=== PATIENT | male | born 1945 | race Caucasian/White ===

== ENCOUNTER 2019-08-26 11:26 | Observation (INO) | payer MEDICARE, SELFPAY ==
[2019-08-25 13:25] VITALS: BMI 28.7
[2019-08-26] VITALS (20 sets, daily range): BP systolic 102–148; BP diastolic 44–83; PULSE 43–67; RESP 14–24; TEMP 36.6–36.8; O2SAT 94–953
--- NOTE | 2019-08-26 06:00 | XACV_ITS ---
Ht: 183 cm Wt: 96 kg BSA: 2.23 m2 Gender: Male : 1945 Any Known Allergies: No known allergies Exam Priority: Routine Procedure(s): Procedure Description: Diagnostic procedure Procedure Description: PCI procedure Procedure Description: Left Heart Catheterization Procedure Description: Left ventriculography Procedure Description: Drug Eluting Coronary Stent Procedure Description: Coronary Angiography Diagnostic Cath Status: Elective Diagnostic Findings Patient with known coronary artery disease and remote occlusion of the LAD many years ago. Last angiogram in July 2017 revealing a significant lesion in the second obtuse marginal branch which was stented. Minor disease in the first obtuse marginal branch and mid right coronary artery. The LAD was occluded. 3 months ago came back to the office with what was atypical discomfort at first. Visited the emergency room several times. Initially declined stress testing and then the insurance company declined to allow angiography. Stress testing accomplished recently which revealed fixed defect in the distribution of the anterior wall and right coronary arteries. Estimated nuclear ejection fraction 25%. Estimated ejection fraction by echo 35%. Angiography performed via the right radial artery. The left main coronary artery is normal. The LAD is occluded at its origin. This is a chronic occlusion. The first obtuse marginal branch contains a 60% stenosis in the proximal portion. The second obtuse marginal branch is normal. The stented area is normal. The right coronary artery is a large dominant vessel and contains an ulcerated, eccentric 90% stenosis in the midportion. PCI Status: Elective PCI LVEF Assessed: Yes PCI Indication: New Onset Angina <= 2 months Interventional Findings The mid right coronary artery was stented primarily without event with a good angiographic result. Decision for PCI with Surgical Consult: No PCI for Multi-vessel Disease: No Conclusions Chronic occlusion of the LAD. Previously placed second obtuse marginal branch stent patent. New lesion mid right coronary artery primarily stented. Ejection fraction 35%. Wall motion disturbance in the distribution of the LAD as previously noted. Recommendations Medical therapy. Interventional RX Recommendation: PCI w/o planned CABG Diagnostic RX Recommendation: PCI w/o planned CABG Anticoagulation: Heparin Ventriculography Ejection Fraction: 35.0 % Left Ventriculography Findings: Mild hypokinesis of the inferior base and mid inferior wall. Mild hypokinesis of the anterior base. Akinesis of mid anterior wall and apex. Pressures Phase:Rest AO : 137 mmHg / 55 mmHg ( 85 mmHg ) @ 1:26:00 AM 113 mmHg / 43 mmHg ( 70 mmHg ) @ 1:36:00 AM 116 mmHg / 42 mmHg ( 70 mmHg ) @ 1:36:00 AM 95 mmHg / 41 mmHg ( 63 mmHg ) @ 1:44:00 AM 98 mmHg / 37 mmHg ( 56 mmHg ) @ 1:47:00 AM LV : 131 mmHg / 2 mmHg / @ 1:33:00 AM 128 mmHg / 0 mmHg / @ 1:36:00 AM 128 mmHg / 0 mmHg / @ 1:36:00 AM Valves Phase:DefaultPhase AV : 14.0 mmHg @ 7:57:07 AM 14.0 mmHg @ 7:57:07 AM AV Mean Gradient: 15.0 mmHg @ 7:57:07 AM 15.0 mmHg @ 7:57:07 AM Clinical Evaluation EBL: 5mL-10mL Procedural Details Procedure Consent Obtained. Pre-Procedure Time Out. Identified patient by full name and date of as verbalized by the patient/guarantor. Does the consent match the physician's order: Yes. Accurate & Complete Informed Consent: Yes. Inpatient/Outpatient History & Physical on Chart: Yes. If H&P is completed, is and addenduem needed: No; If yes, is the addendum complete: N/A. Visualize and Verify Site with Patient/Guarantor: N/A. Relevant Radiology Images available: N/A. Pre-op teaching completed and patient verbalized understanding. The risks, benefits, and alternatives of sedation and/or procedure were discussed by physician. The patient agrees to continue. Procedure started. Correct patient, site and procedure confirmed by cath team. PERRLA. Strong, equal hand deputy sheriff k9 handler bilaterally. Lungs clear x 5 lobes. IV Site on Arrival: 20 gauge in the left anticubital. IV Fluids: 0.9% NaCl at KVO. 0 mL infused prior to finishing lab technician. Pre Procedural Pulses: bilateral dorsalis pedis was Doppled. Pre Procedural Pulses: bilateral posterior tibial was Doppled. Pre Procedural Pulses: bilateral radial was 2+. Oxygen started at 2liters/min via nasal canula. bilateral groins was prepped with chloroprep then draped in the usual sterile fashion. Physician arrived. Equipment: 6F - Femoral. Cardiac Cath Pack. ACIST Manifold Kit Model BT 2000. Heparinized Saline (2 units/mL), 1000 mL bag. [facility] Clinical Fraility Score: 4: Vulnerable. 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 Chest Pain Symptom Assessment: Atypical Angina. Cardiovascular Instability: No. Baseline sample Acquired. HR: 59 BPM. Physician scrubbed in. Immediate Pre-Procedure Time Out. Correct Patient: Yes; Correct Procedure: Yes; Correct Site: Yes; Correct Patient Position: Yes; Correct Supplies: Yes; Dried Flammable Prep: Yes; Blood Products Available: N/A;. right radial was prepped with chloroprep then draped in the usual sterile fashion. Lidocaine 1% infiltrated to the right radial. Arterial access obtained. A 6 aust[place]ian TIG catheter in over wire. Multiple views taken of left coronary artery. Catheter redirected to the RCA. Multiple views taken of right coronary artery. Catheter removed over the exchange wire. A CRD 6F 145 degree Pigtail 110cm Diagnostic Catheter was advanced over the wire and used for Ventriculography. EDP Sample taken: LV 131/2,25; HR: 58 BPM; SpO2: 93%. LV gram performed in [place] @ 10 mL/second for a total of 30 mL. EDP Sample taken: LV 128/0,23; HR: 65 BPM; SpO2: 92%. Pullback taken: LV 128/0,23; AO 113/43(70); Mean: 15mmHg, Peak to Peak: 14mmHg, SEP: 21sec/min; HR: 61 BPM; SpO2: 93%. Catheter removed over the exchange wire. Inventory is [employer]onic [place] XT .014 190cm Str. Guidewire. Inventory is CRD 6FR JR 4 GUIDE 100cm. 6 aust[place]ian JR 4 guide catheter was inserted over the wire. [place] guidewire was advanced through the guide catheter to lesion in the prox RCA. Patient's family updated. Inflation Number : 1 Priya Londono ANJALI 3.5X15 LIZBETH -Lot Number# [id number] (exp date 06/01/2021) was prepped and advanced across the Mid RCA. The stent was deployed at 12 VANIA for 0:48 seconds. Results checked. Stent balloon and wire out. Guide catheter out. Physician scrubbed out. A TR Band was successful obtaining hemostatsis at the Right Radial artery insertion site. TR band placed. Hemostasis obtained. Post Procedure: Pulses reassessed and unchanged. PERRLA. Strong, equal hand deputy sheriff k9 handler bilaterally. No VTE prophylaxis required. Medication's Wasted: Lidocaine 1% = 18 mL. Medication's Wasted: Heparin = 1000 units. Total IV fluids: 50 mL. Complications: none. PCI Indication: unstable Angina. Estimated blood loss: 5mL-10mL. Procedure completed. Patient transferred by wheelchair to CPRU. Vital chart was stopped. Site: Right Radial artery Sheath Size: 6 Fr Hemostasis Method: TR Band Hemostasis Success: Successful Procedure Medications Start: 7:21 AM Stop: 7:21 AM Medication: Versed Amount: 1 mg Route: I.V. Start: 7:21 AM Stop: 7:21 AM Medication: Fentanyl Amount: 50 mcg Route: I.V. Start: 7:23 AM Stop: 7:23 AM Medication: Verapamil Amount: 5 mg Route: I.A. Start: 7:29 AM Stop: 7:29 AM Medication: Heparin Amount: 5000 units Route: I.V. Start: 7:37 AM Stop: 7:37 AM Medication: Versed Amount: 1 mg Route: I.V. Start: 7:37 AM Stop: 7:37 AM Medication: Fentanyl Amount: 50 mcg Route: I.V. I, the attending physician, have reviewed and verified all procedure medications. Yes, all medications given per verbal order History/Risk Factors Hypertension: Yes Dyslipidemia: Yes Peripheral Arterial Disease (PAD): No Myocardial Infarction (AR): Yes Obesity: No Renal Disease: No Tobacco Use: Former Prior Interventions PCI: Yes CABG: No Valve Surgery: No Date of PCI: 07/23/2017 Report Signatures Finalized by:Dr. Marcos Manley MD on 08/26/2019 8:08:55 AM
[2019-08-26] MEDS: diphenhydrAMINE 50 mg Capsule PO (06:24)
[2019-08-26 06:35] LABS: Basophils # 0.1 10^3/uL (0.0-0.1); Basophils % 0.9 %; Eosinophils # 0.8 10^3/uL (0.0-0.8); Eosinophils % 11.9 %; Hematocrit 40.5 % (42.0-52.0); Hemoglobin 13.6 g/dL (11.7-16.6); Lymphocytes # 1.3 10^3/uL (0.8-4.8); Lymphocytes % 20.8 %; Mean Corpuscular HGB Conc 33.6 g/dL (30.0-36.0); Mean Corpuscular Hemoglobin 30.8 pg (28.0-34.0); Mean Corpuscular Volume 91.8 fL (80-94); Mean Platelet Volume 11.1 fL (7.4-10.4); Monocytes # 0.6 10^3/uL (0.2-0.9); Monocytes % 8.6 %; Neutrophils # 3.7 10^3/uL (1.8-7.7); Neutrophils % 57.5 %; Nucleated Red Blood Cells % 0 %; Platelet Count 178 10^3/cmm (130-400); Red Blood Count 4.41 10^6/uL (4.1-5.3); Red Cell Distribution Width 12.6 % (12.1-15.1); White Blood Count 6.4 10^3/uL (4.0-10.0)
[2019-08-26 06:48] LABS: Anion Gap 14.2 (5-19); Blood Urea Nitrogen 21 mg/dL (8-23); Calcium 9.5 mg/dL (8.5-10.5); Carbon Dioxide 24 mmol/L (22-29); Chloride 106 mmol/L (98-107); Glucose 98 mg/dL (65-115); Osmolality Calculated 287 mOsm/kg (285-295); Potassium 4.2 mmol/L (3.5-5.1); Sodium 140 mmol/L (136-145)
--- NOTE | 2019-08-26 07:01 | PM.HP ---
Providers/Chief Complaint Admitting Physician: Vineet Primary Care Provider: Gregorio Cunningham DO Chief Complaint: left heart cath History of Present Illness Juarez Delgado is a 73 year old male who is being brought in electively for cardiac catheterization. He has an old anterior wall ME in July 2017 underwent coronary angiography. This revealed an LAD occlusion proximally with an ejection fraction of 35% and wall motion disturbance in this area. The circumflex was stented at that time. His pulmonary artery pressure was 35 mmHg. He has done relatively well since that time. I last saw him in May when he was complaining of chest pain off and on. He had been to the emergency room twice for chest pain. He also has a history of hypertension, dyslipidemia, chronic tobacco abuse, COPD and mild aortic stenosis. At the time I saw him in May he wanted something else done. Initially the insurance company declined the angiogram. They wanted a stress test first. He refused this. He is still having symptoms and so he has now been scheduled for angiography. Review of Systems General: Reports: 10 or more systems reviewed and unremarkable except in HPI and below Medications/Allergies Home Medications Medication Instructions Recorded Confirmed Last Taken Type aspirin 81 mg PO DAILY 08/25/19 08/25/19 08/26/19 04:30 History atorvastatin 40 mg PO DAILY 08/25/19 08/25/19 08/26/19 04:30 History carvedilol 3.125 mg PO BID 08/25/19 08/25/19 08/26/19 04:30 History levothyroxine [Synthroid] 75 mcg PO DAILY 08/25/19 08/25/19 08/26/19 04:30 History losartan 50 mg PO DAILY 08/25/19 08/25/19 08/26/19 04:30 History spironolactone 25 mg PO DAILY 08/25/19 08/25/19 08/26/19 04:30 History Allergies Allergy/AdvReac Type Severity Reaction Status Date / Time No Known Allergies Allergy Verified 08/26/19 06:50 PFSH Acute PFSH: Medical History (Updated 08/26/19 @ 07:08 by Marcos Manley MD) AMI (acute myocardial infarction) Previous anterior wall ME with occluded LAD Aortic stenosis CAD (coronary artery disease) Chronic kidney disease (CKD) stage G1/A1, glomerular filtration rate (GFR) equal to or greater than 90 mL/min/1.73 square meter and albuminuria creatinine ratio less than 30 mg/g COPD (chronic obstructive pulmonary disease) Dyspnea Erectile dysfunction HLD (hyperlipidemia) HTN (hypertension) Hypothyroidism Ischemic cardiomyopathy Squamous cell carcinoma skin of arm Tobacco abuse Social History Smoking and tobacco status: former smoker Quit status (tobacco): has quit using tobacco Alcohol intake: current Alcohol intake frequency: few times a month Vitals/I&O/Wt Last Vital Signs Temp 98.3 F 08/26/19 06:40 Pulse 58 L 08/26/19 06:40 Resp 16 08/26/19 06:40 BP 148/59 08/26/19 06:40 Pulse Ox 98 08/26/19 06:40 Weight last 48 hrs Weight 212 lb Physical Exam Narrative: EXAM NARRATIVE: GENERAL: In general he looks and feels well HEENT: Exam within normal limits. NECK: Supple without jugular vein distention. The carotid upstroke is normal without bruits. BACK: Exam normal. LUNGS: Clear. HEART: Regular rate and rhythm. ABDOMEN: Benign without organomegaly or tenderness. EXTREMITIES: No edema. NEUROLOGIC: Exam normal. SKIN: Unremarkable. Data : 08/26/19 06:25 08/26/19 06:25 A&P Assessment and plan (1) Chronic kidney disease (CKD) stage G1/A1, glomerular filtration rate (GFR) equal to or greater than 90 mL/min/1.73 square meter and albuminuria creatinine ratio less than 30 mg/g: Status: Acute Code(s): N18.1 - Chronic kidney disease, stage 1 (2) AMI (acute myocardial infarction): Status: Acute Code(s): I21.9 - Acute myocardial infarction, unspecified (3) Aortic stenosis: Status: Acute Code(s): I35.0 - Nonrheumatic aortic (valve) stenosis (4) CAD (coronary artery disease): Status: Acute Code(s): I25.10 - Atherosclerotic heart disease of [place] coronary artery without angina pectoris (5) COPD (chronic obstructive pulmonary disease): Status: Acute Code(s): J44.9 - Chronic obstructive pulmonary disease, unspecified (6) HLD (hyperlipidemia): Status: Acute Code(s): E78.5 - Hyperlipidemia, unspecified (7) HTN (hypertension): Status: Acute Code(s): I10 - Essential (primary) hypertension (8) Ischemic cardiomyopathy: Status: Acute Code(s): I25.5 - Ischemic cardiomyopathy (9) Tobacco abuse: Status: Acute Code(s): Z72.0 - Tobacco use (10) Chest pain: Status: Acute Code(s): R07.9 - Chest pain, unspecified Additional A&P Information Patient will undergo coronary angiography today because of chest discomfort. Further recommendations dependent upon the results of the test. Attestations Medical Necessity Statement*: Patient will be an outpatient in a bed. Will not need 2 midnight stay. Time Spent in Patient Care: Greater than 35 minutes Coding Level of Care Code Acute Electronic Security Technician for Chg Fwd History Detailed Exam Detailed Medical Decision Making Moderate Complexity Diagnoses Chronic kidney disease (CKD) stage G1/A1, glomerular filtration rate (GFR) equal to or greater than 90 mL/min/1.73 square meter and albuminuria creatinine ratio less than 30 mg/g N18.1 AMI (acute myocardial infarction) I21.9 Aortic stenosis I35.0 CAD (coronary artery disease) I25.10 COPD (chronic obstructive pulmonary disease) J44.9 HLD (hyperlipidemia) E78.5 HTN (hypertension) I10 Ischemic cardiomyopathy I25.5 Tobacco abuse Z72.0 Chest pain R07.9 Time Spent (min) 35
--- NOTE | 2019-08-26 08:00 | PC.NURSE ---
BACK FROM [facility] RECEIVED PATIENT BACK FROM THE [facility] VIA WHEELCHAIR WITH JOSE ANGEL CHIANG RN, TICKET AGENT, S/P PCI OF THE RCA. PATIENT AMBULATED EASILY TO THE BED. A & O X 3. KNIFE MACHINE OPERATOR PLACED AND VITAL SIGNS OBTAINED. TR BAND INTACT TO THE RIGHT WRIST. NO BLEEDING OR HEMATOMA NOTED. PALPABLE RADIAL PULSE. POST PROCEDURE RIGHT ARM ACTIVITY INSTRUCTIONS GIVEN VERBALLY TO THE PATIENT AND HIS SPOUSE. THEY BOTH VERBALIZED THEIR UNDERSTANDING. WILL CONTINUE TO MONITOR CLOSELY. AWAITING TRANSFER TO ICU ROOM 4 ON OVER FLOW ONCE THE ROOM IS AVAILABLE. NO OTHER ASSESSMENT CHANGES NOTED FROM PRE CATH ASSESSMENT. SPOUSE TO GO HOME SHORTLY TO TAKE CARE OF THE ANIMALS.
[2019-08-26] MEDS: sodium chloride 0.9% 1,000 ML 100 ML IV (08:27)
--- NOTE | 2019-08-26 09:00 | SUR.HOLD ---
BREAKFAST TO THE PATIENT.
--- NOTE | 2019-08-26 09:05 | PC.NURSE ---
TR BAND LETTING THE AIR OUT OF THE TR BAND PER PROTOCOL. PATIENT SITTING UP ON THE SIDE OF THE BED.
--- NOTE | 2019-08-26 09:40 | PC.NURSE ---
OOB NOTE PATIENT OOB AND AMBULATED TO THE RESTROOM. BACK TO THE RECLINER WITH NO PROBLEMS. VITAL SIGNS REMAIN STABLE. CONTINUE TO LET THE AIR OUT OF THE TR BAND. NO OTHER ASSESSMENT CHANGES NOTED.
--- NOTE | 2019-08-26 10:02 | PC.NURSE ---
TR BAND OFF TR BAND REMOVED. NO BLEEDING OR HEMATOMA NOTED. SITE CLEANSED WITH WARM WATER AND DRIED WITH A WASHCLOTH. A LARGE BAND AID WAS APPLIED AND SECURED WITH COBAN. PATIENT REMAINS UP IN CHAIR. NOW AT BEDSIDE. NO OTHER ASSESSMENT CHANGES NOTED.
--- NOTE | 2019-08-26 14:53 | PC.NURSE ---
Cath insertion assessed. Pulses present. Site assessed-no swelling, or bleeding noted. IV removed, catheter intact, and pressure dressing applied. Patient instructions given, patient verbalized understanding. Patient ambulated out of ICU with steady gait noted.
== END 2019-08-26 14:48 | disposition home or self-care (01) ==
LOC: ICU 11:27
PROVIDERS: Admitting Provider Internal Medicine Cardiovascular Disease; Family Provider Electrodiagnostic Medicine; PCP Electrodiagnostic Medicine; Visit Provider Internal Medicine Cardiovascular Disease
DX: I25.82 Chronic total occlusion of coronary artery (principal); I12.9 Hypertensive chronic kidney disease with stage 1 through stage 4 chronic kidney disease, or unspecified chronic kidney disease; N18.1 Chronic kidney disease, stage 1; I35.0 Nonrheumatic aortic (valve) stenosis; I25.10 Atherosclerotic heart disease of native coronary artery without angina pectoris; J44.9 Chronic obstructive pulmonary disease, unspecified; E78.5 Hyperlipidemia, unspecified; R07.9 Chest pain, unspecified; Z79.82 Long term (current) use of aspirin; E03.9 Hypothyroidism, unspecified; Z85.828 Personal history of other malignant neoplasm of skin; Z87.891 Personal history of nicotine dependence; I25.2 Old myocardial infarction
CPT/HCPCS: 12345; 80048; 85025; 93452; C1769; C1874; C1887; C1894; C9600; G0378; J1644; J2001; J2250; J3010; J7030; Q0163; Q9967

== ENCOUNTER → 2019-09-06 10:30 | Outpatient (BNVA) | payer MEDICARE, SELFPAY | PROVIDERS: Family Provider Electrodiagnostic Medicine; PCP Electrodiagnostic Medicine; Visit Provider Nurse Practitioner Family | DX: I25.10 Atherosclerotic heart disease of native coronary artery without angina pectoris (principal) | CPT/HCPCS: 80048 ==

== ENCOUNTER 2020-01-14 19:22 | Inpatient (IN) | payer MEDICARE, SELFPAY ==
[2020-01-14] VITALS (45 sets, daily range): BP systolic 69–111; BP diastolic 47–68; PULSE 63–120; RESP 14–48; TEMP 37.4–38.6; O2SAT 56–100; BMI 23.7
--- NOTE | 2020-01-14 19:30 | XRR_ITS ---
PROCEDURE INFORMATION: Exam: XR Chest, 1 View Exam date and time: 01/14/2020 7:42 PM Age: 74 years old Clinical indication: Dyspnea; Patient HX: Extreme SOB TECHNIQUE: Imaging protocol: XR of the chest Views: 1 view. COMPARISON: CR Chest 1 [place] [id number] 05/08/2019 12:21 AM FINDINGS: Lungs: [id number] bilateral perihilar and lower lobe opacities consistent with pneumonia versus atypical pulmonary edema. Pleural space: Unremarkable. No pleural effusion. No pneumothorax. Heart/Mediastinum: Unremarkable. No cardiomegaly. Bones/joints: Unremarkable. XR/XR chest 1V portable [id number] IMPRESSION: [id number] bilateral perihilar and lower lobe opacities consistent with pneumonia versus atypical pulmonary edema.
--- NOTE | 2020-01-14 19:31 | ECG_ITS ---
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 Measurements Intervals [place] Rate: 122 P: 61 WA: 175 QRS: -75 QRSD: 145 T: 91 QT: 312 QTc: 445 Interpretive Statements SINUS TACHYCARDIA RIGHT BUNDLE BRANCH BLOCK [120+ ms QRS DURATION, UPRIGHT V1, 40+ ms S IN I/aVL/V4/V5/V6] POSSIBLE ANTERIOR MYOCARDIAL INFARCTION , OF INDETERMINATE AGE [30 ms Q WAVE IN V3/V4, OR R < 0.2 mV IN V4] INFERIOR MYOCARDIAL INFARCTION , POSSIBLY ACUTE [40+ ms Q WAVE AND/OR ST/T Compared to ECG 05/08/2019 03:04:45 Myocardial infarct finding now present Sinus bradycardia no longer present Sinus arrhythmia no longer present Left-axis deviation no longer present Electronically Signed On 01-15-2020 13:49:57 CDT by Laura Collado M.D. [email or web address]
[2020-01-14] MEDS: LORazepam 2 mg/mL INJ 1 mL (19:48)
[2020-01-14] MEDS: succinylcholine 20 mg/mL SDV 10mL 160 MG IVP (20:01)
--- NOTE | 2020-01-14 20:02 | P.HP_ITS ---
Providers/Chief Complaint Primary Care Provider: Gregorio Cunningham DO Chief Complaint: SOB History of Present Illness Juarez Delgado is a 74 year old male who carries history of established coronary disease, status post coronary angiogram 08/26/2019 cardiac right radial catheterization revealed normal left main, occlusion of left anterior descending at the origin which is chronic proximal systolic stenosis at first obtuse marginal, second obtuse marginal normal, patent stent, RCA dominant with 90% midportion stenosis status post new stent, EF 45 to 50%, grade 1 diastolic dysfunction,. He also carries history of hypothyroidism, hypertension, dyslipidemia. Patient was seen at the urgent care yesterday for COPD exacerbation for which he was prescribed prednisone and antibiotics. Today he came back for worsening shortness of breath. Family stating that he is considerably active for his age, he works at the [employer]. For last couple of days he has been working outside. Today around noon when he was in his recliner he certainly got short of breath, he asked his to take him to the hospital right away. On arrival to the ER he was taking shallow breaths, extremely tachypneic, hypoxic 50% on room air, he was intubated by Dr. Brown. Kindly see his procedure note. Chest x-ray revealed pulmonary edema. At the time of my evaluation blood gas was taken which showed respiratory acidosis, we will repeat another blood gas in 30 minutes transferring to ICU, requested COVID, procalcitonin d-dimer TSH and BNP. EKG revealed sinus tachycardia heart rate 120, QTc normal, right bundle branch block with wide QRS. I have started him on heparin drip because of recent stent placement. Review of Systems General: Reports: ROS unobtainable due to endotracheal tube Medications/Allergies Home Medications Medication Instructions Recorded Confirmed Last Taken Type aspirin 81 mg PO DAILY 08/25/19 11/15/19 08/26/19 04:30 History atorvastatin 40 mg PO DAILY 08/25/19 11/15/19 08/26/19 04:30 History carvedilol 3.125 mg PO BID 08/25/19 11/15/19 08/26/19 04:30 History levothyroxine [Synthroid] 75 mcg PO DAILY 08/25/19 11/15/19 08/26/19 04:30 History losartan 50 mg tablet 50 mg PO DAILY #90 tab 10/06/19 11/15/19 Unknown Rx spironolactone 25 mg tablet 25 mg PO DAILY #90 tab 11/05/19 11/15/19 Unknown Rx clopidogrel 75 mg tablet 75 mg PO DAILY 90 Days #90 tab 11/15/19 11/15/19 Unknown Rx Allergies Allergy/AdvReac Type Severity Reaction Status Date / Time No Known Allergies Allergy Verified 11/15/19 13:15 PFSH Acute PFSH: Medical History (Updated 01/14/20 @ 23:00 by Francisco Oropeza MD) AMI (acute myocardial infarction) Aortic stenosis CAD (coronary artery disease) Chronic kidney disease (CKD) stage G1/A1, glomerular filtration rate (GFR) equal to or greater than 90 mL/min/1.73 square meter and albuminuria creatinine ratio less than 30 mg/g COPD (chronic obstructive pulmonary disease) Dyspnea Erectile dysfunction HLD (hyperlipidemia) HTN (hypertension) Hypothyroidism Ischemic cardiomyopathy Squamous cell carcinoma skin of arm Tobacco abuse Surgical History (Updated 01/14/20 @ 22:02 by Francisco Oropeza MD) S/P PTCA (percutaneous transluminal coronary angioplasty) August 2019 Family History Brother CAD (coronary artery disease) Social History Smoking and tobacco status: current every day smoker cigarettes Quit status (tobacco): has quit using tobacco Alcohol intake: current Alcohol intake frequency: few times a month Physical Exam Narrative: EXAM NARRATIVE: Head to toe examination Patient is intubated and sedated with propofol, systolic blood pressure 104, Heart rate ranging between 70 to 80s Telemetry showing wide QRS because of right bundle branch block, Bright red blood being suctioned from endotracheal tube CMV 550 tidal volume PEEP of 10, resp rate 14, Sunburned skin S1, S2 sinus tachycardia clinically does not look fluid overloaded Abdomen does not look distended Patient is intubated cannot do neuro assessment however he is waking up on propofol, propofol infusion rate increased Lower extremity no signs of edema gangrene ulcer He has right-sided femoral line which was placed by Dr. Brown Ryan catheter is draining concentrated yellow urine Data : 01/14/20 20:04 01/14/20 20:04 A&P Assessment and plan (1) Respiratory failure: Status: Acute (2) CHF exacerbation: Status: Acute (3) Endotracheally intubated: Status: Acute (4) Community acquired pneumonia: Status: Acute (5) Bilateral pleural effusion: Status: Acute (6) Ischemic cardiomyopathy: Status: Acute (7) COPD (chronic obstructive pulmonary disease): Status: Acute (8) CAD (coronary artery disease): Status: Acute Qualifiers: Associated angina: angina presence unspecified Coronary Disease- Associated Artery/Lesion type: [place] artery [place] vs. transplanted heart: sob[place] heart Qualified Code(s): I25.10 - Atherosclerotic heart disease of [place] coronary artery without angina pectoris (9) Sepsis: Status: Acute (10) Acute respiratory failure with hypoxia and hypercapnia: Status: Acute Additional A&P Information Respiratory failure requiring intubation for acute hypoxic hypercarbic respiratory failure Hypoxic respiratory failure due to CHF exacerbation Bilateral pleural effusion with concerning changes for community-acquired pneumonia I would diurese him with 40 IV Lasix every 12 hours Echo 01/28 showed grade 1 diastolic dysfunction EF 45 to 50% with mild aortic valve regurgitation We will repeat echo in the am, elevated BNP, clinically does not look extremely fluid overloaded Check urine antigens, COVID to be ruled out CMV vent settings tidal volume 550, PEEP 10, pressure rate 14-minute ventilation 9-10, repeat blood gas in 30mins Sepsis Criteria met with fever rectal temperature 101, tachycardia, tachypnea, leukocytosis, high lactic acid Source is most likely community-acquired pneumonia Considering his comorbid condition and COPD I would cover him for MRSA and Pseudomonas with vancomycin and Zosyn to be renally dosed Acute kidney injury secondary to prerenal etiology versus nephrotoxic agent Concentrated urine drained after getting Lasix in the ER Hold losartan for along spironolactone Established multivessel coronary disease with stent placement in RCA in August 2019 I would start him on heparin drip, as a portion of aspirin and Plavix is questionable via NG tube Will check troponin, EKG is revealing right bundle branch block wide QRS sinus tachycardia no signs of ischemia or infarction I am still waiting on troponin series Hypothyroidism: Continue levothyroxine via NG tube We will check TSH Full code Currently on heparin drip because of PCI in August, N.p.o. Family updated Attestations Medical Necessity Statement*: Anticipating stay in the hospital cross more than 2 midnights currently is intubated for CHF exacerbation Time Spent in Patient Care: (>than 50% of time spent in counselling and/or dir ect pt care on unit) . 45mins Coding Level of Care Code Acute Building Superintendent for Chg Fwd Diagnoses Respiratory failure J96.90 CHF exacerbation I50.9 Endotracheally intubated Z97.8 Community acquired pneumonia J18.9 Bilateral pleural effusion J90 Ischemic cardiomyopathy I25.5 COPD (chronic obstructive pulmonary disease) J44.9 CAD (coronary artery disease) I25.10 Associated angina: angina presence unspecified Coronary Disease-Associated Artery/Lesion type: [place] artery [place] vs. transplanted heart: [place] heart Sepsis A41.9 Acute respiratory failure with hypoxia and hypercapnia J96.01; J96.02
[2020-01-14] MEDS: propofol 1,000 MG/100 ML INJ 15.7 MG (20:03)
[2020-01-14] MEDS: fentaNYL 50 mcg/mL INJ 2mL 100 MCG IVP (20:04)
[2020-01-14] MEDS: FUROsemide 10 mg/mL SDV 10mL 80 MG IVP (20:06)
[2020-01-14] MEDS: ipratropium-albuterol 3 mL Neb INHALATION (20:10)
[2020-01-14 20:16] LABS: Basophils % 0.1 %; Eosinophils % 0.1 %; Hematocrit 41.8 % (42.0-52.0); Hemoglobin 13.5 g/dL (11.7-16.6); Lymphocytes # 1.8 10^3/uL (0.8-4.8); Lymphocytes % 12.4 %; Mean Corpuscular HGB Conc 32.3 g/dL (30.0-36.0); Mean Corpuscular Hemoglobin 31.3 pg (28.0-34.0); Mean Corpuscular Volume 96.8 fL (80-94); Mean Platelet Volume 12.3 fL (7.4-10.4); Monocytes # 0.6 10^3/uL (0.2-0.9); Monocytes % 4.2 %; Neutrophils # 11.7 10^3/uL (1.8-7.7); Neutrophils % 82.7 %; Nucleated Red Blood Cells % 0 %; Platelet Count 204 10^3/cmm (130-400); Red Blood Count 4.32 10^6/uL (4.1-5.3); Red Cell Distribution Width 13.1 % (12.1-15.1); White Blood Count 14.2 10^3/uL (4.0-10.0)
[2020-01-14 20:19] LABS: ABG PCO2 55.1 mmHg (35-45); Arterial Blood Gas Hematocrit 41.2 % (42-52); Base Excess ABG -10.8 mmol/L (-2.0-2.0); Blood Gas Sample Site Brachial, right; Blood Gas Sample Type Arterial; Blood Gas Tidal Volume 0.55; Carboxyhemoglobin 1.2 %THgb (0.4-20.1); Fractionated Inspired Oxygen 0.1 %; HCO3 ABG 18.6 mmol/L (22-26); HGB O2 Sat 98.7 % (95-100); Oxygen Device VENT; Total Hemoglobin 13.5 g/dL (14-18)
[2020-01-14 20:20] LABS: ABG PH Result 7.14 (7.35-7.45)
--- NOTE | 2020-01-14 20:21 | XRR_ITS ---
PROCEDURE INFORMATION: Exam: XR Chest, 1 View Exam date and time: 01/14/2020 8:22 PM Age: 74 years old Clinical indication: Dyspnea; Additional info: Post intubation TECHNIQUE: Imaging protocol: XR of the chest Views: 1 view. COMPARISON: CR XR chest 1V portable [id number] 01/14/2020 7:28 PM FINDINGS: Tubes, catheters and devices: ET tube tip over the mid trachea, 4.5 cm proximal to the marie. Enteric tube tip is over the fundus of the stomach (proximal stomach). Lungs: Continued [id number] bilateral lower lobe pneumonia, left greater than right. Pleural space: Unremarkable. No pleural effusion. No pneumothorax. Heart/Mediastinum: Unremarkable. No cardiomegaly. Bones/joints: Unremarkable. XR/XR chest 1V portable [id number] IMPRESSION: 1. ET tube tip over the mid trachea, 4.5 cm proximal to the marie. 2. Enteric tube tip is over the fundus of the stomach (proximal stomach). 3. Continued [id number] bilateral lower lobe pneumonia, left greater than right.
--- NOTE | 2020-01-14 20:23 | W.ED.GENADLT ---
HPI - General Adult General: Chief complaint: Shortness of Breath/Dyspnea Stated complaint: SOB Time Seen by Provider: 01/14/20 19:31 Source: family Mode of arrival: wheelchair Limitations: other (Respiratory distress) History of Present Illness: HPI narrative: History is very limited secondary to patient's respiratory distress. History is taken from the patient's family. Apparently the patient's been having difficulty breathing and coughing for the past 2 days. He was seen at Dr. Cunningham's office yesterday and diagnosed with a COPD exacerbation. He was placed on steroids and antibiotic. Family states that he had heat exhaustion as well as he is been working outside in the heat. Today his respiratory distress became severe necessitating bringing him here to the hospital. Review of Systems General: Reports: ROS unobtainable due to medical condition (Respiratory distress) [facility] ED PFSH: Medical History (Updated 01/15/20 @ 12:55 by Sharmin Mireles) AMI (acute myocardial infarction) Aortic stenosis CAD (coronary artery disease) Chronic kidney disease (CKD) stage G1/A1, glomerular filtration rate (GFR) equal to or greater than 90 mL/min/1.73 square meter and albuminuria creatinine ratio less than 30 mg/g COPD (chronic obstructive pulmonary disease) Dyspnea Erectile dysfunction HLD (hyperlipidemia) HTN (hypertension) Hypothyroidism Ischemic cardiomyopathy Squamous cell carcinoma skin of arm Tobacco abuse Surgical History (Updated 01/15/20 @ 11:24 by Remi Huffman MD) S/P PTCA (percutaneous transluminal coronary angioplasty) August 2019 Family History Brother CAD (coronary artery disease) Social History Smoking and tobacco status: current every day smoker cigarettes Quit status (tobacco): has quit using tobacco Alcohol intake: current Alcohol intake frequency: few times a month Procedures Central Line Placement Right Femoral: Time Out Performed: Yes Patient Placed on Monitor/Pulse Ox: Yes Prep: mask and gloves Ultrasound Used for Placement: Yes Central Line Lumen Inserted: triple Post Procedure: sutured in place, good blood return, all ports aspirated, flushed, capped and sterile dressing applied Post Procedure X-Ray: tip of catheter in good position Patient Tolerated Procedure: well Complications: none Intubation sedative: Etomidate Mg Given: 30 paralytic: Succinylcholine Mg Given: 150 Laryngoscope: fiber optic video scope ET Tube Size: 8 ET Tube Uncuffed: Yes Tube Secured Location: teeth Tube Placement Confirmation: visualized tube passing through cords, equal breath sounds bilaterally and no breath sounds over epigastrium Patient Tolerated Procedure: well and no complications Intubation Complications: none Course Vital Signs: Vital signs: Vital Signs Temperature 95.5 F L 01/15/20 07:00 Pulse Rate 40 L 01/15/20 07:00 Respiratory Rate 19 H 01/15/20 11:29 Blood Pressure 112/54 01/15/20 07:00 Pulse Oximetry 97 01/15/20 07:00 MDM - General Adult MDM Narrative: Medical decision making narrative: Once patient was intubated and central line was placed and radiologic studies were reviewed and the patient was stabilized care was turned over to Dr. Oropeza. He agreed to follow-up on laboratory findings and EKGs and admit to the ICU. Lab Data: Attestation: I reviewed the patient's lab results. Labs: Lab Results 01/14/20 01/14/20 01/14/20 Range/Units 20:04 20:04 20:04 WBC 14.2 H (4.0-10.0) 10^3/ uL RBC 4.32 (4.1-5.3) 10^6/u L Hgb 13.5 (11.7-16.6) g/dL Hct 41.8 L (42.0-52.0) % MCV 96.8 H (80-94) fL MCH 31.3 (28.0-34.0) pg MCHC 32.3 (30.0-36.0) g/dL RDW 13.1 (12.1-15.1) % Plt Count 204 (130-400) 10^3/c mm MPV 12.3 H (7.4-10.4) fL Neut % (Auto) 82.7 % Lymph % (Auto) 12.4 % Pacific % (Auto) 4.2 % Eos % (Auto) 0.1 % Baso % (Auto) 0.1 % Neut # (Auto) 11.7 H (1.8-7.7) 10^3/u L Lymph # (Auto) 1.8 (0.8-4.8) 10^3/u L Pacific # (Auto) 0.6 (0.2-0.9) 10^3/u L Eos # (Auto) 0.0 (0.0-0.8) 10^3/u L Baso # (Auto) 0.0 (0.0-0.1) 10^3/u L Nucleated RBC % (a uto) 0 % Nucleated RBCs # 0.0 /100WBC PT 13.70 H (10.5-13.3) SECO NDS INR 1.02 (0.8-1.2) Specimen Type Sample Site ABG pH (7.35-7.45) ABG pCO2 (35-45) mmHg ABG pO2 (80.0-100.0) mmH g ABG HCO3 (22-26) mmol/L ABG Base Excess (-2.0-2.0) mmol/ L Jae Test Hematocrit (42-52) % Hgb O2 Saturation (95-100) % Carboxyhemoglobin (0.4-20.1) %THgb Total Hemoglobin (14-18) g/dL Respiration Rate % O2 Delivery Device Mechanical Rate FiO2 % Tidal Volume PEEP cmH20 Bag Shop Worker ID Sodium 131 L (136-145) mmol/L Potassium 5.0 (3.5-5.1) mmol/L Chloride 99 (98-107) mmol/L Carbon Dioxide 18 L (22-29) mmol/L Anion Gap 19.0 (5-19) BUN 26 H (8-23) mg/dL Creatinine 1.7 H (0.7-1.2) mg/dL Glucose 220 H (65-115) mg/dL Calculated Osmolal ity 276 L (285-295) mOsm/k g Lactic Acid (0.5-2.2) mmol/L Calcium 8.2 L (8.5-10.5) mg/dL Phosphorus (2.5-4.5) mg/dL Total Bilirubin 0.6 (0.15-1.2) mg/dL AST 306 H (0-40) U/L ALT 189 H (0-41) U/L Alkaline Phosphata se 99 (40-130) IU/L Lactate Dehydrogen ase (135-225) U/L Troponin T Baselin e (0-15) ng/L C-Reactive Protein (0.0-4.9) mg/L NT-Pro-B Natriuret Pep 4726 H (0-125) pg/mL Total Protein 6.8 (6.6-8.7) g/dL Albumin 3.4 L (3.5-5.2) g/dL Globulin 3.4 (1.3-4.6) g/dL Procalcitonin (0-0.5) ng/mL TSH (0.27-4.20) uIU/ mL 01/14/20 01/14/20 01/14/20 Range/Units 20:04 20:04 20:04 WBC (4.0-10.0) 10^3/ uL RBC (4.1-5.3) 10^6/u L Hgb (11.7-16.6) g/dL Hct (42.0-52.0) % MCV (80-94) fL MCH (28.0-34.0) pg MCHC (30.0-36.0) g/dL RDW (12.1-15.1) % Plt Count (130-400) 10^3/c mm MPV (7.4-10.4) fL Neut % (Auto) % Lymph % (Auto) % Pacific % (Auto) % Eos % (Auto) % Baso % (Auto) % Neut # (Auto) (1.8-7.7) 10^3/u L Lymph # (Auto) (0.8-4.8) 10^3/u L [place] # (Auto) (0.2-0.9) 10^3/u L Eos # (Auto) (0.0-0.8) 10^3/u L Baso # (Auto) (0.0-0.1) 10^3/u L Nucleated RBC % (a uto) % Nucleated RBCs # /100WBC PT (10.5-13.3) SECO NDS INR (0.8-1.2) Specimen Type Sample Site ABG pH (7.35-7.45) ABG pCO2 (35-45) mmHg ABG pO2 (80.0-100.0) mmH g ABG HCO3 (22-26) mmol/L ABG Base Excess (-2.0-2.0) mmol/ L Jae Test Hematocrit (42-52) % Hgb O2 Saturation (95-100) % Carboxyhemoglobin (0.4-20.1) %THgb Total Hemoglobin (14-18) g/dL Respiration Rate % O2 Delivery Device Mechanical Rate FiO2 % Tidal Volume PEEP cmH20 Bag Shop Worker ID Sodium (136-145) mmol/L Potassium (3.5-5.1) mmol/L Chloride (98-107) mmol/L Carbon Dioxide (22-29) mmol/L Anion Gap (5-19) BUN (8-23) mg/dL Creatinine (0.7-1.2) mg/dL Glucose (65-115) mg/dL Calculated Osmolal ity (285-295) mOsm/k g Lactic Acid 2.3 H (0.5-2.2) mmol/L Calcium (8.5-10.5) mg/dL Phosphorus (2.5-4.5) mg/dL Total Bilirubin (0.15-1.2) mg/dL AST (0-40) U/L ALT (0-41) U/L Alkaline Phosphata se (40-130) IU/L Lactate Dehydrogen ase 514 H (135-225) U/L Troponin T Baselin e 112 H* (0-15) ng/L C-Reactive Protein 165.8 H (0.0-4.9) mg/L NT-Pro-B Natriuret Pep (0-125) pg/mL Total Protein (6.6-8.7) g/dL Albumin (3.5-5.2) g/dL Globulin (1.3-4.6) g/dL Procalcitonin 0.39 (0-0.5) ng/mL TSH (0.27-4.20) uIU/ mL 01/14/20 01/14/20 Range/Units 20:04 20:08 WBC (4.0-10.0) 10^3/ uL RBC (4.1-5.3) 10^6/u L Hgb (11.7-16.6) g/dL Hct (42.0-52.0) % MCV (80-94) fL MCH (28.0-34.0) pg MCHC (30.0-36.0) g/dL RDW (12.1-15.1) % Plt Count (130-400) 10^3/c mm MPV (7.4-10.4) fL Neut % (Auto) % Lymph % (Auto) % Pacific % (Auto) % Eos % (Auto) % Baso % (Auto) % Neut # (Auto) (1.8-7.7) 10^3/u L Lymph # (Auto) (0.8-4.8) 10^3/u L [place] # (Auto) (0.2-0.9) 10^3/u L Eos # (Auto) (0.0-0.8) 10^3/u L Baso # (Auto) (0.0-0.1) 10^3/u L Nucleated RBC % (a uto) % Nucleated RBCs # /100WBC PT (10.5-13.3) SECO NDS INR (0.8-1.2) Specimen Type Arterial Sample Site Brachial, right ABG pH 7.14 L* (7.35-7.45) ABG pCO2 55.1 H (35-45) mmHg ABG pO2 148.0 H (80.0-100.0) mmH g ABG HCO3 18.6 L (22-26) mmol/L ABG Base Excess -10.8 L (-2.0-2.0) mmol/ L Jae Test N/a Hematocrit 41.2 L (42-52) % Hgb O2 Saturation 98.7 (95-100) % Carboxyhemoglobin 1.2 (0.4-20.1) %THgb Total Hemoglobin 13.5 L (14-18) g/dL Respiration Rate 14.0 % O2 Delivery Device Vent Mechanical Rate 14.0 FiO2 0.1 % Tidal Volume 0.55 PEEP 10.0 cmH20 Bag Shop Worker ID [email or web address] Sodium (136-145) mmol/L Potassium (3.5-5.1) mmol/L Chloride (98-107) mmol/L Carbon Dioxide (22-29) mmol/L Anion Gap (5-19) BUN (8-23) mg/dL Creatinine (0.7-1.2) mg/dL Glucose (65-115) mg/dL Calculated Osmolal ity (285-295) mOsm/k g Lactic Acid (0.5-2.2) mmol/L Calcium (8.5-10.5) mg/dL Phosphorus 4.6 H (2.5-4.5) mg/dL Total Bilirubin (0.15-1.2) mg/dL AST (0-40) U/L ALT (0-41) U/L Alkaline Phosphata se (40-130) IU/L Lactate Dehydrogen ase (135-225) U/L Troponin T Baselin e (0-15) ng/L C-Reactive Protein (0.0-4.9) mg/L NT-Pro-B Natriuret Pep (0-125) pg/mL Total Protein (6.6-8.7) g/dL Albumin (3.5-5.2) g/dL Globulin (1.3-4.6) g/dL Procalcitonin (0-0.5) ng/mL TSH 1.55 (0.27-4.20) uIU/ mL EKG Data^: EKG 1: Attestation: I personally reviewed and interpreted this EKG as follows: EKG interpretation date: 01/14/20 EKG interpretation time: 19:41 Interpretation: Sinus rhythm at 122 with right bundle branch block, findings consistent with previous EKGs. Computer generated interpretation: Chest X-Ray 01/15/20 05:57 IMPRESSION: 1. Endotracheal tube 6.1 cm above the marie. 2. Mild central bronchial inflammation/edema. 3. Nonspecific left basilar airspace disease. Critical Care Time Critical Care Time: Critical Care Time: Yes Total Critical Care Time: 30 Attestation: Critical care time is exclusive of billable procedures. Clinical care time consisted of talking to family, prepping the patient for intubation. Critical care time consisted of review of radiologic procedures, laboratory potation and consultation with specialist physicians for admission. Discharge Plan Discharge Patient Disposition: Admitted As Inpatient Admit Provider: Francisco Oropeza Clinical Impression: Respiratory failure Qualifiers: Chronicity: acute Respiratory failure complication: hypoxia and hypercapnia Qualified Code(s): J96.01 - Acute respiratory failure with hypoxia Condition: Stable Discharge Orders: Transfer Out of Facility (Order); Ordered 01/15/20 Ordered By: Remi Huffman Interventions: ED Discharge Assessment Last Done: 01/14/20 23:21 ED Charges Last Done: 01/14/20 23:21 Discharge Date/Time: 01/14/20 23:26 Coding Level of Care Code ED Knife Setter Assembler for Kuldeep Wright
[2020-01-14 20:25] LABS: INR 1.02 (0.8-1.2)
[2020-01-14 20:30] LABS: Lactic Sepsis W/Reflex 2.3 mmol/L (0.5-2.2)
[2020-01-14 20:39] LABS: Alanine Aminotransferase 189 U/L (0-41); Albumin Level 3.4 g/dL (3.5-5.2); Alkaline Phosphatase 99 IU/L (40-130); Blood Urea Nitrogen 26 mg/dL (8-23); Calcium 8.2 mg/dL (8.5-10.5); Carbon Dioxide 18 mmol/L (22-29); Chloride 99 mmol/L (98-107); Globulin 3.4 g/dL (1.3-4.6); Glucose 220 mg/dL (65-115); NT Pro B Type Natriuretic Pept 4726 pg/mL (0-125); Osmolality Calculated 276 mOsm/kg (285-295); Sodium 131 mmol/L (136-145); Total Bilirubin 0.6 mg/dL (0.15-1.2); Total Protein 6.8 g/dL (6.6-8.7)
--- NOTE | 2020-01-14 21:31 | ECG_ITS ---
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 Measurements Intervals [place] Rate: 90 P: 60 NV: 161 QRS: -79 QRSD: 149 T: 80 QT: 368 QTc: 452 Interpretive Statements SINUS RHYTHM POSSIBLE RIGHT ATRIAL ENLARGEMENT [0.25mV P WAVE] POSSIBLE LEFT ATRIAL ENLARGEMENT [-0.1mV P WAVE IN V1/V2] LEFT AXIS DEVIATION [QRS AXIS < -30] INTRAVENTRICULAR CONDUCTION DELAY [130+ ms QRS DURATION] PROBABLE ANTEROSEPTAL MYOCARDIAL INFARCTION , OF INDETERMINATE AGE [35 ms Q WAVE IN V1-V4] Compared to ECG 01/14/2020 19:41:20 Left-axis deviation now present Intraventricular conduction delay now present Sinus tachycardia no longer present Right bundle-branch block no longer present Myocardial infarct finding still present Electronically Signed On 01-15-2020 14:01:09 CDT by Laura Collado M.D. [email or web address]
[2020-01-14 21:54] LABS: Reflex Lactate Order REFLEX LACTIC ORDERD
[2020-01-14 22:12] LABS: Troponin(5th) Baseline 112 ng/L (0-15)
[2020-01-14 22:13] LABS: Troponin 5 2HR 149.5 ng/L (0-15); Troponin 5 2HR Delta 37.5 ABS# (0-10)
--- NOTE | 2020-01-14 22:13 | PC.NURSE ---
Room in icu clean and ready. Call to ED with no answer for report.
[2020-01-14 22:15] LABS: Aspartate Amino Transferase 306 U/L (0-40)
[2020-01-14 22:27] LABS: ABG PCO2 47.5 mmHg (35-45); ABG PH Result 7.23 (7.35-7.45); Arterial Blood Gas Hematocrit 44.8 % (42-52); Base Excess ABG -7.9 mmol/L (-2.0-2.0); Blood Gas Allen Test Pos; Blood Gas Sample Site Radial, right; Blood Gas Sample Type Arterial; Blood Gas Tidal Volume 0.55; HCO3 ABG 19.8 mmol/L (22-26); Oxygen Device VENT; PO2 ABG 84.7 mmHg (80.0-100.0)
[2020-01-14] MEDS: fentaNYL 50 mcg/mL INJ 2mL IVP (22:50)
[2020-01-14 23:06] LABS: Lactic Acid level (Lactate) 0.2 mmol/L (0.5-2.2)
--- NOTE | 2020-01-14 23:21 | PC.PHAR ---
Pharmacokinetic dosing service Date: 01/14/20 Time: 2321 Objective: Patient: Juarez Delgado Floor: ICU-9 Age: 74 yo Serum creatinine: 1.7 mg/dL Height: 72.0 Inches Weight (kg): 79.379 Diagnosis: Relevant medical/social history: Cultures and sensitivities: Other labs: Assessment: IBW (kg): 77.60 Dosing wt(kg): 79.379 Estimated Creatinine clearance (ml/min): 42.5 CRCL method: Cockcroft and Gault using ibw(default). Drug selected: Vancomycin Loading dose (mg): 0 Vd (liters): 71.4 (factor used: 0.9 L/kg) Kyrie (hr-1): 0.040 Half life (hrs): 17.33 Recommended dose: 1500 mg Interval: 24 hrs Infusion time (hrs): 1.5 Predicted peak (mcg/mL): 33.0 Predicted trough (mcg/mL): 13.42 Total body weight is being used for vancomycin dosing. Renal function is stable [ ] /unstable [ ] Recommendations: Give Vancomycin 1500 mg q 24 hrs with an expected Cpeak of 33.0 mcg/ml and an expected Ctrough of 13.42 mcg/ml Renal dosing of other antibiotics (review renal dosing of other medications and list guidelines here): Thank you for the consult, will continue to follow. Signature: Quyen Lepe [facility]
[2020-01-15] VITALS (90 sets, daily range): BP systolic 68–166; BP diastolic 33–118; PULSE 40–151; RESP 15–27; TEMP 35.3–37.2; O2SAT 93–100
[2020-01-15 00:06] LABS: Phosphorus 4.6 mg/dL (2.5-4.5); Thyroid Stimulating Hormone 1.55 uIU/mL (0.27-4.20)
[2020-01-15] MEDS: heparin 5,000 unit/mL INJ 1 mL IV (00:24)
[2020-01-15] MEDS: sodium chloride 0.9% 500 ML 999 ML IV ×2 (00:24→06:31)
[2020-01-15] MEDS: FUROsemide 10 mg/mL SDV 10mL 40 MG IVP (00:25)
[2020-01-15] MEDS: heparin drip 25,000 UNIT/500 ML PREMIX 26 UNIT IV (00:30)
[2020-01-15] MEDS: sodium chloride 0.9% (100 ml) 100 ML 10 ML (00:35)
[2020-01-15] MEDS: piperacillin-tazobactam 3.375 GM in sodium chloride 0.9% (plus) 50 ML IV ×2 (00:51→07:32)
[2020-01-15] MEDS: propofol 1,000 MG/100 ML INJ 11.9 MG IV ×2 (01:27→08:50)
[2020-01-15 02:01] LABS: Procalcitonin 0.39 ng/mL (0-0.5)
[2020-01-15 02:18] LABS: C Reactive Protein 165.8 mg/L (0.0-4.9)
[2020-01-15 02:45] LABS: Lactate Dehydrogenase 514 U/L (135-225)
[2020-01-15 03:10] LABS: Basophils % 0.1 %; Hematocrit 37.5 % (42.0-52.0); Hemoglobin 12.2 g/dL (11.7-16.6); Lymphocytes # 0.6 10^3/uL (0.8-4.8); Lymphocytes % 3.8 %; Mean Corpuscular HGB Conc 32.5 g/dL (30.0-36.0); Mean Corpuscular Hemoglobin 31.2 pg (28.0-34.0); Mean Corpuscular Volume 95.9 fL (80-94); Mean Platelet Volume 12.7 fL (7.4-10.4); Monocytes # 0.3 10^3/uL (0.2-0.9); Monocytes % 2.2 %; Neutrophils # 14.2 10^3/uL (1.8-7.7); Neutrophils % 93.3 %; Nucleated Red Blood Cells % 0 %; Platelet Count 208 10^3/cmm (130-400); Red Blood Count 3.91 10^6/uL (4.1-5.3); Red Cell Distribution Width 13.2 % (12.1-15.1); White Blood Count 15.2 10^3/uL (4.0-10.0)
[2020-01-15 04:07] LABS: Anion Gap 17.7 (5-19); Blood Urea Nitrogen 27 mg/dL (8-23); Calcium 7.5 mg/dL (8.5-10.5); Carbon Dioxide 18 mmol/L (22-29); Chloride 103 mmol/L (98-107); Glucose 201 mg/dL (65-115); Osmolality Calculated 281 mOsm/kg (285-295); Potassium 4.7 mmol/L (3.5-5.1); Sodium 134 mmol/L (136-145)
[2020-01-15 05:16] LABS: Troponin 5 6HR 261.7 ng/L (0-15); Troponin 5 6HR Delta 149.7 ng/L (0-12)
[2020-01-15 05:25] LABS: ABG PCO2 34.9 mmHg (35-45); Arterial Blood Gas Hematocrit 37.4 % (42-52); Base Excess ABG -8.2 mmol/L (-2.0-2.0); Blood Gas Allen Test Pos; Blood Gas Sample Site Radial, right; Blood Gas Sample Type Arterial; Blood Gas Tidal Volume 0.55; Carboxyhemoglobin 0.3 %THgb (0.4-20.1); HCO3 ABG 17.3 mmol/L (22-26); HGB O2 Sat 97.8 % (95-100); Oxygen Device VENT; Total Hemoglobin 12.2 g/dL (14-18)
--- NOTE | 2020-01-15 05:57 | XRR_ITS ---
PROCEDURE INFORMATION: Exam: XR Chest, 1 View Exam date and time: 01/15/2020 6:26 AM Age: 74 years old Clinical indication: Shortness of breath; CHF? TECHNIQUE: Imaging protocol: XR of the chest Views: 1 view. COMPARISON: CR XR chest 1V portable [id number] 01/14/2020 8:12 PM FINDINGS: Tubes, catheters and devices: There is an endotracheal tube present with the tip 6.1 cm above the marie. An enteric tube extends down into the stomach. Lungs: No central pulmonary vascular congestion. Mild bilateral central bronchial wall thickening. No septal line formation or fissural thickening. There is left basilar airspace disease, not significantly changed. Improved aeration of the right lung base. Prior pulmonary granulomatous disease. Pleural space: No pleural effusion or pneumothorax. Heart/Mediastinum: The cardiac silhouette is not enlarged. The mediastinal contours are normal. Bones/joints: Slight curvature of the upper thoracic spine convex to the left. There are multilevel bridging osteophytes in the spine. XR/XR chest 1V portable [id number] IMPRESSION: 1. Endotracheal tube 6.1 cm above the marie. 2. Mild central bronchial inflammation/edema. 3. Nonspecific left basilar airspace disease.
[2020-01-15 07:32] LABS: Partial Thromboplastin Time 87.3 SECONDS (23.9-36.7)
[2020-01-15 07:33] LABS: D Dimer 4.46 ug/mIFEU (0-0.59)
[2020-01-15] MEDS: pantoprazole 40 mg SDV IVP (08:49)
[2020-01-15] MEDS: aspirin 81 mg EC Tablet PO (08:49)
[2020-01-15] MEDS: atorvastatin 40 mg Tablet NG-TUBE (08:49)
[2020-01-15] MEDS: clopidogrel 75 mg Tablet NG-TUBE (08:49)
[2020-01-15] MEDS: levothyroxine 150 mcg Tablet 75 MCG OG-TUBE (08:49)
[2020-01-15 09:12] LABS: Glucose Point of Care 194 mg/dL (70-110)
[2020-01-15 09:12] LABS: Glucose Point of Care 154 mg/dL (70-110)
--- NOTE | 2020-01-15 10:22 | ECG_ITS ---
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 Measurements Intervals [place] Rate: 52 P: 8 HI: 144 QRS: -76 QRSD: 158 T: -40 QT: 544 QTc: 510 Interpretive Statements SINUS BRADYCARDIA MARKED LEFT AXIS DEVIATION [QRS AXIS < -30] INTRAVENTRICULAR CONDUCTION DELAY [130+ ms QRS DURATION] PROBABLE SEPTAL MYOCARDIAL INFARCTION [35 ms Q WAVE IN V1/V2], OF INDETERMINATE AGE Compared to ECG 01/14/2020 22:27:29 Sinus rhythm no longer present Myocardial infarct finding still present Electronically Signed On 01-15-2020 14:09:37 CDT by Laura Collado M.D. [email or web address]
[2020-01-15] MEDS: DOPamine drip 400 MG/250 ML PREMIX 14.9 MG IV (11:21)
--- NOTE | 2020-01-15 11:22 | P.PN_ITS ---
Subjective Subjective: Interval history: Admitted overnight. H&P and labs noted. Examination patient is sedated with propofol and fentanyl. Patient is on ventilator settings of PEEP of 10, FiO2 of 65%, tidal volume of 550, rate of 14, saturating 96%, blood pressure 126/80 mmHg on Levophed of 10, heart rate of 47 to 55 bpm, regular with patient being hypothermic with body temperature of 96 Fahrenheit. Vitals/I&O/Wt Last Vital Signs Temp 98.9 F 01/15/20 04:00 Pulse 127 H 01/15/20 06:25 Resp 19 H 01/15/20 08:20 BP 146/97 01/15/20 06:20 Pulse Ox 94 01/15/20 06:20 01/14/20 01/15/20 01/15/20 22:59 06:59 14:59 Intake Total 37.878 / 37.878 309.417 / 347.295 147.862 / 147.862 Output Total 550 / 550 Balance 37.878 / 37.878 -240.583 / -202.705 147.862 / 147.862 Weight last 48 hrs Weight 79.379 kg Physical Exam Narrative: EXAM NARRATIVE: General: Sedated, not arousable HEENT: PERRLA, pupils bilaterally equal and reactive Chest: Vesicular breath sounds, bilateral coarse Crepitations present all over the lung nino, equal air entry all over the lung nino CVS: S1-S2 regular, early diastolic murmur in aortic area, no tachycardia, no gallops, no rubs Abdomen: Soft, nontender, no organomegaly, bowel sounds present Neuro: Sedated, not arousable, pupils bilaterally equal and reactive Urinary Catheter Management^: Ryan: Cath Placed During This Visit: yes Reason for Continuing Indwelling Catheter: Accurate Measurement of Urinary Output in Critically Ill Patients Urinary Catheter Date of Insertion: 01/14/20 Urinary Catheter Time of Insertion: 20:41 Data : 01/15/20 02:30 01/15/20 02:30 Micro: Microbiology 01/14/20 23:20 Legionella Urinary Antigen - Final Urine Catheterized 01/14/20 23:20 Bacterial Antigens - Final Urine,Clean Catch 01/14/20 20:15 Gram Stain - Final Sputum - Endotracheal Tube Aspirate 01/14/20 21:01 Blood Culture - Preliminary Blood SPECIMEN COLLECTED 01/14/20 20:04 Blood Culture - Preliminary Blood SPECIMEN COLLECTED A&P Assessment and plan (1) Shock: Status: Acute (2) Sepsis: Status: Acute (3) Hypothermia: Status: Acute (4) Bradycardia: Status: Acute (5) NSTEMI (non-ST elevated myocardial infarction): Status: Acute (6) Acute respiratory failure with hypoxia and hypercapnia: Status: Acute (7) CHF exacerbation: Status: Acute (8) Endotracheally intubated: Status: Acute (9) Community acquired pneumonia: Status: Acute (10) Acute kidney injury superimposed on CKD: Status: Acute (11) S/P PTCA (percutaneous transluminal coronary angioplasty): Status: Acute (12) COPD (chronic obstructive pulmonary disease): Status: Acute (13) CAD (coronary artery disease): Status: Acute Qualifiers: Coronary Disease-Associated Artery/Lesion type: [place] artery [place] vs. transplanted heart: [place] heart Associated angina: angina presence unspecified Qualified Code(s): I25.10 - Atherosclerotic heart disease of [place] coronary artery without angina pectoris (14) Ischemic cardiomyopathy: Status: Acute (15) Bilateral pleural effusion: Status: Acute Additional A&P Information 71-year-old gentleman past medical history of CAD, EF 40 to 50%, hypothyroidism, CKD came in last night with acute shortness of breath and was intubated in the ER. He is neurologically for possible septic shock, COVID-19 rule out. 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 For now continue with propofol and fentanyl. Cardiovascular: Keep mean arterial pressure over 65 mmHg. Continue with aspirin, Plavix, statin. EKG, troponin trends with delta of more than 180 in 6 hours consistent with NSTEMI. Cardiology consulted. Continue with heparin drip. Unfortunately given the fact that patient is hemodynamically unstable with possible COVID-19 patient is unstable for cardiac catheterization at present. Continue with Levophed. Will titrate accordingly. Hold off on Lasix for now given borderline blood pressures, septic shock. Bradycardia: Most likely because of hypothermia: We will start patient on dopamine. Cheetah assessment to figure out the fluid balance. For now we will bolus patient with 2 L IV fluids. After that most likely will start on normal saline 200 cc/h. Respiratory: ABG today morning shows a pH of 7.3 with a PCO2 of 34.9, with a PO2 of 133 with a vent setting of rate of 14, FiO2 of 65%, tidal volume of 550, PEEP of 10. We will try to come down on the PEEP keeping saturation over 92% because of borderline blood pressures. No signs of ARDS at present. Tahir Ayala for now as patient is COVID-19 rule out. Infectious: COVID-19 has been sent. Patient is on vancomycin and Zosyn. Will continue at renal dose. We will follow blood cultures, sputum cultures. Stat urinalysis and urine culture. Repeat lactate, LDH, CRP, ferritin, ESR as follow-up for possible COVID-19. Patient is hypothermic. Bear hugger. Renal: Baseline creatinine 1.3-1.5. 1.9 today. Most likely because of shock. IV fluids as above. Patient is in metabolic acidosis at present. Without anion gap. Most likely because of shock and elevated creatinine. We will continue to monitor. GI: Keep n.p.o. AST/ALT on admission elevated. Most likely because of shock liver. We will repeat liver panel in morning's lab. Protonix IV. Endocrine: Continue levothyroxine at home dose through NG tube. Social: Tried calling but not able to get in touch. Will try again later in the day. Patient is full code. Patient is severely ill with guarded prognosis. N.p.o. Heparin drip. Full code. Attestations Medical Necessity Statement*: Shock, acute hypoxic respiratory failure Critical Care Time: Heparin drip, Levophed, dopamine drip, ventilator settings, sedation Critical Care Time (min): 80 Coding Level of Care Code Acute Chief Recordist for [facility] Diagnoses Shock R57.9 Sepsis A41.9 Hypothermia T68.XXXA Bradycardia R00.1 NSTEMI (non-ST elevated myocardial infarction) I21.4 Acute respiratory failure with hypoxia and hypercapnia J96.01; J96.02 CHF exacerbation I50.9 Endotracheally intubated Z97.8 Community acquired pneumonia J18.9 Acute kidney injury superimposed on CKD N17.9; N18.9 S/P PTCA (percutaneous transluminal coronary angioplasty) Z98.61 COPD (chronic obstructive pulmonary disease) J44.9 CAD (coronary artery disease) I25.10 Coronary Disease-Associated Artery/Lesion type: [place] artery [place] vs. transplanted heart: [place] heart Associated angina: angina presence unspecified Ischemic cardiomyopathy I25.5 Bilateral pleural effusion J90
[2020-01-15] MEDS: sodium chloride 0.9% 1,000 ML 999 ML IV ×2 (11:23→12:30)
[2020-01-15 11:28] LABS: Absolute Segmented Neutrophil 13.7 10/cmm (1.6-7.1); Band Neutrophils Absolute 1.1 10^3/cmm (0.0-1.2); Lymphocytes 3 %; Segmented Neutrophils 90 %; Total Cells Counted 100 (0-100)
[2020-01-15 11:34] LABS: Absolute Neutrophil 14.7 10^3/cmm (1.4-6.5); Burr Cells 1+; Platelet Estimate Normal (Normal)
[2020-01-15 11:56] LABS: Erythrocyte Sedimentation Rate 53 mm/hr (0-10)
[2020-01-15 12:00] LABS: C Reactive Protein 131.4 mg/L (0.0-4.9); Iron 30 ug/dL (59-158); Lactate Dehydrogenase 397 U/L (135-225); Percent Saturation 22.5 % (20-50); Total Iron Binding Capacity 133 mcg/dl; Unsaturated Iron Binding 103 ug/dL (112-347)
[2020-01-15 12:04] LABS: Urine Appearance SL Hazy (CLEAR); Urine Color Yellow (Yellow); pH Urine 5 (5-7)
[2020-01-15 12:08] LABS: Bacteria Urine 2+; Bilirubin Urine Neg (NEGATIVE); Blood Urine 2+ (Negative); Glucose Urine UA Norm (Normal); Ketones Urine Negative (Negative); Leukocyte Esterase Urine 1+ (Negative); Nitrate Urine Negative (Negative); Protein Urine Trace (Negative); Urobilinogen Urine Norm (Negative); WBC Urine 25-40 /hpf (0-5)
[2020-01-15 12:09] LABS: Add Urine Culture? Yes
[2020-01-15 12:12] LABS: Partial Thromboplastin Time 99.3 SECONDS (23.9-36.7)
[2020-01-15 12:22] LABS: Alanine Aminotransferase 173 U/L (0-41); Albumin Level 3.2 g/dL (3.5-5.2); Alkaline Phosphatase 92 IU/L (40-130); Aspartate Amino Transferase 270 U/L (0-40); Globulin 2.3 g/dL (1.3-4.6); Total Bilirubin 0.9 mg/dL (0.15-1.2); Total Protein 5.5 g/dL (6.6-8.7)
[2020-01-15 12:35] LABS: Ferritin 1325 ng/mL (30-400)
--- NOTE | 2020-01-15 15:03 | PC.NURSE ---
PT TRANSFERRED TO [facility] VIA [facility]; REPORT GIVEN TO VEL AT [facility] AT [phone]; FACE TO FACE REPORT GIVEN TO COM WRITER WITH [facility]; PT DEPARTED FROM ICU AT 1350; FIVE IV PUMPS SENT WITH [facility] FOR DRIP TITRATION;
--- NOTE | 2020-01-15 15:21 | PM.TDS ---
Transfer Summary Providers Date of Admission: 01/14/20 20:31 Date of Discharge: 01/15/20 Attending Provider at Admission: Francisco Oropeza MD Attending Provider at Transfer: Remi Huffman MD Primary Care Provider: Gregorio Cunningham DO Anticipated Date of Transfer: Anticipated date of transfer: 01/15/20 Receiving Facility & Provider: Receiving Provider: [] Receiving facility: [] Diagnoses at Discharge Discharge Diagnosis (1) Shock: Status: Acute (2) Sepsis: Status: Acute (3) Hypothermia: Status: Acute (4) Bradycardia: Status: Acute (5) NSTEMI (non-ST elevated myocardial infarction): Status: Acute (6) Acute respiratory failure with hypoxia and hypercapnia: Status: Acute (7) CHF exacerbation: Status: Acute (8) Endotracheally intubated: Status: Acute (9) Community acquired pneumonia: Status: Acute (10) Acute kidney injury superimposed on CKD: Status: Acute (11) S/P PTCA (percutaneous transluminal coronary angioplasty): Status: Acute Problem details: August 2019 (12) COPD (chronic obstructive pulmonary disease): Status: Acute (13) CAD (coronary artery disease): Status: Acute Qualifiers: Coronary Disease-Associated Artery/Lesion type: [place] artery [place] vs. transplanted heart: [place] heart Associated angina: angina presence unspecified Qualified Code(s): I25.10 - Atherosclerotic heart disease of [place] coronary artery without angina pectoris (14) Ischemic cardiomyopathy: Status: Acute (15) Bilateral pleural effusion: Status: Acute Reason for Visit Reason for Visit: SOB Hospital Course Discharge Summary: Juarez Delgado is a 74 year old male who carries history of established coronary disease, status post coronary angiogram 08/26/2019 cardiac right radial catheterization revealed normal left main, occlusion of left anterior descending at the origin which is chronic proximal systolic stenosis at first obtuse marginal, second obtuse marginal normal, patent stent, RCA dominant with 90% midportion stenosis status post new stent, EF 45 to 50%, grade 1 diastolic dysfunction,. He also carries history of hypothyroidism, hypertension, dyslipidemia. Patient was seen at the urgent care yesterday for COPD exacerbation for which he was prescribed prednisone and antibiotics. Today he came back for worsening shortness of breath. Family stating that he is considerably active for his age, he works at the [employer]. For last couple of days he has been working outside. Today around noon when he was in his recliner he certainly got short of breath, he asked his to take him to the hospital right away. On arrival to the ER he was taking shallow breaths, extremely tachypneic, hypoxic 50% on room air, he was intubated by Dr. Brown. Chest x-ray revealed pulmonary edema. At the time of my evaluation blood gas was taken which showed respiratory acidosis. Blood work revealed a hemoglobin of 12 with a white count of 15.2 with a d-dimer of 4.46, ABG showing postintubation a pH of 7.3, PO2 of 133, PCO2 of 34 on vent setting of mechanical rate of 14, FiO2 of 65%, tidal volume 11/15/1948, PEEP of 8, CMP showing a sodium of 134, CO2 of 18, anion gap of 18, creatinine of 1.9 with baseline of 1.4, lactate of 2.3, ferritin of 1325, deranged LFT, troponin rising to 261 and 6 hours with a delta of 150, CRP of 131, proBNP of 4726, procal- 3.9, LDH-514, ESR-53. Patient was requiring Levophed to maintain his blood pressures. He was hypothermic with temperature and 95 Fahrenheit which was treated with bear hugger. Patient was bradycardic which was treated with a dopamine infusion as well. As patient extensive history of CAD along with recent stenting with elevated d-dimer and extensive delta he was started on heparin drip. It is thought patient is in shock because of a combination of sepsis and cardiogenic. Patient's blood culture, sputum culture have been sent out and pending. COVID-19 was sent and is pending as well. Chest x-ray was done which showed bilateral bronchial inflammation/edema. Critically ill and possibly COVID-19 positive in view of time it was thought to be patient to be transferred to [facility] ICU for further care. Patient was discussed with Dr. Elliot becker at [facility] ICU who he graciously accepted. Because of him being critically ill patient is been Air-Evac. All the above has been discussed with patient's Ms. Haile. For further details please look at my progress note from today. Physical Exam Narrative: EXAM NARRATIVE: General: Sedated, not arousable HEENT: PERRLA, pupils bilaterally equal and reactive Chest: Vesicular breath sounds, bilateral coarse Crepitations present all over the lung nnio, equal air entry all over the lung nino CVS: S1-S2 regular, early diastolic murmur in aortic area, no tachycardia, no gallops, no rubs Abdomen: Soft, nontender, no organomegaly, bowel sounds present Neuro: Sedated, not arousable, pupils bilaterally equal and reactive Urinary Catheter Management^: Ryan: Cath Placed During This Visit: yes Reason for Continuing Indwelling Catheter: Accurate Measurement of Urinary Output in Critically Ill Patients Urinary Catheter Date of Insertion: 01/14/20 Urinary Catheter Time of Insertion: 20:41 TS Data Data Completed and Pending: Completed Studies During Hospitalization Category Date Time Status XR chest 1V tobias ble [id number] Stat Exams 01/14/20 20:21 Completed XR chest 1V tobias ble [id number] Stat Exams 01/15/20 05:57 Completed XR chest 1V tobias ble [id number] Urgent Exams 01/14/20 19:30 Completed Pending at discharge Category Date Time Status CT chest wo con 7 1250 Urgent Cat Scan 01/15/20 10:38 Ordered Arterial Blood Ga s W/Coox Stat Lab 01/14/20 20:08 Results Arterial Blood Ga s W/O Coox Routine Lab 01/14/20 22:58 Ordered Blood Culture Sta t Lab 01/14/20 21:01 Results Coronavirus Lab T est PTC Stat Lab 01/14/20 23:28 Received Liver Panel Routi ne Lab 01/15/20 02:30 Results Sputum Culture an d Gram Stain Stat Lab 01/14/20 20:15 Results Sputum Culture an d Gram Stain Stat Lab 01/14/20 23:26 Ordered Urine Culture Sta t Lab 01/15/20 11:16 Received Labs from last 24 hours 01/15/20 01/15/20 01/15/20 11:16 11:16 06:00 WBC RBC Hgb Hct MCV MCH MCHC RDW Plt Count MPV Neut % (Auto) Lymph % (Auto) [place] % (Auto) Eos % (Auto) Baso % (Auto) Neut # (Auto) Lymph # (Auto) [place] # (Auto) Eos # (Auto) Baso # (Auto) Nucleated RBC % (a uto) Total Counted Absolute Neutrophi ls Segmented Neutroph ils Abs Segm Neuts (Ma n) Band Neutrophils Abs Band Neuts (Ma n) Lymphocytes (Man[place] l) Nucleated RBCs # Platelet Estimate Keli Cells ESR PT INR APTT 99.3 H 87.3 H D-Dimer 4.46 H Specimen Type Sample Site ABG pH ABG pCO2 ABG pO2 ABG HCO3 ABG Base Excess Jae Test Hematocrit Hgb O2 Saturation Carboxyhemoglobin Methemoglobin Total Hemoglobin Respiration Rate O2 Delivery Device Mechanical Rate FiO2 Tidal Volume PEEP Panel Machine Setter ID Sodium Potassium Chloride Carbon Dioxide Anion Gap BUN Creatinine Glucose POC Glucose Calculated Osmolal ity Lactic Acid Lactic Acid (Sepsi s) Calcium Phosphorus Iron TIBC % Saturation Unsat Iron Binding Ferritin Total Bilirubin Direct Bilirubin AST ALT Alkaline Phosphata se Lactate Dehydrogen ase Troponin I 6 Hour Troponin I Hi Sens Del Troponin T Baselin e Troponin T 120 Min [place] Troponin T C-Reactive Protein NT-Pro-B Natriuret Pep Total Protein Albumin Globulin Procalcitonin TSH Urine Color Yellow Urine Appearance Sl hazy Urine pH 5 Ur Specific Gravit y 1.020 Urine Protein Trace Urine Glucose (UA) Norm Urine Ketones Negative Urine Blood 2+ H Urine Nitrate Negative Urine Bilirubin Neg Urine Urobilinogen Norm Ur Leukocyte María ase 1+ H Urine RBC 5-10 H Urine WBC 25-40 H Ur Squamous Epith Cells None Urine Bacteria 2+ H Fine Granular Cast s 5-10 H 01/15/20 01/15/20 01/15/20 05:48 05:24 02:30 WBC RBC Hgb Hct MCV MCH MCHC RDW Plt Count MPV Neut % (Auto) Lymph % (Auto) [place] % (Auto) Eos % (Auto) Baso % (Auto) Neut # (Auto) Lymph # (Auto) [place] # (Auto) Eos # (Auto) Baso # (Auto) Nucleated RBC % (a uto) Total Counted Absolute Neutrophi ls Segmented Neutroph ils Abs Segm Neuts (Ma n) Band Neutrophils Abs Band Neuts (Ma n) Lymphocytes (Man[place] l) Nucleated RBCs # Platelet Estimate Keli Cells ESR PT INR APTT D-Dimer Specimen Type Arterial Sample Site Radial, right ABG pH 7.30 L ABG pCO2 34.9 L ABG pO2 133.0 H ABG HCO3 17.3 L ABG Base Excess -8.2 L Jae Test Pos Hematocrit 37.4 L Hgb O2 Saturation 97.8 Carboxyhemoglobin 0.3 L Methemoglobin 1.0 Total Hemoglobin 12.2 L Respiration Rate 14.0 O2 Delivery Device Vent Mechanical Rate 14.0 FiO2 65.0 Tidal Volume 0.55 PEEP 8.0 Panel Machine Setter ID hinja Sodium Potassium Chloride Carbon Dioxide Anion Gap BUN Creatinine Glucose POC Glucose 194 Calculated Osmolal ity Lactic Acid Lactic Acid (Sepsi s) Calcium Phosphorus Iron TIBC % Saturation Unsat Iron Binding Ferritin Total Bilirubin 0.9 Direct Bilirubin Pending AST 270 H ALT 173 H Alkaline Phosphata se 92 Lactate Dehydrogen ase Troponin I 6 Hour Troponin I Hi Sens Del Troponin T Baselin e Troponin T 120 Min [place] Troponin T C-Reactive Protein NT-Pro-B Natriuret Pep Total Protein 5.5 L Albumin 3.2 L Globulin 2.3 Procalcitonin TSH Urine Color Urine Appearance Urine pH Ur Specific Gravit y Urine Protein Urine Glucose (UA) Urine Ketones Urine Blood Urine Nitrate Urine Bilirubin Urine Urobilinogen Ur Leukocyte María ase Urine RBC Urine WBC Ur Squamous Epith Cells Urine Bacteria Fine Granular Cast s 01/15/20 01/15/20 01/15/20 02:30 02:30 02:30 WBC RBC Hgb Hct MCV MCH MCHC RDW Plt Count MPV Neut % (Auto) Lymph % (Auto) [place] % (Auto) Eos % (Auto) Baso % (Auto) Neut # (Auto) Lymph # (Auto) [place] # (Auto) Eos # (Auto) Baso # (Auto) Nucleated RBC % (a uto) Total Counted Absolute Neutrophi ls Segmented Neutroph ils Abs Segm Neuts (Ma n) Band Neutrophils Abs Band Neuts (Ma n) Lymphocytes (Man[place] l) Nucleated RBCs # Platelet Estimate Keli Cells ESR 53 H PT INR APTT D-Dimer Specimen Type Sample Site ABG pH ABG pCO2 ABG pO2 ABG HCO3 ABG Base Excess Jae Test Hematocrit Hgb O2 Saturation Carboxyhemoglobin Methemoglobin Total Hemoglobin Respiration Rate O2 Delivery Device Mechanical Rate FiO2 Tidal Volume PEEP Panel Machine Setter ID Sodium 134 L Potassium 4.7 Chloride 103 Carbon Dioxide 18 L Anion Gap 17.7 BUN 27 H Creatinine 1.9 H Glucose 201 H POC Glucose Calculated Osmolal ity 281 L Lactic Acid Lactic Acid (Sepsi s) Calcium 7.5 L Phosphorus Iron 30 L TIBC 133 % Saturation 22.5 Unsat Iron Binding 103 L Ferritin 1325 H Total Bilirubin Direct Bilirubin AST ALT Alkaline Phosphata se Lactate Dehydrogen ase 397 H Troponin I 6 Hour Troponin I Hi Sens Del Troponin T Baselin e Troponin T 120 Min [place] Troponin T C-Reactive Protein 131.4 H NT-Pro-B Natriuret Pep Total Protein Albumin Globulin Procalcitonin 3.90 H TSH Urine Color Urine Appearance Urine pH Ur Specific Gravit y Urine Protein Urine Glucose (UA) Urine Ketones Urine Blood Urine Nitrate Urine Bilirubin Urine Urobilinogen Ur Leukocyte María ase Urine RBC Urine WBC Ur Squamous Epith Cells Urine Bacteria Fine Granular Cast s 01/15/20 01/15/20 01/14/20 02:30 02:30 23:27 WBC 15.2 H RBC 3.91 L Hgb 12.2 Hct 37.5 L MCV 95.9 H MCH 31.2 MCHC 32.5 RDW 13.2 Plt Count 208 MPV 12.7 H Neut % (Auto) 93.3 Lymph % (Auto) 3.8 [place] % (Auto) 2.2 Eos % (Auto) 0.0 Baso % (Auto) 0.1 Neut # (Auto) 14.2 H Lymph # (Auto) 0.6 L [place] # (Auto) 0.3 Eos # (Auto) 0.0 Baso # (Auto) 0.0 Nucleated RBC % (a uto) 0 Total Counted 100 Absolute Neutrophi ls 14.7 H Segmented Neutroph ils 90 Abs Segm Neuts (Ma n) 13.7 H Band Neutrophils 7.0 Abs Band Neuts (Ma n) 1.1 Lymphocytes (Man[place] l) 3 Nucleated RBCs # 0.0 Platelet Estimate Normal [place] Cells 1+ H ESR PT INR APTT D-Dimer Specimen Type Sample Site ABG pH ABG pCO2 ABG pO2 ABG HCO3 ABG Base Excess Jae Test Hematocrit Hgb O2 Saturation Carboxyhemoglobin Methemoglobin Total Hemoglobin Respiration Rate O2 Delivery Device Mechanical Rate FiO2 Tidal Volume PEEP Panel Machine Setter ID Sodium Potassium Chloride Carbon Dioxide Anion Gap BUN Creatinine Glucose POC Glucose 154 Calculated Osmolal ity Lactic Acid Lactic Acid (Sepsi s) Calcium Phosphorus Iron TIBC % Saturation Unsat Iron Binding Ferritin Total Bilirubin Direct Bilirubin AST ALT Alkaline Phosphata se Lactate Dehydrogen ase Troponin I 6 Hour 261.7 H Troponin I Hi Sens Del 149.7 H* Troponin T Baselin e Troponin T 120 Min [place] Troponin T C-Reactive Protein NT-Pro-B Natriuret Pep Total Protein Albumin Globulin Procalcitonin TSH Urine Color Urine Appearance Urine pH Ur Specific Gravit y Urine Protein Urine Glucose (UA) Urine Ketones Urine Blood Urine Nitrate Urine Bilirubin Urine Urobilinogen Ur Leukocyte María ase Urine RBC Urine WBC Ur Squamous Epith Cells Urine Bacteria Fine Granular Cast s 01/14/20 01/14/20 01/14/20 22:24 21:01 21:01 WBC RBC Hgb Hct MCV MCH MCHC RDW Plt Count MPV Neut % (Auto) Lymph % (Auto) [place] % (Auto) Eos % (Auto) Baso % (Auto) Neut # (Auto) Lymph # (Auto) [place] # (Auto) Eos # (Auto) Baso # (Auto) Nucleated RBC % (a uto) Total Counted Absolute Neutrophi ls Segmented Neutroph ils Abs Segm Neuts (Ma n) Band Neutrophils Abs Band Neuts (Ma n) Lymphocytes (Man[place] l) Nucleated RBCs # Platelet Estimate Keli Cells ESR PT INR APTT D-Dimer Specimen Type Arterial Sample Site Radial, right ABG pH 7.23 L ABG pCO2 47.5 H ABG pO2 84.7 ABG HCO3 19.8 L ABG Base Excess -7.9 L Jae Test Pos Hematocrit 44.8 Hgb O2 Saturation Carboxyhemoglobin Methemoglobin Total Hemoglobin Respiration Rate 28.0 O2 Delivery Device Vent Mechanical Rate 14.0 FiO2 80.0 Tidal Volume 0.55 PEEP 10.0 Panel Machine Setter ID hinja Sodium Potassium Chloride Carbon Dioxide Anion Gap BUN Creatinine Glucose POC Glucose Calculated Osmolal ity Lactic Acid Lactic Acid (Sepsi s) 0.2 L Calcium Phosphorus Iron TIBC % Saturation Unsat Iron Binding Ferritin Total Bilirubin Direct Bilirubin AST ALT Alkaline Phosphata se Lactate Dehydrogen ase Troponin I 6 Hour Troponin I Hi Sens Del Troponin T Baselin e Troponin T 120 Min [place] 149.5 H Delta Troponin T 37.5 H* C-Reactive Protein NT-Pro-B Natriuret Pep Total Protein Albumin Globulin Procalcitonin TSH Urine Color Urine Appearance Urine pH Ur Specific Gravit y Urine Protein Urine Glucose (UA) Urine Ketones Urine Blood Urine Nitrate Urine Bilirubin Urine Urobilinogen Ur Leukocyte María ase Urine RBC Urine WBC Ur Squamous Epith Cells Urine Bacteria Fine Granular Cast s 01/14/20 01/14/20 01/14/20 20:08 20:04 20:04 WBC RBC Hgb Hct MCV MCH MCHC RDW Plt Count MPV Neut % (Auto) Lymph % (Auto) [place] % (Auto) Eos % (Auto) Baso % (Auto) Neut # (Auto) Lymph # (Auto) [place] # (Auto) Eos # (Auto) Baso # (Auto) Nucleated RBC % (a uto) Total Counted Absolute Neutrophi ls Segmented Neutroph ils Abs Segm Neuts (Ma n) Band Neutrophils Abs Band Neuts (Ma n) Lymphocytes (Man[place] l) Nucleated RBCs # Platelet Estimate [place] Cells ESR PT INR APTT D-Dimer Specimen Type Arterial Sample Site Brachial, right ABG pH 7.14 L* ABG pCO2 55.1 H ABG pO2 148.0 H ABG HCO3 18.6 L ABG Base Excess -10.8 L Jae Test N/a Hematocrit 41.2 L Hgb O2 Saturation 98.7 Carboxyhemoglobin 1.2 Methemoglobin Pending Total Hemoglobin 13.5 L Respiration Rate 14.0 O2 Delivery Device Vent Mechanical Rate 14.0 FiO2 0.1 Tidal Volume 0.55 PEEP 10.0 Panel Machine Setter ID [email or web address] Sodium Potassium Chloride Carbon Dioxide Anion Gap BUN Creatinine Glucose POC Glucose Calculated Osmolal ity Lactic Acid Lactic Acid (Sepsi s) Calcium Phosphorus 4.6 H Iron TIBC % Saturation Unsat Iron Binding Ferritin Total Bilirubin Direct Bilirubin AST ALT Alkaline Phosphata se Lactate Dehydrogen ase 514 H Troponin I 6 Hour Troponin I Hi Sens Del Troponin T Baselin e Troponin T 120 Min [place] Troponin T C-Reactive Protein 165.8 H NT-Pro-B Natriuret Pep Total Protein Albumin Globulin Procalcitonin 0.39 TSH 1.55 Urine Color Urine Appearance Urine pH Ur Specific Gravit y Urine Protein Urine Glucose (UA) Urine Ketones Urine Blood Urine Nitrate Urine Bilirubin Urine Urobilinogen Ur Leukocyte María ase Urine RBC Urine WBC Ur Squamous Epith Cells Urine Bacteria Fine Granular Cast s 01/14/20 01/14/20 01/14/20 20:04 20:04 20:04 WBC RBC Hgb Hct MCV MCH MCHC RDW Plt Count MPV Neut % (Auto) Lymph % (Auto) [place] % (Auto) Eos % (Auto) Baso % (Auto) Neut # (Auto) Lymph # (Auto) [place] # (Auto) Eos # (Auto) Baso # (Auto) Nucleated RBC % (a uto) Total Counted Absolute Neutrophi ls Segmented Neutroph ils Abs Segm Neuts (Ma n) Band Neutrophils Abs Band Neuts (Ma n) Lymphocytes (Man[place] l) Nucleated RBCs # Platelet Estimate Keli Cells ESR PT INR APTT D-Dimer Specimen Type Sample Site ABG pH ABG pCO2 ABG pO2 ABG HCO3 ABG Base Excess Jae Test Hematocrit Hgb O2 Saturation Carboxyhemoglobin Methemoglobin Total Hemoglobin Respiration Rate O2 Delivery Device Mechanical Rate FiO2 Tidal Volume PEEP Panel Machine Setter ID Sodium 131 L Potassium 5.0 Chloride 99 Carbon Dioxide 18 L Anion Gap 19.0 BUN 26 H Creatinine 1.7 H Glucose 220 H POC Glucose Calculated Osmolal ity 276 L Lactic Acid 2.3 H Lactic Acid (Sepsi s) Calcium 8.2 L Phosphorus Iron TIBC % Saturation Unsat Iron Binding Ferritin Total Bilirubin 0.6 Direct Bilirubin AST 306 H ALT 189 H Alkaline Phosphata se 99 Lactate Dehydrogen ase Troponin I 6 Hour Troponin I Hi Sens Del Troponin T Baselin e 112 H* Troponin T 120 Min [place] Troponin T C-Reactive Protein NT-Pro-B Natriuret Pep 4726 H Total Protein 6.8 Albumin 3.4 L Globulin 3.4 Procalcitonin TSH Urine Color Urine Appearance Urine pH Ur Specific Gravit y Urine Protein Urine Glucose (UA) Urine Ketones Urine Blood Urine Nitrate Urine Bilirubin Urine Urobilinogen Ur Leukocyte María ase Urine RBC Urine WBC Ur Squamous Epith Cells Urine Bacteria Fine Granular Cast s 01/14/20 01/14/20 20:04 20:04 WBC 14.2 H RBC 4.32 Hgb 13.5 Hct 41.8 L MCV 96.8 H MCH 31.3 MCHC 32.3 RDW 13.1 Plt Count 204 MPV 12.3 H Neut % (Auto) 82.7 Lymph % (Auto) 12.4 [place] % (Auto) 4.2 Eos % (Auto) 0.1 Baso % (Auto) 0.1 Neut # (Auto) 11.7 H Lymph # (Auto) 1.8 [place] # (Auto) 0.6 Eos # (Auto) 0.0 Baso # (Auto) 0.0 Nucleated RBC % (a uto) 0 Total Counted Absolute Neutrophi ls Segmented Neutroph ils Abs Segm Neuts (Ma n) Band Neutrophils Abs Band Neuts (Ma n) Lymphocytes (Man[place] l) Nucleated RBCs # 0.0 Platelet Estimate [place] Cells ESR PT 13.70 H INR 1.02 APTT D-Dimer Specimen Type Sample Site ABG pH ABG pCO2 ABG pO2 ABG HCO3 ABG Base Excess Jae Test Hematocrit Hgb O2 Saturation Carboxyhemoglobin Methemoglobin Total Hemoglobin Respiration Rate O2 Delivery Device Mechanical Rate FiO2 Tidal Volume PEEP Panel Machine Setter ID Sodium Potassium Chloride Carbon Dioxide Anion Gap BUN Creatinine Glucose POC Glucose Calculated Osmolal ity Lactic Acid Lactic Acid (Sepsi s) Calcium Phosphorus Iron TIBC % Saturation Unsat Iron Binding Ferritin Total Bilirubin Direct Bilirubin AST ALT Alkaline Phosphata se Lactate Dehydrogen ase Troponin I 6 Hour Troponin I Hi Sens Del Troponin T Baselin e Troponin T 120 Min [place] Troponin T C-Reactive Protein NT-Pro-B Natriuret Pep Total Protein Albumin Globulin Procalcitonin TSH Urine Color Urine Appearance Urine pH Ur Specific Gravit y Urine Protein Urine Glucose (UA) Urine Ketones Urine Blood Urine Nitrate Urine Bilirubin Urine Urobilinogen Ur Leukocyte María ase Urine RBC Urine WBC Ur Squamous Epith Cells Urine Bacteria Fine Granular Cast s Vitals: Last Vital Signs Temp 96.8 F L 01/15/20 13:30 Pulse 46 L 01/15/20 13:30 Resp 18 01/15/20 13:30 BP 98/51 01/15/20 13:30 Pulse Ox 94 01/15/20 13:30 TS Medications Medications Home Medications aspirin 81 mg PO DAILY 08/25/19 [History Confirmed 11/15/19] atorvastatin 40 mg PO DAILY 08/25/19 [History Confirmed 11/15/19] carvedilol 3.125 mg PO BID 08/25/19 [History Confirmed 11/15/19] levothyroxine [Synthroid] 75 mcg PO DAILY 08/25/19 [History Confirmed 11/15/19] losartan 50 mg tablet 50 mg PO DAILY #90 tab 10/06/19 [Rx Confirmed 11/15/19] spironolactone 25 mg tablet 25 mg PO DAILY #90 tab 11/05/19 [Rx Confirmed 11/15/19] clopidogrel 75 mg tablet 75 mg PO DAILY 90 Days #90 tab 11/15/19 [Rx Confirmed 11/15/19] Discharge Plan Discharge Patient Disposition: Xfer Critical Access Hosp Condition: Stable Prescriptions: No Action clopidogrel 75 mg tablet 75 mg PO DAILY 90 Days Qty: 90 RF: 3 losartan 50 mg tablet 50 mg PO DAILY Qty: 90 RF: 3 spironolactone 25 mg tablet 25 mg PO DAILY Qty: 90 RF: 3 atorvastatin 40 mg Tablet 40 mg PO DAILY RF: 0 aspirin 81 mg Tablet,Delayed Release (Dr/Ec) 81 mg PO DAILY RF: 0 carvedilol 3.125 mg Tablet 3.125 mg PO BID RF: 0 levothyroxine [Synthroid] 75 mcg Tablet 75 mcg PO DAILY RF: 0 Discharge Orders: Transfer Out of Facility (Order); Ordered 01/15/20 Ordered By: Remi Huffman Discharge Date/Time: 01/15/20 14:00 Transfer Attestations Time Spent in Transfer Care*: critical care time (Managing vent settings, Levophed, dopamine, heparin, sedation) Critical Care Time (min): 80 Specific Discharge Activities: Specific discharge activities: educating and/or supporting family/caregiver, discussing with human services case manager/social workers/dc planners, documenting/other paperwork and evaluating patient/reviewing data Status at Transfer: Overall status at transfer: patient is not back to baseline Quality Metrics Clinical Quality Measures: During this hospital stay, did patient experience: None Coding Level of Care Code Acute Junk Removal Specialist for Chg Fwd Diagnoses Shock R57.9 Sepsis A41.9 Hypothermia T68.XXXA Bradycardia R00.1 NSTEMI (non-ST elevated myocardial infarction) I21.4 Acute respiratory failure with hypoxia and hypercapnia J96.01; J96.02 CHF exacerbation I50.9 Endotracheally intubated Z97.8 Community acquired pneumonia J18.9 Acute kidney injury superimposed on CKD N17.9; N18.9 S/P PTCA (percutaneous transluminal coronary angioplasty) Z98.61 COPD (chronic obstructive pulmonary disease) J44.9 CAD (coronary artery disease) I25.10 Coronary Disease-Associated Artery/Lesion type: [place] artery [place] vs. transplanted heart: [place] heart Associated angina: angina presence unspecified Ischemic cardiomyopathy I25.5 Bilateral pleural effusion J90
[2020-01-15] MEDS: propofol 1,000 MG/100 ML INJ 9.5 MG IV (15:22)
[2020-01-15 17:33] LABS: Coronavirus Lab Test PTC SEE REPORT
--- NOTE | 2020-01-15 19:19 | PC.NURSE ---
1914 - [facility] RETURNED PROPOFOL BOTTLE UNUSED...GAVE BOTTLE TO KELVIN MOSLEY RN TO RETURN TO PHARMACY FOR CREDIT ON PATIENT
--- NOTE | 2020-01-17 15:33 | PC.RESP ---
Smoking Cessation and Pulmonary Rehab information sent to patient.
== END 2020-01-15 14:00 | disposition short-term general hospital (02) | DRG 871 ==
LOC: ER 19:44 → ICU 20:56
PROVIDERS: Emergency Medicine; Admitting Provider Internal Medicine; Emergency Provider Emergency Medicine; PCP Electrodiagnostic Medicine; Visit Provider Student in an Organized Health Care Education/Training Program
DX: A41.9 Sepsis, unspecified organism (principal); J96.02 Acute respiratory failure with hypercapnia; J96.01 Acute respiratory failure with hypoxia; I21.4 Non-ST elevation (NSTEMI) myocardial infarction; J18.9 Pneumonia, unspecified organism; R57.9 Shock, unspecified; N17.9 Acute kidney failure, unspecified; I13.0 Hypertensive heart and chronic kidney disease with heart failure and stage 1 through stage 4 chronic kidney disease, or unspecified chronic kidney disease; J44.1 Chronic obstructive pulmonary disease with (acute) exacerbation; J44.9 Chronic obstructive pulmonary disease, unspecified; I25.10 Atherosclerotic heart disease of native coronary artery without angina pectoris; I25.5 Ischemic cardiomyopathy; E78.5 Hyperlipidemia, unspecified; E03.9 Hypothyroidism, unspecified; Z79.82 Long term (current) use of aspirin; Z79.02 Long term (current) use of antithrombotics/antiplatelets; T68.XXXA Hypothermia, initial encounter; R00.1 Bradycardia, unspecified; N18.9 Chronic kidney disease, unspecified; Z85.828 Personal history of other malignant neoplasm of skin; I35.0 Nonrheumatic aortic (valve) stenosis; Z95.5 Presence of coronary angioplasty implant and graft; F17.210 Nicotine dependence, cigarettes, uncomplicated; X31.XXXA Exposure to excessive natural cold, initial encounter
CPT/HCPCS: 12345; 31500; 36415; 36416; 36556; 36592; 36600; 51702; 71045; 80048; 80053; 80076; 81001; 82728; 82803; 82805; 82962; 83540; 83550; 83605; 83615; 83880; 84100; 84145; 84443; 84484; 85007; 85025; 85378; 85610; 85651; 85730; 86140; 86403; 87040; 87070; 87077; 87086; 87186; 87205; 87449; 87635; 87641; 93005; 94002; 94003; 94640; 94660; 94799; 96375; 99284; C9113; J0330; J0610; J1265; J1644; J1940; J2060; J2543; J2704; J2930; J3010; J3370; J3490; J7030; J7040; J7050

== ENCOUNTER 2020-01-28 09:32 | Outpatient (CLI) | payer MEDICARE, SELFPAY ==
--- NOTE | 2020-01-28 | XR_ITS ---
WS: [id number] Chest 2 views, 01/28/2020 Clinical Data: PULMONARY EDEMA Comparison: Portable chest, 01/15/2020. Findings: No nodules, masses or effusions are seen. The heart is normal. The pulmonary vascularity is not increased. No pneumonia or pneumothorax is seen. The aortic arch and descending aorta are minima lly tortuous. There is a slight levoscoliosis of the thoracic spine. There is minimal left basilar at electasis. XR/XR chest 2V* [id number] Impression: Negative chest.
== END 2020-01-28 09:33 | disposition home or self-care (01) ==
LOC: RADWPI 09:38
PROVIDERS: PCP Electrodiagnostic Medicine; Visit Provider Electrodiagnostic Medicine
DX: J81.0 Acute pulmonary edema (principal)
CPT/HCPCS: 71046

== ENCOUNTER 2020-10-11 07:38 | Inpatient (IN) | payer MEDICARE, OTHER, SELFPAY ==
[2020-10-11] VITALS (8 sets, daily range): BP systolic 105–134; BP diastolic 44–53; PULSE 47–64; RESP 17–19; TEMP 36.6–36.7; O2SAT 91–99; BMI 24.9
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
--- NOTE | 2020-10-11 07:50 | XR_ITS ---
WS: [id number] PORTABLE CHEST HISTORY: dyspnea/cough COMPARISON: 01/28/2020 Lungs are hyperinflated. There are a few scattered granulomata. No mass or nodule or pneumonia. No pl eural effusion or pneumothorax. Cardiac size: Normal. Mediastinum/Aorta: Mild atherosclerosis aorta. No osseous abnormality seen. XR/XR chest 1V portable [id number] IMPRESSION: Emphysema. No pneumonia.
[2020-10-11 07:55] LABS: Basophils # 0.1 10^3/uL (0.0-0.1); Basophils % 0.7 %; Eosinophils # 1.1 10^3/uL (0.0-0.8); Hematocrit 35.7 % (42.0-52.0); Hemoglobin 12.2 g/dL (11.7-16.6); Lymphocytes # 1.9 10^3/uL (0.8-4.8); Mean Corpuscular HGB Conc 34.2 g/dL (30.0-36.0); Mean Corpuscular Hemoglobin 31.4 pg (28.0-34.0); Mean Corpuscular Volume 91.8 fL (80-94); Mean Platelet Volume 10.9 fL (7.4-10.4); Monocytes # 0.7 10^3/uL (0.2-0.9); Monocytes % 8.6 %; Neutrophils % 53.3 %; Nucleated Red Blood Cells % 0 %; Platelet Count 260 10^3/cmm (130-400); Red Blood Count 3.89 10^6/uL (4.1-5.3); Red Cell Distribution Width 12.9 % (12.1-15.1); White Blood Count 8.1 10^3/uL (4.0-10.0)
--- NOTE | 2020-10-11 08:12 | ECG_ITS ---
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 Measurements Intervals [place] Rate: 51 P: 38 AR: 217 QRS: -78 QRSD: 173 T: 88 QT: 492 QTc: 453 Interpretive Statements SINUS BRADYCARDIA WITH FIRST DEGREE AV BLOCK WITH OCCASIONAL SUPRAVENTRICULAR PREMATURE COMPLEXES LEFT AXIS DEVIATION [QRS AXIS < -30] RIGHT BUNDLE BRANCH BLOCK [120+ ms QRS DURATION, UPRIGHT V1, 40+ ms S IN I/aVL/V4/V5/V6] POSSIBLE SEPTAL MYOCARDIAL INFARCTION , PROBABLY OLD [30 ms Q WAVE IN V1/V2] Compared to ECG 10/11/2020 07:50:50 Left-axis deviation now present Myocardial infarct finding still present Electronically Signed On 10-11-2020 19:49:17 CDT by Laura Collado M.D. [id number]
[2020-10-11 08:25] LABS: Alanine Aminotransferase 12 U/L (0-41); Albumin Level 4.3 g/dL (3.5-5.2); Alkaline Phosphatase 70 IU/L (40-130); Blood Urea Nitrogen 23 mg/dL (8-23); Calcium 9.1 mg/dL (8.5-10.5); Carbon Dioxide 22 mmol/L (22-29); Chloride 98 mmol/L (98-107); Creatine Phosphokinase 139 U/L (39-308); Globulin 2.9 g/dL (1.3-4.6); Glucose 152 mg/dL (65-115); Osmolality Calculated 281 mOsm/kg (285-295); Sodium 132 mmol/L (136-145); Total Bilirubin 0.6 mg/dL (0.15-1.2); Total Protein 7.2 g/dL (6.6-8.7)
[2020-10-11 08:34] LABS: Anion Gap 16.5 (5-19); Aspartate Amino Transferase 18 U/L (0-40); Potassium 4.5 mmol/L (3.5-5.1)
[2020-10-11 09:06] LABS: Troponin(5th) Baseline 25 ng/L (0-15)
--- NOTE | 2020-10-11 10:12 | ECG_ITS ---
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 Measurements Intervals [place] Rate: 55 P: 57 GA: 218 QRS: -76 QRSD: 172 T: 91 QT: 468 QTc: 451 Interpretive Statements SINUS BRADYCARDIA WITH FIRST DEGREE AV BLOCK RIGHT BUNDLE BRANCH BLOCK [120+ ms QRS DURATION, UPRIGHT V1, 40+ ms S IN I/aVL/V4/V5/V6] POSSIBLE SEPTAL MYOCARDIAL INFARCTION , OF INDETERMINATE AGE [30 ms Q WAVE IN V1/V2] INFERIOR MYOCARDIAL INFARCTION , PROBABLY OLD [40+ ms Q WAVE AND/OR ST/T ABNORMALITY IN II/aVF] Compared to ECG 01/15/2020 10:29:30 First degree AV block now present Right bundle-branch block now present Left-axis deviation no longer present Intraventricular conduction delay no longer present Myocardial infarct finding still present Electronically Signed On 10-11-2020 19:54:53 CDT by Laura Collado M.D. [id number]
[2020-10-11 10:26] LABS: Troponin 5 2HR 30.06 ng/L (0-15); Troponin 5 2HR Delta 5.06 ABS# (0-10)
--- NOTE | 2020-10-11 10:43 | PC.PHAR ---
PT STATES HE TAKES CARE OF HIS OWN MEDICATIONS-PT STATES HE ONLY TAKES THE LASIX PRN
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
--- NOTE | 2020-10-11 12:19 | USCV_ITS ---
Juarez Delgado Age: 74 Gender: M : 1945 Exam Date: 10/11/2020 15:44 Ordering Phys: Perfecto Garcia MD Technologist: Lashell Plascencia [place] [facility] [place]: [place] BP: 115 / 54 HR: 119 Rhythm: Sinus Technical Quality: Adequate MEASUREMENTS (Male / Female) Normal Values 2D ECHO LV Diastolic Diameter PLAX 5.2 cm 4.2 - 5.9 / 3.9 - 5.3 cm LV Systolic Diameter PLAX 4.1 cm IVS Diastolic Thickness 1.6 cm 0.6 - 1.0 / 0.6 - 0.9 cm IVS Systolic Thickness 1.9 cm LVPW Diastolic Thickness 1.5 cm 0.6 - 1.0 / 0.6 - 0.9 cm LVPW Systolic Thickness 2.1 cm RV Chamber Size 4.3 cm LVOT Diameter 2.0 cm LV Ejection Fraction 2D Teich 54.6 % LV Ejection Fraction MOD 2C 32.1 % LV Ejection Fraction 2C AL 35.6 % LA Diameter 3.1 cm LA Width 4.4 cm LA Height 5.5 cm RA Width 4.7 cm RA Height 4.5 cm Aorta at Sinotubular Diameter 2.9 cm M-MODE LV Diastolic Diameter MM 6.3 cm 4.2 - 5.9 / 3.9 - 5.3 cm LV Systolic Diameter MM 4.2 cm LV Ejection Fraction MM Teich 62.7 % IVS Diastolic Thickness MM 1.8 cm 0.6 - 1.0 / 0.6 - 0.9 cm IVS Systolic Thickness MM 2.0 cm LVPW Diastolic Thickness MM 1.7 cm 0.6 - 1.0 / 0.6 - 0.9 cm LVPW Systolic Thickness MM 1.7 cm Aortic Annulus Diameter 2.6 cm LA Ao Ratio MM 1.3 MV E Point Septal Separation 2.1 cm DOPPLER AV Peak Velocity 241.0 cm/s LVOT Peak Velocity 128.0 cm/s AV Area Cont Eq vti 1.6 cm squared AV Area Cont Eq pk 1.7 cm squared MV Area PHT 4.4 cm squared Mitral E to A Ratio 0.7 MV E' Velocity 36.5 cm/s Mitral E to MV E' Ratio 8.0 Mitral E to LV E' Lateral Ratio 6.8 Mitral E to LV E' Septal Ratio 9.8 TR Peak Velocity 485.0 cm/s TR Peak Gradient 94.1 mmHg Right Atrial Pressure 3.0 mmHg Pulmonary Artery Systolic Pressu 97.1 mmHg PV Peak Velocity 90.0 cm/s RV Acceleration Time 0.2 s RV Ejection Time 0.4 s RV AcT/ET 0.4 FINDINGS Left Ventricle Mildly increased left ventricular cavity size. Mildly decreased left ventricular systolic function. Left ventricular ejection fraction is estimated at 45 %. Moderate global hypokinesis somewhat more pronounced in apical dover. Abnormal septal motion consistent with conduction abnormality. Right Ventricle Normal right ventricular size and systolic function. Right Atrium Normal right atrial size. Left Atrium Mildly increased left atrial size. Mitral Valve Mildly thickened mitral valve. No mitral valve stenosis. Trace mitral valve regurgitation. Aortic Valve Aortic valve not well visualized. Mildly thickened and calcified probably trileaflet aortic valve. Mild aortic valve stenosis, peak velocity 2.4 m/sec, mean gradient 11.6 mmHg, [place] 1.6 cm squared. Mild to moderate aortic valve regurgitation. Tricuspid Valve Structurally normal tricuspid valve. Trace tricuspid valve regurgitation. Pulmonic Valve Pulmonic valve not well visualized. No pulmonary valve stenosis. No pulmonary valve regurgitation. Pericardium No pericardial effusion. Aorta Normal size aortic root and proximal ascending aorta. CONCLUSIONS 1. This is a technically difficult study. Ultrasound enhancing agent (Optison) was used. 2. Mildly increased left ventricular cavity size. Mildly decreased left ventricular systolic function. Left ventricular ejection fraction is estimated at 45 %. Mild global hypokinesis somewhat more pronounced in apical dover. 3. Mild aortic valve stenosis, peak velocity 2.4 m/sec, mean gradient 11.6 mmHg, MEGHANA 1.6 cm squared. 4. Mild to moderate aortic valve regurgitation. Windy Larson MD (Electronically Signed) Final Date: 11 October 2020 20:47 S
[2020-10-11 12:42] LABS: Magnesium 2.3 mg/dL (1.7-2.3)
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
[2020-10-11 13:32] LABS: Add Urine Microscopic? NO
[2020-10-11 13:34] LABS: Bilirubin Urine Neg (Negative); Blood Urine Neg (Negative); Glucose Urine UA Norm (Normal); Ketones Urine Negative (Negative); Leukocyte Esterase Urine Negative (Negative); Nitrate Urine Negative (Negative); Protein Urine Neg (Negative); Urine Appearance Clear (CLEAR); Urine Color Yellow (Yellow); Urobilinogen Urine Norm (Negative); pH Urine 6.5 (5-7)
--- NOTE | 2020-10-11 14:12 | ECG_ITS ---
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 Measurements Intervals [place] Rate: 54 P: -7 IN: 196 QRS: -78 QRSD: 157 T: 68 QT: 470 QTc: 447 Interpretive Statements SINUS BRADYCARDIA LEFT AXIS DEVIATION [QRS AXIS < -30] RIGHT BUNDLE BRANCH BLOCK [120+ ms QRS DURATION, UPRIGHT V1, 40+ ms S IN I/aVL/V4/V5/V6] POSSIBLE SEPTAL MYOCARDIAL INFARCTION , OF INDETERMINATE AGE [30 ms Q WAVE IN V1/V2] Compared to ECG 10/11/2020 10:30:45 First degree AV block no longer present Myocardial infarct finding still present Electronically Signed On 10-11-2020 19:55:50 CDT by Laura Collado M.D. [id number]
[2020-10-11 14:39] LABS: Troponin 5 6HR 35.83 ng/L (0-15); Troponin 5 6HR Delta 10.83 ng/L (0-12)
[2020-10-11] MEDS: perflutren protein-a microsphr 0.22 mg/mL SDV 3 mL IV (16:13)
--- NOTE | 2020-10-11 17:53 | PC.RESP ---
Smoking Cessation and Pulmonary Rehab information sent to patient.
[2020-10-11] MEDS: enoxaparin 40 mg/0.4 mL Syringe SUBCUT (21:27)
[2020-10-12] VITALS (85 sets, daily range): BP systolic 79–149; BP diastolic 33–73; PULSE 28–77; RESP 7–27; TEMP 36.6–37.6; O2SAT 76–99
--- NOTE | 2020-10-12 | USCV_ITS ---
NOTE: Report was unsigned for reason: Order was edited. Original Signature date and time was: 10/12/20 @ 1537 Juarez Delgado Age: 74 Gender: M : 1945 Exam Date: 10/12/2020 14:09 Ordering Phys: Perfecto Garcia MD Technologist: Angela Saez [place] [facility] [place]: [place]DEMA HISTORY: Lower extremity edema. PROCEDURES: Venous duplex imaging was performed in bilateral lower extremities. The following venous structures were evaluated: common femoral vein, profunda vein, proximal portion of the greater saphenous vein, superficial femoral vein, and the popliteal vein. In addition, the posterior tibial and peroneal trunk were evaluated. Serial compression, augmentation maneuvers, and spectral Doppler flow evaluation were performed. FINDINGS: Patient has bandage from groin to mid thigh on right extremity from cath procedure today. Normal 2-D Doppler and augmentation and compressibility throughout the lower extremity venous structures. Additional imaging through the proximal calf veins also reveals no thrombus. Limited evaluation of the greater saphenous vein is patent with no thrombus. CONCLUSIONS No DVT bilateral lower extremities. Dr. Jimena Syed DO Edited by: CV Instrumentation Technician (Electronically Signed) Final Date: 12 October 2020 15:37 Amended: 13 October 2020 13:16 C EMMIED
[2020-10-12 04:59] LABS: Basophils # 0.1 10^3/uL (0.0-0.1); Basophils % 0.7 %; Eosinophils # 0.7 10^3/uL (0.0-0.8); Eosinophils % 8.6 %; Hematocrit 33.5 % (42.0-52.0); Hemoglobin 11.3 g/dL (11.7-16.6); Lymphocytes # 1.7 10^3/uL (0.8-4.8); Lymphocytes % 20.1 %; Mean Corpuscular HGB Conc 33.7 g/dL (30.0-36.0); Mean Corpuscular Hemoglobin 31.1 pg (28.0-34.0); Mean Corpuscular Volume 92.3 fL (80-94); Monocytes # 0.6 10^3/uL (0.2-0.9); Monocytes % 7.4 %; Nucleated Red Blood Cells % 0 %; Platelet Count 232 10^3/cmm (130-400); Red Blood Count 3.63 10^6/uL (4.1-5.3); Red Cell Distribution Width 12.9 % (12.1-15.1); White Blood Count 8.3 10^3/uL (4.0-10.0)
[2020-10-12 05:16] LABS: Blood Urea Nitrogen 20 mg/dL (8-23); Carbon Dioxide 22 mmol/L (22-29); Chloride 99 mmol/L (98-107); Glucose 95 mg/dL (65-115); Osmolality Calculated 274 mOsm/kg (285-295); Sodium 131 mmol/L (136-145)
[2020-10-12 05:39] LABS: Anion Gap 14.4 (5-19); Potassium 4.4 mmol/L (3.5-5.1)
--- NOTE | 2020-10-12 06:00 | PC.ADMIT ---
[address] Admission Note: The patient,Juarez Delgado,74 y/o, was given written information regarding hospital policies, unit procedures and contact persons. Patient's smoking status: current every day smoker. Vital Signs - 8 hr 10/12/20 00:00 10/12/20 04:00 10/12/20 05:27 Temperature 98 F 98 F Pulse Rate 59 L 62 57 L Respiratory Rate 22 H 23 H Blood Pressure 112/41 117/49 Pulse Oximetry 94 95
[2020-10-12] MEDS: aspirin 81 mg EC Tablet PO (06:01)
[2020-10-12] MEDS: spironolactone 25 mg Tablet PO (06:01)
[2020-10-12] MEDS: levothyroxine 75 mcg Tablet PO (06:01)
[2020-10-12] MEDS: losartan 50 mg Tablet PO (06:01)
[2020-10-12] MEDS: atorvastatin 40 mg Tablet PO (06:01)
[2020-10-12] MEDS: clopidogrel 75 mg Tablet PO (06:01)
[2020-10-12] MEDS: FUROsemide 40 mg Tablet PO (08:25)
[2020-10-12] MEDS: atropine 0.1 mg/mL Syr 10 mL 0.5 MG IVP ×2 (10:13→10:18)
--- NOTE | 2020-10-12 10:25 | PC.NURSE ---
I came out of room 5 and noticed patient left side lying on the floor outside of room 112. The patient was awake and talking when I reached his side. He was alert and oriented. Two other nurses came to assist. We were able to assist patient into a wheelchair and then back onto his bed. Patient was placed on the monitor to reveal a 3rd degree heart block. Dr. Garcia was telephoned and came immediately to the bedside. Patient states he had been up walking in the hallway. As he was returning to his room he reports feeling dizzy and like he was going to black out . He stated he placed his hand oon the wall and slid to the floor. A new abrasion was noted on the left elbow.
[2020-10-12] MEDS: DOPamine drip 400 MG/250 ML PREMIX 15.6 MG IV (10:30)
--- NOTE | 2020-10-12 10:33 | ECG_ITS ---
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 Measurements Intervals [place] Rate: 27 P: [place]: QRS: -7 QRSD: 189 T: -61 QT: 495 QTc: 336 Interpretive Statements SINUS TACHYCARDIA COMPLETE HEART BLOCK POSSIBLY VENTRICULAR ESCAPE RHYTHM LEFT BUNDLE BRANCH BLOCK Compared to ECG 10/11/2020 14:33:08 Left bundle-branch block now present Sinus bradycardia no longer present Left-axis deviation no longer present Right bundle-branch block no longer present Myocardial infarct finding no longer present Electronically Signed On 10-12-2020 22:29:27 CDT by Windy Larson M.D. [email or web address] county hospitalTeachableashtabula county medical center.[employer]/store/[id number]
[2020-10-12] MEDS: ondansetron 2 mg/ML SDV 2 mL 4 MG IVP (10:44)
--- NOTE | 2020-10-12 10:51 | PM.PN ---
Subjective Subjective: Interval history: Juarez was doing well earlier this morning. Heart rate had come up some and he was able to ambulate. However later on while ambulating he had a syncopal episode. He scraped his left elbow but denied any other injuries. Telemetry revealed new onset of complete heart block. Patient currently with some nausea but no chest discomfort. He has been moved to the ICU and placed on dopamine drip as atropine failed after 2 doses to increase his heart rate substantially from 25. Medications: Reviewed: Yes Vitals/I&O/Wt Last Vital Signs Temp 98.2 F 10/12/20 07:27 Pulse 68 10/12/20 07:27 Resp 23 H 10/12/20 07:27 BP 104/59 10/12/20 07:27 Pulse Ox 94 10/12/20 07:27 10/11/20 10/12/20 10/12/20 22:59 06:59 14:59 Intake Total 120 / 120 240 / 360 360 / 360 Output Total 400 / 400 350 / 750 Balance -280 / -280 -110 / -390 360 / 360 Weight last 48 hrs Weight 83.461 kg Physical Exam Narrative: EXAM NARRATIVE: General exam is a white male, no apparent distress Neck is supple no lymphadenopathy or thyromegaly Cardiovascular bradycardic systolic murmur, regular Lungs few expiratory wheezes. No crackles Abdomen is soft with positive bowel sounds. No obvious organomegaly Extremities no cyanosis clubbing or edema, cap refill brisk Data : 10/12/20 04:28 10/12/20 04:28 A&P Assessment and plan (1) Syncope: Concern cardiac arrhythmia may have generated syncope. This morning he developed third-degree heart block His carvedilol was held since admission Echocardiogram has been performed which demonstrated EF of 45%, global hypokinesis more pronounced apical dover mild aortic stenosis and mild to moderate aortic regurgitation TSH and magnesium level normal Status: Acute Qualifiers: Syncope type: unspecified Qualified Code(s): R55 - Syncope and collapse (2) Bradycardia: Carvedilol held Secondary to third-degree heart block symptomatic dopamine was initiated. Cardiology has been called and a temporary pacemaker is being planned Status: Acute (3) CAD (coronary artery disease): Troponin with slight elevation. Cardiology on board Status: Acute Qualifiers: Coronary Disease-Associated Artery/Lesion type: [place] artery [place] vs. transplanted heart: [place] heart Associated angina: angina presence unspecified Qualified Code(s): I25.10 - Atherosclerotic heart disease of [place] coronary artery without angina pectoris (4) COPD (chronic obstructive pulmonary disease): No evidence of exacerbation Status: Acute Additional A&P Information Hypertension. Hold carvedilol Hyperlipidemia. Continue statin Tobacco dependency. Counseled 3 to 5 minutes full code Lovenox for DVT prophylaxis Transferred to ICU secondary to complete heart block Attestations Medical Necessity Statement*: Needs continued hospital stay secondary to complete heart block with need for definitive procedure to prevent recurrence of syncope. Critical Care Time: The high probability of a clinically significant, sudden or life threatening deterioration of the patient's [cardiac] system(s) required my full and direct attention, intervention and personal management. The critical care time is as shown. This time is in addition to time spent performing any reported procedures but includes the following: [x] Data and vital sign review and interpretation [x] Patient assessment, examination and intervention [x] Documentation [x] Medication orders and management Critical Care Time (min): 47 Coding Level of Care Code Acute Service Writer Advisor for [facility] F[facility] Diagnoses Syncope R55 Syncope type: unspecified Bradycardia R00.1 CAD (coronary artery disease) I25.10 Coronary Disease-Associated Artery/Lesion type: [place] artery [place] vs. transplanted heart: [place] heart Associated angina: angina presence unspecified COPD (chronic obstructive pulmonary disease) J44.9
--- NOTE | 2020-10-12 10:59 | ECG_ITS ---
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 Measurements Intervals [place] Rate: 90 P: -15 NE: 187 QRS: -75 QRSD: 177 T: 87 QT: 404 QTc: 495 Interpretive Statements SINUS RHYTHM RIGHT BUNDLE BRANCH BLOCK [120+ ms QRS DURATION, UPRIGHT V1, 40+ ms S IN I/aVL/V4/V5/V6] LEFT ANTERIOR FASCICULAR BLOCK [QRS AXIS <= -45, QR IN I, RS IN II] POSSIBLE SEPTAL MYOCARDIAL INFARCTION [30 ms Q WAVE IN V1/V2], OF INDETERMINATE AGE Compared to ECG 10/12/2020 10:38:33 Right bundle-branch block now present Left anterior fascicular block now present Myocardial infarct finding now present Left bundle-branch block no longer present Electronically Signed On 10-12-2020 17:19:27 CDT by Windy Larson M.D. [id number]
--- NOTE | 2020-10-12 11:45 | XACV_ITS ---
Exam Room: [facility] Ht: 183 cm Wt: 83 kg BSA: 2.07 m2 Gender: Male : 1945 Any Known Allergies: No known allergies Exam Priority: Routine Procedure(s): Procedure Description: Diagnostic procedure Procedure Description: PCI procedure Procedure Description: Left Heart Catheterization Procedure Description: Drug Eluting Coronary Stent Procedure Description: PTCA Procedure Description: Miscellaneous Procedure Description: Temporary Pacemaker Insertion Diagnostic Cath Status: Emergency Diagnostic Findings * LM has 0% stenosis. * CX has 0% stenosis. * RCA has 0% stenosis. * pLAD to mLAD: Severe 100% stenosis, CHANEL: 0 flow. * mLAD: Severe 100% stenosis, CHANEL: 0 flow. * First Obtuse Marginal Branch Segment: Severe 80% stenosis, CHANEL: 3 flow. * Coronary angiography shows right dominance. PCI Status: Emergency PCI Indication: Other Interventional Findings * First Obtuse Marginal Branch Segment: 80% stenosis treated with MDT R ANJALI 3.0X12 LIZBETH and MDT NEVILLE EUPHORA RX [id number] BALLOON. 0% residual stenosis, CHANEL: 3 flow. * Reason for intervention: * Post code, complete heart block with chest pain off and on basis. Conclusions 1. There is severe coronary artery disease with one vessel disease. 2. First Obtuse Marginal Branch Segment was treated with Drug Eluting Stent and Balloon. 3. 73-year-old male was admitted with recurrent syncopes found to have intermittent complete heart block with severe sinus bradycardia and sinus pauses requiring CPR and external pacing. He was taken to the Fabric Normalizer. Temporary pacemaker was placed. He was also noted to have chronically occluded known LAD but new 80% eccentric obtuse marginal 1 lesion treated with drug-eluting stent.#1 Left main does not have any significant disease with luminal irregularity#2 LAD is known to be chronically occluded in the proximal segment#3 LCx has luminal irregularities, obtuse marginal 1 has proximal eccentric 80% stenosis#4 RCA is a dominant vessel without significant stenosis, still was not well engaged though but subselective injection was performed which did not show significant stenosis.Temporary pacemaker placement: Under emergent condition post code patient was immediately taken to the Fabric Normalizer, patient was consented for all risk benefit and already for the procedure. Under sterilized condition quick access was obtained using the right common femoral vein. Temporary pacemaker was placed in the right ventricle. Asynchronous mode was established while rate was set at 80 bpm. Pacing remained successful patient was stabilized first before proceeding with coronary angiogram.. 4. Reason for intervention: 5. Post code, complete heart block with chest pain off and on basis. Recommendations * 1-Return to inpatient for close monitoring and routine cath care 2-Risk factor modification for secondary prevention 3-Statin and aspirin 81 mg life--long, if tolerated 4-Continue Plavix 75mg p.o. daily for at least one year. We will assess at the end of one year again to continue if further or not 5-Continue optimal medical management, consider permanent pacemaker placement once ruled out reversible causes for complete heart block 6-Follow up with cardiology n in four weeks and your primary care in 10 days. Diagnostic RX Recommendation: PCI w/o planned CABG Pressures Phase:Rest AO : 141 / 46 ( 74 ) @ 7:27:00 AM / ( 0 ) @ 7:37:00 AM 108 / 36 ( 60 ) @ 7:48:00 AM Clinical Evaluation EBL: 5mL-10mL Procedural Details Procedure Consent Obtained. Admit Source: In Patient. Pre-Procedure Time Out. Identified patient by full name and date of as verbalized by the patient/guarantor. Accurate & Complete Informed Consent: N/A Emergent. Does the consent match the physician's order: N/A Emergent. Inpatient/Outpatient History & Physical on Chart: N/A Emergent. If H&P is completed, is and addenduem needed: N/A Emergent; If yes, is the addendum complete: N/A Emergent. Visualize and Verify Site with Patient/Guarantor: N/A. Relevant Radiology Images available: N/A Emergent. Pre-op teaching completed and patient verbalized understanding. The risks, benefits, and alternatives of sedation and/or procedure were discussed by physician. The patient agrees to continue. Procedure started. Correct patient, site and procedure confirmed by cath team. PERRLA. Strong, equal hand nurse unit manager bilaterally. Lungs clear x 5 lobes. IV Site on Arrival: 20 gauge in the right anticubital. IV Fluids: Dopamine drip at KVO. 10 mcg/hr started before laborer orchard. Dopamine running at 10mcg/kg/min. started in ICU. Oxygen started at 2liters/min via nasal canula. bilateral groins was prepped with chloroprep then draped in the usual sterile fashion. Physician notified. internal pacing on. Baseline sample Acquired. HR: 86 BPM. Physician arrived. Physician scrubbed in. Immediate Pre-Procedure Time Out. Correct Patient: Yes; Correct Procedure: Yes; Correct Site: Yes; Correct Patient Position: Yes; Correct Supplies: Yes; Dried Flammable Prep: Yes; Blood Products Available: N/A;. Lidocaine 1% infiltrated to the right groin. Venous access obtained with a micropuncture set. temporary pace maker inserted. rate 80 output 5 sensitivity is asynch. Arterial access obtained with micropuncture set. dopamine shut off at this time. A 6 niuean JL4 catheter in over wire. Multiple views taken of left coronary artery. Catheter out. A 5 niuean JR4 catheter in over wire. Multiple views taken of right coronary artery. temp pacer rate down turned down to 60. Catheter out. A 5 niuean 3DRC catheter in over wire. handinjection performed through catheter. Catheter out. A 5 niuean AL1 catheter in over wire. Catheter out. groin shot. A 5 niuean Kalpesh catheter in over wire. Catheter out. 6 niuean XB 3.5 guide catheter was inserted over the wire. [place] guidewire was advanced through the guide catheter to lesion in the OM1. Wire out. [place] guidewire was advanced through the guide catheter to lesion in the OM1. Inflation Number : 1 A MDT R ANJALI 3.0X12 LIZBETH -Lot Number# [id number] exp date: 07-03-2022 was prepped and advanced across the 1st Ob Marg1. The stent was deployed at 14 VANIA for 0:22 seconds. Stent balloon out over wire. Inflation number : 2 A MDT NC EUPHORA RX [id number] BALLOON was prepped and advanced across the 1st Ob Marg1 , then inflated to 12 VANIA for 0:14 seconds. Inflation number: 3 The MDT NC EUPHORA RX [id number] BALLOON was reinflated across the 1st Ob Marg1, to 12 VANIA for 0:12 seconds. Dopamine off at this time. Balloon out. checking results. Catheter out. wire out. Sheath(s) sutured into position with 2-0 silk and sterile 4x4's and Op-site applied over the site. No oozing or signs and symptoms of hematoma noted. Post Procedure: Pulses reassessed and unchanged. PERRLA. Strong, equal hand nurse unit manager bilaterally. No VTE prophylaxis required. ACT drawn. Results 282 seconds. Therapeutic limits - pre-heparin administration 90-150 seconds and monitoring heparin during a vascular procedure >250 seconds. A Suture was successful obtaining hemostatsis at the Right Femoral artery insertion site. A Manual Compression was successful obtaining hemostatsis at the Right Femoral vein insertion site. Medication's Wasted: Lidocaine 1% = 10 mL. Medication's Wasted: Heparin = 1000 units. Medication's Wasted: Other = fentanyl 50 mg. Total IV fluids: 100 mL. Contrast type used: Omnipaque 300 mgI/mL, 500 mL bottle. Omnipaque 445mL. Complications: none. Estimated blood loss: 5mL-10mL. Post-op diagnosis: complete heart block, temporary pace maker, and significant OM desease/ stent. Procedure completed. Patient transferred by bed to ICU. Vital chart was stopped. Access Site Site: Right Femoral vein Sheath Size: 6 Fr Hemostasis Method: Manual Compression Hemostasis Success: Successful Site: Right Femoral artery Sheath Size: 6 Fr Hemostasis Method: Suture Hemostasis Success: Successful Procedure Medications Start: 12:08 PM Stop: 12:08 PM Medication: Atropine Amount: 1 mg Route: I.V. Start: 12:10 PM Stop: 12:10 PM Medication: Versed Amount: 1 mg Route: I.V. Start: 12:10 PM Stop: 12:10 PM Medication: Fentanyl Amount: 25 mcg Route: I.V. Start: 12:29 PM Stop: 12:29 PM Medication: Versed Amount: 0.5 mg Route: I.V. Start: 12:40 PM Stop: 12:40 PM Medication: Dopamine 400mg/250 mL Amount: 10 mcg/kg/min Route: I.V. drip Start: 12:50 PM Stop: 12:50 PM Medication: Heparin Amount: 8000 units Route: I.V. Start: 12:56 PM Stop: 12:56 PM Medication: Versed Amount: 0.5 mg Route: I.V. Start: 1:08 PM Stop: 1:08 PM Medication: Fentanyl Amount: 25 mcg Route: I.V. I, the attending physician, have reviewed and verified all procedure medications. Yes, all medications given per verbal order Report Signatures Finalized by Francisco Griffin MD on 10/21/2020 04:24 PM
--- NOTE | 2020-10-12 11:57 | P.PN_ITS ---
Subjective Subjective: Interval history: I been asked to see the patient at the request of patient and family. Dr. Larson was consulted on the patient who apparently suggested temporary/permanent pacemaker due to recurrent syncope and intermittent complete heart block with heart rate drops down to 20s. Patient has prior history of ischemic cardiomyopathy with severe LV dysfunction left ventricle ejection fraction 35%. Patient was started on dopamine. He converted back to sinus rhythm with heart rate in the 60s when dopamine was stopped he had another episodes of symptomatic bradycardia with complete heart block requiring brief CPR and external pacing. Patient converted back to sinus rhythm again. At this point we will take him to the Electronic Warfare Operator for left heart cath in order to rule out ischemia and for temporary pacemaker. Patient has been consented by myself for all risk benefit and alternative for the procedure. He understand the risk of major minor bleed, urgent emergent surgery, tamponade, stroke, complete heart block requiring CPR external pacing and in worse case scenario . He would like to proceed with it. Vitals/I&O/Wt Last Vital Signs Temp 98.2 F 10/12/20 07:27 Pulse 68 10/12/20 07:27 Resp 23 H 10/12/20 07:27 BP 104/59 10/12/20 07:27 Pulse Ox 94 10/12/20 07:27 10/11/20 10/12/20 10/12/20 22:59 06:59 14:59 Intake Total 120 / 120 240 / 360 376.682 / 376.682 Output Total 400 / 400 350 / 750 Balance -280 / -280 -110 / -390 376.682 / 376.682 Weight last 48 hrs Weight 184 lb Physical Exam Narrative: EXAM NARRATIVE: GENERAL: Patient is alert, awake and oriented x3. NECK: No jugular vein distension. HEENT: No cyanosis. No icterus. No pallor. HEART: Regular S1 and S2. No murmur, rub or gallop. LUNGS: Clear to auscultate bilaterally. ABDOMEN: Soft, nontender and nondistended. Positive bowel sounds. No guarding, rebound or tenderness. CENTRAL NERVOUS SYSTEM: Grossly nonfocal. EXTREMITIES: Lower extremities without edema bilaterally. Data : 10/12/20 04:28 10/12/20 04:28 A&P Assessment and plan (1) Complete heart block: Patient goes in and out of complete heart block which is symptomatic leading to syncope. We will proceed with urgent temporary pacemaker Status: Acute (2) Aortic stenosis: Stable. Continue to monitor Status: Acute Qualifiers: Cardiac valve disease etiology: nonrheumatic Qualified Code(s): I35.0 - Nonrheumatic aortic (valve) stenosis (3) CAD (coronary artery disease): Will take patient to the Electronic Warfare Operator in order to rule out ischemia as patient was not of complete heart block. Status: Acute Qualifiers: Associated angina: angina presence unspecified Coronary Disease- Associated Artery/Lesion type: ely [place] artery [place] vs. transplanted heart: ely sh[place] heart Qualified Code(s): I25.10 - Atherosclerotic heart disease of ely [place] coronary artery without angina pectoris (4) HTN (hypertension): Status: Acute Qualifiers: Hypertension type: essential hypertension Qualified Code(s): I10 - Essential (primary) hypertension Attestations Medical Necessity Statement*: Patient require continuation hospitalization for above defined care. Coding Level of Care Code Established Pt Acute City Alderman for Kuldeep Wright Patient Type Established History Detailed Exam Detailed Medical Decision Making Moderate Complexity Diagnoses Complete heart block I44.2 Aortic stenosis I35.0 Cardiac valve disease etiology: nonrheumatic CAD (coronary artery disease) I25.10 Associated angina: angina presence unspecified Coronary Disease-Associated Artery/Lesion type: ely [place] artery [place] vs. transplanted heart: ely shoshone heart HTN (hypertension) I10 Hypertension type: essential hypertension
[2020-10-12] MEDS: sodium chloride 0.9% 1,000 ML 50 ML IV (14:00)
[2020-10-12] MEDS: mupirocin oint 22 gm 1 APPLIC NOSTRIL-B (14:41)
[2020-10-12 16:28] LABS: Partial Thromboplastin Time 208.5 SECONDS (23.9-36.7)
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
[2020-10-12] MEDS: sodium chloride 0.9% 250 ML IV (17:27)
[2020-10-12] MEDS: chlorhexidine gluconate 4% Btl 118 mL 1 APPLIC TOPICAL (17:28)
--- NOTE | 2020-10-12 19:14 | PC.NURSE ---
Patient arrived from CSU at 1030, patient heart rate very slow, Dr Garcia at bedside asking him questions, placed him on a Dopamine drip for his heart rate, titrated it up and back down to off. AT 1115 patient became bradycardic again and maria m down to 0 for a few seconds, had to externally pace him and called a code over head, physicians all at bedside discussed goals of care and decided to take patient to cath lab technologist for a temporary Pacemaker. Patient left for cath lab technologist at noon, but I placed a Ryan right before patient left for cath lab technologist, patient bradyed down again in laborer heading, they placed a stent in his OM and placed a temp pacer that is paced at 60 with a sense of 5. Patient returned from systems testing laboratory technician at 1400 and is in room resting, vitals stable, art line pressure on average around 60 map, Dr Garcia is okay with average map being 60 and above. Gave a 250ns bolus ordered from Dr Griffin when I informed him off patients critical Ptt and I told him about patients low Dystolic blood pressure. Patient is getting a permanent pacemaker tomorrow. NPO at midnight tonight, family updated.
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
[2020-10-12 22:32] LABS: Partial Thromboplastin Time 29.4 SECONDS (23.9-36.7)
[2020-10-13] VITALS (63 sets, daily range): BP systolic 65–127; BP diastolic 36–67; PULSE 58–67; RESP 12–23; TEMP 36.6–37.3; O2SAT 84–97
--- NOTE | 2020-10-13 | PC.NURSE ---
Made NPO at this time for placement of cardiac pacemaker 10/13. Pt educated and verbalized understanding.
--- NOTE | 2020-10-13 | SCC_ITS ---
Procedure Done: Dual-chamber pacemaker implantation 315.5 seconds of fluoroscopic guidance, for a cumulative dose of 63.36 mGy, was provided to Dr. Payne by the radiology department. C-arm images of the chest were saved for the patient's permanent record. [facility]
[2020-10-13] MEDS: sodium chloride 0.9% 1,000 ML 50 ML IV (00:15)
[2020-10-13] MEDS: fentaNYL 50 mcg/mL INJ 2mL IVP (00:50)
--- NOTE | 2020-10-13 01:26 | PC.NURSE ---
Sheath Removal Pt premedicated with 50mg fentanyl IVP. Right femoral arterial sheath pulled at 0045. Pressure held for 20 minutes until hemostasis acheived. Patient tolerated well. Educated on laying flat and leg straight, education on reportable signs and symptoms. Pt verbalized understanding. Site asymptomatic, no hematoma present. Placed dry sterile guaze dressing and tegaderm covering. Right venous sheath and temporary pacemaker still remain to right groin.
--- NOTE | 2020-10-13 03:07 | PC.NURSE ---
Back Pain Pt reports chronic lower back pain at an intensity of 3. Pt states usually lays on side to relieve discomfort, but sidelying contraindicated due to femoral arterial line removal and current use of femoral venous pacemaker.
[2020-10-13 04:06] LABS: Basophils # 0.1 10^3/uL (0.0-0.1); Basophils % 0.6 %; Eosinophils # 0.4 10^3/uL (0.0-0.8); Eosinophils % 3.4 %; Hematocrit 31.7 % (42.0-52.0); Hemoglobin 10.6 g/dL (11.7-16.6); Lymphocytes # 1.3 10^3/uL (0.8-4.8); Lymphocytes % 12.8 %; Mean Corpuscular HGB Conc 33.4 g/dL (30.0-36.0); Mean Corpuscular Hemoglobin 30.8 pg (28.0-34.0); Mean Corpuscular Volume 92.2 fL (80-94); Mean Platelet Volume 10.9 fL (7.4-10.4); Monocytes # 0.9 10^3/uL (0.2-0.9); Monocytes % 8.3 %; Neutrophils # 7.74 10^3/uL (1.8-7.7); Neutrophils % 74.6 %; Nucleated Red Blood Cells % 0 %; Platelet Count 211 10^3/cmm (130-400); Red Blood Count 3.44 10^6/uL (4.1-5.3); Red Cell Distribution Width 13.2 % (12.1-15.1); White Blood Count 10.4 10^3/uL (4.0-10.0)
[2020-10-13 04:22] LABS: Alanine Aminotransferase 8 U/L (0-41); Albumin Level 3.5 g/dL (3.5-5.2); Alkaline Phosphatase 66 IU/L (40-130); Anion Gap 14.5 (5-19); Aspartate Amino Transferase 12 U/L (0-40); Blood Urea Nitrogen 21 mg/dL (8-23); Calcium 8.2 mg/dL (8.5-10.5); Carbon Dioxide 21 mmol/L (22-29); Chloride 100 mmol/L (98-107); Globulin 2.5 g/dL (1.3-4.6); Glucose 96 mg/dL (65-115); Osmolality Calculated 275 mOsm/kg (285-295); Potassium 4.5 mmol/L (3.5-5.1); Sodium 131 mmol/L (136-145); Total Bilirubin 0.4 mg/dL (0.15-1.2)
--- NOTE | 2020-10-13 06:45 | PM.PN ---
Subjective Subjective: Interval history: Nurses report uneventful night. Patient is currently resting this morning with a heart rate of 60 and paced. He has been n.p.o. since midnight. Vitals/I&O/Wt Last Vital Signs Temp 99.1 F 10/13/20 05:20 Pulse 59 L 10/13/20 05:19 Resp 18 10/13/20 04:15 BP 112/41 10/13/20 04:15 Pulse Ox 92 10/13/20 04:15 10/12/20 10/12/20 10/13/20 14:59 22:59 06:59 Intake Total 376.682 / 376.682 250 / 626.682 512.5 / 1139.182 Output Total 1165 / 1165 500 / 1665 Balance 376.682 / 376.682 -915 / -538.318 12.5 / -525.818 Weight last 48 hrs Weight 184 lb Physical Exam Resp: COMMON NORMALS: normal respiratory effort, No use of accessory muscles, clear to auscultation bilaterally and percussion normal AUSCULTATION: clear to auscultation bilaterally PERCUSSION: percussion normal Cardio: COMMON NORMALS: regular rate, regular rhythm and No rub (Cardio) RATE: regular rate RHYTHM: regular rhythm Extremity: COMMON NORMALS: no clubbing, cyanosis or edema OTHER: August pacer in right femoral sheath in position. Urinary Catheter Management^: Ryan: Cath Placed During This Visit: yes Reason for Continuing Indwelling Catheter: Accurate Measurement of Urinary Output in Critically Ill Patients Urinary Catheter Date of Insertion: 10/12/20 Urinary Catheter Time of Insertion: 10:45 Data : 10/13/20 03:44 10/13/20 03:44 A&P Assessment and plan (1) Complete heart block: Will plan for dual-chamber permanent pacemaker implantation in late morning. Status: Acute Attestations Medical Necessity Statement*: Heart block requiring temporary pacing Time Spent in Patient Care: less than 15 minutes Coding Level of Care Code Acute Electromechanical Technologist for Kuldeep Wright Diagnoses Complete heart block I44.2
--- NOTE | 2020-10-13 07:25 | P.ANESASSM_ITS ---
Pre-Anesthetic Assessment Pre-Anesthetic Assessment: Height/Weight: Height 1.83 m Weight 83.461 kg Temp Pulse Resp BP Pulse Ox 99.1 F 59 L 18 112/41 92 10/13/20 05:20 10/13/20 05:19 10/13/20 04:15 10/13/20 04:15 10/13/20 04:15 Preop Diagnosis: bradycardia Proposed Procedure: Operation Date: 10/13/20 09:00 Proposed Procedures p Pacemaker Insertion/AICD(Left) - Peter Payne MD Familial anesthetic complications: none Was Beta Melodie taken within 24 hours: Yes Was Clonidine taken within 24 hours: N/A Last intake: > 8 hrs Social: Social History: Tobacco and No alcohol Exam: Pre-Anes Outpt Exam: alert, oriented x 3, clear to auscultation bilaterally and regular rate & rhythm Airway: Cervical ROM: WNL MP: 3 Dentition: False Pulmonary: Comments: hx pneomonia CV/HEM: CV/HEM: CAD, CHF, HTN and TN Comments: hear paxton : Comments: LICO Metabolic: Metabolic: Thyroid Anesthetic Plan: ASA status: 4 Anesthesia: MAC Risk of > 500 ml blood loss (7ml/kg in children): No Meds/Allergies Current Medications: Current Medications Generic Name Dose Route Start Last Admin Trade Name Freq PRN Reason Stop Dose Admin Aspirin 81 mg 10/12/20 06:00 10/12/20 06:01 Aspirin 81 Mg Ec Tablet PO 81 mg QAM DAVID Administration Atorvastatin Calci um 40 mg 10/12/20 06:00 10/12/20 06:01 Atorvastatin 40 Mg Tablet PO 40 mg QAM DAVID Administration Chlorhexidine Gluc david 1 applic 10/12/20 18:00 10/12/20 17:28 Chlorhexidine Gl uconate 4% Btl 118 Ml TOPICAL 1 applic BID DAVID Administration Clopidogrel Bisulf ate 75 mg 10/12/20 06:00 10/12/20 06:01 Clopidogrel 75 M g Tablet PO 75 mg QAM DAVID Administration Fentanyl 50 mcg 10/12/20 13:31 10/13/20 00:50 Fentanyl 50 Mcg/ Ml Inj 2ml IVP 50 mcg PRN PRN Administration PAIN Sodium Chloride 1,000 mls @ 50 ml s/hr 10/12/20 13:45 10/13/20 00:15 Sodium Chloride 0.9% IV 50 mls/hr .Q20H DAVID Administration Levothyroxine Sodi um 75 mcg 10/12/20 06:00 10/12/20 06:01 Levothyroxine 75 Mcg Tablet PO 75 mcg QAM DAVID Administration Ondansetron HCl 4 mg 10/11/20 14:52 10/12/20 10:44 Ondansetron 2 Mg /Ml Sdv 2 Ml IVP 4 mg Q6H PRN Administration NAUSEA AND VOMITI NG PFSH Anesthesia PFSH: Medical History AMI (acute myocardial infarction) Aortic stenosis Echo January 2018 demonstrated mild aortic regurgitation. Aortic valve sclerosis was seen. I do not see notations in report regarding aortic valve stenosis. CAD (coronary artery disease) Angiogram August 2019 demonstrated EF around 35%, LAD chronic occlusion, first obtuse marginal 60% stenosis, RCA ulcerated 90% stenosis which was stented Chronic kidney disease (CKD) stage G1/A1, glomerular filtration rate (GFR) equal to or greater than 90 mL/min/1.73 square meter and albuminuria creatinine ratio less than 30 mg/g COPD (chronic obstructive pulmonary disease) Dyspnea Erectile dysfunction HLD (hyperlipidemia) HTN (hypertension) Hypothyroidism Ischemic cardiomyopathy Squamous cell carcinoma skin of arm Tobacco abuse Surgical History S/P PTCA (percutaneous transluminal coronary angioplasty) August 2019 Family History Brother CAD (coronary artery disease) Social History Smoking and tobacco status: current every day smoker cigarettes Quit status (tobacco): has quit using tobacco Alcohol intake: current Alcohol intake frequency: few times a month Data Anesthesia CBC & Chem 7: 10/14/20 05:06 10/14/20 05:06 Other Labs: Laboratory Results - last 48 hr 10/11/20 10/11/20 10/11/20 07:45 07:45 07:45 WBC 8.1 RBC 3.89 L Hgb 12.2 Hct 35.7 L MCV 91.8 MCH 31.4 MCHC 34.2 RDW 12.9 Plt Count 260 MPV 10.9 H Neut % (Auto) 53.3 Lymph % (Auto) 24.0 [place] % (Auto) 8.6 Eos % (Auto) 13.0 Baso % (Auto) 0.7 Neut # (Auto) 4.30 Lymph # (Auto) 1.9 [place] # (Auto) 0.7 Eos # (Auto) 1.1 H Baso # (Auto) 0.1 Nucleated RBC % (auto) 0 Nucleated RBCs # 0.0 APTT Sodium 132 L Potassium 4.5 Chloride 98 Carbon Dioxide 22 Anion Gap 16.5 BUN 23 Creatinine 1.4 H GFR Calculation Not Reportable Glucose 152 H Calculated Osmolality 281 L Calcium 9.1 Magnesium Total Bilirubin 0.6 AST 18 ALT 12 Alkaline Phosphatase 70 Creatine Kinase 139 Troponin T Baseline 25 H Troponin T 120 Minute Delta Troponin T Troponin T Hi Sens 6Hr Troponin T Hi Sens 6Hr Delta Total Protein 7.2 Albumin 4.3 Globulin 2.9 TSH Urine Color Urine Appearance Urine pH Ur Specific [place] Urine Protein Urine Glucose (UA) Urine Ketones Urine Blood Urine Nitrate Urine Bilirubin Urine Urobilinogen Ur Leukocyte Esterase 10/11/20 10/11/20 10/11/20 07:45 09:50 13:23 WBC RBC Hgb Hct MCV MCH MCHC RDW Plt Count MPV Neut % (Auto) Lymph % (Auto) [place] % (Auto) Eos % (Auto) Baso % (Auto) Neut # (Auto) Lymph # (Auto) [place] # (Auto) Eos # (Auto) Baso # (Auto) Nucleated RBC % (auto) Nucleated RBCs # APTT Sodium Potassium Chloride Carbon Dioxide Anion Gap BUN Creatinine GFR Calculation Glucose Calculated Osmolality Calcium Magnesium 2.3 Total Bilirubin AST ALT Alkaline Phosphatase Creatine Kinase Troponin T Baseline Troponin T 120 Minute 30.06 H Delta Troponin T 5.06 Troponin T Hi Sens 6Hr Troponin T Hi Sens 6Hr Delta Total Protein Albumin Globulin TSH 4.20 Urine Color Yellow Urine Appearance Clear Urine pH 6.5 Ur Specific [place] 1.010 Urine Protein Neg Urine Glucose (UA) Norm Urine Ketones Negative Urine Blood Neg Urine Nitrate Negative Urine Bilirubin Neg Urine Urobilinogen Norm Ur Leukocyte Esterase Negative 10/11/20 10/12/20 10/12/20 14:15 04:28 04:28 WBC 8.3 RBC 3.63 L Hgb 11.3 L Hct 33.5 L MCV 92.3 MCH 31.1 MCHC 33.7 RDW 12.9 Plt Count 232 MPV 11.0 H Neut % (Auto) 63.0 Lymph % (Auto) 20.1 [place] % (Auto) 7.4 Eos % (Auto) 8.6 Baso % (Auto) 0.7 Neut # (Auto) 5.20 Lymph # (Auto) 1.7 [place] # (Auto) 0.6 Eos # (Auto) 0.7 Baso # (Auto) 0.1 Nucleated RBC % (auto) 0 Nucleated RBCs # 0.0 APTT Sodium 131 L Potassium 4.4 Chloride 99 Carbon Dioxide 22 Anion Gap 14.4 BUN 20 Creatinine 1.3 H GFR Calculation Not Reportable Glucose 95 Calculated Osmolality 274 L Calcium 9.0 Magnesium Total Bilirubin AST ALT Alkaline Phosphatase Creatine Kinase Troponin T Baseline Troponin T 120 Minute Delta Troponin T Troponin T Hi Sens 6Hr 35.83 H Troponin T Hi Sens 6Hr Delta 10.83 Total Protein Albumin Globulin TSH Urine Color Urine Appearance Urine pH Ur Specific [place] Urine Protein Urine Glucose (UA) Urine Ketones Urine Blood Urine Nitrate Urine Bilirubin Urine Urobilinogen Ur Leukocyte Esterase 10/12/20 10/12/20 10/13/20 15:40 22:15 03:44 WBC 10.4 H RBC 3.44 L Hgb 10.6 L Hct 31.7 L MCV 92.2 MCH 30.8 MCHC 33.4 RDW 13.2 Plt Count 211 MPV 10.9 H Neut % (Auto) 74.6 Lymph % (Auto) 12.8 [place] % (Auto) 8.3 Eos % (Auto) 3.4 Baso % (Auto) 0.6 Neut # (Auto) 7.74 H Lymph # (Auto) 1.3 [place] # (Auto) 0.9 Eos # (Auto) 0.4 Baso # (Auto) 0.1 Nucleated RBC % (auto) 0 Nucleated RBCs # 0.0 APTT 208.5 H* 29.4 D Sodium Potassium Chloride Carbon Dioxide Anion Gap BUN Creatinine GFR Calculation Glucose Calculated Osmolality Calcium Magnesium Total Bilirubin AST ALT Alkaline Phosphatase Creatine Kinase Troponin T Baseline Troponin T 120 Minute Delta Troponin T Troponin T Hi Sens 6Hr Troponin T Hi Sens 6Hr Delta Total Protein Albumin Globulin TSH Urine Color Urine Appearance Urine pH Ur Specific [place] Urine Protein Urine Glucose (UA) Urine Ketones Urine Blood Urine Nitrate Urine Bilirubin Urine Urobilinogen Ur Leukocyte Esterase 10/13/20 03:44 WBC RBC Hgb Hct MCV MCH MCHC RDW Plt Count MPV Neut % (Auto) Lymph % (Auto) [place] % (Auto) Eos % (Auto) Baso % (Auto) Neut # (Auto) Lymph # (Auto) [place] # (Auto) Eos # (Auto) Baso # (Auto) Nucleated RBC % (auto) Nucleated RBCs # APTT Sodium 131 L Potassium 4.5 Chloride 100 Carbon Dioxide 21 L Anion Gap 14.5 BUN 21 Creatinine 1.3 H GFR Calculation Not Reportable Glucose 96 Calculated Osmolality 275 L Calcium 8.2 L Magnesium Total Bilirubin 0.4 AST 12 ALT 8 Alkaline Phosphatase 66 Creatine Kinase Troponin T Baseline Troponin T 120 Minute Delta Troponin T Troponin T Hi Sens 6Hr Troponin T Hi Sens 6Hr Delta Total Protein 6.0 L Albumin 3.5 Globulin 2.5 TSH Urine Color Urine Appearance Urine pH Ur Specific [place] Urine Protein Urine Glucose (UA) Urine Ketones Urine Blood Urine Nitrate Urine Bilirubin Urine Urobilinogen Ur Leukocyte Esterase Cardiac Studies: Echocardiogram 10/11/20
[2020-10-13] MEDS: chlorhexidine gluconate 4% Btl 118 mL 1 APPLIC TOPICAL (08:30)
--- NOTE | 2020-10-13 08:30 | PC.NURSE ---
Patient care assumed by RN at 0822. Patient currently resting in bed in no distress. Assessment performed. Please see physical assessment et vital sign flowsheets for details.
--- NOTE | 2020-10-13 10:49 | SC_ITS ---
WS: [id number] C-arm fluoroscopy of the chest for pacemaker placement, 10/13/2020 Clinical Data: pacemaker Comparison: Portable chest, 10/11/2020. Findings: Permanent pacemaker wires were placed within the heart. SC/C-arm FL for Pacemaker Impression: Placement of permanent pacemaker wires.
--- NOTE | 2020-10-13 11:11 | PM.PN ---
Subjective Subjective: Interval history: Patient reports no particular concerns other than irritated at laying flat. No cardiac concerns following placement of temporary pacemaker. Denies chest discomfort. Medications: Reviewed: Yes Vitals/I&O/Wt Last Vital Signs Temp 98.4 F 10/13/20 08:00 Pulse 60 10/13/20 11:00 Resp 18 10/13/20 11:00 BP 102/46 10/13/20 11:00 Pulse Ox 93 10/13/20 11:00 10/12/20 10/13/20 10/13/20 22:59 06:59 14:59 Intake Total 250 / 626.682 512.5 / 1139.182 Output Total 1165 / 1165 500 / 1665 Balance -915 / -538.318 12.5 / -525.818 Physical Exam Narrative: EXAM NARRATIVE: General exam is a white male, no apparent distress Neck is supple no lymphadenopathy or thyromegaly Cardiovascular bradycardic systolic murmur, regular Lungs few expiratory wheezes. No crackles Abdomen is soft with positive bowel sounds. No obvious organomegaly Right groin without significant hematoma. Temporary pacer in place Extremities no cyanosis clubbing or edema, cap refill brisk Urinary Catheter Management^: Ryan: Cath Placed During This Visit: yes Reason for Continuing Indwelling Catheter: Accurate Measurement of Urinary Output in Critically Ill Patients Urinary Catheter Date of Insertion: 10/12/20 Urinary Catheter Time of Insertion: 10:45 Data : 10/13/20 03:44 10/13/20 03:44 A&P Assessment and plan (1) Syncope: Third-degree heart block diagnosed Required temporary pacer yesterday, after failing atropine and dopamine Permanent pacemaker today His carvedilol was held since admission Echocardiogram has been performed which demonstrated EF of 45%, global hypokinesis more pronounced apical dover mild aortic stenosis and mild to moderate aortic regurgitation TSH and magnesium level normal Status: Acute Qualifiers: Syncope type: unspecified Qualified Code(s): R55 - Syncope and collapse (2) Bradycardia: See above Status: Acute (3) CAD (coronary artery disease): Troponin with slight elevation. Cardiology on board During time of insertion of temporary pacemaker angiogram was also performed to check for ischemia. Stenting of obtuse marginal, circumflex artery was also performed. Continue Plavix, aspirin, statin Likely restart carvedilol as well after permanent pacemaker has been placed. Status: Acute Qualifiers: Coronary Disease-Associated Artery/Lesion type: [place] artery [place] vs. transplanted heart: [place] heart Associated angina: angina presence unspecified Qualified Code(s): I25.10 - Atherosclerotic heart disease of [place] coronary artery without angina pectoris (4) COPD (chronic obstructive pulmonary disease): No evidence of exacerbation Status: Acute Additional A&P Information Hypertension. Hold carvedilol currently Hyperlipidemia. Continue statin Tobacco dependency. Counseled 3 to 5 minutes full code Lovenox for DVT prophylaxis Possible transfer out of the ICU today if he does well after pacemaker. Attestations Medical Necessity Statement*: Needs continued hospitalization for definitive care of complete heart block. Coding Level of Care Code Acute Senior Environmental Technician for Sherig Fwd Diagnoses Syncope R55 Syncope type: unspecified Bradycardia R00.1 CAD (coronary artery disease) I25.10 Coronary Disease-Associated Artery/Lesion type: [place] artery [place] vs. transplanted heart: [place] heart Associated angina: angina presence unspecified COPD (chronic obstructive pulmonary disease) J44.9
--- NOTE | 2020-10-13 13:26 | PC.CHAP ---
Pastoral Care Encounter/Spiritual Assessment Type of Contact [] Declined air hole driller visit [] Patient/Family/Request visit [] Outpatient visit [] Follow-up visit [] Physician referral [] Code/Alert [] Routine visit [] Staff referral [] Actively dying [] Patient sleeping [] Family support [] [xx Out of room [] Palliative care [] [] Receiving care in room [] Pre-surgical visit [] Trauma [] Long length of stay [xx] ICU visit [] Other: Relational/Emotional Strength [] Patient feels connected with others/family/visitors/staff [] Distress [] Loneliness/isolation [] Abandonment Spirituality of Patient [] Person of Cecy [] Attends Taoism of their Cecy [] Believes in Prayer [] Reads Bible or Restorationist materials [] There are Spiritual issues to be addressed Map Editor Interventions [] Prayer [] Active listening [] Non-anxious presence [] Spiritual/emotional support [] Crisis/trauma care [] Spiritual counseling [] Bereavement support [] Provided bereavement packet [] Provided Bible/devotional materials [] Provided toy/stuffed animal, coloring book to patient or family member [] Provided Communion [] Anointing/[place] [] Salvation [] Completed spiritual assessment [] Other: Impact on Illness or Injury [] Angry [] Fearful [] Anxious [] Often cries [] Exhaustion [] Unable to work [] Unable to attend amish [] Unable to walk/stand [] Unable to read [] Unable to drive [] Unable to eat/drink [] Unable to sleep [] Unable to be with family [] Patient intubated [] Other: Summary Patient out for surgery. Follow up needed. Time spent with patient 1 minute
[2020-10-13] MEDS: ceFAZolin 1,000 mg SDV 1000 MG IRRIGATION (13:50)
[2020-10-13] MEDS: lidocaine 1% INJ 20 mL INJECTION (13:51)
--- NOTE | 2020-10-13 15:10 | PM.OP ---
Operative Report Date of procedure: October 13, 2020 Pre-op Diagnosis: Third-degree block requiring temporary pacing Post-op diagnosis: same Procedure Done: Dual-chamber pacemaker implantation Implants: Atrial and ventricular pacing leads; pacing generator Pathology: none sent Surgeon: Peter Payne Anesthesia: MAC and Local Estimated blood loss (mL): 20 Complications: None Condition: stable Disposition: ICU Brief History: 74-year-old gentleman presented with chest discomfort and subsequent left heart catheterization revealed a proximal OMB lesion which underwent coronary stenting. He developed heart block later requiring placement of a temporary pacer. I was consulted for pacemaker implantation given his recent administration of antiplatelets for his stent. Details the risk of the procedure were Discussed including increased bleeding complication risk related to his anticoagulation. Proper consents have been reviewed and signed. Procedure: Procedure: Mr. Delgado was taken to the OR suite and placed in the supine position over a shoulder roll. He received conscious sedation with continuous anesthesia monitoring by. He is entire chest was sterilely prepped and draped. 1% lidocaine was infiltrated in the left subclavicular region. While in Trendelenburg position, utilizing modified seldinger technique, 2 guidewires were placed in the left subclavian vein. This was confirmed in position by fluoroscopy. Next, after infiltration with lidocaine, a subcutaneous pocket was created beginning from the exit point of the guidewire and extending laterally and inferiorly. Cautery was utilized to create the pocket just above the pectoralis musculature. Hemostasis was confirmed. An antibiotic-soaked sponge was placed in the wound. A dilator and tear-away sheath was placed over the first guidewire and advanced under fluoroscopy. Guidewire and dilator were removed. Next using a combination of curved and straight stylettes, the right ventricular lead was placed in position by fluoroscopy. The distal screw was extended. Interrogation was then performed confirming appropriate parameters. The tear-away sheath was then removed and the ventricular lead was sewn to the floor of the subcutaneous pocket. In a similar fashion dilator and tear-away sheath was placed over the 2nd guide wire and advanced under fluoroscopy. Guidewire and dilator were removed. Straight and curved stylettes were used to position the right atrial lead with fluoroscopy. Distal screw was extended. Interrogation was then performed. Tear-away sheath was then removed. Atrial lead was secured to the floor of the subcutaneous pocket. Pocket was irrigated with antibiotic solution and hemostasis again confirmed. Pacing generator was brought into the field, and after confirmation of hemostasis in the subcutaneous pocket, the leads were connected to the generator with appropriate capture. The entire system was interrogated by fluoroscopy. Leads and generator were secured in the pocket. Sponge and needle count was correct. The wound was then closed in 2 layers of 3-0 Vicryl suture. Skin was reapproximated in a subcuticular manner with 4-0 Monocryl suture. A pressure dressing was applied. The left arm was placed in a sling. The patient had equal breath sounds bilaterally. He was then transferred back to the ICU, where chest x-ray is currently pending. Family was kept abreast of progress of the procedure throughout. Following are the specifics of this system: Right ventricular lead is 58 cm and model 5076. Serial number [id number] Right atrial lead is 52 cm and is model 5076. Serial number [id number]. Ventricular lead had sensing be determined due to need for temporary pacing throughout the procedure with an impedance of 665 ohms. Threshold was 0.8 V Atrial lead had sensing of 2.1 mV with an impedance of 418 ohms. Threshold was 0.75 V. Peg Bandwidth generator: Model # [id number] Serial #[id number]
[2020-10-13] MEDS: clopidogrel 75 mg Tablet PO (16:25)
--- NOTE | 2020-10-13 17:14 | PC.NURSE ---
This nurse took over care for Mr. Delgado at 1700. Pt assessment completed at bedside. Pt denies generalized pain, chest pain, shortness of breath, N&V. Pt lungs noted to be clear on inspiration and wheezes on expiration, RA at this time O2-96%. Pt reports nonproductive cough and states due to smoking. Surgical incision on left upper chest, dry and intact. Pt currently has a urinary catheter- bright yellow colored urine and last BM was 10/12 per patient. No swelling of bilateral lower extremities noted and dorsalis pedis pulse 2+ bilaterally. Right femoral venous sheath in dressing in place, dry and intact. Skin noted to be warm and dry. Vital signs listed below: Vital Signs HR:60 BP:127/61 O2:96%-RA RR:17 TEMP:97.9-ORAL
--- NOTE | 2020-10-13 18:00 | ANE.PACU2 ---
Inpatient post-anesthesia follow up: Airway intact: Yes Vital signs: Temperature 98.9 F Pulse Rate [Apical ] 60 Pulse Rate [Orthos tatic 53 Sitting Right] Pulse Rate [Orthos tatic Lying 52 Right] Pulse Rate 63 Respiratory Rate 20 Blood Pressure [Or thostatic 108/49 Sitting Right Arm] Blood Pressure [Or thostatic 107/52 Lying Right Arm] Blood Pressure [Le ft Arm] 124/53 Blood Pressure 123/56 Pulse Oximetry 92 Oxygen Delivery Me thod [ Room Air Current Rate & Del laverne] Oxygen Delivery Me thod Room Air Oxygen Flow Rate [ Current Rate 2 & Delivery] Oxygen Flow Rate 1 Fraction of Inspir ed Oxygen Hydration adequate: Yes Nausea and vomiting: No Pain level: 2 Mental status: Baseline
[2020-10-13] MEDS: ceFAZolin 1,000 MG in sodium chloride 0.9% (plus) 50 ML 100 MG IV (18:11)
[2020-10-14] VITALS (16 sets, daily range): BP systolic 99–140; BP diastolic 49–64; PULSE 60–76; RESP 16–25; TEMP 36.7–37.2; O2SAT 91–95
--- NOTE | 2020-10-14 00:14 | PC.NURSE ---
Sheath Removal Right femoral venous sheath removed at this time. Pressure held for until hemostasis achieved. Site cleans with chlorhexidine applied dry sterile dressing. Pt tolerated well.
[2020-10-14] MEDS: ceFAZolin 1,000 MG in sodium chloride 0.9% (plus) 50 ML 100 MG IV ×2 (03:43→11:28)
[2020-10-14 05:21] LABS: Basophils # 0.1 10^3/uL (0.0-0.1); Basophils % 0.5 %; Eosinophils # 0.9 10^3/uL (0.0-0.8); Eosinophils % 9.1 %; Hematocrit 31.6 % (42.0-52.0); Hemoglobin 10.5 g/dL (11.7-16.6); Lymphocytes # 1.1 10^3/uL (0.8-4.8); Lymphocytes % 10.3 %; Mean Corpuscular HGB Conc 33.2 g/dL (30.0-36.0); Mean Corpuscular Volume 93.2 fL (80-94); Mean Platelet Volume 10.7 fL (7.4-10.4); Monocytes # 0.7 10^3/uL (0.2-0.9); Monocytes % 6.3 %; Neutrophils # 7.55 10^3/uL (1.8-7.7); Neutrophils % 73.5 %; Nucleated Red Blood Cells % 0 %; Platelet Count 193 10^3/cmm (130-400); Red Blood Count 3.39 10^6/uL (4.1-5.3); Red Cell Distribution Width 13.1 % (12.1-15.1); White Blood Count 10.3 10^3/uL (4.0-10.0)
[2020-10-14 05:49] LABS: Anion Gap 13.1 (5-19); Blood Urea Nitrogen 17 mg/dL (8-23); Calcium 8.5 mg/dL (8.5-10.5); Carbon Dioxide 19 mmol/L (22-29); Chloride 105 mmol/L (98-107); Glucose 90 mg/dL (65-115); Osmolality Calculated 277 mOsm/kg (285-295); Potassium 4.1 mmol/L (3.5-5.1); Sodium 133 mmol/L (136-145)
--- NOTE | 2020-10-14 06:00 | XRR_ITS ---
PROCEDURE INFORMATION: Exam: XR Chest Exam date and time: 10/13/2020 11:59 PM Age: 74 years old Clinical indication: Device placement; Cardiac pacemaker placement or adjustment; Prior surgery; Surgery date: Post-operative (0-2 days); Additional info: S/P pacemaker TECHNIQUE: Imaging protocol: XR of the chest Views: 1 view. COMPARISON: CR XR chest 1V portable [id number] 10/11/2020 8:15 AM FINDINGS: Lungs: No consolidation. Pleural spaces: Unremarkable. No pleural effusion. No pneumothorax. Heart/Mediastinum: There is a pacemaker present over the left chest with leads in the right atrium and right ventricle. Bones/joints: No acute fracture. XR/XR chest 1V portable [id number] IMPRESSION: No acute findings.
[2020-10-14] MEDS: atorvastatin 40 mg Tablet PO (06:07)
[2020-10-14] MEDS: clopidogrel 75 mg Tablet PO (06:08)
[2020-10-14] MEDS: levothyroxine 75 mcg Tablet PO (06:09)
[2020-10-14] MEDS: aspirin 81 mg EC Tablet PO (06:09)
[2020-10-14] MEDS: FUROsemide 40 mg Tablet PO (07:40)
[2020-10-14] MEDS: losartan 50 mg Tablet PO (08:13)
[2020-10-14] MEDS: pantoprazole DR 40 mg Tablet PO (08:14)
[2020-10-14] MEDS: spironolactone 25 mg Tablet PO (08:14)
--- NOTE | 2020-10-14 12:19 | P.PN_ITS ---
Subjective Subjective: Interval history: Status post permanent pacemaker placement yesterday and post PCI day before yesterday. Wound looks good. Blood pressure on the little lower side we will adjust the medicine. Overall patient is feeling fine. Medications: Reviewed: Yes Vitals/I&O/Wt Last Vital Signs Temp 98.1 F 10/14/20 12:00 Pulse 70 10/14/20 12:00 Resp 19 H 10/14/20 12:00 BP 99/64 10/14/20 12:00 Pulse Ox 93 10/14/20 12:00 10/13/20 10/14/20 10/14/20 22:59 06:59 14:59 Intake Total 50 / 100 410 / 510 120 / 120 Output Total 995 / 1495 115 / 1610 1450 / 1450 Balance -945 / -1395 295 / -1100 -1330 / -1330 Physical Exam Narrative: EXAM NARRATIVE: GENERAL: Patient is alert, awake and oriented x3. NECK: No jugular vein distension. HEENT: No cyanosis. No icterus. No pallor. HEART: Regular S1 and S2. No murmur, rub or gallop. LUNGS: Clear to auscultate bilaterally. ABDOMEN: Soft, nontender and nondistended. Positive bowel sounds. No guarding, rebound or tenderness. CENTRAL NERVOUS SYSTEM: Grossly nonfocal. EXTREMITIES: Lower extremities without edema bilaterally. Urinary Catheter Management^: Ryan: Cath Placed During This Visit: yes, but has since been removed by the nurse Reason for Continuing Indwelling Catheter: Decision to DC Catheter Urinary Catheter Date of Insertion: 10/12/20 Urinary Catheter Time of Insertion: 10:45 Date Urinary Catheter Removed: 10/14/20 Time Urinary Catheter Discontinued: 02:23 Data : 10/14/20 05:06 10/14/20 05:06 A&P Assessment and plan (1) Complete heart block: Status post permanent pacemaker placement. Doing fine from a cardiovascu lar perspective. Patient will be discharged today. Follow-up with pacemaker clinic with Dr. Payne. Follow-up with Dr. Griffin in 6 weeks Status: Acute (2) Syncope: Resolved status post permanent pacemaker placement. Most likely syncope was due to complete heart block. Status: Acute Qualifiers: Syncope type: unspecified Qualified Code(s): R55 - Syncope and collapse (3) CAD (coronary artery disease): Patient underwent proximal obtuse marginal stent placement for significant stenosis. Overall doing fine from cardiovascular perspective. Left ejection fraction has increased from 35 to 40% as per recent echo. Will adjust the medicine.. Status: Acute Qualifiers: Coronary Disease-Associated Artery/Lesion type: [place] artery [place] vs. transplanted heart: [place] heart Associated angina: angina presence unspecified Qualified Code(s): I25.10 - Atherosclerotic heart disease of [place] coronary artery without angina pectoris (4) HTN (hypertension): Blood pressure is on the lower side. We will reduce losartan Status: Acute Qualifiers: Hypertension type: essential hypertension Qualified Code(s): I10 - Essential (primary) hypertension (5) Ischemic cardiomyopathy: Currently stable post PCI to obtuse marginal. Status: Acute Additional A&P Information Right bundle branch block First-degree AV block Hyponatremia Elevated troponin Chronic kidney disease baseline creatinine ~1.4 Thank you for allowing me to participate in patient's care. Please feel free to call with questions or concerns. Attestations Medical Necessity Statement*: From a cardiovascular perspective. 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 transplanted heart: [place] heart Associated angina: angina presence unspecified HTN (hypertension) I10 Hypertension type: essential hypertension Ischemic cardiomyopathy I25.5
--- NOTE | 2020-10-14 12:24 | P.PN_ITS ---
Subjective Subjective: Interval history: Please note that this is a progress note I missed to document dated 10/13/2020. Patient post PCI did fine overnight. No hematoma in the right groin. Temporary pacemaker is working fine without any problem. Patient will be going for permanent pacemaker placement with Dr. Payne. Medications: Reviewed: Yes Vitals/I&O/Wt Last Vital Signs Temp 98.1 F 10/14/20 12:00 Pulse 70 10/14/20 12:00 Resp 19 H 10/14/20 12:00 BP 99/64 10/14/20 12:00 Pulse Ox 93 10/14/20 12:00 10/13/20 10/14/20 10/14/20 22:59 06:59 14:59 Intake Total 50 / 100 410 / 510 120 / 120 Output Total 995 / 1495 115 / 1610 1450 / 1450 Balance -945 / -1395 295 / -1100 -1330 / -1330 Physical Exam Narrative: EXAM NARRATIVE: GENERAL: Patient is alert, awake and oriented x3. NECK: No jugular vein distension. HEENT: No cyanosis. No icterus. No pallor. HEART: Regular S1 and S2. No murmur, rub or gallop. LUNGS: Clear to auscultate bilaterally. ABDOMEN: Soft, nontender and nondistended. Positive bowel sounds. No guarding, rebound or tenderness. CENTRAL NERVOUS SYSTEM: Grossly nonfocal. EXTREMITIES: Lower extremities without edema bilaterally. Urinary Catheter Management^: Ryan: Cath Placed During This Visit: yes, but has since been removed by the nurse Reason for Continuing Indwelling Catheter: Decision to DC Catheter Urinary Catheter Date of Insertion: 10/12/20 Urinary Catheter Time of Insertion: 10:45 Date Urinary Catheter Removed: 10/14/20 Time Urinary Catheter Discontinued: 02:23 Data : 10/14/20 05:06 10/14/20 05:06 A&P Assessment and plan (1) Complete heart block: Status post temporary pacemaker. Patient will going for permanent pacemaker placement today. Status: Acute (2) Syncope: No more syncope after temporary pacemaker placement Status: Acute Qualifiers: Syncope type: unspecified Qualified Code(s): R55 - Syncope and collapse (3) CAD (coronary artery disease): Stable. Resume Plavix post PCI. Stent was placed in proximal obtuse marginal 1 Status: Acute Qualifiers: Coronary Disease-Associated Artery/Lesion type: [place] artery [place] vs. transplanted heart: [place] heart Associated angina: angina presence unspecified Qualified Code(s): I25.10 - Atherosclerotic heart disease of [place] coronary artery without angina pectoris (4) HTN (hypertension): Stable. Continue current regimen. Status: Acute Qualifiers: Hypertension type: essential hypertension Qualified Code(s): I10 - Essential (primary) hypertension (5) Ischemic cardiomyopathy: Post PCI appeared to be stable. Ejection fraction 40%. Resume Plavix. Will resume carvedilol after permanent pacemaker placement. Status: Acute Additional A&P Information Right bundle branch block First-degree AV block Hyponatremia Elevated troponin Chronic kidney disease baseline creatinine ~1.4 Thank you for allowing me to participate in patient's care. Please feel free to call with questions or concerns. 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 transplanted heart: [place] heart Associated angina: angina presence unspecified HTN (hypertension) I10 Hypertension type: essential hypertension Ischemic cardiomyopathy I25.5
--- NOTE | 2020-10-14 12:47 | P.DS_ITS ---
Discharge Providers Date of Admission: 10/12/20 10:59 Date of Discharge: October 14, 2020 Attending Provider at Admission: Perfecto Garcia MD Attending Provider at Discharge: Adrián Mistry Primary Care Provider: Gregorio Cunningham DO Diagnoses at Discharge Discharge Diagnosis (1) Complete heart block: Status: Acute (2) Syncope: Status: Acute Qualifiers: Syncope type: unspecified Qualified Code(s): R55 - Syncope and collapse (3) CAD (coronary artery disease): Status: Acute Permanent problem details: Angiogram August 2019 demonstrated EF around 35%, LAD chronic occlusion, first obtuse marginal 60% stenosis, RCA ulcerated 90% stenosis which was stented Qualifiers: Coronary Disease-Associated Artery/Lesion type: [place] artery [place] vs. transplanted heart: [place] heart Associated angina: angina presence unspecified Qualified Code(s): I25.10 - Atherosclerotic heart disease of [place] coronary artery without angina pectoris (4) HTN (hypertension): Status: Acute Qualifiers: Hypertension type: essential hypertension Qualified Code(s): I10 - Essential (primary) hypertension (5) Ischemic cardiomyopathy: Status: Acute Reason for Visit Reason for Visit: SYNCOPE WHILE DRIVING Hospital Course Hospital Course Discharge diagnosis and problem list Syncope secondary to complete heart block. Status post permanent pacemaker placement. Medications are adjusted and the patient is cleared by the cardiology team. Coronary artery disease. Status post cardiac catheterization and OM stent placement. The patient is cleared by Dr. Griffin for discharge. The medications are adjusted. Counseling is provided regarding discharge medications and outpatient follow-ups. We discussed how important it is that he remains on all his medications including antiplatelet medications. He verbalized understanding and agreement. He was asked to come back to emergency room if he develops any new or similar symptoms. I also discussed with Dr. Griffin prior to discharge. Cardiomyopathy probably secondary to above. EF is 40%. Currently stable. No evidence of acute exacerbation. Mild aortic stenosis. Continue outpatient management with Dr. Griffin. Anemia. Stable. Outpatient monitoring. Hyponatremia. Stable. Outpatient monitoring. History of hypertension. Currently well controlled. Continue current meds as per Dr. Griffin. Dyslipidemia. Continue statin. COPD. No evidence of acute exacerbation. Physical Exam Narrative: EXAM NARRATIVE: The patient is awake alert oriented. No acute distress. Mood and affect are appropriate. Responses are adequate. Denies any active complaints. Denies any chest pain, shortness of breath, palpitations, dizziness or lightheadedness, weakness. No chills. No nausea or vomiting. Eager to be discharged home. Skin is warm and dry. Moist mucous membranes Neck supple. No JVD Lungs clear to auscultation bilaterally Heart S1, S2, regular Abdomen soft, nontender, bowel sounds are present Extremities no cyanosis or calf tenderness bilaterally Urinary Catheter Management^: Ryan: Cath Placed During This Visit: yes, but has since been removed by the nurse Reason for Continuing Indwelling Catheter: Decision to DC Catheter Urinary Catheter Date of Insertion: 10/12/20 Urinary Catheter Time of Insertion: 10:45 Date Urinary Catheter Removed: 10/14/20 Time Urinary Catheter Discontinued: 02:23 Discharge Data Data Completed and Pending: Completed Studies During Hospitalization Category Date Time Status CT head wo con* 7 0450 Stat Cat Scan 10/11/20 07:49 Completed XR cervical spine 3V* 77606 Stat Exams 10/11/20 07:48 Completed XR chest 1V [place]bias ble [id number] Routine Exams 10/14/20 06:00 Completed XR chest 1V [place] ble [id number] Stat Exams 10/11/20 07:50 Completed CV echo wo/w cont rast [id number] Routine Ultrasound 10/11/20 12:19 [place] [id number] Routin e Ultrasound 10/12/20 Completed US/CV paperwork R outine Ultrasound 10/11/20 Completed Pending at discharge Category Date Time Status PARKING TECHNICIAN request for service Routin e Exams 10/12/20 11:45 Taken Complete Blood Co unt w/Auto AM LABS Lab 10/15/20 04:00 Ordered Lipid Panel AM LA BS Lab 10/15/20 04:00 Ordered Magnesium AM LABS Lab 10/15/20 04:00 Ordered Renal Function Pa piyush AM LABS Lab 10/15/20 04:00 Ordered Labs from last 24 hours 10/14/20 10/14/20 05:06 05:06 WBC 10.3 H RBC 3.39 L Hgb 10.5 L Hct 31.6 L MCV 93.2 MCH 31.0 MCHC 33.2 RDW 13.1 Plt Count 193 MPV 10.7 H Neut % (Auto) 73.5 Lymph % (Auto) 10.3 [place] % (Auto) 6.3 Eos % (Auto) 9.1 Baso % (Auto) 0.5 Neut # (Auto) 7.55 Lymph # (Auto) 1.1 [place] # (Auto) 0.7 Eos # (Auto) 0.9 H Baso # (Auto) 0.1 Nucleated RBC % (a uto) 0 Nucleated RBCs # 0.0 Sodium 133 L Potassium 4.1 Chloride 105 Carbon Dioxide 19 L Anion Gap 13.1 BUN 17 Creatinine 1.2 GFR Calculation Not Reportable Glucose 90 Calculated Osmolal ity 277 L Calcium 8.5 Vitals: Last Vital Signs Temp 98.1 F 10/14/20 12:00 Pulse 70 10/14/20 12:00 Resp 19 H 10/14/20 12:00 BP 99/64 10/14/20 12:00 Pulse Ox 93 10/14/20 12:00 Discharge Plan Discharge Patient Disposition: Home Condition: Stable Prescriptions: Continued furosemide 40 mg tablet 40 mg PO DAILY Qty: 90 RF: 3 aspirin 81 mg Tablet,Delayed Release (Dr/Ec) 81 mg PO QAM RF: 0 levothyroxine [Synthroid] 75 mcg Tablet 75 mcg PO QAM RF: 0 spironolactone 25 mg tablet 25 mg PO QAM RF: 0 carvedilol 3.125 mg tablet 3.125 mg PO BID RF: 0 atorvastatin 40 mg Tablet 40 mg PO QAM Qty: 0 RF: 4 Changed losartan 50 mg tablet 25 mg PO QAM Qty: 30 RF: 4 clopidogrel 75 mg tablet 75 mg PO QAM Qty: 90 RF: 0 Discharge Orders: Discharge Order (Routine); Ordered 10/14/20 Ordered By: Francisco Griffin Referrals: Francisco Griffin MD [Physician] - Gregorio Cunningham DO [Primary Care Provider] - Discharge Diet: Cardiac and Low Salt Discharge Activity: Increase activity as tolerated and Limit activity as instructed Patient Instructions: Post Pacemaker - Kerry Activity Restrictions/Additional Instructions: Follow-up with pacemaker clinic and wound check in [address] Payne's office. Follow-up with Dr. Griffin in 4 to 6 weeks. Discharge Attestations Time Spent in Discharge Care*: less than 30 min Quality Metrics Clinical Quality Measures During this hospital stay, did patient experience: None Coding Level of Care Code Acute Chg FW DC note Diagnoses Complete heart block I44.2 Syncope R55 Syncope type: unspecified CAD (coronary artery disease) I25.10 Coronary Disease-Associated Artery/Lesion type: [place] artery [place] vs. transplanted heart: [place] heart Associated angina: angina presence unspecified HTN (hypertension) I10 Hypertension type: essential hypertension Ischemic cardiomyopathy I25.5
== END 2020-10-14 13:30 | disposition home or self-care (01) | DRG 243 ==
LOC: ER 13:20 → CSU 14:51 → ICU 10-12 10:27
PROVIDERS: Internal Medicine Cardiovascular Disease; Thoracic Surgery (Cardiothoracic Vascular Surgery); Admitting Provider Internal Medicine; Emergency Provider Family Medicine; PCP Electrodiagnostic Medicine; Visit Provider Internal Medicine
PROC: 0JH606Z Insertion of Pacemaker, Dual Chamber into Chest Subcutaneous Tissue and Fascia, Open Approach (ICD-10-PCS; principal; 2020-10-13 08:50)
DX: I44.2 Atrioventricular block, complete (principal); E87.1 Hypo-osmolality and hyponatremia; R55 Syncope and collapse; R00.1 Bradycardia, unspecified; I25.5 Ischemic cardiomyopathy; I25.10 Atherosclerotic heart disease of native coronary artery without angina pectoris; I35.0 Nonrheumatic aortic (valve) stenosis; J43.9 Emphysema, unspecified; I12.9 Hypertensive chronic kidney disease with stage 1 through stage 4 chronic kidney disease, or unspecified chronic kidney disease; N18.1 Chronic kidney disease, stage 1; E78.5 Hyperlipidemia, unspecified; E03.9 Hypothyroidism, unspecified; F17.210 Nicotine dependence, cigarettes, uncomplicated; Z95.5 Presence of coronary angioplasty implant and graft; Z79.82 Long term (current) use of aspirin; Z79.02 Long term (current) use of antithrombotics/antiplatelets; Z85.828 Personal history of other malignant neoplasm of skin; I25.2 Old myocardial infarction
CPT/HCPCS: 33210; 36415; 51702; 70450; 71045; 72040; 76000; 80048; 80053; 81003; 82550; 83735; 84443; 84484; 85025; 85347; 85730; 93005; 93454; 93970; 93971; 96365; 96367; 96372; 96375; 99285; C1725; C1769; C1779; C1786; C1874; C1887; C1894; C1898; C8929; C9600; G0378; J0461; J0690; J1265; J1644; J1650; J2250; J2370; J2405; J2704; J3010; J7030; J7050; Q9956; Q9967

== ENCOUNTER → 2020-10-19 12:52 | Outpatient (BNVA) | payer MEDICARE, SELFPAY | PROVIDERS: PCP Electrodiagnostic Medicine; Visit Provider Nurse Practitioner Family | DX: I25.10 Atherosclerotic heart disease of native coronary artery without angina pectoris (principal); Z95.0 Presence of cardiac pacemaker | CPT/HCPCS: 36415; 80048 ==

== ENCOUNTER → 2020-10-30 10:41 | Outpatient (BNVA) | payer MEDICARE, SELFPAY | PROVIDERS: PCP Electrodiagnostic Medicine; Visit Provider Internal Medicine Cardiovascular Disease | DX: I25.10 Atherosclerotic heart disease of native coronary artery without angina pectoris (principal); I25.5 Ischemic cardiomyopathy; N18.1 Chronic kidney disease, stage 1 | CPT/HCPCS: 80048 ==

== ENCOUNTER 2021-04-09 21:27 | Inpatient (IN) | payer MEDICARE, SELFPAY ==
[2021-04-09 21:30] VITALS: PULSE 89; RESP 20; O2SAT 97; O2SAT 98
--- NOTE | 2021-04-09 21:32 | XRR_ITS ---
PROCEDURE INFORMATION: Exam: XR Chest Exam date and time: 04/09/2021 9:32 PM Age: 75 years old Clinical indication: Device placement; Ett placement (vent status); Patient HX: Et/og placement; Additional info: Confirm tube placement TECHNIQUE: Imaging protocol: XR of the chest. Views: 1 view. COMPARISON: CR XR chest 1V portable [id number] 10/14/2020 5:03 AM FINDINGS: Tubes, catheters and devices: There is a dual-lead cardiac pacer via left subclavian approach. Findings are stable. Interval placement of an enteric tube with the tip the GE junction and the proximal port in the lower esophagus. Recommend advancing the tube 8-9 cm. Interval placement of an endotracheal tube with the tip 5.7 cm above the marie. Lungs: Ill-defined interstitial and alveolar opacities in the right and left lower lobe suspicious for pneumonia, including atypical organisms. Pleural spaces: No pleural effusion. No pneumothorax. Heart/Mediastinum: Stable mild enlargement of the cardiac silhouette. Mediastinal contours are unremarkable. Vasculature: Stable vascular calcifications in the aorta. Bones/joints: Unremarkable for age. XR/XR chest 1V portable [id number] IMPRESSION: 1. Ill-defined interstitial and alveolar opacities in the right and left lower lobe suspicious for pneumonia, including atypical organisms. Recommend clinical correlation. Recommend followup chest x-ray to ensure resolution. 2. Interval placement of an enteric tube with the tip the GE junction and the proximal port in the lower esophagus. Recommend advancing the tube 8-9 cm. 3. Interval placement of an endotracheal tube with the tip 5.7 cm above the marie. 4. Incidental/nonacute findings are listed in the report.
--- NOTE | 2021-04-09 21:33 | ECG_ITS ---
[facility] Test Date: 2021-04-09 Pat Name: Juarez Dlegado Department: Room: EDIP Gender: Male Supervisor Color Making: : 1945 Requested By: Archie Perry Order Number: [id number] Reading MD: SIMA GUZMÁN Measurements Intervals [place] Rate: 92 P: 12 AK: 128 QRS: -70 QRSD: 151 T: 97 QT: 282 QTc: 349 Interpretive Statements SINUS RHYTHM INTRAVENTRICULAR CONDUCTION DELAY [130+ ms QRS DURATION] LATERAL MYOCARDIAL INFARCTION , PROBABLY RECENT [40+ ms Q WAVE AND/OR ST/T ABNORMALITY IN I/aVL/V5/V6] INFERIOR MYOCARDIAL INFARCTION , POSSIBLY ACUTE [40+ ms Q WAVE AND/OR ST/T ABNORMALITY IN II/aVF] ACUTE [place] Compared to ECG 10/12/2020 11:06:51 Intraventricular conduction delay now present Right bundle-branch block no longer present Left anterior fascicular block no longer present Myocardial infarct finding still present Electronically Signed On 04-10-2021 20:03:11 CDT by SIMA GUZMÁN [email or web address]/NU/[id number] f
[2021-04-09 21:36] VITALS: BP 131/78; PULSE 98; RESP 20; TEMP 36.4; O2SAT 97; BMI 26.4
[2021-04-09 21:47] LABS: Basophils # 0.1 10^3/uL (0.0-0.1); Basophils % 0.8 %; Eosinophils # 1.6 10^3/uL (0.0-0.8); Eosinophils % 14.2 %; Hematocrit 33.7 % (42.0-52.0); Hemoglobin 10.8 g/dL (11.7-16.6); Lymphocytes # 3.5 10^3/uL (0.8-4.8); Lymphocytes % 31.6 %; Mean Corpuscular Hemoglobin 30.3 pg (28.0-34.0); Mean Corpuscular Volume 94.7 fl (80-94); Monocytes # 0.8 10^3/uL (0.2-0.9); Monocytes % 7.1 %; Neutrophils % 45.6 %; Nucleated Red Blood Cells % 0 %; Platelet Count 260 10^3/cmm (130-400); Red Blood Count 3.56 10^6/uL (4.1-5.3); Red Cell Distribution Width 13.4 % (12.1-15.1); White Blood Count 11.2 10^3/uL (4.0-10.0)
[2021-04-09 21:54] LABS: Troponin(5th) Baseline 36 ng/L (0-15)
[2021-04-09 21:55] LABS: Lactate (Lactic Acid level) 1.2 mmol/L (0.5-2.2)
[2021-04-09] MEDS: FUROsemide 10 mg/mL SDV 10mL 80 MG IVP (22:05)
[2021-04-09] MEDS: nitroglycerin drip 50 MG/250 ML PREMIX IV (22:06)
[2021-04-09] MEDS: propofol 1,000 MG/100 ML INJ 10.32 MG IV (22:07)
[2021-04-09 22:15] LABS: Alanine Aminotransferase 9 U/L (0-41); Albumin Level 3.9 g/dL (3.5-5.2); Alkaline Phosphatase 83 IU/L (40-130); Aspartate Amino Transferase 14 U/L (0-40); Blood Urea Nitrogen 27 mg/dL (8-23); Calcium 8.3 mg/dL (8.5-10.5); Carbon Dioxide 19 mmol/L (22-29); Chloride 98 mmol/L (98-107); Globulin 2.4 g/dL (1.3-4.6); Glucose 208 mg/dL (65-115); Lipase 69 U/L (13-60); Osmolality Calculated 281 mOsm/kg (285-295); Sodium 130 mmol/L (136-145); Total Bilirubin 0.2 mg/dL (0.15-1.2); Total Protein 6.3 g/dL (6.6-8.7)
[2021-04-09 22:18] LABS: ABG PCO2 49.5 mmHg (35-45); ABG PH Result 7.23 (7.35-7.45); Arterial Blood Gas Hematocrit 35.9 % (42-52); Blood Gas Allen Test Pos; Blood Gas Sample Type Arterial; HCO3 ABG 20.6 mmol/L (22-26); PO2 ABG 99.3 mmHg (80.0-100.0)
[2021-04-09 22:19] VITALS: BP 123/65; PULSE 79; O2SAT 94
[2021-04-09 22:20] LABS: Blood Gas Sample Site Radial, right; Oxygen Device VENT
[2021-04-09 22:24] LABS: SARS Covid-2 Antigen Negative (Negative)
--- NOTE | 2021-04-09 22:26 | W.ED.GENADLT ---
HPI - General Adult General: Chief complaint: ER Hold Stated complaint: RESP. DITRESS Time Seen by Provider: 04/09/21 21:32 History of Present Illness: HPI narrative: CC: Dyspnea HPI: This is a [75] yo full-code patient w/ hx of CHF, AICD dependence presenting BIBA for acute onset of respiratory distress and increased work of breathing. En route patient had signifciant increased work of breathing, satting at 87%, could not tolerate bipap and was intubated en route. Patient was placed on 15L of NRB with persistent increased of breathing. Rest of hx of limited given clinical status. Onset: unknown Duration: ongoing Location: home Severity: severe Review of Systems Narrative: Constitutional: No fever, no chills. HEENT: No vision changes CV: No chest pain, no palpitations PULM: No productive cough, +dyspnea GI: No abdominal pain, no N/V/D. : No dysuria MSKEL: No muscle pain, +leg swelling SKIN: No new rashes, no lesions. NEURO: No headache, no focal weakness. HEME: No visible bruises PSYCH: Normal mood PFSH ED PFSH: Medical History Aortic stenosis Echo 10/01 with mild aortic stenosis, MEGHANA 1.6 cm2, mean gradient 11.6 mmHg, peak velocity 2.4 m/sec CAD (coronary artery disease) Angiogram August 2019 demonstrated EF around 35%, LAD chronic occlusion, first obtuse marginal 60% stenosis, RCA ulcerated 90% stenosis which was stented Chronic kidney disease COPD (chronic obstructive pulmonary disease) Erectile dysfunction HLD (hyperlipidemia) HTN (hypertension) Hypothyroidism Ischemic cardiomyopathy Squamous cell carcinoma skin of arm Tobacco abuse Surgical History Pacemaker Medtronic S/P PTCA (percutaneous transluminal coronary angioplasty) August 2019 Family History Brother CAD (coronary artery disease) Social History Smoking and tobacco status: current every day smoker Alcohol intake: current Alcohol intake frequency: few times a month Physical Exam Narrative: EXAM NARRATIVE: Constitutional: In moderate distress Head: Atraumatic Eyes: PERRL, conjunctiva without injection ENT: dry membrane moist NECK: Supple without lymphadenopathy, moderate JVD LUNGS: Crackles diffusely CV: Sinus tachycardia ABDOMEN: Soft, occasional abdominal breathing EXTREMITY: Normal ROM, no pitting edema, no camille sign SKIN: No rash or erythema NEURO: Intbuated and sedated PSYCH: unable to assess Course Vital Signs: Vital signs: Vital Signs Temperature 97.2 F L 04/10/21 22:00 Pulse Rate 60 04/11/21 04:00 Respiratory Rate 16 04/11/21 04:00 Blood Pressure 96/49 04/11/21 04:00 Pulse Oximetry 94 04/11/21 04:00 MDM - General Adult MDM Narrative: Medical decision making narrative: [75]yo pt w/ hx of CHF on AICD and uncontrolled HTN presenting to the ED with dyspnea and increased work of breathing in the setting of hypertensive emergency concerning acute flash pulmonary edema. Patient was intubated prior to arrival. Workup: ECG, CBC, BMP, Troponin, BNP, CXR, and VBG Based on history, exam and findings, presentation most consistent with acute on chronic heart failure. Low suspicion for PNA, ACS, tamponade, aortic dissection. EKG: No signs of STEMI and no evidence of Brugada?s sign, delta wave, epsilon wave, significantly prolonged QTc, or malignant arrhythmia as source of exacerbation. Probnp mildly elevated at 1709 and Troponin at 36. CXR: Possible PNA. Intervention: Lasix 80mg, nitroglycerin gtt, and sedation medicine, ceftriaxone and azithromycin. [11:30pm] Case discussed with Dr. Kuo who agrees with plan for ICU admission for acute decompensated heart failure and possible PNA in the setting of hypertensive emergency. OG tube advanced 8cm. BP soft but will defer pressor support to the next team. The source of soft BP likely sedation and vent setting, which were adjusted. Disposition: ICU Lab Data: Labs: Lab Results 04/09/21 04/09/21 04/09/21 21:31 21:31 21:31 WBC 11.2 10^3/uL H 10 ^3/uL (4.0-10.0) RBC 3.56 10^6/uL L 10 ^6/uL (4.1-5.3) Hgb 10.8 g/dL L g/dL (11.7-16.6) Hct 33.7 % L % (42.0-52.0) MCV 94.7 fl H fl (80-94) MCH 30.3 pg pg (28.0-34.0) MCHC 32.0 g/dL g/dL (30.0-36.0) RDW 13.4 % % (12.1-15.1) Plt Count 260 10^3/cmm 10^3 /cmm (130-400) MPV 11.0 fL H fL (7.4-10.4) Neut % (Auto) 45.6 % % Lymph % (Auto) 31.6 % % [place] % (Auto) 7.1 % % Eos % (Auto) 14.2 % % Baso % (Auto) 0.8 % % Neut # (Auto) 5.10 10^3/uL 10^3 /uL (1.8-7.7) Lymph # (Auto) 3.5 10^3/uL 10^3/ uL (0.8-4.8) [place] # (Auto) 0.8 10^3/uL 10^3/ uL (0.2-0.9) Eos # (Auto) 1.6 10^3/uL H 10^ 3/uL (0.0-0.8) Baso # (Auto) 0.1 10^3/uL 10^3/ uL (0.0-0.1) Nucleated RBC % (a uto) 0 % % Nucleated RBCs # 0.0 /100WBC /100W BC Specimen Type Sample Site ABG pH ABG pCO2 ABG pO2 ABG HCO3 ABG Base Excess Jae Test Hematocrit O2 Delivery Device Mechanical Rate FiO2 PEEP Group Social Worker ID Sodium 130 mmol/L L mmol /L (136-145) Potassium 4.0 mmol/L mmol/L (3.5-5.1) Chloride 98 mmol/L mmol/L (98-107) Carbon Dioxide 19 mmol/L L mmol/ L (22-29) Anion Gap 17.0 (5-19) BUN 27 mg/dL H mg/dL (8-23) Creatinine 1.6 mg/dL H mg/dL (0.7-1.2) GFR Calculation Not Reportable Glucose 208 mg/dL H mg/dL (65-115) Calculated Osmolal ity 281 mOsm/kg L mOs m/kg (285-295) Lactate 1.2 mmol/L mmol/L (0.5-2.2) Calcium 8.3 mg/dL L mg/dL (8.5-10.5) Total Bilirubin 0.2 mg/dL mg/dL (0.15-1.2) AST 14 U/L U/L (0-40) ALT 9 U/L U/L (0-41) Alkaline Phosphata se 83 IU/L IU/L (40-130) Troponin T Baselin e Troponin T 120 Min [place] Delta Troponin T NT-Pro-B Natriuret Pep 1709 pg/mL H pg/m L (0-125) Total Protein 6.3 g/dL L g/dL (6.6-8.7) Albumin 3.9 g/dL g/dL (3.5-5.2) Globulin 2.4 g/dL g/dL (1.3-4.6) Lipase 69 U/L H U/L (13-60) SARS-CoV-2 Ag (Rap id) 04/09/21 04/09/21 04/09/21 21:31 21:36 22:07 WBC RBC Hgb Hct MCV MCH MCHC RDW Plt Count MPV Neut % (Auto) Lymph % (Auto) [place] % (Auto) Eos % (Auto) Baso % (Auto) Neut # (Auto) Lymph # (Auto) [place] # (Auto) Eos # (Auto) Baso # (Auto) Nucleated RBC % (a uto) Nucleated RBCs # Specimen Type Arterial Sample Site Radial, right ABG pH 7.23 L (7.35-7.45) ABG pCO2 49.5 mmHg H mmHg (35-45) ABG pO2 99.3 mmHg mmHg (80.0-100.0) ABG HCO3 20.6 mmol/L L mmo l/L (22-26) ABG Base Excess -7.0 mmol/L L mmo l/L (-2.0-2.0) Jae Test Pos Hematocrit 35.9 % L % (42-52) O2 Delivery Device Vent Mechanical Rate 20.0 FiO2 60.0 % % PEEP 5.0 cmH20 cmH20 Group Social Worker ID Rieri Sodium Potassium Chloride Carbon Dioxide Anion Gap BUN Creatinine GFR Calculation Glucose Calculated Osmolal ity Lactate Calcium Total Bilirubin AST ALT Alkaline Phosphata se Troponin T Baselin e 36 ng/L H ng/L (0-15) Troponin T 120 Min [place] Delta Troponin T NT-Pro-B Natriuret Pep Total Protein Albumin Globulin Lipase SARS-CoV-2 Ag (Rap id) Negative (Negative) 04/09/21 23:21 WBC RBC Hgb Hct MCV MCH MCHC RDW Plt Count MPV Neut % (Auto) Lymph % (Auto) [place] % (Auto) Eos % (Auto) Baso % (Auto) Neut # (Auto) Lymph # (Auto) [place] # (Auto) Eos # (Auto) Baso # (Auto) Nucleated RBC % (a uto) Nucleated RBCs # Specimen Type Sample Site ABG pH ABG pCO2 ABG pO2 ABG HCO3 ABG Base Excess Jae Test Hematocrit O2 Delivery Device Mechanical Rate FiO2 PEEP Group Social Worker ID Sodium Potassium Chloride Carbon Dioxide Anion Gap BUN Creatinine GFR Calculation Glucose Calculated Osmolal ity Lactate Calcium Total Bilirubin AST ALT Alkaline Phosphata se Troponin T Baselin e Troponin T 120 Min [place] 47.37 ng/L H ng/L (0-15) Delta Troponin T 11.37 ABS# H* ABS # (0-10) NT-Pro-B Natriuret Pep Total Protein Albumin Globulin Lipase SARS-CoV-2 Ag (Rap id) Imaging Data^: Other Imaging: Radiologist's impression: [address] [id number] ReportSigned with Addenda Patient: Juarez Delgado #: [id number]: 7Acct#:[id number]/Sex: 75 / MADM Date: 04/09/21Loc: ERRoom/Bed:Attending Dr: Ordering Provider/Ordering MD: Archie Perry MD Date of Service: 04/09/21 Procedure(s): XR chest 1V portable [id number] Accession Number(s): [id number] Report Number: [id number] ADDENDUM XR/XR chest 1V portable [id number] Urgent results were discussed with ARCHIE Lira on 04/09/2021 at 10:42 PM CDT. Addendum Dictated By: Courtney Woods MDAddendum Signed By: Courtney Woods MDSigned Date/Time:04/09/21 2244Addendum Cosigned By: PROCEDURE INFORMATION: Exam: XR Chest Exam date and time: 04/09/2021 9:32 PM Age: 75 years old Clinical indication: Device placement; Ett placement (vent status); Patient HX: Et/og placement; Additional info: Confirm tube placement TECHNIQUE: Imaging protocol: XR of the chest. Views: 1 view. COMPARISON: CR XR chest 1V portable [id number] 10/14/2020 5:03 AM FINDINGS: Tubes, catheters and devices: There is a dual-lead cardiac pacer via left subclavian approach. Findings are stable. Interval placement of an enteric tube with the tip the GE junction and the proximal port in the lower esophagus. Recommend advancing the tube 8-9 cm. Interval placement of an endotracheal tube with the tip 5.7 cm above the marie. Lungs: Ill-defined interstitial and alveolar opacities in the right and left lower lobe suspicious for pneumonia, including atypical organisms. Pleural spaces: No pleural effusion. No pneumothorax. Heart/Mediastinum: Stable mild enlargement of the cardiac silhouette. Mediastinal contours are unremarkable. Vasculature: Stable vascular calcifications in the aorta. Bones/joints: Unremarkable for age. XR/XR chest 1V portable [id number] IMPRESSION: 1. Ill-defined interstitial and alveolar opacities in the right and left lower lobe suspicious for pneumonia, including atypical organisms. Recommend clinical correlation. Recommend followup chest x-ray to ensure resolution. 2. Interval placement of an enteric tube with the tip the GE junction and the proximal port in the lower esophagus. Recommend advancing the tube 8-9 cm. 3. Interval placement of an endotracheal tube with the tip 5.7 cm above the marie. 4. Incidental/nonacute findings are listed in the report. Dictated By:Courtney Woods MDSigned By:Courtney Woods MDSigned Date/Time:04/09/21 2232DD/ Critical Care Time Critical Care Time: Critical Care Time: Yes Total Critical Care Time: 39 Attestation: Given the high probability of imminent or life threatening deterioration of the patient?s condition without intervention, the patient was immediately assessed by myself and the nurse, and cardiac monitoring initiated. The patient was also placed on oxygen and continuous pulse oximetry initiated. During the course of the patient?s stay, I spent a considerable amount of time at the bedside performing serial re-evaluations of the patient?s hemodynamic and clinical status because of the recognized potential threat to life or limb in this condition. Clinical management of this patient involved high complexity decision making to assess, manipulate, and support vital organ system failure. I then had a chance to review all of the available laboratory and radiographic studies obtained today, and I also reviewed old records available to me at the time. Sequential vital signs were obtained. Critical care time noted below was time spent engaged in work directly related to the individual patient?s care, not including time performing procedures; however it does include time spent at the immediate bedside or elsewhere on the floor or unit. TOTAL CRITICAL CARE TIME ELAPSED: 39 minutes. BODY SYSTEM AT HIGHEST RISK: Pulmonary Discharge Plan Discharge Patient Disposition: Admitted As Inpatient Admit Provider: Dina Kuo Clinical Impression: Hypertensive emergency, CHF exacerbation Pneumonia Qualifiers: Pneumonia type: due to unspecified organism Laterality: bilateral Lung location: lower lobe of lung Qualified Code(s): J18.9 - Pneumonia, unspecified organism Condition: Stable Coding Level of Care Code ED Astronomy Instructor for Kuldeep Wright
--- NOTE | 2021-04-09 22:32 | PC.NURSE ---
pt states she would like to be notified of transfer. states one of the last times he was here pt was transferred without an update to her.
[2021-04-09 22:33] VITALS: BP 113/60; PULSE 70; O2SAT 92
[2021-04-09 22:43] LABS: NT Pro B Type Natriuretic Pept 1709 pg/mL (0-125)
[2021-04-09 23:35] VITALS: BP 125/62; PULSE 71; RESP 21; O2SAT 96
[2021-04-09] MEDS: cefTRIAXone 1,000 MG in sodium chloride 0.9% (plus) 50 ML 100 MG IV (23:38)
[2021-04-09 23:48] LABS: Troponin 5 2HR 47.37 ng/L (0-15)
[2021-04-09 23:49] LABS: Troponin 5 2HR Delta 11.37 ABS# (0-10)
[2021-04-10] VITALS (221 sets, daily range): BP systolic 76–138; BP diastolic 44–103; PULSE 59–76; RESP 12–35; TEMP 36.1–36.5; O2SAT 89–100; BMI 26.4
[2021-04-10] MEDS: azithromycin 500 MG in sodium chloride 0.9% 250 ML 250 MG IV ×2 (00:10→22:34)
--- NOTE | 2021-04-10 00:33 | PC.NURSE ---
MU alerted to latest set of vitals. orders given to lower propfol again and leave nitro as is. current BP 77/46
--- NOTE | 2021-04-10 03:18 | PC.NURSE ---
Verbal order from Dr. Perry to stop Levophed.
[2021-04-10 03:22] LABS: Basophils % 0.2 %; Eosinophils # 0.1 10^3/uL (0.0-0.8); Eosinophils % 0.5 %; Hematocrit 29.3 % (42.0-52.0); Hemoglobin 9.8 g/dL (11.7-16.6); Lymphocytes # 0.7 10^3/uL (0.8-4.8); Lymphocytes % 7.2 %; Mean Corpuscular HGB Conc 33.4 g/dL (30.0-36.0); Mean Corpuscular Hemoglobin 30.5 pg (28.0-34.0); Mean Corpuscular Volume 91.3 fl (80-94); Mean Platelet Volume 10.1 fL (7.4-10.4); Monocytes # 0.5 10^3/uL (0.2-0.9); Neutrophils # 8.46 10^3/uL (1.8-7.7); Neutrophils % 86.4 %; Nucleated Red Blood Cells % 0 %; Platelet Count 218 10^3/cmm (130-400); Red Blood Count 3.21 10^6/uL (4.1-5.3); Red Cell Distribution Width 13.6 % (12.1-15.1); White Blood Count 9.8 10^3/uL (4.0-10.0)
--- NOTE | 2021-04-10 03:33 | ECG_ITS ---
[facility] Test Date: 2021-04-10 Pat Name: Juarez Delgado Department: Room: EDIP Gender: Male Fitness/Wellness Director: : [id number] Requested By: Archie Perry Order Number: [id number] Reading MD: SIMA GUZMÁN Measurements Intervals [place] Rate: 59 P: 158 MT: 182 QRS: -87 QRSD: 152 T: 0 QT: 304 QTc: 303 Interpretive Statements ELECTRONIC ATRIAL PACEMAKER ELECTRONIC VENTRICULAR PACEMAKER Compared to ECG 04/09/2021 21:31:26 ST (T wave) deviation now present Sinus rhythm no longer present Intraventricular conduction delay no longer present Myocardial infarct finding no longer present Electronically Signed On 04-10-2021 20:03:55 CDT by SIMA GUZMÁN [email or web address]
[2021-04-10 03:48] LABS: Troponin 5 6HR 79.76 ng/L (0-15)
[2021-04-10 03:55] LABS: Alanine Aminotransferase 8 U/L (0-41); Albumin Level 3.6 g/dL (3.5-5.2); Alkaline Phosphatase 75 IU/L (40-130); Anion Gap 15.1 (5-19); Aspartate Amino Transferase 12 U/L (0-40); Blood Urea Nitrogen 28 mg/dL (8-23); Calcium 8.2 mg/dL (8.5-10.5); Carbon Dioxide 19 mmol/L (22-29); Chloride 99 mmol/L (98-107); Globulin 2.3 g/dL (1.3-4.6); Glucose 149 mg/dL (65-115); Osmolality Calculated 276 mOsm/kg (285-295); Potassium 4.1 mmol/L (3.5-5.1); Sodium 129 mmol/L (136-145); Total Bilirubin 0.2 mg/dL (0.15-1.2); Total Protein 5.9 g/dL (6.6-8.7); Troponin 5 6HR Delta 43.76 ng/L (0-12)
--- NOTE | 2021-04-10 05:07 | PM.HP ---
Providers/Chief Complaint Admitting Physician: Dina Kuo MD Primary Care Provider: Gregorio Cunningham DO Chief Complaint: RESP. DISTRESS History of Present Illness Juarez Delgado is a 75 year old male who presented to the emergency room with respiratory distress. He was brought in by ambulance intubated so history is limited. According to the emergency room physician, EMS reported that patient was in significant respiratory distress in the field. He was also hypertensive with systolic pressure greater than 200 initially. He was tried on BiPAP but ultimately intubated in route due to persistent hypoxemia and degree of distress. On arrival here systolic pressures were in the 120s. He received a dose of Lasix and has had more than a liter out since then. He has a known history of coronary artery disease with prior intervention, ischemic cardiomyopathy with an ejection fraction around 35% on a chronic ARB Per available records, mild aortic stenosis with valve area of 1.6 cm and mean gradient of 11.6 mmHg as well as COPD. He had a pacemaker placed earlier this year. He does have known hypertension and hyperlipidemia as well. In review of records does not generally show hypertensive emergency as described by EMS at this time. While in the emergency room he is actually had low normal blood pressures and occasionally hypotension. He was initially put on nitroglycerin drip that later had to be stopped. He was transiently on some Levophed. Blood pressures improved with adjustments in his sedation. Review of old records indicates he has had prior intubations for what was described as acute pulmonary edema. No further information is currently available regarding recent history. No reports of chest pain described. 2-hour troponin with a delta of 11. Twelve-lead EKG with paced rhythm and some ST depression in leads I and aVL. Rapid Covid antigen was negative. Review of Systems General: Reports: ROS unobtainable due to endotracheal tube and ROS unobtainable due to medical condition Medications/Allergies Home Medications Medication Instructions Recorded Confirmed Last Taken Type aspirin 81 mg PO QAM 08/25/19 11/27/20 10/11/20 History levothyroxine [Synthroid] 75 mcg PO QAM 08/25/19 11/27/20 10/11/20 History carvedilol 3.125 mg PO BID 10/11/20 11/27/20 10/11/20 History spironolactone 25 mg PO QAM 10/11/20 11/27/20 10/11/20 History atorvastatin 40 mg PO QAM #0 tab 10/14/20 11/27/20 10/11/20 Rx furosemide 40 mg tablet 40 mg PO DAILY PRN tab 11/27/20 Unknown History nitroglycerin 0.4 mg sublingual 0.4 mg SUBLINGUAL Q5M PRN #25 tab 11/27/20 11/27/20 Unknown Rx tablet clopidogrel 75 mg tablet 75 mg PO QAM #90 tab 02/19/21 Unknown Rx cetirizine [Zyrtec] 10 mg PO DAILY 04/10/21 04/10/21 Unknown History losartan 25 mg PO QAM 04/10/21 04/10/21 Unknown History Allergies Allergy/AdvReac Type Severity Reaction Status Date / Time No Known Allergies Allergy Verified 04/10/21 08:00 Additional Medication Information Unable to confirm current medications. Review of external records shows that most medications have been filled within the past two months with the exception of Lasix that was last filled January 06. Prescriptions for everything except for losartan and nitroglycerin were for 90 days. PFSH Acute PFSH: Medical History (Updated 04/10/21 @ 08:11 by Dina Kuo MD) Aortic stenosis Echo 10/01 with mild aortic stenosis, [place] 1.6 cm2, mean gradient 11.6 mmHg, peak velocity 2.4 m/sec CAD (coronary artery disease) Angiogram August 2019 demonstrated EF around 35%, LAD chronic occlusion, first obtuse marginal 60% stenosis, RCA ulcerated 90% stenosis which was stented Chronic kidney disease COPD (chronic obstructive pulmonary disease) Erectile dysfunction HLD (hyperlipidemia) HTN (hypertension) Hypothyroidism Ischemic cardiomyopathy Squamous cell carcinoma skin of arm Tobacco abuse Surgical History (Updated 04/10/21 @ 05:25 by Dina Kuo MD) Pacemaker Medtronic S/P PTCA (percutaneous transluminal coronary angioplasty) August 2019 Family History Brother CAD (coronary artery disease) Social History (Updated 04/10/21 @ 05:16 by Dina Kuo MD) Smoking and tobacco status: current every day smoker Alcohol intake: current Alcohol intake frequency: few times a month Substance/Drug Use: unknown Supplemental PFSH Information: Unable to review past medical social and family history with patient due to current medical condition Vitals/I&O/Wt Last Vital Signs Temp 97.6 F 04/09/21 21:36 Pulse 60 04/10/21 05:01 Resp 13 04/10/21 05:00 BP 89/52 04/10/21 05:01 Pulse Ox 100 04/10/21 05:01 04/09/21 04/09/21 04/10/21 14:59 22:59 06:59 Intake Total 368.675 / 368.675 Balance 368.675 / 368.675 Weight last 48 hrs Weight 88.451 kg Physical Exam Narrative: EXAM NARRATIVE: Constitutional: Intubated, sedated, will move around with stimulus but not opening eyes or following commands HEENT: Normocephalic, pupils are equal bilaterally, conjunctive are not injected, nasopharynx is clear, oropharynx with moist mucous membranes Neck: Supple without lymphadenopathy Respiratory: Clear to auscultation bilaterally time of my evaluation without any rales wheezes or rhonchi noted Cardiovascular: Regular rhythm, no murmurs noted, no jugular venous distention at the time of my evaluation, 1+ pulses x4 Abdomen: Soft, nondistended, positive bowel sounds, no apparent tenderness : Normal external genitalia, Ryan noted Extremities: Trace pitting edema bilaterally, feet are cool to touch but with brisk capillary refill, no mottling Skin: Some scattered bruises to upper extremities at sites of blood draws, some abrasions to the lower extremities, minor, no large bruises Neuro: Moves all 4 extremities to stimuli, toes downgoing Psych: Sedated Urinary Catheter Management^: Ryan: Cath Placed During This Visit: yes Urinary Catheter Date of Insertion: 04/09/21 Urinary Catheter Time of Insertion: 21:45 Data : 04/10/21 03:17 04/10/21 03:17 Micro: Microbiology 04/09/21 23:21 Blood Culture - Preliminary Blood SPECIMEN COLLECTED 04/09/21 22:15 Blood Culture - Preliminary Blood SPECIMEN COLLECTED Other data: Laboratory Results WBC 9.8 10^3/uL (4.0-10.0) 04/10/21 03:17 RBC 3.21 10^6/uL (4.1-5.3) L 04/10/21 03:17 Hgb 9.8 g/dL (11.7-16.6) L 04/10/21 03:17 Hct 29.3 % (42.0-52.0) L 04/10/21 03:17 MCV 91.3 fl (80-94) 04/10/21 03:17 MCH 30.5 pg (28.0-34.0) 04/10/21 03:17 MCHC 33.4 g/dL (30.0-36.0) 04/10/21 03:17 RDW 13.6 % (12.1-15.1) 04/10/21 03:17 Plt Count 218 10^3/cmm (130-400) 04/10/21 03:17 MPV 10.1 fL (7.4-10.4) 04/10/21 03:17 Neut % (Auto) 86.4 % 04/10/21 03:17 Lymph % (Auto) 7.2 % 04/10/21 03:17 [place] % (Auto) 5.0 % 04/10/21 03:17 Eos % (Auto) 0.5 % 04/10/21 03:17 Baso % (Auto) 0.2 % 04/10/21 03:17 Neut # (Auto) 8.46 10^3/uL (1.8-7.7) H 04/10/21 03:17 Lymph # (Auto) 0.7 10^3/uL (0.8-4.8) L 04/10/21 03:17 [place] # (Auto) 0.5 10^3/uL (0.2-0.9) 04/10/21 03:17 Eos # (Auto) 0.1 10^3/uL (0.0-0.8) 04/10/21 03:17 Baso # (Auto) 0.0 10^3/uL (0.0-0.1) 04/10/21 03:17 Nucleated RBC % (auto) 0 % 04/10/21 03:17 Nucleated RBCs # 0.0 /100WBC 04/10/21 03:17 Specimen Type Arterial 04/10/21 05:25 Sample Site Radial, right 04/10/21 05:25 ABG pH 7.34 (7.35-7.45) L 04/10/21 05:25 ABG pCO2 39.0 mmHg (35-45) 04/10/21 05:25 ABG pO2 82.6 mmHg (80.0-100.0) 04/10/21 05:25 ABG HCO3 20.8 mmol/L (22-26) L 04/10/21 05:25 ABG Base Excess -4.7 mmol/L (-2.0-2.0) L 04/10/21 05:25 Jae Test Pos 04/10/21 05:25 Hematocrit 30.5 % (42-52) L 04/10/21 05:25 Hgb O2 Saturation 96.2 % (95-100) 04/10/21 05:25 Carboxyhemoglobin 1.3 %THgb (0.4-20.1) 04/10/21 05:25 Methemoglobin < 0.0 % (0.4-1.5) L 04/10/21 05:25 Total Hemoglobin 10.0 g/dL (14-18) L 04/10/21 05:25 O2 Delivery Device Vent 04/10/21 05:25 Mechanical Rate 15.0 04/10/21 05:25 FiO2 40.0 % 04/10/21 05:25 PEEP 10.0 cmH20 04/10/21 05:25 Internet Security Specialist ID Rieri 04/10/21 05:25 Sodium 129 mmol/L (136-145) L 04/10/21 03:17 Potassium 4.1 mmol/L (3.5-5.1) 04/10/21 03:17 Chloride 99 mmol/L (98-107) 04/10/21 03:17 Carbon Dioxide 19 mmol/L (22-29) L 04/10/21 03:17 Anion Gap 15.1 (5-19) 04/10/21 03:17 BUN 28 mg/dL (8-23) H 04/10/21 03:17 Creatinine 1.4 mg/dL (0.7-1.2) H 04/10/21 03:17 GFR Calculation Not Reportable 04/10/21 03:17 Glucose 149 mg/dL (65-115) H 04/10/21 03:17 Calculated Osmolality 276 mOsm/kg (285-295) L 04/10/21 03:17 Lactate 1.2 mmol/L (0.5-2.2) 04/09/21 21:31 Calcium 8.2 mg/dL (8.5-10.5) L 04/10/21 03:17 Total Bilirubin 0.2 mg/dL (0.15-1.2) 04/10/21 03:17 AST 12 U/L (0-40) 04/10/21 03:17 ALT 8 U/L (0-41) 04/10/21 03:17 Alkaline Phosphatase 75 IU/L (40-130) 04/10/21 03:17 Troponin T Baseline 36 ng/L (0-15) H 04/09/21 21:31 Troponin T 120 Minute 47.37 ng/L (0-15) H 04/09/21 23:21 Delta Troponin T 11.37 ABS# (0-10) H* 04/09/21 23:21 Troponin T Hi Sens 6Hr 79.76 ng/L (0-15) H 04/10/21 03:17 Troponin T Hi Sens 6Hr Delta 43.76 ng/L (0-12) H* 04/10/21 03:17 NT-Pro-B Natriuret Pep 1709 pg/mL (0-125) H 04/09/21 21:31 Total Protein 5.9 g/dL (6.6-8.7) L 04/10/21 03:17 Albumin 3.6 g/dL (3.5-5.2) 04/10/21 03:17 Globulin 2.3 g/dL (1.3-4.6) 04/10/21 03:17 Lipase 69 U/L (13-60) H 04/09/21 21:31 SARS-CoV-2 Ag (Rapid) Negative (Negative) 04/09/21 21:36 Impressions Chest X-Ray 04/09/21 21:32 IMPRESSION: 1. Ill-defined interstitial and alveolar opacities in the right and left lower lobe suspicious for pneumonia, including atypical organisms. Recommend clinical correlation. Recommend followup chest x-ray to ensure resolution. 2. Interval placement of an enteric tube with the tip the GE junction and the proximal port in the lower esophagus. Recommend advancing the tube 8-9 cm. 3. Interval placement of an endotracheal tube with the tip 5.7 cm above the marie. 4. Incidental/nonacute findings are listed in the report. ADDENDUM: 04/09/21 [id number] Urgent results were discussed with KAILEE Lira on 04/09/2021 at 10:42 PM CDT. A&P Assessment and plan (1) Acute respiratory failure with hypoxia and hypercapnia: Requiring intubation in the field due to the degree of distress Differential includes acute on chronic CHF, acute on chronic COPD, pneumonia either bacterial or viral, acute cardiac ischemia, pulmonary emboli, among others Status: Acute (2) Ischemic cardiomyopathy: Ejection fraction around 35% on last echocardiogram, clinically sounds like acute on chronic systolic CHF at presentation, has responded to Lasix in the emergency room His Lasix prescription may have recently run out looking at external pharmacy records, is on a chronic ARB Status: Chronic (3) Non-ST elevation MA (NSTEMI): In a patient with a known history of coronary artery disease. Angiogram August 2019 LAD chronic occlusion, first obtuse marginal 60% stenosis, RCA ulcerated 90% stenosis which was stented Chronically on aspirin and Plavix as well as statin therapy and beta-blockade all of which have been continued May be secondary to degree of respiratory distress and associated demand ischemia versus primary ischemic event leading to symptoms Status: Acute (4) Aortic stenosis: Aortic valve area 1.6 cm? on last echocardiogram with a gradient of 11.6 mmHg and peak velocity 2.4 m/s Status: Chronic Qualifiers: Cardiac valve disease etiology: nonrheumatic Qualified Code(s): I35.0 - Nonrheumatic aortic (valve) stenosis (5) Pneumonia: Presumptive diagnosis at the time of admission, started on empiric treatment for community-acquired pneumonia in the emergency room, rapid Covid was negative, Covid PCR pending Status: Acute Qualifiers: Pneumonia type: due to unspecified organism Laterality: bilateral Lung location: lower lobe of lung Qualified Code(s): J18.9 - Pneumonia, unspecified organism (6) Normocytic anemia: With drop in hemoglobin compared to prior values, no known report of any bleeding though history is limited Status: Acute (7) HLD (hyperlipidemia): On chronic statin Status: Chronic Qualifiers: Hyperlipidemia type: unspecified Qualified Code(s): E78.5 - Hyperlipidemia, unspecified (8) HTN (hypertension): Chronically on Lasix, spironolactone, carvedilol and losartan Reported to have systolic blood pressures greater than 200 in the field, which had normalized upon arrival to the emergency room. After initiation of treatment including medications for sedation while intubated, has had low normal blood pressures along with episodes of hypotension that appear to be in relation to medications Status: Chronic Qualifiers: Hypertension type: essential hypertension Qualified Code(s): I10 - Essential (primary) hypertension (9) COPD (chronic obstructive pulmonary disease): Unclear if acute, known to be chronic Status: Chronic Qualifiers: COPD type: unspecified COPD Qualified Code(s): J44.9 - Chronic obstructive pulmonary disease, unspecified (10) Chronic kidney disease: Status: Chronic Qualifiers: Chronic kidney disease stage: stage 2 (mild) Qualified Code(s): N18.2 - Chronic kidney disease, stage 2 (mild) (11) Pacemaker: Status: Chronic (12) Hypothyroidism: On chronic levothyroxine therapy Status: Chronic Qualifiers: Hypothyroidism type: unspecified Qualified Code(s): E03.9 - Hypothyroidism, unspecified Additional A&P Information Inpatient admission ICU care Continue ventilatory support, weaning as able Echocardiogram Continue serial cardiac enzymes Continue IV diuresis for now Monitor urine output and renal response to therapy I am currently holding Aldactone Continue low-dose ARB as blood pressure tolerates Continue carvedilol as blood pressure tolerates Continue aspirin and Plavix Continue statin therapy Lovenox at treatment dose Cardiology consultation, have discussed with Dr. Collado Continue Rocephin and azithromycin started in the emergency room Send Covid PCR Blood cultures were collected in the emergency room Sputum culture collected in the emergency room Gastric tube management Ryan catheter for monitoring of urine output Continue home levothyroxine Check Hemoccult of stool and iron studies Check lipid panel Check urinalysis Protonix for GI prophylaxis Treatment dose Lovenox provides VTE prophylaxis We will need to get more history after patient is weaned from ventilator Supportive care otherwise Anticipated disposition Home currently though will ultimately depend on clinical course Full code entered based on available information in the record Attestations Medical Necessity Statement*: Anticipated stay greater than two midnights inpatient requiring intubation and mechanical ventilation for acute respiratory distress. Plans are as indicated. Coding Level of Care Code Acute Hot Saw Operator for Kuldeep Wright Diagnoses Acute respiratory failure with hypoxia and hypercapnia J96.01; J96.02 Ischemic cardiomyopathy I25.5 Non-ST elevation MA (NSTEMI) I21.4 Aortic stenosis I35.0 Cardiac valve disease etiology: nonrheumatic Pneumonia J18.9 Pneumonia type: due to unspecified organism Laterality: bilateral Lung location: lower lobe of lung Normocytic anemia D64.9 HLD (hyperlipidemia) E78.5 Hyperlipidemia type: unspecified HTN (hypertension) I10 Hypertension type: essential hypertension COPD (chronic obstructive pulmonary disease) J44.9 COPD type: unspecified COPD Chronic kidney disease N18.2 Chronic kidney disease stage: stage 2 (mild) Pacemaker Z95.0 Hypothyroidism E03.9 Hypothyroidism type: unspecified
[2021-04-10 05:33] LABS: ABG PH Result 7.34 (7.35-7.45); Arterial Blood Gas Hematocrit 30.5 % (42-52); Base Excess ABG -4.7 mmol/L (-2.0-2.0); Blood Gas Allen Test Pos; Blood Gas Sample Site Radial, right; Blood Gas Sample Type Arterial; Carboxyhemoglobin 1.3 %THgb (0.4-20.1); HCO3 ABG 20.8 mmol/L (22-26); HGB O2 Sat 96.2 % (95-100); Methemoglobin < 0.0 % (0.4-1.5); Oxygen Device VENT; PO2 ABG 82.6 mmHg (80.0-100.0)
[2021-04-10] MEDS: propofol 1,000 MG/100 ML INJ 12.9 MG IV ×2 (05:33→11:02)
[2021-04-10] MEDS: enoxaparin 40 mg/0.4 mL Syringe SUBCUT ×2 (06:43→10:19)
--- NOTE | 2021-04-10 07:35 | USCV_ITS ---
Juarez Delgado Age: 75 Gender: M : 1945 Exam Date: 04/10/2021 12:45 Ordering Phys: Dina Kuo MD Technologist: Lashell Plascencia [place]am Location: [facility] [place]ication: NSTEMI BP: 100 / 54 HR: 79 Rhythm: Sinus Technical Quality: Technically difficult study MEASUREMENTS (Male / Female) Normal Values 2D ECHO LV Diastolic Diameter PLAX 5.4 cm 4.2 - 5.9 / 3.9 - 5.3 cm LV Systolic Diameter PLAX 4.7 cm IVS Diastolic Thickness 1.2 cm 0.6 - 1.0 / 0.6 - 0.9 cm IVS Systolic Thickness 2.3 cm LVPW Diastolic Thickness 1.6 cm 0.6 - 1.0 / 0.6 - 0.9 cm LVPW Systolic Thickness 1.4 cm LVOT Diameter 1.9 cm LV Ejection Fraction 2D Teich 26.2 % LV Ejection Fraction MOD 2C 23.9 % LV Ejection Fraction 2C AL 23.2 % LA Diameter 3.1 cm LA Width 3.6 cm LA Height 4.4 cm RA Width 3.6 cm RA Height 4.4 cm Aorta at Sinotubular Diameter 2.3 cm DOPPLER AV Peak Velocity 180.0 cm/s LVOT Peak Velocity 75.0 cm/s AV Area Cont Eq vti 1.4 cm squared AV Area Cont Eq pk 1.2 cm squared MV Area PHT 5.0 cm squared Mitral E to A Ratio 2.0 MV E' Velocity 84.0 cm/s TR Peak Velocity 222.0 cm/s TR Peak Gradient 19.7 mmHg Right Atrial Pressure 8.0 mmHg Pulmonary Artery Systolic Pressu 27.7 mmHg FINDINGS Left Ventricle Severe diffuse hypokinesia of the septum and anteroseptal segments. Somewhat dyskinetic LV apex. Moderate hypokinesia of the inferior and inferolateral wall segments LV ejection fraction around 26% Right Ventricle Normal right ventricular size and systolic function. Right Atrium Normal right atrial size. Left Atrium Mildly increased left atrial size. Mitral Valve Thickened mitral valve. Mild mitral valve regurgitation. Aortic Valve Thickened aortic valve. Mild aortic valve regurgitation. Tricuspid Valve No gross abnormalities noted Pulmonic Valve Pulmonic valve not well visualized. Pericardium Normal pericardium without effusion. Aorta Normal ascending aorta dimension. CONCLUSIONS Multiple wall motion normalities with a diminished ejection fraction of 26%. Mildly dilated LV cavity. Mildly increased left atrial size. Thickened aortic and mitral valves. Mild mitral valve regurgitation. Mild aortic valve regurgitation. There is no pericardial effusion. There are no intracardiac masses. Compared to the study from 10/11/2020, there is a significant drop in the LV ejection fraction Dr Laura Collado MD [facility] (Electronically Signed) Final Date: 10 April 2021 13:47 S
--- NOTE | 2021-04-10 08:03 | PC.PHAR ---
pt unable to verify medications pt is intubated-pts verified medications entered-pts states the pt was on losartan 50mg daily pts states it was changed rx filled on 04/09/21 for 25mg daily
[2021-04-10 09:08] LABS: Creatine Phosphokinase 108 U/L (39-308); Ferritin 141 ng/mL (30-400)
--- NOTE | 2021-04-10 09:12 | PM.CONSULT ---
Providers/Reason For Consult Consulting Physician/Specialty*: ROSA Collado MD/cardiology Reason for Consult*: Patient with respiratory failure/congestive heart failure. History of ASHD, PCI and permanent pacemaker implantation Attending Physician: Dina Kuo MD Primary Care Provider: Gregorio Cunningham DO History of Present Illness History of Present Illness Juarez Delgado is a 75 year old male, is admitted to hospital through the emergency room where he presented with rather acute onset shortness of breath/respiratory distress. He was tried on BiPAP in the field but apparently the patient could not tolerate. On the way to the hospital, in the ambulance, patient got intubated endotracheally. He is currently on a vent. Information is mostly from the medical records. This patient is known to have atherosclerotic heart disease and previous PCI. He was found to have a chronically occluded left artery descending artery. He has a most recent cardiac catheterization on 12 October 2020. He presented to the hospital with recurrent episodes of syncope at that time. Cardiac catheterization revealed a high-grade lesion in the obtuse marginal artery for which he underwent PCI. 3 days later, he had a permanent pacer implantation for the complete heart block. He also had a PCI of the RCA in the past. His LV ejection fraction was found to be 43% by echocardiogram done in September of this year. He is known to have aortic valve disease. He has a history of hypertension, dyslipidemia, chronic kidney disease, COPD, hypothyroidism. I could get in touch with his at this time. According to the , the patient has been in his baseline state of health up until he went to bed last night when he started getting short of breath. He was found to be very diaphoretic and short of breath by his . So she called the ambulance. As the ambulance crew arrived, he was found to be in respiratory distress. He was placed on a BiPAP. Since he was not able to tolerate this, he had to be intubated in the ambulance. He returned to have any chest pain, fever or chills prior to this event. 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 He has been compliant with the medications.. Having nausea vomiting. No abdominal pain. No other specific complaints. Review of Systems Narrative: CONSTITUTIONAL: No fever or chills. EYES: No blurring of vision or other visual disturbances lately. ENT: No hoarseness of voice, auditory disturbances or sore throat. CARDIOVASCULAR: As mentioned above. RESPIRATORY: No significant cough. Has a baseline shortness of breath with activities. GASTROINTESTINAL: No hematemesis or melena. GENITOURINARY: No dysuria or hematuria. INTEGUMENTARY: No skin rashes or history of skin cancer. NEURO: No transient ischemic attacks or amaurosis. PSYCHIATRIC: No history of psychosis or major depression. HEMATOLOGIC: No bleeding disorders or significant anemia. ENDOCRINE: No history of polyuria or polydipsia. MUSCULOSKELETAL: No recent joint pain or swelling. ALLERGY/IMMUNOLOGY: As mentioned above. Meds/Allergies Home Medications and Allergies Home Medications Medication Instructions Recorded Confirmed Last Taken Type aspirin 81 mg PO QAM 08/25/19 04/10/21 10/11/20 History levothyroxine [Synthroid] 75 mcg PO QAM 08/25/19 04/10/21 10/11/20 History carvedilol 3.125 mg PO BID 10/11/20 04/10/21 10/11/20 History spironolactone 25 mg PO QAM 10/11/20 04/10/21 10/11/20 History atorvastatin 40 mg PO QAM #0 tab 10/14/20 04/10/21 10/11/20 Rx nitroglycerin 0.4 mg sublingual 0.4 mg SUBLINGUAL Q5M PRN #25 tab 11/27/20 04/10/21 Unknown Rx tablet clopidogrel 75 mg tablet 75 mg PO QAM #90 tab 02/19/21 04/10/21 Unknown Rx Zyrtec 10 mg PO DAILY 04/10/21 04/10/21 Unknown History losartan 25 mg PO QAM 04/10/21 04/10/21 Unknown History furosemide 40 mg PO QAM 30 Days #30 tab 04/13/21 04/10/21 Unknown Rx furosemide [Lasix] 20 mg PO DAILY 30 Days #30 tab 04/13/21 Unknown Rx potassium chloride 10 meq PO DAILY 30 Days #30 tab 04/13/21 Unknown Rx Allergies Allergy/AdvReac Type Severity Reaction Status Date / Time No Known Allergies Allergy Verified 04/10/21 08:00 Current Medications Current Medications Generic Name Dose Route Start Last Admin Trade Name Freq PRN Reason Stop Dose Admin Propofol 1,000 mg in 100 mls @ 0 mls/hr 04/09/21 21:45 04/10/21 05:33 Diprivan IV 25 mcg/kg/min .Q0M DAVID 12.9 mls/hr Administration Protocol Per Protocol Fentanyl 1,000 mcg/ Sodium 100 mls @ 0 mls/hr 04/09/21 21:45 04/10/21 07:03 Chloride IV 50 mcg/hr .Q0M DAVID 5 mls/hr Titration Protocol Per Protocol Azithromycin 500 mg/ Sodium 250 mls @ 250 mls/hr 04/09/21 22:45 04/10/21 01:22 Chloride IV Infused Q24H DAVID Infusion Protocol Norepinephrine Bitartrate 4 mg 254 mls @ 0 mls/hr 04/10/21 00:45 04/10/21 03:18 / Dextrose IV 0 mcg/min .Q0M DAVID 0 mls/hr Titration Protocol Per Protocol Levothyroxine Sodium 75 mcg 04/10/21 06:00 04/10/21 07:19 Levothyroxine 75 Mcg Tablet PO Not Given QAM DAVID PFSH Acute PFSH: Medical History Aortic stenosis Echo 10/01 with mild aortic stenosis, [place] 1.6 cm2, mean gradient 11.6 mmHg, peak velocity 2.4 m/sec CAD (coronary artery disease) Angiogram August 2019 demonstrated EF around 35%, LAD chronic occlusion, first obtuse marginal 60% stenosis, RCA ulcerated 90% stenosis which was stented Chronic kidney disease COPD (chronic obstructive pulmonary disease) Erectile dysfunction HLD (hyperlipidemia) HTN (hypertension) Hypothyroidism Ischemic cardiomyopathy Squamous cell carcinoma skin of arm Tobacco abuse Surgical History Pacemaker Medtronic S/P PTCA (percutaneous transluminal coronary angioplasty) August 2019 Family History Brother CAD (coronary artery disease) Social History Smoking and tobacco status: current every day smoker Alcohol intake: current Alcohol intake frequency: few times a month Vitals/I&O/Wt Last Vital Signs Temp 97.6 F 04/09/21 21:36 Pulse 60 04/10/21 08:10 Resp 17 04/10/21 08:10 BP 99/54 04/10/21 08:10 Pulse Ox 99 04/10/21 08:10 04/09/21 04/10/21 04/10/21 22:59 06:59 14:59 Intake Total 527.767 / 527.767 11.125 / 11.125 Output Total 1750 / 1750 Balance -1222.233 / -1222.233 11.125 / 11.125 Weight last 48 hrs Weight 195 lb Physical Exam Narrative: EXAM NARRATIVE: GENERAL: The is intubated and sedated. HEENT: Minimal pallor with no icterus or lymphadenopathy. Oral cavity: There are no mucous membrane lesions. Funduscopic examination: The fundus is not visualized NECK: Trachea appears to be central. No masses noted. No JVD or thyromegaly appreciated. No carotid bruit. RESPIRATORY: Chest is symmetrical. No intercostals muscle retraction or any accessory muscle activation. There is no chest wall tenderness. Breath sounds are heard bilaterally. No rales or rhonchi heard. No evidence of any consolidation. BREASTS: Deferred. HEART: The heart sounds are normal. No S3 or S4. Short systolic murmur in the left sternal border. No diastolic murmurs. No pericardial rub. ABDOMEN: No vessel pulsations or distention. No tenderness. No organomegaly appreciated. No abdominal bruit. Bowel sounds are normally heard. : Deferred. RECTAL: Deferred. LYMPHATIC: No lymphadenopathy noted in the neck or groin. EXTREMITIES: No edema or cyanosis peripheral pulses are extremely weak bilaterally. Extremities are relatively cold. MUSCULOSKELETAL: No acute joint deformities or swelling. SKIN: There are no significant scars or skin rash noted. NEUROPSYCHIATRIC: Patient is intubated and sedated. Urinary Catheter Management^: Ryan: Cath Placed During This Visit: yes Reason for Continuing Indwelling Catheter: Accurate Measurement of Urinary Output in Critically Ill Patients Urinary Catheter Date of Insertion: 04/09/21 Urinary Catheter Time of Insertion: 21:45 Data Labs: Other Labs: Echocardiogram from 10/11/2020 revealed 1. This is a technically difficult study. Ultrasound enhancing agent (Optison) was used. 2. Mildly increased left ventricular cavity size. Mildly decreased left ventricular systolic function. Left ventricular ejection fraction is estimated at 45 %. Mild global hypokinesis somewhat more pronounced in apical dover. 3. Mild aortic valve stenosis, peak velocity 2.4 m/sec, mean gradient 11.6 mmHg, [place] 1.6 cm squared. 4. Mild to moderate aortic valve regurgitation. Laboratory Last Values WBC 9.8 10^3/uL (4.0- 10.0) 04/10/21 03:17 RBC 3.21 10^6/uL (4.1 -5.3) L 04/10/21 03:17 Hgb 9.8 g/dL (11.7-16 .6) L 04/10/21 03:17 Hct 29.3 % (42.0-52.0 ) L 04/10/21 03:17 MCV 91.3 fl (80-94) 04/10/21 03:17 MCH 30.5 pg (28.0-34. 0) 04/10/21 03:17 MCHC 33.4 g/dL (30.0-3 6.0) 04/10/21 03:17 RDW 13.6 % (12.1-15.1 ) 04/10/21 03:17 Plt Count 218 10^3/cmm (130 -400) 04/10/21 03:17 MPV 10.1 fL (7.4-10.4 ) 04/10/21 03:17 Neut % (Auto) 86.4 % 04/10/21 03:17 Lymph % (Auto) 7.2 % 04/10/21 03:17 [place] % (Auto) 5.0 % 04/10/21 03:17 Eos % (Auto) 0.5 % 04/10/21 03:17 Baso % (Auto) 0.2 % 04/10/21 03:17 Neut # (Auto) 8.46 10^3/uL (1.8 -7.7) H 04/10/21 03:17 Lymph # (Auto) 0.7 10^3/uL (0.8- 4.8) L 04/10/21 03:17 [place] # (Auto) 0.5 10^3/uL (0.2- 0.9) 04/10/21 03:17 Eos # (Auto) 0.1 10^3/uL (0.0- 0.8) 04/10/21 03:17 Baso # (Auto) 0.0 10^3/uL (0.0- 0.1) 04/10/21 03:17 Nucleated RBC % (a uto) 0 % 04/10/21 03:17 Nucleated RBCs # 0.0 /100WBC 04/10/21 03:17 Specimen Type Arterial 04/10/21 05:25 Sample Site Radial, right 04/10/21 05:25 ABG pH 7.34 (7.35-7.45) L 04/10/21 05:25 ABG pCO2 39.0 mmHg (35-45) 04/10/21 05:25 ABG pO2 82.6 mmHg (80.0-1 00.0) 04/10/21 05:25 ABG HCO3 20.8 mmol/L (22-2 6) L 04/10/21 05:25 ABG Base Excess -4.7 mmol/L (-2.0 -2.0) L 04/10/21 05:25 Jae Test Pos 04/10/21 05:25 Hematocrit 30.5 % (42-52) L 04/10/21 05:25 Hgb O2 Saturation 96.2 % (95-100) 04/10/21 05:25 Carboxyhemoglobin 1.3 %THgb (0.4-20 .1) 04/10/21 05:25 Methemoglobin < 0.0 % (0.4-1.5) L 04/10/21 05:25 Total Hemoglobin 10.0 g/dL (14-18) L 04/10/21 05:25 O2 Delivery Device Vent 04/10/21 05:25 Mechanical Rate 15.0 04/10/21 05:25 FiO2 40.0 % 04/10/21 05:25 PEEP 10.0 cmH20 04/10/21 05:25 Lead Manufacturing Engineer ID Rieri 04/10/21 05:25 Sodium 129 mmol/L (136-1 45) L 04/10/21 03:17 Potassium 4.1 mmol/L (3.5-5 .1) 04/10/21 03:17 Chloride 99 mmol/L (98-107 ) 04/10/21 03:17 Carbon Dioxide 19 mmol/L (22-29) L 04/10/21 03:17 Anion Gap 15.1 (5-19) 04/10/21 03:17 BUN 28 mg/dL (8-23) H 04/10/21 03:17 Creatinine 1.4 mg/dL (0.7-1. 2) H 04/10/21 03:17 GFR Calculation Not Reportable 04/10/21 03:17 Glucose 149 mg/dL (65-115 ) H 04/10/21 03:17 Calculated Osmolal ity 276 mOsm/kg (285- 295) L 04/10/21 03:17 Lactate 1.2 mmol/L (0.5-2 .2) 04/09/21 21:31 Calcium 8.2 mg/dL (8.5-10 .5) L 04/10/21 03:17 Ferritin 141 ng/mL (30-400 ) 04/10/21 03:17 Total Bilirubin 0.2 mg/dL (0.15-1 .2) 04/10/21 03:17 AST 12 U/L (0-40) 04/10/21 03:17 ALT 8 U/L (0-41) 04/10/21 03:17 Alkaline Phosphata se 75 IU/L (40-130) 04/10/21 03:17 Creatine Kinase 108 U/L (39-308) 04/10/21 03:17 Troponin T Baselin e 36 ng/L (0-15) H 04/09/21 21:31 Troponin T 120 Min karli 47.37 ng/L (0-15) H 04/09/21 23:21 Delta Troponin T 11.37 ABS# (0-10) H* 04/09/21 23:21 Troponin T Hi Sens 6Hr 79.76 ng/L (0-15) H 04/10/21 03:17 Troponin T Hi Sens 6Hr Delta 43.76 ng/L (0-12) H* 04/10/21 03:17 NT-Pro-B Natriuret Pep 1709 pg/mL (0-125 ) H 04/09/21 21:31 Total Protein 5.9 g/dL (6.6-8.7 ) L 04/10/21 03:17 Albumin 3.6 g/dL (3.5-5.2 ) 04/10/21 03:17 Globulin 2.3 g/dL (1.3-4.6 ) 04/10/21 03:17 Lipase 69 U/L (13-60) H 04/09/21 21:31 SARS-CoV-2 Ag (Rap id) Negative (Negati ve) 04/09/21 21:36 Micro: Micro: Microbiology 04/09/21 23:21 Blood Culture - Pr eliminary Blood SPECIMEN [facility] RAJ 04/09/21 22:15 Blood Culture - Pr eliminary Blood SPECIMEN [facility] A&P Assessment and plan (1) Elevated troponin: Most likely the patient had a non-ST relation myocardial infarction. The EKG is uninterpretable due to the pacing artifacts-almost 100% paced rhythm. Status: Acute (2) Acute respiratory failure with hypoxia and hypercapnia: Most likely the patient had an acute pulmonary edema causing the respiratory distress. Currently his oxygenation is good. He is on 32% of oxygen and an oxygen saturation of 98%. Patient will be carefully treated with IV diuretics. Status: Acute (3) Aortic stenosis: Mild aortic valve stenosis. Status: Chronic Qualifiers: Cardiac valve disease etiology: nonrheumatic Qualified Code(s): I35.0 - Nonrheumatic aortic (valve) stenosis (4) Pacemaker: The pacemaker function appears to be appropriate. We will continue on the current pacemaker settings. Status: Chronic (5) Hypotension: This could be multifactorial. The sudden drop in the LV systolic function/non-ST relation myocardial infarction/congestive heart failure, etc. are contributing factors. Status: Acute Qualifiers: Hypotension type: unspecified hypotension type Qualified Code(s): I95.9 - Hypotension, unspecified Additional A&P Information Other problems are #1. Anemia #2. Chronic renal insufficiency #3. Status post permanent pacer implantation #4. Dyslipidemia Patient will be treated with the subcu Lovenox, p.o. aspirin, Plavix and statin. In view of the significant drop in the LV systolic function, we may consider doing a cardiac colorization, to further evaluate the coronary status and decide on further management. Is currently on Levophed 5 mics per KG per minute. The goal is to gradually taper him off the Levophed. Based on the clinical progress, further recommendations will be made. Thank for the opportunity to evaluate this patient make these recommendations. Consult Attestations Medical Necessity Statement: Patient requires continued hospital stay for close monitoring and further management Coding Level of Care Code Acute Business Development Director for Chg Fwd History Detailed Exam Detailed Medical Decision Making High Complexity Diagnoses Elevated troponin R77.8 Acute respiratory failure with hypoxia and hypercapnia J96.01; J96.02 Aortic stenosis I35.0 Cardiac valve disease etiology: nonrheumatic Pacemaker Z95.0 Hypotension I95.9 Hypotension type: unspecified hypotension type Time Spent (min) 65
[2021-04-10] MEDS: aspirin 81 mg EC Tablet PO (10:20)
[2021-04-10] MEDS: atorvastatin 40 mg Tablet PO (10:20)
[2021-04-10] MEDS: clopidogrel 75 mg Tablet PO (10:21)
[2021-04-10] MEDS: docusate sodium 10 mg/mL (5ml) Liq 100 MG PO (10:21)
[2021-04-10] MEDS: cetirizine 10 mg Tablet PO (10:21)
[2021-04-10] MEDS: pantoprazole 40 mg SDV IVP (10:26)
[2021-04-10] MEDS: lactobacillus 1 Tablet 1 TAB PO (10:26)
[2021-04-10] MEDS: cefTRIAXone 1,000 MG in sodium chloride 0.9% (plus) 50 ML 100 MG IV (11:09)
[2021-04-10 11:10] LABS: INR 1.01 (0.8-1.2)
[2021-04-10 11:12] LABS: Partial Thromboplastin Time 31.1 SECONDS (23.9-36.7)
[2021-04-10 11:15] LABS: D Dimer 1.95 ug/mIFEU (0-0.59)
--- NOTE | 2021-04-10 14:52 | PM.PN ---
Vitals/I&O/Wt Last Vital Signs Temp 97.7 F 04/10/21 13:45 Pulse 60 04/10/21 14:15 Resp 17 04/10/21 14:05 BP 88/47 04/10/21 14:15 Pulse Ox 90 04/10/21 14:15 04/09/21 04/10/21 04/10/21 22:59 06:59 14:59 Intake Total 527.767 / 527.767 81.860 / 81.860 Output Total 1750 / 1750 Balance -1222.233 / -1222.233 81.860 / 81.860 Weight last 48 hrs Weight 88.451 kg Weight 88.451 kg Physical Exam Urinary Catheter Management^: Ryan: Cath Placed During This Visit: yes Reason for Continuing Indwelling Catheter: Accurate Measurement of Urinary Output in Critically Ill Patients Urinary Catheter Date of Insertion: 04/09/21 Urinary Catheter Time of Insertion: 21:45 Data : 04/10/21 03:17 04/10/21 03:17 Micro: Microbiology 04/09/21 23:21 Blood Culture - Preliminary Blood SPECIMEN COLLECTED 04/09/21 22:15 Blood Culture - Preliminary Blood SPECIMEN COLLECTED Coding Level of Care Code Acute Film Composer for Kuldeep Wright
[2021-04-10 16:01] LABS: Coronavirus Test Green County Not Detected
[2021-04-10] MEDS: propofol 1,000 MG/100 ML INJ 15.92 MG IV (16:11)
[2021-04-10 17:03] LABS: Add Urine Microscopic? YES; Bilirubin Urine Neg (Negative); Blood Urine 3+ (Negative); Glucose Urine UA Norm (Normal); Ketones Urine Negative (Negative); Leukocyte Esterase Urine 2+ (Negative); Nitrate Urine Negative (Negative); Protein Urine Neg (Negative); Specific Gravity, Urine 1.015 (1.005-1.030); Urine Appearance Hazy (CLEAR); Urine Color Yellow (Yellow); Urobilinogen Urine Norm (Negative); pH Urine 5 (5-7)
[2021-04-10 17:06] LABS: Squamous Epithelial Cell Urine 0-4 /hpf (0-5); WBC Urine 55-80 /hpf (0-5)
[2021-04-10 17:07] LABS: Add Urine Culture? Yes; Bacteria Urine TRACE /hpf; Mucus Urine TRACE /hpf; Other Casts Urine WBC CAST /lpf
--- NOTE | 2021-04-10 18:26 | XRR_ITS ---
PROCEDURE INFORMATION: Exam: XR Chest Exam date and time: 04/10/2021 6:09 PM Age: 66 years old Clinical indication: Device placement; Additional info: After ogt TECHNIQUE: Imaging protocol: XR of the chest. Views: 1 view. COMPARISON: CR XR chest 1V portable [id number] 04/10/2021 12:06 PM FINDINGS: Tubes, catheters and devices: Endotracheal tube is approximately 6 cm above the marie. There is orogastric tube in place with its tip in the stomach. Lungs: The visualized portions of the lungs are clear. Pleural spaces: Unremarkable. No pleural effusion. No pneumothorax. Heart/Mediastinum: Unremarkable. No cardiomegaly. Bones/joints: Unremarkable. XR/XR chest 1V portable [id number] IMPRESSION: Satisfactory position of endotracheal tube and NG tube.
[2021-04-10] MEDS: enoxaparin 80 mg/0.8 mL Syringe SUBCUT (20:16)
[2021-04-10] MEDS: carvedilol 3.125 mg Tablet PO (20:17)
[2021-04-10] MEDS: propofol 1,000 MG/100 ML INJ 10.32 MG IV (22:41)
[2021-04-11] VITALS (97 sets, daily range): BP systolic 92–125; BP diastolic 36–69; PULSE 60–103; RESP 10–27; TEMP 36.2–36.7; O2SAT 86–98
[2021-04-11 04:47] LABS: Basophils # 0.1 10^3/uL (0.0-0.1); Basophils % 0.9 %; Eosinophils # 0.9 10^3/uL (0.0-0.8); Eosinophils % 9.2 %; Hematocrit 31.5 % (42.0-52.0); Hemoglobin 10.4 g/dL (11.7-16.6); Lymphocytes # 1.5 10^3/uL (0.8-4.8); Mean Corpuscular Hemoglobin 30.6 pg (28.0-34.0); Mean Corpuscular Volume 92.6 fl (80-94); Mean Platelet Volume 11.1 fL (7.4-10.4); Monocytes # 0.8 10^3/uL (0.2-0.9); Monocytes % 8.4 %; Neutrophils # 6.13 10^3/uL (1.8-7.7); Neutrophils % 65.2 %; Nucleated Red Blood Cells % 0 %; Platelet Count 247 10^3/cmm (130-400); Red Cell Distribution Width 13.9 % (12.1-15.1); White Blood Count 9.4 10^3/uL (4.0-10.0)
--- NOTE | 2021-04-11 04:59 | PC.NURSE ---
Shift Note Frequent safety and comfort rounds continue. Pt repositioned every two hours. Orders and nursing care completed as indicated. Patient monitored for response to intervention and treatment. Education provided includes pain management, reinforcement needed.
[2021-04-11] MEDS: levothyroxine 75 mcg Tablet PO (05:03)
[2021-04-11 05:06] LABS: Lactate (Lactic Acid level) 0.8 mmol/L (0.5-2.2)
[2021-04-11 05:07] LABS: Anion Gap 14.8 (5-19); Blood Urea Nitrogen 25 mg/dL (8-23); Calcium 8.4 mg/dL (8.5-10.5); Carbon Dioxide 20 mmol/L (22-29); Chloride 102 mmol/L (98-107); Glucose 104 mg/dL (65-115); Magnesium 2.3 mg/dL (1.7-2.3); Osmolality Calculated 281 mOsm/kg (285-295); Potassium 3.8 mmol/L (3.5-5.1); Sodium 133 mmol/L (136-145)
[2021-04-11 05:14] LABS: Chol HDL Ratio 3.92 mg/dL (1.0-5.00); Cholesterol 141 mg/dL (0-200); HDL Cholesterol 36 mg/dL (60-100); Iron 18 ug/dL (59-158); LDL Cholesterol Calculated 78 mg/dL (50-129); LDL HDL Ratio 2.17 RATIO (0.00-3.22); Percent Saturation 7.2 % (20-50); Total Iron Binding Capacity 249 mcg/dl; Triglycerides 134 mg/dL (0-150); Unsaturated Iron Binding 231 ug/dL (112-347)
[2021-04-11 05:21] LABS: ABG PCO2 35.7 mmHg (35-45); ABG PH Result 7.36 (7.35-7.45); Alveolar-Arterial Oxygen Gradi 10.2 mmHg (5-10); Arterial Blood Gas Hematocrit 34.4 % (42-52); Base Excess ABG -4.7 mmol/L (-2.0-2.0); Blood Gas Sample Site Brachial, left; Blood Gas Sample Type Arterial; HCO3 ABG 20.1 mmol/L (22-26); HGB O2 Sat 94.6 % (95-100); Ionized Calcium Level - ABG 1.2 mmol/L (1.1-1.4); Methemoglobin 0.3 % (0.4-1.5); Oxygen Device VENT; Oxygen Saturation ABG 95.8; PO2 ABG 75.6 mmHg (80.0-100.0); Potassium Level - ABG 3.8 mmol/L (3.5-5.0); Total Hemoglobin 11.2 g/dL (14-18)
[2021-04-11 05:34] LABS: Creatine Phosphokinase 2680 U/L (39-308)
--- NOTE | 2021-04-11 06:00 | XR_ITS ---
WS: [id number] Exam: XR chest 1V portable [id number] Date/Time of Exam: 04/11/2021 4:19 AM Reason For Exam: Follow up Comparison 04/10/2021. The lungs are fully expanded and clear. An ET tube is in place ending about 6 cm above the marie in satisfactory position. An enteric tube barely enters the stomach and extends just below the GE juncti on. A permanent cardiac pacer is noted over the left chest. Cardiomediastinal silhouette is normal fo r technique. Regional bony structures are intact. XR/XR chest 1V portable [id number] IMPRESSION: 1. No acute cardiopulmonary process noted. 2. ET tube in satisfactory position. 3. NG tube barely entering the stomach. The tube should be advanced an addition al 10 to 12 cm for optimal position. The side-port of the tube is in the lower esophagus.
--- NOTE | 2021-04-11 08:01 | PM.PN ---
Subjective Subjective: Interval history: Patient seen and examined this morning. He was intubated in ICU bed 10. Patient opening his eyes following commands. He did state that he was comfortable. When he went seen he was on 4 mics of Levophed, propofol and fentanyl. Minimal vent settings. Unable to obtain any other information as patient is intubated. Vitals/I&O/Wt Last Vital Signs Temp 97.2 F L 04/11/21 07:33 Pulse 62 04/11/21 07:33 Resp 18 04/11/21 07:33 BP 104/53 04/11/21 07:33 Pulse Ox 93 04/11/21 07:33 04/10/21 04/11/21 04/11/21 22:59 06:59 14:59 Intake Total 431.102 / 545.670 462.743 / 1008.413 Output Total 700 / 700 1200 / 1900 Balance -268.898 / -154.330 -737.257 / -891.587 Weight last 48 hrs Weight 90.718 kg Weight 88.451 kg Weight 88.451 kg Physical Exam Narrative: EXAM NARRATIVE: General: Alert , intubated, awake, following commands HEENT: Normocephalic, atraumatic, EOMI, on vent Cardio: Regular rate rhythm, normal S1-S2, no murmurs, unable to assess JVD Respiratory: Good bilateral air entry, mild rhonchi appreciated which are most likely ventilator breath sounds GI: Abdomen soft, nontender, nondistended, bowel sounds + Behavior: Appropriate and cooperative Extremities: no edema, no cyanosis Neuro: Unable to assess patient is on the vent. He is moving his extremities however able to blink his eyes and following commands. Urinary Catheter Management^: Ryan: Cath Placed During This Visit: yes Reason for Continuing Indwelling Catheter: Accurate Measurement of Urinary Output in Critically Ill Patients Urinary Catheter Date of Insertion: 04/09/21 Urinary Catheter Time of Insertion: 21:45 Data : 04/11/21 04:26 04/11/21 04:26 Micro: Microbiology 04/09/21 23:21 Blood Culture - Preliminary Blood NEGATIVE TO DATE 04/09/21 22:15 Blood Culture - Preliminary Blood NEGATIVE TO DATE 04/09/21 23:20 Gram Stain - Final Sputum - Endotracheal Tube Aspirate A&P Assessment and plan (1) Non-ST elevation VA (NSTEMI): Patient presented to emergency room with respiratory distress. He was intubated in the field prior to arrival to the hospital. He had acute flash pulmonary edema. He was given Lasix and responded well to that. He has been intubated sedated in the ICU since yesterday. Patient has diuresed well. There is evidence that his Lasix prescription might have run out from external pharmacy records. Unsure if patient was compliant to Lasix before this hospitalization. Once is extubated and wakes up we will obtain more information for him. Patient still intubated. Plan for weaning trial today and extubation. Echocardiogram obtained yesterday revealed a EF of 26%. Previously EF was 35%. Patient has a dual-chamber pacemaker in place. His roll contour grinder is Dr. Griffin. Continue aspirin, Plavix, statin, Coreg. Continue full dose Lovenox for now. Strict I's and O's, continue to monitor urine output Patient does not appear overtly fluid overloaded today. Will use Lasix as needed. Patient requiring vasopressor Levophed. Blood pressure 80/60. MAP greater than 65. We will try to wean off and if needed may add dobutamine. Discussed case with cardiology over the phone. Plan is to take patient for cath most likely this Friday. Aldactone is on hold for now. Lipid panel normal Unlikely the patient has pneumonia. I have him empirically treated for community-acquired pneumonia with ceftriaxone and azithromycin now. Bacterial antigens pending, blood cultures negative to date. Continue levothyroxine for hypothyroidism. Fluids: Cautious use due to low EF, he was vasopressor support Electrolytes: Replete as needed Nutrition: N.p.o. for now once extubated will initiate feeding Activity: Intubated. GI prophylaxis: Protonix DVT prophylaxis: Patient is on full dose Lovenox for now. Status: Acute (2) Acute respiratory failure with hypoxia and hypercapnia: Status: Acute (3) Chronic kidney disease: Status: Chronic Qualifiers: Chronic kidney disease stage: stage 2 (mild) Qualified Code(s): N18.2 - Chronic kidney disease, stage 2 (mild) (4) Pacemaker: Status: Chronic (5) Aortic stenosis: Status: Chronic Qualifiers: Cardiac valve disease etiology: nonrheumatic Qualified Code(s): I35.0 - Nonrheumatic aortic (valve) stenosis (6) CAD (coronary artery disease): Status: Chronic Qualifiers: Coronary Disease-Associated Artery/Lesion type: [place] artery [place] vs. transplanted heart: [place] heart Associated angina: angina presence unspecified Qualified Code(s): I25.10 - Atherosclerotic heart disease of [place] coronary artery without angina pectoris (7) HTN (hypertension): Status: Chronic Qualifiers: Hypertension type: essential hypertension Qualified Code(s): I10 - Essential (primary) hypertension (8) Pulmonary edema: Status: Acute (9) HLD (hyperlipidemia): Status: Chronic Qualifiers: Hyperlipidemia type: unspecified Qualified Code(s): E78.5 - Hyperlipidemia, unspecified (10) COPD (chronic obstructive pulmonary disease): Status: Chronic Qualifiers: COPD type: unspecified COPD Qualified Code(s): J44.9 - Chronic obstructive pulmonary disease, unspecified (11) Hypothyroidism: Status: Chronic Qualifiers: Hypothyroidism type: unspecified Qualified Code(s): E03.9 - Hypothyroidism, unspecified (12) Shock: Status: Acute Attestations Medical Necessity Statement*: On vent in ICU. Will be going for cath on Friday patient will most likely stay at the hospital for the next 3 to 4 days. Time Spent in Patient Care: 16 - 35 minutes Coding Level of Care Code Acute Teacher Resource for Chg Fwd Diagnoses Non-ST elevation VA (NSTEMI) I21.4 Acute respiratory failure with hypoxia and hypercapnia J96.01; J96.02 Chronic kidney disease N18.2 Chronic kidney disease stage: stage 2 (mild) Pacemaker Z95.0 Aortic stenosis I35.0 Cardiac valve disease etiology: nonrheumatic CAD (coronary artery disease) I25.10 Coronary Disease-Associated Artery/Lesion type: [place] artery [place] vs. transplanted heart: [place] heart Associated angina: angina presence unspecified HTN (hypertension) I10 Hypertension type: essential hypertension Pulmonary edema J81.1 HLD (hyperlipidemia) E78.5 Hyperlipidemia type: unspecified COPD (chronic obstructive pulmonary disease) J44.9 COPD type: unspecified COPD Hypothyroidism E03.9 Hypothyroidism type: unspecified Shock R57.9
[2021-04-11] MEDS: enoxaparin 80 mg/0.8 mL Syringe SUBCUT ×2 (08:06→20:03)
[2021-04-11] MEDS: clopidogrel 75 mg Tablet PO (08:06)
[2021-04-11] MEDS: lactobacillus 1 Tablet 1 TAB PO ×2 (08:06→17:25)
[2021-04-11] MEDS: atorvastatin 40 mg Tablet PO (08:07)
[2021-04-11] MEDS: cetirizine 10 mg Tablet PO (08:07)
[2021-04-11] MEDS: aspirin 81 mg EC Tablet PO (08:07)
[2021-04-11] MEDS: pantoprazole 40 mg SDV IVP (08:07)
[2021-04-11] MEDS: FUROsemide 10 mg/mL SDV 4mL 40 MG IVP (08:07)
[2021-04-11] MEDS: losartan 50 mg Tablet 25 MG PO (08:10)
[2021-04-11] MEDS: docusate sodium 10 mg/mL (5ml) Liq 100 MG PO (08:26)
[2021-04-11] MEDS: carvedilol 3.125 mg Tablet PO ×2 (08:26→20:03)
[2021-04-11] MEDS: cefTRIAXone 1,000 MG in sodium chloride 0.9% (plus) 50 ML 100 MG IV (10:22)
--- NOTE | 2021-04-11 10:22 | PC.CHAP ---
Pastoral Care Encounter/Spiritual Assessment Type of Contact [] Declined rn transition visit [] Patient/Family/Request visit [] Outpatient visit [] Follow-up visit [] Physician referral [] Code/Alert [x] Routine visit [] Staff referral [] Actively dying [x] Patient sleeping [] Family support [] [] Out of room [] Palliative care [] [x] Receiving care in room [] Pre-surgical visit [] Trauma [] Long length of stay [x] ICU visit [] Other: Relational/Emotional Strength [] Patient feels connected with others/family/visitors/staff [] Distress [] Loneliness/isolation [] Abandonment Spirituality of Patient [] Person of Cecy [] Attends Yazidism of their Cecy [] Believes in Prayer [] Reads Bible or Congregational materials [] There are Spiritual issues to be addressed Cna Caregiver Interventions [x] Prayer [] Active listening [] Non-anxious presence [] Spiritual/emotional support [] Crisis/trauma care [] Spiritual counseling [] Bereavement support [] Provided bereavement packet [] Provided Bible/devotional materials [] Provided toy/stuffed animal, coloring book to patient or family member [] Provided Communion [] Anointing/[place] [] Salvation [x] Completed spiritual assessment [] Other: Impact on Illness or Injury [] Angry [] Fearful [] Anxious [] Often cries [] Exhaustion [] Unable to work [] Unable to attend yazidi [] Unable to walk/stand [] Unable to read [] Unable to drive [] Unable to eat/drink [] Unable to sleep [] Unable to be with family [] Patient intubated [] Other: Summary Time spent with patient
--- NOTE | 2021-04-11 14:09 | PC.NURSE ---
Extubation 1325: Pt did well with sedation vacation. With the help of RT pt was successfully extubated. He is alert and oriented. is now at bedside. Pt tolerated well.
--- NOTE | 2021-04-11 15:54 | PC.RESP ---
sent smoking cessation and pulmonary rehab information
[2021-04-11] MEDS: docusate sodium 100 mg Capsule PO (17:25)
--- NOTE | 2021-04-11 18:00 | PC.NURSE ---
Shift Note Frequent safety and comfort rounds continue. Orders and/or nursing care completed as indicated. Patient monitored for response to intervention and treatment(s). Education provided includes low sodium diet. Patient and/or risk control field representative verbalize understanding. Will continue to monitor.
--- NOTE | 2021-04-11 18:15 | P.PN_ITS ---
Subjective Subjective: Interval history: I been asked by Dr. Collado to see Mr. Pizarro who is my patient he was admitted with acute respiratory failure pulmonary edema and worsening of LV function. Vitals/I&O/Wt Last Vital Signs Temp 98.1 F 04/11/21 15:15 Pulse 64 04/11/21 16:55 Resp 14 04/11/21 16:55 BP 93/36 04/11/21 16:55 Pulse Ox 94 04/11/21 16:35 04/11/21 04/11/21 04/11/21 06:59 14:59 22:59 Intake Total 462.743 / 1008.413 50 / 50 350 / 400 Output Total 1200 / 1900 2200 / 2200 Balance -737.257 / -891.587 50 / 50 -1850 / -1800 Weight last 48 hrs Weight 200 lb Weight 195 lb Weight 195 lb Physical Exam Narrative: EXAM NARRATIVE: GENERAL: Patient is awake and oriented he is intubated would like to be taken out NECK: No jugular vein distension. HEENT: No cyanosis. No icterus. No pallor. HEART: Regular S1 and S2. No murmur, rub or gallop. LUNGS: Scattered rattling bilaterally. ABDOMEN: Soft, nontender and nondistended. Positive bowel sounds. No guarding, rebound or tenderness. CENTRAL NERVOUS SYSTEM: Grossly nonfocal. EXTREMITIES: Lower extremities without edema bilaterally. Urinary Catheter Management^: Ryan: Cath Placed During This Visit: yes Reason for Continuing Indwelling Catheter: Accurate Measurement of Urinary Output in Critically Ill Patients Urinary Catheter Date of Insertion: 04/09/21 Urinary Catheter Time of Insertion: 21:45 Data : 04/11/21 04:26 04/11/21 04:26 Micro: Microbiology 04/10/21 23:18 MRSA Culture - Final Nose 04/09/21 23:20 Gram Stain - Final Sputum - Endotracheal Tube Aspirate Sputum Culture - Preliminary 04/10/21 16:10 Bacterial Antigens - Final Urine,Clean Catch 04/09/21 23:21 Blood Culture - Preliminary Blood NEGATIVE TO DATE 04/09/21 22:15 Blood Culture - Preliminary Blood NEGATIVE TO DATE A&P Assessment and plan (1) Elevated troponin: Elevated cardiac markers could be type II demand ischemia as a result of pulmonary edema respiratory failure. Continue current regimen and management Status: Acute (2) Acute respiratory failure with hypoxia and hypercapnia: Pulmonary edema has resolved continue IV diuresis weaning off trial today and may will try to extubate. I will continue IV 40 mg of Lasix Status: Acute (3) Aortic stenosis: Mild aortic valve stenosis. Status: Chronic Qualifiers: Cardiac valve disease etiology: nonrheumatic Qualified Code(s): I35.0 - Nonrheumatic aortic (valve) stenosis (4) Pacemaker: The pacemaker function appears to be appropriate. Continue at current setting Status: Chronic (5) Hypotension: Due to LV dysfunction, IV propofol and low cardiac output heart failure may be the reason. Hopefully when he will wake up and extubated blood pressure will improve since he has been diuresed well. Status: Acute Qualifiers: Hypotension type: unspecified hypotension type Qualified Code(s): I95.9 - Hypotension, unspecified (6) LV dysfunction: Due to worsening of LV dysfunction pulmonary edema despite of compliance with the medicine it may further warrant exploration with left heart cath once recovered and creatinine is normal. Status: Acute Additional A&P Information Other problems are #1. Anemia #2. Chronic renal insufficiency #3. Status post permanent pacer implantation #4. Dyslipidemia Patient will be treated with the subcu Lovenox, p.o. aspirin, Plavix and statin. In view of the significant drop in the LV systolic function, we may consider doing a cardiac colorization, to further evaluate the coronary status and decide on further management. Is currently on Levophed 5 mics per KG per minute. The goal is to gradually taper him off the Levophed. Based on the clinical progress, further recommendations will be made. Thank for the opportunity to eval this patient make these recommendations. Attestations Medical Necessity Statement*: Patient require continuation hospitalization for above defined care Coding Level of Care Code Established Pt Acute Cigar Head Stringer for g Fwd Patient Type Established History Detailed Exam Detailed Medical Decision Making Moderate Complexity Diagnoses Elevated troponin R77.8 Acute respiratory failure with hypoxia and hypercapnia J96.01; J96.02 Aortic stenosis I35.0 Cardiac valve disease etiology: nonrheumatic Pacemaker Z95.0 Hypotension I95.9 Hypotension type: unspecified hypotension type LV dysfunction I51.9
[2021-04-11] MEDS: azithromycin 500 MG in sodium chloride 0.9% 250 ML 250 MG IV (22:11)
--- NOTE | 2021-04-11 22:35 | PC.NURSE ---
C/O SOB, indicatory wheezing noted to BLL, patient requested breathing treatment, RT notified
[2021-04-11] MEDS: ipratropium-albuterol 3 mL Neb INHALATION (22:44)
--- NOTE | 2021-04-11 23:39 | PC.NURSE ---
patient reported feeling better after Neb tx
[2021-04-12] VITALS (51 sets, daily range): BP systolic 94–124; BP diastolic 44–63; PULSE 60–91; RESP 12–27; TEMP 37–37.4; O2SAT 76–99
[2021-04-12] MEDS: levothyroxine 75 mcg Tablet PO (05:13)
[2021-04-12 05:14] LABS: Basophils # 0.1 10^3/uL (0.0-0.1); Basophils % 0.6 %; Eosinophils # 1.1 10^3/uL (0.0-0.8); Eosinophils % 11.2 %; Hematocrit 31.6 % (42.0-52.0); Hemoglobin 10.4 g/dL (11.7-16.6); Lymphocytes # 1.8 10^3/uL (0.8-4.8); Lymphocytes % 18.7 %; Mean Corpuscular HGB Conc 32.9 g/dL (30.0-36.0); Mean Corpuscular Hemoglobin 31.1 pg (28.0-34.0); Mean Corpuscular Volume 94.6 fl (80-94); Mean Platelet Volume 11.1 fL (7.4-10.4); Monocytes # 0.8 10^3/uL (0.2-0.9); Monocytes % 8.5 %; Neutrophils # 5.96 10^3/uL (1.8-7.7); Neutrophils % 60.5 %; Nucleated Red Blood Cells % 0 %; Platelet Count 216 10^3/cmm (130-400); Red Blood Count 3.34 10^6/uL (4.1-5.3); Red Cell Distribution Width 13.7 % (12.1-15.1); White Blood Count 9.9 10^3/uL (4.0-10.0)
--- NOTE | 2021-04-12 05:22 | PC.NURSE ---
Addendum entered by Sharon Del Rosario RN 04/12/21 19:43: Witnessed 45 mls Fentanyl waste at 0522 04/12/21 with ALYSSA Reyes Original Note: This nurse noted Fentanyl still running on SEP, Pump turned off and not running since approximately 1400 according to previous shift, wasted 45 ml Fentanyl
[2021-04-12 05:34] LABS: Alanine Aminotransferase 11 U/L (0-41); Albumin Level 3.3 g/dL (3.5-5.2); Alkaline Phosphatase 76 IU/L (40-130); Anion Gap 13.6 (5-19); Aspartate Amino Transferase 23 U/L (0-40); Blood Urea Nitrogen 25 mg/dL (8-23); Calcium 8.4 mg/dL (8.5-10.5); Carbon Dioxide 21 mmol/L (22-29); Chloride 101 mmol/L (98-107); Globulin 2.9 g/dL (1.3-4.6); Glucose 97 mg/dL (65-115); Magnesium 2.2 mg/dL (1.7-2.3); Osmolality Calculated 278 mOsm/kg (285-295); Potassium 3.6 mmol/L (3.5-5.1); Sodium 132 mmol/L (136-145); Total Bilirubin 0.4 mg/dL (0.15-1.2); Total Protein 6.2 g/dL (6.6-8.7)
--- NOTE | 2021-04-12 06:43 | XR_ITS ---
WS: [id number] PORTABLE CHEST HISTORY: Respiratory failure. COMPARISON: 04/11/2021 Dual lead LEFT subclavian pacer. Increasing opacification at the RIGHT lung base. This opacification is new since the prior study. Oth erwise mild hyperinflation. No pleural effusion or pneumothorax. Cardiac size: Normal. Mediastinum/Aorta: Mild atherosclerosis aorta. No osseous abnormality seen. XR/XR chest 1V portable 80009 IMPRESSION: 1. New RIGHT basilar pneumonia. 2. Otherwise no change.
--- NOTE | 2021-04-12 07:40 | PM.PN ---
Subjective Subjective: Interval history: Seen and examined this morning in ICU bed 10. Dr. Wooten was also present. Due to creatinine elevation patient might get angiogram as an outpatient. He states he feels well a lot better compared to yesterday. He did state that he felt slightly short of breath but after breathing treatment he felt better. He did tell me yesterday after extubation the 2 days prior to hospital admission he had [employer]. Vitals/I&O/Wt Last Vital Signs Temp 98.9 F 04/12/21 02:00 Pulse 60 04/12/21 06:00 Resp 16 04/12/21 06:00 BP 110/55 04/12/21 06:00 Pulse Ox 94 04/12/21 06:00 04/11/21 04/12/21 04/12/21 22:59 06:59 14:59 Intake Total 484.279 / 609.590 142.030 / 751.620 Output Total 2200 / 2200 1000 / 3200 Balance -1715.721 / -1590.410 -857.970 / -2448.380 Weight last 48 hrs Weight 91.626 kg Weight 90.718 kg Weight 88.451 kg Physical Exam Narrative: EXAM NARRATIVE: General: Alert oriented x3 HEENT: Normocephalic, atraumatic, EOMI, on vent Cardio: Regular rate rhythm, normal S1-S2, no murmurs, Respiratory: Good bilateral air entry, very very mild crackles at the bases right greater than left.. GI: Abdomen soft, nontender, nondistended, bowel sounds + Behavior: Appropriate and cooperative Extremities: no edema, no cyanosis Neuro: Alert oriented talking following commands moving all 4 extremities. Urinary Catheter Management^: Ryan: Cath Placed During This Visit: yes Reason for Continuing Indwelling Catheter: Accurate Measurement of Urinary Output in Critically Ill Patients Urinary Catheter Date of Insertion: 04/09/21 Urinary Catheter Time of Insertion: 21:45 Data : 04/12/21 04:56 04/12/21 04:56 Micro: Microbiology 04/10/21 23:18 MRSA Culture - Final Nose 04/09/21 23:20 Gram Stain - Final Sputum - Endotracheal Tube Aspirate Sputum Culture - Preliminary 04/10/21 16:10 Bacterial Antigens - Final Urine,Clean Catch A&P Assessment and plan (1) Non-ST elevation CO (NSTEMI): Patient presented to emergency room with respiratory distress. He was intubated in the field prior to arrival to the hospital. He had acute flash pulmonary edema. He was given Lasix and responded well to that. He has been intubated sedated in the ICU since yesterday. Patient has diuresed well. There is evidence that his Lasix prescription might have run out from external pharmacy records. Unsure if patient was compliant to Lasix before this hospitalization. Patient was able to be extubated 04/11/2021. After extubation he told me that he had [employer] in the last 2 days. He noticed some weight gain shortness of breath and ended up in the hospital. was present bedside. Echocardiogram revealed a EF of 26%. Previously EF was 35%. Patient has a dual-chamber pacemaker in place. His lab tech is Dr. Griffin. He will probably need evaluation for AICD at this point. Dr. Wooten plans to take patient for angiogram possibly as an outpatient due to elevated creatinine. Continue aspirin, Plavix, statin, Coreg. Continue full dose Lovenox for now. Strict I's and O's, continue to monitor urine output Patient is off vasopressors. Chest x-ray from this morning did show right basilar pneumonia. I will continue him on ceftriaxone azithromycin for now. Bacterial antigens pending, blood cultures negative to date. I will check procalcitonin as well. Continue levothyroxine for hypothyroidism. Fluids: None indicated. Electrolytes: Replete as needed Nutrition: Low-sodium cardiac diet. Activity: Out of bed to chair Disposition: Transferred to cardiac stepdown unit and out of the ICU. Possibly plan for discharge tomorrow GI prophylaxis: Protonix DVT prophylaxis: Patient is on full dose Lovenox for now. Status: Acute (2) Acute respiratory failure with hypoxia and hypercapnia: Status: Acute (3) Chronic kidney disease: Status: Chronic Qualifiers: Chronic kidney disease stage: stage 2 (mild) Qualified Code(s): N18.2 - Chronic kidney disease, stage 2 (mild) (4) Pacemaker: Status: Chronic (5) Aortic stenosis: Status: Chronic Qualifiers: Cardiac valve disease etiology: nonrheumatic Qualified Code(s): I35.0 - Nonrheumatic aortic (valve) stenosis (6) CAD (coronary artery disease): Status: Chronic Qualifiers: Coronary Disease-Associated Artery/Lesion type: [place] artery [place] vs. transplanted heart: [place] heart Associated angina: angina presence unspecified Qualified Code(s): I25.10 - Atherosclerotic heart disease of [place] coronary artery without angina pectoris (7) HTN (hypertension): Status: Chronic Qualifiers: Hypertension type: essential hypertension Qualified Code(s): I10 - Essential (primary) hypertension (8) Pulmonary edema: Status: Acute (9) HLD (hyperlipidemia): Status: Chronic Qualifiers: Hyperlipidemia type: unspecified Qualified Code(s): E78.5 - Hyperlipidemia, unspecified (10) COPD (chronic obstructive pulmonary disease): Status: Chronic Qualifiers: COPD type: unspecified COPD Qualified Code(s): J44.9 - Chronic obstructive pulmonary disease, unspecified (11) Hypothyroidism: Status: Chronic Qualifiers: Hypothyroidism type: unspecified Qualified Code(s): E03.9 - Hypothyroidism, unspecified (12) Shock: Status: Acute Attestations Medical Necessity Statement*: Will be transferred to cardiac stepdown unit today and out of the ICU. Possible discharge tomorrow. Time Spent in Patient Care: 16 - 35 minutes Coding Level of Care Code Acute Hose Inspector And Patcher for Chg Fwd Diagnoses Non-ST elevation CO (NSTEMI) I21.4 Acute respiratory failure with hypoxia and hypercapnia J96.01; J96.02 Chronic kidney disease N18.2 Chronic kidney disease stage: stage 2 (mild) Pacemaker Z95.0 Aortic stenosis I35.0 Cardiac valve disease etiology: nonrheumatic CAD (coronary artery disease) I25.10 Coronary Disease-Associated Artery/Lesion type: [place] artery [place] vs. transplanted heart: [place] heart Associated angina: angina presence unspecified HTN (hypertension) I10 Hypertension type: essential hypertension Pulmonary edema J81.1 HLD (hyperlipidemia) E78.5 Hyperlipidemia type: unspecified COPD (chronic obstructive pulmonary disease) J44.9 COPD type: unspecified COPD Hypothyroidism E03.9 Hypothyroidism type: unspecified Shock R57.9
[2021-04-12] MEDS: docusate sodium 100 mg Capsule PO (09:27)
[2021-04-12] MEDS: cetirizine 10 mg Tablet PO (09:27)
[2021-04-12] MEDS: aspirin 81 mg EC Tablet PO (09:27)
[2021-04-12] MEDS: lactobacillus 1 Tablet 1 TAB PO ×2 (09:27→18:26)
[2021-04-12] MEDS: clopidogrel 75 mg Tablet PO (09:28)
[2021-04-12] MEDS: atorvastatin 40 mg Tablet PO (09:28)
[2021-04-12] MEDS: enoxaparin 80 mg/0.8 mL Syringe SUBCUT ×2 (09:28→20:08)
[2021-04-12] MEDS: FUROsemide 10 mg/mL SDV 4mL 40 MG IVP (09:29)
[2021-04-12] MEDS: pantoprazole 40 mg SDV IVP (09:29)
[2021-04-12] MEDS: cefTRIAXone 1,000 MG in sodium chloride 0.9% (plus) 50 ML 100 MG IV (11:24)
--- NOTE | 2021-04-12 11:27 | PC.NURSE ---
[address] Griffin. Reviewed labs, medications, I&O, and plan of care. Orders to give IV Lasix today, will plan to change to PO tomorrow. Trend creat, plan for angiogram when kidney function stabilizes.
[2021-04-12 11:35] LABS: Procalcitonin 0.14 ng/mL (0-0.5)
--- NOTE | 2021-04-12 11:41 | PC.NURSE ---
Patient's notified of order to move patient to the Cardiac Stepdown Unit. Patient was also updated on patient's status and procedures. Will continue to monitor.
--- NOTE | 2021-04-12 18:08 | P.PN_ITS ---
Subjective Subjective: Interval history: Patient was extubated doing fine from cardiovascular perspective blood pressure is also improved Vitals/I&O/Wt Last Vital Signs Temp 98.6 F 04/12/21 16:30 Pulse 60 04/12/21 16:30 Resp 18 04/12/21 16:30 BP 101/47 04/12/21 16:30 Pulse Ox 95 04/12/21 16:30 04/12/21 04/12/21 04/12/21 06:59 14:59 22:59 Intake Total 142.030 / 751.620 480 / 480 Output Total 1000 / 3200 1700 / 1700 Balance -857.970 / -2448.380 -1700 / -1700 480 / -1220 Weight last 48 hrs Weight 202 lb Weight 200 lb Physical Exam Narrative: EXAM NARRATIVE: GENERAL: Patient is awake and oriented he is sitting and eating in the bed NECK: No jugular vein distension. HEENT: No cyanosis. No icterus. No pallor. HEART: Regular S1 and S2. No murmur, rub or gallop. LUNGS: Clear bilaterally. ABDOMEN: Soft, nontender and nondistended. Positive bowel sounds. No guarding, rebound or tenderness. CENTRAL NERVOUS SYSTEM: Grossly nonfocal. EXTREMITIES: Lower extremities without edema bilaterally. Urinary Catheter Management^: Ryan: Cath Placed During This Visit: yes Reason for Continuing Indwelling Catheter: Accurate Measurement of Urinary Output in Critically Ill Patients Urinary Catheter Date of Insertion: 04/09/21 Urinary Catheter Time of Insertion: 21:45 Data : 04/12/21 04:56 04/12/21 04:56 Micro: Microbiology 04/09/21 23:20 Gram Stain - Final Sputum - Endotracheal Tube Aspirate Sputum Culture - Final 04/10/21 16:21 Urine Culture - Preliminary Urine,Clean Catch 04/10/21 23:18 MRSA Culture - Final Nose A&P Assessment and plan (1) Elevated troponin: Status: Acute (2) Acute respiratory failure with hypoxia and hypercapnia: Resolved. Continue current regimen we will switch patient to p.o. Lasix 40 mg once a day from tomorrow. Status: Acute (3) Aortic stenosis: Mild aortic valve stenosis. Continue to monitor. Status: Chronic Qualifiers: Cardiac valve disease etiology: nonrheumatic Qualified Code(s): I35.0 - Nonrheumatic aortic (valve) stenosis (4) Pacemaker: The pacemaker function appears to be appropriate. Continue at current setting Status: Chronic (5) Hypotension: Improved. Status: Acute Qualifiers: Hypotension type: unspecified hypotension type Qualified Code(s): I95.9 - Hypotension, unspecified (6) LV dysfunction: Due to worsening of LV dysfunction pulmonary edema despite of compliance with the medicine it may further warrant exploration with left heart cath once recovered and creatinine is normal. At this point we will opt and as an outpatient we can proceed with left heart cath. Status: Acute Additional A&P Information Other problems are #1. Anemia #2. Chronic renal insufficiency #3. Status post permanent pacer implantation #4. Dyslipidemia Patient will be treated with the subcu Lovenox, p.o. aspirin, Plavix and statin. In view of the significant drop in the LV systolic function, we may consider doing a cardiac colorization, to further evaluate the coronary status and decide on further management. Is currently on Levophed 5 mics per KG per minute. The goal is to gradually taper him off the Levophed. Based on the clinical progress, further recommendations will be made. Thank for the opportunity to eval this patient make these recommendations. Attestations Medical Necessity Statement*: Patient require continuation hospitalization for above defined care. Coding Level of Care Code Established Pt Acute Boat Crew Deck Hand for Kuldeep Wright Patient Type Established History Detailed Exam Detailed Medical Decision Making Moderate Complexity Diagnoses Elevated troponin R77.8 Acute respiratory failure with hypoxia and hypercapnia J96.01; J96.02 Aortic stenosis I35.0 Cardiac valve disease etiology: nonrheumatic Pacemaker Z95.0 Hypotension I95.9 Hypotension type: unspecified hypotension type LV dysfunction I51.9
[2021-04-12] MEDS: azithromycin 500 MG in sodium chloride 0.9% 250 ML 250 MG IV (21:57)
[2021-04-12] MEDS: carvedilol 3.125 mg Tablet PO (21:57)
[2021-04-13] VITALS (19 sets, daily range): BP systolic 95–116; BP diastolic 44–57; PULSE 60–75; RESP 16–20; TEMP 36.6–37.1; O2SAT 89–99
[2021-04-13 03:33] LABS: Basophils # 0.1 10^3/uL (0.0-0.1); Basophils % 0.7 %; Eosinophils # 1.5 10^3/uL (0.0-0.8); Hematocrit 28.9 % (42.0-52.0); Hemoglobin 9.5 g/dL (11.7-16.6); Lymphocytes # 1.6 10^3/uL (0.8-4.8); Lymphocytes % 18.7 %; Mean Corpuscular HGB Conc 32.9 g/dL (30.0-36.0); Mean Corpuscular Hemoglobin 29.9 pg (28.0-34.0); Mean Corpuscular Volume 90.9 fl (80-94); Mean Platelet Volume 11.4 fL (7.4-10.4); Monocytes # 0.6 10^3/uL (0.2-0.9); Monocytes % 6.8 %; Neutrophils # 4.92 10^3/uL (1.8-7.7); Neutrophils % 56.5 %; Nucleated Red Blood Cells % 0 %; Platelet Count 212 10^3/cmm (130-400); Red Blood Count 3.18 10^6/uL (4.1-5.3); Red Cell Distribution Width 13.4 % (12.1-15.1); White Blood Count 8.7 10^3/uL (4.0-10.0)
[2021-04-13 03:57] LABS: Anion Gap 14.3 (5-19); Blood Urea Nitrogen 24 mg/dL (8-23); Calcium 8.5 mg/dL (8.5-10.5); Carbon Dioxide 23 mmol/L (22-29); Chloride 101 mmol/L (98-107); Glucose 89 mg/dL (65-115); Osmolality Calculated 284 mOsm/kg (285-295); Phosphorus 3.3 mg/dL (2.5-4.5); Potassium 3.3 mmol/L (3.5-5.1); Sodium 135 mmol/L (136-145)
[2021-04-13] MEDS: levothyroxine 75 mcg Tablet PO (05:38)
[2021-04-13] MEDS: potassium chloride oral liq 20 mEq/15 mL UDC 40 MEQ PO (08:06)
[2021-04-13] MEDS: enoxaparin 80 mg/0.8 mL Syringe SUBCUT (08:07)
[2021-04-13] MEDS: losartan 50 mg Tablet 25 MG PO (08:08)
[2021-04-13] MEDS: pantoprazole 40 mg SDV IVP (08:08)
[2021-04-13] MEDS: docusate sodium 100 mg Capsule PO (08:08)
[2021-04-13] MEDS: cetirizine 10 mg Tablet PO (08:08)
[2021-04-13] MEDS: clopidogrel 75 mg Tablet PO (08:09)
[2021-04-13] MEDS: lactobacillus 1 Tablet 1 TAB PO (08:09)
[2021-04-13] MEDS: atorvastatin 40 mg Tablet PO (08:09)
[2021-04-13] MEDS: carvedilol 3.125 mg Tablet PO (08:09)
[2021-04-13] MEDS: aspirin 81 mg EC Tablet PO (08:10)
--- NOTE | 2021-04-13 08:45 | PC.SOCIAL ---
IMM Update pg 2 of IMM updated and reviewed w/ patient. Copy provided.
--- NOTE | 2021-04-13 10:37 | PC.OT ---
OT TREATMENT ATTEMPTED. PATIENT IS UPSET ABOUT NOT SEEING A DOCTOR TODAY. DECLINES ADL ACTIVITIES ; STATING THAT HE WILL JUST WAIT UNTIL HE GETS HOME; WHICH HE STATES WILL BE LATER TODAY.
[2021-04-13] MEDS: FUROsemide 40 mg Tablet PO (12:49)
--- NOTE | 2021-04-13 14:31 | PC.CHAP ---
Pastoral Care Encounter/Spiritual Assessment Type of Contact [xx] Declined lumber sales supervisor visit [] Patient/Family/Request visit [] Outpatient visit [xx] Follow-up visit [] Physician referral [] Code/Alert [xx] Routine visit [] Staff referral [] Actively dying [] Patient sleeping [] Family support [] [] Out of room [] Palliative care [] [] Receiving care in room [] Pre-surgical visit [] Trauma [] Long length of stay [] ICU visit [] Other: Relational/Emotional Strength [] Patient feels connected with others/family/visitors/staff [] Distress [] Loneliness/isolation [] Abandonment Spirituality of Patient [] Person of Cecy [] Attends Restoration of their Cecy [] Believes in Prayer [] Reads Bible or Mormon materials [] There are Spiritual issues to be addressed Photo Editor Interventions [] Prayer [xx] Active listening [] Non-anxious presence [] Spiritual/emotional support [] Crisis/trauma care [] Spiritual counseling [] Bereavement support [] Provided bereavement packet [] Provided Bible/devotional materials [] Provided toy/stuffed animal, coloring book to patient or family member [] Provided Communion [] Anointing/[place] [] Salvation [] Completed spiritual assessment [] Other: Impact on Illness or Injury [] Angry [] Fearful [] Anxious [] Often cries [] Exhaustion [] Unable to work [] Unable to attend buddhism [] Unable to walk/stand [] Unable to read [] Unable to drive [] Unable to eat/drink [] Unable to sleep [] Unable to be with family [] Patient intubated [] Other: Summary Patient declined lumber sales supervisor visit because he stated he can't hear. Time spent with patient 2 minutes
--- NOTE | 2021-04-13 15:36 | P.DS_ITS ---
Discharge Providers Date of Admission: 04/10/21 01:26 Date of Discharge: April 13, 2021 Attending Provider at Admission: Dina Kuo MD Attending Provider at Discharge: Teressa Glover MD Primary Care Provider: Gregorio Cunningham DO Diagnoses at Discharge Discharge Diagnosis (1) Elevated troponin: Status: Acute (2) Acute respiratory failure with hypoxia and hypercapnia: Status: Acute (3) Aortic stenosis: Status: Chronic Permanent problem details: Echo 10/01 with mild aortic stenosis, MEGHANA 1.6 cm2, mean gradient 11.6 mmHg, peak velocity 2.4 m/sec Qualifiers: Cardiac valve disease etiology: nonrheumatic Qualified Code(s): I35.0 - Nonrheumatic aortic (valve) stenosis (4) Pacemaker: Status: Chronic Permanent problem details: Medtronic (5) Hypotension: Status: Acute Qualifiers: Hypotension type: unspecified hypotension type Qualified Code(s): I95.9 - Hypotension, unspecified (6) LV dysfunction: Status: Acute Reason for Visit Reason for Visit: RESP. DISTRESS Hospital Course Hospital Course HPI as per Dr. Kuo Juarez Delgado is a 75 year old male who presented to the emergency room with respiratory distress. He was brought in by ambulance intubated so history is limited. According to the emergency room physician, EMS reported that patient was in significant respiratory distress in the field. He was also hypertensive with systolic pressure greater than 200 initially. He was tried on BiPAP but ultimately intubated in route due to persistent hypoxemia and degree of distress. On arrival here systolic pressures were in the 120s. He received a dose of Lasix and has had more than a liter out since then. 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 He had a pacemaker placed earlier this year. He does have known hypertension and hyperlipidemia as well. In review of records does not generally show hypertensive emergency as described by EMS at this time. While in the emergency room he is actually had low normal blood pressures and occasionally hypotension. He was initially put on nitroglycerin drip that later had to be stopped. He was transiently on some Levophed. Blood pressures improved with adjustments in his sedation. Review of old records indicates he has had prior intubations for what was described as acute pulmonary edema. No further information is currently available regarding recent history. No reports of chest pain described. 2-hour troponin with a delta of 11. Twelve-lead EKG with paced rhythm and some ST depression in leads I and aVL. Rapid Covid antigen was negative. Course: Course: Patient came into the hospital and was intubated in the field on April 10, 2021. He was able to be extubated by 04/11/2021. Patient also required vasopressors while in the ICU. Eventually they were weaned off. Once patient was extubated he stated that he had KFC 2 days prior to this hypoxic and pulmonary edema event. Patient was on minimal vent settings during ICU stays. He was diuresed aggressively with IV Lasix. Patient repeat echo showed EF of 26%. He will also need to be evaluated for an AICD as an outpatient. He is now back to baseline. Home O2 evaluation was also done which is negative. Cardiology saw the patient in consultation and plans to do an angiogram as an outpatient. Patient was discharged today on Lasix 60 daily. His prior dose at home was 40 daily. Potassium 10 mEq daily was also added. Patient to see Chayo Carlos in [address] Ramos in 4 weeks. Discharge plan was discussed with cardiology and they are in agreement. is present at bedside and discharge plan was discussed with her as well. Ryan was removed prior to discharge. Physical Exam Narrative: EXAM NARRATIVE: General: Alert oriented x3, present at bedside patient appearing very comfortable and cracking jokes HEENT: Normocephalic, atraumatic, EOMI, on vent Cardio: Regular rate rhythm, normal S1-S2, no murmurs, Respiratory: Good bilateral air entry, lungs clear to auscultation bilaterally. GI: Abdomen soft, nontender, nondistended, bowel sounds + Behavior: Appropriate and cooperative Extremities: no edema, no cyanosis Neuro: No focal neurologic deficits. Urinary Catheter Management^: Ryan: Cath Placed During This Visit: yes Reason for Continuing Indwelling Catheter: Accurate Measurement of Urinary Output in Critically Ill Patients Urinary Catheter Date of Insertion: 04/09/21 Urinary Catheter Time of Insertion: 21:45 Discharge Data Data Completed and Pending: Completed Studies During Hospitalization Category Date Time Status XR chest 1V tobias ble [id number] Routine Exams 04/10/21 18:26 Completed XR chest 1V tobias ble [id number] Routine Exams 04/11/21 06:00 Completed XR chest 1V tobias ble [id number] Routine Exams 04/12/21 06:43 Completed XR chest 1V tobias ble [id number] Stat Exams 04/09/21 21:32 Completed CV. echo complete * [id number] Routine Ultrasound 04/10/21 07:35 Completed Pending at discharge Category Date Time Status Blood Culture Sta t Lab 04/09/21 23:21 Results Immunochemical Fe carmen OCB Routine Lab 04/10/21 07:35 Uncollected Labs from last 24 hours 04/13/21 04/13/21 03:10 03:10 WBC 8.7 RBC 3.18 L Hgb 9.5 L Hct 28.9 L MCV 90.9 MCH 29.9 MCHC 32.9 RDW 13.4 Plt Count 212 MPV 11.4 H Neut % (Auto) 56.5 Lymph % (Auto) 18.7 [place] % (Auto) 6.8 Eos % (Auto) 17.0 Baso % (Auto) 0.7 Neut # (Auto) 4.92 Lymph # (Auto) 1.6 [place] # (Auto) 0.6 Eos # (Auto) 1.5 H Baso # (Auto) 0.1 Nucleated RBC % (a uto) 0 Nucleated RBCs # 0.0 Sodium 135 L Potassium 3.3 L Chloride 101 Carbon Dioxide 23 Anion Gap 14.3 BUN 24 H Creatinine 1.4 H GFR Calculation Not Reportable Glucose 89 Calculated Osmolal ity 284 L Calcium 8.5 Phosphorus 3.3 Magnesium 2.0 Vitals: Last Vital Signs Temp 97.9 F 04/13/21 11:55 Pulse 65 04/13/21 12:00 Resp 16 04/13/21 11:55 BP 98/44 04/13/21 11:55 Pulse Ox 96 04/13/21 11:55 Discharge Plan Discharge Patient Disposition: Home Condition: Stable Prescriptions: New Lasix 20 mg tablet 20 mg PO DAILY 30 Days Qty: 30 RF: 0 potassium chloride 10 mEq tablet extended release 10 meq PO DAILY 30 Days Qty: 30 RF: 0 Continued nitroglycerin [Nitrostat] 0.4 mg tablet, sublingual 0.4 mg sublingual Q5M PRN (Reason: chest pain) Qty: 25 RF: 3 clopidogrel 75 mg tablet 75 mg PO QAM Qty: 90 RF: 3 aspirin 81 mg Tablet,Delayed Release (Dr/Ec) 81 mg PO QAM RF: 0 levothyroxine [Synthroid] 75 mcg Tablet 75 mcg PO QAM RF: 0 spironolactone 25 mg tablet 25 mg PO QAM RF: 0 carvedilol 3.125 mg tablet 3.125 mg PO BID RF: 0 atorvastatin 40 mg Tablet 40 mg PO QAM Qty: 0 RF: 4 Zyrtec 10 mg Tablet 10 mg PO DAILY RF: 0 losartan 25 mg tablet 25 mg PO QAM RF: 0 Changed furosemide 40 mg tablet 40 mg PO QAM 30 Days Qty: 30 RF: 0 Discharge Orders: Discharge Order (Routine); Ordered 04/13/21 Ordered By: Teressa Glover Referrals: Francisco Griffin MD [Physician] - 1 month (You need to follow-up with Dr. Griffin on Friday, May 14 at 2:30 pm. If you need to re-schedule this, Please call them at [phone]. Thank You.) Chayo Carlos FNP [Nurse Practitioner] - 1 week (You need to see Chayo Carlos on April 20 at 11:30 am. If you need to re-schedule this, Please call them at [phone]. Thank You.) Gregorio Cunningham DO [Primary Care Provider] - 1 week (You need to follow-up with your PCP in 1 week. If you have not heard from them by friday afternoon. Please call them at [phone]. Thank You.) Discharge Diet: Cardiac, Low Salt and Low Cholesterol Discharge Activity: Increase activity as tolerated Patient Instructions: Pulmonary Edema (DC), Heart Healthy Diet (DC), Hypotension (DC), CHF Stoplight, Opioid Safety Activity Restrictions/Additional Instructions: Check your Blood pressure everyday. keep a record of it. Check for any increase swelling on your legs, weight gain. If any increasing chest pain or shortness of breath without relieve by meds call 911 and come to ER. Discharge Attestations Time Spent in Discharge Care*: greater than 30 min Status at Discharge: Cognitive status at discharge: cognitively intact , Behavioral status at discharge: cooperative , Functional status at discharge: independent ambulation Overall status at discharge: patient is back to baseline Quality Metrics Clinical Quality Measures During this hospital stay, did patient experience: None Coding Level of Care Code Acute Chg FW DC note Diagnoses Elevated troponin R77.8 Acute respiratory failure with hypoxia and hypercapnia J96.01; J96.02 Aortic stenosis I35.0 Cardiac valve disease etiology: nonrheumatic Pacemaker Z95.0 Hypotension I95.9 Hypotension type: unspecified hypotension type LV dysfunction I51.9
--- NOTE | 2021-04-16 08:58 | PC.SOCIAL ---
discharge follow up call made. unable to obtain information from patient. patient hung up the phone on automobile service writer twice. all patient states is im doing what the doctor says
== END 2021-04-13 17:21 | disposition home health service (06) | DRG 208 ==
LOC: ER 23:24 → ER IP 04-10 01:25 → ICU 04-10 11:20 → CSU 04-12 12:12
PROVIDERS: Admitting Provider Hospitalist; Emergency Provider Emergency Medicine; PCP Electrodiagnostic Medicine; Visit Provider Internal Medicine
DX: J96.01 Acute respiratory failure with hypoxia (principal); J18.9 Pneumonia, unspecified organism; I21.A1 Myocardial infarction type 2; J81.0 Acute pulmonary edema; I50.23 Acute on chronic systolic (congestive) heart failure; R57.9 Shock, unspecified; J96.02 Acute respiratory failure with hypercapnia; J44.9 Chronic obstructive pulmonary disease, unspecified; I25.10 Atherosclerotic heart disease of native coronary artery without angina pectoris; I51.9 Heart disease, unspecified; E78.5 Hyperlipidemia, unspecified; I25.5 Ischemic cardiomyopathy; I35.0 Nonrheumatic aortic (valve) stenosis; I12.9 Hypertensive chronic kidney disease with stage 1 through stage 4 chronic kidney disease, or unspecified chronic kidney disease; N18.2 Chronic kidney disease, stage 2 (mild); D63.1 Anemia in chronic kidney disease; E03.9 Hypothyroidism, unspecified; F17.210 Nicotine dependence, cigarettes, uncomplicated; E87.70 Fluid overload, unspecified; Z85.828 Personal history of other malignant neoplasm of skin; Z95.5 Presence of coronary angioplasty implant and graft; Z95.0 Presence of cardiac pacemaker; Z79.02 Long term (current) use of antithrombotics/antiplatelets
CPT/HCPCS: 36415; 36600; 51702; 71045; 80048; 80051; 80053; 80061; 81001; 82330; 82550; 82728; 82803; 82805; 83540; 83550; 83605; 83690; 83735; 83880; 84100; 84145; 84484; 85025; 85378; 85610; 85730; 86403; 87040; 87070; 87086; 87205; 87426; 87635; 87641; 93005; 93306; 94002; 94003; 94640; 94664; 94799; 96365; 96366; 96367; 96372; 96375; 96376; 97116; 97162; 97165; 99291; C9113; J0456; J0696; J1650; J1940; J2704; J3010; J3490; J7050

== ENCOUNTER → 2021-11-13 14:37 | Outpatient (BNVA) | payer MEDICARE, SELFPAY | PROVIDERS: PCP Electrodiagnostic Medicine; Visit Provider Internal Medicine | DX: I11.9 Hypertensive heart disease without heart failure (principal); I25.10 Atherosclerotic heart disease of native coronary artery without angina pectoris; I35.0 Nonrheumatic aortic (valve) stenosis; Z95.0 Presence of cardiac pacemaker; F17.210 Nicotine dependence, cigarettes, uncomplicated | CPT/HCPCS: 99214 ==

== ENCOUNTER 2021-12-19 06:13 | Outpatient (CLI) | payer MEDICARE, SELFPAY ==
--- NOTE | 2021-12-19 07:00 | USCV_ITS ---
Juarez Delgado Age: 76 Gender: M : 1945 Exam Date: 12/19/2021 06:32 Ordering Phys: Jhonathan Jara M.D ([email or web address]) Technologist: RONAN Exam Location: [facility] [place] Indication: EVALUATE FOR EF, LIMITED ONLY WITH CONTRAST BP: 106 / 57 HR: Rhythm: Sinus Technical Quality: Adequate MEASUREMENTS (Male / Female) Normal Values 2D ECHO LV Diastolic Diameter PLAX 6.8 cm 4.2 - 5.9 / 3.9 - 5.3 cm LV Systolic Diameter PLAX 5.7 cm IVS Diastolic Thickness 1.0 cm 0.6 - 1.0 / 0.6 - 0.9 cm IVS Systolic Thickness 1.2 cm LVPW Diastolic Thickness 1.0 cm 0.6 - 1.0 / 0.6 - 0.9 cm LVPW Systolic Thickness 1.5 cm LVOT Diameter 2.0 cm LV Ejection Fraction 2D Teich 34.1 % LV Ejection Fraction MOD 2C 14.3 % LV Ejection Fraction 2C AL 14.9 % LA Diameter 3.8 cm LA Width 3.2 cm LA Height 4.9 cm RA Width 4.2 cm RA Height 3.9 cm Aorta at Sinotubular Diameter 2.3 cm IVC Diameter 1.5 cm M-MODE Aortic Annulus Diameter 2.9 cm LA Ao Ratio MM 1.1 MV E Point Septal Separation 2.5 cm DOPPLER Right Atrial Pressure 3.0 mmHg FINDINGS Left Ventricle Right Ventricle Right Atrium Left Atrium Mitral Valve Aortic Valve Tricuspid Valve Pulmonic Valve Pericardium Aorta IVC CONCLUSIONS This is a limited echocardiogram performed to assess LV systolic function. LV is dilated LV systolic function is severely reduced with EF of 20 to 25%. Severe global hypokinesis is seen. Compared to prior echocardiogram from 04/10/2021, no significant change is seen in LV function. Jhonathan Jara MD (Electronically Signed) Final Date: 25 December 2021 16:11 S
[2021-12-19] MEDS: perflutren protein-a microsphr 0.22 mg/mL SDV 3 mL IV (07:10)
== END 2021-12-19 06:14 | disposition home or self-care (01) ==
LOC: RAD 06:16
PROVIDERS: PCP Electrodiagnostic Medicine; Visit Provider Internal Medicine
DX: I50.9 Heart failure, unspecified (principal)
CPT/HCPCS: C8924

== ENCOUNTER → 2022-01-08 12:56 | Outpatient (BNVA) | payer MEDICARE, SELFPAY | PROVIDERS: PCP Electrodiagnostic Medicine; Visit Provider Thoracic Surgery (Cardiothoracic Vascular Surgery) | DX: I51.9 Heart disease, unspecified (principal); F17.210 Nicotine dependence, cigarettes, uncomplicated | CPT/HCPCS: 99213 ==

== ENCOUNTER 2022-01-22 12:29 | Observation (INO) | payer MEDICARE, SELFPAY ==
[2022-01-21 09:50] VITALS: BMI 23.0
[2022-01-22] VITALS (13 sets, daily range): BP systolic 104–128; BP diastolic 51–63; PULSE 57–72; RESP 14–18; TEMP 36.1–36.8; O2SAT 10–99
--- NOTE | 2022-01-22 | SCC_ITS ---
Procedure done: AICD implantation 52.3 seconds of fluoroscopic guidance, for a cumulative dose of 11.96 mGy, was provided to Dr. Payne by the radiology department. C-arm images of the chest were saved for the patient's permanent record. MTDD
--- NOTE | 2022-01-22 07:56 | SC_ITS ---
WS: [id number] INTRAOPERATIVE TECHNIQUE: 2 Spot fluoroscopic images for intraoperative purposes. FLUOROSCOPY TIME: 52.3 seconds CLINICAL INFORMATION: AICD implantation COMPARISON: None. FINDINGS: Intraoperative fluoroscopy used for AICD placement. SC/C-arm FL for Pacemaker IMPRESSION: Images obtained for intraoperative purposes.
[2022-01-22 08:54] LABS: Basophils # 0.1 10^3/uL (0.0-0.1); Basophils % 0.9 %; Eosinophils # 1.1 10^3/uL (0.0-0.8); Eosinophils % 10.7 %; Hematocrit 40.3 % (42.0-52.0); Hemoglobin 13.6 g/dL (11.7-16.6); Lymphocytes # 1.6 10^3/uL (0.8-4.8); Lymphocytes % 15.3 %; Mean Corpuscular HGB Conc 33.7 g/dL (30.0-36.0); Mean Corpuscular Hemoglobin 31.4 pg (28.0-34.0); Mean Corpuscular Volume 93.1 fl (80-94); Mean Platelet Volume 11.3 fL (7.4-10.4); Monocytes # 0.9 10^3/uL (0.2-0.9); Monocytes % 8.2 %; Neutrophils # 6.85 10^3/uL (1.8-7.7); Neutrophils % 64.7 %; Nucleated Red Blood Cells % 0 %; Platelet Count 222 10^3/cmm (130-400); Red Blood Count 4.33 10^6/uL (4.1-5.3); Red Cell Distribution Width 12.9 % (12.1-15.1); White Blood Count 10.6 10^3/uL (4.0-10.0)
[2022-01-22] MEDS: sodium chloride 0.9% 1,000 ML 30 ML IV (09:03)
--- NOTE | 2022-01-22 09:07 | W.PM.OPSUD ---
Surgery/Procedure H&P Update DATE OF PROCEDURE: January 22, 2022 DATE H&P PERFORMED: 01/08/22 H&P UPDATE INFORMATION: I have reviewed H&P completed within last 30 days, I have examined patient prior to procedure and No changes to prior documentation PREOP DIAGNOSIS: Medically refractory cardiomyopathy PLANNED PROCEDURE: Operation Date: 01/22/22 09:30 Proposed Procedures p Defibrillator Placement/cardio myop(Not Applicable) - Peter Payne MD
--- NOTE | 2022-01-22 09:25 | ANES.PREANE2 ---
Pre-Anesthetic Assessment Height/Weight: Height 1.83 m Weight 77.111 kg Temp Pulse Resp BP Pulse Ox 97.6 F 62 14 104/53 10 L 01/22/22 08:14 01/22/22 08:14 01/22/22 08:14 01/22/22 08:14 01/22/22 08:14 Preop Diagnosis: Medically refractory cardiomyopathy Operation Date: 01/22/22 09:30 Proposed Procedures p Defibrillator Placement/cardio myop(Not Applicable) - Peter Payne MD Familial anesthetic complications: none Was Beta Melodie taken within 24 hours: Yes Was Clonidine taken within 24 hours: N/A Last intake: Intake Last Liquid Date 01/21/22 Last Liquid Time 18:00 Last Solid Date 01/21/22 Last Solid Time 18:00 Social Tobacco and No alcohol Exam alert, oriented x 3 and regular rate & rhythm Airway Submandibular: within normal limits Cervical ROM: within normal limits Mallampati: Class II Dentition: false Pulmonary Chronic Obstructive Pulmonary Disease CV/HEM Anemia, Coronary Artery Disease, Congestive Heart Failure, Hypertension, Myocardial Infarction and Murmur () This is a limited echocardiogram performed to assess LV systolic ?function. ?LV is dilated ?LV systolic function is severely reduced with EF of 20 to 25%.? ?Severe global hypokinesis is seen. ?Compared to prior echocardiogram from 04/10/2021, no significant ?change is seen in LV function. (From January 02) Metabolic Hyperlipidemia and Thyroid Disease Anesthetic Plan ASA status: 3 Anesthesia: Choice Medications/Allergies Home Medications Medication Instructions Recorded Confirmed Last Taken Type aspirin 81 mg tablet,delayed 81 mg PO QAM 08/25/19 01/22/22 01/21/22 History release levothyroxine 75 mcg tablet 75 mcg PO QAM 08/25/19 01/22/22 01/22/22 06:00 History (Synthroid) furosemide 40 mg tablet 60 mg PO DIRECTED #135 tab 05/14/21 01/22/22 01/21/22 Rx carvedilol 3.125 mg tablet 3.125 mg PO BID #60 tab 07/23/21 01/22/22 01/22/22 06:00 Rx atorvastatin 40 mg tablet 40 mg PO QAM #90 tab 11/01/21 01/22/22 01/21/22 Rx spironolactone 25 mg tablet 25 mg PO QAM #90 tab 12/03/21 01/22/22 01/21/22 Rx nitroglycerin 0.4 mg sublingual 0.4 mg SUBLINGUAL Q5M PRN #25 tab 12/12/21 01/22/22 01/11/22 Rx tablet (Nitrostat) clopidogrel 75 mg tablet (Plavix) 75 mg PO QAM 01/22/22 01/21/22 01/17/22 History Allergies Allergy/AdvReac Type Severity Reaction Status Date / Time No Known Allergies Allergy Verified 01/21/22 09:43 Current Medications Generic Name Dose Route Start Last Admin Trade Name Freq PRN Reason Stop Dose Admin Sodium Chloride 1,000 mls @ 30 mls/hr 01/22/22 08:00 01/22/22 09:03 Sodium Chloride 0.9% IV 01/23/22 07:59 30 mls/hr .Q24H DAVID Administration PFSH Anesthesia Medical History Aortic stenosis Echo 10/01 with mild aortic stenosis, MEGHANA 1.6 cm2, mean gradient 11.6 mmHg, peak velocity 2.4 m/sec CAD (coronary artery disease) Angiogram August 2019 demonstrated EF around 35%, LAD chronic occlusion, first obtuse marginal 60% stenosis, RCA ulcerated 90% stenosis which was stented Chronic kidney disease COPD (chronic obstructive pulmonary disease) Erectile dysfunction HLD (hyperlipidemia) HTN (hypertension) Hypothyroidism Ischemic cardiomyopathy Squamous cell carcinoma skin of arm Tobacco abuse Surgical History Pacemaker Medtronic S/P PTCA (percutaneous transluminal coronary angioplasty) August 2019 Family History Brother CAD (coronary artery disease) Social History Smoking and tobacco status: current every day smoker cigarettes Packs smoked per day: 1 Years cigarettes smoked: 50 Alcohol intake: current Alcohol intake frequency: few times a month Data Anesthesia : 01/22/22 08:40 01/22/22 09:10 Short CBC 01/22/22 Range/Units 08:40 WBC 10.6 H (4.0-10.0) 10^3/uL Hgb 13.6 (11.7-16.6) g/dL Hct 40.3 L (42.0-52.0) % MCV 93.1 (80-94) fl Plt Count 222 (130-400) 10^3/cmm Neut % (Auto) 64.7 % Neut # (Auto) 6.85 (1.8-7.7) 10^3/uL BMP 01/22/22 08:40 Sodium Cancelled Potassium Cancelled Chloride Cancelled Carbon Dioxide Cancelled BUN Cancelled Creatinine Cancelled Glucose Cancelled Calcium Cancelled Cardiac Enzymes 01/22/22 Range/Units 08:40 NT-Pro-B Natriuret Pep Cancelled Cardiac Studies: Echocardiogram 12/19/21
[2022-01-22 09:48] LABS: Add Urine Microscopic? NO; Charge for UA Resulting for Rev
[2022-01-22 10:03] LABS: Bilirubin Urine Neg (Negative); Blood Urine Neg (Negative); Glucose Urine UA Norm (Normal); Ketones Urine Negative (Negative); Leukocyte Esterase Urine Negative (Negative); Nitrate Urine Negative (Negative); Protein Urine Neg (Negative); Urine Appearance Clear (CLEAR); Urine Color Yellow (Yellow); Urobilinogen Urine Norm (Negative); pH Urine 5 (5-7)
[2022-01-22 10:44] LABS: Anion Gap 16.9 (5-19); Blood Urea Nitrogen 30 mg/dL (8-23); Carbon Dioxide 23 mmol/L (22-29); Chloride 104 mmol/L (98-107); Glucose 106 mg/dL (65-115); NT Pro B Type Natriuretic Pept 1466 pg/mL (0-450); Osmolality Calculated 295 mOsm/kg (285-295); Potassium 4.9 mmol/L (3.5-5.1); Sodium 139 mmol/L (136-145)
[2022-01-22] MEDS: ceFAZolin 2,000 MG in sodium chloride 0.9% (plus) 50 ML 100 MG IV (10:54)
[2022-01-22] MEDS: ceFAZolin 1,000 mg SDV 1000 MG IRRIGATION (11:22)
[2022-01-22] MEDS: lidocaine 2% INJ 20 mL INJECTION (11:23)
--- NOTE | 2022-01-22 12:40 | PM.OP ---
Operative Report Date of procedure: January 22, 2022 Pre-op diagnosis: Preop Diagnosis Medically refractory cardiomyopathy Post-op diagnosis: same Procedure done: AICD implantation Implants: AICD generator and RV lead Pathology: none sent Surgeon: Peter Payne Anesthesia: MAC and Local Complications: none Condition: stable Disposition: PACU Brief History: Mr. Delgado is a 76-year-old gentleman with medically refractory cardiomyopathy. He is status post dual-chamber pacemaker implantation back in October 2020 following percutaneous intervention to the obtuse marginal branch of the circumflex artery with postprocedural heart block requiring temporary pacemaker. He currently remains pacer dependent. During continued cardiology follow-up, his ejection fraction has decreased from 40% down to approximately 20/25%. Therefore, upgrade to AICD implantation was recommended by our cardiology service. Rationale for this was carefully discussed, appropriate consents have been reviewed and signed. Procedure: Mr. Delgado was taken to the operating room theater and carefully positioned on the OR table. He underwent IV conscious sedation anesthesia monitoring. His entire left chest was sterilely prepped and draped. 1% lidocaine was infiltrated over the prior incision site at which time #15 scalpel blade was utilized to incise through the skin down to the level of the pseudocapsule which was opened with a #15 scalpel blade thereby exposing the pacing generator and wires. These were dissected free from the pseudocapsule. Next, while the patient was in deep Trendelenburg position, utilizing modified Seldinger technique, the left subclavian vein was engaged with a introducer needle and a guidewire was placed under fluoroscopic guidance. The patient was returned to the supine position. Next a dilator and sheath were placed over the guidewire which time the dilator and guidewire were removed. Following this, utilizing a combination of curved and straight stylets, the defibrillating RV lead was placed into position under fluoroscopic guidance with the distal fixation screw advanced. On table interrogation was performed and revealed appropriate parameters. Next, the pacemaker subcutaneous pocket was enlarged to accommodate the new AICD. Hemostasis was confirmed. Wound was irrigated with antibiotic solution. Next, the defibrillator was brought into the field. Initially the new defibrillating RV lead was connected to defibrillator to provide capture this was confirmed. Next, the atrial lead was removed from the pacemaker and placed into the AICD generator and secured. The remaining RV lead and the pacemaker was removed from the pacemaker and a securing silicone Was placed and secured. On table parameters were confirmed to be adequate. Next, the leads and generator were placed into the subcutaneous pocket. Hemostasis was confirmed. The wound was then closed in multiple layers of 3-0 Vicryl sutures. Skin was reapproximated with 3-0 Monocryl suture followed by Dermabond. A 2 layer sterile/pressure dressing was then applied. Left arm was placed into a shoulder immobilizer. Mr. Delgado was awakened from IV conscious sedation and then transferred to the PACU. I did assessment counselor with family completion of the procedure. He will be admitted for observation overnight to continue antibiotic therapy and repeat interrogation in the morning. He tolerated the procedure well. [employer] generator model: [id number] serial # [id number] Right ventricular lead model: 6935M 62 cm Serial # [id number] RV lead had a sensing of 9.9 mV with an impedance of 619 ohms. Threshold was 0.8 V.
--- NOTE | 2022-01-22 12:54 | XRR_ITS ---
PROCEDURE INFORMATION: Exam: XR Chest Exam date and time: 01/22/2022 1:02 PM Age: 76 years old Clinical indication: Device placement; Cardiac defibrillator lead placement or adjustment; Additional info: Post defibrillator placement TECHNIQUE: Imaging protocol: Radiologic exam of the chest. Views: 1 view. COMPARISON: CR XR chest 1V portable [id number] 04/12/2021 5:30 AM FINDINGS: Tubes, catheters and devices: New pacemaker lead. Lungs: Unremarkable. No consolidation. Pleural spaces: Unremarkable. No pleural effusion. No pneumothorax. Heart/Mediastinum: Cardiomegaly. Bones/joints: Unremarkable. XR/XR chest 1V portable [id number] IMPRESSION: No acute findings. New pacemaker lead.
--- NOTE | 2022-01-22 13:00 | SUR.PHASEI ---
1240 PT TO PACU AWAKE ALERT PLAED ON 2LNC, PT TALKATIVE, DENIES PAIN AND NAUSEA, IV TO RT HAND #18 WITH NS 400ML UP AT KVO RATE PER GRAVITY. ID BRACELET TO LT WRIST , PT ID'D WITH 2 IDENTIFIERS, MONITOR PACED AT 60'S NO ECTOPY NOTED VSS. DRESSING TO CHEST PRESSURE DRESSING D/I ARM IMMOBILIZER IN PLACE. DISTAL HAND PINK WARM 1303 X RAY HERE PT TAKATIVE WANTS SOMETHING TO DRINK, DR STOVER AT BEDSIDE.
--- NOTE | 2022-01-22 13:09 | SUR.PHASEI ---
PT AWAKE ALERT DR STOVER TALKED WITH FAMILY, MONITOR 100% PACED , X RAY CHECKED BY DR STOVER PT OK TO GO TO FLOOR, PT TO FLOOR PER CART WITH RN.
[2022-01-22] MEDS: HYDROcodone-acetaminophen 5-325 mg Tablet 1 TAB PO (13:47)
--- NOTE | 2022-01-22 15:35 | ANE.PACU2 ---
Inpatient post-anesthesia follow up: Airway intact: Yes Vital signs: Temperature 98.1 F Pulse Rate 60 Respiratory Rate 17 Blood Pressure 108/51 Pulse Oximetry 99 Oxygen Delivery Me thod Nasal Cannula Oxygen Flow Rate 2 Fraction of Inspir ed Oxygen Hydration adequate: Yes Nausea and vomiting: No Pain level: 2 Mental status: Baseline
[2022-01-22] MEDS: carvedilol 3.125 mg Tablet PO (21:32)
[2022-01-22] MEDS: ceFAZolin 1,000 MG in sodium chloride 0.9% (plus) 50 ML 100 MG IV (21:37)
[2022-01-23] VITALS: BP 109/54; PULSE 61; RESP 16; TEMP 36.7; O2SAT 96
[2022-01-23] MEDS: ceFAZolin 1,000 MG in sodium chloride 0.9% (plus) 50 ML 100 MG IV (03:08)
[2022-01-23 04:00] VITALS: BP 105/64; PULSE 59; RESP 17; TEMP 36.8; O2SAT 94
[2022-01-23 05:52] VITALS: PULSE 66
--- NOTE | 2022-01-23 06:27 | PM.DCS ---
Discharge Providers Date of Admission: 01/22/22 12:29 Date of Discharge: January 23, 2022 Attending Provider at Admission: Peter Payne MD Attending Provider at Discharge: Peter Payne MD Primary Care Provider: Gregorio Cunningham DO Reason for Visit Reason for Visit: cardio myopathy Brief History: Mr. Delgado is a 76-year-old gentleman with medically refractory cardiomyopathy with most recent echocardiogram revealing ejection fraction of 20 to 25% despite maximal medical management. He is status post dual-chamber pacemaker implantation October 2020 following interventions for coronary artery disease with subsequent heart block. His ejection fraction has decreased from that period of time from 40%, now to 20%. AICD implantation has been recommended by our cardiology colleagues as prophylaxis due to his depressed ejection fraction. Rationale was carefully discussed with Mr. Delgado and he is in agreement. Hospital Course Hospital Course Mr. Delgado was electively admitted on January 22 and underwent upgrading of his dual chamber pacemaker with addition of a coiled lead, enlargement of his pacemaker pocket, and implantation of an AICD. Postop day, he has done well and is resting comfortably on the [place] receiving routine postoperative prophylactic antibiotics. He has had minimal postoperative discomfort. His dressings are clean and dry this morning there is no evidence for substantial swelling or evidence for infection. He is eager for discharge home. He will be discharged today in stable condition. He will continue outpatient prophylactic antibiotics and be scheduled to follow-up in [facility] pacemaker clinic in 1 week. Discharge instructions have been reviewed with him as well as incision care instructions. Physical Exam Chest: OTHER: Surgical site is clean and dry. There is no evidence for substantial swelling or fluid collection. Only modest local tenderness. Resp: COMMON NORMALS: normal respiratory effort and clear to auscultation bilaterally AUSCULTATION: clear to auscultation bilaterally Cardio: COMMON NORMALS: regular rate, regular rhythm and No murmurs present (Cardio) RATE: regular rate RHYTHM: regular rhythm GI: COMMON NORMALS: Normal to inspection, nondistended, normoactive bowel sounds present Extremity: COMMON NORMALS: no clubbing, cyanosis or edema Discharge Data Studies Completed and Pending Completed Studies During Hospitalization Category Date Time Status CXRP [XR chest 1V portable [id number]] Routine Exams 01/22/22 12:54 Completed Radiology Impressions C-Arm Fluoroscopy 01/22/22 07:56 IMPRESSION: Images obtained for intraoperative purposes. Chest X-Ray 01/22/22 12:54 IMPRESSION: No acute findings. New pacemaker lead. Laboratory Results WBC 10.6 10^3/uL (4.0-10.0) H 01/22/22 08:40 RBC 4.33 10^6/uL (4.1-5.3) 01/22/22 08:40 Hgb 13.6 g/dL (11.7-16.6) 01/22/22 08:40 Hct 40.3 % (42.0-52.0) L 01/22/22 08:40 MCV 93.1 fl (80-94) 01/22/22 08:40 MCH 31.4 pg (28.0-34.0) 01/22/22 08:40 MCHC 33.7 g/dL (30.0-36.0) 01/22/22 08:40 RDW 12.9 % (12.1-15.1) 01/22/22 08:40 Plt Count 222 10^3/cmm (130-400) 01/22/22 08:40 MPV 11.3 fL (7.4-10.4) H 01/22/22 08:40 Neut % (Auto) 64.7 % 01/22/22 08:40 Lymph % (Auto) 15.3 % 01/22/22 08:40 [place] % (Auto) 8.2 % 01/22/22 08:40 Eos % (Auto) 10.7 % 01/22/22 08:40 Baso % (Auto) 0.9 % 01/22/22 08:40 Neut # (Auto) 6.85 10^3/uL (1.8-7.7) 01/22/22 08:40 Lymph # (Auto) 1.6 10^3/uL (0.8-4.8) 01/22/22 08:40 [place] # (Auto) 0.9 10^3/uL (0.2-0.9) 01/22/22 08:40 Eos # (Auto) 1.1 10^3/uL (0.0-0.8) H 01/22/22 08:40 Baso # (Auto) 0.1 10^3/uL (0.0-0.1) 01/22/22 08:40 Nucleated RBC % (auto) 0 % 07/12/22 08:40 Nucleated RBCs # 0.0 /100WBC 01/22/22 08:40 Sodium 139 mmol/L (136-145) 01/22/22 10:10 Potassium 4.9 mmol/L (3.5-5.1) 01/22/22 10:10 Chloride 104 mmol/L (98-107) 01/22/22 10:10 Carbon Dioxide 23 mmol/L (22-29) 01/22/22 10:10 Anion Gap 16.9 (5-19) 01/22/22 10:10 BUN 30 mg/dL (8-23) H 01/22/22 10:10 Creatinine 1.5 mg/dL (0.7-1.2) H 01/22/22 10:10 GFR Calculation Not Reportable 01/22/22 10:10 Glucose 106 mg/dL (65-115) 01/22/22 10:10 Calculated Osmolality 295 mOsm/kg (285-295) 01/22/22 10:10 Calcium 9.0 mg/dL (8.5-10.5) 01/22/22 10:10 NT-Pro-B Natriuret Pep 1466 pg/mL (0-450) H 01/22/22 10:10 Urine Color Yellow (Yellow) 01/22/22 09:40 Urine Appearance Clear (CLEAR) 01/22/22 09:40 Urine pH 5 (5-7) 01/22/22 09:40 Ur Specific [place] 1.010 (1.005-1.030) 01/22/22 09:40 Urine Protein Neg (Negative) 01/22/22 09:40 Urine Glucose (UA) Norm (Normal) 01/22/22 09:40 Urine Ketones Negative (Negative) 01/22/22 09:40 Urine Blood Neg (Negative) 01/22/22 09:40 Urine Nitrate Negative (Negative) 01/22/22 09:40 Urine Bilirubin Neg (Negative) 01/22/22 09:40 Urine Urobilinogen Norm mg/dL (Negative) 01/22/22 09:40 Ur Leukocyte Esterase Negative (Negative) 01/22/22 09:40 Procedures Performed AICD placement on Saturday, January 22, 2022 Vitals Last Vital Signs Temp 98.2 F 01/23/22 04:00 Pulse 66 01/23/22 05:52 Resp 17 01/23/22 04:00 BP 105/64 01/23/22 04:00 Pulse Ox 94 01/23/22 04:00 Discharge Plan Discharge Patient Disposition: Home Condition: Stable Prescriptions: New hydrocodone-acetaminophen 5-325 mg Tablet 1 tab PO Q6H PRN (Reason: Moderate Pain) Qty: 10 0RF sulfamethoxazole-trimethoprim [Bactrim DS] 800-160 mg tablet 1 tab PO BID Qty: 6 0RF Continued furosemide 40 mg tablet 60 mg PO DIRECTED Qty: 135 3RF Rx Instructions: 40mg in AM and 20mg In afternoon carvedilol 3.125 mg tablet 3.125 mg PO BID Qty: 60 6RF atorvastatin 40 mg tablet 40 mg PO QAM Qty: 90 1RF spironolactone 25 mg tablet 25 mg PO QAM Qty: 90 3RF nitroglycerin [Nitrostat] 0.4 mg tablet, sublingual 0.4 mg sublingual Q5M PRN (Reason: chest pain) Qty: 25 3RF Rx Instructions: do not exceed 3 doses per episode aspirin 81 mg Tablet,Delayed Release (Dr/Ec) 81 mg PO QAM 0RF levothyroxine [Synthroid] 75 mcg Tablet 75 mcg PO QAM 0RF Plavix 75 mg tablet 75 mg PO QAM 0RF Discharge Orders: Discharge Order (Routine); Ordered 01/23/22 Ordered By: Peter Payne Referrals: [facility] [Provider Group] - 1 week (Pacemaker clinic) Discharge Diet: Usual diet Discharge Activity: Limit activity as instructed Patient Instructions: Opioid Safety Activity Restrictions/Additional Instructions: Do not raise left hand above eye level for 1 week May remove surgical bandage in 2 days May begin showers in 2 days with dressing off. Dry incision completely afterwards. [place] incision with Betadine and recover No swimming or tub baths x2 weeks Take antibiotics twice daily for the next 3 days until completed Notify office of any increasing pain, swelling, redness, fever, or drainage from incision. Discharge Attestations Time Spent in Discharge Care*: less than 30 min Specific Discharge Activities: educating patient, discussing with protective services case worker/social workers/dc planners, documenting/other paperwork and evaluating patient/reviewing data Status at Discharge: Functional status at discharge: independent ambulation, Overall status at discharge: patient is back to baseline Quality Metrics Clinical Quality Measures [ No reported AMI, CVA or VTE this stay] Coding Level of Care Code Acute Chg FW DC note
[2022-01-23] MEDS: levothyroxine 75 mcg Tablet PO (06:46)
[2022-01-23] MEDS: atorvastatin 40 mg Tablet PO (06:46)
[2022-01-23] MEDS: spironolactone 25 mg Tablet PO (06:46)
[2022-01-23 07:50] VITALS: PULSE 66
[2022-01-23] MEDS: carvedilol 3.125 mg Tablet PO (08:28)
== END 2022-01-23 09:35 | disposition home or self-care (01) ==
LOC: MEDSURG 12:30
PROVIDERS: Admitting Provider Thoracic Surgery (Cardiothoracic Vascular Surgery); PCP Electrodiagnostic Medicine; Visit Provider Thoracic Surgery (Cardiothoracic Vascular Surgery)
PROC: 0JH608Z Insertion of Defibrillator Generator into Chest Subcutaneous Tissue and Fascia, Open Approach (ICD-10-PCS; CPT 33249; principal; 2022-01-22 09:30)
DX: I25.5 Ischemic cardiomyopathy (principal); I25.2 Old myocardial infarction; I25.10 Atherosclerotic heart disease of native coronary artery without angina pectoris; J44.9 Chronic obstructive pulmonary disease, unspecified; E78.5 Hyperlipidemia, unspecified; E03.9 Hypothyroidism, unspecified; I13.0 Hypertensive heart and chronic kidney disease with heart failure and stage 1 through stage 4 chronic kidney disease, or unspecified chronic kidney disease; N18.9 Chronic kidney disease, unspecified; F17.210 Nicotine dependence, cigarettes, uncomplicated; Z79.82 Long term (current) use of aspirin; I11.0 Hypertensive heart disease with heart failure; I50.22 Chronic systolic (congestive) heart failure
CPT/HCPCS: 33249; 36415; 71045; 76000; 80048; 81003; 83880; 85025; C1721; C1777; G0378; J0690; J2370; J2704; J3010; J7030

== ENCOUNTER → 2022-01-30 10:44 | Outpatient (BNVA) | payer MEDICARE, SELFPAY | PROVIDERS: PCP Electrodiagnostic Medicine; Visit Provider Nurse Practitioner Family | DX: Z95.810 Presence of automatic (implantable) cardiac defibrillator (principal); I49.5 Sick sinus syndrome | CPT/HCPCS: 93005; 93283; 99214 ==

== ENCOUNTER → 2022-02-15 08:24 | Outpatient (BNVA) | payer MEDICARE, SELFPAY | PROVIDERS: PCP Electrodiagnostic Medicine | DX: Z45.02 Encounter for adjustment and management of automatic implantable cardiac defibrillator (principal) | CPT/HCPCS: 93283 ==

== ENCOUNTER → 2022-03-13 12:56 | Outpatient (BNVA) | payer MEDICARE, SELFPAY | PROVIDERS: PCP Electrodiagnostic Medicine; Visit Provider Internal Medicine | DX: I11.9 Hypertensive heart disease without heart failure (principal); I25.10 Atherosclerotic heart disease of native coronary artery without angina pectoris; I35.0 Nonrheumatic aortic (valve) stenosis; Z95.810 Presence of automatic (implantable) cardiac defibrillator; F17.210 Nicotine dependence, cigarettes, uncomplicated | CPT/HCPCS: 99214 ==

== ENCOUNTER 2022-04-08 03:28 | Inpatient (IN) | payer MEDICARE, SELFPAY ==
[2022-04-08] VITALS (70 sets, daily range): BP systolic 87–159; BP diastolic 39–87; PULSE 38–108; RESP 7–38; TEMP 36.3–36.9; O2SAT 92–100; BMI 23.0; BMI 23.9
--- NOTE | 2022-04-08 03:37 | XRR_ITS ---
PROCEDURE INFORMATION: Exam: XR Chest Exam date and time: 04/08/2022 3:41 AM Age: 76 years old Clinical indication: Shortness of breath; Prior surgery; Surgery type: Pacemaker; Additional info: SOB TECHNIQUE: Imaging protocol: Radiologic exam of the chest. Views: 1 view. COMPARISON: CR XR chest 1V portable [id number] 01/22/2022 1:02 PM FINDINGS: Tubes, catheters and devices: Cardiac device noted overlying the left chest. Lungs: The lung parenchyma is clear. Pleural spaces: No pneumothorax. No pleural effusion. Heart/Mediastinum: The cardiomediastinal silhouette is within normal limits. Bones/joints: Unremarkable. XR/XR chest 1V portable [id number] IMPRESSION: No acute cardiopulmonary abnormality identified.
--- NOTE | 2022-04-08 03:38 | ED_ITS ---
HPI - SOB/Dyspnea General: Chief Complaint: Shortness of Breath/Dyspnea Stated Complaint: sob Time Seen by Provider: 04/08/22 03:29 Source: patient Mode of arrival: ambulatory Limitations: no limitations History of Present Illness: HPI Narrative: 76-year-old male has a history of COPD along with congestive heart failure states over the last 2 days he has had a cough with increasing shortness of breath he states he feels like he is going in the flash pulmonary edema his blood pressure here is normal he does have wheezing denies any fever states is worse with exertion denies any pain Associated symptoms: Deny abdominal pain, chest pain, fever(s), nausea or vomiting Review of Systems Const: Denies: fever(s), chills, body aches or change in appetite Eyes: Denies: blurry vision or eye discomfort ENMT: Denies: throat pain or dental pain Card: Denies: chest pain Resp: Reports: dyspnea, non-productive cough and wheezing GI: Denies: abdominal pain, nausea, vomiting or diarrhea : Denies: dysuria Musc: Denies: neck pain or back pain Skin/Breast: Denies: rash Neuro: Denies: headache(s) Psych: Denies: depression Tip/Lymph: Denies: easy bruising All/Imm: Denies: urticaria PFSH ED PFSH: Medical History Aortic stenosis Echo 10/01 with mild aortic stenosis, [place] 1.6 cm2, mean gradient 11.6 mmHg, peak velocity 2.4 m/sec CAD (coronary artery disease) Angiogram August 2019 demonstrated EF around 35%, LAD chronic occlusion, first obtuse marginal 60% stenosis, RCA ulcerated 90% stenosis which was stented Chronic kidney disease COPD (chronic obstructive pulmonary disease) Erectile dysfunction HLD (hyperlipidemia) HTN (hypertension) Hypothyroidism Ischemic cardiomyopathy Squamous cell carcinoma skin of arm Tobacco abuse Surgical History AICD (automatic cardioverter/defibrillator) present Pacemaker Medtronic S/P PTCA (percutaneous transluminal coronary angioplasty) August 2019 Family History Brother CAD (coronary artery disease) Social History Smoking and tobacco status: current every day smoker cigarettes Packs smoked per day: 1 Years cigarettes smoked: 50 Alcohol intake: current Alcohol intake frequency: few times a month Physical Exam Const: COMMON NORMALS: patient oriented x3 GENERAL APPEARANCE: in distress and ill appearing HENMT: COMMON NORMALS: normocephalic and atraumatic HEAD & SCALP: normocephalic and atraumatic Eye: COMMON NORMALS: Equal, round and reactive pupils present and EOMs intact bilaterally PUPIL: Yes Equal, round and reactive pupils present Neck/C-Spine: COMMON NORMALS: full ROM and supple Chest: COMMONS NORMALS: normal inspection of the chest and normal palpation of entire chest wall Resp: COMMON NORMALS: No retractions and No use of accessory muscles EFFORT & INSPECTION: Yes tachypneic and Yes respiratory distress AUSCULTATION: rales Cardio: COMMON NORMALS: regular rate, regular rhythm and No murmurs present (Cardio) RATE: regular rate RHYTHM: regular rhythm GI: COMMON NORMALS: Normal to inspection, nondistended, normoactive bowel sounds present, Soft to palpation, non-tender and no masses PALPATION: Yes Soft to palpation Extremity: COMMON NORMALS: normal to inspection and full ROM Neuro: COMMON NORMALS: patient oriented x3, moves all extremities and no focal motor deficits Psych: COMMON NORMALS: mental status grossly normal, Normal thought process present and cooperative THOUGHT PROCESS: Normal thought process present Skin: COMMON NORMALS: no rashes or lesions noted and no wounds GENERAL SKIN EXAM: no rashes or lesions noted Course Vital Signs: Vital signs: Vital Signs Temperature 98 F 04/08/22 17:30 Pulse Rate 81 04/08/22 17:30 Respiratory Rate 25 H 04/08/22 17:30 Blood Pressure 116/58 04/08/22 17:30 Pulse Oximetry 100 04/08/22 17:30 Oxygen Delivery Me thod 04/08/22 17:30 Oxygen Flow Rate 3 04/08/22 12:15 Fraction of Inspir ed Oxygen 35 04/08/22 07:51 MDM - SOB/Dyspnea Medical Decision Making Patient presents here with cough shortness of breath history of congestive heart failure appears to appointment to pulmonary edema here patient placed on BiPAP I spoke to the hospitalist will admit to the ICU at this time. Lab Data : 04/08/22 03:39 04/08/22 03:39 Labs/Radiology: Radiology Impressions Chest X-Ray 04/08/22 03:37 IMPRESSION: No acute cardiopulmonary abnormality identified. Laboratory Results WBC 9.7 10^3/uL (4.0-10.0) 04/08/22 03:39 RBC 3.60 10^6/uL (4.1-5.3) L 04/08/22 03:39 Hgb 11.2 g/dL (11.7-16.6) L 04/08/22 03:39 Hct 34.4 % (42.0-52.0) L 04/08/22 03:39 MCV 95.6 fl (80-94) H 04/08/22 03:39 MCH 31.1 pg (28.0-34.0) 04/08/22 03:39 MCHC 32.6 g/dL (30.0-36.0) 04/08/22 03:39 RDW 13.8 % (12.1-15.1) 04/08/22 03:39 Plt Count 215 10^3/cmm (130-400) 04/08/22 03:39 MPV 11.5 fL (7.4-10.4) H 04/08/22 03:39 Neut % (Auto) 58.3 % 04/08/22 03:39 Lymph % (Auto) 21.6 % 04/08/22 03:39 [place] % (Auto) 7.6 % 04/08/22 03:39 Eos % (Auto) 11.7 % 04/08/22 03:39 Baso % (Auto) 0.7 % 04/08/22 03:39 Neut # (Auto) 5.63 10^3/uL (1.8-7.7) 04/08/22 03:39 Lymph # (Auto) 2.1 10^3/uL (0.8-4.8) 04/08/22 03:39 [place] # (Auto) 0.7 10^3/uL (0.2-0.9) 04/08/22 03:39 Eos # (Auto) 1.1 10^3/uL (0.0-0.8) H 04/08/22 03:39 Baso # (Auto) 0.1 10^3/uL (0.0-0.1) 04/08/22 03:39 Nucleated RBC % (auto) 0 % 04/08/22 03:39 Nucleated RBCs # 0.0 /100WBC 04/08/22 03:39 PT 13.80 SECONDS (12.1-14.9) 04/08/22 03:39 INR 1.03 (0.8-1.2) 04/08/22 03:39 D-Dimer 1.61 ug/mIFEU (0-0.59) H 04/08/22 03:39 Specimen Type Arterial 04/08/22 03:42 Sample Site Radial, right 04/08/22 03:42 ABG pH 7.39 (7.35-7.45) 04/08/22 03:42 ABG pCO2 33.2 mmHg (35-45) L 04/08/22 03:42 ABG pO2 66.9 mmHg (80.0-100.0) L 04/08/22 03:42 ABG HCO3 20.3 mmol/L (22-26) L 04/08/22 03:42 ABG Base Excess -3.9 mmol/L (-2.0-2.0) L 04/08/22 03:42 Jae Test Pos 04/08/22 03:42 Hematocrit 34.9 % (42-52) L 04/08/22 03:42 O2 Delivery Device Room air 04/08/22 03:42 Ground Instructor Basic ID [email or web address] 04/08/22 03:42 Sodium 136 mmol/L (136-145) 04/08/22 03:39 Potassium 4.1 mmol/L (3.5-5.1) 04/08/22 03:39 Chloride 104 mmol/L (98-107) 04/08/22 03:39 Carbon Dioxide 19 mmol/L (22-29) L 04/08/22 03:39 Anion Gap 17.1 (5-19) 04/08/22 03:39 BUN 31 mg/dL (8-23) H 04/08/22 03:39 Creatinine 1.6 mg/dL (0.7-1.2) H 04/08/22 03:39 GFR Calculation Not Reportable 04/08/22 03:39 Glucose 125 mg/dL (65-115) H 04/08/22 03:39 Calculated Osmolality 290 mOsm/kg (285-295) 04/08/22 03:39 Calcium 9.2 mg/dL (8.5-10.5) 04/08/22 03:39 Total Bilirubin 0.3 mg/dL (0.15-1.2) 04/08/22 03:39 AST 15 U/L (0-40) 04/08/22 03:39 ALT 10 U/L (0-41) 04/08/22 03:39 Alkaline Phosphatase 85 U/L (40-130) 04/08/22 03:39 Troponin T Baseline 51 ng/L (0-15) H 04/08/22 03:39 C-Reactive Protein 3.0 mg/L (0.0-4.9) 04/08/22 03:39 NT-Pro-B Natriuret Pep 3694 pg/mL (0-450) H 04/08/22 03:39 Total Protein 7.2 g/dL (6.6-8.7) 04/08/22 03:39 Albumin 4.3 g/dL (3.5-5.2) 04/08/22 03:39 Globulin 2.9 g/dL (1.3-4.6) 04/08/22 03:39 Procalcitonin 0.05 ng/mL (0-0.5) 04/08/22 03:39 SARS-CoV-2 Ag (Rapid) Negative (Negative) 04/08/22 03:59 EKG Data EKG 1: I personally reviewed and interpreted this EKG as follows: EKG Interpretation Date: 04/08/22 EKG interpretation time: 03:40 Interpretation: paced hr [address] or t wave abnormalities qrs 170 qtc 445 Critical Care Time Critical Care Time: Critical Care Time: Yes Total Critical Care Time: 40 Attestation: The high probability of a clinically significant, sudden or life threatening deterioration of the patient's resp system(s) required my full and direct attention, intervention and personal management. The critical care time is as shown. This time is in addition to time spent performing any reported procedures but includes the following: [x] Data and vital sign review and interpretation [x] Patient assessment, examination and intervention [x] Documentation [x] Medication orders and management Discharge Plan Discharge Patient Disposition: Admitted As Inpatient Admit Provider: Jose Mack Clinical Impression: Congestive heart failure, Acute respiratory failure with hypoxia Condition: Stable Coding Level of Care Code ED E Commerce Merchant for Sherig Fwd Exam Comprehensive
--- NOTE | 2022-04-08 03:40 | ECG_ITS ---
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 Measurements Intervals [place] Rate: 95 P: 70 NM: 200 QRS: -82 QRSD: 170 T: 97 QT: 392 QTc: 494 Interpretive Statements ELECTRONIC VENTRICULAR PACEMAKER ABNORMAL RHYTHM ECG Compared to ECG 04/10/2021 05:11:55 Atrial-paced complex(es) or rhythm no longer present Electronically Signed On 04-09-2022 0:06:59 CDT by Laura Collado M.D. [id number] f
[2022-04-08 03:46] LABS: Basophils # 0.1 10^3/uL (0.0-0.1); Basophils % 0.7 %; Eosinophils # 1.1 10^3/uL (0.0-0.8); Eosinophils % 11.7 %; Hematocrit 34.4 % (42.0-52.0); Hemoglobin 11.2 g/dL (11.7-16.6); Lymphocytes # 2.1 10^3/uL (0.8-4.8); Lymphocytes % 21.6 %; Mean Corpuscular HGB Conc 32.6 g/dL (30.0-36.0); Mean Corpuscular Hemoglobin 31.1 pg (28.0-34.0); Mean Corpuscular Volume 95.6 fl (80-94); Mean Platelet Volume 11.5 fL (7.4-10.4); Monocytes # 0.7 10^3/uL (0.2-0.9); Monocytes % 7.6 %; Neutrophils # 5.63 10^3/uL (1.8-7.7); Neutrophils % 58.3 %; Nucleated Red Blood Cells % 0 %; Platelet Count 215 10^3/cmm (130-400); Red Cell Distribution Width 13.8 % (12.1-15.1); White Blood Count 9.7 10^3/uL (4.0-10.0)
[2022-04-08] MEDS: ipratropium 0.5 mg/2.5 mL Neb INHALATION (03:48)
[2022-04-08 03:54] LABS: ABG PCO2 33.2 mmHg (35-45); ABG PH Result 7.39 (7.35-7.45); Arterial Blood Gas Hematocrit 34.9 % (42-52); Base Excess ABG -3.9 mmol/L (-2.0-2.0); Blood Gas Allen Test Pos; Blood Gas Sample Site Radial, right; Blood Gas Sample Type Arterial; HCO3 ABG 20.3 mmol/L (22-26); Oxygen Device ROOM AIR; PO2 ABG 66.9 mmHg (80.0-100.0)
[2022-04-08 03:57] LABS: INR 1.03 (0.8-1.2)
--- NOTE | 2022-04-08 04:03 | PC.NURSE ---
attempted to admin PO ativan, patient unable to take due to severe sob and pain, dr spivey and primary nurse notified awaiting new orders.
[2022-04-08 04:12] LABS: Troponin(5th) Baseline 51 ng/L (0-15)
[2022-04-08] MEDS: midazolam 1 mg/mL INJ 2 mL 2 MG IVP (04:14)
[2022-04-08 04:17] LABS: Alanine Aminotransferase 10 U/L (0-41); Albumin Level 4.3 g/dL (3.5-5.2); Alkaline Phosphatase 85 U/L (40-130); Anion Gap 17.1 (5-19); Aspartate Amino Transferase 15 U/L (0-40); Blood Urea Nitrogen 31 mg/dL (8-23); Calcium 9.2 mg/dL (8.5-10.5); Carbon Dioxide 19 mmol/L (22-29); Chloride 104 mmol/L (98-107); Globulin 2.9 g/dL (1.3-4.6); Glucose 125 mg/dL (65-115); NT Pro B Type Natriuretic Pept 3694 pg/mL (0-450); Osmolality Calculated 290 mOsm/kg (285-295); Potassium 4.1 mmol/L (3.5-5.1); Sodium 136 mmol/L (136-145); Total Bilirubin 0.3 mg/dL (0.15-1.2); Total Protein 7.2 g/dL (6.6-8.7)
[2022-04-08 04:22] LABS: SARS Covid-2 Antigen Negative (Negative)
[2022-04-08] MEDS: FUROsemide 10 mg/mL SDV 4mL 40 MG IVP ×2 (04:28→07:52)
--- NOTE | 2022-04-08 05:11 | P.HP_ITS ---
Providers/Chief Complaint Admitting Physician: Jose Mack MD Primary Care Provider: Gregorio Cunningham DO Chief Complaint: sob History of Present Illness Juarez Delgado is a 76 year old male COPD, smoker, CAD, CHF, history of ICD placement, hyperlipidemia, hypothyroidism, last EF 20 to 25%, ischemic cardiomyopathy who presents [facility] for shortness of breath. Cu rrently patient is on BiPAP, 35%, alert oriented x3, following commands, no evidence of respiratory distress, sitting up, he is claustrophobic so is received Versed by the ER, he is currently tolerating BiPAP well. He tells me that his shortness of breath is improved, no chest pain, has cough, no fevers. His tells me for the last week he has had progressively worsening shortness of breath and nonproductive cough, no sick contacts, recent travel, no history of COVID-19. Review of Systems Card: Denies: chest pain Resp: Reports: dyspnea GI: Denies: abdominal pain Medications/Allergies Home Medications Medication Instructions Recorded Confirmed Last Taken Type aspirin 81 mg tablet,delayed 81 mg PO QAM 08/25/19 03/13/22 01/21/22 History release levothyroxine 75 mcg tablet 75 mcg PO QAM 08/25/19 03/13/22 01/22/22 06:00 History (Synthroid) furosemide 40 mg tablet 60 mg PO DIRECTED #135 tabs 05/14/21 03/13/22 01/21/22 Rx atorvastatin 40 mg tablet 40 mg PO QAM #90 tabs 11/01/21 03/13/22 01/21/22 Rx spironolactone 25 mg tablet 25 mg PO QAM #90 tabs 12/03/21 03/13/22 01/21/22 Rx nitroglycerin 0.4 mg sublingual 0.4 mg sublingual Q5M PRN chest 12/12/21 0 03/13/22 01/11/22 Rx tablet (Nitrostat) pain #25 tabs hydrocodone 5 mg-acetaminophen 325 1 tab PO Q6H PRN Moderate Pain #10 01/23/22 03/13/22 Unknown Rx mg tablet tabs carvedilol 3.125 mg tablet 3.125 mg PO BID #90 tabs 02/06/22 03/13/22 Unknown Rx clopidogrel 75 mg tablet (Plavix) 75 mg PO QAM #90 tabs 02/11/22 03/13/22 Unknown Rx Allergies Allergy/AdvReac Type Severity Reaction Status Date / Time No Known Allergies Allergy Verified 03/13/22 13:08 PFSH Acute PFSH: Medical History Aortic stenosis Echo 10/01 with mild aortic stenosis, [place] 1.6 cm2, mean gradient 11.6 mmHg, peak velocity 2.4 m/sec CAD (coronary artery disease) Angiogram August 2019 demonstrated EF around 35%, LAD chronic occlusion, first obtuse marginal 60% stenosis, RCA ulcerated 90% stenosis which was stented Chronic kidney disease COPD (chronic obstructive pulmonary disease) Erectile dysfunction HLD (hyperlipidemia) HTN (hypertension) Hypothyroidism Ischemic cardiomyopathy Squamous cell carcinoma skin of arm Tobacco abuse Surgical History AICD (automatic cardioverter/defibrillator) present Pacemaker Medtronic S/P PTCA (percutaneous transluminal coronary angioplasty) August 2019 Family History Brother CAD (coronary artery disease) Social History Smoking and tobacco status: current every day smoker cigarettes Packs smoked per day: 1 Years cigarettes smoked: 50 Alcohol intake: current Alcohol intake frequency: few times a month Vitals/I&O/Wt Last Vital Signs Temp 98.4 F 04/08/22 03:30 Pulse 73 04/08/22 04:51 Resp 24 H 04/08/22 04:51 BP 119/51 04/08/22 04:51 Pulse Ox 99 04/08/22 04:51 O2 Del Method 04/08/22 04:51 O2 Flow Rate 4 04/08/22 04:02 FiO2 35 04/08/22 04:51 Weight last 48 hrs Weight 77.111 kg Physical Exam Const: COMMON NORMALS: no acute distress and patient oriented x3 HENMT: COMMON NORMALS: normocephalic HEAD & SCALP: normocephalic Eye: COMMON NORMALS: Equal, round and reactive pupils present Neck/C-Spine: COMMON NORMALS: no JVD Resp: COMMON NORMALS: normal respiratory effort, No retractions and No use of accessory muscles AUSCULTATION: wheezes Cardio: COMMON NORMALS: no JVD, regular rate, regular rhythm, S1 normal heart sound present and S2 normal heart sound present RATE: regular rate RHYTHM: regular rhythm HEART SOUNDS: S1 normal heart sound present and S2 normal heart sound present GI: COMMON NORMALS: Normal to inspection, nondistended, normoactive bowel so unds present, Soft to palpation and non-tender PALPATION: Yes Soft to pal pation and Yes No hepatosplenomegaly present Extremity: NARRATIVE EXTREMITY EXAM: 1+ pitting edema bilateral extremity Neuro: COMMON NORMALS: patient oriented x3, CN's II-XII intact bilaterally and moves all extremities Psych: COMMON NORMALS: mental status grossly normal Data : 04/08/22 03:39 04/08/22 03:39 A&P Assessment and plan (1) Acute respiratory failure with hypoxia: (2) Congestive heart failure: (3) Hypothyroidism: Qualifiers: Hypothyroidism type: unspecified Qualified Code(s): E03.9 - Hypothyroidism, unspecified (4) Non-ST elevation MA (NSTEMI): (5) Chronic kidney disease: Qualifiers: Chronic kidney disease stage: stage 2 (mild) Qualified Code(s): N18.2 - Chronic kidney disease, stage 2 (mild) (6) Pacemaker: (7) Aortic stenosis: Qualifiers: Cardiac valve disease etiology: nonrheumatic Qualified Code(s): I35.0 - Nonrheumatic aortic (valve) stenosis (8) CAD (coronary artery disease): Qualifiers: Coronary Disease-Associated Artery/Lesion type: [place] artery [place] vs. transplanted heart: [place] heart Associated angina: angina presence unspecified Qualified Code(s): I25.10 - Atherosclerotic heart disease of [place] coronary artery without angina pectoris (9) HTN (hypertension): Qualifiers: Hypertension type: essential hypertension Qualified Code(s): I10 - Essential (primary) hypertension (10) HLD (hyperlipidemia): Qualifiers: Hyperlipidemia type: unspecified Qualified Code(s): E78.5 - Hyperli pidemia, unspecified (11) Ischemic cardiomyopathy: (12) COPD exacerbation: Plan Acute hypoxic respiratory failure -Secondary to COPD exacerbation -Secondary to fluid overload, ischemic cardiomyopathy Plan -Admit to ICU -Continue BiPAP therapy -Precedex drip for anxiety, claustrophobia -Continue Solu-Medrol -DuoNeb, budesonide -Chest x-ray no evidence of focal pneumonia, hold off on antibiotic therapy -Lasix 40 IV twice daily, creatinine 1.6, monitor urine output monitor potassium, monitor magnesium -Continue aspirin, Plavix, statin -Order D-dimer, venous ultrasound for DVT, cannot order CT angiogram given creatinine -Full code -Lovenox for DVT prophylaxis Attestations Medical Necessity Statement*: Patient requires hospitalization, inpatient, greater than 2 midnights for acute hypoxic respiratory failure Coding Level of Care Code Acute Gas Specialist for [facility] Fwd Diagnoses Acute respiratory failure with hypoxia J96.01 Congestive heart failure I50.9 Hypothyroidism E03.9 Hypothyroidism type: unspecified Non-ST elevation MA (NSTEMI) I21.4 Chronic kidney disease N18.2 Chronic kidney disease stage: stage 2 (mild) Pacemaker Z95.0 Aortic stenosis I35.0 Cardiac valve disease etiology: nonrheumatic CAD (coronary artery disease) I25.10 Coronary Disease-Associated Artery/Lesion type: [place] artery [place] vs. transplanted heart: [place] heart Associated angina: angina presence unspecified HTN (hypertension) I10 Hypertension type: essential hypertension HLD (hyperlipidemia) E78.5 Hyperlipidemia type: unspecified Ischemic cardiomyopathy I25.5 COPD exacerbation J44.1
--- NOTE | 2022-04-08 05:21 | USCV_ITS ---
DannyJuarez Age: 76 Gender: M : 1945 Exam Date: 04/08/2022 08:50 Ordering Phys: Jose Mack MD Technologist: Jayme Werner Exam Location: [facility] [place]_ Indication: bed stasis PROCEDURES: The venous duplex Doppler examination of both lower extremities was performed in the standard fashion. The following venous structures were evaluated: common femoral vein, profunda vein, proximal portion of the greater saphenous vein, superficial femoral vein, and the popliteal vein. FINDINGS: Normal 2-D Doppler and augmentation and compressibility throughout the lower extremity venous structures. Additional imaging through the proximal calf veins also reveals no thrombus. Limited evaluation of the greater saphenous vein is patent with no thrombus.. CONCLUSIONS No DVT bilateral lower extremities. Dr. Jimena Syed DO (Electronically Signed) Final Date: 08 April 2022 09:24 S
--- NOTE | 2022-04-08 05:24 | ECG_ITS ---
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 Measurements Intervals [place] Rate: 73 P: 144 MT: 221 QRS: -70 QRSD: 190 T: 104 QT: 446 QTc: 492 Interpretive Statements ELECTRONIC ATRIAL PACEMAKER ELECTRONIC VENTRICULAR PACEMAKER ABNORMAL RHYTHM ECG Compared to ECG 04/10/2021 05:11:55 No significant changes Electronically Signed On 04-09-2022 0:20:44 CDT by Laura Colldao M.D. [id number]
[2022-04-08 05:35] LABS: D Dimer 1.61 ug/mIFEU (0-0.59)
[2022-04-08 05:47] LABS: Procalcitonin 0.05 ng/mL (0-0.5)
[2022-04-08] MEDS: pantoprazole 40 mg SDV IVP (06:21)
[2022-04-08] MEDS: enoxaparin 40 mg/0.4 mL Syringe SUBCUT (06:21)
[2022-04-08 06:28] LABS: Troponin 5 2HR 51.13 ng/L (0-15)
--- NOTE | 2022-04-08 06:29 | PC.NURSE ---
Pt refused 0600 meds. Pt stated that they took their home meds early this morning before driving to the ER.
[2022-04-08 06:30] LABS: Troponin 5 2HR Delta 0.13 ABS# (0-10)
[2022-04-08] MEDS: ipratropium-albuterol 3 mL Neb INHALATION ×5 (07:47→23:44)
[2022-04-08] MEDS: budesonide 0.5 mg/2 mL Neb INHALATION ×2 (07:47→19:58)
--- NOTE | 2022-04-08 09:43 | ECG_ITS ---
[facility] Test Date: 2022-04-08 Pat Name: Juarez Delgado Department: Room: 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 Measurements Intervals [place] Rate: 68 P: 136 [place]: 214 QRS: -63 QRSD: 190 T: 110 QT: 466 QTc: 497 Interpretive Statements ELECTRONIC ATRIAL PACEMAKER ELECTRONIC VENTRICULAR PACEMAKER ABNORMAL RHYTHM ECG Compared to ECG 04/08/2022 05:24:00 No significant changes Electronically Signed On 04-09-2022 0:23:12 CDT by Laura Collado M.D. [id number]
[2022-04-08 10:14] LABS: Troponin 5 6HR 66.77 ng/L (0-15)
[2022-04-08 10:40] LABS: Troponin 5 6HR Delta 15.77 ng/L (0-12)
[2022-04-08] MEDS: guaiFENesin 600 mg Tablet 1200 MG PO (17:08)
[2022-04-08] MEDS: carvedilol 3.125 mg Tablet PO (17:08)
--- NOTE | 2022-04-08 18:15 | PC.NURSE ---
TRansferred patient to [facility] surge room 259 bed 1. report given to nurse Hurtado.
--- NOTE | 2022-04-08 20:34 | PM.PN ---
Subjective Subjective: Reports he feels better, breathing better. Not normally on oxygen. Denies chest pain or pressure. Coughing. Having hard time bringing up phlegm. Vitals/I&O/Wt Last Vital Signs Temp 97.7 F 04/08/22 20:00 Pulse 62 04/08/22 20:05 Resp 16 04/08/22 20:01 BP 113/51 04/08/22 20:00 Pulse Ox 95 04/08/22 20:01 O2 Del Method 04/08/22 20:01 O2 Flow Rate 3 04/08/22 12:15 FiO2 35 04/08/22 07:51 04/08/22 04/08/22 04/08/22 06:59 14:59 22:59 Intake Total 640 / 640 1040 / 1680 Output Total 825 / 825 Balance -185 / -185 1040 / 855 Weight last 48 hrs Weight 79.968 kg Weight 77.111 kg Physical Exam Const: COMMON NORMALS: patient oriented x3 and alert GENERAL APPEARANCE: cooperative ORIENTATION/CONSCIOUSNESS: Yes awake HENMT: COMMON NORMALS: oropharynx normal Neck/C-Spine: COMMON NORMALS: no JVD Resp: COMMON NORMALS: normal respiratory effort AUSCULTATION: rhonchi, wheezes and diminished lung sounds Cardio: COMMON NORMALS: no JVD, regular rhythm, S1 normal heart sound present, S2 normal heart sound present and No murmurs present (Cardio) RHYTHM: regular rhythm HEART SOUNDS: S1 normal heart sound present and S2 normal heart sound present GI: COMMON NORMALS: Normal to inspection, nondistended, normoactive bowel sounds present, Soft to palpation and non-tender PALPATION: Yes Soft to palpation Extremity: COMMON NORMALS: no joint enlargement and no pedal edema Neuro: COMMON NORMALS: patient oriented x3 and moves all extremities SENSORIUM/ORIENTATION: Yes alert Skin: COMMON NORMALS: no rashes or lesions noted GENERAL SKIN EXAM: no rashes or lesions noted Data : 04/08/22 03:39 04/08/22 03:39 A&P Assessment and plan (1) Acute respiratory failure with hypoxia: With wheezing, rhonchi, diminished air entry. Cough. COPD exacerbation. Continue to wean off oxygen support as tolerating. Continue IV steroid, add empiric antibiotic. He is gradually improving. Additionally acute congestive heart failure, he received Lasix IV. Currently appears to have compensated. We will transition back to home dose Lasix. (2) Congestive heart failure: (3) Hypothyroidism: Qualifiers: Hypothyroidism type: unspecified Qualified Code(s): E03.9 - Hypothyroidism, unspecified (4) Non-ST elevation [place] (NSTEMI): Noted troponin abnormality, up to 66.77. Chest pain-free. Repeat troponin in the morning. Recent echocardiogram with EF 20-25%. Severe global hypokinesis. Noted chronic troponin elevation. Also in the setting of CKD. (5) Chronic kidney disease: Currently appears at baseline Qualifiers: Chronic kidney disease stage: stage 2 (mild) Qualified Code(s): N18.2 - Chronic kidney disease, stage 2 (mild) (6) Pacemaker: (7) Aortic stenosis: Qualifiers: Cardiac valve disease etiology: nonrheumatic Qualified Code(s): I35.0 - Nonrheumatic aortic (valve) stenosis (8) CAD (coronary artery disease): Qualifiers: Coronary Disease-Associated Artery/Lesion type: [place] artery [place] vs. transplanted heart: [place] heart Associated angina: angina presence unspecified Qualified Code(s): I25.10 - Atherosclerotic heart disease of [place] coronary artery without angina pectoris (9) HTN (hypertension): Qualifiers: Hypertension type: essential hypertension Qualified Code(s): I10 - Essential (primary) hypertension (10) HLD (hyperlipidemia): Qualifiers: Hyperlipidemia type: unspecified Qualified Code(s): E78.5 - Hyperlipidemia, unspecified (11) Ischemic cardiomyopathy: (12) COPD exacerbation: Attestations Medical Necessity Statement*: Continue admission for assessment of COPD exacerbation, CHF exacerbation, improving hypoxic respiratory failure in a gentleman with underlying cardiomyopathy with EF 20-25%. Coding Level of Care Code Acute Manager Food for [facility] Fwd Diagnoses Acute respiratory failure with hypoxia J96.01 Congestive heart failure I50.9 Hypothyroidism E03.9 Hypothyroidism type: unspecified Non-ST elevation [place] (NSTEMI) I21.4 Chronic kidney disease N18.2 Chronic kidney disease stage: stage 2 (mild) Pacemaker Z95.0 Aortic stenosis I35.0 Cardiac valve disease etiology: nonrheumatic CAD (coronary artery disease) I25.10 Coronary Disease-Associated Artery/Lesion type: [place] artery [place] vs. transplanted heart: [place] heart Associated angina: angina presence unspecified HTN (hypertension) I10 Hypertension type: essential hypertension HLD (hyperlipidemia) E78.5 Hyperlipidemia type: unspecified Ischemic cardiomyopathy I25.5 COPD exacerbation J44.1
[2022-04-08] MEDS: cefTRIAXone 1,000 MG in sodium chloride 0.9% (plus) 50 ML 100 MG IV (21:44)
[2022-04-09] VITALS (73 sets, daily range): BP systolic 76–157; BP diastolic 31–98; PULSE 59–130; RESP 16–38; TEMP 36.7–36.9; O2SAT 94–100
[2022-04-09] MEDS: ipratropium-albuterol 3 mL Neb INHALATION ×5 (04:22→19:58)
[2022-04-09] MEDS: enoxaparin 40 mg/0.4 mL Syringe SUBCUT (05:05)
[2022-04-09] MEDS: spironolactone 25 mg Tablet PO (05:05)
[2022-04-09] MEDS: levothyroxine 75 mcg Tablet PO (05:05)
[2022-04-09] MEDS: pantoprazole 40 mg SDV IVP (05:05)
[2022-04-09] MEDS: aspirin 81 mg EC Tablet PO (05:05)
[2022-04-09] MEDS: clopidogrel 75 mg Tablet PO (05:05)
[2022-04-09] MEDS: atorvastatin 40 mg Tablet PO (05:05)
[2022-04-09 05:17] LABS: Basophils % 0.1 %; Hemoglobin 9.7 g/dL (11.7-16.6); Lymphocytes # 0.9 10^3/uL (0.8-4.8); Lymphocytes % 6.7 %; Mean Corpuscular HGB Conc 33.4 g/dL (30.0-36.0); Mean Corpuscular Volume 92.7 fl (80-94); Monocytes # 0.4 10^3/uL (0.2-0.9); Monocytes % 2.9 %; Neutrophils # 11.58 10^3/uL (1.8-7.7); Neutrophils % 89.8 %; Nucleated Red Blood Cells % 0 %; Platelet Count 184 10^3/cmm (130-400); Red Blood Count 3.13 10^6/uL (4.1-5.3); Red Cell Distribution Width 13.7 % (12.1-15.1); White Blood Count 12.9 10^3/uL (4.0-10.0)
[2022-04-09 05:40] LABS: Troponin T (5th) Once 53 ng/L (0-15)
[2022-04-09 05:52] LABS: Anion Gap 19.8 (5-19); Blood Urea Nitrogen 40 mg/dL (8-23); Calcium 8.7 mg/dL (8.5-10.5); Carbon Dioxide 19 mmol/L (22-29); Chloride 97 mmol/L (98-107); Glucose 138 mg/dL (65-115); Magnesium 2.1 mg/dL (1.7-2.3); NT Pro B Type Natriuretic Pept 6128 pg/mL (0-450); Osmolality Calculated 286 mOsm/kg (285-295); Potassium 3.8 mmol/L (3.5-5.1); Sodium 132 mmol/L (136-145)
[2022-04-09] MEDS: budesonide 0.5 mg/2 mL Neb INHALATION ×2 (07:42→19:58)
--- NOTE | 2022-04-09 08:24 | USCV_ITS ---
DannyJuarez Age: 76 Gender: M : 1945 Exam Date: 04/09/2022 09:10 Ordering Phys: Fareed Garcia MD Technologist: MÓNICA Exam Location: [facility] [place] Indication: EF RWMA BP: 120 / 72 HR: 90 Rhythm: Sinus Technical Quality: Suboptimal MEASUREMENTS (Male / Female) Normal Values 2D ECHO LV Diastolic Diameter PLAX 4.8 cm 4.2 - 5.9 / 3.9 - 5.3 cm LV Systolic Diameter PLAX 4.4 cm IVS Diastolic Thickness 0.8 cm 0.6 - 1.0 / 0.6 - 0.9 cm IVS Systolic Thickness 1.3 cm LVPW Diastolic Thickness 1.1 cm 0.6 - 1.0 / 0.6 - 0.9 cm LVPW Systolic Thickness 1.3 cm LVOT Diameter 2.0 cm LV Ejection Fraction 2D Teich 21.2 % LA Diameter 3.4 cm Aorta at Sinotubular Diameter 2.1 cm FINDINGS Left Ventricle Right Ventricle Right Atrium Left Atrium Mitral Valve Aortic Valve Tricuspid Valve Pulmonic Valve Pericardium Aorta IVC CONCLUSIONS Elevated echocardiogram performed to assess LV systolic function. LV systolic function is severely reduced with EF of 20 to 25%. Regional wall motion abnormalities cannot be accurately assessed because of poor ultrasonic windows. Compared to prior echocardiogram from 12/31/2021, no significant changes seen. Jhonathan Jara MD (Electronically Signed) Final Date: 09 April 2022 18:06 S
[2022-04-09] MEDS: carvedilol 3.125 mg Tablet PO ×2 (08:48→16:53)
[2022-04-09] MEDS: guaiFENesin 600 mg Tablet 1200 MG PO ×2 (08:48→16:53)
[2022-04-09] MEDS: FUROsemide 40 mg Tablet PO (08:48)
--- NOTE | 2022-04-09 09:17 | XR_ITS ---
WS: [id number] Exam: XR chest 1V portable [id number] Date/Time of Exam: 04/09/2022 9:17 AM Reason For Exam: chest pain Comparison 04/08/2022. There is diffuse groundglass infiltrate in the mid left lung zone suggesting active pneumonia. Pulmon omer vascularity is increased. Heart size is within normal limits for technique. The lungs are hyperin flated. A permanent cardiac pacer superimposes the left chest. Trace right basal pleural effusion. No pneumothorax. The mediastinum is normal in contour. Monitoring leads superimpose the chest. XR/XR chest 1V portable [id number] IMPRESSION: 1. New diffuse groundglass infiltrate in the mid left lung zone suggesting pneu monia. This could be Covid pneumonia. 2. Pulmonary hyperinflation suggesting COPD. 3. Trace right basal pleural effusion.
[2022-04-09] MEDS: ALPRAZolam 0.5 mg Tablet 0.25 MG PO (09:35)
[2022-04-09] MEDS: FUROsemide 10 mg/mL SDV 2mL 20 MG IVP (09:37)
--- NOTE | 2022-04-09 09:40 | ECG_ITS ---
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 Measurements Intervals [place] Rate: 126 P: 214 PA: 130 QRS: -63 QRSD: 167 T: 131 QT: 379 QTc: 550 Interpretive Statements ELECTRONIC VENTRICULAR PACEMAKER ABNORMAL RHYTHM ECG Compared to ECG 04/08/2022 09:43:42 Atrial-paced complex(es) or rhythm no longer present Electronically Signed On 04-09-2022 12:18:03 CDT by Windy Larson M.D. [id number]
[2022-04-09 10:07] LABS: Troponin(5th) Baseline 64 ng/L (0-15)
[2022-04-09] MEDS: levofloxacin-dextrose 5 % 750 MG/150 ML PREMIX 100 MG IV (10:19)
[2022-04-09] MEDS: midazolam 1 mg/mL INJ 2 mL IVP (10:19)
[2022-04-09 10:39] LABS: Glucose Point of Care 345 mg/dL (70-110)
[2022-04-09 11:16] LABS: ABG PCO2 46.2 mmHg (35-45); ABG PH Result 7.19 (7.35-7.45); Alveolar-Arterial Oxygen Gradi 46.8 mmHg (5-10); Arterial Blood Gas Hematocrit 36.2 % (42-52); Base Excess ABG -10.5 mmol/L (-2.0-2.0); Blood Gas Allen Test Pos; Blood Gas Operator Identificat CAK; Blood Gas Sample Site Radial, left; Blood Gas Sample Type Arterial; Carboxyhemoglobin 1.1 %THgb (0.4-20.1); HCO3 ABG 17.5 mmol/L (22-26); HGB O2 Sat 90.5 % (95-100); Ionized Calcium Level - ABG 1.2 mmol/L (1.1-1.4); Methemoglobin 0.7 % (0.4-1.5); Oxygen Device BIPAP; Oxygen Saturation ABG 92.1; PO2 ABG 85.1 mmHg (80.0-100.0); Potassium Level - ABG 4.4 mmol/L (3.5-5.0); Total Hemoglobin 11.8 g/dL (14-18)
--- NOTE | 2022-04-09 11:18 | ECG_ITS ---
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 Measurements Intervals [place] Rate: 62 P: 43 MI: 192 QRS: -65 QRSD: 179 T: 103 QT: 411 QTc: 419 Interpretive Statements A sense V paced rhythm Compared to ECG 04/09/2022 09:40:43 No significant changes Electronically Signed On 04-09-2022 12:20:35 CDT by Windy Larson M.D. [id number]
--- NOTE | 2022-04-09 11:29 | PC.NURSE ---
Patient reported chest pain. This nurse went to bedside and observed patient getting a limited echo. Patient took one nitro and then 5 minutes later reported shortness of breath. Oxygen sats were 97% at this point on room air and patient was breathing 40/minute. Patient started to have audible wheezes and sounded wet despite having 40mg po lasix this am. 40mg IV solumedrol was pushed as well as a RBVO of 0.25mg of xanax po. Patient still tachypenic at 45 breaths per minute. Patient diaphoretic. EKG, Troponins obtained. Blood pressure hypertensive and pulse at 125. Started Levoquin, and gave an additional 20mg IVP of lasix. Patient on bipap. ICU bed obtained. Report called to Sakshi SHAH. Patient transferred to ICU 5.
--- NOTE | 2022-04-09 11:44 | XR_ITS ---
WS: [id number] Exam: XR chest 1V portable [id number] Date/Time of Exam: 04/09/2022 11:51 AM Reason For Exam: intub Compared to the earlier study performed on the same day at 0936 hours. Increasing consolidating infiltrate in the mid left lung zone noted. There is also new extensive righ t perihilar infiltrate since the last exam. The lungs remain fully inflated. Normal cardiomediastinal silhouette. An endotracheal tube has been placed and ends about 7 cm above the marie in good positi on. The lungs are well aerated. An enteric tube has been placed and appears to extend below the level of the diaphragm but the side-port may be at the GE junction. Left-sided cardiac pacer in place. XR/XR chest 1V portable [id number] IMPRESSION: 1. ET tube in satisfactory position. 2. Increasing infiltrate in the mid left lung with new extensive right perihila r infiltrate since previous study. 3. An enteric tube has been placed and appears to extend below the level of the diaphragm but the side-port of the tube may be within the region of the GE norma ction. The tube could be advanced another 3 to 4 cm for optimal position.
--- NOTE | 2022-04-09 11:56 | PM.ACPR ---
Procedure/Consent Time out: Time Out Performed: Yes Consent: Consent for Procedure: Consent obtained from patient Additional Consent Information: Consent including risk versus benefits obtained on 2 separate occasions with patient, family present upstairs, and consent for procedure obtained and discussed again risks of procedure with patient before procedure. Acute Procedures Epistaxis Control: Time out performed: Yes Intubation: Time out performed: Yes Sedative: etomidate Mg given: 16 Paralytic: succinylcholine Mg given: 100 Laryngoscope: Anika ET tube size: 8 Tube secured depth (cm): 23 Tube secured location: lips Tube placement confirmation: visualized tube passing through cords, equal breath sounds bilaterally, confirmation by capnometry and color change noted Patient tolerated procedure: well Additional comments: Thin white frothy liquid spilling over larynx. XR ordered. Discussed w family.
[2022-04-09] MEDS: succinylcholine 20 mg/mL SDV 10mL IVP (12:18)
[2022-04-09] MEDS: propofol 1,000 MG/100 ML INJ 2.4 MG IV (12:18)
[2022-04-09 12:24] LABS: Troponin 5 2HR 89.22 ng/L (0-15)
[2022-04-09 12:28] LABS: Troponin 5 2HR Delta 25.22 ABS# (0-10)
--- NOTE | 2022-04-09 13:09 | PM.PN ---
Subjective Subjective: This morning his condition worsened, feeling more dyspneic, had some left-sided shoulder discomfort, but mostly felt he could not catch his breath with some wheezing, crackles. Received breathing treatment. Requested to be started on BiPAP, also reporting to be very anxious. Received anxiety medication. Received his morning dose of Lasix, subsequently additional Lasix given 20 mg IV. Chest x-ray with new diffuse groundglass infiltrate in mid left lung zone suggestive of pneumonia. COVID PCR requested. Antibiotic broadened to Levaquin. Xanax did not provide adequate anxiety relief, required Versed push. Despite BiPAP support, additional Lasix, still respiratory distress, with crackles, suspicion of acute pulmonary edema, ABG with hypercapnic respiratory failure, respiratory acidosis, due to tiring out as per discussion with him and family and his wishes proceeded with urgent intubation for mechanical ventilatory support. Vitals/I&O/Wt Last Vital Signs Temp 98.1 F 04/09/22 08:00 Pulse 69 04/09/22 12:00 Resp 25 H 04/09/22 12:04 BP 131/68 04/09/22 08:00 Pulse Ox 99 04/09/22 12:04 O2 Del Method 04/09/22 12:00 O2 Flow Rate 3 04/08/22 12:15 FiO2 100 04/09/22 12:04 04/08/22 04/09/22 04/09/22 22:59 06:59 14:59 Intake Total 1210 / 1850 390 / 390 Balance 1210 / 1025 390 / 390 Weight last 48 hrs Weight 79.968 kg Weight 77.111 kg Physical Exam Narrative: Family at bedside. Const: COMMON NORMALS: patient oriented x3 and alert GENERAL APPEARANCE: cooperative and anxious ORIENTATION/CONSCIOUSNESS: Yes awake HENMT: COMMON NORMALS: oropharynx normal Resp: EFFORT & INSPECTION: No able to speak in complete sentences and Yes tachypneic AUSCULTATION: crackles and diminished lung sounds Cardio: COMMON NORMALS: regular rhythm, S1 normal heart sound present, S2 normal heart sound present and No murmurs present (Cardio) RHYTHM: regular rhythm HEART SOUNDS: S1 normal heart sound present and S2 normal heart sound present GI: COMMON NORMALS: Normal to inspection, nondistended, normoactive bowel sounds present, Soft to palpation and non-tender PALPATION: Yes Soft to palpation Extremity: COMMON NORMALS: no joint enlargement and no pedal edema Neuro: COMMON NORMALS: patient oriented x3 and moves all extremities SENSORIUM/ORIENTATION: Yes alert Skin: COMMON NORMALS: no rashes or lesions noted GENERAL SKIN EXAM: no rashes or lesions noted Data : 04/09/22 05:07 04/09/22 05:07 A&P Assessment and plan (1) Acute respiratory failure with hypoxia: Worsening acute respiratory failure with hypoxia, acute hypercapnic respiratory failure with respiratory acidosis, with respiratory distress, acute pulmonary edema. Discussed with him and his family. Underlying CHF with cardiomyopathy, low EF, acute CHF had improved, but appears to have decompensated again, but appears to also have acute pulmonary edema possibly triggered with negative pressure, perhaps sleep apnea. does report he snores intermittently at home. Has not had a sleep study previously. During intubation noted somewhat small epiglottis, airway, noted thin white frothy liquid with pulmonary edema. Received extra Lasix. Currently continue mechanical ventilatory support. We will reassess chest x-ray in the morning again. Possible pneumonia, antibiotic broadened to Levaquin. Assessing COVID-19 PCR as well. Assessing troponin EKG series, limited echocardiogram as well. Sedation started with fentanyl, added propofol as well, he is somewhat restless reportedly currently however, blood pressure has also decreased, reported MAP 55. Requested uptitrate fentanyl, and Versed, stop propofol, adding for now Levophed as well to maintain MAP 60-65 mmHg. Has low EF, mild aortic stenosis. Ryan placed. Monitor KELLY. Discussed OG tube will be advanced 4-5 cm as well. May benefit from CPAP with sleep due to CHF, pulmonary edema. Recurrent intubation in the past secondary to CHF. Noted some LICO on CKD today, creatinine 1.9, depending on blood pressure, urine output, consider Lasix drip. PPI, VT prophylaxis. (2) Congestive heart failure: Acute decompensation of systolic congestive heart failure, as above. (3) Hypothyroidism: Qualifiers: Hypothyroidism type: unspecified Qualified Code(s): E03.9 - Hypothyroidism, unspecified (4) Non-ST elevation [place] (NSTEMI): Complete troponin, EKG series. Noted additionally increased, although again with respiratory failure. Requested limited TTE. Continue antiplatelet medications. (5) Chronic kidney disease: Qualifiers: Chronic kidney disease stage: stage 2 (mild) Qualified Code(s): N18.2 - Chronic kidney disease, stage 2 (mild) (6) Pacemaker: (7) Aortic stenosis: Qualifiers: Cardiac valve disease etiology: nonrheumatic Qualified Code(s): I35.0 - Nonrheumatic aortic (valve) stenosis (8) CAD (coronary artery disease): Qualifiers: Coronary Disease-Associated Artery/Lesion type: [place] artery [place] vs. transplanted heart: [place] heart Associated angina: angina presence unspecified Qualified Code(s): I25.10 - Atherosclerotic heart disease of [place] coronary artery without angina pectoris (9) HTN (hypertension): Qualifiers: Hypertension type: essential hypertension Qualified Code(s): I10 - Essential (primary) hypertension (10) HLD (hyperlipidemia): Qualifiers: Hyperlipidemia type: unspecified Qualified Code(s): E78.5 - Hyperlipidemia, unspecified (11) Ischemic cardiomyopathy: (12) COPD exacerbation: Plan Hyperglycemia: Add insulin sliding scale. Attestations Medical Necessity Statement*: Continue assessment of management of worsened respiratory failure, with acute pulmonary edema, decompensated CHF with underlying low EF. Critical Care Time: The high probability of a clinically significant, sudden or life threatening deterioration of the patient's hemodynamic, respiratory, cardiac system(s) required my full and direct attention, intervention and personal management. The critical care time is as shown. This time is in addition to time spent performing any reported procedures but includes the following: x Data and vital sign review and interpretation x Patient assessment, examination and intervention x Documentation x Medication orders and management Critical Care Time (min): 55 Coding Level of Care Code Acute Keeper Helper for [facility] Fwd Diagnoses Acute respiratory failure with hypoxia J96.01 Congestive heart failure I50.9 Hypothyroidism E03.9 Hypothyroidism type: unspecified Non-ST elevation [place] (NSTEMI) I21.4 Chronic kidney disease N18.2 Chronic kidney disease stage: stage 2 (mild) Pacemaker Z95.0 Aortic stenosis I35.0 Cardiac valve disease etiology: nonrheumatic CAD (coronary artery disease) I25.10 Coronary Disease-Associated Artery/Lesion type: [place] artery [place] vs. transplanted heart: [place] heart Associated angina: angina presence unspecified HTN (hypertension) I10 Hypertension type: essential hypertension HLD (hyperlipidemia) E78.5 Hyperlipidemia type: unspecified Ischemic cardiomyopathy I25.5 COPD exacerbation J44.1
[2022-04-09 14:06] LABS: ABG PCO2 33.8 mmHg (35-45); ABG PH Result 7.34 (7.35-7.45); Alveolar-Arterial Oxygen Gradi 25.9 mmHg (5-10); Arterial Blood Gas Hematocrit 32.9 % (42-52); Base Excess ABG -6.8 mmol/L (-2.0-2.0); Blood Gas Allen Test Pos; Blood Gas Operator Identificat CAK; Blood Gas Sample Site Radial, left; Blood Gas Sample Type Arterial; Carboxyhemoglobin 0.8 %THgb (0.4-20.1); HCO3 ABG 18.2 mmol/L (22-26); HGB O2 Sat > 100.0 % (95-100); Ionized Calcium Level - ABG 1.1 mmol/L (1.1-1.4); Methemoglobin < 0.0 % (0.4-1.5); Oxygen Device VENT; Oxygen Saturation ABG > 100.0; Potassium Level - ABG 4.1 mmol/L (3.5-5.0); Total Hemoglobin 10.7 g/dL (14-18)
[2022-04-09 15:33] LABS: Adenovirus Not Detected (NOT DETECT); Chlamydia Pneumoniae Not Detected (NOT DETECT); Coronavirus 229E,HKU1,NL63,OC4 Not Detected (NOT DETECT); Human Metapneumovirus Not Detected (NOT DETECT); Human Rhinovirus/Enterovirus Not Detected (NOT DETECT); Influenza A Not Detected (NOT DETECT); Influenza A H1 Not Detected (NOT DETECT); Influenza A H1-2009 Not Detected (NOT DETECT); Influenza A H3 Not Detected (NOT DETECT); Influenza B Not Detected (NOT DETECT); Mycoplasma Pneumoniae Not Detected (NOT DETECT); Parainfluenza Virus Type 1 Not Detected (NOT DETECT); Parainfluenza Virus Type 2 Not Detected (NOT DETECT); Parainfluenza Virus Type 3 Not Detected (NOT DETECT); Parainfluenza Virus Type 4 Not Detected (NOT DETECT); Respiratory Syncytial Virus A Not Detected (NOT DETECT); Respiratory Syncytial Virus B Not Detected (NOT DETECT); SARS-COV-2 Not Detected (NOT DETECT)
[2022-04-09 15:42] LABS: Glucose Point of Care 108 mg/dL (70-110)
--- NOTE | 2022-04-09 15:51 | ECG_ITS ---
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 Measurements Intervals [place] Rate: 80 P: 55 IA: 171 QRS: -69 QRSD: 174 T: 103 QT: 397 QTc: 458 Interpretive Statements ELECTRONIC VENTRICULAR PACEMAKER ABNORMAL RHYTHM ECG Compared to ECG 04/09/2022 11:04:08 No significant changes Electronically Signed On 04-10-2022 6:09:23 CDT by Windy Larson M.D. [id number]
--- NOTE | 2022-04-09 16:03 | PC.NURSE ---
PT ARRIVED TO THE FLOOR AT APPROXIMATELY 1100. PT WAS IN PRETTY SEVERE RESPIRATORY DISTRESS. DR PADGETT DOWN TO SEE PT. PLAN IS TO INTUBATE PT. PT AGREED TO THE INTUBATION. PT SUCCESSFULLY INTUBATED BY DR PADGETT AT 1135. PT IS CURRENTLY SEDATED. HE OPENS HIS EYES TO VERBAL COMMANDS AND ANSWERS YES/NO QUESTIONS. PT SAYS HE IS NOT IN ANY PAIN. PT DOES NOT APPEAR TO BE IN ANY DISTRESS. CONTINUING TO MONITOR PT.
[2022-04-09 16:41] LABS: Troponin 5 6HR 225.9 ng/L (0-15)
[2022-04-09 16:42] LABS: Troponin 5 6HR Delta 161.9 ng/L (0-12)
[2022-04-09] MEDS: FUROsemide 10 mg/mL SDV 4mL 40 MG IVP (16:52)
--- NOTE | 2022-04-09 18:27 | PM.CONSULT ---
Providers/Reason For Consult Consulting Physician/Specialty*: Jhonathan Jara MD/ Cardiology Reason for Consult*: Congestive heart failure Requesting Physician: Dr Garcia Attending Physician: Fareed Garcia Primary Care Provider: Gregorio Cunningham DO History of Present Illness History of Present Illness Juarez Delgado is a 76 year old male with past medical history of smoking, COPD, congestive heart failure with EF of 20 to 25% presented to the hospital with 2 to 3 days of worsening shortness of breath. Patient was initially put on BiPAP. However given his worsening shortness of breath, was intubated. He is awake at this time. Responding appropriately. Denies current chest pain. Cardiology was consulted as he had troponin elevation. His renal function is also worsening. Review of Systems Narrative: Unable to assess because of intubation Medications/Allergies Home Medications Medication Instructions Recorded Confirmed Last Taken Type aspirin 81 mg tablet,delayed 81 mg PO QAM 08/25/19 04/08/22 04/08/22 History release levothyroxine 75 mcg tablet 75 mcg PO QAM 08/25/19 04/08/22 04/08/22 History (Synthroid) furosemide 40 mg tablet 60 mg PO DIRECTED #135 tabs 05/14/21 04/08/22 04/08/22 Rx atorvastatin 40 mg tablet 40 mg PO QAM #90 tabs 11/01/21 04/08/22 04/08/22 Rx spironolactone 25 mg tablet 25 mg PO QAM #90 tabs 12/03/21 04/08/22 04/08/22 Rx nitroglycerin 0.4 mg sublingual 0.4 mg sublingual Q5M PRN chest 12/12/21 04/08/22 01/11/22 Rx tablet (Nitrostat) pain #25 tabs carvedilol 3.125 mg tablet 3.125 mg PO BID #90 tabs 02/06/22 04/08/22 04/08/22 Rx clopidogrel 75 mg tablet (Plavix) 75 mg PO QAM #90 tabs 02/11/22 04/08/22 04/08/22 Rx Allergies Allergy/AdvReac Type Severity Reaction Status Date / Time No Known Allergies Allergy Verified 04/08/22 05:58 Current Medications Generic Name Dose Route Start Last Admin Trade Name Freq PRN Reason Stop Dose Admin Albuterol/Ipratropium 3 ml 04/08/22 08:00 04/09/22 14:59 Ipratropium-Albuterol 3 Ml Neb INHALATION 3 ml Q4H.RESPIRATORY DAVID Administration Aspirin 81 mg 04/08/22 06:00 04/09/22 05:05 Aspirin 81 Mg Ec Tablet PO 81 mg QAM DAVID Administration Atorvastatin Calcium 40 mg 04/08/22 06:00 04/09/22 05:05 Atorvastatin 40 Mg Tablet PO 40 mg QAM DAVID Administration Budesonide 0.5 mg 04/08/22 08:00 04/09/22 07:42 Budesonide 0.5 Mg/2 Ml Neb INHALATION 0.5 mg BID.RESPIRATORY DAVID Administration Carvedilol 3.125 mg 04/08/22 09:00 04/09/22 16:53 Carvedilol 3.125 Mg Tablet PO 3.125 mg BID DAVID Administration Clopidogrel Bisulfate 75 mg 04/08/22 06:00 04/09/22 05:05 Clopidogrel 75 Mg Tablet PO 75 mg QAM DAVID Administration Enoxaparin Sodium 40 mg 04/08/22 05:45 04/09/22 05:05 Enoxaparin 40 Mg/0.4 Ml Syringe SUBCUT 40 mg Q24H DAVID Administration Furosemide 40 mg 04/09/22 16:00 04/09/22 16:52 Furosemide 10 Mg/Ml Sdv 4ml IVP 40 mg Q12H DAVID Administration Guaifenesin 1,200 mg 04/08/22 16:45 04/09/22 16:53 Guaifenesin 600 Mg Tablet PO 1,200 mg BID DAVID Administration Levofloxacin/Dextrose 750 mg in 150 mls @ 100 mls/hr 04/09/22 10:30 04/09/22 12:19 Levaquin-D5w IV Infused Q48H DAVID Infusion Protocol Fentanyl 1,000 mcg/ Sodium 100 mls @ 0 mls/hr 04/09/22 11:45 04/09/22 12:00 Chloride IV 50 mcg/hr .Q0M DAVID 5 mls/hr Titration Protocol Per Protocol Midazolam HCl 100 mg/ Sodium 100 mls @ 0 mls/hr 04/09/22 12:45 04/09/22 13:28 Chloride IV 1 mg/hr .Q0M DAVID 1 mls/hr Administration Protocol Per Protocol Norepinephrine Bitartrate 4 mg 254 mls @ 0 mls/hr 04/09/22 12:45 04/09/22 16:53 / Dextrose IV 2 mcg/min .Q0M DAVID 7.62 mls/hr Titration Protocol Per Protocol Insulin Human Lispro 0 unit 04/09/22 13:30 04/09/22 15:41 Insulin Lispro 100 Unit/1 Ml SUBCUT Not Given Q8H DAVID Protocol Levothyroxine Sodium 75 mcg 04/08/22 06:00 04/09/22 05:05 Levothyroxine 75 Mcg Tablet PO 75 mcg QAM DAVID Administration Methylprednisolone Sodium Succinate 40 mg 04/08/22 17:00 04/09/22 16:52 Methylprednisolone Sod Succ 40 Mg/Ml Inj IVP 40 mg Q6H DAVID Administration Pantoprazole Sodium 40 mg 04/08/22 05:21 04/09/22 05:05 Pantoprazole 40 Mg Sdv IVP 40 mg Q24H DAVID Administration Spironolactone 25 mg 04/08/22 06:00 04/09/22 05:05 Spironolactone 25 Mg Tablet PO 25 mg QAM DAVID Administration PFSH Acute PFSH: Medical History Aortic stenosis Echo 10/01 with mild aortic stenosis, [place] 1.6 cm2, mean gradient 11.6 mmHg, peak velocity 2.4 m/sec CAD (coronary artery disease) Angiogram August 2019 demonstrated EF around 35%, LAD chronic occlusion, first obtuse marginal 60% stenosis, RCA ulcerated 90% stenosis which was stented Chronic kidney disease COPD (chronic obstructive pulmonary disease) Erectile dysfunction HLD (hyperlipidemia) HTN (hypertension) Hypothyroidism Ischemic cardiomyopathy Squamous cell carcinoma skin of arm Tobacco abuse Surgical History AICD (automatic cardioverter/defibrillator) present Pacemaker Medtronic S/P PTCA (percutaneous transluminal coronary angioplasty) August 2019 Family History Brother CAD (coronary artery disease) Social History Smoking and tobacco status: current every day smoker cigarettes Packs smoked per day: 1 Years cigarettes smoked: 50 Alcohol intake: current Alcohol intake frequency: few times a month Vitals/I&O/Wt Last Vital Signs Temp 98.1 F 04/09/22 08:00 Pulse 66 04/09/22 18:00 Resp 27 H 04/09/22 18:20 BP 95/50 04/09/22 18:00 Pulse Ox 98 04/09/22 18:20 O2 Del Method 04/09/22 14:53 O2 Flow Rate 3 04/08/22 12:15 FiO2 35 04/09/22 18:20 04/09/22 04/09/22 04/09/22 06:59 14:59 22:59 Intake Total 460.046 / 460.046 50.165 / 510.211 Balance 460.046 / 460.046 50.165 / 510.211 Weight last 48 hrs Weight 176 lb 4.8 oz Weight 170 lb Physical Exam Narrative: GENERAL: Patient is intubated HEENT: No cyanosis. No icterus. No pallor. [] HEART: Regular S1 and S2. No murmur, rub or gallop. [] LUNGS: Diminished breathing sounds ABDOMEN: Soft CENTRAL NERVOUS SYSTEM: Grossly nonfocal. [] EXTREMITIES: Lower extremities with 1+ edema bilaterally. Pulses palpable in the lower extremities, both dorsalis pedis and posterior tibial. [] Urinary Catheter Management: Ryan: Cath Placed During This Visit: no Data : 04/10/22 03:37 04/10/22 03:37 A&P Assessment and plan (1) COPD exacerbation: (2) Congestive heart failure: (3) Acute respiratory failure with hypoxia: (4) LV dysfunction: (5) Non-ST elevation [place] (NSTEMI): (6) HTN (hypertension): Qualifiers: Hypertension type: essential hypertension Qualified Code(s): I10 - Essential (primary) hypertension (7) CAD (coronary artery disease): Qualifiers: Coronary Disease-Associated Artery/Lesion type: [place] artery [place] vs. transplanted heart: [place] heart Associated angina: angina presence unspecified Qualified Code(s): I25.10 - Atherosclerotic heart disease of [place] coronary artery without angina pectoris (8) Ischemic cardiomyopathy: Plan Patient has multifactorial respiratory failure. Also appears to be volume overloaded. Continue diuresis. Monitor renal function Continue aspirin and Plavix. Continue anticoagulation. His troponins have trended up. Repeat echocardiogram shows persistently low LV systolic function with EF of 20 to 25%. Patient will need ischemic work-up with a coronary angiogram once renal function is stable. Thank you for involving us with care of this patient. We will continue to follow. Please call with questions Consult Attestations Medical Necessity Statement: Care expected to cross 2 midnights Coding Level of Care Code Acute Utility Driver for [facility] Fwd Diagnoses COPD exacerbation J44.1 Congestive heart failure I50.9 Acute respiratory failure with hypoxia J96.01 LV dysfunction I51.9 Non-ST elevation [place] (NSTEMI) I21.4 HTN (hypertension) I10 Hypertension type: essential hypertension CAD (coronary artery disease) I25.10 Coronary Disease-Associated Artery/Lesion type: [place] artery [place] vs. transplanted heart: [place] heart Associated angina: angina presence unspecified Ischemic cardiomyopathy I25.5
--- NOTE | 2022-04-09 19:06 | PC.NURSE ---
PT HAS CONTINUED TO DO WELL THE REMAINDER OF THIS NURSE'S SHIFT. HE IS RESTING IN BED COMFORTABLY. DOES NOT COMPLAIN OF ANY PAIN. SHAKES HIS HEAD YES WHEN ASKED IF HE IS COMFORTABLE. SHAKES HIS HEAD NO WHEN ASKED IF HE IS IN PAIN. PT DOES APPEAR COMFORTABLE TO THIS NURSE. BEDSIDE REPORT WITH ALYSSA CHAN. ALL QUESTIONS ANSWERED.
[2022-04-09 22:05] LABS: Glucose Point of Care 125 mg/dL (70-110)
[2022-04-10] VITALS (75 sets, daily range): BP systolic 83–133; BP diastolic 34–86; PULSE 60–99; RESP 20–29; TEMP 36.6–36.8; O2SAT 93–100
[2022-04-10] MEDS: ipratropium-albuterol 3 mL Neb INHALATION ×7 (00:24→23:47)
[2022-04-10 04:12] LABS: Basophils % 0.1 %; Hemoglobin 9.5 g/dL (11.7-16.6); Lymphocytes # 0.6 10^3/uL (0.8-4.8); Lymphocytes % 4.1 %; Mean Corpuscular HGB Conc 32.8 g/dL (30.0-36.0); Mean Corpuscular Hemoglobin 30.5 pg (28.0-34.0); Mean Corpuscular Volume 93.2 fl (80-94); Mean Platelet Volume 12.4 fL (7.4-10.4); Monocytes # 0.4 10^3/uL (0.2-0.9); Monocytes % 2.8 %; Neutrophils # 12.74 10^3/uL (1.8-7.7); Neutrophils % 92.4 %; Nucleated Red Blood Cells % 0 %; Platelet Count 193 10^3/cmm (130-400); Red Blood Count 3.11 10^6/uL (4.1-5.3); Red Cell Distribution Width 13.8 % (12.1-15.1); White Blood Count 13.8 10^3/uL (4.0-10.0)
[2022-04-10] MEDS: FUROsemide 10 mg/mL SDV 4mL 40 MG IVP ×2 (04:37→16:30)
[2022-04-10] MEDS: pantoprazole 40 mg SDV IVP (04:38)
[2022-04-10 04:48] LABS: Anion Gap 19.7 (5-19); Blood Urea Nitrogen 53 mg/dL (8-23); Calcium 8.4 mg/dL (8.5-10.5); Carbon Dioxide 20 mmol/L (22-29); Chloride 96 mmol/L (98-107); Glucose 133 mg/dL (65-115); Osmolality Calculated 288 mOsm/kg (285-295); Potassium 4.7 mmol/L (3.5-5.1); Sodium 131 mmol/L (136-145)
[2022-04-10 04:52] LABS: Glucose Point of Care 133 mg/dL (70-110)
[2022-04-10] MEDS: enoxaparin 40 mg/0.4 mL Syringe SUBCUT (04:52)
[2022-04-10] MEDS: clopidogrel 75 mg Tablet PO (05:38)
[2022-04-10] MEDS: atorvastatin 40 mg Tablet PO (05:38)
[2022-04-10] MEDS: spironolactone 25 mg Tablet PO (05:38)
[2022-04-10] MEDS: levothyroxine 75 mcg Tablet PO (05:38)
--- NOTE | 2022-04-10 05:43 | PC.NURSE ---
Shift Note Frequent safety and comfort rounds continue. Orders and/or nursing care completed as indicated. Patient monitored for response to intervention and treatment(s). Education provided includes vent management and medications. Patient needs reinforcement teaching. Patient had an uneventful shift he remains on the ventilator, settings as follows; mode-VC-AC, FiO2-30%, VT-500, rate-20, PEEP-8. No wounds or skin issues noted at this time. Ryan catheter drained 500 mls of urine overnight. Versed, Fentanyl and Levophed infusing per protocol please see MAR for infusion rates. Patient follows all commands and shakes head yes and no when asked questions at this time. Will continue to monitor.
--- NOTE | 2022-04-10 06:00 | XR_ITS ---
WS: [id number] Exam: XR chest 1V portable [id number] Date/Time of Exam: 04/10/2022 4:11 AM Reason For Exam: Hypoxia Comparison 04/09/2022. Previously described bilateral pulmonary infiltrates show significant improvement since previous stud y. Cardiomediastinal silhouette is unremarkable. ET tube remains in satisfactory position ending abou t 8 cm above the marie. An enteric tube is noted in the stomach. Left-sided cardiac pacer in place. The lungs are fully inflated. No pleural effusions. XR/XR chest 1V portable [id number] IMPRESSION: 1. Previously noted bilateral pulmonary infiltrates almost completely resolved since prior study. 2. ET tube and enteric tube both in satisfactory position.
[2022-04-10 06:12] LABS: ABG PCO2 33.2 mmHg (35-45); ABG PH Result 7.38 (7.35-7.45); Alveolar-Arterial Oxygen Gradi 9.4 mmHg (5-10); Arterial Blood Gas Hematocrit 44.4 % (42-52); Base Excess ABG -4.8 mmol/L (-2.0-2.0); Blood Gas Allen Test Pos; Blood Gas Operator Identificat JB; Blood Gas Sample Site Radial, right; Blood Gas Sample Type Arterial; HCO3 ABG 19.5 mmol/L (22-26); HGB O2 Sat 97.4 % (95-100); Ionized Calcium Level - ABG 1.1 mmol/L (1.1-1.4); Methemoglobin 0.1 % (0.4-1.5); Oxygen Device VENT; Oxygen Saturation ABG 98.5; Potassium Level - ABG 4.1 mmol/L (3.5-5.0); Total Hemoglobin 14.5 g/dL (14-18)
[2022-04-10] MEDS: budesonide 0.5 mg/2 mL Neb INHALATION ×2 (07:45→20:37)
[2022-04-10] MEDS: carvedilol 3.125 mg Tablet PO ×2 (08:58→17:56)
--- NOTE | 2022-04-10 12:14 | P.PN_ITS ---
Subjective Subjective: Patient is still intubated.He is alert and answering appropriately. No chest pain. Vitals/I&O/Wt Last Vital Signs Temp 98.2 F 04/10/22 04:30 Pulse 75 04/10/22 11:20 Resp 20 H 04/10/22 11:15 BP 118/64 04/10/22 10:00 Pulse Ox 99 04/10/22 11:15 O2 Del Method 04/10/22 11:10 O2 Flow Rate 3 04/08/22 12:15 FiO2 30 04/10/22 11:15 04/09/22 04/10/22 04/10/22 22:59 06:59 14:59 Intake Total 95.165 / 555.211 48.625 / 603.836 122.555 / 122.555 Output Total 200 / 200 500 / 700 Balance -104.835 / 355.211 -451.375 / -96.164 122.555 / 122.555 Physical Exam Narrative: GENERAL: Patient is intubated HEENT: No cyanosis. No icterus. No pallor. [] HEART: Regular S1 and S2. No murmur, rub or gallop. [] LUNGS: Diminished breathing sounds ABDOMEN: Soft CENTRAL NERVOUS SYSTEM: Grossly nonfocal. [] EXTREMITIES: Lower extremities with 1+ edema bilaterally. Pulses palpable in the lower extremities, both dorsalis pedis and posterior tibial. [] Urinary Catheter Management: Ryan: Cath Placed During This Visit: yes Reason for Continuing Indwelling Catheter: Accurate Measurement of Urinary Output in Critically Ill Patients Urinary Catheter Date of Insertion: 04/09/22 Urinary Catheter Time of Insertion: 11:15 Data : 04/11/22 03:39 04/11/22 03:39 Micro: Microbiology 04/09/22 12:15 Gram Stain - Final Sputum - Endotracheal Tube Aspirate Sputum Culture - Preliminary A&P Assessment and plan (1) COPD exacerbation: (2) Congestive heart failure: (3) Acute respiratory failure with hypoxia: (4) LV dysfunction: (5) Non-ST elevation [place] (NSTEMI): (6) HTN (hypertension): Qualifiers: Hypertension type: essential hypertension Qualified Code(s): I10 - Essential (primary) hypertension (7) CAD (coronary artery disease): Qualifiers: Coronary Disease-Associated Artery/Lesion type: [place] artery [place] vs. transplanted heart: [place] heart Associated angina: angina presence unspecified Qualified Code(s): I25.10 - Atherosclerotic heart disease of [place] coronary artery without angina pectoris (8) Ischemic cardiomyopathy: Plan Diuresis to continue. Creatinine has worsened. Monitor closely Continue aspirin and Plavix. Continue anticoagulation. His troponins have trended up. Repeat echocardiogram shows persistently low LV systolic function with EF of 20 to 25%. Patient will need ischemic work-up with a coronary angiogram once renal function is stable. Thank you for involving us with care of this patient. We will continue to follow. Please call with questions Attestations Medical Necessity Statement*: Care expected to cross 2 midnights. Coding Level of Care Code Acute Underwear Welter for [facility] Fwd Diagnoses COPD exacerbation J44.1 Congestive heart failure I50.9 Acute respiratory failure with hypoxia J96.01 LV dysfunction I51.9 Non-ST elevation [place] (NSTEMI) I21.4 HTN (hypertension) I10 Hypertension type: essential hypertension CAD (coronary artery disease) I25.10 Coronary Disease-Associated Artery/Lesion type: [place] artery [place] vs. transplanted heart: [place] heart Associated angina: angina presence unspecified Ischemic cardiomyopathy I25.5
--- NOTE | 2022-04-10 13:07 | P.PN_ITS ---
Subjective Subjective: He is intubated, mechanically ventilated, is alert, nods answers to questions. Feels better. Breathing currently is comfortable. No chest pain. Discussed with him and his , currently is weaning down on pressor. Discussed findings suspicious for pneumonia on chest x-ray. Discussed additional concerns with recurrent CHF, cardiac evaluation. Vitals/I&O/Wt Last Vital Signs Temp 98.2 F 04/10/22 04:30 Pulse 86 04/10/22 13:00 Resp 20 H 04/10/22 11:15 BP 126/86 04/10/22 13:00 Pulse Ox 97 04/10/22 13:00 O2 Del Method 04/10/22 13:00 O2 Flow Rate 3 04/08/22 12:15 FiO2 30 04/10/22 13:00 04/09/22 04/10/22 04/10/22 22:59 06:59 14:59 Intake Total 95.165 / 555.211 48.625 / 603.836 122.555 / 122.555 Output Total 200 / 200 500 / 700 Balance -104.835 / 355.211 -451.375 / -96.164 122.555 / 122.555 Physical Exam Narrative: at bedside. Const: COMMON NORMALS: alert GENERAL APPEARANCE: cooperative, anxious and patient mechanically ventilated ORIENTATION/CONSCIOUSNESS: Yes awake HENMT: COMMON NORMALS: oropharynx normal Resp: COMMON NORMALS: clear to auscultation bilaterally AUSCULTATION: clear to auscultation bilaterally Cardio: COMMON NORMALS: regular rhythm, S1 normal heart sound present, S2 normal heart sound present and No murmurs present (Cardio) RHYTHM: regular rhythm HEART SOUNDS: S1 normal heart sound present and S2 normal heart sound present GI: COMMON NORMALS: Normal to inspection, nondistended, normoactive bowel sounds present, Soft to palpation and non-tender PALPATION: Yes Soft to palpation Extremity: COMMON NORMALS: no joint enlargement and no pedal edema Neuro: COMMON NORMALS: moves all extremities SENSORIUM/ORIENTATION: Yes alert Skin: COMMON NORMALS: no rashes or lesions noted GENERAL SKIN EXAM: no rashes or lesions noted Urinary Catheter Management: Ryan: Cath Placed During This Visit: yes Reason for Continuing Indwelling Catheter: Accurate Measurement of Urinary Output in Critically Ill Patients Urinary Catheter Date of Insertion: 04/09/22 Urinary Catheter Time of Insertion: 11:15 Data : 04/10/22 03:37 04/10/22 03:37 Micro: Microbiology 04/09/22 12:15 Gram Stain - Final Sputum - Endotracheal Tube Aspirate Sputum Culture - Preliminary A&P Assessment and plan (1) Acute respiratory failure with hypoxia: Oxygenation has been gradually improving. Doing very better this morning. Down to 30% FiO2. Sounds much clear. However, discussed with him and his regarding significant worsening in renal function, creatinine up to 2.8 with kidney injury. Does appear to be some urine, but unclear amount so far. In case of oliguria and inability to diuresis may again run into trouble with respiratory distress and pulmonary edema. For now continue mechanical ventilatory support, assess urine output. Reassess renal function. Discussed with cardiology, add also milrinone. If producing good urine, should be able to extubate. Discussed with him and his regarding possible pneumonia. Continue Levaquin. COVID-19 PCR negative. May benefit from CPAP with sleep due to CHF, recurrent pulmonary edema, possible sleep apnea. Recurrent intubation in the past secondary to CHF. PPI, VTE prophylaxis. (2) Congestive heart failure: Appreciate cardiology recommendations. Currently with acute kidney injury. Follow-up renal function. May benefit from additional assessment with angiography with improvement of renal function. Diuresis for acute decompensation of systolic congestive heart failure, as above. (3) Hypothyroidism: Qualifiers: Hypothyroidism type: unspecified Qualified Code(s): E03.9 - Hypothyroidism, unspecified (4) Non-ST elevation MS (NSTEMI): Complete troponin, EKG series. Noted additionally increased, although again with respiratory failure. Limited TTE without significant change, EF 20-25%. Cannot assess R WMA. Continue antiplatelet medications. Possible type II MS. Possible progression of CAD. With recurrent CHF. Would benefit from additional plan as above. (5) Chronic kidney disease: Qualifiers: Chronic kidney disease stage: stage 2 (mild) Qualified Code(s): N18.2 - Chronic kidney disease, stage 2 (mild) (6) Pacemaker: (7) Aortic stenosis: Mild aortic stenosis Qualifiers: Cardiac valve disease etiology: nonrheumatic Qualified Code(s): I35.0 - Nonrheumatic aortic (valve) stenosis (8) CAD (coronary artery disease): Qualifiers: Associated angina: angina presence unspecified Coronary Disease- Associated Artery/Lesion type: [place] artery [place] vs. transplanted heart: [place] heart Qualified Code(s): I25.10 - Atherosclerotic heart disease of [place] coronary artery without angina pectoris (9) HTN (hypertension): Qualifiers: Hypertension type: essential hypertension Qualified Code(s): I10 - Essential (primary) hypertension (10) HLD (hyperlipidemia): Qualifiers: Hyperlipidemia type: unspecified Qualified Code(s): E78.5 - Hyperlipidemia, unspecified (11) Ischemic cardiomyopathy: (12) COPD exacerbation: Plan Hyperglycemia: Add insulin sliding scale. Attestations Medical Necessity Statement*: Continue admission for assessment of management of CHF exacerbation with severe cardiomyopathy, EF 20-25%, recurrent pulmonary edema/CHF exacerbation, currently in setting of worsening renal function. Coding Level of Care Code Acute Senior Mechanical Development Engineer for Chg Fwd Exam Comprehensive Diagnoses Acute respiratory failure with hypoxia J96.01 Congestive heart failure I50.9 Hypothyroidism E03.9 Hypothyroidism type: unspecified Non-ST elevation MS (NSTEMI) I21.4 Chronic kidney disease N18.2 Chronic kidney disease stage: stage 2 (mild) Pacemaker Z95.0 Aortic stenosis I35.0 Cardiac valve disease etiology: nonrheumatic CAD (coronary artery disease) I25.10 Associated angina: angina presence unspecified Coronary Disease-Associated Artery/Lesion type: [place] artery [place] vs. transplanted heart: [place] heart HTN (hypertension) I10 Hypertension type: essential hypertension HLD (hyperlipidemia) E78.5 Hyperlipidemia type: unspecified Ischemic cardiomyopathy I25.5 COPD exacerbation J44.1
[2022-04-10 13:43] LABS: Glucose Point of Care 131 mg/dL (70-110)
--- NOTE | 2022-04-10 14:27 | PC.CHAP ---
Pastoral Care Encounter/Spiritual Assessment Type of Contact [] Declined loans officer visit [] Patient/Family/Request visit [] Outpatient visit [] Follow-up visit [] Physician referral [] Code/Alert [] Routine visit [] Staff referral [] Actively dying [] Patient sleeping [] Family support [] [] Out of room [] Palliative care [] [x] Receiving care in room [] Pre-surgical visit [] Trauma [] Long length of stay [x] ICU visit [] Other: Relational/Emotional Strength [] Patient feels connected with others/family/visitors/staff [] Distress [] Loneliness/isolation [] Abandonment Spirituality of Patient [] Person of Cecy [] Attends Tenriism of their Cecy [] Believes in Prayer [] Reads Bible or Restorationism materials [] There are Spiritual issues to be addressed Payroll Technician Interventions [x] Prayer [] Active listening [] Non-anxious presence [] Spiritual/emotional support [] Crisis/trauma care [] Spiritual counseling [] Bereavement support [] Provided bereavement packet [] Provided Bible/devotional materials [] Provided toy/stuffed animal, coloring book to patient or family member [] Provided Communion [] Anointing/[employer] [] Salvation [x Impact on Illness or Injury [] Angry [] Fearful [] Anxious [] Often cries [] Exhaustion [] Unable to work [] Unable to attend evangelical [] Unable to walk/stand [] Unable to read [] Unable to drive [] Unable to eat/drink [] Unable to sleep [] Unable to be with family [] Patient intubated [] Other: Summary Time spent with patient
[2022-04-10 15:27] LABS: Anion Gap 20.4 (5-19); Blood Urea Nitrogen 69 mg/dL (8-23); Calcium 8.5 mg/dL (8.5-10.5); Carbon Dioxide 21 mmol/L (22-29); Chloride 93 mmol/L (98-107); Glucose 125 mg/dL (65-115); Osmolality Calculated 292 mOsm/kg (285-295); Potassium 4.4 mmol/L (3.5-5.1); Sodium 130 mmol/L (136-145)
[2022-04-10 21:21] LABS: Glucose Point of Care 130 mg/dL (70-110)
[2022-04-11] VITALS (69 sets, daily range): BP systolic 90–131; BP diastolic 35–71; PULSE 66–104; RESP 20–25; TEMP 36.6–36.9; O2SAT 87–100
[2022-04-11] MEDS: ipratropium-albuterol 3 mL Neb INHALATION ×5 (03:08→20:13)
[2022-04-11 03:50] LABS: Basophils % 0.1 %; Hematocrit 28.9 % (42.0-52.0); Hemoglobin 9.7 g/dL (11.7-16.6); Lymphocytes # 0.5 10^3/uL (0.8-4.8); Lymphocytes % 3.9 %; Mean Corpuscular HGB Conc 33.6 g/dL (30.0-36.0); Mean Corpuscular Hemoglobin 31.2 pg (28.0-34.0); Mean Corpuscular Volume 92.9 fl (80-94); Mean Platelet Volume 11.9 fL (7.4-10.4); Monocytes # 0.5 10^3/uL (0.2-0.9); Monocytes % 4.3 %; Neutrophils # 11.56 10^3/uL (1.8-7.7); Neutrophils % 91.1 %; Nucleated Red Blood Cells % 0 %; Platelet Count 204 10^3/cmm (130-400); Red Blood Count 3.11 10^6/uL (4.1-5.3); Red Cell Distribution Width 13.8 % (12.1-15.1); White Blood Count 12.7 10^3/uL (4.0-10.0)
[2022-04-11 03:56] LABS: Glucose Point of Care 155 mg/dL (70-110)
[2022-04-11] MEDS: FUROsemide 10 mg/mL SDV 4mL 40 MG IVP (04:01)
[2022-04-11 04:10] LABS: Blood Urea Nitrogen 68 mg/dL (8-23); Calcium 8.6 mg/dL (8.5-10.5); Carbon Dioxide 21 mmol/L (22-29); Chloride 96 mmol/L (98-107); Glucose 158 mg/dL (65-115); Osmolality Calculated 299 mOsm/kg (285-295); Sodium 133 mmol/L (136-145)
[2022-04-11] MEDS: pantoprazole 40 mg SDV IVP (04:48)
[2022-04-11] MEDS: insulin lispro 100 unit/1 mL SUBCUT (04:48)
[2022-04-11] MEDS: spironolactone 25 mg Tablet PO (06:05)
[2022-04-11] MEDS: atorvastatin 40 mg Tablet PO (06:05)
[2022-04-11] MEDS: levothyroxine 75 mcg Tablet PO (06:05)
[2022-04-11] MEDS: aspirin 81 mg EC Tablet PO (06:05)
[2022-04-11] MEDS: budesonide 0.5 mg/2 mL Neb INHALATION ×2 (07:32→20:14)
[2022-04-11] MEDS: clopidogrel 75 mg Tablet PO (07:59)
[2022-04-11] MEDS: carvedilol 3.125 mg Tablet PO ×2 (07:59→18:30)
[2022-04-11] MEDS: enoxaparin 30 mg/0.3 mL Syringe SUBCUT (07:59)
[2022-04-11] MEDS: levofloxacin-dextrose 5 % 750 MG/150 ML PREMIX 100 MG IV (10:36)
--- NOTE | 2022-04-11 11:07 | P.CONIM_ITS ---
Providers/Reason For Consult Consulting Physician/Specialty*: boy christianson md / telenephrology Reason for Consult*: maru on ckd stage 3b Requesting Physician: DR Tinsley Attending Physician: Fareed Garcia Primary Care Provider: Gregorio Cunningham DO History of Present Illness History of Present Illness Juarez Delgado is a 76 year old male w/ CKD stage 3b- b/l cr 1.5 mgm/dl. H/o COPD, CAD, CHrEF-20-25%, , ICD, iscemic CM, hypothyroidism. Pt was admitted on 04/08/22 w/SOB. He was started on steroids, BiPAP, and lasix. That night steroids were added . On 04/09/22, pt was intubated for resp distress. Pt grew gram negative rods from sputum. pt was tried on milrinone w/ hypotension. pt is currently on levo. His cr vikki from 1.6 on 04/08 to 1.9 on 04/09, cr 2.8 on 04/10. today cr 3 and renal is called to consult. Review of Systems Narrative: intubated, pressors. states he feels better. dec edema and comfortable on vent. Medications/Allergies Home Medications Medication Instructions Recorded Confirmed Last Taken Type aspirin 81 mg tablet,delayed 81 mg PO QAM 08/25/19 04/08/22 04/08/22 History release levothyroxine 75 mcg tablet 75 mcg PO QAM 08/25/19 04/08/22 04/08/22 History (Synthroid) furosemide 40 mg tablet 60 mg PO DIRECTED #135 tabs 05/14/21 04/08/22 04/08/22 Rx atorvastatin 40 mg tablet 40 mg PO QAM #90 tabs 11/01/21 04/08/22 04/08/22 Rx spironolactone 25 mg tablet 25 mg PO QAM #90 tabs 12/03/21 04/08/22 04/08/22 Rx nitroglycerin 0.4 mg sublingual 0.4 mg sublingual Q5M PRN chest 12/12/2101/11/22 Rx tablet (Nitrostat) pain #25 tabs carvedilol 3.125 mg tablet 3.125 mg PO BID #90 tabs 02/06/22 04/08/22 04/08/22 Rx clopidogrel 75 mg tablet (Plavix) 75 mg PO QAM #90 tabs 02/11/22 04/08/22 04/08/22 Rx Allergies Allergy/AdvReac Type Severity Reaction Status Date / Time No Known Allergies Allergy Verified 04/08/22 05:58 Current Medications Generic Name Dose Route Start Last Admin Trade Name Wili PRN Reason Stop Dose Admin Albuterol/Ipratropium 3 ml 04/08/22 08:00 04/11/22 07:32 Ipratropium-Albuterol 3 Ml Neb INHALATION 3 ml Q4H.RESPIRATORY DAVID Administration Aspirin 81 mg 04/08/22 06:00 04/11/22 06:05 Aspirin 81 Mg Ec Tablet PO 81 mg QAM DAVID Administration Atorvastatin Calcium 40 mg 04/08/22 06:00 04/11/22 06:05 Atorvastatin 40 Mg Tablet PO 40 mg QAM DAVID Administration Budesonide 0.5 mg 04/08/22 08:00 04/11/22 07:32 Budesonide 0.5 Mg/2 Ml Neb INHALATION 0.5 mg BID.RESPIRATORY DAVID Administration Carvedilol 3.125 mg 04/08/22 09:00 04/11/22 07:59 Carvedilol 3.125 Mg Tablet PO 3.125 mg BID DAVID Administration Clopidogrel Bisulfate 75 mg 04/08/22 06:00 04/11/22 07:59 Clopidogrel 75 Mg Tablet PO 75 mg QAM DAVID Administration Enoxaparin Sodium 30 mg 04/11/22 08:00 04/11/22 07:59 Enoxaparin 30 Mg/0.3 Ml Syringe SUBCUT 30 mg Q24H DAVID Administration Furosemide 40 mg 04/09/22 16:00 04/11/22 04:01 Furosemide 10 Mg/Ml Sdv 4ml IVP 40 mg Q12H DAVID Administration Guaifenesin 1,200 mg 04/08/22 16:45 04/11/22 07:42 Guaifenesin 600 Mg Tablet PO Not Given BID DAVID Levofloxacin/Dextrose 750 mg in 150 mls @ 100 mls/hr 04/09/22 10:30 04/11/22 10:36 Levaquin-D5w IV 100 mls/hr Q48H DAVID Administration Protocol Fentanyl 1,000 mcg/ Sodium 100 mls @ 0 mls/hr 04/09/22 11:45 04/11/22 06:18 Chloride IV 75 mcg/hr .Q0M DAVID 7.5 mls/hr Titration Protocol Per Protocol Midazolam HCl 100 mg/ Sodium 100 mls @ 0 mls/hr 04/09/22 12:45 04/11/22 02:02 Chloride IV 1 mg/hr .Q0M DAVID 1 mls/hr Titration Protocol Per Protocol Norepinephrine Bitartrate 4 mg 254 mls @ 0 mls/hr 04/09/22 12:45 04/11/22 00:20 / Dextrose IV 4 mcg/min .Q0M DAVID 15.24 mls/hr Titration Protocol Per Protocol Milrinone Lactate/Dextrose 100 mls @ 0 mls/hr 04/10/22 13:15 04/11/22 08:01 Primacor IV 0 mcg/kg/min .Q0M DAVID 0 mls/hr Titration Protocol Per Protocol Insulin Human Lispro 0 unit 04/09/22 13:30 04/11/22 04:48 Insulin Lispro 100 Unit/1 Ml SUBCUT 4 unit Q8H DAVID Administration Protocol Levothyroxine Sodium 75 mcg 04/08/22 06:00 04/11/22 06:05 Levothyroxine 75 Mcg Tablet PO 75 mcg QAM DAVID Administration Methylprednisolone Sodium Succinate 40 mg 04/08/22 17:00 04/11/22 10:36 Methylprednisolone Sod Succ 40 Mg/Ml Inj IVP 40 mg Q6H DAVID Administration Pantoprazole Sodium 40 mg 04/08/22 05:21 04/11/22 04:48 Pantoprazole 40 Mg Sdv IVP 40 mg Q24H DAVID Administration Spironolactone 25 mg 04/08/22 06:00 04/11/22 06:05 Spironolactone 25 Mg Tablet PO 25 mg QAM DAVID Administration PFSH Acute PFSH: Medical History Aortic stenosis Echo 10/01 with mild aortic stenosis, [place] 1.6 cm2, mean gradient 11.6 mmHg, peak velocity 2.4 m/sec CAD (coronary artery disease) Angiogram August 2019 demonstrated EF around 35%, LAD chronic occlusion, first obtuse marginal 60% stenosis, RCA ulcerated 90% stenosis which was stented Chronic kidney disease COPD (chronic obstructive pulmonary disease) Erectile dysfunction HLD (hyperlipidemia) HTN (hypertension) Hypothyroidism Ischemic cardiomyopathy Squamous cell carcinoma skin of arm Tobacco abuse Surgical History AICD (automatic cardioverter/defibrillator) present Pacemaker Medtronic S/P PTCA (percutaneous transluminal coronary angioplasty) August 2019 Family History Brother CAD (coronary artery disease) Social History Smoking and tobacco status: current every day smoker cigarettes Packs smoked per day: 1 Years cigarettes smoked: 50 Alcohol intake: current Alcohol intake frequency: few times a month Vitals/I&O/Wt Last Vital Signs Temp 98.4 F 04/11/22 08:00 Pulse 86 04/11/22 10:00 Resp 24 H 04/11/22 10:14 BP 130/59 04/11/22 10:00 Pulse Ox 97 04/11/22 10:14 O2 Del Method 04/11/22 10:00 O2 Flow Rate 3 04/08/22 12:15 FiO2 30 04/11/22 10:14 04/10/22 04/11/22 04/11/22 22:59 06:59 14:59 Intake Total 235.924 / 358.479 216.578 / 575.057 36.455 / 36.455 Output Total 850 / 850 650 / 1500 Balance -614.076 / -491.521 -433.422 / -924.943 36.455 / 36.455 Physical Exam Narrative: comfortable, awake, alert.Levo @ 4 vent fio2 30%, TV 500, RR 20, PEEP 8 heent- nc/at, eomi, anicteric neck supple lung dull bases heart reg abd soft, nd, nt, + bs ext reace to 1+ edema b/l neuro- a,a, o x 3 Urinary Catheter Management: Ryan: Cath Placed During This Visit: yes Reason for Continuing Indwelling Catheter: Accurate Measurement of Urinary Outpu t in Critically Ill Patients Urinary Catheter Date of Insertion: 04/09/22 Urinary Catheter Time of Insertion: 11:15 Data : 04/11/22 03:39 04/11/22 03:39 Micro: Microbiology 04/09/22 12:15 Gram Stain - Final Sputum - Endotracheal Tube Aspirate Sputum Culture - Preliminary Gram Negative Rods A&P Assessment and plan (1) Acute kidney injury superimposed on CKD: 76 yr old man CHFrEF- 25% w/ ICD and mild , COPD, CKD stage 3 b 1. CKD stage 3b previous urine was normal -check renal us, u/a, u pr and cr -has had intermittent hematuria in the past 2. MARU -send serologies, ua, u pr, cr, renal us -check ck -likely CRS vs ATN 3. PNA - renal dose abx -major question is if septic shock mis contribuiting to hypotension or is all cardiogenic shock 4. Acute on chronic systolic CHF - diuretics per cardiology -if needs cardiac cath- he is at increased risk for CI- MARU -on lasix and aldactone and pressors. 5. anemia- check iron studies, check SPEP/ SIFE 6. hyponatremia from chf and diuretics -check ur na- but after lasix 7. inc AGMA from MARU 8. renal bone mineral metabolism- check vit d, pth, phos seen and examined w/ COOLER SERVICER- Telehealth visit time spent > 50 min Plan as above Consult Attestations Medical Necessity Statement: per medicine Time Spent in Patient Care: Greater than 35 minutes (>than 50% of time spent in counselling and/or direct pt care on unit) . Coding Level of Care Code Acute Search Engine Optimization Manager for Kuldeep Wright Diagnoses Acute kidney injury superimposed on CKD N17.9; N18.9
--- NOTE | 2022-04-11 11:27 | US_ITS ---
WS: [id number] RENAL ULTRASOUND HISTORY: maru COMPARISON: None available. TECHNIQUE: 2-D and color Doppler imaging of the kidney submitted. Right kidney: 9.0 cm x 4.2 cm x 4.3 cm. Low normal size kidney. Mild cortical thinning in the mid to lower kidney. No obstruction or solid ma ss. Left kidney: Not visualized. Large amount of bowel gas shadowing the LEFT renal fossa Aorta: Completely obscured by bowel gas. Urinary Bladder: Nondistended. Ryan catheter is present. US/US renal BI* [id number] IMPRESSION: 1. Low normal size RIGHT kidney with mild cortical thinning mid to lower kidne y. 2. No obstruction. 3. LEFT kidney and aorta are not visualized due to bowel gas.
--- NOTE | 2022-04-11 11:51 | PC.CHAP ---
Pastoral Care Encounter/Spiritual Assessment Type of Contact [] Declined neurodiagnostic technologist visit [] Patient/Family/Request visit [] Outpatient visit [] Follow-up visit [] Physician referral [] Code/Alert [x] Routine visit [] Staff referral [] Actively dying [] Patient sleeping [] Family support [] [] Out of room [] Palliative care [] [] Receiving care in room [] Pre-surgical visit [] Trauma [] Long length of stay [x] ICU visit [] Other: Relational/Emotional Strength [] Patient feels connected with others/family/visitors/staff [] Distress [] Loneliness/isolation [] Abandonment Spirituality of Patient [] Person of Cecy [] Attends Church of their Cecy [] Believes in Prayer [] Reads Bible or Sabianist materials [] There are Spiritual issues to be addressed Check Services Clerk Interventions [x] Prayer [] Active listening [] Non-anxious presence [] Spiritual/emotional support [] Crisis/trauma care [] Spiritual counseling [] Bereavement support [] Provided bereavement packet [] Provided Bible/devotional materials [] Provided toy/stuffed animal, coloring book to patient or family member [] Provided Communion [] Anointing/[place] [] Salvation [x] Completed spiritual assessment [] Other: Impact on Illness or Injury [] Angry [] Fearful [] Anxious [] Often cries [] Exhaustion [] Unable to work [] Unable to attend episcopalian [] Unable to walk/stand [] Unable to read [] Unable to drive [] Unable to eat/drink [] Unable to sleep [] Unable to be with family [] Patient intubated [] Other: Summary Time spent with patient
--- NOTE | 2022-04-11 12:03 | P.PN_ITS ---
Subjective Subjective: He is doing okay in terms of his breathing. Not in pain or discomfort. Discussed with him consideration given oxygenation has improved, continue on 30% FiO2, consideration of extubation, however, discussed also worsening renal function, although has been producing urine. He for now prefers during discussion with him and his at bedside to hold off again until tomorrow to get a better picture of what direction his renal function may take and whether or not he may end up requiring renal replacement therapy. He had transiently weaned off pressor, but again go back on low rate Levophed. Milrinone was discontinued last night due to drop in blood pressure. Vitals/I&O/Wt Last Vital Signs Temp 98.4 F 04/11/22 08:00 Pulse 82 04/11/22 11:52 Resp 20 H 04/11/22 11:54 BP 130/59 04/11/22 10:00 Pulse Ox 97 04/11/22 11:54 O2 Del Method 04/11/22 11:52 O2 Flow Rate 3 04/08/22 12:15 FiO2 30 04/11/22 11:54 04/10/22 04/11/22 04/11/22 22:59 06:59 14:59 Intake Total 235.924 / 358.479 216.578 / 575.057 36.455 / 36.455 Output Total 850 / 850 650 / 1500 Balance -614.076 / -491.521 -433.422 / -924.943 36.455 / 36.455 Physical Exam Narrative: at bedside. Const: COMMON NORMALS: alert GENERAL APPEARANCE: cooperative, comfortable and patient mechanically ventilated ORIENTATION/CONSCIOUSNESS: Yes awake HENMT: COMMON NORMALS: oropharynx normal Resp: COMMON NORMALS: clear to auscultation bilaterally AUSCULTATION: clear to auscultation bilaterally and diminished lung sounds Cardio: COMMON NORMALS: regular rhythm, S1 normal heart sound present, S2 normal heart sound present and No murmurs present (Cardio) RHYTHM: regular rhythm HEART SOUNDS: S1 normal heart sound present and S2 normal heart sound present GI: COMMON NORMALS: Normal to inspection, nondistended, normoactive bowel sounds present, Soft to palpation and non-tender PALPATION: Yes Soft to palpation Extremity: COMMON NORMALS: no joint enlargement and no pedal edema Neuro: COMMON NORMALS: moves all extremities SENSORIUM/ORIENTATION: Yes alert Skin: COMMON NORMALS: no rashes or lesions noted GENERAL SKIN EXAM: no rashes or lesions noted Urinary Catheter Management: Ryan: Cath Placed During This Visit: yes Reason for Continuing Indwelling Catheter: Accurate Measurement of Urinary Output in Critically Ill Patients Urinary Catheter Date of Insertion: 04/09/22 Urinary Catheter Time of Insertion: 11:15 Data : 04/11/22 03:39 04/11/22 03:39 Micro: Microbiology 04/09/22 12:15 Gram Stain - Final Sputum - Endotracheal Tube Aspirate Sputum Culture - Preliminary Gram Negative Rods A&P Assessment and plan (1) Acute respiratory failure with hypoxia: Oxygenation so far remained steady, 30% FiO2. Worsening renal function. Discussed with him consideration of extubation today. He prefers for now to give an additional day, reassess direction his renal function and urine output are heading. We will reassess again in the morning with consideration of extubation. Wean off pressor. Milrinone was stopped last night due to causing worsening hypotension. Sputum culture with gram-negative rods, likely superimposed pneumonia as well. Did not appear to have overt episode of aspiration. Continue Levaquin. Follow-up sputum culture. COVID-19 PCR negative. MRSA PCR negative. May benefit from CPAP with sleep due to CHF, recurrent pulmonary edema, possible sleep apnea. Recurrent intubation in the past secondary to CHF. PPI, VTE prophylaxis. (2) Acute kidney injury superimposed on CKD: Further worsening creatinine today 3, he is producing some urine. Appreciate nephrology consultation. Reassess renal function, potential monitor urine output, which will determine safety after extubation. (3) Congestive heart failure: Appreciate cardiology recommendations. Currently with acute kidney injury. Follow-up renal function. May benefit from additional assessment with a ngiography with improvement of renal function. Diuresis for acute decompensation of systolic congestive heart failure, as above. (4) Hypothyroidism: Qualifiers: Hypothyroidism type: unspecified Qualified Code(s): E03.9 - Hypothyroidism, unspecified (5) Non-ST elevation [place] (NSTEMI): Complete troponin, EKG series. Noted additionally increased, although again with respiratory failure. Limited TTE without significant change, EF 20-25%. Cannot assess R WMA. Continue antiplatelet medications. Possible type II NV. Possible progression of CAD. With recurrent CHF. Would benefit from additional plan as above. (6) Chronic kidney disease: Qualifiers: Chronic kidney disease stage: stage 2 (mild) Qualified Code(s): N18.2 - Chronic kidney disease, stage 2 (mild) (7) Pacemaker: (8) Aortic stenosis: Mild aortic stenosis Qualifiers: Cardiac valve disease etiology: nonrheumatic Qualified Code(s): I35.0 - Nonrheumatic aortic (valve) stenosis (9) CAD (coronary artery disease): Qualifiers: Associated angina: angina presence unspecified Coronary Disease- Associated Artery/Lesion type: [place] artery [place] vs. transplanted heart: [place] heart Qualified Code(s): I25.10 - Atherosclerotic heart disease of [place] coronary artery without angina pectoris (10) HTN (hypertension): Qualifiers: Hypertension type: essential hypertension Qualified Code(s): I10 - Essential (primary) hypertension (11) HLD (hyperlipidemia): Qualifiers: Hyperlipidemia type: unspecified Qualified Code(s): E78.5 - Hyperlipidemia, unspecified (12) Ischemic cardiomyopathy: (13) COPD exacerbation: Plan Hyperglycemia: Add insulin sliding scale. Attestations Medical Necessity Statement*: Continue admission for assessment management of respiratory failure, mechanical ventilatory support in setting of severe cardiomyopathy, recurrent pulmonary edema, currently acute on chronic renal failure. Critical Care Time: The high probability of a clinically significant, sudden or life threatening deterioration of the patient's respiratory, renal system(s) required my full and direct attention, intervention and personal management. The critical care time is as shown. This time is in addition to time spent performing any reported procedures but includes the following: x Data and vital sign review and interpretation x Patient assessment, examination and intervention x Documentation x Medication orders and management Critical Care Time (min): 40 Coding Level of Care Code Acute Utilization Review Specialist for [facility] Fwd Exam Comprehensive Diagnoses Acute respiratory failure with hypoxia J96.01 Acute kidney injury superimposed on CKD N17.9; N18.9 Congestive heart failure I50.9 Hypothyroidism E03.9 Hypothyroidism type: unspecified Non-ST elevation [place] (NSTEMI) I21.4 Chronic kidney disease N18.2 Chronic kidney disease stage: stage 2 (mild) Pacemaker Z95.0 Aortic stenosis I35.0 Cardiac valve disease etiology: nonrheumatic CAD (coronary artery disease) I25.10 Associated angina: angina presence unspecified Coronary Disease-Associated Artery/Lesion type: [place] artery [place] vs. transplanted heart: [place] heart HTN (hypertension) I10 Hypertension type: essential hypertension HLD (hyperlipidemia) E78.5 Hyperlipidemia type: unspecified Ischemic cardiomyopathy I25.5 COPD exacerbation J44.1
--- NOTE | 2022-04-11 12:34 | PM.PN ---
Subjective Subjective: Patient is overall stable. Still intubated. Renal function is worsening. Vitals/I&O/Wt Last Vital Signs Temp 98.4 F 04/11/22 08:00 Pulse 82 04/11/22 11:52 Resp 20 H 04/11/22 11:54 BP 130/59 04/11/22 10:00 Pulse Ox 97 04/11/22 11:54 O2 Del Method 04/11/22 11:52 O2 Flow Rate 3 04/08/22 12:15 FiO2 30 04/11/22 11:54 04/10/22 04/11/22 04/11/22 22:59 06:59 14:59 Intake Total 235.924 / 358.479 216.578 / 575.057 364.128 / 364.128 Output Total 850 / 850 650 / 1500 Balance -614.076 / -491.521 -433.422 / -924.943 364.128 / 364.128 Physical Exam Narrative: GENERAL: Patient is intubated HEENT: No cyanosis. No icterus. No pallor. [] HEART: Regular S1 and S2. No murmur, rub or gallop. [] LUNGS: Diminished breathing sounds ABDOMEN: Soft CENTRAL NERVOUS SYSTEM: Grossly nonfocal. [] EXTREMITIES: Lower extremities with 1+ edema bilaterally. Pulses palpable in the lower extremities, both dorsalis pedis and posterior tibial. [] Urinary Catheter Management: Ryan: Cath Placed During This Visit: yes Reason for Continuing Indwelling Catheter: Accurate Measurement of Urinary Output in Critically Ill Patients Urinary Catheter Date of Insertion: 04/09/22 Urinary Catheter Time of Insertion: 11:15 Data : 04/12/22 02:21 04/12/22 02:21 Micro: Microbiology 04/09/22 12:15 Gram Stain - Final Sputum - Endotracheal Tube Aspirate Sputum Culture - Preliminary Gram Negative Rods A&P Assessment and plan (1) COPD exacerbation: (2) Congestive heart failure: (3) Acute respiratory failure with hypoxia: (4) LV dysfunction: (5) Non-ST elevation [place] (NSTEMI): (6) HTN (hypertension): Qualifiers: Hypertension type: essential hypertension Qualified Code(s): I10 - Essential (primary) hypertension (7) CAD (coronary artery disease): Qualifiers: Coronary Disease-Associated Artery/Lesion type: [place] artery [place] vs. transplanted heart: [place] heart Associated angina: angina presence unspecified Qualified Code(s): I25.10 - Atherosclerotic heart disease of [place] coronary artery without angina pectoris (8) Ischemic cardiomyopathy: Plan Hold diuresis for now. Creatinine has been worsening. Plan for possible extubation tomorrow. Continue cardiac meds We will assess for ischemic work-up once patient is stable and renal function improves Thank you for involving us with care of this patient. We will continue to follow. Please call with questions Attestations Medical Necessity Statement*: Care expected to cross 2 midnights Coding Level of Care Code Acute Gear [employer]ber Set Up Operator for [facility] Fwd Diagnoses COPD exacerbation J44.1 Congestive heart failure I50.9 Acute respiratory failure with hypoxia J96.01 LV dysfunction I51.9 Non-ST elevation [place] (NSTEMI) I21.4 HTN (hypertension) I10 Hypertension type: essential hypertension CAD (coronary artery disease) I25.10 Coronary Disease-Associated Artery/Lesion type: [place] artery [place] vs. transplanted heart: [place] heart Associated angina: angina presence unspecified Ischemic cardiomyopathy I25.5
[2022-04-11 12:35] LABS: Thyroid Stimulating Hormone 0.76 uIU/mL (0.27-4.20)
[2022-04-11 12:44] LABS: Bilirubin Urine Negative (Negative); Blood Urine Large (Negative); Glucose Urine UA Negative (Normal); Ketones Urine Negative (Negative); Leukocyte Esterase Urine Trace (Negative); Nitrate Urine Negative; Protein Urine Negative; Specific Gravity, Urine 1.015 (1.005-1.030); Urine Appearance Cloudy (CLEAR); Urine Color Yellow (Yellow); Urobilinogen Urine 0.2 mg/dL (Negative); pH Urine 5.5 (5-7)
[2022-04-11 12:57] LABS: Amorphous Sediment Urine 2+ /hpf; Bacteria Urine 1+ /hpf; RBC Urine 40-50 /hpf (0-2); Squamous Epithelial Cell Urine 0-4 /hpf (0-5); WBC Urine 0-4 /hpf (0-5)
[2022-04-11 12:58] LABS: Add Urine Culture? Yes; Mucus Urine 1+ /hpf
[2022-04-11 13:01] LABS: Potassium, Radom Urine 31 mmol/L; Urine Protein Random 9 mg/dL
[2022-04-11 13:02] LABS: Urine Random Chloride 14 mmol/L; Urine Random Sodium 10 mmol/L
[2022-04-11 13:32] LABS: Glucose Point of Care 129 mg/dL (70-110)
[2022-04-11 15:19] LABS: Hepatitis C Virus Antibody Non-Reactive (Nonreactive)
[2022-04-11 19:26] LABS: Glucose Point of Care 119 mg/dL (70-110)
[2022-04-12] VITALS (105 sets, daily range): BP systolic 92–134; BP diastolic 43–83; PULSE 62–121; RESP 10–22; TEMP 36.1–36.9; O2SAT 91–99
[2022-04-12] MEDS: ipratropium-albuterol 3 mL Neb INHALATION ×7 (00:19→23:53)
[2022-04-12 02:55] LABS: Hemoglobin 9.2 g/dL (11.7-16.6); Lymphocytes # 0.5 10^3/uL (0.8-4.8); Lymphocytes % 4.7 %; Mean Corpuscular HGB Conc 32.9 g/dL (30.0-36.0); Mean Corpuscular Hemoglobin 30.8 pg (28.0-34.0); Mean Corpuscular Volume 93.6 fl (80-94); Mean Platelet Volume 12.3 fL (7.4-10.4); Monocytes # 0.3 10^3/uL (0.2-0.9); Neutrophils # 9.08 10^3/uL (1.8-7.7); Neutrophils % 91.4 %; Nucleated Red Blood Cells % 0 %; Platelet Count 187 10^3/cmm (130-400); Red Blood Count 2.99 10^6/uL (4.1-5.3); Red Cell Distribution Width 13.9 % (12.1-15.1); White Blood Count 9.9 10^3/uL (4.0-10.0)
[2022-04-12 03:17] LABS: Alanine Aminotransferase 10 U/L (0-41); Albumin Level 3.9 g/dL (3.5-5.2); Alkaline Phosphatase 61 U/L (40-130); Aspartate Amino Transferase 10 U/L (0-40); Blood Urea Nitrogen 79 mg/dL (8-23); Calcium 8.4 mg/dL (8.5-10.5); Carbon Dioxide 23 mmol/L (22-29); Chloride 94 mmol/L (98-107); Globulin 2.2 g/dL (1.3-4.6); Glucose 112 mg/dL (65-115); Magnesium 2.7 mg/dL (1.7-2.3); Osmolality Calculated 296 mOsm/kg (285-295); Phosphorus 6.3 mg/dL (2.5-4.5); Sodium 131 mmol/L (136-145); Total Bilirubin 0.5 mg/dL (0.15-1.2); Total Protein 6.1 g/dL (6.6-8.7)
[2022-04-12 03:21] LABS: Calcium 8.7 mg/dL (8.5-10.5)
[2022-04-12] MEDS: FUROsemide 10 mg/mL SDV 4mL 40 MG IVP (04:16)
[2022-04-12 04:33] LABS: Ferritin 66 ng/mL (30-400); Iron 25 ug/dL (59-158); Percent Saturation 8.4 % (20-50); Total Iron Binding Capacity 296 mcg/dl; Unsaturated Iron Binding 271 ug/dL (112-347)
[2022-04-12 04:39] LABS: Parathyroid Hormone 181.8 pg/mL (15-65)
[2022-04-12 04:49] LABS: 25 Hydroxy Vitamin D 37 ng/mL (30-100)
[2022-04-12] MEDS: atorvastatin 40 mg Tablet PO (05:10)
[2022-04-12] MEDS: pantoprazole 40 mg SDV IVP (05:10)
[2022-04-12] MEDS: spironolactone 25 mg Tablet PO (05:11)
[2022-04-12] MEDS: levothyroxine 75 mcg Tablet PO (05:11)
[2022-04-12] MEDS: clopidogrel 75 mg Tablet PO (05:11)
[2022-04-12] MEDS: aspirin 81 mg EC Tablet PO (05:12)
[2022-04-12] MEDS: guaiFENesin 600 mg Tablet 1200 MG PO ×2 (08:00→17:36)
[2022-04-12] MEDS: enoxaparin 30 mg/0.3 mL Syringe SUBCUT (08:00)
[2022-04-12] MEDS: carvedilol 3.125 mg Tablet PO ×2 (08:00→17:36)
[2022-04-12] MEDS: budesonide 0.5 mg/2 mL Neb INHALATION ×2 (08:09→19:45)
--- NOTE | 2022-04-12 09:16 | PM.PN ---
Subjective Subjective: awake, alert, intubated. interactive. follows commands. states he feels better. Medications: Reviewed: Yes Medication Review Details: Current Medications Acetaminophen (Acetaminophen 325 Mg Tablet) 650 mg PO Q6H PRN PRN Reason: Mild/Mod Pain Or Temp >/= 101 Hydrocodone Bitart/Acetaminophen (Hydrocodone-Acetaminophen 5-325 Mg Tablet) 1 tab PO Q6H PRN PRN Reason: Moderate Pain Albuterol Sulfate (Albuterol 2.5 Mg/0.5 Ml Neb) 2.5 mg INHALATION Q4H.RESPIRATORY PRN PRN Reason: SHORTNESS OF BREATH Albuterol/Ipratropium (Ipratropium-Albuterol 3 Ml Neb) 3 ml INHALATION Q4H.RESPIRATORY [facility] Last Admin: 04/12/22 08:09 Dose: 3 ml Aspirin (Aspirin 81 Mg Ec Tablet) 81 mg PO QAM [facility] Last Admin: 04/12/22 05:12 Dose: 81 mg Atorvastatin Calcium (Atorvastatin 40 Mg Tablet) 40 mg PO QAM [facility] Last Admin: 04/12/22 05:10 Dose: 40 mg Budesonide (Budesonide 0.5 Mg/2 Ml Neb) 0.5 mg INHALATION BID.RESPIRATORY [facility] Last Admin: 04/12/22 08:09 Dose: 0.5 mg Carvedilol (Carvedilol 3.125 Mg Tablet) 3.125 mg PO BID [facility] Last Admin: 04/12/22 08:00 Dose: 3.125 mg Clopidogrel Bisulfate (Clopidogrel 75 Mg Tablet) 75 mg PO QAM [facility] Last Admin: 04/12/22 05:11 Dose: 75 mg Dextrose (Dextrose 50% Syringe 50 Ml) 25 ml IVP ONCE PRN; Protocol PRN Reason: hypoglycemia protocol Dextrose (Dextrose 50% Syringe 50 Ml) 50 ml IVP PRN PRN; Protocol PRN Reason: hypoglycemia protocol Enoxaparin Sodium (Enoxaparin 30 Mg/0.3 Ml Syringe) 30 mg SUBCUT Q24H [facility] Last Admin: 04/12/22 08:00 Dose: 30 mg Furosemide (Furosemide 10 Mg/Ml Sdv 4ml) 40 mg IVP Q24H [facility] Last Admin: 04/12/22 04:16 Dose: 40 mg Glucagon (Glucagon 1 Mg/Ml Inj 1 Ml) 1 mg IM ONCE PRN; Protocol PRN Reason: Adult Acute Hypoglycemia Prot. Guaifenesin (Guaifenesin 600 Mg Tablet) 1,200 mg PO BID [facility] Last Admin: 04/12/22 08:00 Dose: 1,200 mg Levofloxacin/Dextrose (Levaquin-D5w) 750 mg in 150 mls @ 100 mls/hr IV Q48H [facility]; Protocol Last Infusion: 04/11/22 12:31 Dose: Infused Fentanyl 1,000 mcg/ Sodium (Chloride) 100 mls @ 0 mls/hr IV .Q0M [facility]; Protocol Last Titration: 04/12/22 06:24 Dose: 50 mcg/hr, 5 mls/hr Midazolam HCl 100 mg/ Sodium (Chloride) 100 mls @ 0 mls/hr IV .Q0M [facility]; Protocol Last Titration: 04/12/22 06:06 Dose: 1 mg/hr, 1 mls/hr Norepinephrine Bitartrate 4 mg (/ Dextrose) 254 mls @ 0 mls/hr IV .Q0M [facility]; Protocol Last Titration: 04/11/22 15:35 Dose: Infused Dextrose (D5w) 500 mls @ 100 mls/hr IV ONCE PRN; Protocol PRN Reason: Adult Acute Hypoglycemia Prot Milrinone Lactate/Dextrose (Primacor) 100 mls @ 0 mls/hr IV .Q0M [facility]; Protocol Last Titration: 04/11/22 08:01 Dose: 0 mcg/kg/min, 0 mls/hr Insulin Human Lispro (Insulin Lispro 100 Unit/1 Ml) 0 unit SUBCUT Q8H [facility]; Protocol Last Admin: 04/12/22 04:41 Dose: Not Given Levothyroxine Sodium (Levothyroxine 75 Mcg Tablet) 75 mcg PO QAM [facility] Last Admin: 04/12/22 05:11 Dose: 75 mcg Methylprednisolone Sodium Succinate (Methylprednisolone Sod Succ 40 Mg/Ml Inj) 40 mg IVP Q6H [facility] Last Admin: 04/12/22 04:16 Dose: 40 mg Ondansetron HCl (Ondansetron 2 Mg/Ml Sdv 2 Ml) 4 mg IVP Q8H PRN PRN Reason: vomiting, or N/V if npo Pantoprazole Sodium (Pantoprazole 40 Mg Sdv) 40 mg IVP Q24H [facility] Last Admin: 04/12/22 05:10 Dose: 40 mg Spironolactone (Spironolactone 25 Mg Tablet) [facility] [place] Last Admin: 04/12/22 05:11 Dose: 25 mg Vitals/I&O/Wt Last Vital Signs Temp 97.0 F L 04/12/22 08:00 Pulse 73 04/12/22 08:15 Resp 20 H 04/12/22 08:12 BP 120/64 04/12/22 08:15 Pulse Ox 95 04/12/22 08:15 O2 Del Method 04/12/22 08:00 O2 Flow Rate 3 04/08/22 12:15 FiO2 30 04/12/22 08:12 04/11/22 04/12/22 04/12/22 22:59 06:59 14:59 Intake Total 49.875 / 479.128 108.342 / 587.470 Output Total 495 / 695 325 / 1020 Balance -445.125 / -215.872 -216.658 / -432.530 Weight last 48 hrs Weight 68.719 kg Physical Exam Narrative: comfortable, awake, alert. vent fio2 30%, TV 500, PEEP 8 heent- nc/at, eomi, anicteric neck supple lungs improved. some basal crackles heart reg, paced rhythm abd soft, nd, nt, + bs ext minimal edema b/l neuro- a,a, interactive Urinary Catheter Management: Ryan: Cath Placed During This Visit: yes Reason for Continuing Indwelling Catheter: Acute Urinary Retention or Obstruction Urinary Catheter Date of Insertion: 04/09/22 Urinary Catheter Time of Insertion: 11:15 Data : 04/12/22 02:21 04/12/22 02:21 Micro: Microbiology 04/09/22 12:15 Gram Stain - Final Sputum - Endotracheal Tube Aspirate Sputum Culture - Preliminary Gram Negative Rods A&P Assessment and plan (1) Acute kidney injury superimposed on CKD: 76 yr old man CHFrEF- 25% w/ ICD and mild , COPD, CKD stage 3 b 1. CKD stage 3b previous urine was normal - renal us = rt 9 cm, left not visualized- due to gas pattern., u/a, u pr and cr -has had intermittent hematuria in the past 2. LICO - urinalysis large blood, 40-50 rbc -await serologies - u pr 9, -check ck -likely CRS vs overdiuresis -monitor uop and chemistries 3. PNA - renal dose abx -major question is if septic shock mis contribuiting to hypotension or is all cardiogenic shock 4. Acute on chronic systolic CHF - diuretics per cardiology -if needs cardiac cath- he is at increased risk for CI- LICO -on lasix and aldactone and pressors. -uric acid 10 from diuretics and lico- start allopurinol 100 mg d 5. anemia- iron sat = 8.4, ferritin 66- evaluate for BIB -start ferrlecit -hgb down to 9.2 check SPEP/ SIFE 6. hyponatremia -na stable at 131 -low ur na- even after lasix- Q if from CHF and low CO or from overdiuresis- hold lasix 7. inc AGMA from LICO 8. renal bone mineral metabolism- phos 6.3- monitor, may need a binder normal vit d, - pth 182- recheck in 4 weeks- may need a vit d analouge seen and examined w/ BIOMEDICAL ENGINEERING PROFESSOR- Telehealth visit time spent 30 min Plan as above Attestations Medical Necessity Statement*: lico, vdrf, chf Time Spent in Patient Care: 16 - 35 minutes (>than 50% of time spent in counselling and/or direct pt care on unit). Coding Level of Care Code Acute Director Of Solutions Architecture for [facility] Diagnoses Acute kidney injury superimposed on CKD N17.9; N18.9
[2022-04-12 09:59] LABS: Creatine Phosphokinase 63 U/L (39-308)
--- NOTE | 2022-04-12 10:07 | PC.CHAP ---
Pastoral Care Encounter/Spiritual Assessment Type of Contact [] Declined enterprise application administrator visit [] Patient/Family/Request visit [] Outpatient visit [] Follow-up visit [] Physician referral [] Code/Alert [x] Routine visit [] Staff referral [] Actively dying [x] Patient sleeping [] Family support [] [] Out of room [] Palliative care [] [] Receiving care in room [] Pre-surgical visit [] Trauma [] Long length of stay [x] ICU visit [] Other: Relational/Emotional Strength [] Patient feels connected with others/family/visitors/staff [] Distress [] Loneliness/isolation [] Abandonment Spirituality of Patient [] Person of Cecy [] Attends Quaker of their Cecy [] Believes in Prayer [] Reads Bible or Adventist materials [] There are Spiritual issues to be addressed Produce Specialist Interventions [x] Prayer [] Active listening [] Non-anxious presence [] Spiritual/emotional support [] Crisis/trauma care [] Spiritual counseling [] Bereavement support [] Provided bereavement packet [] Provided Bible/devotional materials [] Provided toy/stuffed animal, coloring book to patient or family member [] Provided Communion [] Anointing/[place] [] Salvation [x] Completed spiritual assessment [] Other: Impact on Illness or Injury [] Angry [] Fearful [] Anxious [] Often cries [] Exhaustion [] Unable to work [] Unable to attend cheondoism [] Unable to walk/stand [] Unable to read [] Unable to drive [] Unable to eat/drink [] Unable to sleep [] Unable to be with family [] Patient intubated [] Other: Summary Time spent with patient
[2022-04-12] MEDS: allopurinol 100 mg Tablet PO (10:10)
--- NOTE | 2022-04-12 12:41 | P.PN_ITS ---
Subjective Subjective: This morning he states he is doing okay. Breathing currently comfortable. Not in pain or discomfort. Discussed with him additionally some worsening of creatinine level, although has been decreasing urine. Discussed consideration of extubation, and he would like to proceed if possible. We will do weaning trial. Needs to wean down sedation further. Vitals/I&O/Wt Last Vital Signs Temp 97.0 F L 04/12/22 08:00 Pulse 68 04/12/22 11:01 Resp 10 L 04/12/22 11:02 BP 98/48 04/12/22 11:00 Pulse Ox 98 04/12/22 11:02 O2 Del Method 04/12/22 11:01 O2 Flow Rate 3 04/08/22 12:15 FiO2 30 04/12/22 11:02 04/11/22 04/12/22 04/12/22 22:59 06:59 14:59 Intake Total 49.875 / 479.128 108.342 / 587.470 5 / 5 Output Total 495 / 695 325 / 1020 Balance -445.125 / -215.872 -216.658 / -432.530 5 / 5 Weight last 48 hrs Weight 68.719 kg Physical Exam Const: GENERAL APPEARANCE: cooperative, comfortable, anxious and patient mechanically ventilated ORIENTATION/CONSCIOUSNESS: Yes awake HENMT: COMMON NORMALS: oropharynx normal Resp: COMMON NORMALS: clear to auscultation bilaterally EFFORT & INSPECTION: No able to speak in complete sentences and Yes tachypneic AUSCULTATION: clear to auscultation bilaterally, crackles and diminished lung sounds Cardio: COMMON NORMALS: regular rhythm, S1 normal heart sound present, S2 normal heart sound present and No murmurs present (Cardio) RHYTHM: regular rhythm HEART SOUNDS: S1 normal heart sound present and S2 normal heart sound present GI: COMMON NORMALS: Normal to inspection, nondistended, normoactive bowel sounds present, Soft to palpation and non-tender PALPATION: Yes Soft to palpation Extremity: COMMON NORMALS: no joint enlargement and no pedal edema Neuro: COMMON NORMALS: moves all extremities Skin: COMMON NORMALS: no rashes or lesions noted GENERAL SKIN EXAM: no rashes or lesions noted Urinary Catheter Management: Ryan: Cath Placed During This Visit: yes Reason for Continuing Indwelling Catheter: Acute Urinary Retention or Obstruction Urinary Catheter Date of Insertion: 04/09/22 Urinary Catheter Time of Insertion: 11:15 Data : 04/12/22 02:21 04/12/22 02:21 Micro: Microbiology 04/09/22 12:15 Gram Stain - Final Sputum - Endotracheal Tube Aspirate Sputum Culture - Preliminary Gram Negative Rods A&P Assessment and plan (1) Acute respiratory failure with hypoxia: Wean down sedation, breathing trial. Possible extubation to CPAP. Monitor renal function, urine output. Off pressor. Milrinone was stopped last night due to causing worsening hypotension. Sputum culture with gram-negative rods, likely superimposed pneumonia as well. Did not appear to have overt episode of aspiration. Continue Levaquin. Follow-up sputum culture. COVID-19 PCR negative. MRSA PCR negative. May benefit from CPAP with sleep due to CHF, recurrent pulmonary edema, possible sleep apnea. Recurrent intubation in the past secondary to CHF. PPI, VTE prophylaxis. (2) Acute kidney injury superimposed on CKD: Further worsening creatinine today 3.2, he is producing some urine. Appreciate nephrology consultation. Diuretics held for now. Reassess renal function, potential monitor urine output. (3) Congestive heart failure: Appreciate cardiology recommendations. Currently with acute kidney injury. Follow-up renal function. May benefit from additional assessment with angiography with improvement of renal function. Diuresis for acute decompensation of systolic congestive heart failure, as above. (4) Hypothyroidism: Qualifiers: Hypothyroidism type: unspecified Qualified Code(s): E03.9 - Hypothyroidism, unspecified (5) Non-ST elevation [place] (NSTEMI): Complete troponin, EKG series. Noted additionally increased, although again with respiratory failure. Limited TTE without significant change, EF 20-25%. Cannot assess R WMA. Continue antiplatelet medications. Possible type II MA. Possible progression of CAD. With recurrent CHF. Would benefit from additional plan as above. (6) Chronic kidney disease: Qualifiers: Chronic kidney disease stage: stage 2 (mild) Qualified Code(s): N18.2 - Chronic kidney disease, stage 2 (mild) (7) Pacemaker: (8) Aortic stenosis: Mild aortic stenosis Qualifiers: Cardiac valve disease etiology: nonrheumatic Qualified Code(s): I35.0 - Nonrheumatic aortic (valve) stenosis (9) CAD (coronary artery disease): Qualifiers: Coronary Disease-Associated Artery/Lesion type: [place] artery [place] vs. transplanted heart: [place] heart Associated angina: angina presence unspecified Qualified Code(s): I25.10 - Atherosclerotic heart disease of [place] coronary artery without angina pectoris (10) HTN (hypertension): Qualifiers: Hypertension type: essential hypertension Qualified Code(s): I10 - Ess ential (primary) hypertension (11) HLD (hyperlipidemia): Qualifiers: Hyperlipidemia type: unspecified Qualified Code(s): E78.5 - Hyperlipidemia, unspecified (12) Ischemic cardiomyopathy: (13) COPD exacerbation: Plan Hyperglycemia: insulin sliding scale. Attestations Medical Necessity Statement*: Continue admission for weaning of mechanical ventilatory support with recurrent respiratory failure with pulmonary edema, severe cardiomyopathy, low EF, acute on chronic renal failure. Critical Care Time: The high probability of a clinically significant, sudden or life threatening deterioration of the patient's respiratory, cardiac, renal system(s) required my full and direct attention, intervention and personal management. The critical care time is as shown. This time is in addition to time spent performing any reported procedures but includes the following: x Data and vital sign review and interpretation x Patient assessment, examination and intervention x Documentation x Medication orders and management Critical Care Time (min): 35 Coding Level of Care Code Acute General Repairer for [facility] Fwd Diagnoses Acute respiratory failure with hypoxia J96.01 Acute kidney injury superimposed on CKD N17.9; N18.9 Congestive heart failure I50.9 Hypothyroidism E03.9 Hypothyroidism type: unspecified Non-ST elevation [place] (NSTEMI) I21.4 Chronic kidney disease N18.2 Chronic kidney disease stage: stage 2 (mild) Pacemaker Z95.0 Aortic stenosis I35.0 Cardiac valve disease etiology: nonrheumatic CAD (coronary artery disease) I25.10 Coronary Disease-Associated Artery/Lesion type: [place] artery [place] vs. transplanted heart: [place] heart Associated angina: angina presence unspecified HTN (hypertension) I10 Hypertension type: essential hypertension HLD (hyperlipidemia) E78.5 Hyperlipidemia type: unspecified Ischemic cardiomyopathy I25.5 COPD exacerbation J44.1
[2022-04-12 14:01] LABS: Urine Creatinine 66 mg/dL (39-259)
[2022-04-12 14:15] LABS: Creatinine 24 Hour Urine 1072.5 mg/dL (955-2936); Total Volume Urine 1625 ml
[2022-04-12 14:19] LABS: Glucose Point of Care 115 mg/dL (70-110)
[2022-04-12 16:14] LABS: Anti-Nuclear Antibody Screen NEGATIVE (NEGATIVE)
[2022-04-12 16:43] LABS: Anti-Double Strand DNA AB <1 IU/mL
--- NOTE | 2022-04-12 17:03 | P.PN_ITS ---
Subjective Subjective: Patient is stable. Plan for extubation Vitals/I&O/Wt Last Vital Signs Temp 97.0 F L 04/12/22 08:00 Pulse 89 04/12/22 16:00 Resp 16 04/12/22 15:00 BP 118/60 04/12/22 16:00 Pulse Ox 95 04/12/22 15:45 O2 Del Method 04/12/22 15:00 O2 Flow Rate 3 04/08/22 12:15 FiO2 30 04/12/22 15:00 04/12/22 04/12/22 04/12/22 06:59 14:59 22:59 Intake Total 108.342 / 587.470 39.208 / 39.208 Output Total 325 / 1020 500 / 500 Balance -216.658 / -432.530 39.208 / 39.208 -500 / -460.792 Weight last 48 hrs Weight 151 lb 8 oz Physical Exam Narrative: GENERAL: Patient is intubated HEENT: No cyanosis. No icterus. No pallor. [] HEART: Regular S1 and S2. No murmur, rub or gallop. [] LUNGS: Diminished breathing sounds ABDOMEN: Soft CENTRAL NERVOUS SYSTEM: Grossly nonfocal. [] EXTREMITIES: Lower extremities with 1+ edema bilaterally. Pulses palpable in the lower extremities, both dorsalis pedis and posterior tibial. [] Urinary Catheter Management: Ryan: Cath Placed During This Visit: yes Reason for Continuing Indwelling Catheter: Acute Urinary Retention or Obstruction Urinary Catheter Date of Insertion: 04/09/22 Urinary Catheter Time of Insertion: 11:15 Data : 04/14/22 04:50 04/14/22 04:50 A&P Assessment and plan (1) COPD exacerbation: (2) Congestive heart failure: (3) Acute respiratory failure with hypoxia: (4) LV dysfunction: (5) Non-ST elevation [place] (NSTEMI): (6) HTN (hypertension): Qualifiers: Hypertension type: essential hypertension Qualified Code(s): I10 - Essential (primary) hypertension (7) CAD (coronary artery disease): Qualifiers: Coronary Disease-Associated Artery/Lesion type: [place] artery [place] vs. transplanted heart: [place] heart Associated angina: angina presence unspecified Qualified Code(s): I25.10 - Atherosclerotic heart disease of [place] coronary artery without angina pectoris (8) Ischemic cardiomyopathy: Plan Keep holding diuretics. Plan for extubation later. Milrinone was stopped because of hypotension. Continue cardiac meds We will assess for ischemic work-up once patient is stable and renal function improves Thank you for involving us with care of this patient. We will continue to follow. Please call with questions Attestations Medical Necessity Statement*: Care expected to cross 2 midnights. Coding Level of Care Code Acute Supervisor [employer]ing [employer] for [employer] Fwd Diagnoses COPD exacerbation J44.1 Congestive heart failure I50.9 Acute respiratory failure with hypoxia J96.01 LV dysfunction I51.9 Non-ST elevation [place] (NSTEMI) I21.4 HTN (hypertension) I10 Hypertension type: essential hypertension CAD (coronary artery disease) I25.10 Coronary Disease-Associated Artery/Lesion type: [place] artery [place] vs. transplanted heart: [place] heart Associated angina: angina presence unspecified Ischemic cardiomyopathy I25.5
[2022-04-12 18:40] LABS: Urine Total Protein 5.7 mg/dL (0-150)
[2022-04-12 18:41] LABS: Total Volume, Urine 1625 mL; Urine Total Protein 24 Hour 92.6 mg/24hr (0-150)
[2022-04-12] MEDS: ondansetron 2 mg/ML SDV 2 mL 4 MG IVP (19:48)
[2022-04-12 20:50] LABS: Glucose Point of Care 105 mg/dL (70-110)
[2022-04-12] MEDS: HYDROcodone-acetaminophen 5-325 mg Tablet 1 TAB PO (22:41)
--- NOTE | 2022-04-12 23:17 | PC.NURSE ---
Soft wrist restraints were not in place at the start of this shift, and have not been re-applied. Pt is off all sedation, alert and oriented, and acting appropriately.
[2022-04-13] VITALS (95 sets, daily range): BP systolic 81–138; BP diastolic 38–75; PULSE 60–118; RESP 11–28; TEMP 36.4–36.6; O2SAT 85–99; BMI 20.5
[2022-04-13] MEDS: famotidine 20 mg/2 mL INJ IVP (01:00)
[2022-04-13 02:23] LABS: PROTEIN, TOTAL 6.6 g/dL (6.1-8.1)
[2022-04-13] MEDS: ipratropium-albuterol 3 mL Neb INHALATION ×6 (03:32→23:51)
[2022-04-13 03:57] LABS: Hematocrit 29.3 % (42.0-52.0); Hemoglobin 9.4 g/dL (11.7-16.6); Lymphocytes # 0.5 10^3/uL (0.8-4.8); Lymphocytes % 4.2 %; Mean Corpuscular HGB Conc 32.1 g/dL (30.0-36.0); Mean Corpuscular Hemoglobin 29.9 pg (28.0-34.0); Mean Corpuscular Volume 93.3 fl (80-94); Mean Platelet Volume 12.5 fL (7.4-10.4); Monocytes # 0.4 10^3/uL (0.2-0.9); Monocytes % 3.8 %; Neutrophils # 10.47 10^3/uL (1.8-7.7); Neutrophils % 91.3 %; Nucleated Red Blood Cells % 0 %; Platelet Count 208 10^3/cmm (130-400); Red Blood Count 3.14 10^6/uL (4.1-5.3); White Blood Count 11.5 10^3/uL (4.0-10.0)
[2022-04-13 04:18] LABS: Alanine Aminotransferase 9 U/L (0-41); Albumin Level 3.7 g/dL (3.5-5.2); Alkaline Phosphatase 59 U/L (40-130); Aspartate Amino Transferase 14 U/L (0-40); Calcium 8.8 mg/dL (8.5-10.5); Carbon Dioxide 23 mmol/L (22-29); Chloride 98 mmol/L (98-107); Globulin 2.7 g/dL (1.3-4.6); Glucose 114 mg/dL (65-115); Magnesium 3.2 mg/dL (1.7-2.3); Osmolality Calculated 312 mOsm/kg (285-295); Phosphorus 6.6 mg/dL (2.5-4.5); Sodium 135 mmol/L (136-145); Total Bilirubin 0.4 mg/dL (0.15-1.2); Total Protein 6.4 g/dL (6.6-8.7)
[2022-04-13 04:26] LABS: Blood Urea Nitrogen 99 mg/dL (8-23)
[2022-04-13] MEDS: pantoprazole 40 mg SDV IVP (04:37)
[2022-04-13] MEDS: levothyroxine 75 mcg Tablet PO (05:36)
[2022-04-13] MEDS: aspirin 81 mg EC Tablet PO (05:36)
[2022-04-13] MEDS: clopidogrel 75 mg Tablet PO (05:36)
[2022-04-13] MEDS: atorvastatin 40 mg Tablet PO (05:36)
[2022-04-13] MEDS: budesonide 0.5 mg/2 mL Neb INHALATION ×2 (08:13→20:13)
[2022-04-13] MEDS: carvedilol 3.125 mg Tablet PO ×2 (08:20→17:49)
[2022-04-13] MEDS: guaiFENesin 600 mg Tablet 1200 MG PO ×2 (08:20→17:40)
[2022-04-13] MEDS: allopurinol 100 mg Tablet PO (08:20)
[2022-04-13] MEDS: enoxaparin 30 mg/0.3 mL Syringe SUBCUT (08:20)
--- NOTE | 2022-04-13 09:24 | PM.PN ---
Subjective Subjective: awake, undergoing a vent weaning trial. he states that he feels well. no n/v/f/filippo/d Medications: Reviewed: Yes Medication Review Details: Current Medications Acetaminophen (Acetaminophen 325 Mg Tablet) 650 mg PO Q6H PRN PRN Reason: Mild/Mod Pain Or Temp >/= 101 Hydrocodone Bitart/Acetaminophen (Hydrocodone-Acetaminophen 5-325 Mg Tablet) 1 tab PO Q6H PRN PRN Reason: Moderate Pain Last Admin: 04/12/22 22:41 Dose: 1 tab Albuterol Sulfate (Albuterol 2.5 Mg/0.5 Ml Neb) 2.5 mg INHALATION Q4H.RESPIRATORY PRN PRN Reason: SHORTNESS OF BREATH Albuterol/Ipratropium (Ipratropium-Albuterol 3 Ml Neb) 3 ml INHALATION Q4H.RESPIRATORY DAVID Last Admin: 04/13/22 08:13 Dose: 3 ml Allopurinol (Allopurinol 100 Mg Tablet) 100 mg PO DAILY [facility] Last Admin: 04/13/22 08:20 Dose: 100 mg Aspirin (Aspirin 81 Mg Ec Tablet) 81 mg PO QAM [facility] Last Admin: 04/13/22 05:36 Dose: 81 mg Atorvastatin Calcium (Atorvastatin 40 Mg Tablet) 40 mg PO QAM [facility] Last Admin: 04/13/22 05:36 Dose: 40 mg Budesonide (Budesonide 0.5 Mg/2 Ml Neb) 0.5 mg INHALATION BID.RESPIRATORY DAVID Last Admin: 04/13/22 08:13 Dose: 0.5 mg Carvedilol (Carvedilol 3.125 Mg Tablet) 3.125 mg PO BID [facility] Last Admin: 04/13/22 08:20 Dose: 3.125 mg Clopidogrel Bisulfate (Clopidogrel 75 Mg Tablet) 75 mg PO QAM [facility] Last Admin: 04/13/22 05:36 Dose: 75 mg Dextrose (Dextrose 50% Syringe 50 Ml) 25 ml IVP ONCE PRN; Protocol PRN Reason: hypoglycemia protocol Dextrose (Dextrose 50% Syringe 50 Ml) 50 ml IVP PRN PRN; Protocol PRN Reason: hypoglycemia protocol Enoxaparin Sodium (Enoxaparin 30 Mg/0.3 Ml Syringe) 30 mg SUBCUT Q24H [facility] Last Admin: 04/13/22 08:20 Dose: 30 mg Glucagon (Glucagon 1 Mg/Ml Inj 1 Ml) 1 mg IM ONCE PRN; Protocol PRN Reason: Adult Acute Hypoglycemia Prot. Guaifenesin (Guaifenesin 600 Mg Tablet) 1,200 mg PO BID [facility] Last Admin: 04/13/22 08:20 Dose: 1,200 mg Levofloxacin/Dextrose (Levaquin-D5w) 750 mg in 150 mls @ 100 mls/hr IV Q48H [facility]; Protocol Last Infusion: 04/11/22 12:31 Dose: Infused Norepinephrine Bitartrate 4 mg (/ Dextrose) 254 mls @ 0 mls/hr IV .Q0M DAVID; Protocol Last Titration: 04/11/22 15:35 Dose: Infused Dextrose (D5w) 500 mls @ 100 mls/hr IV ONCE PRN; Protocol PRN Reason: Adult Acute Hypoglycemia Prot Insulin Human Lispro (Insulin Lispro 100 Unit/1 Ml) 0 unit SUBCUT Q8H [facility]; Protocol Last Admin: 04/13/22 04:39 Dose: Not Given Levothyroxine Sodium (Levothyroxine 75 Mcg Tablet) 75 mcg PO QAM [facility] Last Admin: 04/13/22 05:36 Dose: 75 mcg Methylprednisolone Sodium Succinate (Methylprednisolone Sod Succ 40 Mg/Ml Inj) 40 mg IVP Q6H [facility] Last Admin: 04/13/22 04:37 Dose: 40 mg Midazolam HCl (Midazolam 1 Mg/Ml Inj 2 Ml) 0.5 mg IVP Q2H PRN PRN Reason: ANXIETY Ondansetron HCl (Ondansetron 2 Mg/Ml Sdv 2 Ml) 4 mg IVP Q8H PRN PRN Reason: vomiting, or N/V if npo Last Admin: 04/12/22 19:48 Dose: 4 mg Pantoprazole Sodium (Pantoprazole 40 Mg Sdv) 40 mg IVP Q24H [facility] Last Admin: 04/13/22 04:37 Dose: 40 mg Vitals/I&O/Wt Last Vital Signs Temp 97.7 F 04/13/22 04:00 Pulse 102 H 04/13/22 08:30 Resp 21 H 04/13/22 09:07 BP 126/69 04/13/22 08:30 Pulse Ox 98 04/13/22 09:07 O2 Del Method 04/13/22 08:15 O2 Flow Rate 3 04/08/22 12:15 FiO2 30 04/13/22 09:07 04/12/22 04/13/22 04/13/22 22:59 06:59 14:59 Output Total 500 / 500 1100 / 1600 Balance -500 / -460.792 -1100 / -1560.792 Weight last 48 hrs Weight 68.719 kg Weight 68.719 kg Physical Exam Narrative: comfortable, awake, alert. vent fio2 30%, PS heent- nc/at, eomi, anicteric neck supple lungs -good air moement b/l heart reg, paced rhythm abd soft, nd, nt, + bs ext minimal edema b/l neuro- a,a, interactive Urinary Catheter Management: Ryan: Cath Placed During This Visit: yes Reason for Continuing Indwelling Catheter: Accurate Measurement of Urinary Output in Critically Ill Patients Urinary Catheter Date of Insertion: 04/09/22 Urinary Catheter Time of Insertion: 11:15 Data : 04/13/22 02:20 04/13/22 02:20 Micro: Microbiology 04/11/22 12:25 Urine Culture - Final Urine,Clean Catch A&P Assessment and plan (1) Acute kidney injury superimposed on CKD: 76 yr old man CHFrEF- 25% w/ ICD and mild , COPD, CKD stage 3 b 1. CKD stage 3b previous urine was normal - renal us = rt 9 cm, left not visualized- due to gas pattern., u/a, u pr and cr -has had intermittent hematuria in the past 2. LICO - urinalysis large blood, 40-50 rbc -await serologies - u pr 9, -ck 63 -likely CRS vs overdiuresis -monitor uop and chemistries -high bun. cr improving. IF OKAY W/ PULMONARY GIVE FLUIDS -high bun can be from steroids -immunology tests are pending 3. PNA - renal dose abx 4. Acute on chronic systolic CHF - diuretics per cardiology -if needs cardiac cath- he is at increased risk for CI- LICO -improving -uric acid 10 from diuretics and lico- start allopurinol 100 mg d 5. anemia- iron sat = 8.4, ferritin 66- evaluate for BIB -start ferrlecit -hgb down to 9.2 check SPEP/ SIFE 6. hyponatremia -na improved to 135 -low ur na- even after lasix- Q if from CHF and low CO or from overdiuresis- hold lasix 7. inc AGMA from LICO-improved 8. renal bone mineral metabolism- phos 6.3- monitor, may need a binder normal vit d, - pth 182- recheck in 4 weeks- may need a vit d analouge seen and examined w/ PRIMARY CARE SALES REPRESENTATIVE- Telehealth visit time spent 30 min Plan as above Attestations Medical Necessity Statement*: on vent, lico, chf Time Spent in Patient Care: 16 - 35 minutes (>than 50% of time spent in counselling and/or direct pt care on unit). 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
[2022-04-13] MEDS: levofloxacin-dextrose 5 % 750 MG/150 ML PREMIX 100 MG IV (11:14)
--- NOTE | 2022-04-13 11:52 | PC.SOCIAL ---
IMM Updated Updated pt & on IMM. No questions voiced. Provided pt a copy. Initialed, dated, & timed copy in chart.
[2022-04-13 11:54] LABS: Anti-streptolysin O 54 IU/mL (<200)
[2022-04-13 14:23] LABS: Glucose Point of Care 115 mg/dL (70-110)
--- NOTE | 2022-04-13 16:51 | P.PN_ITS ---
Subjective Subjective: He is doing okay this morning. Denies chest pain or pressure. He has been having some episodes of apnea, some brief runs noted rarely even while he is awake. Discussed with him and family. Vitals/I&O/Wt Last Vital Signs Temp 97.7 F 04/13/22 04:00 Pulse 63 04/13/22 16:00 Resp 28 H 04/13/22 15:27 BP 102/53 04/13/22 16:00 Pulse Ox 99 04/13/22 16:00 O2 Del Method 04/13/22 15:27 O2 Flow Rate 3 04/13/22 11:22 FiO2 30 04/13/22 10:25 04/13/22 04/13/22 04/13/22 06:59 14:59 22:59 Intake Total 390 / 390 Output Total 1100 / 1600 Balance -1100 / -1560.792 390 / 390 Weight last 48 hrs Weight 68.719 kg Weight 68.719 kg Physical Exam Narrative: Family at bedside. Const: COMMON NORMALS: alert GENERAL APPEARANCE: cooperative, comfortable, anxious and patient mechanically ventilated ORIENTATION/CONSCIOUSNESS: Yes awake HENMT: COMMON NORMALS: oropharynx normal Resp: EFFORT & INSPECTION: No able to speak in complete sentences and Yes tachypneic AUSCULTATION: wheezes (Mild) Cardio: COMMON NORMALS: regular rhythm, S1 normal heart sound present, S2 normal heart sound present and No murmurs present (Cardio) RHYTHM: regular rhythm HEART SOUNDS: S1 normal heart sound present and S2 normal heart sound present GI: COMMON NORMALS: Normal to inspection, nondistended, normoactive bowel sounds present, Soft to palpation and non-tender PALPATION: Yes Soft to palpation Extremity: COMMON NORMALS: no joint enlargement and no pedal edema Neuro: COMMON NORMALS: moves all extremities SENSORIUM/ORIENTATION: Yes alert Skin: COMMON NORMALS: no rashes or lesions noted GENERAL SKIN EXAM: no rashes or lesions noted Urinary Catheter Management: Ryan: Cath Placed During This Visit: yes Reason for Continuing Indwelling Catheter: Accurate Measurement of Urinary Output in Critically Ill Patients Urinary Catheter Date of Insertion: 04/09/22 Urinary Catheter Time of Insertion: 11:15 Data : 04/13/22 02:20 04/13/22 02:20 Micro: Microbiology 04/11/22 12:25 Urine Culture - Final Urine,Clean Catch A&P Assessment and plan (1) Acute respiratory failure with hypoxia: Did well with weaning of sedation, breathing trial, extubated. Noted some episodes of apnea, some brief runs even while awake. Avoid hyperoxi a, target saturation 88-92%. Will benefit from sleep study. Continue Levaquin, continue IV steroids for now and change given still having mild wheezing. Monitor renal function, urine output. Off pressor. Milrinone was stopped last night due to causing worsening hypotension. Diuretics for now de-escalated to reassess renal function recovery. Sputum culture with gram-negative rods, likely superimposed pneumonia as well. Did not appear to have overt episode of aspiration. Also growing Bordetella bronchiseptica. I am not sure whether he has a pet. Continue Levaquin. Follow-up sputum culture. COVID-19 PCR negative. MRSA PCR negative. May benefit from CPAP with sleep due to CHF, recurrent pulmonary edema, possible sleep apnea. Recurrent intubation in the past secondary to CHF. PPI, VTE prophylaxis. (2) Acute kidney injury superimposed on CKD: Creatinine with mild improvement today, 2.6, but BUN further increased to 99. Diuretics on hold. Appreciate nephrology consultation. Reassess renal function, potential monitor urine output. (3) Congestive heart failure: Appreciate cardiology recommendations. Currently with acute kidney injury. Follow-up renal function. May benefit from additional assessment with angiography with improvement of renal function. Continue to reassess renal function. Diuresis for acute decompensation of systolic congestive heart failure, as above. (4) Hypothyroidism: Qualifiers: Hypothyroidism type: unspecified Qualified Code(s): E03.9 - Hypothyroidism, unspecified (5) Non-ST elevation [place] (NSTEMI): Complete troponin, EKG series. Noted additionally increased, although again with respiratory failure. Limited TTE without significant change, EF 20-25%. Cannot assess R WMA. Continue antiplatelet medications. Possible type II DC. Possible progression of CAD. With recurrent CHF. Would benefit from additional plan as above. (6) Chronic kidney disease: Qualifiers: Chronic kidney disease stage: stage 2 (mild) Qualified Code(s): N18.2 - Chronic kidney disease, stage 2 (mild) (7) Pacemaker: (8) Aortic stenosis: Mild aortic stenosis Qualifiers: Cardiac valve disease etiology: nonrheumatic Qualified Code(s): I35.0 - Nonrheumatic aortic (valve) stenosis (9) CAD (coronary artery disease): Qualifiers: Coronary Disease-Associated Artery/Lesion type: [place] artery [place] vs. transplanted heart: [place] heart Associated angina: angina presence unspecified Qualified Code(s): I25.10 - Atherosclerotic heart disease of [place] coronary artery without angina pectoris (10) HTN (hypertension): Qualifiers: Hypertension type: essential hypertension Qualified Code(s): I10 - Essential (primary) hypertension (11) HLD (hyperlipidemia): Qualifiers: Hyperlipidemia type: unspecified Qualified Code(s): E78.5 - Hyperlipidemia, unspecified (12) Ischemic cardiomyopathy: (13) COPD exacerbation: Plan Hyperglycemia: insulin sliding scale. Attestations Medical Necessity Statement*: Continue admission for assessment management of respiratory failure, pneumonia, underlying CHF with recurrent CHF exacerbation, pulmonary edema, pending additional cardiac assessment, currently also with LICO on CKD. Coding Level of Care Code Acute Benefits Specialist Recruiter for [facility] Fwd Diagnoses Acute respiratory failure with hypoxia J96.01 Acute kidney injury superimposed on CKD N17.9; N18.9 Congestive heart failure I50.9 Hypothyroidism E03.9 Hypothyroidism type: unspecified Non-ST elevation [place] (NSTEMI) I21.4 Chronic kidney disease N18.2 Chronic kidney disease stage: stage 2 (mild) Pacemaker Z95.0 Aortic stenosis I35.0 Cardiac valve disease etiology: nonrheumatic CAD (coronary artery disease) I25.10 Coronary Disease-Associated Artery/Lesion type: [place] artery [place] vs. transplanted heart: [place] heart Associated angina: angina presence unspecified HTN (hypertension) I10 Hypertension type: essential hypertension HLD (hyperlipidemia) E78.5 Hyperlipidemia type: unspecified Ischemic cardiomyopathy I25.5 COPD exacerbation J44.1
[2022-04-13 18:38] LABS: CREATININE, 24 HOUR URINE 1.01 g/24 h (0.50-2.15); PROTEIN, TOTAL, 24 HR UR 179 mg/24 h (<150); Protein/Creatinine Ratio 0.177 (<0.100); Protein/Creatinine Ratio 177 mg/g creat (<100)
[2022-04-13 20:27] LABS: Glucose Point of Care 127 mg/dL (70-110)
[2022-04-13] MEDS: famotidine 20 mg Tablet PO ×2 (20:31→23:06)
[2022-04-14] VITALS (103 sets, daily range): BP systolic 89–145; BP diastolic 34–87; PULSE 54–112; RESP 12–30; TEMP 36.3–36.7; O2SAT 84–100
[2022-04-14] MEDS: ipratropium-albuterol 3 mL Neb INHALATION ×6 (03:29→23:07)
[2022-04-14] MEDS: atorvastatin 40 mg Tablet PO (05:17)
[2022-04-14] MEDS: levothyroxine 75 mcg Tablet PO (05:17)
[2022-04-14] MEDS: pantoprazole 40 mg SDV IVP (05:17)
[2022-04-14] MEDS: aspirin 81 mg EC Tablet PO (05:17)
[2022-04-14] MEDS: clopidogrel 75 mg Tablet PO (05:17)
[2022-04-14 05:38] LABS: Basophils % 0.1 %; Hematocrit 30.3 % (42.0-52.0); Hemoglobin 9.8 g/dL (11.7-16.6); Lymphocytes # 0.5 10^3/uL (0.8-4.8); Lymphocytes % 4.2 %; Mean Corpuscular HGB Conc 32.3 g/dL (30.0-36.0); Mean Corpuscular Hemoglobin 30.8 pg (28.0-34.0); Mean Corpuscular Volume 95.3 fl (80-94); Mean Platelet Volume 12.3 fL (7.4-10.4); Monocytes # 0.4 10^3/uL (0.2-0.9); Monocytes % 3.7 %; Neutrophils # 10.06 10^3/uL (1.8-7.7); Neutrophils % 91.2 %; Nucleated Red Blood Cells % 0 %; Platelet Count 204 10^3/cmm (130-400); Red Blood Count 3.18 10^6/uL (4.1-5.3); Red Cell Distribution Width 13.9 % (12.1-15.1)
[2022-04-14 06:07] LABS: Alanine Aminotransferase 10 U/L (0-41); Albumin Level 3.7 g/dL (3.5-5.2); Alkaline Phosphatase 56 U/L (40-130); Anion Gap 14.7 (5-19); Aspartate Amino Transferase 16 U/L (0-40); Calcium 8.8 mg/dL (8.5-10.5); Carbon Dioxide 23 mmol/L (22-29); Chloride 102 mmol/L (98-107); Globulin 2.4 g/dL (1.3-4.6); Glucose 119 mg/dL (65-115); Magnesium 3.4 mg/dL (1.7-2.3); Osmolality Calculated 313 mOsm/kg (285-295); Phosphorus 5.8 mg/dL (2.5-4.5); Potassium 4.7 mmol/L (3.5-5.1); Sodium 135 mmol/L (136-145); Total Bilirubin 0.4 mg/dL (0.15-1.2); Total Protein 6.1 g/dL (6.6-8.7)
[2022-04-14 06:09] LABS: Blood Urea Nitrogen 103 mg/dL (8-23)
--- NOTE | 2022-04-14 06:39 | P.PN_ITS ---
Subjective Subjective: feels well. extubated. no n/v/f/c/hoffmann/d. still weak. Medications: Reviewed: Yes Medication Review Details: Current Medications Acetaminophen (Acetaminophen 325 Mg Tablet) 650 mg PO Q6H PRN PRN Reason: Mild/Mod Pain Or Temp >/= 101 Hydrocodone Bitart/Acetaminophen (Hydrocodone-Acetaminophen 5-325 Mg Tablet) 1 tab PO Q6H PRN PRN Reason: Moderate Pain Last Admin: 04/12/22 22:41 Dose: 1 tab Albuterol Sulfate (Albuterol 2.5 Mg/0.5 Ml Neb) 2.5 mg INHALATION Q4H.RESPIRATORY PRN PRN Reason: SHORTNESS OF BREATH Albuterol/Ipratropium (Ipratropium-Albuterol 3 Ml Neb) 3 ml INHALATION Q4H.RESPIRATORY [facility] Last Admin: 04/14/22 03:29 Dose: 3 ml Allopurinol (Allopurinol 100 Mg Tablet) 100 mg PO DAILY [facility] Last Admin: 04/13/22 08:20 Dose: 100 mg Aspirin (Aspirin 81 Mg Ec Tablet) 81 mg PO QAM [facility] Last Admin: 04/14/22 05:17 Dose: 81 mg Atorvastatin Calcium (Atorvastatin 40 Mg Tablet) 40 mg PO QAM [facility] Last Admin: 04/14/22 05:17 Dose: 40 mg Budesonide (Budesonide 0.5 Mg/2 Ml Neb) 0.5 mg INHALATION BID.RESPIRATORY [facility] Last Admin: 04/13/22 20:13 Dose: 0.5 mg Carvedilol (Carvedilol 3.125 Mg Tablet) 3.125 mg PO BID [facility] Last Admin: 04/13/22 17:49 Dose: 3.125 mg Clopidogrel Bisulfate (Clopidogrel 75 Mg Tablet) 75 mg PO QAM [facility] Last Admin: 04/14/22 05:17 Dose: 75 mg Dextrose (Dextrose 50% Syringe 50 Ml) 25 ml IVP ONCE PRN; Protocol PRN Reason: hypoglycemia protocol Dextrose (Dextrose 50% Syringe 50 Ml) 50 ml IVP PRN PRN; Protocol PRN Reason: hypoglycemia protocol Enoxaparin Sodium (Enoxaparin 30 Mg/0.3 Ml Syringe) 30 mg SUBCUT Q24H [facility] Last Admin: 04/13/22 08:20 Dose: 30 mg Famotidine (Famotidine 20 Mg Tablet) 20 mg PO BID [facility] Last Admin: 04/13/22 23:06 Dose: 20 mg Glucagon (Glucagon 1 Mg/Ml Inj 1 Ml) 1 mg IM ONCE PRN; Protocol PRN Reason: Adult Acute Hypoglycemia Prot. Guaifenesin (Guaifenesin 600 Mg Tablet) 1,200 mg PO BID [facility] Last Admin: 04/13/22 17:40 Dose: 1,200 mg Levofloxacin/Dextrose (Levaquin-D5w) 750 mg in 150 mls @ 100 mls/hr IV Q48H [facility]; Protocol Last Infusion: 04/13/22 12:44 Dose: Infused Norepinephrine Bitartrate 4 mg (/ Dextrose) 254 mls @ 0 mls/hr IV .Q0M [facility]; Protocol Last Titration: 04/11/22 15:35 Dose: Infused Dextrose (D5w) 500 mls @ 100 mls/hr IV ONCE PRN; Protocol PRN Reason: Adult Acute Hypoglycemia Prot Insulin Human Lispro (Insulin Lispro 100 Unit/1 Ml) 0 unit SUBCUT Q8H [facility]; Protocol Last Admin: 04/14/22 06:14 Dose: Not Given Levothyroxine Sodium (Levothyroxine 75 Mcg Tablet) 75 mcg PO QAM [facility] Last Admin: 04/14/22 05:17 Dose: 75 mcg Methylprednisolone Sodium Succinate (Methylprednisolone Sod Succ 40 Mg/Ml Inj) 40 mg IVP Q6H [facility] Last Admin: 04/14/22 05:17 Dose: 40 mg Midazolam HCl (Midazolam 1 Mg/Ml Inj 2 Ml) 0.5 mg IVP Q2H PRN PRN Reason: ANXIETY Ondansetron HCl (Ondansetron 2 Mg/Ml Sdv 2 Ml) 4 mg IVP Q8H PRN PRN Reason: vomiting, or N/V if npo Last Admin: 04/12/22 19:48 Dose: 4 mg Pantoprazole Sodium (Pantoprazole 40 Mg Sdv) 40 mg IVP Q24H [facility] Last Admin: 04/14/22 05:17 Dose: 40 mg Vitals/I&O/Wt Last Vital Signs Temp 97.5 F L 04/14/22 05:42 Pulse 65 04/14/22 05:39 Resp 18 04/14/22 03:30 BP 112/62 04/13/22 18:00 Pulse Ox 99 04/14/22 03:30 O2 Del Method 04/14/22 03:30 O2 Flow Rate 4 04/14/22 03:30 FiO2 30 04/13/22 10:25 04/13/22 04/13/22 04/14/22 14:59 22:59 06:59 Intake Total 390 / 390 100 / 490 200 / 690 Output Total 800 / 800 1470 / 2270 Balance 390 / 390 -700 / -310 -1270 / -1580 Weight last 48 hrs Weight 66.905 kg Weight 68.719 kg Physical Exam Narrative: comfortable,used bipap overnight now on heent- nc/at, eomi, anicteric neck supple lungs -good air moement b/l heart reg, paced rhythm abd soft, nd, nt, + bs ext no leg edema b/l neuro- a,a, o x 3, FROM x 4 Urinary Catheter Management: Ryan: Cath Placed During This Visit: yes Reason for Continuing Indwelling Catheter: Accurate Measurement of Urinary Output in Critically Ill Patients Urinary Catheter Date of Insertion: 04/09/22 Urinary Catheter Time of Insertion: 11:15 Data : 04/14/22 04:50 04/14/22 04:50 Micro: Microbiology 04/09/22 12:15 Gram Stain - Final Sputum - Endotracheal Tube Aspirate Sputum Culture - Preliminary Bordetella bronchiseptica Gram Negative Rods 04/11/22 12:25 Urine Culture - Final Urine,Clean Catch A&P Assessment and plan (1) Acute kidney injury superimposed on CKD: 76 yr old man CHFrEF- 25% w/ ICD and mild , COPD, CKD stage 3 b 1. CKD stage 3b previous urine was normal - renal us = rt 9 cm, left not visualized- due to gas pattern., u/a, u pr and cr -has had intermittent hematuria in the past 2. LICO - urinalysis large blood, 40-50 rbc -await serologies, jhoan negative - u pr 9, -ck 63 -likely CRS vs overdiuresis -monitor uop and chemistries -high bun. cr improving. recommend fluids by mouth. If BUN continues to rise then IF OKAY W/ PULMONARY GIVE FLUIDS -high bun can be from steroids -immunology tests are pending 3. PNA - renal dose abx 4. Acute on chronic systolic CHF - diuretics per cardiology -if needs cardiac cath- he is at increased risk for CI- LICO -improved clinically -uric acid 10 from diuretics and lico- start allopurinol 100 mg d 5. anemia- iron sat = 8.4, ferritin 66- evaluate for BIB -start ferrlecit -hgb down to 9.2 check SPEP/ SIFE 6. hyponatremia -na improved to 135 -low ur na- even after lasix- Q if from CHF and low CO or from overdiuresis- hold lasix 7. inc AGMA from LICO-improved 8. renal bone mineral metabolism- phos improved to 5.8 normal vit d, - pth 182- recheck in 4 weeks- may need a vit d analouge seen and examined w/ TUFTER [employer]- Telehealth visit time spent 30 min Plan as above Attestations Medical Necessity Statement*: lico, chf, weakness Time Spent in Patient Care: 16 - 35 minutes (>than 50% of time spent in counselling and/or direct pt care on unit) . Coding Level of Care Code Acute Electronic Commerce Specialist for Kuldeep Wright Diagnoses Acute kidney injury superimposed on CKD N17.9; N18.9
--- NOTE | 2022-04-14 07:18 | XRR_ITS ---
PROCEDURE INFORMATION: Exam: XR Chest Exam date and time: 04/14/2022 7:24 AM Age: 76 years old Clinical indication: Shortness of breath; Prior surgery; Additional info: SOB TECHNIQUE: Imaging protocol: Radiologic exam of the chest. Views: 1 view. COMPARISON: CR XR chest 1V portable [id number] 04/10/2022 4:31 AM FINDINGS: Tubes, catheters and devices: Cardiac device noted overlying the left chest. Interval removal of endotracheal and enteric tubes. Lungs: Minimal possible Marisel B lines noted. Mild central ground-glass density. No significant airspace consolidation concerning for pneumonia. Pleural spaces: No pneumothorax. No pleural effusion. Heart/Mediastinum: The cardiomediastinal silhouette is within normal limits. Bones/joints: Unremarkable. XR/XR chest 1V portable [id number] IMPRESSION: Trace pulmonary edema.
--- NOTE | 2022-04-14 07:41 | PC.NURSE ---
Patient noted to be SOB, and coughing frequently. Mr. Delgado told this nurse, I feel very congested in my chest. I keep coughing but can't get anything up. I need something to calm me down, I'm feeling very anxious. Patient O2 stating at 84% and lungs sound wheezy throughout, this nurse placed patient on cpap and called Dr. Garcia. Verbal orders given to give 1mg IVP of versed and to obtain a stat chest x-ray.
[2022-04-14] MEDS: midazolam 1 mg/mL INJ 2 mL IVP (07:48)
[2022-04-14] MEDS: budesonide 0.5 mg/2 mL Neb INHALATION ×2 (08:28→20:31)
[2022-04-14] MEDS: guaiFENesin 600 mg Tablet 1200 MG PO ×2 (08:30→17:42)
[2022-04-14] MEDS: carvedilol 3.125 mg Tablet PO ×2 (08:30→17:42)
[2022-04-14] MEDS: piperacillin-tazobactam 3.375 GM in sodium chloride 0.9% (plus) 50 ML IV ×2 (08:30→20:30)
[2022-04-14] MEDS: allopurinol 100 mg Tablet PO (08:30)
[2022-04-14] MEDS: famotidine 20 mg Tablet PO ×2 (08:30→17:42)
[2022-04-14] MEDS: enoxaparin 30 mg/0.3 mL Syringe SUBCUT (08:41)
[2022-04-14] MEDS: midazolam 1 mg/mL INJ 2 mL 0.5 MG IVP (10:02)
[2022-04-14] MEDS: FUROsemide 10 mg/mL SDV 4mL 40 MG IVP (10:17)
--- NOTE | 2022-04-14 10:27 | ECG_ITS ---
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 Measurements Intervals [place] Rate: 62 P: -64 NC: 196 QRS: -66 QRSD: 182 T: 109 QT: 440 QTc: 450 Interpretive Statements ELECTRONIC VENTRICULAR PACEMAKER Compared to ECG 04/09/2022 15:51:50 No significant changes Electronically Signed On 04-14-2022 22:00:46 CDT by Jhonathan Jara M.D. [email or web address]
--- NOTE | 2022-04-14 10:47 | PC.NURSE ---
Patient continues to be SOB on CPAP and coughing up thick rust colored sputum, pt states I need more pressure, I feel I can't breath. I need something. Respiratory notified. Patient placed on BiPAP, see settings and vitals as documented. This nurse called Dr. Garcia and updated on patient increase need of oxygen demand and increased anxiety. Orders placed for IVP Lasix, and a EKG for the short runs of bradycardia, see EKG as documented.
[2022-04-14 12:23] LABS: Glucose Point of Care 129 mg/dL (70-110)
--- NOTE | 2022-04-14 14:06 | PM.PN ---
Subjective Subjective: This morning again respiratory distress, hypoxia, saturation down to 84%, started initially CPAP, and transition to BiPAP due to lack of improvement. Chest x-ray obtained, some faint infiltrates, trace pulmonary edema. Due to respiratory stress and given a dose of 40 mg IV Lasix. With cultures growing Bordetella bronchus septic a, gram-negative rods, broadened coverage with Zosyn. Given a dose of Versed due to anxiety. On revisit during the subsequent he is feeling better, working well with BiPAP. Vitals/I&O/Wt Last Vital Signs Temp 97.3 F L 04/14/22 08:00 Pulse 67 04/14/22 14:00 Resp 17 04/14/22 14:00 BP 110/56 04/14/22 14:00 Pulse Ox 99 04/14/22 14:00 O2 Del Method 04/14/22 11:19 O2 Flow Rate 4 04/14/22 08:28 FiO2 36 04/14/22 11:19 04/13/22 04/14/22 04/14/22 22:59 06:59 14:59 Intake Total 100 / 490 200 / 690 50 / 50 Output Total 800 / 800 1470 / 2270 Balance -700 / -310 -1270 / -1580 50 / 50 Weight last 48 hrs Weight 66.905 kg Weight 68.719 kg Physical Exam Narrative: Family at bedside. Const: COMMON NORMALS: patient oriented x3 and alert GENERAL APPEARANCE: cooperative, comfortable, anxious and patient mechanically ventilated ORIENTATION/CONSCIOUSNESS: Yes awake HENMT: COMMON NORMALS: oropharynx normal Resp: COMMON NORMALS: clear to auscultation bilaterally EFFORT & INSPECTION: No able to speak in complete sentences and Yes tachypneic AUSCULTATION: clear to auscultation bilaterally, crackles, wheezes (Mild) and diminished lung sounds Cardio: COMMON NORMALS: regular rhythm, S1 normal heart sound present, S2 normal heart sound present and No murmurs present (Cardio) RHYTHM: regular rhythm HEART SOUNDS: S1 normal heart sound present and S2 normal heart sound present GI: COMMON NORMALS: Normal to inspection, nondistended, normoactive bowel sounds present, Soft to palpation and non-tender PALPATION: Yes Soft to palpation Extremity: COMMON NORMALS: no joint enlargement and no pedal edema Neuro: COMMON NORMALS: patient oriented x3 and moves all extremities SENSORIUM/ORIENTATION: Yes alert Skin: COMMON NORMALS: no rashes or lesions noted GENERAL SKIN EXAM: no rashes or lesions noted Urinary Catheter Management: Ryan: Cath Placed During This Visit: yes Reason for Continuing Indwelling Catheter: Accurate Measurement of Urinary Output in Critically Ill Patients Urinary Catheter Date of Insertion: 04/09/22 Urinary Catheter Time of Insertion: 11:15 Data : 04/14/22 04:50 04/14/22 04:50 Micro: Microbiology 04/09/22 12:15 Gram Stain - Final Sputum - Endotracheal Tube Aspirate Sputum Culture - Preliminary Bordetella bronchiseptica Gram Negative Rods A&P Assessment and plan (1) Acute respiratory failure with hypoxia: Additional episode of respiratory distress this morning. Hypoxia, down to 84%. Started on CPAP, then BiPAP. Chest x-ray with pulmonary edema, given dose of 40 mg IV Lasix. Received Versed for anxiety. Antibiotic broadened with addition of Zosyn. Discussed with him and his family additional concerns. Discussed infection with Bordetella bronchiseptica which is more commonly infectious in pets, dogs. He does have dogs at home. His states he is going to get him assessed at the vet. Discussed with him may be safer for him to avoid pets, it appears that he may be susceptible to infection given his chronic lung disease, CHF. Discussed additional concern for possible paradoxical vocal cord dysfunction given recurrent episodes of respiratory distress which are usually followed by worsening pulmonary edema. Certainly it may be secondary to CHF and his low EF, however, with increased work of breathing his family do feel that he is working against a smaller airway during those times, and will does get quite anxious as well. This certainly may contribute to propagation of pulm edema with increased intrathoracic negative pressure. ENT not available today, please request for consultation once available tomorrow or early next week. Speech therapy as well for after he is out of acute episode for laryngeal control for help with chronic management. Around extubation time noted some episodes of apnea, some brief runs even while awake. Avoid hyperoxia, target saturation 88-92%. Will benefit from sleep study. Continue Levaquin, continue IV steroids for now and change given still having mild wheezing. Monitor renal function, urine output. Off pressor. Milrinone was stopped last night due to causing worsening hypotension. Diuretics for now de-escalated to reassess renal function recovery. Follow-up sputum culture. COVID-19 PCR negative. MRSA PCR negative. May benefit from CPAP with sleep due to CHF, recurrent pulmonary edema, possible sleep apnea. Recurrent intubation in the past secondary to CHF. PPI, VTE prophylaxis. (2) Acute kidney injury superimposed on CKD: Creatinine with mild improvement today, 2.6, but BUN further increased to 103. Diuretics were on hold, but had to be given additional dose of Lasix 40 mg IV x1 today due to respiratory distress, pulmonary edema recurrence despite CPAP. Check Hemoccult. Appreciate nephrology consultation. Reassess renal function, potential monitor urine output. (3) Congestive heart failure: Appreciate cardiology recommendations. Currently with acute kidney injury. Follow-up renal function. May benefit from additional assessment with angiography with improvement of renal function. Continue to reassess renal function. Diuresis for acute decompensation of systolic congestive heart failure, as above. (4) Hypothyroidism: Qualifiers: Hypothyroidism type: unspecified Qualified Code(s): E03.9 - Hypothyroidism, unspecified (5) Non-ST elevation RI (NSTEMI): Complete troponin, EKG series. Noted additionally increased, although again with respiratory failure. Limited TTE without significant change, EF 20-25%. Cannot assess R WMA. Continue antiplatelet medications. Possible type II RI. Possible progression of CAD. With recurrent CHF. Would benefit from additional plan as above. (6) Chronic kidney disease: Qualifiers: Chronic kidney disease stage: stage 2 (mild) Qualified Code(s): N18.2 - Chronic kidney disease, stage 2 (mild) (7) Pacemaker: (8) Aortic stenosis: Mild aortic stenosis Qualifiers: Cardiac valve disease etiology: nonrheumatic Qualified Code(s): I35.0 - Nonrheumatic aortic (valve) stenosis (9) CAD (coronary artery disease): Qualifiers: Coronary Disease-Associated Artery/Lesion type: [place] artery [place] vs. transplanted heart: [place] heart Associated angina: angina presence unspecified Qualified Code(s): I25.10 - Atherosclerotic heart disease of [place] coronary artery without angina pectoris (10) HTN (hypertension): Qualifiers: Hypertension type: essential hypertension Qualified Code(s): I10 - Essential (primary) hypertension (11) HLD (hyperlipidemia): Qualifiers: Hyperlipidemia type: unspecified Qualified Code(s): E78.5 - Hyperlipidemia, unspecified (12) Ischemic cardiomyopathy: (13) COPD exacerbation: Antibiotics broadened as above. Continue IV steroid, breathing treatments. BiPAP support as needed. Follow-up sputum culture. Plan Hyperglycemia: insulin sliding scale. Attestations Medical Necessity Statement*: Continue admission for assessment of management of pneumonia, recurrent pulmonary edema, CHF decompensation, COPD exacerbation. LICO. Critical Care Time: The high probability of a clinically significant, sudden or life threatening deterioration of the patient's respiratory, cardiac system(s) required my full and direct attention, intervention and personal management. The critical care time is as shown. This time is in addition to time spent performing any reported procedures but includes the following: x Data and vital sign review and interpretation x Patient assessment, examination and intervention x Documentation x Medication orders and management Critical Care Time (min): 40 Coding Level of Care Code Acute Subsea Engineer for Kuldeep Fwd Diagnoses Acute respiratory failure with hypoxia J96.01 Acute kidney injury superimposed on CKD N17.9; N18.9 Congestive heart failure I50.9 Hypothyroidism E03.9 Hypothyroidism type: unspecified Non-ST elevation RI (NSTEMI) I21.4 Chronic kidney disease N18.2 Chronic kidney disease stage: stage 2 (mild) Pacemaker Z95.0 Aortic stenosis I35.0 Cardiac valve disease etiology: nonrheumatic CAD (coronary artery disease) I25.10 Coronary Disease-Associated Artery/Lesion type: [place] artery [place] vs. transplanted heart: [place] heart Associated angina: angina presence unspecified HTN (hypertension) I10 Hypertension type: essential hypertension HLD (hyperlipidemia) E78.5 Hyperlipidemia type: unspecified Ischemic cardiomyopathy I25.5 COPD exacerbation J44.1
--- NOTE | 2022-04-14 14:45 | PC.NURSE ---
Patient states he is feeling a lot better but was scared early in the morning when he was having trouble breathing. Patient currently laying in bed on 5L NC and eating some snacks- pudding, jello, applesauce while watching tv. Patient denies pain at this time.
[2022-04-14 17:03] LABS: Glucose Point of Care 247 mg/dL (70-110)
[2022-04-14] MEDS: benzonatate 100 mg Capsule 200 MG PO (17:43)
--- NOTE | 2022-04-14 20:39 | PM.PN ---
Subjective Subjective: Patient is feeling better. No chest pain Vitals/I&O/Wt Last Vital Signs Temp 98.1 F 04/14/22 19:00 Pulse 62 04/14/22 20:31 Resp 14 04/14/22 20:31 BP 114/49 04/14/22 20:30 Pulse Ox 99 04/14/22 20:31 O2 Del Method 04/14/22 20:31 O2 Flow Rate 4 04/14/22 08:28 FiO2 28 04/14/22 20:31 04/14/22 04/14/22 04/14/22 06:59 14:59 22:59 Intake Total 200 / 690 50 / 50 480 / 530 Output Total 1470 / 2270 1775 / 1775 Balance -1270 / -1580 50 / 50 -1295 / -1245 Weight last 48 hrs Weight 147 lb 8 oz Weight 151 lb 8 oz Physical Exam Narrative: GENERAL: Patient is alert and oriented HEENT: No cyanosis. No icterus. No pallor. [] HEART: Regular S1 and S2. No murmur, rub or gallop. [] LUNGS: Diminished breathing sounds ABDOMEN: Soft CENTRAL NERVOUS SYSTEM: Grossly nonfocal. [] EXTREMITIES: Lower extremities with 1+ edema bilaterally. Pulses palpable in the lower extremities, both dorsalis pedis and posterior tibial. [] Urinary Catheter Management: Ryan: Cath Placed During This Visit: yes Reason for Continuing Indwelling Catheter: Accurate Measurement of Urinary Output in Critically Ill Patients Urinary Catheter Date of Insertion: 04/09/22 Urinary Catheter Time of Insertion: 11:15 Data : 04/16/22 03:26 04/16/22 03:26 Micro: Microbiology 04/09/22 12:15 Gram Stain - Final Sputum - Endotracheal Tube Aspirate Sputum Culture - Preliminary Bordetella bronchiseptica Gram Negative Rods A&P Assessment and plan (1) COPD exacerbation: (2) Congestive heart failure: (3) Acute respiratory failure with hypoxia: (4) LV dysfunction: (5) Non-ST elevation MA (NSTEMI): (6) HTN (hypertension): Qualifiers: Hypertension type: essential hypertension Qualified Code(s): I10 - Essential (primary) hypertension (7) CAD (coronary artery disease): Qualifiers: Coronary Disease-Associated Artery/Lesion type: [place] artery [place] vs. transplanted heart: [place] heart Associated angina: angina presence unspecified Qualified Code(s): I25.10 - Atherosclerotic heart disease of [place] coronary artery without angina pectoris (8) Ischemic cardiomyopathy: Plan Patient is overall feeling better. Creatinine Is improving. BUN still elevated. Patient will need ischemic workup prior to discharge. Given renal dysfunction, can consider stress test. Thank you for involving us with care of this patient. We will continue to follow. Please call with questions Attestations Medical Necessity Statement*: Care expected to cross 2 midnights. 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 transplanted heart: [place] heart Associated angina: angina presence unspecified Ischemic cardiomyopathy I25.5
[2022-04-14 20:50] LABS: Glucose Point of Care 137 mg/dL (70-110)
[2022-04-15] VITALS (103 sets, daily range): BP systolic 90–128; BP diastolic 39–75; PULSE 60–82; RESP 11–32; TEMP 36.1–36.9; O2SAT 85–100
--- NOTE | 2022-04-15 00:15 | PC.NURSE ---
0000 Patient call light answered and requested to remove Bipap temporarily. Patient was placed on 5l Nasal cannula and given suction to help clear secretions. Patient states I feel loose stuff that I think I can cough up . Patient's Sp02 remains 98% on NC. Instructions were given to alert the nurse when patient is ready to return to Bipap.
[2022-04-15 03:14] LABS: Basophils % 0.1 %; Hematocrit 30.8 % (42.0-52.0); Hemoglobin 9.9 g/dL (11.7-16.6); Lymphocytes # 0.6 10^3/uL (0.8-4.8); Lymphocytes % 6.2 %; Mean Corpuscular HGB Conc 32.1 g/dL (30.0-36.0); Mean Corpuscular Hemoglobin 30.2 pg (28.0-34.0); Mean Corpuscular Volume 93.9 fl (80-94); Monocytes # 0.3 10^3/uL (0.2-0.9); Monocytes % 3.8 %; Neutrophils # 7.86 10^3/uL (1.8-7.7); Neutrophils % 88.9 %; Nucleated Red Blood Cells % 0 %; Platelet Count 209 10^3/cmm (130-400); Red Blood Count 3.28 10^6/uL (4.1-5.3); Red Cell Distribution Width 13.8 % (12.1-15.1); White Blood Count 8.9 10^3/uL (4.0-10.0)
[2022-04-15] MEDS: ipratropium-albuterol 3 mL Neb INHALATION ×5 (03:25→23:06)
[2022-04-15 03:33] LABS: Alanine Aminotransferase 9 U/L (0-41); Albumin Level 3.4 g/dL (3.5-5.2); Alkaline Phosphatase 53 U/L (40-130); Anion Gap 15.3 (5-19); Aspartate Amino Transferase 14 U/L (0-40); Calcium 8.5 mg/dL (8.5-10.5); Carbon Dioxide 23 mmol/L (22-29); Chloride 102 mmol/L (98-107); Globulin 2.4 g/dL (1.3-4.6); Glucose 119 mg/dL (65-115); Magnesium 3.3 mg/dL (1.7-2.3); Osmolality Calculated 314 mOsm/kg (285-295); Phosphorus 5.7 mg/dL (2.5-4.5); Potassium 4.3 mmol/L (3.5-5.1); Sodium 136 mmol/L (136-145); Total Bilirubin 0.5 mg/dL (0.15-1.2); Total Protein 5.8 g/dL (6.6-8.7)
[2022-04-15 03:49] LABS: Blood Urea Nitrogen 100 mg/dL (8-23)
[2022-04-15 04:50] LABS: Glucose Point of Care 121 mg/dL (70-110)
[2022-04-15] MEDS: pantoprazole 40 mg SDV IVP (04:53)
[2022-04-15] MEDS: clopidogrel 75 mg Tablet PO (05:06)
[2022-04-15] MEDS: atorvastatin 40 mg Tablet PO (05:06)
[2022-04-15] MEDS: aspirin 81 mg EC Tablet PO (05:06)
[2022-04-15] MEDS: levothyroxine 75 mcg Tablet PO (05:06)
--- NOTE | 2022-04-15 07:49 | P.PN_ITS ---
Subjective Subjective: pt feels better. no n/v/f/c/hoffmann/d. is breathing comfortable. eating well. no n/v/f/c/hoffmann/d Medications: Reviewed: Yes Medication Review Details: Current Medications Acetaminophen (Acetaminophen 325 Mg Tablet) 650 mg PO Q6H PRN PRN Reason: Mild/Mod Pain Or Temp >/= 101 Hydrocodone Bitart/Acetaminophen (Hydrocodone-Acetaminophen 5-325 Mg Tablet) 1 tab PO Q6H PRN PRN Reason: Moderate Pain Last Admin: 04/12/22 22:41 Dose: 1 tab Albuterol Sulfate (Albuterol 2.5 Mg/0.5 Ml Neb) 2.5 mg INHALATION Q4H.RESPIRATORY PRN PRN Reason: SHORTNESS OF BREATH Albuterol/Ipratropium (Ipratropium-Albuterol 3 Ml Neb) 3 ml INHALATION Q4H.RESPIRATORY DAVID Last Admin: 04/15/22 03:25 Dose: 3 ml Allopurinol (Allopurinol 100 Mg Tablet) 100 mg PO DAILY [facility] Last Admin: 04/14/22 08:30 Dose: 100 mg Aspirin (Aspirin 81 Mg Ec Tablet) 81 mg PO QAM [facility] Last Admin: 04/15/22 05:06 Dose: 81 mg Atorvastatin Calcium (Atorvastatin 40 Mg Tablet) 40 mg PO QAM [facility] Last Admin: 04/15/22 05:06 Dose: 40 mg Benzonatate (Benzonatate 100 Mg Capsule) 200 mg PO TID PRN PRN Reason: COUGH Last Admin: 04/14/22 17:43 Dose: 200 mg Budesonide (Budesonide 0.5 Mg/2 Ml Neb) 0.5 mg INHALATION BID.RESPIRATORY DAVID Last Admin: 04/14/22 20:31 Dose: 0.5 mg Carvedilol (Carvedilol 3.125 Mg Tablet) 3.125 mg PO BID [facility] Last Admin: 04/14/22 17:42 Dose: 3.125 mg Clopidogrel Bisulfate (Clopidogrel 75 Mg Tablet) 75 mg PO QAM [facility] Last Admin: 04/15/22 05:06 Dose: 75 mg Dextrose (Dextrose 50% Syringe 50 Ml) 25 ml IVP ONCE PRN; Protocol PRN Reason: hypoglycemia protocol Dextrose (Dextrose 50% Syringe 50 Ml) 50 ml IVP PRN PRN; Protocol PRN Reason: hypoglycemia protocol Enoxaparin Sodium (Enoxaparin 30 Mg/0.3 Ml Syringe) 30 mg SUBCUT Q24H DAVID Last Admin: 04/14/22 08:41 Dose: 30 mg Famotidine (Famotidine 20 Mg Tablet) 20 mg PO BID [facility] Last Admin: 04/14/22 17:42 Dose: 20 mg Glucagon (Glucagon 1 Mg/Ml Inj 1 Ml) 1 mg IM ONCE PRN; Protocol PRN Reason: Adult Acute Hypoglycemia Prot. Guaifenesin (Guaifenesin 600 Mg Tablet) 1,200 mg PO BID [facility] Last Admin: 04/14/22 17:42 Dose: 1,200 mg Levofloxacin/Dextrose (Levaquin-D5w) 750 mg in 150 mls @ 100 mls/hr IV Q48H DAVID; Protocol Last Infusion: 04/13/22 12:44 Dose: Infused Norepinephrine Bitartrate 4 mg (/ Dextrose) 254 mls @ 0 mls/hr IV .Q0M DAVID; Protocol Last Titration: 04/11/22 15:35 Dose: Infused Dextrose (D5w) 500 mls @ 100 mls/hr IV ONCE PRN; Protocol PRN Reason: Adult Acute Hypoglycemia Prot Piperacillin Sod/Tazobactam (Sod 3.375 gm/ Sodium Chloride) 50 mls @ 12.5 mls/hr IV Q12H [facility]; Protocol Last Infusion: 04/15/22 00:30 Dose: Infused Insulin Human Lispro (Insulin Lispro 100 Unit/1 Ml) 0 unit SUBCUT Q8H DAVID; Protocol Last Admin: 04/15/22 06:30 Dose: Not Given Levothyroxine Sodium (Levothyroxine 75 Mcg Tablet) 75 mcg PO QAM DAVID Last Admin: 04/15/22 05:06 Dose: 75 mcg Methylprednisolone Sodium Succinate (Methylprednisolone Sod Succ 40 Mg/Ml Inj) 40 mg IVP Q6H DAVID Last Admin: 04/15/22 04:53 Dose: 40 mg Midazolam HCl (Midazolam 1 Mg/Ml Inj 2 Ml) 0.5 mg IVP Q2H PRN PRN Reason: ANXIETY Last Admin: 04/14/22 10:02 Dose: 0.5 mg Ondansetron HCl (Ondansetron 2 Mg/Ml Sdv 2 Ml) 4 mg IVP Q8H PRN PRN Reason: vomiting, or N/V if npo Last Admin: 04/12/22 19:48 Dose: 4 mg Pantoprazole Sodium (Pantoprazole 40 Mg Sdv) 40 mg IVP Q24H DAVID Last Admin: 04/15/22 04:53 Dose: 40 mg Vitals/I&O/Wt Last Vital Signs Temp 98.4 F 04/15/22 00:00 Pulse 63 04/15/22 07:00 Resp 22 H 04/15/22 07:00 BP 118/57 04/15/22 07:00 Pulse Ox 97 04/15/22 07:00 O2 Del Method 04/15/22 03:26 O2 Flow Rate 2 04/15/22 03:26 FiO2 28 04/15/22 00:15 04/14/22 04/15/22 04/15/22 22:59 06:59 14:59 Intake Total 480 / 530 350 / 880 Output Total 1775 / 1775 950 / 2725 Balance -1295 / -1245 -600 / -1845 Weight last 48 hrs Weight 64.864 kg Weight 66.905 kg Physical Exam Narrative: comfortable,NARD, sitting up on nc 02 heent- nc/at, eomi, anicteric neck supple lungs -scattered exp wheezes b/l heart reg, paced rhythm abd soft, nd, nt, + bs ext no leg edema b/l neuro- a,a, o x 3, FROM x 4 Urinary Catheter Management: Ryan: Cath Placed During This Visit: yes Reason for Continuing Indwelling Catheter: Accurate Measurement of Urinary Output in Critically Ill Patients Urinary Catheter Date of Insertion: 04/09/22 Urinary Catheter Time of Insertion: 11:15 Data : 04/15/22 02:36 04/15/22 02:36 A&P Assessment and plan (1) Acute kidney injury superimposed on CKD: 76 yr old man CHFrEF- 25% w/ ICD and mild , COPD, CKD stage 3 b 1. CKD stage 3b previous urine was normal - renal us = rt 9 cm, left not visualized- due to gas pattern., u/a, u pr and cr -has had intermittent hematuria in the past 2. LICO - urinalysis large blood, 40-50 rbc -await serologies, jhoan negative - u pr 9, -ck 63 -likely CRS vs overdiuresis -monitor uop and chemistries -BUN remains 100, stable, cr stable- would hold diuretics. encourage fluids ad protein by mouth -monitoruop and chemistries -high bun can be from steroids -immunology tests are pending 3. PNA - renal dose abx 4. Acute on chronic systolic CHF - diuretics per cardiology -if needs cardiac cath- he is at increased risk for CI- LICO -improved clinically -uric acid 10 from diuretics and lico- start allopurinol 100 mg d 5. anemia- iron sat = 8.4, ferritin 66- evaluate for BIB -start ferrlecit -hgb stable check SPEP/ SIFE 6. hyponatremia -na improved off of lasix and as LICO improves 7. inc AGMA from LICO-improved 8. renal bone mineral metabolism- phos improved to 5.7- may need a binder normal vit d, - pth 182- recheck in 4 weeks- may need a vit d analouge seen and examined w/ [facility]AGE HAND- Telehealth visit time spent 30 min Plan as above Attestations Medical Necessity Statement*: per medicine- lico and chf Time Spent in Patient Care: 16 - 35 minutes (>than 50% of time spent in counselling and/or direct pt care on unit) . 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
--- NOTE | 2022-04-15 08:29 | CT_ITS ---
WS: [id number] CT CHEST TECHNIQUE: Noncontrast CT of the chest with coronal and sagittal reformatted images. CLINICAL INFORMATION: sob COMPARISON: None. DLP: 654.[address] scans at [facility] use at least one of these dose optimization techniques: automated e xposure control; mA and/or kV adjustment per patient size (includes targeted exams where dose is matc hed to clinical indication); or iterative reconstruction. FINDINGS: Mild chronic emphysematous changes. AICD. Cardiomegaly. Dense coronary calcification. No mediastinal or hilar lymphadenopathy. Compressive atelectasis in the lung bases with trace pleural fluid. Interstitial thickening in the RI GHT upper lobe and RIGHT middle lobe nonspecific but likely pulmonary edema. No adenopathy at the tho racic inlet. Lung apices are well aerated. No axillary lymphadenopathy. Partially evaluated small hepatic cysts. Normal GE junction. Fluid distended stomach with air-fluid l evel. CT/CT chest wo con [id number] IMPRESSION: 1. No evidence of mediastinal or AP window mass. 2. Cardiomegaly with dense coronary calcification. 3. Tiny bilateral pleural effusions compressive atelectasis and interstitial t hickening in the lung bases likely due to edema. 4. Faint interstitial thickening in the RIGHT upper lobe and RIGHT middle lob e also likely due to edema. 5. A few partially visualized RIGHT hepatic cysts. 6. No other acute findings.
--- NOTE | 2022-04-15 08:40 | CT_ITS ---
WS: [id number] CT NECK TECHNIQUE: Noncontrast CT of the neck with coronal and sagittal reformatted images. CLINICAL INFORMATION: vocal cord dysfuncrtion COMPARISON: None. DLP: 654.[address] scans at [facility] use at least one of these dose optimization techniques: automated e xposure control; mA and/or kV adjustment per patient size (includes targeted exams where dose is matc hed to clinical indication); or iterative reconstruction. FINDINGS: Motion/swallowing artifact degrades some images at the glottis. Ballooning of the LEFT lara ngeal ventricle with medial rotation of the LEFT arytenoid suspicious for LEFT vocal cord paralysis. This can be further evaluated with endoscopy. Normal posterior nasopharynx. Normal parapharyngeal fat. No evidence of supraglottic or glottic mass. Normal piriform sinuses. Subglottic airway is patent. Lung apices are well aerated. Partially visual ized intracranial contents are normal. Small amount of fluid in the RIGHT maxillary sinus compatible with sinusitis. Mastoid air cells are well aerated. Parotid glands are normal. Normal submandibular glands. Carotid bulb calcification. No cervical lymph adenopathy. Mild spondylitic changes cervical spine. CT/CT neck wo con [id number] IMPRESSION: 1. Findings suspicious for LEFT vocal cord paralysis. This can be further eval uated with endoscopy. 2. No evidence of supraglottic or glottic mass. 3. No cervical lymphadenopathy. 4. Normal salivary glands. 5. Lung apices are well aerated. 6. RIGHT maxillary sinusitis with air-fluid level.
[2022-04-15] MEDS: budesonide 0.5 mg/2 mL Neb INHALATION ×2 (08:56→20:11)
[2022-04-15] MEDS: guaiFENesin 600 mg Tablet 1200 MG PO ×2 (09:02→17:56)
[2022-04-15] MEDS: allopurinol 100 mg Tablet PO (09:03)
[2022-04-15] MEDS: famotidine 20 mg Tablet PO ×2 (09:03→17:57)
[2022-04-15] MEDS: carvedilol 3.125 mg Tablet PO ×2 (09:03→17:57)
[2022-04-15] MEDS: piperacillin-tazobactam 3.375 GM in sodium chloride 0.9% (plus) 50 ML IV ×2 (09:03→17:57)
[2022-04-15] MEDS: enoxaparin 30 mg/0.3 mL Syringe SUBCUT (09:03)
--- NOTE | 2022-04-15 10:39 | PC.CHAP ---
Pastoral Care Encounter/Spiritual Assessment Type of Contact [] Declined practice representative visit [] Patient/Family/Request visit [] Outpatient visit [] Follow-up visit [] Physician referral [] Code/Alert [X] Routine visit [] Staff referral [] Actively dying [] Patient sleeping [X] Family support [] [] Out of room [] Palliative care [] [X] Receiving care in room [] Pre-surgical visit [] Trauma [] Long length of stay [X] ICU visit [X] Other: pt setting on side of bed.. feeling stronger.. Relational/Emotional Strength [] Patient feels connected with others/family/visitors/staff [] Distress [] Loneliness/isolation [] Abandonment Spirituality of Patient [] Person of Cecy [] Attends Oriental Orthodox of their Cecy [] Believes in Prayer [] Reads Bible or Worship materials [] There are Spiritual issues to be addressed Bank Representative Interventions [X] Prayer [] Active listening [] Non-anxious presence [] Spiritual/emotional support [] Crisis/trauma care [] Spiritual counseling [] Bereavement support [] Provided bereavement packet [] Provided Bible/devotional materials [] Provided toy/stuffed animal, coloring book to patient or family member [] Provided Communion [] Anointing/[place] [] Salvation [X] Completed spiritual assessment [] Other: Impact on Illness or Injury [] Angry [] Fearful [] Anxious [] Often cries [] Exhaustion [] Unable to work [] Unable to attend advent [] Unable to walk/stand [] Unable to read [] Unable to drive [] Unable to eat/drink [] Unable to sleep [] Unable to be with family [] Patient intubated [] Other: Summary Time spent with patient
[2022-04-15 13:06] LABS: Glucose Point of Care 105 mg/dL (70-110)
[2022-04-15] MEDS: levofloxacin-dextrose 5 % 750 MG/150 ML PREMIX 100 MG IV (13:47)
--- NOTE | 2022-04-15 14:08 | P.PN_ITS ---
Subjective Subjective: Patient was seen this morning he sitting up to the side of the bed, he tells me that he is feeling well, no chest pain, no shortness of breath, no lightheadedness, dizziness, he does not know what happened yesterday, but he tells me that he suddenly gets short of breath without any apparent reason, potentially could be anxiety related, Vitals/I&O/Wt Last Vital Signs Temp 98.4 F 04/15/22 00:00 Pulse 79 04/15/22 10:00 Resp 24 H 04/15/22 10:00 BP 119/49 04/15/22 10:00 Pulse Ox 99 04/15/22 10:00 O2 Del Method 04/15/22 08:56 O2 Flow Rate 2 04/15/22 03:26 FiO2 28 04/15/22 00:15 04/14/22 04/15/22 04/15/22 22:59 06:59 14:59 Intake Total 480 / 530 350 / 880 610 / 610 Output Total 1775 / 1775 950 / 2725 Balance -1295 / -1245 -600 / -1845 610 / 610 Weight last 48 hrs Weight 64.864 kg Weight 66.905 kg Physical Exam Const: COMMON NORMALS: no acute distress and patient oriented x3 Resp: COMMON NORMALS: normal respiratory effort, No retractions, No use of accessory muscles and clear to auscultation bilaterally AUSCULTATION: clear to auscultation bilaterally Cardio: COMMON NORMALS: regular rate, regular rhythm, S1 normal heart sound present and S2 normal heart sound present RATE: regular rate RHYTHM: regular rhythm HEART SOUNDS: S1 normal heart sound present and S2 normal heart sound present GI: COMMON NORMALS: Normal to inspection, nondistended, normoactive bowel sounds present, non-tender and no bruits Extremity: COMMON NORMALS: no pedal edema Neuro: COMMON NORMALS: patient oriented x3 Psych: COMMON NORMALS: mental status grossly normal Urinary Catheter Management: Ryan: Cath Placed During This Visit: yes Reason for Continuing Indwelling Catheter: Accurate Measurement of Urinary Output in Critically Ill Patients Urinary Catheter Date of Insertion: 04/09/22 Urinary Catheter Time of Insertion: 11:15 Data : 04/15/22 02:36 04/15/22 02:36 A&P Assessment and plan (1) Acute kidney injury superimposed on CKD: 1. CT of the neck shows left vocal cord dysfunction versus paralysis -ENT consulted, consideration of laryngoscopy, monitor respiratory status closely, monitor in ICU -Patient has already had an episode of respiratory distress yesterday morning, required BiPAP, improved thereafter 2. acute respiratory failure with hypoxia -Status postextubation -Secondary to fluid overload, pulm edema and pneumonia -Respiratory culture showing Bordetella bronchiseptica? -CT of the chest?continues to show evidence of pulmonary edema, bilateral pleural effusions, will continue to keep fluid restrictions, and diurese -Continue antibiotic therapy #3 LICO on CKD, nephrology consult Dr. 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
[2022-04-15] MEDS: ferric gluconate 125 MG in sodium chloride 0.9% (100 ml) 100 ML 110 MG IV (16:45)
--- NOTE | 2022-04-15 17:56 | PM.CONSULT ---
Providers/Reason For Consult Consulting Physician/Specialty*: Dr. Jose Rodriguez MD Otolaryngology, Head & Neck Surgery Reason for Consult*: Intermittent SOB Possible vocal cord paralysis Requesting Physician: Dr. Jose Mack MD Attending Physician: Jose Mack MD Primary Care Provider: Gregorio Cunningham DO History of Present Illness History of Present Illness Juarez Delgado is a 76 year old male with a h/o recurrent episodes of shortness of breath and findings on neck CT suggesting vocal cord paralysis. The patient is currently without c/o, is able to eat well, and is currently breathing well without c/o SOB. Review of Systems General: Reports: 10 or more systems reviewed and unremarkable except in HPI and below Medications/Allergies Home Medications Medication Instructions Recorded Confirmed Last Taken Type aspirin 81 mg tablet,delayed 81 mg PO QAM 08/25/19 04/08/22 04/08/22 History release levothyroxine 75 mcg tablet 75 mcg PO QAM 08/25/19 04/08/22 04/08/22 History (Synthroid) furosemide 40 mg tablet 60 mg PO DIRECTED #135 tabs 05/14/21 04/08/22 04/08/22 Rx atorvastatin 40 mg tablet 40 mg PO QAM #90 tabs 11/01/21 04/08/22 04/08/22 Rx spironolactone 25 mg tablet 25 mg PO QAM #90 tabs 12/03/21 04/08/22 04/08/22 Rx nitroglycerin 0.4 mg sublingual 0.4 mg sublingual Q5M PRN chest 12/12/21 04/08/22 01/11/22 Rx tablet (Nitrostat) pain #25 tabs carvedilol 3.125 mg tablet 3.125 mg PO BID #90 tabs 02/06/22 04/08/22 04/08/22 Rx clopidogrel 75 mg tablet (Plavix) 75 mg PO QAM #90 tabs 02/11/22 04/08/22 04/08/22 Rx Allergies Allergy/AdvReac Type Severity Reaction Status Date / Time No Known Allergies Allergy Verified 04/08/22 05:58 Current Medications Generic Name Dose Route Start Last Admin Trade Name Freq PRN Reason Stop Dose Admin Hydrocodone Bitart/Acetaminophen 1 tab 04/08/22 05:21 04/12/22 22:41 Hydrocodone-Acetaminophen 5-325 Mg Tablet PO 1 tab Q6H PRN Administration Moderate Pain Albuterol/Ipratropium 3 ml 04/08/22 08:00 04/15/22 15:45 Ipratropium-Albuterol 3 Ml Neb INHALATION 3 ml Q4H.RESPIRATORY DAVID Administration Allopurinol 100 mg 04/12/22 09:30 04/15/22 09:03 Allopurinol 100 Mg Tablet PO 100 mg DAILY DAVID Administration Aspirin 81 mg 04/08/22 06:00 04/15/22 05:06 Aspirin 81 Mg Ec Tablet PO 81 mg QAM DAVID Administration Atorvastatin Calcium 40 mg 04/08/22 06:00 04/15/22 05:06 Atorvastatin 40 Mg Tablet PO 40 mg QAM DAVID Administration Benzonatate 200 mg 04/14/22 10:11 04/14/22 17:43 Benzonatate 100 Mg Capsule PO 200 mg TID PRN Administration COUGH Budesonide 0.5 mg 04/08/22 08:00 04/15/22 08:56 Budesonide 0.5 Mg/2 Ml Neb INHALATION 0.5 mg BID.RESPIRATORY DAVID Administration Carvedilol 3.125 mg 04/08/22 09:00 04/15/22 09:03 Carvedilol 3.125 Mg Tablet PO 3.125 mg BID DAVID Administration Clopidogrel Bisulfate 75 mg 04/08/22 06:00 04/15/22 05:06 Clopidogrel 75 Mg Tablet PO 75 mg QAM DAVID Administration Enoxaparin Sodium 30 mg 04/11/22 08:00 04/15/22 09:03 Enoxaparin 30 Mg/0.3 Ml Syringe SUBCUT 30 mg Q24H DAVID Administration Famotidine 20 mg 04/13/22 20:30 04/15/22 09:03 Famotidine 20 Mg Tablet PO 20 mg BID DAVID Administration Guaifenesin 1,200 mg 04/08/22 16:45 04/15/22 09:02 Guaifenesin 600 Mg Tablet PO 1,200 mg BID DAVID Administration Levofloxacin/Dextrose 750 mg in 150 mls @ 100 mls/hr 04/09/22 10:30 04/15/22 15:17 Levaquin-D5w IV Infused Q48H DAVID Infusion Protocol Norepinephrine Bitartrate 4 mg 254 mls @ 0 mls/hr 04/09/22 12:45 04/11/22 15:35 / Dextrose IV Infused .Q0M DAVID Titration Protocol Per Protocol Ferric Sodium Gluconate 125 mg 110 mls @ 110 mls/hr 04/15/22 08:00 04/15/22 17:45 / Sodium Chloride IV 04/22/22 08:59 Infused Q24H DAVID Infusion Insulin Human Lispro 0 unit 04/09/22 13:30 04/15/22 13:05 Insulin Lispro 100 Unit/1 Ml SUBCUT Not Given Q8H DAVID Protocol Levothyroxine Sodium 75 mcg 04/08/22 06:00 04/15/22 05:06 Levothyroxine 75 Mcg Tablet PO 75 mcg QAM DAVID Administration Methylprednisolone Sodium Succinate 40 mg 04/08/22 17:00 04/15/22 13:47 Methylprednisolone Sod Succ 40 Mg/Ml Inj IVP 40 mg Q6H DAVID Administration Midazolam HCl 0.5 mg 04/12/22 17:24 04/14/22 10:02 Midazolam 1 Mg/Ml Inj 2 Ml IVP 0.5 mg Q2H PRN Administration ANXIETY Ondansetron HCl 4 mg 04/08/22 05:21 04/12/22 19:48 Ondansetron 2 Mg/Ml Sdv 2 Ml IVP 4 mg Q8H PRN Administration vomiting, or N/V if npo Pantoprazole Sodium 40 mg 04/08/22 05:21 04/15/22 04:53 Pantoprazole 40 Mg Sdv IVP 40 mg Q24H DAVID Administration PFSH Acute PFSH: Medical History Aortic stenosis Echo 10/01 with mild aortic stenosis, [place] 1.6 cm2, mean gradient 11.6 mmHg, peak velocity 2.4 m/sec CAD (coronary artery disease) Chronic kidney disease COPD (chronic obstructive pulmonary disease) Erectile dysfunction HLD (hyperlipidemia) HTN (hypertension) Hypothyroidism Ischemic cardiomyopathy Squamous cell carcinoma skin of arm Tobacco abuse Surgical History AICD (automatic cardioverter/defibrillator) present Pacemaker Medtronic S/P PTCA (percutaneous transluminal coronary angioplasty) August 2019 Family History Brother CAD (coronary artery disease) Social History Smoking and tobacco status: current every day smoker cigarettes Packs smoked per day: 1 Years cigarettes smoked: 50 Alcohol intake: current Alcohol intake frequency: few times a month Vitals/I&O/Wt Last Vital Signs Temp 98.4 F 04/15/22 00:00 Pulse 65 04/15/22 16:00 Resp 17 04/15/22 16:00 BP 118/54 04/15/22 16:00 Pulse Ox 96 04/15/22 16:00 O2 Del Method 04/15/22 15:40 O2 Flow Rate 2 04/15/22 03:26 FiO2 28 04/15/22 00:15 04/15/22 04/15/22 04/15/22 06:59 14:59 22:59 Intake Total 350 / 880 660 / 660 260 / 920 Output Total 950 / 2725 Balance -600 / -1845 660 / 660 260 / 920 Weight last 48 hrs Weight 64.864 kg Weight 66.905 kg Physical Exam Const: COMMON NORMALS: no acute distress, patient oriented x3, healthy appearing, alert and well nourished HENMT: COMMON NORMALS: atraumatic, external ears normal and Normal external nose present HEAD & SCALP: atraumatic FACE & SINUS: normal facial exam NOSE: Normal external nose present and Epistaxis present (There is fresh blood in the right nasal cavity, but no active bleeding.) EXTERNAL EAR: Yes external ears normal MOUTH: Normal oral and palatal mucosa present and tongue normal Eye: COMMON NORMALS: EOMs intact bilaterally, conjunctivae normal and no scleral icterus CONJUNCTIVA: Yes conjunctivae normal Neck/C-Spine: COMMON NORMALS: full ROM, no lymphadenopathy and supple GENERAL: Yes trachea midline Neuro: COMMON NORMALS: patient oriented x3 SENSORIUM/ORIENTATION: Yes alert Urinary Catheter Management: Ryan: Cath Placed During This Visit: yes Reason for Continuing Indwelling Catheter: Accurate Measurement of Urinary Output in Critically Ill Patients Urinary Catheter Date of Insertion: 04/09/22 Urinary Catheter Time of Insertion: 11:15 Data : 04/15/22 02:36 04/15/22 02:36 Micro: Microbiology 04/09/22 12:15 Gram Stain - Final Sputum - Endotracheal Tube Aspirate Sputum Culture - Final Bordetella bronchiseptica#2 Attestation for Other Data: I personally reviewed and interpreted the following: Other data: Neck CT () A&P Assessment and plan (1) Acute respiratory failure with hypoxia and hypercapnia: Impression: With a normal endoscopic laryngeal exam today - the differential diagnosis includes a primary pulmonary cause of the patient's symptoms vs spasmodic dysphonia which can only be diagnosed while the patient is symptomatic Plan: - Observation - Have the patient f/u with me as an outpatient and/or while symptomatic for an acute exam (2) Sinusitis, acute: Impression: Acute maxillary sinusitis seen on neck CT Plan: - I recommend outpatient treatment with oral Augmentin for 10 -14 days - The patient can f/u with me as an outpatient after treatment complete (3) Epistaxis: Impression: Fresh blood in right nasal cavity without active bleeding Plan: - I recommend saline nasal spray to nasal cavities TID - I will evaluate further as an outpatient Consult Attestations Medical Necessity Statement: I was consulted to evaluate the patient's airway Procedures Procedure Narrative Fiberoptic Laryngoscopy: verbal informed consent was obtained from the patient; the patient's nose was sprayed with an Afrin/Lidocaine mix; the fiberoptic nasopharyngolaryngoscope was passed through the patient's left nostril and was used to inspect the nasopharynx, oralpharynx, hypopharynx and larynx; the laryneal exam showed normal true vocal cord mobility bilaterally and a widely patent airway; the endosocpic exam was o/w normal. Coding Level of Care Code Acute Program Control Analyst for [facility] Diagnoses Acute respiratory failure with hypoxia and hypercapnia J96.01; J96.02 Sinusitis, acute J01.90 Epistaxis R04.0
[2022-04-15 21:09] LABS: Glucose Point of Care 117 mg/dL (70-110)
[2022-04-16] VITALS (34 sets, daily range): BP systolic 95–124; BP diastolic 52–65; PULSE 60–84; RESP 11–37; TEMP 36.4–36.5; O2SAT 92–99
[2022-04-16] MEDS: piperacillin-tazobactam 3.375 GM in sodium chloride 0.9% (plus) 50 ML IV (00:02)
[2022-04-16] MEDS: ipratropium-albuterol 3 mL Neb INHALATION ×3 (03:13→11:37)
[2022-04-16 04:12] LABS: Basophils % 0.1 %; Hematocrit 29.2 % (42.0-52.0); Hemoglobin 9.7 g/dL (11.7-16.6); Lymphocytes # 0.4 10^3/uL (0.8-4.8); Lymphocytes % 4.5 %; Mean Corpuscular HGB Conc 33.2 g/dL (30.0-36.0); Mean Corpuscular Volume 93.3 fl (80-94); Mean Platelet Volume 12.4 fL (7.4-10.4); Monocytes # 0.5 10^3/uL (0.2-0.9); Neutrophils # 8.18 10^3/uL (1.8-7.7); Neutrophils % 89.3 %; Nucleated Red Blood Cells % 0 %; Platelet Count 195 10^3/cmm (130-400); Red Blood Count 3.13 10^6/uL (4.1-5.3); Red Cell Distribution Width 13.8 % (12.1-15.1); White Blood Count 9.2 10^3/uL (4.0-10.0)
[2022-04-16 04:42] LABS: Alanine Aminotransferase 14 U/L (0-41); Albumin Level 3.6 g/dL (3.5-5.2); Alkaline Phosphatase 47 U/L (40-130); Anion Gap 15.4 (5-19); Aspartate Amino Transferase 18 U/L (0-40); Blood Urea Nitrogen 78 mg/dL (8-23); Calcium 8.5 mg/dL (8.5-10.5); Carbon Dioxide 22 mmol/L (22-29); Chloride 103 mmol/L (98-107); Glucose 132 mg/dL (65-115); Magnesium 3.1 mg/dL (1.7-2.3); NT Pro B Type Natriuretic Pept 6642 pg/mL (0-450); Osmolality Calculated 307 mOsm/kg (285-295); Phosphorus 4.1 mg/dL (2.5-4.5); Potassium 4.4 mmol/L (3.5-5.1); Sodium 136 mmol/L (136-145); Total Bilirubin 0.6 mg/dL (0.15-1.2); Total Protein 5.6 g/dL (6.6-8.7)
[2022-04-16] MEDS: pantoprazole 40 mg SDV IVP (05:06)
[2022-04-16] MEDS: levothyroxine 75 mcg Tablet PO (05:07)
[2022-04-16] MEDS: aspirin 81 mg EC Tablet PO (05:07)
[2022-04-16] MEDS: atorvastatin 40 mg Tablet PO (05:07)
[2022-04-16] MEDS: clopidogrel 75 mg Tablet PO (05:07)
[2022-04-16] MEDS: insulin lispro 100 unit/1 mL SUBCUT (05:12)
[2022-04-16 05:13] LABS: Glucose Point of Care 142 mg/dL (70-110)
[2022-04-16] MEDS: budesonide 0.5 mg/2 mL Neb INHALATION (07:52)
[2022-04-16] MEDS: enoxaparin 30 mg/0.3 mL Syringe SUBCUT (09:55)
[2022-04-16] MEDS: carvedilol 3.125 mg Tablet PO (09:57)
[2022-04-16] MEDS: famotidine 20 mg Tablet PO (09:57)
[2022-04-16] MEDS: allopurinol 100 mg Tablet PO (09:57)
[2022-04-16] MEDS: guaiFENesin 600 mg Tablet 1200 MG PO (09:58)
[2022-04-16] MEDS: FUROsemide 40 mg Tablet PO (09:58)
[2022-04-16] MEDS: predniSONE 20 mg Tablet 40 MG PO (10:04)
--- NOTE | 2022-04-16 10:21 | PM.PN ---
Subjective Subjective: Patient is stable. Denies chest pain or shortness of breath. Vitals/I&O/Wt Last Vital Signs Temp 97.5 F L 04/16/22 08:08 Pulse 60 04/16/22 08:08 Resp 16 04/16/22 08:08 BP 112/63 04/16/22 08:08 Pulse Ox 98 04/16/22 08:08 O2 Del Method 04/16/22 08:08 O2 Flow Rate 2 04/15/22 03:26 FiO2 28 04/15/22 00:15 04/15/22 04/16/22 04/16/22 22:59 06:59 14:59 Intake Total 790 / 1450 50 / 1500 Output Total 800 / 800 1050 / 1850 Balance -10 / 650 -1000 / -350 Weight last 48 hrs Weight 143 lb Physical Exam Narrative: GENERAL: Patient is alert and oriented HEENT: No cyanosis. No icterus. No pallor. [] HEART: Regular S1 and S2. No murmur, rub or gallop. [] LUNGS: Diminished breathing sounds ABDOMEN: Soft CENTRAL NERVOUS SYSTEM: Grossly nonfocal. [] EXTREMITIES: Lower extremities with 1+ edema bilaterally. Pulses palpable in the lower extremities, both dorsalis pedis and posterior tibial. [] Urinary Catheter Management: Ryan: Cath Placed During This Visit: yes Reason for Continuing Indwelling Catheter: Accurate Measurement of Urinary Output in Critically Ill Patients Urinary Catheter Date of Insertion: 04/09/22 Urinary Catheter Time of Insertion: 11:15 Data : 04/16/22 03:26 04/16/22 03:26 Micro: Microbiology 04/09/22 12:15 Gram Stain - Final Sputum - Endotracheal Tube Aspirate Sputum Culture - Final Bordetella bronchiseptica#2 A&P Assessment and plan (1) COPD exacerbation: (2) Congestive heart failure: (3) Acute respiratory failure with hypoxia: (4) LV dysfunction: (5) Non-ST elevation AL (NSTEMI): (6) HTN (hypertension): Qualifiers: Hypertension type: essential hypertension Qualified Code(s): I10 - Essential (primary) hypertension (7) CAD (coronary artery disease): Qualifiers: Coronary Disease-Associated Artery/Lesion type: [place] artery [place] vs. transplanted heart: [place] heart Associated angina: angina presence unspecified Qualified Code(s): I25.10 - Atherosclerotic heart disease of [place] coronary artery without angina pectoris (8) Ischemic cardiomyopathy: Plan Patient is stable. He wants to for further work-up as outpatient. Continue current medications Thank you for involving us with care of this patient. Please call with questions Attestations Medical Necessity Statement*: Care expected to cross 2 midnights. Coding Level of Care Code Acute Golf Superintendent for Kuldeep Fwd Diagnoses COPD exacerbation J44.1 Congestive heart failure I50.9 Acute respiratory failure with hypoxia J96.01 LV dysfunction I51.9 Non-ST elevation AL (NSTEMI) I21.4 HTN (hypertension) I10 Hypertension type: essential hypertension CAD (coronary artery disease) I25.10 Coronary Disease-Associated Artery/Lesion type: [place] artery [place] vs. transplanted heart: [place] heart Associated angina: angina presence unspecified Ischemic cardiomyopathy I25.5
[2022-04-16 11:13] LABS: Glucose Point of Care 145 mg/dL (70-110)
--- NOTE | 2022-04-16 11:35 | PM.DCS ---
Discharge Providers Date of Admission: 04/08/22 05:21 Date of Discharge: April 16, 2022 Attending Provider at Admission: Jose Mack MD Attending Provider at Discharge: Jose Mack MD Primary Care Provider: Gregorio Cunningham DO Diagnoses at Discharge Discharge Diagnosis (1) COPD exacerbation: Status: Acute (2) Congestive heart failure: Status: Acute (3) Acute respiratory failure with hypoxia: Status: Acute (4) LV dysfunction: Status: Acute (5) Non-ST elevation AR (NSTEMI): Status: Acute (6) HTN (hypertension): Status: Chronic Qualifiers: Hypertension type: essential hypertension Qualified Code(s): I10 - Essential (primary) hypertension (7) CAD (coronary artery disease): Status: Chronic Qualifiers: Coronary Disease-Associated Artery/Lesion type: [place] artery [place] vs. transplanted heart: [place] heart Associated angina: angina presence unspecified Qualified Code(s): I25.10 - Atherosclerotic heart disease of [place] coronary artery without angina pectoris (8) Ischemic cardiomyopathy: Status: Chronic Reason for Visit Reason for Visit: sob Hospital Course Hospital Course Juarez Delgado is a 76 year old male COPD, smoker, CAD, CHF, history of ICD placement, hyperlipidemia, hypothyroidism, last EF 20 to 25%, ischemic cardiomyopathy who presents [facility] for shortness of breath.? Patient was admitted to [facility] for acute hypoxic respiratory failure secondary to pneumonia, pulm edema, fluid overload, systolic CHF exacerbation, ischemic cardiomyopathy, NSTEMI, COPD exacerbation. Patient required intubation, mechanical ventilation, broad-spectrum antibiotic therapy, steroid therapy, diuretic therapy, cardiology was consulted nephrology was consulted. Overall patient clinically improved, was extubated, -6 L, sputum culture show Bordetella bronchiseptica, antibiotic therapy was tailored. Patient was moved to general medical floors, ambulating without significant symptomatology, steroid therapy and diuretic therapy was also de-escalated. Patient also developed LICO on CKD likely secondary to above, diuretic therapy have to be tailored, but creatinine on discharge was 2.1, BUN 7.8. In terms of patient's COPD exacerbation, patient was advised to quit smoking, discharged on inhaler therapy, discharge without any need of oxygen. In terms of patient's ischemic cardiomyopathy, he did have troponin elevation, cardiology recommended inpatient stress testing however on 04/16/2022 patient was adamant about going home, discussed risks of going home without appropriate stress testing, morbidity and mortality discussed, risk of cardiac arrest, he boisterously all questions answered, however was adamant about going home. Patient will be discharged home with aspirin, statin, Plavix, Coreg, nitro as needed, instructions to come back to the hospital if he were to have chest pain, follow-up with cardiology in 4 weeks for consideration of stress testing. In terms of patient's systolic CHF exacerbation, ischemic cardiomyopathy, fluid overload, I have discharged him on Lasix 40 mg p.o. daily with potassium replacement therapy. If you have any worsening shortness of breath go to emergency room. In terms of patient's LICO on CKD, creatinine discharge 2.1, follow-up with Dr. Hyman as outpatient. In terms of patient's pneumonia, discharged on 7 more days of antibiotic therapy. In addition there was concerns for vocal cord dysfunction or paralysis, as 24 hours after extubation, patient had significant episodes of respiratory distress, likely related to anxiety. His case was discussed with ENT, Dr. Bourne performed a nasal laryngea scopic examination without any evidence of vocal cord dysfunction. No recurrent shortness of breath during his hospitalization, no hoarseness, no trouble with phonation. Patient will follow-up with ENT as outpatient. In addition patient he did have some evidence of iron deficiency anemia, likely from renal failure, however he is on aspirin, Plavix discharged on Protonix, Carafate with a follow-up with hematology oncology as outpatient for consideration of iron infusions. If he were to have any blood or black stools go to the emergency room. Physical Exam Const: COMMON NORMALS: no acute distress and patient oriented x3 Resp: COMMON NORMALS: normal respiratory effort, No retractions, No use of accessory muscles and clear to auscultation bilaterally AUSCULTATION: clear to auscultation bilaterally Cardio: COMMON NORMALS: regular rate, regular rhythm, S1 normal heart sound present and S2 normal heart sound present RATE: regular rate RHYTHM: regular rhythm HEART SOUNDS: S1 normal heart sound present and S2 normal heart sound present GI: COMMON NORMALS: Normal to inspection, nondistended, normoactive bowel sounds present, Soft to palpation and non-tender PALPATION: Yes Soft to palpation Extremity: COMMON NORMALS: no pedal edema Neuro: COMMON NORMALS: patient oriented x3 Psych: COMMON NORMALS: mental status grossly normal Urinary Catheter Management: Ryan: Cath Placed During This Visit: yes Reason for Continuing Indwelling Catheter: Accurate Measurement of Urinary Output in Critically Ill Patients Urinary Catheter Date of Insertion: 04/09/22 Urinary Catheter Time of Insertion: 11:15 Discharge Data Studies Completed and Pending Completed Studies During Hospitalization Category Date Time Status CT chest wo con [id number] Routine Cat Scan 04/15/22 08:[address] neck wo con [id number] Routine Cat Scan 04/15/22 08:40 Completed CXRP [XR chest 1V portable [id number]] Stat Exams 04/09/22 09:17 Completed CXRP [XR chest 1V portable [id number]] Stat Exams 04/09/22 11:44 Completed XR chest 1V portable [id number] Routine Exams 04/10/22 06:00 Completed XR chest 1V portable [id number] Stat Exams 04/08/22 03:37 Completed XR chest 1V portable [id number] Stat Exams 04/14/22 07:18 [place] [id number] Routine Ultrasound 04/08/22 05:21 Completed CV. echo limited [id number] Routine Ultrasound 04/09/22 08:24 Completed US renal BI* [id number] Routine Ultrasound 04/11/22 11:27 Completed Pending at discharge Category Date Time Status ROSI Screen w/ Reflex Routine Lab 04/11/22 14:00 Results Anti-Neutrophil Cytoplasmic AB Routine Lab 04/11/22 14:00 Results Complete Blood Count w/Auto AM LABS Lab 04/17/22 04:00 Ordered Comprehensive Metabolic Panel AM LABS Lab 04/17/22 04:00 Ordered Immunofixation Serum Stat Lab 04/11/22 14:00 Received Magnesium AM LABS Lab 04/17/22 04:00 Ordered NT Pro B Type Natriuretic Pept QAM Lab 04/17/22 06:00 Ordered NT Pro B Type Natriuretic Pept QAM Lab 04/18/22 06:00 Ordered Occult Blood Stool [Immunochemical Fecal OCB] Routine Lab 04/14/22 08:03 Uncollected Phosphorus AM LABS Lab 04/17/22 04:00 Ordered Protein Electrophoresis, 24 HR Routine Lab 04/11/22 11:26 Results Serum Protien Electrophoresis [Total Protein Lab 04/11/22 14:00 Results Electrophoresis] Routine Radiology Impressions Renal Ultrasound 04/11/22 11:27 IMPRESSION: 1. Low normal size RIGHT kidney with mild cortical thinning mid to lower kidney. 2. No obstruction. 3. LEFT kidney and aorta are not visualized due to bowel gas. Chest X-Ray 04/14/22 07:18 IMPRESSION: Trace pulmonary edema. Chest CT 04/15/22 08:29 IMPRESSION: 1. No evidence of mediastinal or AP window mass. 2. Cardiomegaly with dense coronary calcification. 3. Tiny bilateral pleural effusions compressive atelectasis and interstitial thickening in the lung bases likely due to edema. 4. Faint interstitial thickening in the RIGHT upper lobe and RIGHT middle lobe also likely due to edema. 5. A few partially visualized RIGHT hepatic cysts. 6. No other acute findings. Neck CT 04/15/22 08:40 IMPRESSION: 1. Findings suspicious for LEFT vocal cord paralysis. This can be further evaluated with endoscopy. 2. No evidence of supraglottic or glottic mass. 3. No cervical lymphadenopathy. 4. Normal salivary glands. 5. Lung apices are well aerated. 6. RIGHT maxillary sinusitis with air-fluid level. Laboratory Results WBC 9.2 10^3/uL (4.0-10.0) 04/16/22 03:26 RBC 3.13 10^6/uL (4.1-5.3) L 04/16/22 03:26 Hgb 9.7 g/dL (11.7-16.6) L 04/16/22 03:26 Hct 29.2 % (42.0-52.0) L 04/16/22 03:26 MCV 93.3 fl (80-94) 04/16/22 03:26 MCH 31.0 pg (28.0-34.0) 04/16/22 03:26 MCHC 33.2 g/dL (30.0-36.0) 04/16/22 03:26 RDW 13.8 % (12.1-15.1) 04/16/22 03:26 Plt Count 195 10^3/cmm (130-400) 04/16/22 03:26 MPV 12.4 fL (7.4-10.4) H 04/16/22 03:26 Neut % (Auto) 89.3 % 04/16/22 03:26 Lymph % (Auto) 4.5 % 04/16/22 03:26 [place] % (Auto) 5.0 % 04/16/22 03:26 Eos % (Auto) 0.0 % 04/16/22 03:26 Baso % (Auto) 0.1 % 04/16/22 03:26 Neut # (Auto) 8.18 10^3/uL (1.8-7.7) H 04/16/22 03:26 Lymph # (Auto) 0.4 10^3/uL (0.8-4.8) L 04/16/22 03:26 [place] # (Auto) 0.5 10^3/uL (0.2-0.9) 04/16/22 03:26 Eos # (Auto) 0.0 10^3/uL (0.0-0.8) 04/16/22 03:26 Baso # (Auto) 0.0 10^3/uL (0.0-0.1) 04/16/22 03:26 Nucleated RBC % (auto) 0 % 04/16/22 03:26 Nucleated RBCs # 0.0 /100WBC 04/16/22 03:26 PT 13.80 SECONDS (12.1-14.9) 04/08/22 03:39 INR 1.03 (0.8-1.2) 04/08/22 03:39 D-Dimer 1.61 ug/mIFEU (0-0.59) H 04/08/22 03:39 Specimen Type Arterial 04/10/22 05:38 Sample Site Radial, right 04/10/22 05:38 ABG pH 7.38 (7.35-7.45) 04/10/22 05:38 ABG pCO2 33.2 mmHg (35-45) L 04/10/22 05:38 ABG pO2 102.0 mmHg (80.0-100.0) H 04/10/22 05:38 ABG HCO3 19.5 mmol/L (22-26) L 04/10/22 05:38 ABG O2 Saturation 98.5 04/10/22 05:38 ABG Base Excess -4.8 mmol/L (-2.0-2.0) L 04/10/22 05:38 Jae Test Pos 04/10/22 05:38 A-a O2 Gradient 9.4 mmHg (5-10) 04/10/22 05:38 Hematocrit 44.4 % (42-52) 04/10/22 05:38 Hgb O2 Saturation 97.4 % (95-100) 04/10/22 05:38 Carboxyhemoglobin 1.0 %THgb (0.4-20.1) 04/10/22 05:38 Methemoglobin 0.1 % (0.4-1.5) L 04/10/22 05:38 Total Hemoglobin 14.5 g/dL (14-18) 04/10/22 05:38 Sodium 134.0 mmol/L (131-143) 04/10/22 05:38 Potassium 4.1 mmol/L (3.5-5.0) 04/10/22 05:38 Glucose 126.0 mg/dL (70-115) H 04/10/22 05:38 Ionized Calcium 1.1 mmol/L (1.1-1.4) 04/10/22 05:38 O2 Delivery Device Vent 04/10/22 05:38 FiO2 30.0 % 04/10/22 05:38 Tidal Volume 0.50 04/10/22 05:38 PEEP 8.0 cmH20 04/10/22 05:38 Supervisor Mapping ID Yaakov 04/10/22 05:38 Sodium 136 mmol/L (136-145) 04/16/22 03:26 Potassium 4.4 mmol/L (3.5-5.1) 04/16/22 03:26 Chloride 103 mmol/L (98-107) 04/16/22 03:26 Carbon Dioxide 22 mmol/L (22-29) 04/16/22 03:26 Anion Gap 15.4 (5-19) 04/16/22 03:26 BUN 78 mg/dL (8-23) H 04/16/22 03:26 Creatinine 2.1 mg/dL (0.7-1.2) H 04/16/22 03:26 GFR Calculation Not Reportable 04/16/22 03:26 Glucose 132 mg/dL (65-115) H 04/16/22 03:26 POC Glucose 145 mg/dL (70-110) H 04/16/22 10:58 Calculated Osmolality 307 mOsm/kg (285-295) H 04/16/22 03:26 Uric Acid 10.0 mg/dL (3.4-7.0) H 04/11/22 03:39 Calcium 8.5 mg/dL (8.5-10.5) 04/16/22 03:26 Phosphorus 4.1 mg/dL (2.5-4.5) 04/16/22 03:26 Magnesium 3.1 mg/dL (1.7-2.3) H 04/16/22 03:26 Iron 25 ug/dL (59-158) L 04/12/22 02:21 TIBC 296 mcg/dl 04/12/22 02:21 % Saturation 8.4 % (20-50) L 04/12/22 02:21 Unsat Iron Binding 271 ug/dL (112-347) 04/12/22 02:21 Ferritin 66 ng/mL (30-400) 04/12/22 02:21 Total Bilirubin 0.6 mg/dL (0.15-1.2) 04/16/22 03:26 AST 18 U/L (0-40) 04/16/22 03:26 ALT 14 U/L (0-41) 04/16/22 03:26 Alkaline Phosphatase 47 U/L (40-130) 04/16/22 03:26 Creatine Kinase 63 U/L (39-308) 04/12/22 02:21 CK-MB (CK-2) 3.0 ng/mL (0-10.4) 04/12/22 02:21 CK-MB (CK-2) Rel Index % (0.0-5.3) 04/12/22 02:21 Troponin T Gen 5 ng/L 53 ng/L (0-15) H 04/09/22 05:07 Troponin T Baseline 64 ng/L (0-15) H 04/09/22 09:34 Troponin T 120 Minute 89.22 ng/L (0-15) H 04/09/22 11:34 Delta Troponin T 25.22 ABS# (0-10) H* 04/09/22 11:34 Troponin T Hi Sens 6Hr 225.9 ng/L (0-15) H 04/09/22 15:44 Troponin T Hi Sens 6Hr Delta 161.9 ng/L (0-12) H* 04/09/22 15:44 C-Reactive Protein 3.0 mg/L (0.0-4.9) 04/08/22 03:39 NT-Pro-B Natriuret Pep 6642 pg/mL (0-450) H 04/16/22 03:26 Total Protein 5.6 g/dL (6.6-8.7) L 04/16/22 03:26 Albumin 3.6 g/dL (3.5-5.2) 04/16/22 03:26 Globulin 2.0 g/dL (1.3-4.6) 04/16/22 03:26 25-OH Vitamin D Total 37 ng/mL (30-100) 04/12/22 02:21 Procalcitonin 0.05 ng/mL (0-0.5) 04/08/22 03:39 TSH 0.76 uIU/mL (0.27-4.20) 04/11/22 03:39 PTH Intact 181.8 pg/mL (15-65) H 04/12/22 02:21 Calcium (PTH Intact) 8.7 mg/dL (8.5-10.5) 04/12/22 02:21 Urine Color Yellow (Yellow) 04/11/22 12:25 Urine Appearance Cloudy (CLEAR) 04/11/22 12:25 Urine pH 5.5 (5-7) 04/11/22 12:25 Ur Specific [place] 1.015 (1.005-1.030) 04/11/22 12:25 Urine Protein Negative 04/11/22 12:25 Urine Glucose (UA) Negative (Normal) 04/11/22 12:25 Urine Ketones Negative (Negative) 04/11/22 12:25 Urine Blood Large (Negative) A 04/11/22 12:25 Urine Nitrate Negative 04/11/22 12:25 Urine Bilirubin Negative (Negative) 04/11/22 12:25 Urine Urobilinogen 0.2 mg/dL (Negative) 04/11/22 12:25 Ur Leukocyte Esterase Trace (Negative) A 04/11/22 12:25 Urine RBC 40-50 /hpf (0-2) H 04/11/22 12:25 Urine WBC 0-4 /hpf (0-5) H 04/11/22 12:25 Ur Squamous Epith Cells 0-4 /hpf (0-5) H 04/11/22 12:25 Amorphous Sediment 2+ /hpf 04/11/22 12:25 Urine Bacteria 1+ /hpf (NONE) H 04/11/22 12:25 Urine Mucus 1+ /hpf 04/11/22 12:25 U Random Total Protein 9 mg/dL 04/11/22 12:25 Ur Random Sodium 10 mmol/L 04/11/22 12:25 Ur Random Potassium 31 mmol/L 04/11/22 12:25 Ur Random Chloride 14 mmol/L 04/11/22 12:25 Urine Total Volume 1625 mL 04/12/22 12:30 Urine Total Volume 1625 ml 04/12/22 12:30 Urine Creatinine 66 mg/dL (39-259) 04/12/22 12:30 Ur Creatinine 24 Hour 1.01 g/24 h (0.50-2.15) 04/12/22 12:30 Ur Creatinine 24 Hour 1072.5 mg/dL (955-2936) 04/12/22 12:30 Ur Total Protein 24 Hr 92.6 mg/24hr (0-150) 04/12/22 12:30 Ur Total Protein 24 Hr 179 mg/24 h (<150) H 04/12/22 12:30 Protein/Creatinin Ratio 177 mg/g creat (<100) H 04/12/22 12:30 Protein/Creat Ratio 24h 0.177 (<0.100) H 04/12/22 12:30 Urine Total Protein 5.7 mg/dL (0-150) 04/12/22 12:30 ROSI Screen Negative (NEGATIVE) 04/11/22 14:00 Anti-ds DNA IgG Ab <1 IU/mL 04/11/22 14:00 Coronavirus 229E (PCR) Not detected (NOT DETECT) 04/09/22 11:36 Hepatitis C Antibody Non-reactive (Nonreactive) 04/11/22 14:00 SARS-CoV-2 (PCR) Not detected (NOT DETECT) 04/09/22 11:36 SARS-CoV-2 Ag (Rapid) Negative (Negative) 04/08/22 03:59 Anti-Streptolysin O Ab 54 IU/mL (<200) 04/11/22 14:00 Vitals Last Vital Signs Temp 97.5 F L 04/16/22 08:08 Pulse 60 04/16/22 08:08 Resp 16 04/16/22 08:08 BP 112/63 04/16/22 08:08 Pulse Ox 98 04/16/22 08:08 O2 Del Method 04/16/22 08:08 O2 Flow Rate 2 04/15/22 03:26 FiO2 28 04/15/22 00:15 Discharge Plan Discharge Patient Disposition: Home Condition: Stable Prescriptions: New allopurinol 100 mg Tablet 100 mg PO DAILY 30 Days Qty: 30 0RF benzonatate 100 mg Capsule 100 mg PO TID PRN (Reason: Cough) 15 Days Qty: 45 0RF furosemide 40 mg Tablet 40 mg PO DAILY@0800 30 Days Qty: 30 0RF prednisone 20 mg Tablet 40 mg PO DAILY 5 Days Qty: 10 0RF Klor-Con 10 10 mEq tablet extended release 10 meq PO DAILY 30 Days Qty: 30 0RF albuterol sulfate 90 mcg/actuation HFA aerosol inhaler 1 inh inhalation Q6H PRN (Reason: shortness of breath or wheezing) Qty: 8.5 0RF Advair Diskus 250-50 mcg/dose blister with device 1 inh inhalation BID Qty: 60 0RF levofloxacin 750 mg tablet 750 mg PO DAILY 6 Days Qty: 6 0RF Continued levothyroxine [Synthroid] 75 mcg Tablet 75 mcg PO QAM atorvastatin 40 mg tablet 40 mg PO QAM 30 Days Qty: 30 1RF Plavix 75 mg tablet 75 mg PO QAM 30 Days Qty: 30 1RF aspirin 81 mg Tablet,Delayed Release (Dr/Ec) 81 mg PO QAM 30 Days Qty: 30 0RF carvedilol 3.125 mg tablet 3.125 mg PO BID 30 Days Qty: 60 3RF Nitrostat 0.4 mg tablet, sublingual 0.4 mg sublingual Q5M PRN (Reason: chest pain) 3 Days Qty: 30 3RF Rx Instructions: do not exceed 3 doses per episode Discontinued furosemide 40 mg tablet 60 mg PO DIRECTED Qty: 135 3RF Rx Instructions: 40mg in AM and 20mg In afternoon spironolactone 25 mg tablet 25 mg PO QAM Qty: 90 3RF Discharge Orders: Discharge Order (Routine); Ordered 04/16/22 Ordered By: Jose Mack Referrals: AiderAdriel MD [Physician] - Andrea Hyman MD [Referring] - 4-7 days (ckd) Jose Rodriguez MD [Physician] - 04/29/22 1:00 pm Jhonathan Jara M.D [Physician] - 1 month Gregorio Cunningham DO [Primary Care Provider] - 04/22/22 12:00 pm Discharge Diet: Cardiac Discharge Activity: Resume usual activity Patient Instructions: Furosemide (By mouth), Albuterol (By breathing) (ProAir, AccuNeb, Proventil, Proventil..., Prednisone (By mouth), Potassium Chloride (By mouth), Levofloxacin (By mouth), Fluticasone/Salmeterol (By breathing), Acute Kidney Injury (DC), COPD (Chronic Obstructive Pulmonary Disease) (DC), Opioid Safety Activity Restrictions/Additional Instructions: - Please stop smoking -Please take steroids and inhalers as prescribed -Please follow-up with pulmonary as scheduled -Please follow-up with cardiology as scheduled, if you have chest pain go to the emergency room -Take aspirin, Plavix as prescribed -Take antibiotics as prescribed, if you have ankle pain please stop taking medication go to the emergency room -If you have worsening shortness of breath go to the emergency room -Follow-up with Dr. Rodriguez -Please follow-up with primary care provider for sleep study -Please restrict fluid intake to between 1.5 to 2 L -If you develop lower extremity swelling or worsening shortness of breath take an extra dose of Lasix 40 mg with potassium for 3 days, if your lower extremity swelling or shortness of breath persists see primary care or go to the emergency room Discharge Attestations Time Spent in Discharge Care*: less than 30 min Quality Metrics Clinical Quality Measures [ No reported AMI, CVA or VTE this stay] Coding Level of Care Code Acute Chg FW DC note Diagnoses COPD exacerbation J44.1 Congestive heart failure I50.9 Acute respiratory failure with hypoxia J96.01 LV dysfunction I51.9 Non-ST elevation AR (NSTEMI) I21.4 HTN (hypertension) I10 Hypertension type: essential hypertension CAD (coronary artery disease) I25.10 Coronary Disease-Associated Artery/Lesion type: [place] artery [place] vs. transplanted heart: [place] heart Associated angina: angina presence unspecified Ischemic cardiomyopathy I25.5
[2022-04-16 14:29] LABS: ALBUMIN 100 %; ALPHA-1-GLOBULINS 0 %; ALPHA-2-GLOBULINS 0 %; BETA GLOBULINS 0 %; GAMMA GLOBULINS 0 %
[2022-04-16 15:26] LABS: ALBUMIN 3.8 g/dL (3.8-4.8); ALPHA 1 GLOBULIN 0.4 g/dL (0.2-0.3); ALPHA 2 GLOBULIN 0.9 g/dL (0.5-0.9); BETA 1 GLOBULIN 0.4 g/dL (0.4-0.6); BETA 2 GLOBULIN 0.3 g/dL (0.2-0.5); GAMMA GLOBULIN 0.8 g/dL (0.8-1.7)
[2022-04-16 16:19] LABS: ANCA Screen NEGATIVE (NEGATIVE)
== END 2022-04-16 12:30 | disposition home or self-care (01) | DRG 208 ==
LOC: ER 04:41 → ICU 05:48 → MEDSURG 18:09 → ICU 04-09 10:54 → MEDSURG 04-16 07:19
PROVIDERS: Internal Medicine; Internal Medicine Nephrology; Admitting Provider Family Medicine; Emergency Provider Emergency Medicine; PCP Electrodiagnostic Medicine; Visit Provider Family Medicine
DX: J96.02 Acute respiratory failure with hypercapnia (principal); I21.4 Non-ST elevation (NSTEMI) myocardial infarction; J18.9 Pneumonia, unspecified organism; I50.23 Acute on chronic systolic (congestive) heart failure; A37.01 Whooping cough due to Bordetella pertussis with pneumonia; J44.1 Chronic obstructive pulmonary disease with (acute) exacerbation; J44.0 Chronic obstructive pulmonary disease with (acute) lower respiratory infection; I13.0 Hypertensive heart and chronic kidney disease with heart failure and stage 1 through stage 4 chronic kidney disease, or unspecified chronic kidney disease; N17.9 Acute kidney failure, unspecified; E87.29 Other acidosis; J96.01 Acute respiratory failure with hypoxia; F17.210 Nicotine dependence, cigarettes, uncomplicated; I25.119 Atherosclerotic heart disease of native coronary artery with unspecified angina pectoris; N18.32 Chronic kidney disease, stage 3b; Z95.810 Presence of automatic (implantable) cardiac defibrillator; E78.5 Hyperlipidemia, unspecified; E03.9 Hypothyroidism, unspecified; I25.5 Ischemic cardiomyopathy; F40.240 Claustrophobia; I35.0 Nonrheumatic aortic (valve) stenosis; Z85.828 Personal history of other malignant neoplasm of skin; Z79.82 Long term (current) use of aspirin; Z79.02 Long term (current) use of antithrombotics/antiplatelets; B96.89 Other specified bacterial agents as the cause of diseases classified elsewhere; J01.00 Acute maxillary sinusitis, unspecified; D63.1 Anemia in chronic kidney disease
CPT/HCPCS: 12345; 36415; 36416; 36600; 51702; 70490; 71045; 71250; 76770; 80048; 80051; 80053; 81001; 82306; 82310; 82330; 82436; 82550; 82553; 82570; 82728; 82803; 82805; 82962; 83540; 83550; 83735; 83880; 83970; 84100; 84133; 84145; 84155; 84156; 84165; 84166; 84300; 84443; 84484; 84550; 85025; 85378; 85610; 86036; 86038; 86060; 86140; 86225; 86334; 86803; 87070; 87086; 87186; 87205; 87426; 87635; 92523; 92524; 92610; 93005; 93308; 93970; 94002; 94003; 94640; 94660; 94799; 96372; 96374; 96375; 97110; 97116; 97162; 99285; 99291; C9113; J0330; J0696; J1650; J1815; J1940; J1956; J2250; J2260; J2405; J2543; J2704; J2916; J2920; J2930; J3010; J3490; J7512; J7611; J7626; J7644; Q3014

== ENCOUNTER → 2022-04-23 09:17 | Outpatient (BNVA) | payer MEDICARE, SELFPAY | PROVIDERS: PCP Electrodiagnostic Medicine; Visit Provider Nurse Practitioner Family | DX: I13.0 Hypertensive heart and chronic kidney disease with heart failure and stage 1 through stage 4 chronic kidney disease, or unspecified chronic kidney disease (principal); N18.9 Chronic kidney disease, unspecified; I50.9 Heart failure, unspecified; F17.210 Nicotine dependence, cigarettes, uncomplicated; I25.10 Atherosclerotic heart disease of native coronary artery without angina pectoris; Z95.810 Presence of automatic (implantable) cardiac defibrillator | CPT/HCPCS: 99214 ==

== ENCOUNTER 2022-05-27 18:06 | Observation (INO) | payer MEDICARE, SELFPAY ==
[2022-05-27] VITALS (10 sets, daily range): BP systolic 106–145; BP diastolic 62–80; PULSE 68–114; RESP 20–28; TEMP 36.5; O2SAT 93–100
--- NOTE | 2022-05-27 18:14 | ECG_ITS ---
[facility] Test Date: 2022-05-27 Pat Name: Juarez Delgado Department: Room: Gender: Male Emergency Room Physician Assistant: : [id number] Requested By: Jovany Huerta Order Number: [id number] Christal MD: Laura Collado M.D. Measurements Intervals [place] Rate: 94 P: 74 AL: 233 QRS: -73 QRSD: 169 T: 105 QT: 387 QTc: 484 Interpretive Statements ELECTRONIC VENTRICULAR PACEMAKER-A sensed, V paced rhythm ABNORMAL RHYTHM ECG Compared to ECG 04/14/2022 10:29:17 No significant changes Electronically Signed On 05-28-2022 7:14:57 [employer] SUPERINTENDENT by Laura Collado M.D. [email or web address]
--- NOTE | 2022-05-27 18:14 | XRR_ITS ---
PROCEDURE INFORMATION: Exam: XR Chest Exam date and time: 05/27/2022 7:31 PM Age: 76 years old Clinical indication: Shortness of breath; Prior surgery; Surgery date: 6+ months; Additional info: SOB TECHNIQUE: Imaging protocol: Radiologic exam of the chest. Views: 1 view. COMPARISON: CT chest [facility] [place] [id number] 04/15/2022 1:19 PM FINDINGS: Tubes, catheters and devices: Left-sided pacemaker. Lungs: Interstitial edema. Right hilar to lower lobe atelectasis versus infiltrate. Pleural spaces: Trace bilateral pleural effusions. Heart/Mediastinum: Cardiomegaly. Bones/joints: Unremarkable. XR/XR chest 1V portable [id number] IMPRESSION: 1. Cardiomegaly. 2. Interstitial edema. 3. Right hilar to lower lobe atelectasis versus infiltrate. 4. Trace bilateral pleural effusions. 5. Left-sided pacemaker.
--- NOTE | 2022-05-27 18:21 | W.ED.SOB ---
HPI - SOB/Dyspnea General: Chief Complaint: Shortness of Breath/Dyspnea Stated Complaint: sob Time Seen by Provider: 05/27/22 18:21 History of Present Illness: HPI Narrative: Mr Delgado is a 76-year-old gentleman with history of CAD, hypertension, hyperlipidemia, ischemic cardiomyopathy, LV dysfunction, CHF, COPD, CKD presenting to the emergency department due to shortness of breath. Onset of symptoms was sudden approximately 30 minutes prior to arrival. He reports similar episodes in the past associated with flash pulmonary edema. Prior hospitalization for pulmonary edema did require intubation. Intensity of symptoms is severe. Course has persisted. Denies associated infectious symptoms. No other specific changes in health, exacerbating, or alleviating factors identified. Onset (ago): minute(s) Timing: constant Severity: severe Exacerbating factors: exertion Relieving factors: nothing Known history of: COPD, congestive heart failure and other Review of Systems General: Reports: 10 or more systems reviewed and unremarkable except in HPI and below PFSH ED PFSH: Medical History Aortic stenosis Echo 10/01 with mild aortic stenosis, MEGHANA 1.6 cm2, mean gradient 11.6 mmHg, peak velocity 2.4 m/sec CAD (coronary artery disease) Chronic kidney disease COPD (chronic obstructive pulmonary disease) Erectile dysfunction HLD (hyperlipidemia) HTN (hypertension) Hypothyroidism Ischemic cardiomyopathy Squamous cell carcinoma skin of arm Tobacco abuse Surgical History AICD (automatic cardioverter/defibrillator) present Pacemaker Medtronic S/P PTCA (percutaneous transluminal coronary angioplasty) August 2019 Family History Brother CAD (coronary artery disease) Social History Smoking and tobacco status: current every day smoker cigarettes Packs smoked per day: 1 Years cigarettes smoked: 50 Alcohol intake: current Alcohol intake frequency: few times a month Physical Exam Const: COMMON NORMALS: alert GENERAL APPEARANCE: cooperative, well developed, in distress and ill appearing HENMT: COMMON NORMALS: normocephalic and atraumatic HEAD & SCALP: normocephalic and atraumatic THROAT: posterior oropharynx normal Eye: COMMON NORMALS: conjunctivae normal CONJUNCTIVA: Yes conjunctivae normal SCLERA: sclerae normal Neck/C-Spine: COMMON NORMALS: supple GENERAL: Yes trachea midline Resp: EFFORT & INSPECTION: Yes tachypneic and Yes respiratory distress AUSCULTATION: crackles Cardio: COMMON NORMALS: regular rate and regular rhythm RATE: regular rate RHYTHM: regular rhythm GI: COMMON NORMALS: Soft to palpation PALPATION: Yes Soft to palpation and No Tenderness to palpation present (GI) Extremity: GENERAL: Yes normal exam except as noted and No edema Neuro: COMMON NORMALS: moves all extremities SENSORIUM/ORIENTATION: Yes alert and No Orientation impaired Psych: COMMON NORMALS: mental status grossly normal and Normal thought process present THOUGHT PROCESS: Normal thought process present Course Vital Signs: Vital signs: Vital Signs Temperature 97.6 F 05/29/22 04:36 Pulse Rate 76 05/29/22 08:00 Respiratory Rate 16 05/29/22 08:00 Blood Pressure 93/45 05/29/22 11:46 Pulse Oximetry 100 05/29/22 09:12 Oxygen Delivery Me thod 05/29/22 08:00 Oxygen Flow Rate 4 05/28/22 08:36 Fraction of Inspir ed Oxygen 40 05/29/22 08:00 MDM - SOB/Dyspnea Medical Decision Making 76-year-old gentleman respiratory distress similar to prior episodes of pulmonary edema. Exam as above. BiPAP ordered. EKG shows ventricularly paced rhythm, first-degree AV block, interventricular conduction delay Labs with mild leukocytosis and macrocytic anemia. Metabolic panel with no acute electrolyte derangement to explain symptoms. Intermediate 2-hour delta troponin. BNP elevated. Chest x-ray consistent with pulmonary edema, no pneumothorax. Patient treated in ED with diuretic and morphine for anxiolysis regarding BiPAP. Most likely cause of patient's symptoms is respiratory distress secondary to pulmonary edema. The results of ED evaluation were discussed with the patient including plan for admission due to requirement for level of care not available if discharged to prevent significant worsening/deterioration. Patient agreeable with plan. Discussed with hospitalist service who was agreeable to admit patient. Medical Records I reviewed the patient's medical records. Lab Data I reviewed the patient's lab results. 05/27/22 18:25 05/27/22 18:25 Labs/Radiology: Radiology Impressions Chest X-Ray 05/27/22 18:14 IMPRESSION: 1. Cardiomegaly. 2. Interstitial edema. 3. Right hilar to lower lobe atelectasis versus infiltrate. 4. Trace bilateral pleural effusions. 5. Left-sided pacemaker. Laboratory Results WBC 12.2 10^3/uL (4.0-10.0) H 05/27/22 18:25 RBC 3.42 10^6/uL (4.1-5.3) L 05/27/22 18:25 Hgb 10.2 g/dL (11.7-16.6) L 05/27/22 18:25 Hct 32.5 % (42.0-52.0) L 05/27/22 18:25 MCV 95.0 fl (80-94) H 05/27/22 18: MCH 29.8 pg (28.0-34.0) 05/27/22 18: MCHC 31.4 g/dL (30.0-36.0) 05/27/22 18: RDW 14.8 % (12.1-15.1) 05/27/22 18: Plt Count 318 10^3/cmm (130-400) 05/27/22 18:25 MPV 11.4 fL (7.4-10.4) H 05/27/22 18:25 Neut % (Auto) 62.7 % 05/27/22 18: Lymph % (Auto) 26.6 % 05/27/22 18:25 [place] % (Auto) 4.3 % 05/27/22 18:25 Eos % (Auto) 4.8 % 05/27/22 18: Baso % (Auto) 1.2 % 05/27/22 18:25 Neut # (Auto) 7.63 10^3/uL (1.8-7.7) 05/27/22 18: Lymph # (Auto) 3.2 10^3/uL (0.8-4.8) 05/27/22 18:25 [place] # (Auto) 0.5 10^3/uL (0.2-0.9) 05/27/22 18:25 Eos # (Auto) 0.6 10^3/uL (0.0-0.8) 05/27/22 18: Baso # (Auto) 0.1 10^3/uL (0.0-0.1) 05/27/22 18:25 Nucleated RBC % (auto) 0 % 05/27/22 18: Nucleated RBCs # 0.0 /100WBC 05/27/22 18:25 Specimen Type Arterial 05/27/22 18:31 Sample Site Radial, right 05/27/22 18:31 ABG pH 7.43 (7.35-7.45) 05/27/22 18: ABG pCO2 34.9 mmHg (35-45) L 05/27/22 18: ABG pO2 88.6 mmHg (80.0-100.0) 05/27/22 18: ABG HCO3 23.3 mmol/L (22-26) 05/27/22 18: ABG O2 Saturation 98.0 05/27/22 18: ABG Base Excess -0.7 mmol/L (-2.0-2.0) 05/27/22 18: Jae Test Pos 05/27/22 18:31 A-a O2 Gradient 19.9 mmHg (5-10) H 05/27/22 18:31 Hematocrit 28.3 % (42-52) L 05/27/22 18:31 Hgb O2 Saturation 95.9 % (95-100) 05/27/22 18:31 Carboxyhemoglobin 1.6 %THgb (0.4-20.1) 05/27/22 18:31 Methemoglobin 0.6 % (0.4-1.5) 05/27/22 18:31 Total Hemoglobin 9.2 g/dL (14-18) L 05/27/22 18:31 Sodium 137.0 mmol/L (131-143) 05/27/22 18: Potassium 3.9 mmol/L (3.5-5.0) 05/27/22 18: Glucose 122.0 mg/dL (70-115) H 05/27/22 18: Ionized Calcium 1.1 mmol/L (1.1-1.4) 05/27/22 18:31 O2 Delivery Device Bipap 05/27/22 18:31 FiO2 40.0 % 05/27/22 18:31 Corporate Strategist ID [email or web address] 05/27/22 18:31 Sodium 133 mmol/L (136-145) L 05/27/22 18:25 Potassium 4.0 mmol/L (3.5-5.1) 05/27/22 18:25 Chloride 97 mmol/L (98-107) L 05/27/22 18:25 Carbon Dioxide 24 mmol/L (22-29) 05/27/22 18:25 Anion Gap 16.0 (5-19) 05/27/22 18:25 BUN 23 mg/dL (8-23) 05/27/22 18:25 Creatinine 1.6 mg/dL (0.7-1.2) H 05/27/22 18:25 GFR Calculation Not Reportable 05/27/22 18:25 Glucose 170 mg/dL (65-115) H 05/27/22 18:25 Calculated Osmolality 284 mOsm/kg (285-295) L 05/27/22 18:25 Calcium 9.4 mg/dL (8.5-10.5) 05/27/22 18:25 Total Bilirubin 0.5 mg/dL (0.15-1.2) 05/27/22 18:25 AST 16 U/L (0-40) 05/27/22 18:25 ALT 8 U/L (0-41) 05/27/22 18:25 Alkaline Phosphatase 97 U/L (40-130) 05/27/22 18:25 Troponin T Baseline 56 ng/L (0-15) H 05/27/22 18:25 Troponin T 120 Minute 61.01 ng/L (0-15) H 05/27/22 20:27 Delta Troponin T 5.01 ABS# (0-10) 05/27/22 20:27 NT-Pro-B Natriuret Pep 3581 pg/mL (0-450) H 05/27/22 18:25 Total Protein 7.5 g/dL (6.6-8.7) 05/27/22 18:25 Albumin 4.3 g/dL (3.5-5.2) 05/27/22 18:25 Globulin 3.2 g/dL (1.3-4.6) 05/27/22 18:25 Procalcitonin 0.07 ng/mL (0-0.5) 05/27/22 18:25 Critical Care Time Critical Care Time: Critical Care Time: Yes Total Critical Care Time: 40 Attestation: Due to a high probability of clinically significant, possibly life threatening deterioration, the patient required my highest level of attention and preparedness to intervene emergently and I personally spent this critical care time directly and personally managing the patient. This critical care time included obtaining a history; examining the patient; pulse oximetry; ordering and review of laboratory and imaging studies; arranging urgent treatment with development of a management plan; evaluation of patient's response to treatment; frequent reassessment; and, discussions with other providers as applicable. It was exclusive of separately billable procedures. Primary system involved is cardiopulmonary Discharge Plan Discharge Patient Disposition: Admitted As Inpatient Admit Provider: Lucrecia Cowart Clinical Impression: Pulmonary edema, Acute respiratory distress Condition: Stable Discharge Diet: Cardiac Coding Level of Care Code ED Bung Remover for Kuldeep Fwd Exam Comprehensive
[2022-05-27 18:40] LABS: Basophils # 0.1 10^3/uL (0.0-0.1); Basophils % 1.2 %; Eosinophils # 0.6 10^3/uL (0.0-0.8); Eosinophils % 4.8 %; Hematocrit 32.5 % (42.0-52.0); Hemoglobin 10.2 g/dL (11.7-16.6); Lymphocytes # 3.2 10^3/uL (0.8-4.8); Lymphocytes % 26.6 %; Mean Corpuscular HGB Conc 31.4 g/dL (30.0-36.0); Mean Corpuscular Hemoglobin 29.8 pg (28.0-34.0); Mean Platelet Volume 11.4 fL (7.4-10.4); Monocytes # 0.5 10^3/uL (0.2-0.9); Monocytes % 4.3 %; Neutrophils # 7.63 10^3/uL (1.8-7.7); Neutrophils % 62.7 %; Nucleated Red Blood Cells % 0 %; Platelet Count 318 10^3/cmm (130-400); Red Blood Count 3.42 10^6/uL (4.1-5.3); Red Cell Distribution Width 14.8 % (12.1-15.1); White Blood Count 12.2 10^3/uL (4.0-10.0)
[2022-05-27] MEDS: FUROsemide 10 mg/mL SDV 4mL 40 MG IVP (18:43)
[2022-05-27] MEDS: morphine 4 mg/mL SDV 1 mL IVP (18:43)
[2022-05-27 19:11] LABS: Troponin(5th) Baseline 56 ng/L (0-15)
[2022-05-27 19:19] LABS: Alanine Aminotransferase 8 U/L (0-41); Albumin Level 4.3 g/dL (3.5-5.2); Alkaline Phosphatase 97 U/L (40-130); Aspartate Amino Transferase 16 U/L (0-40); Blood Urea Nitrogen 23 mg/dL (8-23); Calcium 9.4 mg/dL (8.5-10.5); Carbon Dioxide 24 mmol/L (22-29); Chloride 97 mmol/L (98-107); Globulin 3.2 g/dL (1.3-4.6); Glucose 170 mg/dL (65-115); NT Pro B Type Natriuretic Pept 3581 pg/mL (0-450); Osmolality Calculated 284 mOsm/kg (285-295); Sodium 133 mmol/L (136-145); Total Bilirubin 0.5 mg/dL (0.15-1.2); Total Protein 7.5 g/dL (6.6-8.7)
[2022-05-27 19:58] LABS: Procalcitonin 0.07 ng/mL (0-0.5)
--- NOTE | 2022-05-27 20:38 | ECG_ITS ---
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
[2022-05-27 20:59] LABS: ABG PCO2 34.9 mmHg (35-45); ABG PH Result 7.43 (7.35-7.45); Alveolar-Arterial Oxygen Gradi 19.9 mmHg (5-10); Arterial Blood Gas Hematocrit 28.3 % (42-52); Base Excess ABG -0.7 mmol/L (-2.0-2.0); Blood Gas Allen Test Pos; Blood Gas Sample Site Radial, right; Blood Gas Sample Type Arterial; Carboxyhemoglobin 1.6 %THgb (0.4-20.1); HCO3 ABG 23.3 mmol/L (22-26); HGB O2 Sat 95.9 % (95-100); Ionized Calcium Level - ABG 1.1 mmol/L (1.1-1.4); Methemoglobin 0.6 % (0.4-1.5); Oxygen Device BIPAP; PO2 ABG 88.6 mmHg (80.0-100.0); Potassium Level - ABG 3.9 mmol/L (3.5-5.0); Total Hemoglobin 9.2 g/dL (14-18)
--- NOTE | 2022-05-27 20:59 | PC.NURSE ---
Gave report to CSU Hilary
[2022-05-27 21:29] LABS: Troponin 5 2HR 61.01 ng/L (0-15)
[2022-05-27 21:34] LABS: Troponin 5 2HR Delta 5.01 ABS# (0-10)
[2022-05-27] MEDS: ondansetron 2 mg/ML SDV 2 mL 4 MG IVP (22:57)
--- NOTE | 2022-05-27 23:18 | PM.HP ---
Providers/Chief Complaint Admitting Physician: Lucrecia Cowart MD Primary Care Provider: Gregorio Cunningham DO Chief Complaint: sob History of Present Illness Juarez Delgado is a 76 year old male COPD, smoker, CAD, CHF, history of ICD placement, hyperlipidemia, hypothyroidism, last EF 20 to 25%, ischemic cardiomyopathy who presents [facility] for shortness of breath.? He was recently admitted here in April at which time he had required intubation mechanical ventilation for a diagnosis of acute hypoxemic respiratory failure and had needed IV steroids and diuretic therapy at the time. He had been assessed by cardiology during that time and was advised to undergo a stress test, however patient states that he did not feel this would be of any benefit. He does not recall if her stress test was scheduled as an outpatient. He was discharged on Lasix 40 mg oral every day which she has been taking. Yesterday he doubled up on his Lasix after he started noticing increased dyspnea. He states that he has had nonischemic cardiomyopathy for several years, as of last year his EF dropped down to as low as 30 to 35%. There was plans to perform cardiac catheterization at some point however this was deferred in view of his CKD and elevated creatinine. Currently he presents with 3 to 4 days of worsening dyspnea. States that he feels he has some phlegm but is unable to expectorate. Denies any fever. Denies needing more inhalers than usual. He is currently requiring 3 L/min supplemental oxygen. When he presented overnight he was noted to be in significant respiratory distress and was placed on BiPAP in the emergency room. He feels symptomatically improved after receiving 40 mg of IV Lasix and being on the BiPAP. Review of Systems General: Reports: 10 or more systems reviewed and unremarkable except in HPI and below Const: Denies: fever(s), chills or body aches Eyes: Denies: change in vision, blurry vision or photophobia ENMT: Reports: hoarseness; Denies: throat pain, enlarged tonsils, odynophagia or nasal congestion Card: Denies: chest pain, palpitations, irregular heart rhythm, edema, swelling of feet/ankles, lightheadedness, pre-syncope, dyspnea on exertion or orthopnea Resp: Denies: dyspnea, productive cough, non-productive cough, wheezing, stridor, pain on inspiration, change in phlegm color, hemoptysis or chest congestion GI: Denies: abdominal pain, nausea, vomiting, hematemesis, coffee ground emesis, dysphagia, heartburn, diarrhea, constipation, GI cramping, change in stool character, hematochezia or melena : Denies: flank pain, dysuria, urinary frequency, urinary urgency, urinary hesitancy or hematuria Musc: Denies: neck pain, back pain, extremity pain, joint swelling, joint warmth or deformity Neuro: Denies: headache(s), numbness in extremities, weakness in extremities, sensory changes, difficulty walking, frequent falls, dizziness, vertigo, behavioral changes, Slurred speech present or seizure-like activity Psych: Denies: anxiety, depression, suicidal ideation or homicidal ideation Endo: Denies: polyuria, polydipsia, tired all the time, cold intolerance or hot flashes Tip/Lymph: Denies: easy bruising or easy bleeding Medications/Allergies Home Medications Medication Instructions Recorded Confirmed Last Taken Type levothyroxine 75 mcg tablet 75 mcg PO QAM 08/25/19 05/27/22 05/27/22 History (Synthroid) aspirin 81 mg tablet,delayed 81 mg PO QAM 30 days #30 tabs 04/16/22 05/27/22 05/27/22 Rx release carvedilol 3.125 mg tablet 3.125 mg PO BID 30 days #60 tabs 04/16/22 05/27/22 05/27/22 Rx clopidogrel 75 mg tablet (Plavix) 75 mg PO QAM 30 days #30 tabs 04/16/22 05/27/22 05/27/22 Rx nitroglycerin 0.4 mg sublingual 0.4 mg sublingual Q5M PRN chest 04/16/22 05/27/22 01/11/22 Rx tablet (Nitrostat) pain 3 days #30 tabs atorvastatin 40 mg tablet 40 mg PO QAM #90 tabs 04/25/22 05/27/22 05/27/22 Rx furosemide 40 mg tablet 40 mg PO DAILY@0800 #90 tabs 05/07/22 05/27/22 05/27/22 Rx magnesium 200 mg tablet 400 mg PO DAILY 05/27/22 05/27/22 05/27/22 History Allergies Allergy/AdvReac Type Severity Reaction Status Date / Time No Known Allergies Allergy Verified 04/23/22 08:07 PFSH Acute PFSH: Medical History Aortic stenosis Echo 10/01 with mild aortic stenosis, MEGHANA 1.6 cm2, mean gradient 11.6 mmHg, peak velocity 2.4 m/sec CAD (coronary artery disease) Chronic kidney disease COPD (chronic obstructive pulmonary disease) Erectile dysfunction HLD (hyperlipidemia) HTN (hypertension) Hypothyroidism Ischemic cardiomyopathy Squamous cell carcinoma skin of arm Tobacco abuse Surgical History AICD (automatic cardioverter/defibrillator) present Pacemaker Medtronic S/P PTCA (percutaneous transluminal coronary angioplasty) August 2019 Family History Brother CAD (coronary artery disease) Social History Smoking and tobacco status: current every day smoker cigarettes Packs smoked per day: 1 Years cigarettes smoked: 50 Alcohol intake: current Alcohol intake frequency: few times a month Vitals/I&O/Wt Last Vital Signs Temp 97.7 F 05/27/22 18:14 Pulse 71 05/27/22 22:36 Resp 22 H 05/27/22 20:21 BP 106/67 05/27/22 20:45 Pulse Ox 94 05/27/22 22:36 O2 Del Method 05/27/22 21:09 FiO2 40 05/27/22 22:36 Weight last 48 hrs Weight 76.022 kg Physical Exam Narrative: General: No acute distress, AO x3 HEENT: PERRLA, pupils bilaterally equal and reactive, pallors not present Chest: B/L coarse crcakles CVS: S1-S2 regular, no murmurs, no tachycardia, no gallops, no rubs Abdomen: Soft, nontender, no organomegaly, bowel sounds present Neuro: No focal deficits, no facial deformity, AO x3, power 5/5 in all limbs Extremities: 1+ edema B/L lower extremities Data : 05/28/22 01:05 05/28/22 01:05 Other Labs: Radiology Impressions Chest X-Ray 05/27/22 18:14 IMPRESSION: 1. Cardiomegaly. 2. Interstitial edema. 3. Right hilar to lower lobe atelectasis versus infiltrate. 4. Trace bilateral pleural effusions. 5. Left-sided pacemaker. Laboratory Results WBC 11.9 10^3/uL (4.0-10.0) H 05/28/22 01:05 RBC 2.85 10^6/uL (4.1-5.3) L 05/28/22 01:05 Hgb 8.5 g/dL (11.7-16.6) L 05/28/22 01:05 Hct 26.6 % (42.0-52.0) L 05/28/22 01:05 MCV 93.3 fl (80-94) 05/28/22 01:05 MCH 29.8 pg (28.0-34.0) 05/28/22 01:05 MCHC 32.0 g/dL (30.0-36.0) 05/28/22 01:05 RDW 14.9 % (12.1-15.1) 05/28/22 01:05 Plt Count 227 10^3/cmm (130-400) 05/28/22 01:05 MPV 11.4 fL (7.4-10.4) H 05/28/22 01:05 Neut % (Auto) 85.5 % 05/28/22 01:05 Lymph % (Auto) 8.1 % 05/28/22 01:05 [place] % (Auto) 5.1 % 05/28/22 01:05 Eos % (Auto) 0.3 % 05/28/22 01:05 Baso % (Auto) 0.5 % 05/28/22 01:05 Neut # (Auto) 10.19 10^3/uL (1.8-7.7) H 05/28/22 01:05 Lymph # (Auto) 1.0 10^3/uL (0.8-4.8) 05/28/22 01:05 [place] # (Auto) 0.6 10^3/uL (0.2-0.9) 05/28/22 01:05 Eos # (Auto) 0.0 10^3/uL (0.0-0.8) 05/28/22 01:05 Baso # (Auto) 0.1 10^3/uL (0.0-0.1) 05/28/22 01:05 Nucleated RBC % (auto) 0 % 05/28/22 01:05 Nucleated RBCs # 0.0 /100WBC 05/28/22 01:05 Specimen Type Arterial 05/27/22 18:31 Sample Site Radial, right 05/27/22 18:31 ABG pH 7.43 (7.35-7.45) 05/27/22 18:31 ABG pCO2 34.9 mmHg (35-45) L 05/27/22 18: ABG pO2 88.6 mmHg (80.0-100.0) 05/27/22 18:31 ABG HCO3 23.3 mmol/L (22-26) 05/27/22 18: ABG O2 Saturation 98.0 05/27/22 18:31 ABG Base Excess -0.7 mmol/L (-2.0-2.0) 05/27/22 18:31 Jae Test Pos 05/27/22 18:31 A-a O2 Gradient 19.9 mmHg (5-10) H 05/27/22 18:31 Hematocrit 28.3 % (42-52) L 05/27/22 18:31 Hgb O2 Saturation 95.9 % (95-100) 05/27/22 18:31 Carboxyhemoglobin 1.6 %THgb (0.4-20.1) 05/27/22 18:31 Methemoglobin 0.6 % (0.4-1.5) 05/27/22 18:31 Total Hemoglobin 9.2 g/dL (14-18) L 05/27/22 18:31 Sodium 137.0 mmol/L (131-143) 05/27/22 18:31 Potassium 3.9 mmol/L (3.5-5.0) 05/27/22 18:31 Glucose 122.0 mg/dL (70-115) H 05/27/22 18:31 Ionized Calcium 1.1 mmol/L (1.1-1.4) 05/27/22 18:31 O2 Delivery Device Bipap 05/27/22 18:31 FiO2 40.0 % 05/27/22 18:31 Vascular Manager ID [email or web address] 05/27/22 18:31 Sodium 135 mmol/L (136-145) L 05/28/22 01:05 Potassium 4.3 mmol/L (3.5-5.1) 05/28/22 01:05 Chloride 102 mmol/L (98-107) 05/28/22 01:05 Carbon Dioxide 21 mmol/L (22-29) L 05/28/22 01:05 Anion Gap 16.3 (5-19) 05/28/22 01:05 BUN 25 mg/dL (8-23) H 05/28/22 01:05 Creatinine 1.6 mg/dL (0.7-1.2) H 05/28/22 01:05 GFR Calculation Not Reportable 05/28/22 01:05 Glucose 111 mg/dL (65-115) 05/28/22 01:05 Calculated Osmolality 285 mOsm/kg (285-295) 05/28/22 01:05 Calcium 8.7 mg/dL (8.5-10.5) 05/28/22 01:05 Magnesium 2.6 mg/dL (1.7-2.3) H 05/28/22 01:05 Total Bilirubin 0.4 mg/dL (0.15-1.2) 05/28/22 01:05 AST 14 U/L (0-40) 05/28/22 01:05 ALT 6 U/L (0-41) 05/28/22 01:05 Alkaline Phosphatase 75 U/L (40-130) 05/28/22 01:05 Troponin T Baseline 56 ng/L (0-15) H 05/27/22 18:25 Troponin T 120 Minute 61.01 ng/L (0-15) H 05/27/22 20:27 Delta Troponin T 5.01 ABS# (0-10) 05/27/22 20:27 Troponin T Hi Sens 6Hr 87.66 ng/L (0-15) H 05/28/22 01:05 Troponin T Hi Sens 6Hr Delta 31.66 ng/L (0-12) H* 05/28/22 01:05 NT-Pro-B Natriuret Pep 3581 pg/mL (0-450) H 05/27/22 18:25 Total Protein 5.9 g/dL (6.6-8.7) L D 05/28/22 01:05 Albumin 3.4 g/dL (3.5-5.2) L 05/28/22 01:05 Globulin 2.5 g/dL (1.3-4.6) 05/28/22 01:05 Procalcitonin 0.07 ng/mL (0-0.5) 05/27/22 18:25 A&P Assessment and plan (1) Congestive heart failure: (2) Pulmonary edema: (3) Acute respiratory distress: (4) Ischemic cardiomyopathy: Plan 76-year-old male with nonischemic cardiomyopathy and systolic heart failure presenting today with 3 to 4 days of worsening dyspnea on rest and exertion. Given bilateral infiltrates on his chest x-ray, elevated BNP, lower extremity edema, overall clinical picture is compatible with acute on chronic systolic heart failure exacerbation. Lasix 40 mg IV every 12 hours Closely monitor his renal function and urine output and titrate Lasix as needed. Last echocardiogram from March 2022 showed LV systolic function severely reduced with EF of 20 to 25%. Appears patient was recommended to undergo stress test on a recent admission, however he states that there was also plans to do a cardiac catheterization pending improvement of his renal function. Currently he denies any chest pain. EKG currently shows paced rhythm. He has an AICD in place. He has elevated troponins at baseline of 56, in March 2022 this was at 64. 2-hour troponin is at 61 with a delta of 5. Suspect that troponin leak is related to CHF exacerbation. Patient also has underlying COPD. Findings less consistent with COPD exacerbation. For now we will use scheduled nebulization, hold off on steroids. Attestations Medical Necessity Statement*: Anticipate greater than 2 midnight admission for management of acute on chronic CHF exacerbation, needs IV diuresis. Coding Level of Care Code Acute Vault Clerk for Kuldeep Wright Diagnoses Congestive heart failure I50.9 Pulmonary edema J81.1 Acute respiratory distress R06.03 Ischemic cardiomyopathy I25.5
[2022-05-27] MEDS: enoxaparin 40 mg/0.4 mL Syringe SUBCUT (23:32)
[2022-05-28] VITALS (16 sets, daily range): BP systolic 84–100; BP diastolic 45–56; PULSE 63–99; RESP 8–19; TEMP 36.5–37.1; O2SAT 96–100
[2022-05-28 01:34] LABS: Basophils # 0.1 10^3/uL (0.0-0.1); Basophils % 0.5 %; Eosinophils % 0.3 %; Hematocrit 26.6 % (42.0-52.0); Hemoglobin 8.5 g/dL (11.7-16.6); Lymphocytes % 8.1 %; Mean Corpuscular Hemoglobin 29.8 pg (28.0-34.0); Mean Corpuscular Volume 93.3 fl (80-94); Mean Platelet Volume 11.4 fL (7.4-10.4); Monocytes # 0.6 10^3/uL (0.2-0.9); Monocytes % 5.1 %; Neutrophils # 10.19 10^3/uL (1.8-7.7); Neutrophils % 85.5 %; Nucleated Red Blood Cells % 0 %; Platelet Count 227 10^3/cmm (130-400); Red Blood Count 2.85 10^6/uL (4.1-5.3); Red Cell Distribution Width 14.9 % (12.1-15.1); White Blood Count 11.9 10^3/uL (4.0-10.0)
[2022-05-28 01:58] LABS: Troponin 5 6HR 87.66 ng/L (0-15)
[2022-05-28 01:59] LABS: Alanine Aminotransferase 6 U/L (0-41); Albumin Level 3.4 g/dL (3.5-5.2); Alkaline Phosphatase 75 U/L (40-130); Anion Gap 16.3 (5-19); Aspartate Amino Transferase 14 U/L (0-40); Blood Urea Nitrogen 25 mg/dL (8-23); Calcium 8.7 mg/dL (8.5-10.5); Carbon Dioxide 21 mmol/L (22-29); Chloride 102 mmol/L (98-107); Globulin 2.5 g/dL (1.3-4.6); Glucose 111 mg/dL (65-115); Magnesium 2.6 mg/dL (1.7-2.3); Osmolality Calculated 285 mOsm/kg (285-295); Potassium 4.3 mmol/L (3.5-5.1); Sodium 135 mmol/L (136-145); Total Bilirubin 0.4 mg/dL (0.15-1.2); Total Protein 5.9 g/dL (6.6-8.7)
[2022-05-28 02:09] LABS: Troponin 5 6HR Delta 31.66 ng/L (0-12)
--- NOTE | 2022-05-28 02:50 | ECG_ITS ---
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
[2022-05-28] MEDS: FUROsemide 10 mg/mL SDV 4mL 40 MG IVP (05:55)
[2022-05-28] MEDS: atorvastatin 40 mg Tablet PO (05:56)
[2022-05-28] MEDS: levothyroxine 75 mcg Tablet PO (05:56)
[2022-05-28] MEDS: aspirin 81 mg EC Tablet PO (05:56)
[2022-05-28] MEDS: pantoprazole DR 40 mg Tablet PO (08:12)
[2022-05-28] MEDS: carvedilol 3.125 mg Tablet PO (08:12)
[2022-05-28] MEDS: ipratropium-albuterol 3 mL Neb INHALATION ×3 (08:33→21:12)
--- NOTE | 2022-05-28 11:32 | PM.PN ---
Subjective Subjective: Patient is endorsing feeling better He is on room air he saturating well\ Good urine output Significant other at the bedside Hemodynamically stable Vitals/I&O/Wt Last Vital Signs Temp 98.5 F 05/28/22 07:41 Pulse 99 05/28/22 09:47 Resp 16 05/28/22 08:36 BP 100/45 05/28/22 07:41 Pulse Ox 96 05/28/22 09:47 O2 Del Method 05/28/22 09:47 O2 Flow Rate 4 05/28/22 08:36 FiO2 40 05/28/22 08:00 05/27/22 05/28/22 05/28/22 22:59 06:59 14:59 Intake Total 240 / 240 236 / 236 Output Total 575 / 575 500 / 500 Balance -335 / -335 -264 / -264 Weight last 48 hrs Weight 76.022 kg Physical Exam Narrative: Patient is sitting in the bed Satting well on room air Heart rate has been a shortness of breath Endorsing feeling better Nonfocal neuro exam Lower extremity no swelling Crackles noted on lung auscultation right greater than left Data : 05/28/22 01:05 05/28/22 01:05 A&P Assessment and plan (1) Pulmonary edema: (2) Acute respiratory distress: (3) COPD exacerbation: (4) Congestive heart failure: (5) LV dysfunction: (6) Normocytic anemia: (7) Chronic kidney disease: Qualifiers: Chronic kidney disease stage: stage 2 (mild) Qualified Code(s): N18.2 - Chronic kidney disease, stage 2 (mild) (8) Pacemaker: Plan Acute reduced ejection fraction heart failure exacerbation This most likely seems to be gradual decline in functional status Currently clinically doing well Crackles noted At home he takes Lasix 40 mg daily Have counseled him to increase his dose For now continue IV diuresis Plan to discharge him tomorrow if clinically stable Chronic kidney disease at baseline no acute exacerbation Patient does not use oxygen at home Full code Cardiac diet DVT prophylaxis on board Attestations Medical Necessity Statement*: Discharge tomorrow Time Spent in Patient Care: 30 Coding Level of Care Code Acute Consumer Sales Representative for [facility] Fwd Diagnoses Pulmonary edema J81.1 Acute respiratory distress R06.03 COPD exacerbation J44.1 Congestive heart failure I50.9 LV dysfunction I51.9 Normocytic anemia D64.9 Chronic kidney disease N18.2 Chronic kidney disease stage: stage 2 (mild) Pacemaker Z95.0
--- NOTE | 2022-05-28 12:30 | PC.CHAP ---
Pastoral Care Encounter/Spiritual Assessment Type of Contact [] Declined certified welder visit [] Patient/Family/Request visit [] Outpatient visit [] Follow-up visit [] Physician referral [] Code/Alert [x] Routine visit [] Staff referral [] Actively dying [] Patient sleeping [] Family support [] [] Out of room [] Palliative care [] [] Receiving care in room [] Pre-surgical visit [] Trauma [] Long length of stay [] ICU visit [] Other: Relational/Emotional Strength [] Patient feels connected with others/family/visitors/staff [] Distress [] Loneliness/isolation [] Abandonment Spirituality of Patient [x] Person of Cecy [] Attends Episcopalian of their Cecy [] Believes in Prayer [] Reads Bible or Shinto materials [] There are Spiritual issues to be addressed Marriage Performer Interventions [x] Prayer [] Active listening [] Non-anxious presence [] Spiritual/emotional support [] Crisis/trauma care [] Spiritual counseling [] Bereavement support [] Provided bereavement packet [] Provided Bible/devotional materials [] Provided toy/stuffed animal, coloring book to patient or family member [] Provided Communion [] Anointing/[place] [] Salvation [x] Completed spiritual assessment [] Other: Impact on Illness or Injury [] Angry [] Fearful [] Anxious [] Often cries [] Exhaustion [] Unable to work [] Unable to attend restorationist [] Unable to walk/stand [] Unable to read [] Unable to drive [] Unable to eat/drink [] Unable to sleep [] Unable to be with family [] Patient intubated [] Other: Summary Time spent with patient 10 min
[2022-05-28] MEDS: enoxaparin 40 mg/0.4 mL Syringe SUBCUT (19:46)
[2022-05-28] MEDS: FUROsemide 20 mg Tablet PO (19:46)
[2022-05-29] VITALS (10 sets, daily range): BP systolic 93–95; BP diastolic 45–51; PULSE 62–85; RESP 14–18; TEMP 36.4; O2SAT 92–100
[2022-05-29] MEDS: ipratropium-albuterol 3 mL Neb INHALATION ×2 (02:18→08:50)
[2022-05-29] MEDS: aspirin 81 mg EC Tablet PO (04:32)
[2022-05-29] MEDS: atorvastatin 40 mg Tablet PO (04:32)
[2022-05-29] MEDS: levothyroxine 75 mcg Tablet PO (04:32)
[2022-05-29 06:08] LABS: Blood Urea Nitrogen 31 mg/dL (8-23); Calcium 8.8 mg/dL (8.5-10.5); Carbon Dioxide 21 mmol/L (22-29); Chloride 106 mmol/L (98-107); Glucose 84 mg/dL (65-115); Osmolality Calculated 296 mOsm/kg (285-295); Sodium 140 mmol/L (136-145)
[2022-05-29] MEDS: FUROsemide 20 mg Tablet PO (09:00)
[2022-05-29] MEDS: pantoprazole DR 40 mg Tablet PO (09:00)
--- NOTE | 2022-05-29 09:57 | P.DS_ITS ---
Discharge Providers Date of Admission: 05/27/22 21:00 Date of Discharge: May 29, 2022 Attending Provider at Admission: Lucrecia Cowart MD Attending Provider at Discharge: Francisco Oropeza MD Primary Care Provider: Gregorio Cnuningham DO Diagnoses at Discharge Discharge Diagnosis (1) Pulmonary edema: Status: Acute (2) Acute respiratory distress: Status: Acute (3) COPD exacerbation: Status: Acute (4) Congestive heart failure: Status: Acute (5) LV dysfunction: Status: Acute (6) Normocytic anemia: Status: Acute (7) Chronic kidney disease: Status: Chronic Qualifiers: Chronic kidney disease stage: stage 2 (mild) Qualified Code(s): N18.2 - Chronic kidney disease, stage 2 (mild) (8) Pacemaker: Status: Chronic Permanent problem details: [employer] Reason for Visit Reason for Visit: sob Hospital Course Hospital Course 76-year-old male with history of 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 His symptoms resolved with use of IV diuretics, his systolic blood pressure remains in 90s. He was asymptomatic. Cultures negative, he did not require oxygen. We were able to wean him off after IV diuresis. I have counseled patient to use 60 mg of p.o. Lasix daily along with potassium supplements. He can continue his dual antiplatelet therapy and follow-up with Dr. Rojas within a month. Patient is endorsing improving as well at the time of discharge. Creatinine at baseline 1.7 at the time of discharge. EKG showed paced rhythm. Patient never expressed any chest pain, troponin elevated likely due to chronic kidney disease Physical Exam Narrative: S1, S2 variable Abdominal exam benign Clinical signs of fluid load over improving Currently on room air Nonfocal neuro exam Appropriate mood and affect Discharge Data Studies Completed and Pending Completed Studies During Hospitalization Category Date Time Status XR chest 1V portable [id number] Stat Exams 05/27/22 18:14 Completed Radiology Impressions Chest X-Ray 05/27/22 18:14 IMPRESSION: 1. Cardiomegaly. 2. Interstitial edema. 3. Right hilar to lower lobe atelectasis versus infiltrate. 4. Trace bilateral pleural effusions. 5. Left-sided pacemaker. Laboratory Results WBC 11.9 10^3/uL (4.0-10.0) H 05/28/22 01:05 RBC 2.85 10^6/uL (4.1-5.3) L 05/28/22 01:05 Hgb 8.5 g/dL (11.7-16.6) L 05/28/22 01:05 Hct 26.6 % (42.0-52.0) L 05/28/22 01:05 MCV 93.3 fl (80-94) 05/28/22 01:05 MCH 29.8 pg (28.0-34.0) 05/28/22 01:05 MCHC 32.0 g/dL (30.0-36.0) 05/28/22 01:05 RDW 14.9 % (12.1-15.1) 05/28/22 01:05 Plt Count 227 10^3/cmm (130-400) 05/28/22 01:05 MPV 11.4 fL (7.4-10.4) H 05/28/22 01:05 Neut % (Auto) 85.5 % 05/28/22 01:05 Lymph % (Auto) 8.1 % 05/28/22 01:05 [place] % (Auto) 5.1 % 05/28/22 01:05 Eos % (Auto) 0.3 % 05/28/22 01:05 Baso % (Auto) 0.5 % 05/28/22 01:05 Neut # (Auto) 10.19 10^3/uL (1.8-7.7) H 05/28/22 01:05 Lymph # (Auto) 1.0 10^3/uL (0.8-4.8) 05/28/22 01:05 [place] # (Auto) 0.6 10^3/uL (0.2-0.9) 05/28/22 01:05 Eos # (Auto) 0.0 10^3/uL (0.0-0.8) 05/28/22 01:05 Baso # (Auto) 0.1 10^3/uL (0.0-0.1) 05/28/22 01:05 Nucleated RBC % (auto) 0 % 05/28/22 01:05 Nucleated RBCs # 0.0 /100WBC 05/28/22 01:05 Specimen Type Arterial 05/27/22 18:31 Sample Site Radial, right 05/27/22 18:31 ABG pH 7.43 (7.35-7.45) 05/27/22 18:31 ABG pCO2 34.9 mmHg (35-45) L 05/27/22 18:31 ABG pO2 88.6 mmHg (80.0-100.0) 05/27/22 18:31 ABG HCO3 23.3 mmol/L (22-26) 05/27/22 18:31 ABG O2 Saturation 98.0 05/27/22 18:31 ABG Base Excess -0.7 mmol/L (-2.0-2.0) 05/27/22 18:31 Jae Test Pos 05/27/22 18:31 A-a O2 Gradient 19.9 mmHg (5-10) H 05/27/22 18:31 Hematocrit 28.3 % (42-52) L 05/27/22 18:31 Hgb O2 Saturation 95.9 % (95-100) 05/27/22 18:31 Carboxyhemoglobin 1.6 %THgb (0.4-20.1) 05/27/22 18:31 Methemoglobin 0.6 % (0.4-1.5) 05/27/22 18:31 Total Hemoglobin 9.2 g/dL (14-18) L 05/27/22 18:31 Sodium 137.0 mmol/L (131-143) 05/27/22 18:31 Potassium 3.9 mmol/L (3.5-5.0) 05/27/22 18:31 Glucose 122.0 mg/dL (70-115) H 05/27/22 18:31 Ionized Calcium 1.1 mmol/L (1.1-1.4) 05/27/22 18:31 O2 Delivery Device Bipap 05/27/22 18:31 FiO2 40.0 % 05/27/22 18:31 Material Man ID ellpe 05/27/22 18:31 Sodium 140 mmol/L (136-145) 05/29/22 05:20 Potassium 4.0 mmol/L (3.5-5.1) 05/29/22 05:20 Chloride 106 mmol/L (98-107) 05/29/22 05:20 Carbon Dioxide 21 mmol/L (22-29) L 05/29/22 05:20 Anion Gap 17.0 (5-19) 05/29/22 05:20 BUN 31 mg/dL (8-23) H 05/29/22 05:20 Creatinine 1.7 mg/dL (0.7-1.2) H 05/29/22 05:20 GFR Calculation Not Reportable 05/29/22 05:20 Glucose 84 mg/dL (65-115) 05/29/22 05:20 Calculated Osmolality 296 mOsm/kg (285-295) H 05/29/22 05:20 Calcium 8.8 mg/dL (8.5-10.5) 05/29/22 05:20 Magnesium 2.6 mg/dL (1.7-2.3) H 05/28/22 01:05 Total Bilirubin 0.4 mg/dL (0.15-1.2) 05/28/22 01:05 AST 14 U/L (0-40) 05/28/22 01:05 ALT 6 U/L (0-41) 05/28/22 01:05 Alkaline Phosphatase 75 U/L (40-130) 05/28/22 01:05 Troponin T Baseline 56 ng/L (0-15) H 05/27/22 18:25 Troponin T 120 Minute 61.01 ng/L (0-15) H 05/27/22 20:27 Delta Troponin T 5.01 ABS# (0-10) 05/27/22 20:27 Troponin T Hi Sens 6Hr 87.66 ng/L (0-15) H 05/28/22 01:05 Troponin T Hi Sens 6Hr Delta 31.66 ng/L (0-12) H* 05/28/22 01:05 NT-Pro-B Natriuret Pep 3581 pg/mL (0-450) H 05/27/22 18:25 Total Protein 5.9 g/dL (6.6-8.7) L D 05/28/22 01:05 Albumin 3.4 g/dL (3.5-5.2) L 05/28/22 01:05 Globulin 2.5 g/dL (1.3-4.6) 05/28/22 01:05 Procalcitonin 0.07 ng/mL (0-0.5) 05/27/22 18:25 Vitals Last Vital Signs Temp 97.6 F 05/29/22 04:36 Pulse 76 05/29/22 08:00 Resp 16 05/29/22 08:00 BP 95/51 05/29/22 04:36 Pulse Ox 100 05/29/22 09:12 O2 Del Method 05/29/22 08:00 O2 Flow Rate 4 05/28/22 08:36 FiO2 40 05/28/22 08:00 Discharge Plan Discharge Patient Disposition: Home Condition: Stable Prescriptions: New potassium chloride 10 mEq tablet,ER particles/crystals 10 meq PO DAILY Qty: 60 1RF albuterol sulfate 90 mcg/actuation HFA aerosol inhaler 2 inh inhalation Q8H PRN (Reason: shortness of breath or wheezing) Qty: 8.5 0RF Continued atorvastatin 40 mg tablet 40 mg PO QAM Qty: 90 3RF levothyroxine [Synthroid] 75 mcg Tablet 75 mcg PO QAM clopidogrel [Plavix] 75 mg tablet 75 mg PO QAM 30 Days Qty: 30 1RF aspirin 81 mg Tablet,Delayed Release (Dr/Ec) 81 mg PO QAM 30 Days Qty: 30 0RF carvedilol 3.125 mg tablet 3.125 mg PO BID 30 Days Qty: 60 3RF nitroglycerin [Nitrostat] 0.4 mg tablet, sublingual 0.4 mg sublingual Q5M PRN (Reason: chest pain) 3 Days Qty: 30 3RF Rx Instructions: do not exceed 3 doses per episode furosemide 40 mg tablet 40 mg PO DAILY@0800 Qty: 120 2RF magnesium 200 mg Tablet 400 mg PO DAILY Qty: 60 0RF Discharge Orders: Discharge Order (Routine); Ordered 05/29/22 Ordered By: Francisco Oropeza Referrals: Jhonathan Jara M.D [Physician] - 07/09/22 12:45 pm (Please keep your appointment with Chayo Carlos on at 1245p.m. with an Dr. Meza appointment to follow-up. If you have any questions or need to reschedule. Please call ) Gregorio Cunningham DO [Primary Care Provider] - 06/04/22 7:30 am (Please follow- up with Dr. Cunningham on at 7:30A.M. If you have any questions or need to reschedule. Please call ) Discharge Diet: Cardiac Patient Instructions: Albuterol (By breathing), Potassium Chloride (By mouth), Pulmonary Edema (DC), CHF Stoplight, COPD Stoplight, Opioid Safety Discharge Attestations Time Spent in Discharge Care*: less than 30 min Quality Metrics Clinical Quality Measures [ No reported AMI, CVA or VTE this stay] Coding Level of Care Code Acute Chg FW DC note Diagnoses Pulmonary edema J81.1 Acute respiratory distress R06.03 COPD exacerbation J44.1 Congestive heart failure I50.9 LV dysfunction I51.9 Normocytic anemia D64.9 Chronic kidney disease N18.2 Chronic kidney disease stage: stage 2 (mild) Pacemaker Z95.0
--- NOTE | 2022-05-29 12:06 | PC.NURSE ---
discharge instructions given and explained.pt verb understanding of instructions.discharged ambulatory to exit.spouse to drive pt home.
== END 2022-05-29 12:06 | disposition home or self-care (01) ==
LOC: ER 20:39 → CSU 05-28 03:14
PROVIDERS: Admitting Provider Student in an Organized Health Care Education/Training Program; Emergency Provider Emergency Medicine; PCP Electrodiagnostic Medicine; Visit Provider Internal Medicine
DX: J81.1 Chronic pulmonary edema (principal); R06.03 Acute respiratory distress; J44.1 Chronic obstructive pulmonary disease with (acute) exacerbation; I13.0 Hypertensive heart and chronic kidney disease with heart failure and stage 1 through stage 4 chronic kidney disease, or unspecified chronic kidney disease; N18.9 Chronic kidney disease, unspecified; I50.9 Heart failure, unspecified; D64.9 Anemia, unspecified; Z95.0 Presence of cardiac pacemaker; E78.5 Hyperlipidemia, unspecified; E03.9 Hypothyroidism, unspecified; Z79.82 Long term (current) use of aspirin; F17.210 Nicotine dependence, cigarettes, uncomplicated
CPT/HCPCS: 36600; 71045; 80048; 80051; 80053; 82330; 82805; 83735; 83880; 84145; 84484; 85025; 93005; 94640; 94660; 94760; 96372; 96374; 96375; 99291; G0378; J1650; J1940; J2270; J2405

== ENCOUNTER → 2022-07-09 13:48 | Outpatient (BNVA) | payer MEDICARE, SELFPAY | PROVIDERS: PCP Electrodiagnostic Medicine; Visit Provider Internal Medicine Pulmonary Disease | DX: E78.5 Hyperlipidemia, unspecified (principal); R06.02 Shortness of breath; J44.9 Chronic obstructive pulmonary disease, unspecified; I11.0 Hypertensive heart disease with heart failure; Z87.891 Personal history of nicotine dependence; Z71.6 Tobacco abuse counseling | CPT/HCPCS: 99214 ==

== ENCOUNTER → 2022-07-16 10:27 | Outpatient (BNVA) | payer MEDICARE, SELFPAY | PROVIDERS: PCP Electrodiagnostic Medicine; Visit Provider Nurse Practitioner Family | DX: I13.0 Hypertensive heart and chronic kidney disease with heart failure and stage 1 through stage 4 chronic kidney disease, or unspecified chronic kidney disease (principal); N18.9 Chronic kidney disease, unspecified; I50.9 Heart failure, unspecified; Z87.891 Personal history of nicotine dependence; I25.10 Atherosclerotic heart disease of native coronary artery without angina pectoris; Z95.810 Presence of automatic (implantable) cardiac defibrillator | CPT/HCPCS: 36415; 80048; 83880; 99214 ==

== ENCOUNTER 2022-07-18 08:57 | Outpatient (CLI) | payer MEDICARE, SELFPAY | END 2022-07-18 08:58 | disposition home or self-care (01) | PROVIDERS: PCP Electrodiagnostic Medicine; Visit Provider Internal Medicine Pulmonary Disease | DX: E78.5 Hyperlipidemia, unspecified (principal); I10 Essential (primary) hypertension; R06.02 Shortness of breath | CPT/HCPCS: 94010; 94618; 94726; 94729 ==

== ENCOUNTER → 2022-09-04 09:50 | Outpatient (BNVA) | payer MEDICARE, SELFPAY | PROVIDERS: PCP Electrodiagnostic Medicine; Visit Provider Internal Medicine Pulmonary Disease | DX: R06.02 Shortness of breath (principal); Z87.891 Personal history of nicotine dependence; J44.9 Chronic obstructive pulmonary disease, unspecified; I50.22 Chronic systolic (congestive) heart failure | CPT/HCPCS: 99214 ==

== ENCOUNTER → 2022-09-11 14:36 | Outpatient (BNVA) | payer MEDICARE, SELFPAY | PROVIDERS: PCP Electrodiagnostic Medicine; Visit Provider Internal Medicine | DX: I13.0 Hypertensive heart and chronic kidney disease with heart failure and stage 1 through stage 4 chronic kidney disease, or unspecified chronic kidney disease (principal); N18.9 Chronic kidney disease, unspecified; I50.9 Heart failure, unspecified; Z87.891 Personal history of nicotine dependence; I25.10 Atherosclerotic heart disease of native coronary artery without angina pectoris; I35.0 Nonrheumatic aortic (valve) stenosis; Z95.810 Presence of automatic (implantable) cardiac defibrillator; Z79.82 Long term (current) use of aspirin | CPT/HCPCS: 99214 ==

== ENCOUNTER 2023-02-04 10:54 | Outpatient (CLI) | payer MEDICARE, SELFPAY ==
--- NOTE | 2023-02-04 10:59 | US_ITS ---
WS: [id number] RENAL ULTRASOUND HISTORY: ACUTE RENAL FAILURE SYNDROME COMPARISON: 04/11/2022 TECHNIQUE: 2-D and color Doppler imaging of the kidney submitted. Right kidney: 9.8 cm x 4.1 cm x 4.2 cm. Cortex: 1.0 cm Normal echogenicity with no hydronephrosis or mass. Mild cortical thinning RIGHT renal cortex greates t in the lower pole. Left kidney: 9.3 cm x 4.3 cm x 4.3 cm. Cortex: 1.1 cm Normal echogenicity with no hydronephrosis or mass. Aorta: Normal. Urinary Bladder: Normal distention. US/US renal BI* [id number] IMPRESSION: 1. No acute interval change since 04/11/2022. 2. Minimal cortical thinning lower pole RIGHT kidney. No hydronephrosis.
== END 2023-02-04 10:55 | disposition home or self-care (01) ==
LOC: RAD 10:55
PROVIDERS: PCP Electrodiagnostic Medicine; Visit Provider Internal Medicine Nephrology
DX: N17.9 Acute kidney failure, unspecified (principal)
CPT/HCPCS: 76770

== ENCOUNTER → 2023-02-12 14:49 | Outpatient (BNVA) | payer MEDICARE, SELFPAY | PROVIDERS: PCP Electrodiagnostic Medicine; Visit Provider Internal Medicine | DX: I11.9 Hypertensive heart disease without heart failure (principal); I25.10 Atherosclerotic heart disease of native coronary artery without angina pectoris; I35.0 Nonrheumatic aortic (valve) stenosis; Z95.810 Presence of automatic (implantable) cardiac defibrillator; Z87.891 Personal history of nicotine dependence | CPT/HCPCS: 99214 ==

== ENCOUNTER 2023-04-04 10:11 | Outpatient (CLI) | payer MEDICARE, SELFPAY ==
--- NOTE | 2023-04-04 10:30 | CT_ITS ---
WS: [id number] LDCT LUNG CANCER SCREENING HISTORY: Cancer Screen TECHNIQUE: Axial imaging performed from the apices to 1 cm below the costophrenic angles. Coronal and sagittal reformats are submitted with axial MIP series. All CT scans at [facility] use at least one of these dose optimization techniques: automated exposure control; mA and/or kV adjustment per patient size (includes targeted exams where dose is matched to clinical indication); or iterativ e reconstruction. DLP: 91.39 mGy.cm DIvol: Mean CTDIvol: 1.80 (mGy) COMPARISON: 04/15/2022 Diagnostic quality: Satisfactory Lungs: No pulmonary mass or nodule. There is a small pleural tag which is stable at the LEFT lung bas e measuring 5 mm. No endobronchial lesions. Heart: Moderate cardiomegaly. Pacer and defibrillator wires are noted within the RIGHT heart. There i s heavy, extensive coronary artery calcification.. Other findings: Mild atherosclerosis aorta. No mediastinal or hilar adenopathy. Mild gynecomastia. Sm all hiatal hernia. Stable low-attenuation masses in the visualized superior liver. These are probably cysts. No adrenal mass. Moderate calcification in the suprarenal aorta and involving the celiac axis and SMA. IMPRESSION: CT/CT lung screening [id number] LUNG-RADS: 2S-Benign Appearance or Behavior with Significant Findings FOLLOW UP: 12 Month: Continue annual screening with LDCT OTHER FINDINGS (S MODIFIER): Severe coronary artery atherosclerosis.
== END 2023-04-04 10:12 | disposition home or self-care (01) ==
PROVIDERS: PCP Electrodiagnostic Medicine; Visit Provider Internal Medicine Pulmonary Disease
DX: Z12.2 Encounter for screening for malignant neoplasm of respiratory organs (principal); Z87.891 Personal history of nicotine dependence
CPT/HCPCS: 71271

== ENCOUNTER → 2023-05-05 13:03 | Outpatient (BNVA) | payer MEDICARE, SELFPAY | PROVIDERS: PCP Electrodiagnostic Medicine; Visit Provider Internal Medicine Pulmonary Disease | DX: J44.9 Chronic obstructive pulmonary disease, unspecified (principal); Z87.891 Personal history of nicotine dependence; I50.22 Chronic systolic (congestive) heart failure | CPT/HCPCS: 99214 ==

== ENCOUNTER → 2023-06-18 16:47 | Outpatient (BNVA) | payer MEDICARE, SELFPAY | PROVIDERS: PCP Electrodiagnostic Medicine; Visit Provider Internal Medicine | DX: Z45.010 Encounter for checking and testing of cardiac pacemaker pulse generator [battery] (principal) | CPT/HCPCS: 93296 ==

== ENCOUNTER → 2023-08-21 13:50 | Outpatient (BNVA) | payer MEDICARE, SELFPAY | PROVIDERS: PCP Electrodiagnostic Medicine; Visit Provider Internal Medicine | DX: I13.0 Hypertensive heart and chronic kidney disease with heart failure and stage 1 through stage 4 chronic kidney disease, or unspecified chronic kidney disease (principal); N18.9 Chronic kidney disease, unspecified; I50.9 Heart failure, unspecified; Z87.891 Personal history of nicotine dependence; I25.10 Atherosclerotic heart disease of native coronary artery without angina pectoris; I35.0 Nonrheumatic aortic (valve) stenosis; Z95.0 Presence of cardiac pacemaker | CPT/HCPCS: 99214 ==

== ENCOUNTER → 2023-09-17 12:48 | Outpatient (BNVA) | payer MEDICARE, SELFPAY | PROVIDERS: PCP Electrodiagnostic Medicine; Visit Provider Internal Medicine | DX: Z45.02 Encounter for adjustment and management of automatic implantable cardiac defibrillator (principal) | CPT/HCPCS: 93296 ==

== ENCOUNTER → 2023-12-01 10:49 | Outpatient (BNVA) | payer MEDICARE, SELFPAY | PROVIDERS: PCP Electrodiagnostic Medicine; Visit Provider Internal Medicine Pulmonary Disease | DX: R06.02 Shortness of breath (principal); J44.9 Chronic obstructive pulmonary disease, unspecified; Z87.891 Personal history of nicotine dependence; I50.9 Heart failure, unspecified | CPT/HCPCS: 99214 ==

== ENCOUNTER → 2024-02-19 15:00 | Outpatient (BNVA) | payer MEDICARE, SELFPAY | PROVIDERS: PCP Electrodiagnostic Medicine; Visit Provider Internal Medicine | DX: I11.9 Hypertensive heart disease without heart failure (principal); I35.0 Nonrheumatic aortic (valve) stenosis; I25.10 Atherosclerotic heart disease of native coronary artery without angina pectoris; Z95.0 Presence of cardiac pacemaker; Z87.891 Personal history of nicotine dependence | CPT/HCPCS: 99214 ==

== ENCOUNTER 2024-03-24 12:10 | Outpatient (CLI) | payer MEDICARE, SELFPAY ==
--- NOTE | 2024-03-24 12:30 | USCV_ITS ---
Juarez Delgado Age: 78 Gender: M : 1945 Exam Date: 03/24/2024 12:33 Ordering Phys: Jhonathan Jara M.D ([email or web address]) Technologist: [place] [facility] [place]: as BP: 104 / 52 HR: 61 Rhythm: Sinus Technical Quality: Adequate MEASUREMENTS (Male / Female) Normal Values 2D ECHO LVOT Diameter 2.0 cm LV Ejection Fraction MOD 4C 18.3 % LV Ejection Fraction MOD 2C 34.8 % LV Ejection Fraction 2C AL 34.7 % LA Diameter 4.7 cm RA Systolic Volume 4C AL 89.3 ml RA Systolic Volume 4C MOD 88.0 ml LA Sys Volume AL 81.1 cm cubed LA Sys Volume Index AL 37.0 cm cubed/m squared Aorta at Sinotubular Diameter 2.0 cm IVC Diameter 2.2 cm M-MODE LA Ao Ratio MM 2.3 AV Cusp Separation MM 1.2 cm DOPPLER AV Peak Velocity 234.0 cm/s LVOT Peak Velocity 95.0 cm/s AV Area Cont Eq vti 1.3 cm squared AV Area Cont Eq pk 1.3 cm squared MV Peak Velocity 138.0 cm/s MV Area PHT 5.0 cm squared Mitral E to A Ratio 1.9 TR Peak Velocity 373.5 cm/s TR Peak Gradient 55.8 mmHg TR Mean Velocity 230.0 cm/s TR Mean Gradient 26.1 mmHg TR Velocity Time Integral 111.0 cm TV Peak E Velocity 75.0 cm/s PV Peak Velocity 105.0 cm/s FINDINGS Left Ventricle Moderately increased left ventricular cavity size. Severely decreased left ventricular systolic function. Left ventricular ejection fraction is estimated at 34 %. Global left ventricular hypokinesis. Moderately increased left ventricular filling pressure. Right Ventricle not well visualized perhaps mildly reduced function but normal size Right Atrium The right atrium is normal in size. Left Atrium The left atrium is normal in size. Mitral Valve Moderately thickened mitral valve. No mitral valve stenosis. Severe mitral valve regurgitation. Aortic Valve Moderate aortic valve calcification. Mild to moderate aortic valve stenosis, mean gradient 11.5 mmHg, [place] 1.3 cm squared. Moderate aortic valve regurgitation. Tricuspid Valve Not well visualized appeared to be thickened tricuspid valve. mild regurgitation, if clinically indicated and needed to explore further LYNN would be a good modality Pulmonic Valve Structurally normal pulmonic valve without significant stenosis. There is no pulmonic regurgitation. Pericardium Normal pericardium without effusion. Aorta Normal ascending aorta dimension. IVC The inferior vena cava appears normal. CONCLUSIONS Moderately increased left ventricular cavity size. Severely decreased left ventricular systolic function. Left ventricular ejection fraction is estimated at 34 %. Global left ventricular hypokinesis. Moderately increased left ventricular filling pressure. Moderate aortic valve calcification. Mild to moderate aortic valve stenosis, mean gradient 11.5 mmHg, [place] 1.3 cm squared. Moderate aortic valve regurgitation. Moderately thickened mitral valve. No mitral valve stenosis. Severe mitral valve regurgitation Not well visualized appeared to be thickened tricuspid valve. mild regurgitation, if clinically indicated and needed to explore further LYNN would be a good modality There is no pericardial effusion. Right atrial pressure is around 10 mm of mercury. Francisco Griffin MD (Electronically Signed) Final Date: 25 March 2024 09:58 S
== END 2024-03-24 12:11 | disposition home or self-care (01) ==
LOC: RAD 12:10
PROVIDERS: PCP Electrodiagnostic Medicine; Visit Provider Internal Medicine
DX: I08.0 Rheumatic disorders of both mitral and aortic valves (principal)
CPT/HCPCS: 93306

== ENCOUNTER → 2024-06-23 09:16 | Outpatient (BNVA) | payer MEDICARE, SELFPAY | PROVIDERS: PCP Electrodiagnostic Medicine; Visit Provider Internal Medicine | DX: Z45.02 Encounter for adjustment and management of automatic implantable cardiac defibrillator (principal) | CPT/HCPCS: 93296 ==

== ENCOUNTER 2024-07-03 20:25 | Inpatient (IN) | payer OTHER, MEDICARE, SELFPAY ==
[2024-07-03] VITALS (13 sets, daily range): BP systolic 100–137; BP diastolic 53–83; PULSE 60–108; RESP 15–29; TEMP 36.5; O2SAT 92–99; BMI 27.1; BMI 27.2
--- NOTE | 2024-07-03 20:26 | XRR_ITS ---
PROCEDURE INFORMATION: Exam: XR Chest Exam date and time: 07/03/2024 8:27 PM Age: 78 years old Clinical indication: Prior surgery; Surgery date: 6+ months; Surgery type: Pacemaker, cardiac stents; Patient HX: SOB; Hypoxia; Dyspnea; Pulmonary edema; Rales TECHNIQUE: Imaging protocol: Radiologic exam of the chest. Views: 1 view. COMPARISON: CT lung screening [id number] 04/04/2023 10:42 AM FINDINGS: Tubes, catheters and devices: There is stable placement pacemaker defibrillator via the left subclavian vein. EKG leads overlie the chest. Lungs: There is mild prominence and indistinctness of the pulmonary vasculature and there are increased interstitial opacities present the mid and lower thoraces bilaterally. A few septal markings are seen in the lower balwinder thoraces is well. These findings suggest pulmonary edema. Pleural spaces: Unremarkable. No pleural effusion. No pneumothorax. Heart/Mediastinum: Unremarkable. No cardiomegaly. Bones/joints: Unremarkable. XR/XR chest 1V portable [id number] IMPRESSION: Mild indistinctness of the pulmonary vasculature and increased interstitial septal markings in the mid and lower balwinder thoraces suggest pulmonary edema.
--- NOTE | 2024-07-03 20:27 | ECG_ITS ---
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 Measurements Intervals [place] Rate: 109 P: 193 NC: 129 QRS: -70 QRSD: 181 T: 132 QT: 368 QTc: 496 Interpretive Statements ELECTRONIC VENTRICULAR PACEMAKER Compared to ECG 05/28/2022 02:50:17 Atrial-paced complex(es) or rhythm no longer present Electronically Signed On 07-05-2024 20:17:04 DIRECTOR OF AGRICULTURE by Jhonathan Jara M.D. [email or web address]
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
[2024-07-03 20:39] LABS: ABG PCO2 38.9 mmHg (35-45); ABG PH Result 7.28 (7.35-7.45); Alveolar-Arterial Oxygen Gradi 11.1 mmHg (5-10); Arterial Blood Gas Hematocrit 48.4 % (42-52); Blood Gas Allen Test Pos; Blood Gas Sample Site Radial, right; Blood Gas Sample Type Arterial; HCO3 ABG 18.2 mmol/L (22-26); HGB O2 Sat 97.1 % (95-100); Ionized Calcium Level - ABG 1.1 mmol/L (1.1-1.4); Oxygen Device BIPAP; Oxygen Saturation ABG 99.2; PO2 FiO2 Ratio Arterial Blood 382; Potassium Level - ABG 3.5 mmol/L (3.5-5.0); Total Hemoglobin 15.8 g/dL (14-18)
[2024-07-03 20:52] LABS: Basophils # 0.1 10^3/uL (0.0-0.1); Eosinophils # 1.3 10^3/uL (0.0-0.8); Eosinophils % 10.9 %; Hematocrit 47.3 % (37-53); Lymphocytes # 4.1 10^3/uL (0.8-4.8); Lymphocytes % 35.4 %; Mean Corpuscular HGB Conc 31.9 g/dL (30-55); Mean Corpuscular Hemoglobin 30.1 pg (27-33); Mean Corpuscular Volume 94.4 fl (82-101); Mean Platelet Volume 11.4 fL (7.4-10.4); Monocytes # 0.5 10^3/uL (0.2-0.9); Monocytes % 4.5 %; Neutrophils # 5.45 10^3/uL (1.8-7.7); Neutrophils % 47.6 %; Nucleated Red Blood Cells % 0 %; Platelet Count 210 10^3/cmm (157-399); Red Blood Count 5.01 10^6/uL (3.85-5.65); Red Cell Distribution Width 13.7 % (12.1-15.1); White Blood Count 11.44 10^3/uL (3.29-11.43)
[2024-07-03 21:05] LABS: INR 0.97 (0.8-1.2)
[2024-07-03 21:10] LABS: Troponin(5th) Baseline 61 ng/L (0-15)
[2024-07-03 21:11] LABS: Lactic Sepsis W/Reflex 3.2 mmol/L (0.5-2.2)
[2024-07-03 21:29] LABS: Alanine Aminotransferase 8 U/L (0-41); Albumin Level 4.1 g/dL (3.5-5.2); Alkaline Phosphatase 92 U/L (40-130); Aspartate Amino Transferase 16 U/L (0-40); Blood Urea Nitrogen 25 mg/dL (8-23); Calcium 8.7 mg/dL (8.5-10.5); Carbon Dioxide 19 mmol/L (22-29); Chloride 98 mmol/L (98-107); Globulin 2.8 g/dL (1.3-4.6); Glucose 275 mg/dL (65-115); Magnesium 2.3 mg/dL (1.7-2.3); NT Pro B Type Natriuretic Pept 3117 pg/mL (0-450); Osmolality Calculated 292 mOsm/kg (285-295); Sodium 134 mmol/L (136-145); Total Bilirubin 0.6 mg/dL (0.15-1.2); Total Protein 6.9 g/dL (6.6-8.7)
[2024-07-03 21:31] LABS: Anion Gap 20.9 (5-19); Potassium 3.9 mmol/L (3.5-5.1)
[2024-07-03 21:37] LABS: Covid PCR NEGATIVE (Negative); Influenza A NEGATIVE (Negative); Influenza B NEGATIVE (Negative); Respiratory Syncytial Virus Ce NEGATIVE (Negative)
[2024-07-03 22:37] LABS: Reflex Lactate Order REFLEX LACTIC ORDERD
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
--- NOTE | 2024-07-03 23:18 | ECG_ITS ---
[email or web address] Date: 2024-07-03 Pat Name: Juarez Delgado Department: Room: [facility] Gender: Male Pediatric Pathologist: : 1945 Requested By: Slava Rodriguez Order Number: [id number] Christal MD: Jhonathan Jara M.D. Measurements Intervals [place] Rate: 76 P: 26 MI: 179 QRS: -73 QRSD: 197 T: 101 QT: 440 QTc: 496 Interpretive Statements ELECTRONIC VENTRICULAR PACEMAKER Compared to ECG 07/03/2024 20:26:33 No significant changes Electronically Signed On 07-05-2024 20:32:31 CHILD CARE COUNSELOR by Jhonathan Jara M.D. [email or web address]
[2024-07-03 23:37] LABS: Estmated Average Glucose 117; Hemoglobin A1C 5.7 % (4.0-6.0); Procalcitonin 0.07 ng/mL (0-0.5); Thyroid Stimulating Hormone 12.31 uIU/mL (0.27-4.20)
[2024-07-03 23:47] LABS: Chol HDL Ratio 5.77 mg/dL (1.0-5.00); Cholesterol 202 mg/dL (0-200); HDL Cholesterol 35 mg/dL (60-100); LDL Cholesterol Calculated 100 mg/dL (50-129); LDL HDL Ratio 2.86 RATIO (0.00-3.22); Triglycerides 335 mg/dL (0-150)
[2024-07-03] MEDS: pantoprazole 40 mg SDV IVP (23:59)
[2024-07-03] MEDS: methylPREDNISolone sod succ 125 mg/2 mL INJ IVP (23:59)
[2024-07-03] MEDS: enoxaparin 40 mg/0.4 mL Syringe SUBCUT (23:59)
[2024-07-04] VITALS (80 sets, daily range): BP systolic 84–136; BP diastolic 39–84; PULSE 58–105; RESP 6–28; TEMP 36.7–36.9; O2SAT 85–98
[2024-07-04] MEDS: ipratropium-albuterol 3 mL Neb INHALATION ×7 (00:12→23:27)
[2024-07-04 00:48] LABS: Lactic Acid level (Lactate) 2.5 mmol/L (0.5-2.2)
--- NOTE | 2024-07-04 03:13 | ECG_ITS ---
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 Measurements Intervals [place] Rate: 61 P: 112 MI: 215 QRS: -71 QRSD: 176 T: 110 QT: 460 QTc: 465 Interpretive Statements ELECTRONIC ATRIAL PACEMAKER ELECTRONIC VENTRICULAR PACEMAKER ABNORMAL RHYTHM ECG Compared to ECG 07/03/2024 23:18:17 No significant changes Electronically Signed On 07-05-2024 20:31:58 SUPERINTENDENT WATER AND SEWER SYSTEMS by Jhonathan Jara M.D. [email or web address]
[2024-07-04] MEDS: FUROsemide 10 mg/mL SDV 4mL 40 MG IVP ×2 (03:26→17:06)
[2024-07-04 03:46] LABS: Basophils % 0.3 %; Eosinophils % 0.4 %; Hematocrit 42.3 % (37-53); Mean Corpuscular HGB Conc 33.1 g/dL (30-55); Mean Corpuscular Hemoglobin 30.6 pg (27-33); Mean Corpuscular Volume 92.4 fl (82-101); Mean Platelet Volume 11.4 fL (7.4-10.4); Monocytes # 0.2 10^3/uL (0.2-0.9); Monocytes % 2.4 %; Neutrophils # 8.42 10^3/uL (1.8-7.7); Neutrophils % 86.4 %; Nucleated Red Blood Cells % 0 %; Platelet Count 164 10^3/cmm (157-399); Red Blood Count 4.58 10^6/uL (3.85-5.65); Red Cell Distribution Width 13.6 % (12.1-15.1); White Blood Count 9.74 10^3/uL (3.29-11.43)
[2024-07-04 04:19] LABS: Troponin 5 6HR 107.1 ng/L (0-15); Troponin 5 6HR Delta 46.1 ng/L (0-12)
[2024-07-04 04:23] LABS: Alanine Aminotransferase 8 U/L (0-41); Alkaline Phosphatase 80 U/L (40-130); Anion Gap 17.9 (5-19); Aspartate Amino Transferase 15 U/L (0-40); Blood Urea Nitrogen 28 mg/dL (8-23); Calcium 8.7 mg/dL (8.5-10.5); Carbon Dioxide 22 mmol/L (22-29); Chloride 101 mmol/L (98-107); Creatinine Clr Calc Pharmacy 30.2517; Globulin 2.3 g/dL (1.3-4.6); Glucose 109 mg/dL (65-115); Magnesium 2.4 mg/dL (1.7-2.3); NT Pro B Type Natriuretic Pept 5455 pg/mL (0-450); Osmolality Calculated 288 mOsm/kg (285-295); Potassium 4.9 mmol/L (3.5-5.1); Sodium 136 mmol/L (136-145); Total Bilirubin 0.8 mg/dL (0.15-1.2); Total Protein 6.3 g/dL (6.6-8.7)
[2024-07-04] MEDS: enoxaparin 60 mg/0.6 mL Syringe 50 MG SUBCUT (04:46)
[2024-07-04] MEDS: clopidogrel 75 mg Tablet PO (05:05)
[2024-07-04] MEDS: aspirin 81 mg EC Tablet PO (05:06)
[2024-07-04 06:51] LABS: Bilirubin Urine Negative (Negative); Blood Urine Negative (Negative); Glucose Urine UA Negative (Normal); Ketones Urine Negative (Negative); Leukocyte Esterase Urine Negative (Negative); Nitrate Urine Negative (Negative); Protein Urine Negative (Negative); Urine Appearance Clear (CLEAR); Urine Color Yellow (Yellow); Urobilinogen Urine 0.2 mg/dL (Negative)
[2024-07-04 06:56] LABS: Add Urine Microscopic? YES; Bacteria Urine None Seen /hpf; Hyaline Casts Urine 28.53 /lpf; RBC Urine 0-2 /hpf (0-2); Squamous Epithelial Cell Urine 0-5 /hpf (0-5); WBC Urine 0-5 /hpf (0-5)
[2024-07-04 07:12] LABS: UA Slide Review UA Slide Review Perf
[2024-07-04] MEDS: budesonide 0.5 mg/2 mL Neb INHALATION ×2 (07:36→20:31)
[2024-07-04] MEDS: atorvastatin 40 mg Tablet PO (08:17)
[2024-07-04] MEDS: methylPREDNISolone sod succ 40 mg/mL INJ IVP ×2 (08:17→17:06)
[2024-07-04 08:41] LABS: Glucose Point of Care 173 mg/dL (70-110)
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
--- NOTE | 2024-07-04 10:49 | ECG_ITS ---
[facility] Test Date: 2024-07-05 Pat Name: Juarez Delgado Department: Room: [facility] Gender: Male Lost [employer] Found Clerk: : 1945 Requested By: Remi Huffman Order Number: [id number] Christal MD: Jhonathan Jara M.D. Interpretive Statements Lung unchanged pre/post procedure; Intraprocedure shortess of breath; Symptoms resoled by discharge [email or web address]
[2024-07-04] MEDS: sodium bicarbonate 650 mg Tablet PO (11:33)
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
[2024-07-04] MEDS: enoxaparin 100 mg/mL Syringe 90 MG SUBCUT (17:07)
--- NOTE | 2024-07-04 22:56 | PC.NURSE ---
Care transfered to Dianna SHAH. Report was given. Patient is in bed currently with no complaints at this time, call washburn in reach.
--- NOTE | 2024-07-04 23:03 | USCV_ITS ---
Juarez Delgado Age: 78 Gender: M : 1945 Exam Date: 07/04/2024 08:48 Ordering Phys: Jose Mack MD Technologist: Ed Gómez [place] [facility] [place]: sob BP: 111 / 63 HR: 64 Rhythm: Sinus Technical Quality: Adequate MEASUREMENTS (Male / Female) Normal Values 2D ECHO LV Diastolic Diameter PLAX 7.6 cm 4.2 - 5.9 / 3.9 - 5.3 cm IVS Diastolic Thickness 0.8 cm 0.6 - 1.0 / 0.6 - 0.9 cm IVS Systolic Thickness 0.8 cm LVPW Diastolic Thickness 1.2 cm 0.6 - 1.0 / 0.6 - 0.9 cm LVPW Systolic Thickness 1.4 cm LVOT Diameter 2.1 cm LV Ejection Fraction 2D Teich 11.7 % LV Ejection Fraction MOD 4C 16.8 % LV Ejection Fraction MOD 2C 33.6 % LV Ejection Fraction 2C AL 34.9 % LA Diameter 4.8 cm RA Systolic Volume 4C AL 71.9 ml RA Systolic Volume 4C MOD 70.5 ml LA Sys Volume AL 70.2 cm cubed LA Sys Volume Index AL 32.5 cm cubed/m squared Aorta at Sinotubular Diameter 2.2 cm IVC Diameter 1.9 cm M-MODE LA Ao Ratio MM 1.7 AV Cusp Separation MM 1.6 cm DOPPLER AV Peak Velocity 197.0 cm/s AV Area Cont Eq vti 1.9 cm squared AV Area Cont Eq pk 1.6 cm squared MV Peak Velocity 120.0 cm/s MV Area PHT 3.0 cm squared Mitral E to A Ratio 1.7 TV Peak Velocity 336.0 cm/s TR Peak Velocity 334.0 cm/s TR Peak Gradient 44.6 mmHg TR Mean Velocity 300.0 cm/s TR Mean Gradient 38.8 mmHg TR Velocity Time Integral 112.2 cm PV Peak Velocity 90.7 cm/s RV Ejection Time 0.2 s FINDINGS Left Ventricle Left ventricle appears dilated. LV systolic function is severely reduced with EF of 20-25%. Severe global hypokinesis. Right Ventricle Normal in size and function Right Atrium Normal in size Left Atrium Normal in size Mitral Valve Structurally normal mitral valve. Mild mitral regurgitation. Aortic Valve Aortic valve is thickened and calcified. Mild aortic regurgitation. Mild aortic stenosis with aortic valve area of 1.88 cm squared and mean gradient of 8 mmHg Tricuspid Valve Insufficient TR jet to calculate RVSP. Pulmonic Valve Trace pulmonic regurgitation. Pericardium Normal Aorta Normal in size IVC Appears to be normal CONCLUSIONS LV systolic function is severely reduced with EF of 20 to 25%. Mild mitral regurgitation Mild aortic regurgitation Mild aortic stenosis Trace pulmonic regurgitation Compared to prior echocardiogram from 03/2024, LV systolic function appears reduced. Jhonathan Jara MD (Electronically Signed) Final Date: 04 July 2024 13:20 S
[2024-07-04] MEDS: pantoprazole 40 mg SDV IVP (23:14)
[2024-07-05] VITALS (17 sets, daily range): BP systolic 110–140; BP diastolic 52–94; PULSE 69–114; RESP 16–26; TEMP 36.6–37; O2SAT 90–96; BMI 27.7
[2024-07-05] MEDS: methylPREDNISolone sod succ 40 mg/mL INJ IVP ×2 (01:05→09:23)
[2024-07-05] MEDS: enoxaparin 100 mg/mL Syringe 90 MG SUBCUT (04:11)
[2024-07-05] MEDS: FUROsemide 10 mg/mL SDV 4mL 40 MG IVP (04:13)
[2024-07-05] MEDS: clopidogrel 75 mg Tablet PO (05:02)
[2024-07-05] MEDS: aspirin 81 mg EC Tablet PO (05:02)
[2024-07-05 07:02] LABS: Basophils % 0.1 %; Hematocrit 41.4 % (37-53); Lymphocytes # 0.8 10^3/uL (0.8-4.8); Lymphocytes % 4.6 %; Mean Corpuscular HGB Conc 32.9 g/dL (30-55); Mean Corpuscular Hemoglobin 30.8 pg (27-33); Mean Corpuscular Volume 93.9 fl (82-101); Mean Platelet Volume 11.5 fL (7.4-10.4); Monocytes # 0.4 10^3/uL (0.2-0.9); Monocytes % 2.2 %; Neutrophils % 92.2 %; Nucleated Red Blood Cells % 0 %; Platelet Count 181 10^3/cmm (157-399); Red Blood Count 4.41 10^6/uL (3.85-5.65); White Blood Count 16.17 10^3/uL (3.29-11.43)
[2024-07-05] MEDS: regadenoson 0.4 Mg/5 ml Syringe IVP (07:14)
[2024-07-05 07:17] LABS: Alanine Aminotransferase 8 U/L (0-41); Alkaline Phosphatase 73 U/L (40-130); Anion Gap 21.1 (5-19); Aspartate Amino Transferase 16 U/L (0-40); Blood Urea Nitrogen 41 mg/dL (8-23); Calcium 8.8 mg/dL (8.5-10.5); Carbon Dioxide 19 mmol/L (22-29); Chloride 101 mmol/L (98-107); Creatinine Clr Calc Pharmacy 28.3088; Globulin 2.9 g/dL (1.3-4.6); Glucose 139 mg/dL (65-115); Magnesium 2.3 mg/dL (1.7-2.3); Osmolality Calculated 296 mOsm/kg (285-295); Phosphorus 3.6 mg/dL (2.5-4.5); Potassium 4.1 mmol/L (3.5-5.1); Sodium 137 mmol/L (136-145); Total Bilirubin 0.6 mg/dL (0.15-1.2); Total Protein 6.9 g/dL (6.6-8.7)
[2024-07-05] MEDS: aminophylline 25 mg/mL SDV 20 mL IVP ×2 (07:23→07:26)
[2024-07-05 07:33] LABS: Procalcitonin 0.44 ng/mL (0-0.5)
--- NOTE | 2024-07-05 08:28 | XRR_ITS ---
PROCEDURE INFORMATION: Exam: XR Chest Exam date and time: 07/05/2024 8:50 AM Age: 78 years old Clinical indication: Shortness of breath; Prior surgery; Surgery date: 6+ months; Surgery type: Pacer stents; Additional info: Hypoxia TECHNIQUE: Imaging protocol: Radiologic exam of the chest. Views: 1 view. COMPARISON: CT chest abdpel [id number] 07/04/2024 9:26 AM FINDINGS: Tubes, catheters and devices: Left chest wall pacer device with unchanged/unremarkable leads. Lungs: Interval improvement in aeration of the bilateral lung bases with perhaps mild residual increased interstitial. No focal consolidation. Pleural spaces: Unremarkable. No pleural effusion. No pneumothorax. Heart/Mediastinum: Unremarkable. No cardiomegaly. Vasculature: Atherosclerotic disease of the aortic arch. Bones/joints: Diffuse degenerative change of the visualized osseous structures. XR/XR chest 1V portable [id number] IMPRESSION: No significant cardiopulmonary findings.
[2024-07-05] MEDS: sodium bicarbonate 650 mg Tablet PO (09:23)
[2024-07-05] MEDS: metOLazone 5 MG Tablet PO (09:23)
[2024-07-05] MEDS: atorvastatin 40 mg Tablet PO (09:23)
--- NOTE | 2024-07-05 10:49 | NMCV_ITS ---
NM onur perf SPECT r/s* [id number] Juarez Delgado Age: 78 Gender: M : 1945 Exam Date: 07/05/2024 10:49 Ordering Phys: Rmei Huffman MD Technologist: BRIDGETTE Adrian Exam Location: [facility] Indications: CP STRESS TEST Please see separate stress test report in [facility] for full findings IMAGE PROTOCOL Rest/Stress 1 Lexiscan Day Radiopharmaceutical Dose (mCi) Administration Site Administered by Rest: Tc-99m 11.0 IV Ashanti Betsey, [employer]IS[employer] AND MISSILE CHECKOUT TECHNICIAN Sestamibi Stress:Tc-99m 33.0 IV Ashanti Betsey, MISSILE AND MISSILE CHECKOUT TECHNICIAN Sestamibi Rest: 05-Jul-2024 60 Discovery 630 Stress: 05-Jul-2024 30 Discovery 630 0.4mg Lexiscan. Supine position only as patient was unable to lay prone. SPECT RESULTS Technical Quality: Good Raw Data Analysis: Normal Image Corrections: No attenuation or motion correction applied Summed Stress Score: 26 Summed Rest Score: 26 Summed Difference Score: 1 PERFUSION FINDINGS There is large area of mostly fixed perfusion defect seen in apical, apical anterior, anterior, inferior and apical lateral dover. This is consistent with a large area of prior infarct with very small area of beta-casper ischemia seen in these territories. FUNCTIONAL RESULTS (calculated via Gated SPECT) Stress Image LV EF (%): 16 Stress EDV (mL):398 TID: 1.13 Stress ESV (mL):335 FUNCTIONAL FINDINGS: LV systolic function is severely reduced with EF of 16% IMPRESSIONS 1. Abnormal Myocardial perfusion imaging with large areas of prior infarct seen in the distribution of all 3 coronary arteries. Very minimal latisha-infarct ischemia noted. 2. LV systolic function is severely reduced with EF of 16% Jhonathan Jara MD (Electronically Signed) Final Date: 05 July 2024 11:10 S
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
[2024-07-05] MEDS: metoprolol tartrate 25 mg Tablet PO (11:28)
--- NOTE | 2024-07-05 11:46 | PC.SOCIAL ---
IMM Updated Updated pt on IMM. No questions voiced. Provided pt a copy. Initialed, dated, & timed a copy & placed in chart.
--- NOTE | 2024-07-05 12:32 | PC.NURSE ---
Patient was given all discharge instructions and new medication instructions. All IVs were taking out. Patient is stable during discharge.
== END 2024-07-05 12:20 | disposition home or self-care (01) | DRG 280 ==
LOC: ER 21:57 → ICU 22:30
PROVIDERS: Admitting Provider Family Medicine; Emergency Provider Emergency Medicine; PCP Electrodiagnostic Medicine; Visit Provider Student in an Organized Health Care Education/Training Program
DX: I13.0 Hypertensive heart and chronic kidney disease with heart failure and stage 1 through stage 4 chronic kidney disease, or unspecified chronic kidney disease (principal); I50.23 Acute on chronic systolic (congestive) heart failure; I21.4 Non-ST elevation (NSTEMI) myocardial infarction; J96.01 Acute respiratory failure with hypoxia; J44.1 Chronic obstructive pulmonary disease with (acute) exacerbation; N17.9 Acute kidney failure, unspecified; E87.20 Acidosis, unspecified; N18.9 Chronic kidney disease, unspecified; V89.2XXA Person injured in unspecified motor-vehicle accident, traffic, initial encounter; I35.0 Nonrheumatic aortic (valve) stenosis; E78.5 Hyperlipidemia, unspecified; D63.1 Anemia in chronic kidney disease; N52.9 Male erectile dysfunction, unspecified; E03.9 Hypothyroidism, unspecified; I25.10 Atherosclerotic heart disease of native coronary artery without angina pectoris; R73.9 Hyperglycemia, unspecified; I25.5 Ischemic cardiomyopathy; Z79.82 Long term (current) use of aspirin; Z79.02 Long term (current) use of antithrombotics/antiplatelets; Z79.51 Long term (current) use of inhaled steroids; Z85.828 Personal history of other malignant neoplasm of skin; Z95.810 Presence of automatic (implantable) cardiac defibrillator
CPT/HCPCS: 0241U; 36415; 36416; 36600; 70450; 71045; 71250; 72125; 74176; 78452; 80051; 80053; 80061; 81001; 82330; 82805; 82962; 83036; 83605; 83735; 83880; 84100; 84145; 84443; 84484; 85025; 85610; 93005; 93306; 94640; 94660; 96372; 96374; 96375; 96376; 99285; A9500; J0280; J1650; J1940; J2470; J2785; J2919; J7626

== ENCOUNTER → 2024-07-28 13:55 | Outpatient (BNVA) | payer MEDICARE, SELFPAY | PROVIDERS: PCP Electrodiagnostic Medicine; Visit Provider Nurse Practitioner Family | DX: I25.10 Atherosclerotic heart disease of native coronary artery without angina pectoris (principal); I35.0 Nonrheumatic aortic (valve) stenosis; Z95.0 Presence of cardiac pacemaker; I13.0 Hypertensive heart and chronic kidney disease with heart failure and stage 1 through stage 4 chronic kidney disease, or unspecified chronic kidney disease; N18.9 Chronic kidney disease, unspecified; I50.9 Heart failure, unspecified | CPT/HCPCS: 99213 ==

== ENCOUNTER 2024-08-25 22:48 | Inpatient (IN) | payer MEDICARE, SELFPAY ==
--- NOTE | 2024-08-25 22:56 | XRR_ITS ---
PROCEDURE INFORMATION: Exam: XR Chest Exam date and time: 08/25/2024 11:28 PM Age: 78 years old Clinical indication: Cough and fever and shortness of breath; Prior surgery; Surgery date: 6+ months; Surgery type: Pacer TECHNIQUE: Imaging protocol: Radiologic exam of the chest. Views: 1 view. COMPARISON: CR XR chest 1V portable [id number] 07/05/2024 8:50 AM FINDINGS: Limitations: Portions of the lower chest including both costophrenic sulci are cut off on this exam Tubes, catheters and devices: There is transvenous AICD in place with leads in appropriate position. Lungs: There is increasing infiltrates in the lower lobe specially right lower lobe worrisome for pneumonia. Pleural spaces: Unremarkable. No pleural effusion. No pneumothorax. Heart/Mediastinum: The heart is moderately enlarged. Bones/joints: Unremarkable. XR/XR chest 1V portable [id number] IMPRESSION: Right lower lobe pneumonia.
--- NOTE | 2024-08-25 22:56 | ECG_ITS ---
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
[2024-08-25 23:02] VITALS: BP 167/66; PULSE 68; RESP 24; TEMP 36.6; O2SAT 93; BMI 29.8
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
[2024-08-25 23:21] LABS: ABG PCO2 31.7 mmHg (35-45); ABG PH Result 7.29 (7.35-7.45); Alveolar-Arterial Oxygen Gradi 5.5 mmHg (5-10); Arterial Blood Gas Hematocrit 49.3 % (42-52); Base Excess ABG -10.3 mmol/L (-2.0-2.0); Blood Gas Allen Test Pos; Blood Gas Operator Identificat BUSJA; Blood Gas Sample Site Radial, right; Blood Gas Sample Type Arterial; Carboxyhemoglobin 1.2 %THgb (0.4-20.1); HCO3 ABG 15.1 mmol/L (22-26); HGB O2 Sat 89.6 % (95-100); Ionized Calcium Level - ABG 1.1 mmol/L (1.1-1.4); Methemoglobin 0.9 % (0.4-1.5); Oxygen Device NC; Oxygen Saturation ABG 91.5; PO2 ABG 67.2 mmHg (80.0-100.0); Potassium Level - ABG 4.2 mmol/L (3.5-5.0); Total Hemoglobin 16.1 g/dL (14-18)
[2024-08-25 23:27] LABS: Basophils # 0.1 10^3/uL (0.0-0.1); Basophils % 0.6 %; Eosinophils # 0.3 10^3/uL (0.0-0.8); Eosinophils % 1.5 %; Hematocrit 48.7 % (37-53); Lymphocytes # 4.1 10^3/uL (0.8-4.8); Lymphocytes % 22.1 %; Mean Corpuscular HGB Conc 32.2 g/dL (30-55); Mean Corpuscular Hemoglobin 30.4 pg (27-33); Mean Corpuscular Volume 94.4 fl (82-101); Mean Platelet Volume 11.5 fL (7.4-10.4); Monocytes # 0.7 10^3/uL (0.2-0.9); Monocytes % 3.9 %; Neutrophils # 13.29 10^3/uL (1.8-7.7); Neutrophils % 71.1 %; Nucleated Red Blood Cells % 0 %; Platelet Count 227 10^3/cmm (157-399); Red Blood Count 5.16 10^6/uL (3.85-5.65); White Blood Count 18.68 10^3/uL (3.29-11.43)
[2024-08-25 23:45] LABS: Troponin(5th) Baseline 75 ng/L (0-15)
[2024-08-25 23:53] VITALS: BP 129/64; PULSE 60; RESP 18; O2SAT 93
[2024-08-25 23:56] VITALS: BP 129/64; O2SAT 92
[2024-08-25 23:56] LABS: Alanine Aminotransferase 10 U/L (0-41); Albumin Level 4.4 g/dL (3.5-5.2); Alkaline Phosphatase 87 U/L (40-130); Anion Gap 24.1 (5-19); Aspartate Amino Transferase 17 U/L (0-40); Blood Urea Nitrogen 33 mg/dL (8-23); Calcium 9.2 mg/dL (8.5-10.5); Carbon Dioxide 20 mmol/L (22-29); Chloride 95 mmol/L (98-107); Creatinine Clr Calc Pharmacy 30.2666; Globulin 2.8 g/dL (1.3-4.6); Glucose 291 mg/dL (65-115); NT Pro B Type Natriuretic Pept 13418 pg/mL (0-450); Osmolality Calculated 298 mOsm/kg (285-295); Potassium 4.1 mmol/L (3.5-5.1); Sodium 135 mmol/L (136-145); Total Bilirubin 0.6 mg/dL (0.15-1.2); Total Protein 7.2 g/dL (6.6-8.7)
[2024-08-25 23:59] LABS: Lactic Sepsis W/Reflex 4.6 mmol/L (0.5-2.2)
[2024-08-26] VITALS (67 sets, daily range): BP systolic 97–135; BP diastolic 46–70; PULSE 59–89; RESP 14–38; TEMP 36.4–36.8; O2SAT 86–99; BMI 27.1
[2024-08-26 00:04] LABS: Influenza A NEGATIVE (Negative); Influenza B NEGATIVE (Negative); SARS-CoV-2 PCR NEGATIVE (Negative)
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
[2024-08-26 00:16] LABS: Respiratory Syncytial Virus Ce POSITIVE (Negative)
[2024-08-26] MEDS: methylPREDNISolone sod succ 125 mg/2 mL INJ IVP (00:25)
[2024-08-26] MEDS: doxycycline 100 MG in sodium chloride 0.9% (plus) 100 ML IV (00:25)
[2024-08-26] MEDS: albuterol 2.5 mg/3 mL Neb INHALATION (00:35)
[2024-08-26] MEDS: ipratropium-albuterol 3 mL Neb INHALATION ×6 (00:35→20:24)
[2024-08-26 01:08] LABS: Reflex Lactate Order REFLEX LACTIC ORDERD
[2024-08-26] MEDS: AZITHROMYCIN ADD-Vantage 500 MG in 0.9% NaCl ADD-Vantage 250 ML 250 MG IV (01:22)
[2024-08-26 02:05] LABS: C Reactive Protein 3.1 mg/L (0.0-4.9); Lactic Acid level (Lactate) 2.8 mmol/L (0.5-2.2)
[2024-08-26 02:06] LABS: Troponin 5 2HR 106.7 ng/L (0-15); Troponin 5 2HR Delta 31.7 ABS# (0-10)
[2024-08-26 02:11] LABS: Procalcitonin 0.23 ng/mL (0-0.5)
[2024-08-26] MEDS: cefepime 2,000 mg SDV 2000 MG IVP (02:30)
[2024-08-26] MEDS: heparin 5,000 unit/mL INJ 1 mL 5000 UNIT SUBCUT ×2 (02:31→12:00)
--- NOTE | 2024-08-26 04:36 | ECG_ITS ---
[facility] Test Date: 2024-08-26 Pat Name: Juarez Delgado Department: Room: EDIP Gender: Male Pressing Department Supervisor: : [id number] Requested By: Mi Epstein Order Number: [id number] Christal MD: SIMA GUZMÁN Measurements Intervals [place] Rate: 60 P: -80 HI: 212 QRS: -69 QRSD: 189 T: 107 QT: 476 QTc: 476 Interpretive Statements ELECTRONIC ATRIAL PACEMAKER ELECTRONIC VENTRICULAR PACEMAKER ABNORMAL RHYTHM ECG Compared to ECG 08/25/2024 22:55:39 No significant changes Electronically Signed On 08-28-2024 19:36:18 EARLY HEAD START DIRECTOR by SIMA GUZMÁN [email or web address]
[2024-08-26 05:03] LABS: Troponin 5 6HR 148.1 ng/L (0-15); Troponin 5 6HR Delta 73.1 ng/L (0-12)
[2024-08-26 06:06] LABS: MRSA PCR OZH (swab) NOT DETECTED (Negative)
[2024-08-26] MEDS: methylPREDNISolone sod succ 40 mg/mL INJ IVP ×2 (06:28→12:00)
[2024-08-26] MEDS: aspirin 81 mg EC Tablet PO (06:29)
[2024-08-26] MEDS: clopidogrel 75 mg Tablet PO (06:29)
[2024-08-26] MEDS: FUROsemide 10 mg/mL SDV 4mL 40 MG IVP ×2 (06:29→18:15)
[2024-08-26] MEDS: budesonide 0.5 mg/2 mL Neb INHALATION ×2 (07:40→20:24)
[2024-08-26] MEDS: benzonatate 100 mg Capsule 200 MG PO (10:32)
[2024-08-26] MEDS: atorvastatin 40 mg Tablet PO (10:32)
[2024-08-26] MEDS: spironolactone 25 mg Tablet PO (10:32)
[2024-08-26] MEDS: carvedilol 3.125 mg Tablet PO ×2 (10:32→18:14)
[2024-08-26] MEDS: guaiFENesin 600 mg Tablet 1200 MG PO (10:32)
[2024-08-26] MEDS: levothyroxine 112 mcg Tablet PO (10:33)
[2024-08-26 16:03] LABS: Basophils % 0.2 %; Hematocrit 46.6 % (37-53); Lymphocytes # 1.1 10^3/uL (0.8-4.8); Lymphocytes % 7.7 %; Mean Corpuscular HGB Conc 31.5 g/dL (30-55); Mean Corpuscular Hemoglobin 29.9 pg (27-33); Mean Corpuscular Volume 94.7 fl (82-101); Mean Platelet Volume 11.7 fL (7.4-10.4); Monocytes # 0.4 10^3/uL (0.2-0.9); Neutrophils # 12.29 10^3/uL (1.8-7.7); Neutrophils % 88.5 %; Nucleated Red Blood Cells % 0 %; Platelet Count 189 10^3/cmm (157-399); Red Blood Count 4.92 10^6/uL (3.85-5.65); Red Cell Distribution Width 14.4 % (12.1-15.1); White Blood Count 13.88 10^3/uL (3.29-11.43)
[2024-08-26 16:35] LABS: Troponin T (5th) Once 115 ng/L (0-15)
--- NOTE | 2024-08-26 17:22 | P.PN_ITS ---
Subjective 2 Subjective: 78-year-old male with coronary artery disease last had PTCA August 2019. He states he had balloon and then subsequent showed that it had been occluded but with collaterals. Patient has AICD and EF of 20 to 25%. Patient admitted with inability to breathe and requiring oxygen now much improved. Troponins were weakly positive and peaked at 148 at 0426 AM then dropped to 115 at 1540 6 PM. Patient denies chest pain. He states he feels a little congested but otherwise is fine Patient has a chronic total LAD occlusion stent to the in 2020 chronic kidney disease following with sales office coordinator and [place] and stress test June 2024 now and Jody was considering Entresto and Jardiance but I do not see that the patient has had on his home med list Vitals/I&O/Wt Last Vital Signs Temp 97.5 F L 08/26/24 15:37 Pulse 64 08/26/24 15:37 Resp 17 08/26/24 15:37 BP 103/55 08/26/24 15:37 Pulse Ox 97 08/26/24 15:37 O2 Del Method Room Air 08/26/24 15:37 O2 Flow Rate 3 08/26/24 07:40 08/26/24 08/26/24 08/26/24 06:59 14:59 22:59 Intake Total 350 / 350 240 / 240 Balance 350 / 350 240 / 240 Weight last 48 hrs Weight 90.718 kg Weight 99.79 kg Physical Exam 2 Narrative: General well-developed well-nourished General Well-developed well-nourished modestly overweight male in no acute cardiopulmonary distress CV regular rate and rhythm Lungs coarse breath sounds throughout with mild inspiratory and x-ray wheezes and good air movement. Abdomen positive bowel sounds soft nontender Calves no tenderness supratip edema Data 08/26/24 15:46 08/25/24 23:09 Micro: Microbiology 08/26/24 01:05 Gram Stain - Final Sputum - Expectorated Sputum 08/25/24 23:09 Blood Culture - Preliminary Blood SPECIMEN COLLECTED 08/25/24 23:13 Blood Culture - Preliminary Blood SPECIMEN COLLECTED A&P Assessment and plan (1) Sepsis: Source: Right basilar community-acquired pneumonia SIRS: Tachypnea, leukocytosis Lactic acidosis noted No IV fluid bolus resuscitation due to heart failure with reduced ejection fraction exacerbation Panculture Start broad-spectrum antibiotics with pneumonia coverage Patient responded well to steroids and Rocephin plus azithromycin. He is wanting to go home but his troponin was elevated (2) Pneumonia: Check bacterial antigens Procalcitonin and CRP Sputum culture Start ceftriaxone/azithromycin He is off oxygen now anticipate discharge home on oral antibiotics (3) COPD with acute exacerbation: Start systemic steroids Pulmicort Schedule breathing treatments Improved change steroids to oral Decadron (4) Congestive heart failure: Acute on chronic heart failure exacerbation with reduced EF Telemetry monitoring Continue beta-casper Continue Aldactone Start IV diuresis Strict I's and O's Daily weights Stable (5) RSV infection: Take appropriate precautions Much improved with steroids (6) Chronic kidney disease: Renal function at baseline Strict I's and O's Daily weights Continue home bicarb tabs Stable (7) CAD (coronary artery disease): Coronary disease with underlying ischemic cardiomyopathy status post IVCD placement Continue DAPT and statin Patient with elevated troponin which did peak and no associated chest pain. Will treat with 1 dose of full dose Lovenox a day repeat labs in the morning and if troponin still trending downward with no chest pain he will be discharged home. EKG if no use as it is AV paced Qualifiers: Coronary Disease-Associated Artery/Lesion type: [place] artery [place] vs. transplanted heart: [place] heart Associated angina: angina presence unspecified Qualified Code(s): I25.10 - Atherosclerotic heart disease of [place] coronary artery without angina pectoris Plan DVT prophylaxis: H Lovenox PDMP PDMP Reviewed: Not Reviewed Attestations 2 Medical Necessity Statement*: Coronary artery disease and pneumonia with elevated troponin monitoring 1 more night for clinical data and lab follow-up Coding Level of Care Code 93074 Diagnoses Sepsis A41.9 Pneumonia J18.9 COPD with acute exacerbation J44.1 Congestive heart failure I50.9 RSV infection B33.8 Chronic kidney disease N18.9 Coronary artery disease involving [place] coronary artery of [place] heart, angina presence unspecified I25.10 Coronary Disease-Associated Artery/Lesion type: [place] artery [place] vs. transplanted heart: [place] heart Associated angina: angina presence unspecified Time Spent (min) 55
[2024-08-26 17:56] LABS: Alanine Aminotransferase 10 U/L (0-41); Alkaline Phosphatase 68 U/L (40-130); Aspartate Amino Transferase 17 U/L (0-40); Blood Urea Nitrogen 41 mg/dL (8-23); Calcium 8.7 mg/dL (8.5-10.5); Carbon Dioxide 19 mmol/L (22-29); Chloride 101 mmol/L (98-107); Creatinine Clr Calc Pharmacy 30.2047; Glucose 107 mg/dL (65-115); Osmolality Calculated 293 mOsm/kg (285-295); Sodium 136 mmol/L (136-145); Total Bilirubin 0.8 mg/dL (0.15-1.2)
[2024-08-26 17:57] LABS: Lactate (Lactic Acid level) 3.2 mmol/L (0.5-2.2)
[2024-08-26 18:00] LABS: Anion Gap 20.3 (5-19); Potassium 4.3 mmol/L (3.5-5.1)
[2024-08-26] MEDS: cefepime 1,000 mg SDV 1000 MG IVP (18:13)
[2024-08-26] MEDS: sodium bicarbonate 650 mg Tablet PO ×3 (18:15→21:37)
[2024-08-26] MEDS: dexamethasone 4 mg/mL INJ PO (18:15)
[2024-08-26] MEDS: enoxaparin 100 mg/mL Syringe 90 MG SUBCUT (18:15)
[2024-08-27] VITALS (8 sets, daily range): BP systolic 98–113; BP diastolic 46–67; PULSE 54–80; RESP 16–54; TEMP 36.3–36.8; O2SAT 94–98
[2024-08-27 05:12] LABS: Basophils % 0.2 %; Hematocrit 38.6 % (37-53); Lymphocytes % 6.3 %; Mean Corpuscular HGB Conc 32.9 g/dL (30-55); Mean Corpuscular Hemoglobin 30.2 pg (27-33); Mean Corpuscular Volume 91.9 fl (82-101); Mean Platelet Volume 11.8 fL (7.4-10.4); Monocytes # 0.8 10^3/uL (0.2-0.9); Monocytes % 5.2 %; Neutrophils # 13.23 10^3/uL (1.8-7.7); Neutrophils % 87.6 %; Nucleated Red Blood Cells % 0 %; Platelet Count 172 10^3/cmm (157-399); Red Cell Distribution Width 14.3 % (12.1-15.1)
[2024-08-27 05:37] LABS: Troponin T (5th) Once 85 ng/L (0-15)
[2024-08-27 05:44] LABS: Anion Gap 23.1 (5-19); Blood Urea Nitrogen 47 mg/dL (8-23); Calcium 8.8 mg/dL (8.5-10.5); Carbon Dioxide 18 mmol/L (22-29); Chloride 100 mmol/L (98-107); Creatinine Clr Calc Pharmacy 27.5516; Glucose 119 mg/dL (65-115); Magnesium 2.2 mg/dL (1.7-2.3); Osmolality Calculated 297 mOsm/kg (285-295); Phosphorus 4.6 mg/dL (2.5-4.5); Potassium 4.1 mmol/L (3.5-5.1); Sodium 137 mmol/L (136-145)
[2024-08-27] MEDS: aspirin 81 mg EC Tablet PO (06:36)
[2024-08-27] MEDS: clopidogrel 75 mg Tablet PO (06:36)
[2024-08-27] MEDS: FUROsemide 10 mg/mL SDV 4mL 40 MG IVP (06:36)
[2024-08-27] MEDS: cefepime 1,000 mg SDV 1000 MG IVP (06:36)
[2024-08-27] MEDS: budesonide 0.5 mg/2 mL Neb INHALATION (07:25)
[2024-08-27] MEDS: ipratropium-albuterol 3 mL Neb INHALATION ×2 (07:25→11:19)
[2024-08-27] MEDS: atorvastatin 40 mg Tablet PO (08:51)
[2024-08-27] MEDS: azithromycin 250 mg Tablet 500 MG PO (08:51)
[2024-08-27] MEDS: sodium bicarbonate 650 mg Tablet PO (08:52)
[2024-08-27] MEDS: levothyroxine 112 mcg Tablet PO (08:52)
[2024-08-27] MEDS: carvedilol 3.125 mg Tablet PO (08:53)
[2024-08-27] MEDS: spironolactone 25 mg Tablet PO (08:53)
--- NOTE | 2024-08-27 10:20 | PC.SOCIAL ---
IMM Updated Updated pt on IMM. No questions voiced. Provided pt a copy. Initialed, dated, & timed a copy & placed in chart.
--- NOTE | 2024-08-27 11:27 | PM.DCS ---
Discharge Providers Date of Admission: 08/26/24 00:17 Date of Discharge: August 27, 2024 Attending Provider at Admission: Cecilio Estrada MD Attending Provider at Discharge: Kashmir Jara MD Consults: none Primary Care Provider: Gregorio Cunningham DO Diagnoses at Discharge Discharge Diagnosis (1) Sepsis: Details from hospital stay: Patient came in with right middle lobe pneumonia presumed bacterial superimposed on RSV viral infection which she was positive for patient has known LVEF 20 to 25% 07/04/2024. Lactic acid was 4.6 dropped to 2.8/2 consecutive checks trending down so not further testing Status: Acute (2) Pneumonia: Details from hospital stay: Patient was treated with cefepime and azithromycin with rapid improvement and weaned off oxygen. He will have this substituted for cefdinir 300 mg twice a day for another 6 days and finish azithromycin for another 4 days Chest x-ray shows right lower lobe pneumonia Status: Acute (3) COPD with acute exacerbation: Details from hospital stay: Treated with nebulizers. He has minimal wheezing and a prolonged respiratory phase at this time Status: Acute (4) Congestive heart failure: Details from hospital stay: Patient CHF was stable. Fluid bolus was not given due to low EF heart failure but he did well Troponin started mildly elevated and peaked at 145 but dropped back down to 85. No chest pain EKG AV pacing Status: Acute (5) RSV infection: Details from hospital stay: Initial oxygen requirements resolved with steroids patient is counseled to wear mask for 6 days to protect others Status: Acute (6) Chronic kidney disease: Details from hospital stay: Low serum bicarb and creatinine 2.5 and sodium 135 I increased his sodium bicarb to 650 mg twice a day from once a day Status: Chronic (7) CAD (coronary artery disease): Details from hospital stay: Troponins trended as above. Known heart failure in the setting of sepsis. This is not associate with any chest pain to suggest acute coronary syndrome. No further intervention at this time Status: Chronic Qualifiers: Associated angina: angina presence unspecified Coronary Disease-Associated Artery/Lesion type: [place] artery [place] vs. transplanted heart: [place] heart Qualified Code(s): I25.10 - Atherosclerotic heart disease of [place] coronary artery without angina pectoris Reason for Visit Reason for Visit: res distress Brief History: Juarez Delgado is a 78 year old male with a past medical history significant for heart failure with reduced ejection fraction of 20 to 25%, COPD, chronic kidney disease, hypothyroidism, aortic stenosis, coronary disease, multiple other comorbidities who presents to the emergency department with shortness of breath. Patient start symptoms started on Friday and have progressively worsened. Endorses associated cough that became productive today. Reports exertion worsens symptoms. Rest improves. Reports associated generalized malaise, fatigue and subjective fevers. He reports has been active in the community but is unsure about specific sick contacts. He was seen by PCP on Friday and started on prednisone and Augmentin. Hospital Course Hospital Course Patient was in need of oxygen and admitted to the hospital. He had leukocytosis lactic acidosis consistent with sepsis. BNP elevated but in the setting of heart failure and sepsis not really interpretable. Patient was RSV positive but also had right middle and lower lobe infiltrate seen on chest x-ray consistent with bacterial pneumonia. He was treated with cefepime and azithromycin. Mucolytic's nebulizers and Decadron were given. Patient rapidly improved and weaned off oxygen by the first day. He was noted to have elevated troponin which was trended to a peak of 145 and then down to 85. Patient has had no chest pain. His breathing is much improved. He does have some nasal congestion treated with [place] nasal spray and lung congestion treated with Decadron plus guaifenesin. Patient has albuterol inhaler at home Physical Exam Narrative: General Well-developed well-nourished male in no acute cardiopulmonary stress CV regular rate and rhythm Lungs good air movement with there is a prolonged x-ray phase and ends expiratory squeaks and a few rhonchi. Abdomen positive bowel sounds soft Calves no tenderness or pedal edema Mood and affect are normal Discharge Data Studies Completed and Pending Completed Studies During Hospitalization Category Date Time Status XR chest 1V portable [id number] Stat Exams 08/25/24 22:56 Completed Pending at discharge Category Date Time Status Bacterial Antigen Routine Lab 08/26/24 00:44 Uncollected Blood Culture Stat Lab 08/25/24 23:09 Results Sputum Culture and Gram Stain Routine Lab 08/26/24 01:05 Results Radiology Impressions Chest X-Ray 08/25/24 22:56 IMPRESSION: Right lower lobe pneumonia. Laboratory Results WBC 15.10 10^3/uL (3.29-11.43) H 08/27/24 04:44 RBC 4.20 10^6/uL (3.85-5.65) 08/27/24 04:44 Hgb 12.70 g/dL (11.27-16.99) 08/27/24 04:44 Hct 38.6 % (37-53) 08/27/24 04:44 MCV 91.9 fl (82-101) 08/27/24 04:44 MCH 30.2 pg (27-33) 08/27/24 04:44 MCHC 32.9 g/dL (30-55) 08/27/24 04:44 RDW 14.3 % (12.1-15.1) 08/27/24 04:44 Plt Count 172 10^3/cmm (157-399) 08/27/24 04:44 MPV 11.8 fL (7.4-10.4) H 08/27/24 04:44 Neut % (Auto) 87.6 % 08/27/24 04:44 Lymph % (Auto) 6.3 % 08/27/24 04:44 [place] % (Auto) 5.2 % 08/27/24 04:44 Eos % (Auto) 0.0 % 08/27/24 04:44 Baso % (Auto) 0.2 % 08/27/24 04:44 Neut # (Auto) 13.23 10^3/uL (1.8-7.7) H 08/27/24 04:44 Lymph # (Auto) 1.0 10^3/uL (0.8-4.8) 08/27/24 04:44 [place] # (Auto) 0.8 10^3/uL (0.2-0.9) 08/27/24 04:44 Eos # (Auto) 0.0 10^3/uL (0.0-0.8) 08/27/24 04:44 Baso # (Auto) 0.0 10^3/uL (0.0-0.1) 08/27/24 04:44 Nucleated RBC % (auto) 0 % 08/27/24 04:44 Nucleated RBCs # 0.0 /100WBC 08/27/24 04:44 Specimen Type Arterial 08/25/24 23:11 Sample Site Radial, right 08/25/24 23:11 ABG pH 7.29 (7.35-7.45) L 08/25/24 23:11 ABG pCO2 31.7 mmHg (35-45) L 08/25/24 23:11 ABG pO2 67.2 mmHg (80.0-100.0) L 08/25/24 23:11 ABG HCO3 15.1 mmol/L (22-26) L 08/25/24 23:11 ABG O2 Saturation 91.5 08/25/24 23:11 ABG Base Excess -10.3 mmol/L (-2.0-2.0) L 08/25/24 23:11 Jae Test Pos 08/25/24 23:11 A-a O2 Gradient 5.5 mmHg (5-10) 08/25/24 23:11 Hematocrit 49.3 % (42-52) 08/25/24 23:11 Hgb O2 Saturation 89.6 % (95-100) L 08/25/24 23:11 Carboxyhemoglobin 1.2 %THgb (0.4-20.1) 08/25/24 23:11 Methemoglobin 0.9 % (0.4-1.5) 08/25/24 23:11 Total Hemoglobin 16.1 g/dL (14-18) 08/25/24 23:11 Sodium 135.0 mmol/L (131-143) 08/25/24 23:11 Potassium 4.2 mmol/L (3.5-5.0) 08/25/24 23:11 Glucose 363.0 mg/dL (70-115) H 08/25/24 23:11 Ionized Calcium 1.1 mmol/L (1.1-1.4) 08/25/24 23:11 O2 Delivery Device Nc 08/25/24 23:11 O2 Liters/Min 4.0 % 08/25/24 23:11 Litigation Attorney ID Busja 08/25/24 23:11 Sodium 137 mmol/L (136-145) 08/27/24 04:44 Potassium 4.1 mmol/L (3.5-5.1) 08/27/24 04:44 Chloride 100 mmol/L (98-107) 08/27/24 04:44 Carbon Dioxide 18 mmol/L (22-29) L 08/27/24 04:44 Anion Gap 23.1 (5-19) H 08/27/24 04:44 BUN 47 mg/dL (8-23) H 08/27/24 04:44 Creatinine 2.6 mg/dL (0.7-1.2) H 08/27/24 04:44 GFR Calculation Not Reportable 08/27/24 04:44 Glucose 119 mg/dL (65-115) H 08/27/24 04:44 Calculated Osmolality 297 mOsm/kg (285-295) H 08/27/24 04:44 Lactic Acid 4.6 mmol/L (0.5-2.2) H* 08/25/24 23:09 Lactic Acid (Sepsis) 2.8 mmol/L (0.5-2.2) H 08/26/24 01:29 Lactate 3.2 mmol/L (0.5-2.2) H 08/26/24 17:27 Calcium 8.8 mg/dL (8.5-10.5) 08/27/24 04:44 Phosphorus 4.6 mg/dL (2.5-4.5) H 08/27/24 04:44 Magnesium 2.2 mg/dL (1.7-2.3) 08/27/24 04:44 Total Bilirubin 0.8 mg/dL (0.15-1.2) 08/26/24 17:27 AST 17 U/L (0-40) 08/26/24 17:27 ALT 10 U/L (0-41) 08/26/24 17:27 Alkaline Phosphatase 68 U/L (40-130) 08/26/24 17:27 Troponin T 5th Gen ng/L 85 ng/L (0-15) H 08/27/24 04:44 Troponin T Baseline 75 ng/L (0-15) H 08/25/24 23:09 Troponin T 120 Minute 106.7 ng/L (0-15) H 08/26/24 01:29 Delta Troponin T 31.7 ABS# (0-10) H* 08/26/24 01:29 Troponin T Hi Sens 6Hr 148.1 ng/L (0-15) H 08/26/24 04:26 Troponin T Hi Sens 6Hr Delta 73.1 ng/L (0-12) H* 08/26/24 04:26 C-Reactive Protein 3.1 mg/L (0.0-4.9) 08/26/24 01:29 NT-Pro-B Natriuret Pep 65494 pg/mL (0-450) H 08/25/24 23:09 Total Protein 7.0 g/dL (6.6-8.7) 08/26/24 17:27 Albumin 4.0 g/dL (3.5-5.2) 08/26/24 17:27 Globulin 3.0 g/dL (1.3-4.6) 08/26/24 17:27 Procalcitonin 0.23 ng/mL (0-0.5) 08/26/24 01:29 Nasal MRSA (PCR) Not detected (Negative) 08/26/24 04:45 Coronavirus (PCR) Negative (Negative) 08/25/24 23:09 Influenza A (PCR) Negative (Negative) 08/25/24 23:09 Influenza Type B (PCR) Negative (Negative) 08/25/24 23:09 RSV (PCR) Positive (Negative) A 08/25/24 23:09 Vitals Last Vital Signs Temp 97.7 F 08/27/24 07:39 Pulse 80 08/27/24 11:21 Resp 16 08/27/24 11:20 BP 113/67 08/27/24 07:39 Pulse Ox 98 08/27/24 11:20 O2 Del Method Room Air 08/27/24 11:20 O2 Flow Rate 3 08/26/24 07:40 Discharge Plan Discharge Patient Disposition: Home Condition: Stable Prescriptions: New sodium bicarbonate 650 mg Tablet 650 mg PO BID Qty: 60 0RF [place] Nasal 0.65 % Aerosol,[place] 1 spray nasal PRN PRN (Reason: Dryness) Qty: 1 0RF guaifenesin 1,200 mg tablet extended release 12hr 1,200 mg PO BID PRN (Reason: congestion) Qty: 20 0RF azithromycin 250 mg tablet 250 mg PO DAILY Qty: 4 0RF cefdinir 300 mg capsule 300 mg PO BID 6 Days Qty: 12 0RF dexamethasone 4 mg tablet 4 mg PO DAILY Qty: 4 0RF Continued cholecalciferol (vitamin D3) 50 mcg (2,000 unit) tablet 5,000 unit PO DAILY ferrous gluconate 324 mg (37.5 mg iron) tablet 324 mg PO DAILY levothyroxine 112 mcg capsule 112 mcg PO DAILY atorvastatin 40 mg tablet 40 mg PO DAILY spironolactone 25 mg tablet 25 mg PO DAILY carvedilol 3.125 mg tablet 3.125 mg PO BID Qty: 30 1RF clopidogrel [Plavix] 75 mg tablet 75 mg PO QAM Qty: 90 3RF aspirin 81 mg Tablet,Delayed Release (Dr/Ec) 81 mg PO QAM 30 Days Qty: 30 0RF nitroglycerin [Nitrostat] 0.4 mg tablet, sublingual 0.4 mg sublingual Q5M PRN (Reason: chest pain) 3 Days Qty: 30 3RF Rx Instructions: do not exceed 3 doses per episode magnesium 200 mg Tablet 400 mg PO DAILY Qty: 60 0RF albuterol sulfate 90 mcg/actuation HFA aerosol inhaler 2 inh inhalation Q8H PRN (Reason: shortness of breath or wheezing) Qty: 8.5 0RF furosemide 40 mg tablet 20 mg PO DAILY Qty: 30 0RF Discontinued sodium bicarbonate 650 mg Tablet 650 mg PO 1XD Discharge Orders: Discharge Order (Routine); Ordered 08/27/24 Ordered By: Kashmir Jara Referrals: Gregorio Cunningham DO [Primary Care Provider] - 2 weeks Discharge Diet: Usual diet and Cardiac Discharge Activity: Increase activity as tolerated Patient Instructions: Bacterial Pneumonia (GEN), RSV (Respiratory Syncytial Virus) Infection (GEN), Opioid Safety Activity Restrictions/Additional Instructions: Awake antibiotics as prescribed till gone Take Decadron 4 mg daily for 4 days The RSV is potentially contagious for another 6 days. Consider wearing a mask to protect others Resume activity as tolerated Discharge Attestations Time Spent in Discharge Care*: greater than 30 min Status at Discharge: Cognitive status at discharge: cognitively intact, Behavioral status at discharge: cooperative, Quality Metrics Clinical Quality Measures [ No reported AMI, CVA or VTE this stay] Coding Level of Care Code 74999 Diagnoses Sepsis A41.9 Pneumonia J18.9 COPD with acute exacerbation J44.1 Congestive heart failure I50.9 RSV infection B33.8 Chronic kidney disease N18.9 Coronary artery disease involving [place] coronary artery of [place] heart, angina presence unspecified I25.10 Associated angina: angina presence unspecified Coronary Disease-Associated Artery/Lesion type: [place] artery [place] vs. transplanted heart: [place] heart Time Spent (min) 50
== END 2024-08-27 12:40 | disposition home or self-care (01) | DRG 871 ==
LOC: ER 08-26 00:07 → ER IP 08-26 00:48 → MEDSURG 08-26 08:27
PROVIDERS: Admitting Provider Internal Medicine; Emergency Provider Emergency Medicine; PCP Electrodiagnostic Medicine; Visit Provider Internal Medicine
DX: A41.9 Sepsis, unspecified organism (principal); I50.23 Acute on chronic systolic (congestive) heart failure; J15.9 Unspecified bacterial pneumonia; J44.1 Chronic obstructive pulmonary disease with (acute) exacerbation; I13.0 Hypertensive heart and chronic kidney disease with heart failure and stage 1 through stage 4 chronic kidney disease, or unspecified chronic kidney disease; J44.0 Chronic obstructive pulmonary disease with (acute) lower respiratory infection; E87.20 Acidosis, unspecified; N18.9 Chronic kidney disease, unspecified; I25.10 Atherosclerotic heart disease of native coronary artery without angina pectoris; E78.5 Hyperlipidemia, unspecified; R09.02 Hypoxemia; E03.9 Hypothyroidism, unspecified; I35.0 Nonrheumatic aortic (valve) stenosis; Z79.899 Other long term (current) drug therapy; Z79.82 Long term (current) use of aspirin; Z79.02 Long term (current) use of antithrombotics/antiplatelets; Z79.890 Hormone replacement therapy; Z85.828 Personal history of other malignant neoplasm of skin; Z95.810 Presence of automatic (implantable) cardiac defibrillator; Z87.891 Personal history of nicotine dependence; Z11.52 Encounter for screening for COVID-19; Z95.5 Presence of coronary angioplasty implant and graft; B97.4 Respiratory syncytial virus as the cause of diseases classified elsewhere; I25.5 Ischemic cardiomyopathy
CPT/HCPCS: 36415; 36600; 71045; 80048; 80051; 80053; 82330; 82805; 83605; 83735; 83880; 84100; 84145; 84484; 85025; 86140; 87040; 87070; 87205; 87637; 93005; 94640; 96365; 96372; 96375; 99285; J0456; J0692; J1100; J1644; J1650; J1940; J2919; J3490; J7050; J7613; J7626; Q0144

== ENCOUNTER → 2024-09-08 10:17 | Outpatient (BNVA) | payer MEDICARE, SELFPAY | PROVIDERS: PCP Electrodiagnostic Medicine; Visit Provider Nurse Practitioner Family | DX: I25.10 Atherosclerotic heart disease of native coronary artery without angina pectoris (principal); I25.5 Ischemic cardiomyopathy; I35.0 Nonrheumatic aortic (valve) stenosis; I11.0 Hypertensive heart disease with heart failure; I50.20 Unspecified systolic (congestive) heart failure; Z87.891 Personal history of nicotine dependence | CPT/HCPCS: 99214 ==

== ENCOUNTER 2024-09-30 02:08 | Inpatient (IN) | payer MEDICARE, SELFPAY ==
[2024-09-30] VITALS (13 sets, daily range): BP systolic 107–159; BP diastolic 55–86; PULSE 58–110; RESP 16–30; TEMP 36.3–36.8; O2SAT 85–96; BMI 31.1; BMI 26.2
--- NOTE | 2024-09-30 02:17 | ECG_ITS ---
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 Measurements Intervals [place] Rate: 107 P: 215 NH: 131 QRS: -71 QRSD: 182 T: 131 QT: 351 QTc: 470 Interpretive Statements ELECTRONIC VENTRICULAR PACEMAKER ABNORMAL RHYTHM ECG Compared to ECG 08/26/2024 04:36:29 Atrial-paced complex(es) or rhythm no longer present Electronically Signed On 10-02-2024 07:44:21 CDT by Jhonathan Jara M.D. [email or web address] [id number]
--- NOTE | 2024-09-30 02:24 | XRR_ITS ---
PROCEDURE INFORMATION: Exam: XR Chest Exam date and time: 09/30/2024 2:29 AM Age: 78 years old Clinical indication: Cough and dyspnea and shortness of breath and wheezing; Additional info: SOB TECHNIQUE: Imaging protocol: Radiologic exam of the chest. Views: 1 view. COMPARISON: CR (CHEST, ) 08/25/2024 11:28 PM FINDINGS: Tubes, catheters and devices: AICD projects in satisfactory location. Lungs: Decreased bibasilar infiltrate/edema. Pleural spaces: Unremarkable. No pleural effusion. No pneumothorax. Heart/Mediastinum: Unremarkable. No cardiomegaly. Bones/joints: Unremarkable. XR/XR chest 1V portable [id number] IMPRESSION: Decreased bibasilar infiltrate/edema.
[2024-09-30 02:30] LABS: Basophils # 0.1 10^3/uL (0.0-0.1); Eosinophils # 0.6 10^3/uL (0.0-0.8); Eosinophils % 5.1 %; Hematocrit 53.1 % (37-53); Lymphocytes # 5.1 10^3/uL (0.8-4.8); Lymphocytes % 43.8 %; Mean Corpuscular Hemoglobin 30.1 pg (27-33); Mean Platelet Volume 11.6 fL (7.4-10.4); Monocytes # 0.7 10^3/uL (0.2-0.9); Monocytes % 6.3 %; Neutrophils # 4.99 10^3/uL (1.8-7.7); Neutrophils % 43.2 %; Nucleated Red Blood Cells % 0 %; Platelet Count 232 10^3/cmm (157-399); Red Blood Count 5.65 10^6/uL (3.85-5.65); Red Cell Distribution Width 14.4 % (12.1-15.1); White Blood Count 11.56 10^3/uL (3.29-11.43)
[2024-09-30] MEDS: ipratropium-albuterol 3 mL Neb INHALATION (02:33)
[2024-09-30] MEDS: methylPREDNISolone sod succ 125 mg/2 mL INJ IV (02:36)
[2024-09-30 02:47] LABS: Troponin(5th) Baseline 70 ng/L (0-15)
[2024-09-30 02:55] LABS: Anion Gap 19.1 (5-19); Blood Urea Nitrogen 24 mg/dL (8-23); Calcium 9.5 mg/dL (8.5-10.5); Carbon Dioxide 21 mmol/L (22-29); Chloride 101 mmol/L (98-107); Creatinine Clr Calc Pharmacy 40.6601; Glucose 139 mg/dL (65-115); NT Pro B Type Natriuretic Pept 4915 pg/mL (0-450); Osmolality Calculated 290 mOsm/kg (285-295); Potassium 4.1 mmol/L (3.5-5.1); Sodium 137 mmol/L (136-145)
[2024-09-30 02:59] LABS: Lactic Sepsis W/Reflex 2.5 mmol/L (0.5-2.2)
[2024-09-30 03:08] LABS: Influenza A NEGATIVE (Negative); Influenza B NEGATIVE (Negative); Respiratory Syncytial Virus Ce NEGATIVE (Negative); SARS-CoV-2 PCR NEGATIVE (Negative)
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
[2024-09-30 03:47] LABS: Troponin 5 2HR 61.93 ng/L (0-15)
[2024-09-30 03:49] LABS: Troponin 5 2HR Delta -8.07 ABS# (0-10)
[2024-09-30] MEDS: FUROsemide 10 mg/mL SDV 2mL 20 MG IVP (03:54)
[2024-09-30] MEDS: levofloxacin-dextrose 5 % 750 MG/150 ML PREMIX 100 MG IV (03:54)
[2024-09-30 04:17] LABS: Procalcitonin 0.06 ng/mL (0-0.5)
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
--- OUTSIDE RECORDS SUMMARY | 2024-09-30 04:20 | XMS_ITS | Encounter Summary ---
Author Organization [facility] Address [address] [place] [address] Care Team Providers Care Oil Well Engineer Name Role Phone Unavailable Primary Care Provider Unavailabl e Encounter Details Date Type Department Care Team (Late st Contact Info) Description 07/17/2006 Outpatient Historical [facility] [address] [place] [address] Trell Hanna MD [address] [address] Social History Tobacco Use Types Packs/Day Years Used Date Smoking Tobacco: Never Assessed Sex and Gender Information Value Date Recorded Sex Assigned at Not on file Legal Sex Male 6:00 AM IMPLEMENTATION PROJECT COORDINATOR Gender Identity Not on file Sexual Orientation Not on file documented as of this encounter Plan of Treatment Not on file documented as of this encounter Visit Diagnoses Not on filedocumented in this encounter
--- OUTSIDE RECORDS SUMMARY | 2024-09-30 04:20 | XMS_ITS | Continuity of Care Document ---
Author Organization [facility] Jerry Marley, [facility] ([facility]) Address [address] [place] [address] Care Team Providers Care Insurance Instructor Name Role Phone AURORA CUNNINGHAM Primary Care Provider Unavailabl e Assessment No assessment recorded. Plan of Treatment Reminders Order Date Submit Date Provider Last Modified By Organization Details Last Modified Time Details Appointments RECHECK 10 2024 09:00A M Aurora Cunningham, DO Not available Not available Not available Lab CMP, serum or plasma 2024 025 [facility], [address], [place], [address], 09/08/2024 14:39:46 lipid panel, blood 2024 025 [facility], [address], [facility] [address], [place], [address], 09/08/2024 14:39:48 CBC 2024 025 [facility], [address], [address], [place], [address], 09/08/2024 14:21:37 thyrotro pin, QN, serum or plasma 2024 025 [facility], [address], [facility] [address], [place], [address], 09/08/2024 16:02:26 Referral None recorded . Procedures None recorded . Surgeries None recorded . Imaging None recorded . Medication Orders None recorded . Patient TargetsNo targets recorded. Patient InstructionsNo instructions recorded. Reason for Referral None Reported. Problems Name Problem SNOMED Code Status Onset Date Resolution Date Notes Provider Name and Address Organization Details Recorded Time Heart block 066576120 Active 2022 Brayan mccracken [facility], Lucian.L.CAlthea 5 12:06:53 Myocardial infarction 15432999 Active 2022 Brayan mccracken [facility], L.L.CAlthea 5 12:07:20 Hypothyroid ism 17427799 Active 2022 Maia mccracken [facility], L.L.CAlthea 4 16:11:29 Ischemic congestive cardiomyopa thy 059004422 Active 2022 Maia mccracken [facility], L.L.CAlthea 4 16:11:29 Chronic kidney disease stage 4 563938692 Active 2022 Maia mccracken [facility], L.L.C. 4 16:11:29 Essential hypertensio n 65623165 Active 2022 Maia Ortiz [facility], L.L[facility]. 4 16:11:29 Chest pain 48737659 Active 2022 Maia mccracken [facility], [facility]. 4 16:11:29 Coronary atheroscler osis 645458129 Active 2023 Maia mccracken [facility], L.L[facility]. 4 16:11:29 Congestive heart failure 14874396 Active 2023 Maia mccracken [facility], L.L[facility]. 4 16:11:29 Bilateral atheroscler osis of arteries of lower limbs 4148561434747 9107 Active 2023 Maia mccracken [facility], L.L[facility]. 4 16:11:29 Hypertensiv e heart disease with congestive heart failure 7068457 Active 2023 Maia Flynntimothy mccracken [facility], Jerry 4 16:11:29 Nicotine dependence 12332264 Active 2023 Maia Diana mccracken [facility], Jerry 4 16:11:29 Chronic obstructive pulmonary disease 00491094 Active 2023 Maia Flynne kaykay [facility], NahomyLAltheaCAlthea 4 16:11:29 Right side sciatica 4474781893246 01 Active 2023 Aurora Cunningham [address], [address] [place] [address] 5, [facility] 4 17:41:58 Dehydration 41517402 Active [address], [address], [facility], Jerry 4 11:51:24 Hyperlipide toñito 71397863 Active 2015 Aurora Cunningham [address], [address], [facility] 4 17:31:19 Pneumonia 147474431 Active [address], [address], [facility], NahomyLAltheaCAlthea 5 10:38:41 Notes:Some problems listed i n Documents: #[id number], #[id number] could not be added to this patient's chart. Please review these documents and add these problems to the patient's chart manually as needed. Problem Notes None recorded. Procedures Surgical History Date Name Laterality Status Provider Name and Address Organization Details Recorded Time 01/29/20 23 jr cryo warts completed Aurora CunninghamDO [address] [place], [address], [place] [facility], Jerry 01/28/2023 09:54:06 implantation of internal cardiac defibrillator completed Miller Newellell [facility], Jerry 09/07/2024 12:31:53 Imaging Results None recorded. Procedure Notes None recorded. Medical Equipment None Reported. Allergies No known drug allergies Medications Name Sig Start Date Stop Date Status Note LastModified by Organization Details LastModified Time furosemid e 40 mg tablet TAKE 1 TABLET BY MOUTH TWICE DAILY 03/04 completed Not Available Not Available Not Available atorvasta tin 40 mg tablet TAKE 1 TABLET BY MOUTH IN THE MORNING active Not Available Not Available No t Available fluticaso ne 250 mcg-salme terol 50 mcg/dose blistr powdr for inhalatio n INHALE 1 DOSE BY MOUTH TWICE DAILY 10/17 completed Not Available Not Available Not Available carvedilo l 6.25 mg tablet TAKE 1 TABLET BY MOUTH TWICE DAILY WITH A MEAL/MOE D 08/24 completed Not Available Not Available Not Available azithromy vinh 250 mg tablet TAKE 1 TABLET BY MOUTH ONCE DAILY FOR BRONCHIT IS 09/07 completed Not Available Not Available Not Available sucralfat e 1 gram tablet TAKE 1 TABLET BY MOUTH TWICE DAILY 03/07 completed Not Available Not Available Not Available prednison e 20 mg tablet TAKE 1 TABLET BY MOUTH ONCE DAILY FOR 7 DAYS 09/07 completed Not Available Not Available Not Available metolazon e 5 mg tablet Take 1 tablet twice a week by oral route for 14 days. 09/07 completed On Mondays and s Not Available Not Available Not Available potassium chloride ER 10 mEq tablet,ex tended release Take 10 milliequ ivalents by oral route. 01/05 completed Not Available Not Available Not Available clopidogr el 75 mg tablet TAKE 1 TABLET BY MOUTH IN THE MORNING active Not Available Not Available No t Available allopurin ol 100 mg tablet TAKE 1 TABLET BY MOUTH ONCE DAILY 12/18 completed Not Available Not Available Not Available sulfameth oxazole 800 mg-trimet hoprim 160 mg tablet TAKE 1 TABLET BY MOUTH TWICE DAILY 01/28 completed Not Available Not Available Not Available aspirin 81 mg tablet,de layed release 81 mg by oral route. active Not Available Not Available No t Available spironola ctone 25 mg tablet TAKE 1 TABLET BY MOUTH ONCE DAILY active Not Available Not Available No t Available carvedilo l 3.125 mg tablet Take 1 tablet twice a day by oral route for 90 days. 2024 active Not Available Not Available Not Avai lable levothyro xine 75 mcg tablet Take 75 ugs by oral route. 01/05 completed Not Available Not Available Not Available levothyro xine 100 mcg tablet TAKE 1 TABLET BY MOUTH ONCE DAILY IN THE MORNING 09/07 completed Not Available Not Available Not Available sodium bicarbona te 650 mg tablet TAKE 1 TABLET BY MOUTH DAILY active Not Available Not Available No t Available benzonata te 100 mg capsule TAKE 1 CAPSULE BY MOUTH THREE TIMES DAILY NEEDED FOR COUGH FOR 15 DAYS 10/17 completed Not Available Not Available Not Available pantopraz ole 40 mg tablet,de layed release TAKE 1 TABLET BY MOUTH TWICE DAILY 10/17 completed Not Available Not Available Not Available ferrous sulfate 325 mg (65 mg iron) tablet 325 mg by oral route. active Not Available Not Available No t Available dexametha sone 4 mg tablet TAKE 1 TABLET BY MOUTH ONCE DAILY 09/07 completed Not Available Not Available Not Available nitroglyc baltazar 0.4 mg sublingua l tablet DISSOLVE ONE TABLET UNDER THE TONGUE EVERY 5 MINUTES NEEDED FOR CHEST PAIN. DO NOT EXCEED A TOTAL OF 3 DOSES IN 15 MINUTES active Not Available Not Available No t Available furosemid e 20 mg tablet TAKE 1 TABLET BY MOUTH TWICE DAILY DIRECTED FOR SWELLING AND WATER RETENTIO N active Not Available Not Available No t Available Viagra 100 mg tablet as needed 09/10 completed 0; Recorded 09/18/19 23 8:08AM by Dianna Noonan, Office Visit; Not Available Not Available Not Available levofloxa vinh 750 mg tablet TAKE 1 TABLET BY MOUTH ONCE DAILY FOR 6 DAYS 10/17 completed Not Available Not Available Not Available albuterol sulfate HFA 90 mcg/actua tion aerosol inhaler INHALE 2 PUFFS BY MOUTH EVERY 8 HOURS NEEDED active Not Available Not Available No t Available cefdinir 300 mg capsule TAKE 1 CAPSULE BY MOUTH TWICE DAILY FOR 6 DAYS 09/07 completed Not Available Not Available Not Available levothyro xine 112 mcg tablet TAKE 1 TABLET BY MOUTH ONCE DAILY active Not Available Not Available No t Available amoxicill in 875 mg-potass ium clavulana te 125 mg tablet TAKE 1 TABLET BY MOUTH TWICE DAILY FOR 10 DAYS 09/07 completed Not Available Not Available Not Available potassium chloride ER 10 mEq tablet,ex tended release(p art/cryst ) TAKE 1 TABLET BY MOUTH ONCE DAILY 03/04 completed Not Available Not Available Not Available magnesium active Not Available Not Gloria ilable Not Available aspirin daily 01/05 completed Not Available Not Available Not Available furosemid e two times daily 03/04 completed DM/sd; 34630; Recorded 09/09/19 2:45PM by Arleth Blancas (Qasim kirk through Aurora Cunningham DO), Annotati on/Adden dum; Refill Quantity : 180; Tablet; Not Available Not Available Not Available carvedilo l two times daily 03/04 completed 41945; Recorded 07/31/19 12:15PM by Brayan Butler (Qasim kirk through Aurora Cunningham DO), Office Visit; Not Available Not Available Not Available Vitamin D3 active Not Available Not Available Not Available THSC Levothyro xine Sodium every morning 03/04 completed DM/ky; Recorded 09/05/19 8:33AM by Aurora Cunningham DO, Office Visit; Refill Quantity : 90; Tablet; Not Available Not Available Not Available Potassium Chloride ER daily 03/04 completed DM/sd; Recorded 09/05/19 8:09AM by Dianna Noonan, Office Visit; Refill Quantity : 90; Tablet; Not Available Not Available Not Available Spiriva Respimat 2.5 mcg/actua tion solution for inhalatio n INHALE 2 SPRAY(S) BY MOUTH ONCE DAILY 03/04 completed Not Available Not Available Not Available Stiolto Respimat 2.5 mcg-2.5 mcg/actua tion solution for inhalatio n INHALE 2 PUFFS BY MOUTH ONCE DAILY 01/28 completed Not Available Not Available Not Available Vitals None Recorded Social History Question Answer Notes LastModified by Organizat ion Details LastModified Time Tobacco Smoking Status Former Smoker [facility] 09/27/2024 09:41:18 What Is Your Level Of Alcohol Consumption? Occasional [email or web address] Information not available 03/04/2023 Are You Blind Or Do You Have Difficulty Seeing? No [email or web address] Information not available 03/07/2023 What Is Your Level Of Caffeine Consumption? Moderate [email or web address] Information not available 09/27/2024 Are You Currently Employed? No [email or web address] Information not available 03/07/2023 Are You Deaf Or Do You Have Serious Difficulty Hearing? Yes [email or web address] Information not available 03/07/2023 Do You Or Have You Ever Used E-cigarettes Or Vape? Never Used Electronic Cigarettes [email or web address] Information not available 09/27/2024 When Did You Quit Smoking? 1-5yearssincel astcidelfinoette [email or web address] Information not available 09/27/2024 What Was The Date Of Your Most Recent Tobacco Screening? 09/27/2024 [email or web address] Information not available 09/27/2024 Do You Or Have You Ever Used Any Nicotine-free Cigarettes, Vape, Or Chewing Tobacco? No Information not available 09/27/2024 Do You Or Have You Ever Used Smokeless Tobacco? Former Smokeless Tobacco User Information not available 09/27/2024 Do You Use Any Illicit Or Recreational Drugs? No [email or web address] Information not available 03/04/2023 Has Tobacco Cessation Counseling Been Provided? No [email or web address] Information not available 03/07/2023 Do You Or Have You Ever Used Any Other Forms Of Tobacco Or Nicotine? Yes Information not available 09/27/2024 How Many Years Have You Used Smokeless Tobacco? 2 [email or web address] Information not available 09/27/2024 Sex: Unknown Functional Status Question Answer Note LastModified by Organizat ion Details LastModified Time Do you have difficulty walking or climbing stairs? No [email or web address] Information not available 03/07/2023 Do you have transportation difficulties? No [email or web address] Information not available 03/07/2023 Are you able to walk? YESWOREST [email or web address] Information not available 03/07/2023 Do you have difficulty doing errands alone? No Information not available 03/07/2023 Are you able to care for yourself? Yes [email or web address] Information not available 03/07/2023 Do you have difficulty dressing or bathing? No [email or web address] Information not available 03/07/2023 Mental Status Question Answer Note LastModified by Organization D etails LastModified Time Do you have difficulty concentrating, remembering or making decisions? No [email or web address] Information no t available 03/07/2023 Family History Relationship Description Onset Age of this Age Resolved Age Notes LastModified by Organization Details LastModified Time Father Primary malignant neoplasm of pharynx [email or web address] Not available 2024 09:48:04 Sister Malignant neoplasm of appendix [email or web address] Not available 2024 09:48:27 Brother Heart disease [email or web address] Not available 2024 09:48:36 Notes:Brother: Heart Disease Father: Cancer Sister: Cancer Throat Cancer- Father Medical History No medical history recorded. Immunizations Vaccine Type Date Status Note Provider Nam e and Address Organization Details Recorded Time Influenza, high-dose, quadrivalent, PF 1 completed Not Available [facility] 06/03/2023 10:25:15 Influenza, high-dose, quadrivalent, PF 2 completed Not Available [facility] 06/03/2023 10:25:16 COVID-19, mRNA, LNP-S, PF, 30 mcg/0.3 mL dose 1 completed Not Available [facility] 06/03/2023 10:25:16 COVID-19, mRNA, LNP-S, PF, 30 mcg/0.3 mL dose 1 completed Not Available [facility] 06/03/2023 10:25:16 COVID-19, mRNA, LNP-S, PF, 30 mcg/0.3 mL dose 1 completed Not Available [facility] 06/03/2023 10:25:16 COVID-19, mRNA, LNP-S, bivalent, PF, 30 mcg/0.3 mL dose 2 completed Not Available [facility] 06/03/2023 10:25:16 pneumococcal polysaccharide PPV23 9 completed Not Available [facility] 06/03/2023 10:25:16 Pneumococcal conjugate PCV 13 8 completed Not Available [facility] 06/03/2023 10:25:16 Influenza, high-dose, trivalent, PF 8 completed Not Available [facility] 06/03/2023 10:25:16 Influenza, high-dose, trivalent, PF 9 completed Not Available [facility] 06/03/2023 10:25:16 Influenza, split virus, quadrivalent, PF 8 completed Not Available [facility] 06/03/2023 10:25:16 Influenza, split virus, quadrivalent, PF 3 completed Aurora Cunningham DO [address] [place] [address], [address], [facility] 05/12/2023 09:46:48 Pneumococcal conjugate PCV20, polysaccharide VDF037 conjugate, adjuvant, PF 3 completed Aurora Cunningham DO [address] [place] [address], [address], [facility] 05/12/2023 09:46:48 Influenza, split virus, trivalent, PF 4 completed Aurora Cunningham DO [address] [place] [address], [address], [facility] 04/09/2024 17:46:06 Past Encounters Encounter ID Performer Location Encounter Start Date Encounter Closed Date Diagnosis/Indication Diagnosis SNOMED-CT Code Diagnosis ICD10 Code Diagnosis Note [id number] Aurora Cunningham DO [facility] ([facility]) [address] [place] [address] 08/24/2024 11:22:41 08/24/2024 15:55:19 Cough 33902962 R05.9 Covid/ Flu negative today. Counseled abx and steroid for Bronchitis . Chronic ki dney disease stage 4 087521756 N18.4 N25.81 stable. labs relatively unchaged. no change in meds. keep f/u with nephrology .04/07/24: lab today, continue following with Nephrology .09/10/23- Cr. decreased from 2.6 to 2.4 with GFR up from 25 to 28.5. GFR improved from 26 to 28.weight is holding steady. HE is to continue with Dr. Stinson Nephro.- recent Nephro visit, stable, f/u 4 months with them. remains poor/stage 4. : Cr. holding steady at. 2.5 with GFR of 26 which is slightly improved. Chronic ob structive pulmonary disease 95089156 J44.9 mild, chronic, continue albuterol Congestive heart failure 55544908 I50.[address]26[address] Jara, cardiology . Continue lasix 20mg bid and spironolac tone daily. monitor weight and SOB.cardio logy Coronary atherosclerosis 596314336 I25.119 continue care with cardiology Essential hypertension 27473848 I10 stable. continue coreg Hypertensi ve heart disease with congestive heart failure 2180683 I11.[address] Jara, cardiology . Continue lasix 20mg bid and spironolac tone daily. monitor weight and SOB.cardio logy Hypothyroidism 32693565 E03.9 Currently stable, continue levothyrox ine at current dose. Ischemic c ongestive cardiomyopathy 321772129 I25.5 I42.0 I42.9 continue lasix 20mg bid and spironolac tone daily. Continue with Dr. Jara. Nicotine dependence 5629 4008 F17.200 Z72.0 I counseled patient on smoking risks, hazards, complicati ons, and associated illnesses. We discussed smoking cessation options. The patient will work on cutting back but is not ready to quit. We spent 4 minutes discussing this. All questions were addressed. Chest pain 63745640 R07. 9 I20.9 stable. intermitte nt. continue prn nitro [id number] Aurora Cunningham DO [facility] ([facility]) [address] [place] [address] 09/07/2024 11:48:04 09/22/2024 14:31:14 Pneumonia 184685862 J18.9 Improving. finish abx. cotinue breathing execises. monitor for return of smptoms or CHF flair. [id number] CARMENZA CLEMENTS [facility] ([facility]) [address] [place] [address] 09/08/2024 13:56:15 09/09/2024 13:46:31 Essential hypertension 39338233 I10 stable. continue coreg Health Concerns Section Related Observation LastModified by Organization Detai ls LastModified Time None Recorded Concern Status LastModified by Organization Details LastModified Time None Recorded Payers Encounter Date Sequence Insurance Name Policy Number Policy Matta Covered Member ID Matta Member ID Guarantor Name 09/08/2024 1 [id number]/A DVANTAGE - PPO) [id number] Juarez Delgado [id number] Juarez Delgado
--- OUTSIDE RECORDS SUMMARY | 2024-09-30 04:20 | XMS_ITS | Encounter Summary ---
Author Organization [facility] Address [address] [place] [address] Care Team Providers Care Screw Machine Set Up Operator Name Role Phone Unavailable Primary Care Provider Unavailabl e Encounter Details Date Type Department Care Team (Late st Contact Info) Description 07/12/2006 Outpatient Historical [facility] Wound Care [address] 

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
--- OUTSIDE RECORDS SUMMARY | 2024-09-30 04:20 | XMS_ITS | Encounter Summary ---
Author Organization [facility] Address [address] [place] [address] Care Team Providers Care Performance Analyst Name Role Phone Unavailable Primary Care Provider Unavailabl e Encounter Details Date Type Department Care Team (Late st Contact Info) Description 07/17/[address] 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
--- OUTSIDE RECORDS SUMMARY | 2024-09-30 04:20 | XMS_ITS | Encounter Summary ---
Author Organization [facility] Address [address] [place] [address] Care Team Providers Care Construction Ironworker Helper Name Role Phone Unavailable Primary Care Provider Unavailabl e Encounter Details Date Type Department Care Team (Late st Contact Info) Description 06/16/2006 Outpatient Historical [facility] [address] [place] [address] Trell Hanna MD [address] [address] Social History Tobacco Use Types Packs/Day Years Used Date Smoking Tobacco: Never Assessed Sex and Gender Information Value Date Recorded Sex Assigned at Not on file 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
--- OUTSIDE RECORDS SUMMARY | 2024-09-30 04:20 | XMS_ITS | Continuity of Care Document ---
Author Organization [facility], [facility] ([facility]) Address [address] [place] [address] Care Team Providers Care Conduit Helper Name Role Phone AURORA CUNNINGHAM Primary Care Provider Unavailabl e Assessment Encounter Date Assessment Date Assessment LastModified by Organization Details LastModified Time 09/07/2024 09/07/2024 Document scribed by Brayan Butler Concaving Machine Operator. I was present during interview and exam. I have reviewed and agree with above documentation. Dr. Aurora Cunningham. Pt has been contacted by nursing/staff within 2 days of hospital discharge. I reviewed hospital records prior to seeing the patient today. I have reviewed tests/procedur es and diagnoses during hospital stay. I have reviewed and noted medications prior to admission as well as medication changes post admission. I have updated and reconciled medications post discharge today and meds are updated in EMR. I have also educated patient about medication changes and current medications. Please see hpi above and chart for detailed records. I have addressed all patient questions today. They express verbal understanding. [email or web address] Not available 09/07/2024 13:16:46 Plan of Treatment Reminders Order Date Submit Date Provider Last Modified By Organization Details Last Modified Time Details Appointments RECHECK 10 2024 09:00A Ibrahima Cunningham, DO Not available Not available Not available Lab None recorded . Referral None recorded . Procedures None recorded . Surgeries None recorded . Imaging None recorded . Medication Orders None recorded . Patient TargetsNo targets recorded. Patient InstructionsNo instructions recorded. Reason for Referral None Reported. Problems Name Problem SNOMED Code Status Onset Date Resolution Date Notes Provider Name and Address Organization Details Recorded Time Heart block 957079713 Active 2022 Brayan mccracken, [facility] 02/11/202 5 12:06:53 Myocardial infarction 01001857 Active 2022 Brayan Pandacb null, [facility] 5 12:07:20 Hypothyroid ism 00537021 Active 2022 Maia Ortiz null, [facility] 4 16:11:29 Ischemic congestive cardiomyopa thy 408658251 Active 2022 Maia Ortiz null, [facility] 4 16:11:29 Chronic kidney disease stage 4 239499037 Active 2022 Maia Ortiz null, [facility] 4 16:11:29 Essential hypertensio n 53500550 Active 2022 Maia mccracken, [facility] 4 16:11:29 Chest pain 81862105 Active 2022 Maia Ortiz [facility], [facility] 4 16:11:29 Coronary atheroscler osis 202863998 Active 2023 Maiajorge Flynne null, [facility] 4 16:11:29 Congestive heart failure 77806619 Active 2023 Maia Ortiz [facility], [facility] 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 4 16:11:29 Hypertensiv e heart disease with congestive heart failure 6239351 Active 2023 Maia Ortiz null, [facility] 4 16:11:29 Nicotine dependence 13725495 Active [address] [facility] 4 16:11:29 Chronic obstructive pulmonary disease 27677464 Active [address] [facility] 4 16:11:29 Right side sciatica 0925827611350 01 Active 2023 Aurora Cunningham [address], [address] [place] [address] 5, [facility] 4 17:41:58 Dehydration 00967723 Active 2023 Aurora Cunningham [place] [address] 5, [facility] 4 11:51:24 Hyperlipide toñito 18881610 Active 2015 Aurora Cunningham [address], [address] [place] [address] 5, [facility] 4 17:31:19 Pneumonia 295677118 Active 2024 Aurora Cunningham [address], [address] [place] [address] 5, [facility] 5 10:38:41 Notes:Some problems listed i n Documents: #[id number], #[id number] could not be added to this patient's chart. Please review these documents and add these problems to the patient's chart manually as needed. Problem Notes None recorded. Procedures Surgical History Date Name Laterality Status Provider Name and Address Organization Details Recorded Time 01/29/20 23 jr kayla alatorre completed Aurora Cunningham [address], [address] [place] [address], [facility] 01/28/2023 09:54:06 implantation of internal cardiac defibrillator [facility]/07/2024 12:31:53 Imaging Results None recorded. Procedure [...] e two times daily 03/04 completed DM/sd; 88819; Recorded 09/09/19 2:45PM by Arleth Blancas (Authori zed through Aurora Cunningham DO), Annotati on/Adden dum; Refill Quantity : 180; Tablet; Not Available Not Available Not Available carvedilo l two times daily 03/04 completed 21429; Recorded 07/31/19 12:15PM by Brayan Butler (Authori zeclarita through Aurora Cunningham DO), Office Visit; Not [...] Not Available Not Available Not Available Vitals Date Recorded Body height Body mass index (BMI) Body weight Oxygen saturation Oxygen saturation in Arterial blood by Pulse oximetry Heart rate Respiratory rate Systolic blood pressure Diastolic blood pressure Provider Name and Address Organization Details Last Updated DateTime 182.88 cm 26.6 kg/m2 99603.1 g 98 % 98 % 73 /min 18 /min 120 mm[Hg] 60 mm[Hg] Miller Orozco [facility] 12:34:44 Social History Question Answer Notes LastModified by Organizat ion Details LastModified Time Tobacco Smoking Status Former Smoker Maia Ortiz kaykay [facility] 09/27/2024 09:41:18 What Is Your Level Of Alcohol Consumption? Occasional [email or web address] Information not available 03/04/2023 Are You Blind Or Do You Have Difficulty Seeing? No [email or web address] Information not available 03/07/2023 What Is Your Level Of Caffeine Consumption? Moderate [email or web address] Information not available 09/27/2024 Are You Currently Employed? No [email or web address] Information not available 03/07/2023 Are You Deaf Or Do You Have Serious Difficulty Hearing? Yes [email or web address] Information not available 03/07/2023 Do You Or Have You Ever Used E-cigarettes Or Vape? Never Used Electronic Cigarettes Information not available 09/27/2024 When Did You Quit Smoking? 1-5yearssincel [email or web address] Information not available 09/27/2024 What Was The Date Of Your Most Recent Tobacco Screening? 09/27/2024 [email or web address] Information not available 09/27/2024 Do You Or Have You Ever Used Any Nicotine-free Cigarettes, Vape, Or Chewing Tobacco? No [email or web address] Information not available 09/27/2024 Do You Or Have You Ever Used Smokeless Tobacco? Former Smokeless Tobacco User Information not available 09/27/2024 Do You Use Any Illicit Or Recreational Drugs? No Information not available 03/04/2023 Has Tobacco Cessation Counseling Been Provided? No [email or web address] Information not available 03/07/2023 Do You Or Have You Ever Used Any Other Forms Of Tobacco Or Nicotine? Yes [email or web address] Information not available 09/27/2024 How Many Years Have You Used Smokeless Tobacco? 2 [email or web address] Information not available 09/27/2024 Sex: Unknown Functional Status Question Answer Note LastModified by Organizat ion Details LastModified Time Do you have difficulty walking or climbing stairs? No [email or web address] Information not available 03/07/2023 Do you have transportation difficulties? No [email or web address] Information not available 03/07/2023 Are you able to walk? YESWOREST [email or web address] Information not available 03/07/2023 Do you have difficulty doing errands alone? No [email or web address] Information not available 03/07/2023 Are you able to care for yourself? Yes [email or web address] Information not available 03/07/2023 Do you have difficulty dressing or bathing? No [email or web address] Information not available 03/07/2023 Mental Status Question Answer Note LastModified by Organization D etails LastModified Time Do you have difficulty concentrating, remembering or making decisions? No [email or web address] Information no t available 03/07/2023 Family History Relationship Description Onset Age of this Age Resolved Age Notes LastModified by Organization Details LastModified Time Father Primary malignant neoplasm of pharynx [email or web address] Not available 2024 09:48:04 Sister Malignant neoplasm of appendix [email or web address] Not available 2024 09:48:27 Brother Heart disease [email or web address] Not available 2024 09:48:36 Notes:Brother: Heart Disease Father: Cancer Sister: Cancer Throat Cancer- Father Medical History No medical history recorded. Immunizations Vaccine Type Date Status Note Provider Nam e and Address Organization Details Recorded Time Influenza, high-dose, quadrivalent, PF 1 completed Not Available [facility] 06/03/2023 10:25:15 Influenza, high-dose, quadrivalent, PF 2 completed Not Available [facility] 06/03/2023 10:25:16 COVID-19, mRNA, LNP-S, PF, 30 mcg/0.3 mL dose 1 completed Not Available [facility] 06/03/2023 10:25:16 COVID-19, mRNA, LNP-S, PF, 30 mcg/0.3 mL dose 1 completed Not Available [facility] 06/03/2023 10:25:16 COVID-19, mRNA, LNP-S, PF, 30 mcg/0.3 mL dose 1 completed Not Available [facility] 06/03/2023 10:25:16 COVID-19, mRNA, LNP-S, bivalent, PF, 30 mcg/0.3 mL dose 2 completed Not Available [facility] 06/03/2023 10:25:16 pneumococcal polysaccharide PPV23 9 completed Not Available [facility] 06/03/2023 10:25:16 Pneumococcal conjugate PCV 13 8 completed Not Available [facility] 06/03/2023 10:25:16 Influenza, high-dose, trivalent, PF 8 completed Not Available [facility] 06/03/2023 10:25:16 Influenza, high-dose, trivalent, PF 9 completed Not Available [facility] 06/03/2023 10:25:16 Influenza, split virus, quadrivalent, PF 8 completed Not Available [facility] 06/03/2023 10:25:16 Influenza, split virus, quadrivalent, PF 3 completed Aurora Cunningham DO [address] [place] [address], [phone], [facility] 05/12/2023 09:46:48 Pneumococcal conjugate PCV20, polysaccharide SGS313 conjugate, adjuvant, PF 3 completed Aurora Cunningham DO [address] [place] [address], [phone], [facility] 05/12/2023 09:46:48 Influenza, split virus, trivalent, PF 4 completed Aurora Cunningham DO [address] [place] [address], [phone], [facility] 04/09/2024 17:46:06 Past Encounters Encounter ID Performer Location Encounter Start Date Encounter Closed Date Diagnosis/Indication Diagnosis SNOMED-CT Code Diagnosis ICD10 Code Diagnosis Note [id number] Aurora Cunningham DO [facility] ([facility]) [address] [place] [address] 08/24/2024 11:22:41 08/24/2024 15:55:19 Cough 41776681 R05.9 Covid/ Flu negative today. Counseled abx and steroid for Bronchitis . Chronic ki dney disease stage 4 779370505 N18.4 N25.81 stable. labs relatively unchaged. no [...] slightly improved. Chronic ob structive pulmonary disease 94579338 J44.9 mild, chronic, continue albuterol Congestive heart failure 81748372 I50.[address]26[address] Jara, cardiology . Continue lasix 20mg bid and spironolac tone daily. monitor weight and SOB.cardio logy Coronary atherosclerosis 197630806 I25.119 continue care with cardiology Essential hypertension 63967850 I10 stable. continue coreg Hypertensi ve heart disease with congestive heart failure 9750569 I11.[address] Jara, cardiology . Continue lasix 20mg bid and spironolac tone daily. monitor weight and SOB.cardio logy Hypothyroidism 56051083 E03.9 Currently stable, continue levothyrox ine at current dose. Ischemic c ongestive cardiomyopathy 893713217 I25.5 I42.0 I42.9 continue lasix 20mg bid and spironolac tone daily. Continue with Dr. Jara. Nicotine dependence 5629 4008 F17.200 Z72.0 I counseled patient on smoking risks, hazards, complicati ons, and associated illnesses. We discussed smoking cessation options. The patient will work on cutting back but is not ready to quit. We spent 4 minutes discussing this. All questions were addressed. Chest pain 00678338 R07. 9 I20.9 stable. intermitte nt. continue prn nitro [id number] Aurora Cunningham DO [facility] ([facility]) [address] [place] [address] 09/07/2024 11:48:04 09/22/2024 14:31:14 Pneumonia 214947709 J18.9 Improving. finish abx. cotinue breathing execises. monitor for return of smptoms or CHF flair. Health Concerns Section Related Observation LastModified by Organization Detai ls LastModified Time None Recorded Concern Status LastModified by Organization Details LastModified Time None Recorded Payers Encounter Date Sequence Insurance Name Policy Number Policy Matta Covered Member ID Matta Member ID Guarantor Name 09/07/2024 1 [id number]IC[place]/A DVANTAGE - PPO) [id number] Juarez Delgado [id number] Juarez Danny Notes Date Note Type Note Provider Name and Address Organization Details Recorded Time 09/07/2024 text/html Pt presents for hospital f/u was admitted on 08/26/24 and d/c'd home on 08/27/24 Patient was in need of oxygen and admitted to the hospital. He had leukocytosis lactic acidosis consistent with sepsis. BNP elevated but in the setting of heart failure and sepsis not really interpretable.Frances ent was RSV positive but also had right middle and lower lobe infiltrate seen on chest x-ray consistent with bacterial pneumonia. He was treated with cefepime and azithromycin. Mucolytic's nebulizers and Decadron were given. Patient rapidly improved and weaned off oxygen by the first day. He was noted to have elevated troponin which was trended to a peak of 145 and then down to 85.Patient has had no chest pain. His breathing is much improved. He does have some nasal congestion treated with [place] nasal spray and lung congestion treated with Decadron plus guaifenesin. Patient has albuterol inhaler at home,Prescriptions :Newsodium bicarbonate 650 mg [id number] mg PO BID Qty: 60 0RFDeep Sea Nasal 0.65 % Aerosol,Spray1 spray nasal PRN PRN (Reason: Dryness) Qty: 1 0RFguaifenesin 1,200 mg tablet extended release 12hr1,200 mg PO BID PRN (Reason: congestion) Qty: 20 0RFazithromycin 250 mg sfufwr501 mg PO DAILY Qty: 4 0RFcefdinir 300 mg mg PO BID 6 Days Qty: 12 0RFdexamethasone 4 mg tablet4 mg PO DAILY Qty: 4 0R ====== Pt states that he is feeling better after his hospitalization, with no concerns.He is nearly finished with abx. Coughing, wheezing, RIZVI improving. He has lab ordered, prefers it be done here. Aurora Cunningham, DO [address] [place], [address], [facility], Jerry 09/22/2024 10:38:51
--- OUTSIDE RECORDS SUMMARY | 2024-09-30 04:20 | XMS_ITS | Encounter Summary ---
Author Organization [facility] Address [address] [place] [address] Care Team Providers Care Bell Clerk Name Role Phone Unavailable Primary Care Provider Unavailabl e Encounter Details Date Type Department Care Team (Late st Contact Info) Description 06/11/2006 Outpatient Historical [facility] [address] 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
--- OUTSIDE RECORDS SUMMARY | 2024-09-30 04:20 | XMS_ITS | Data Portability ---
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 I was present during interview and exam. I have reviewed and agree with above documentation. Dr. Aurora Arreaga. A Care Coordination Assessment form was filled out as part of this patient's office visit today. [email or web address] Not available 08/24/2024 12:02:09 09/07/2024 09/07/2024 Document scribed by Venus Ross Scribe. I was present during interview and exam. I have reviewed and agree with above documentation. Dr. Aurora Arreaga. Pt has been contacted by nursing/staff within 2 days of hospital discharge. I reviewed hospital records prior to seeing the patient today. I have reviewed tests/procedure s and diagnoses during hospital stay. I have [...] verbal understanding. [email or web address] Not available 09/07/2024 13:16:46 09/27/2024 09/27/2024 I reviewed recent records from nephrology, and added to chart. We discussed with the patient. [email or web address] Not available 09/27/2024 10:10:44 Plan of Treatment Reminders Order Date Submit Date Provider Last Modified By Organization Details Last Modified Time Details Appointments RECHECK 10 2024 09:00A M Aurora Arreaga, DO Not available Not available Not available Lab CMP, serum or plasma 2024 025 [facility], [address], [address], [place], [address], 09/08/2024 14:39:46 lipid panel, blood 2024 025 [facility], [address], [address], [place], [address], 09/08/2024 14:39:48 CBC 2024 025 [facility], [address], [address], [place], [address], 09/08/2024 14:21:37 thyrotrop in, QN, serum or plasma 2024 025 [facility], [address], [address], [place], [address], 09/08/2024 16:02:26 SARS CoV 2 RNA, QL, nasophary nx 2024 025 [email or web address] 7 [facility] [address] [place], [address], 08/24/2024 13:33:27 rapid flu (A+B), PCR 2024 025 [email or web address] 7 [facility] [address] [place], [address], 08/24/2024 13:33:27 CMP, serum or plasma 2024 025 [facility], [address], [address], [place], [address], 07/16/2024 10:34:58 CBC 2024 025 [facility], [address], [place], [address], 07/16/2024 09:52:21 phosphoru s, serum or plasma [address] [facility], [address] , [address], [place], [address], 07/20/2024 04:19:45 magnesium , serum or plasma [address] [facility], [address], [address], [place], [address], 07/20/2024 04:19:44 iron + TIBC + ferritin, serum [address] [employer] [facility], [address] , [address], [place], [address], 07/20/2024 04:19:42 pro BNP (pro B-type natriuret ic peptide), serum or plasma [address] [facility], [address] , [address], [place], [address], 07/20/2024 04:19:46 thyrotrop in, QN, serum or plasma 2024 025 [facility], [address], [address], [place], [address], 07/16/2024 10:35:04 Referral None recorded. Procedures None recorded. Surgeries None recorded. Imaging None recorded. Medication Orders carvedilo l 3.125 mg tablet 2024 025 [email or web address] 7 [facility], [address], [place], [address], 09/27/2024 10:11:09 amoxicill in 875 mg-potass ium clavulana te 125 mg tablet [address] [facility] 15, [address], [place], [address], 09/07/2024 12:31:14 prednison e 20 mg tablet [address] [facility] 15, [address], [place], [address], 09/07/2024 12:31:21 carvedilo l 3.125 mg tablet 2024 025 [email or web address] 7 [facility], [address], [place], [address], 08/24/2024 13:33:27 Patient TargetsNo targets recorded. Patient Instructions Encounter Date Encounter Id Patient Instructions Last Modified By Organization Details Last Modified Time 08/24/2024 [id number] smoking cessatio n counseling, greater than 3 minutes up to 10 minutes* [email or web address] Not available 08/31/2024 10:02:01 Reason for Referral None Reported. Results Created Date Observation Date Name Description Value Unit Range Abnormal Flag Note LastModifiedBy Organization Detail LastModifiedTime 07/05/20 24 07/05/2024 CMP, serum or plasm a BUN 41 Not Available [facility] [address] [facility] [address], [place], [address], 07/13/2024 15:33:51 07/05/20 24 07/05/2024 CMP, serum or plasm a creatinine 2.6 Not Available [facility] [address] [facility] [facility], [place], [address], 07/13/2024 15:33:51 07/05/20 24 07/05/2024 CMP, serum or plasm a glucose 139 Not Available [facility] [address] [facility] [facility] [address], [place], [address], 07/13/2024 15:33:51 07/16/1907/16/2024 CBC WBC 10.1 x10 4.5-10 .5 Not Available [facility] [address], [place], [address], 07/16/2024 09:52:21 07/16/1907/16/2024 CBC RBC 4.81 x10 4.30-5 .90 Not Available [facility] [address] [facility] [address], [place], [address], 07/16/2024 09:52:21 07/16/1907/16/2024 CBC HGB 15.0 g/dL 13.5-1 8.0 Not Available [facility] [address] [facility] [facility] [address], [place], [address], 07/16/2024 09:52:21 07/16/1907/16/2024 CBC HCT 42.8 % 35.0-6 0.0 Not Available [facility] [address] [facility] [address], [place], [address], 07/16/2024 09:52:21 07/16/1907/16/2024 CBC MCV 89.0 fL 80.0-9 9.9 Not Available [facility] [address] [facility] [facility] [address], [place], [address], 07/16/2024 09:52:21 07/16/1907/16/2024 CBC MCH 31.3 pg 27.0-3 2.0 Not Available [facility] [address] [facility] [facility] [address], [place], [address], 07/16/2024 09:52:21 07/16/1907/16/2024 CBC MCHC 35.1 g/dL 32.0-3 6.0 Not Available [facility] [address] [facility] [address], [place], [address], 07/16/2024 09:52:21 07/16/1907/16/2024 CBC RDW 15.0 % 11.5-1 4.5 high Not Available [facility] [address] [facility] [address], [place], [address], 07/16/2024 09:52:21 07/16/1907/16/2024 CBC plt 194.8 x10 150.0- 451.0 Not Available [facility] [address] [facility] [address], [place], [address], 07/16/2024 09:52:21 07/16/1907/16/2024 CBC lymphocytes % 17.7 % 20.0-5 0.0 low Not Available [facility] [address] [address], [place], [address], 07/16/2024 09:52:21 07/16/1907/16/2024 CBC granulcytes % 71.1 % 30.0-7 0.0 high Not Available [place] [facility] [address] [facility] [address], [place], [address], 07/16/2024 09:52:21 07/16/1907/16/2024 CBC monocytes % 5.1 % 2.0-16 .0 Not Available [facility] [address] [address], [place], [address], 07/16/2024 09:52:21 07/16/1907/16/2024 CBC granulcytes# 7.2 x10 Not Gloria ilable [facility] [address] [address], [place], [address], 07/16/2024 09:52:21 07/16/1907/16/2024 CBC lymphocytes # 1.8 x10 Not Available [facility] [address] [facility] [address], [place], [address], 07/16/2024 09:52:21 07/16/1907/16/2024 CBC monocytes # 0.5 x10 Not [facility] [address] [facility] [address], [place], [address], 07/16/2024 09:52:21 07/16/1907/16/2024 CMP (MALE ) glucose 166.0 mg/dL 60.0-9 9.0 high Not Available [facility] [address] [facility] [address], [place], [address], 07/16/2024 10:34:57 07/16/19 25 07/16/2024 CMP (MALE ) BUN (blood urea nitrogen) 42.0 mg/dL 10.0-2 6.0 high Not Available [facility] [address] [facility] [address], [place], [address], 07/16/2024 10:34:57 07/16/19 25 07/16/2024 CMP (MALE ) creatinine (serum) 2.3 mg/dL 0.4-1. 5 high Not Available [facility] [address] [address], [place], [address], 07/16/2024 10:34:57 07/16/19 25 07/16/2024 CMP (MALE ) BUN/creatini ne ratio 18.26 ratio Not Available [facility] [address] [facility] [address], [place], [address], 07/16/2024 10:34:57 07/16/19 25 07/16/2024 CMP (MALE ) eGFR calculated 29.5 Not Available [facility] [address] [facility] [address], [place], [address], 07/16/2024 10:34:57 07/16/19 25 07/16/2024 CMP (MALE ) total protein 7.8 g/dL 6.0-8. 5 Not Available [facility] [address] [facility], [place], [address], 07/16/2024 10:34:57 07/16/19 25 07/16/2024 CMP (MALE ) total bilirubin 0.7 mg/dL 0.2-1. 3 Not Available [facility] [address] [facility] [address], [place], [address], 07/16/2024 10:34:57 07/16/19 25 07/16/2024 CMP (MALE ) albumin 4.8 g/dL 3.5-5. 5 Not Available [facility] [address] [facility] [address], [place], [address], 07/16/2024 10:34:57 07/16/19 25 07/16/2024 CMP (MALE ) globulin 3.0 calc Not Available [facility] [address] [facility] [address], [place], [address], 07/16/2024 10:34:57 07/16/19 25 07/16/2024 CMP (MALE ) AST (SGOT) 29.0 U/L 0.0-46 .0 Not Available [facility] [address] [facility] [address], [place], [address], 07/16/2024 10:34:57 07/16/19 25 07/16/2024 CMP (MALE ) altv (SGPT) 20.0 U/L 13.0-6 9.0 normal Not Available [facility] [address] [facility] [address], [place], [address], 07/16/2024 10:34:57 07/16/19 25 07/16/2024 CMP (MALE ) A/G ratio 1.6 ratio Not Available [facility] [address] [facility] [address], [place], [address], 07/16/2024 10:34:57 07/16/19 25 07/16/2024 CMP (MALE ) ALP phos 65.0 U/L 30.0-1 40.0 normal Not Available [facility] [address] [facility] [address], [place], [address], 07/16/2024 10:34:57 07/16/19 25 07/16/2024 CMP (MALE ) calcium 9.3 mg/dL 8.4-10 .5 Not Available N[facility] [address] [facility] [address], [place], [address], 07/16/2024 10:34:57 07/16/19 25 07/16/2024 CMP (MALE ) sodium 134.0 mmol/ L 136.0- 145.0 low Not Available [facility] [address] [facility] [address], [place], [address], 07/16/2024 10:34:57 07/16/19 25 07/16/2024 CMP (MALE ) potassium 3.7 mmol/ L 3.5-5. 1 Not Available [facility] [address] [facility] [address], [place], [address], 07/16/2024 10:34:57 07/16/19 25 07/16/2024 CMP (MALE ) chloride 95.0 mmol/ L 98.0-1 10.0 abnormal Not Available [facility] [address] [facility] [address], [place], [address], 07/16/2024 10:34:57 07/16/19 25 07/16/2024 CMP (MALE ) C02 29.0 mmol/ L 22.0-3 1.0 Not Available [facility] [address] [facility] [address], [place], [address], 07/16/2024 10:34:57 07/16/19 25 07/16/2024 CMP (MALE ) anion gap 10.0 calc Not Available [facility] [address] [facility] [address], [place], [address], 07/16/2024 10:34:57 07/16/19 25 07/16/2024 CMP (MALE ) osmolality 290.3 calc Not Available [facility] [address] [facility] [address], [place], [address], 07/16/2024 10:34:57 07/16/19 25 07/16/2024 TSH TSH 6.51 uIU/m L 0.49-3 .82 high Not Available [facility] [address] [facility] [address], [place], [address], 07/16/2024 10:35:04 07/16/19 25 07/20/2024 IRON, TIBC AND YENY TIN PANEL iron, total 123 mcg/d L 50-180 normal Not Available [address], [address], 07/20/2024 04:19:42 07/16/19 25 07/20/2024 IRON, TIBC AND YENY TIN PANEL iron binding capacity 346 mcg/d L_(ca lc) 250-42 5 normal Not Available [employer] [address], [address], 07/20/2024 04:19:42 07/16/19 25 07/20/2024 IRON, TIBC AND YENY TIN PANEL % saturation 36 %_(ca lc) 20-48 normal Not Available [address], [address], 07/20/2024 04:19:42 07/16/19 25 07/20/2024 IRON, TIBC AND YENY TIN PANEL ferritin 102 NG/mL 24-380 normal Not Available [address], [address], 07/20/2024 04:19:42 07/16/19 25 07/20/2024 MAGNE SIUM magnesium 2.6 mg/dL 1.5-2. 5 high Not Available [address], [address], 07/20/2024 04:19:44 07/16/19 25 07/20/2024 PHOSP HATE ( PHOSP HORUS ) phosphate ( phosphorus) 3.9 mg/dL 2.1-4. 3 normal Not Available [address], [address], 07/20/2024 04:19:45 07/16/19 25 07/20/2024 NT PROBN P nt probnp 3881 pg/mL <450 high Not Available [address], [address], 07/20/2024 04:19:46 08/24/19 25 08/24/2024 rapid flu (A+B) , PCR Influenza A negati ve Not Available [facility] [address] [place] [address], [address], 08/24/2024 11:47:33 08/24/19 25 08/24/2024 rapid flu (A+B) , PCR Influenza B negati ve Not Available [facility] [address] [place] [address], [address], 08/24/2024 11:47:33 08/24/19 25 08/24/2024 SARS CoV 2 RNA, QL, nasop haryn x COVID negati ve Not Available [facility] [address] [place] [address], [address], 08/24/2024 11:47:31 09/08/19 25 09/08/2024 CBC WBC 11.5 x10 4.5-10 .5 high Not Available [facility] [address] [facility] [facility], [place], [address], 09/08/2024 14:21:37 09/08/19 25 09/08/2024 CBC RBC 4.53 x10 4.30-5 .90 Not Available [facility] [address] [facility] [address] [facility], [place], [address], 09/08/2024 14:21:37 09/08/19 25 09/08/2024 CBC HGB 14.3 g/dL 13.5-1 8.0 Not Available [facility] [address] [facility] [address] [facility], [place], [address], 09/08/2024 14:21:37 09/08/19 25 09/08/2024 CBC HCT 41.8 % 35.0-6 0.0 Not Available [facility] [address] [facility] [address] [facility], [place], [address], 09/08/2024 14:21:37 09/08/19 25 09/08/2024 CBC MCV 92.2 fL 80.0-9 9.9 Not Available [facility] [address] [facility] [address] [facility], [place], [address], 09/08/2024 14:21:37 09/08/19 25 09/08/2024 CBC MCH 31.6 pg 27.0-3 2.0 Not Available [facility] [address] [facility] [address] [facility] [address], [place], [address], 09/08/2024 14:21:37 09/08/19 25 09/08/2024 CBC MCHC 34.3 g/dL 32.0-3 6.0 Not Available [facility] [address] [facility] [address] [facility], [place], [address], 09/08/2024 14:21:37 09/08/19 25 09/08/2024 CBC RDW 16.1 % 11.5-1 4.5 high Not Available [facility] [address] [facility] [address], [place], [address], 09/08/2024 14:21:37 09/08/19 25 09/08/2024 CBC plt 179.5 x10 150.0- 451.0 Not Available [facility] [address] [facility] [address], [place], [address], 09/08/2024 14:21:37 09/08/19 25 09/08/2024 CBC lymphocytes % 16.1 % 20.0-5 0.0 low Not Available [facility] [address] [facility] [address], [place], [address], 09/08/2024 14:21:37 09/08/19 25 09/08/2024 CBC granulcytes % 75.2 % 30.0-7 0.0 high Not Available [facility] [address] [facility] [address], [place], [address], 09/08/2024 14:21:37 09/08/19 25 09/08/2024 CBC monocytes % 7.1 % 2.0-16 .0 Not Available [facility] [address] [facility] [address], [place], [address], 09/08/2024 14:21:37 09/08/19 25 09/08/2024 CBC granulcytes# 8.6 x10 Not Gloria ilable [facility] [address] [address], [place], [address], 09/08/2024 14:21:37 09/08/19 25 09/08/2024 CBC lymphocytes # 1.9 x10 Not Available [facility] [address] [address], [place], [address], 09/08/2024 14:21:37 09/08/19 25 09/08/2024 CBC monocytes # 0.8 x10 Not Avai [facility]ois [facility] [address] [facility] [address], [place], [address], 09/08/2024 14:21:37 09/08/19 25 09/08/2024 CMP (MALE ) glucose 103.0 mg/dL 60.0-9 9.0 high Not Available [facility] [address] [address], [place], [address], 09/08/2024 14:39:46 09/08/19 25 09/08/2024 CMP (MALE ) BUN (blood urea nitrogen) 37.0 mg/dL 10.0-2 6.0 high Not Available [facility] [address] [address], [place], [address], 09/08/2024 14:39:46 09/08/19 25 09/08/2024 CMP (MALE ) creatinine (serum) 2.4 mg/dL 0.4-1. 5 high Not Available [facility] [address] [address], [place], [address], 09/08/2024 14:39:46 09/08/19 25 09/08/2024 CMP (MALE ) BUN/creatini ne ratio 15.42 ratio Not Available [facility] [address] [address], [place], [address], 09/08/2024 14:39:46 09/08/19 25 09/08/2024 CMP (MALE ) eGFR calculated 28.0 Not Available [facility] [address] [address], [place], [address], 09/08/2024 14:39:46 09/08/19 25 09/08/2024 CMP (MALE ) total protein 7.6 g/dL 6.0-8. 5 Not Available [facility] [address] [facility] [address], [place], [address], 09/08/2024 14:39:46 09/08/19 25 09/08/2024 CMP (MALE ) total bilirubin 0.9 mg/dL 0.2-1. 3 Not Available [facility] [address] [facility] [address], [place], [address], 09/08/2024 14:39:46 09/08/19 25 09/08/2024 CMP (MALE ) albumin 4.4 g/dL 3.5-5. 5 Not Available [facility] [address] [facility] [address], [place], [address], 09/08/2024 14:39:46 09/08/19 25 09/08/2024 CMP (MALE ) globulin 3.2 calc Not Available [facility] [address] [address], [place], [address], 09/08/2024 14:39:46 09/08/19 25 09/08/2024 CMP (MALE ) AST (SGOT) 31.0 U/L 0.0-46 .0 Not Available [facility] [address] [address], [place], [address], 09/08/2024 14:39:46 09/08/19 25 09/08/2024 CMP (MALE ) altv (SGPT) 25.0 U/L 13.0-6 9.0 normal Not Available [facility] [address] [address], [place], [address], 09/08/2024 14:39:46 09/08/19 25 09/08/2024 CMP (MALE ) A/G ratio 1.4 ratio Not Available [facility] [address] [address], [place], [address], 09/08/2024 14:39:46 09/08/19 25 09/08/2024 CMP (MALE ) ALP phos 70.0 U/L 30.0-1 40.0 normal Not Available [facility] [address] [facility] [address], [place], [address], 09/08/2024 14:39:46 09/08/19 25 09/08/2024 CMP (MALE ) calcium 9.1 mg/dL 8.4-10 .5 Not Available [place] [facility] [address] [facility] [address], [place], [address], 09/08/2024 14:39:46 09/08/19 25 09/08/2024 CMP (MALE ) sodium 138.0 mmol/ L 136.0- 145.0 Not Available [facility] [address] [facility] [address], [place], [address], 09/08/2024 14:39:46 09/08/19 25 09/08/2024 CMP (MALE ) potassium 4.3 mmol/ L 3.5-5. 1 Not Available [facility] [address] [facility] [address], [place], [address], 09/08/2024 14:39:46 09/08/19 25 09/08/2024 CMP (MALE ) chloride 104.0 mmol/ L 98.0-1 10.0 normal Not Available [facility] [address] [facility] [address], [place], [address], 09/08/2024 14:39:46 09/08/19 25 09/08/2024 CMP (MALE ) C02 26.0 mmol/ L 22.0-3 1.0 Not Available [facility] [address] [facility] [address], [place], [address], 09/08/2024 14:39:46 09/08/19 25 09/08/2024 CMP (MALE ) anion gap 8.0 calc Not Available [facility] [address] [facility] [address], [place], [address], 09/08/2024 14:39:46 09/08/19 25 09/08/2024 CMP (MALE ) osmolality 293.5 calc Not Available [facility] [address] [facility], [place], [address], 09/08/2024 14:39:46 09/08/19 25 09/08/2024 LIPID PROFI LE (MALE ) cholesterol 180.0 mg/dL 0.0-20 0.0 Not Available [facility] [address] [facility], [place], [address], 09/08/2024 14:39:48 09/08/19 25 09/08/2024 LIPID PROFI LE (MALE ) trig 184.0 mg/dL 0.0-15 0.0 high Not Available [facility] [address] [facility], [place], [address], 09/08/2024 14:39:48 09/08/19 25 09/08/2024 LIPID PROFI LE (MALE ) HDL - direct 61.0 mg/dL >40.0 Not Available [facility] [address] [facility] [address], [place], [address], 09/08/2024 14:39:48 09/08/19 25 09/08/2024 LIPID PROFI LE (MALE ) VLDL - direct 36.8 mg/dL Not Available [facility] [address] [facility] [address], [place], [address], 09/08/2024 14:39:48 09/08/19 25 09/08/2024 LIPID PROFI LE (MALE ) LDL - direct 82.2 mg/dL 0.0-13 0.0 Not Available [facility] [address] [facility] [address], [place], [address], 09/08/2024 14:39:48 09/08/1909/08/2024 TSH TSH 2.23 uIU/m L 0.49-3 .82 Not Available [facility] [address] [facility] [address], [place], [address], 09/08/2024 16:02:25 Result Notes None recorded. Problems Name Problem SNOMED Code Status Onset Date Resolution Date Notes Provider Name and Address Organization Details Recorded Time Heart block 908933443 Active 2022 Brayan mccracken [facility] 5 12:06:53 Myocardial infarction 53342935 Active 2022 Brayan mccracken [facility] 5 12:07:20 Hypothyroid ism 89415439 Active 2022 Maia mccracken [facility] 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 4 16:11:29 Chronic kidney disease stage 4 524938533 Active 2022 Maia mccracken [facility] 4 16:11:29 Essential hypertensio n 88096177 Active 2022 Maia mccracken [facility] 4 16:11:29 Chest pain 17389597 Active 2022 Maia mccracken [facility] 4 16:11:29 Coronary atheroscler osis 498338873 Active 2023 Maia mccracken [facility] 4 16:11:29 Congestive heart failure 95507075 Active 2023 Maiajorge Flynntimothy mccracken, [facility] 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 4 16:11:29 Hypertensiv e heart disease with congestive heart failure 6797206 Active 2023 Maia Diana mccracken, [facility] 4 16:11:29 Nicotine dependence 64954484 Active 2023 Maia mccracken, [facility] 4 16:11:29 Chronic obstructive pulmonary disease 17118915 Active 2023 Maia mccracken, [facility] 4 16:11:29 Right side sciatica [id number] 01 Active 2023 Aurora Arreaga [address], [address], [facility] 4 17:41:58 Dehydration 64566961 Active 2023 Aurora Arreaga [address], [address], [facility] 4 11:51:24 Hyperlipide toñito 35123958 Active 2015 Aurora Arreaga [address], [address], [facility] 4 17:31:19 Pneumonia 859248318 Active 2024 Aurora Arreaga [address], [address], [facility] 10:38:41 Notes:Some problems listed i n Documents: #[id number], #[id number] could not be added to this patient's chart. Please review these documents and add these problems to the patient's chart manually as needed. Problem Notes None recorded. Procedures Surgical History Date Name Laterality Status Provider Name and Address Organization Details Recorded Time 01/29/20 23 jr cryo warts completed Aurora Arreaga DO [address] [place] [address], [id number], [facility], Jerry 01/28/2023 09:54:06 implantation of internal cardiac defibrillator completed Miller Orozco [facility] ServicesJerry 09/07/2024 12:31:53 Imaging Results None recorded. Procedure [...] e two times daily 03/04 completed DM/sd; 42918; Recorded 09/09/19 2:45PM by Arleth Blancas (Qasim kirk through Aurora Arreaga DO), Annotati on/Lynne dum; Refill Quantity : 180; Tablet; Not Available Not Available Not Available carvedilo l two times daily 03/04 completed 01380; Recorded 07/31/19 12:15PM by Brayan Butler (Qasim kirk through Aurora Arreaga DO), Office Visit; Not Available Not Available Not Available Vitamin D3 active Not Available Not Available Not Available THSC Levothyro xine Sodium every morning 03/04 completed DM/ky; Recorded 09/05/19 8:33AM by Aurora Arreaga DO, Office Visit; Refill Quantity : 90; [...] by Pulse oximetry Heart rate Respiratory rate Body temperature Systolic blood pressure Diastolic blood pressure Provider Name and Address Organization Details Last Updated DateTime 5 182.88 cm 27.3 kg/m2 93200.8 7 g 98 % 98 % 72 /min 18 /min 99 [degF] 128 mm[Hg] 80 mm[Hg] Maia Ortiz [facility] 5 11:50:27 Date Recorded Body height Body mass index (BMI) Body weight Oxygen saturation Oxygen saturation in Arterial blood by Pulse oximetry Heart rate Respiratory rate Systolic blood pressure Diastolic blood pressure Provider Name and Address Organization Details Last Updated DateTime 5 182.88 cm 26.6 kg/m2 97989.1 g 98 % 98 % 73 /min 18 /min 120 mm[Hg] 60 mm[Hg] Miller Orozco [facility] 5 12:34:44 Date Recorded Body height Body mass index (BMI) Body weight Oxygen saturation Oxygen saturation in Arterial blood by Pulse oximetry Heart rate Respiratory rate Systolic blood pressure Diastolic blood pressure Provider Name and Address Organization Details Last Updated DateTime 5 182.88 cm 27.5 kg/m2 60175.9 5 g 99 % 99 % 88 /min 18 /min 118 mm[Hg] 56 mm[Hg] Maia Ortiz [facility] 5 09:47:32 Social History Question Answer Notes LastModified by Organizat ion Details LastModified Time Tobacco Smoking Status Former Smoker Maia [email or web address] [facility] 09/27/2024 09:41:18 What Is Your Level Of Alcohol Consumption? Occasional [email or web address] Information not available 03/04/2023 Are You Blind Or Do You Have Difficulty Seeing? No [email or web address] Information not available 03/07/2023 What Is Your Level Of Caffeine Consumption? Moderate [email or web address] Information not available 09/27/2024 Are You Currently Employed? No Information not available 03/07/2023 Are You Deaf Or Do You Have Serious Difficulty Hearing? Yes [email or web address] Information not available 03/07/2023 Do You Or Have You Ever Used E-cigarettes Or Vape? Never Used Electronic Cigarettes [email or web address] Information not available 09/27/2024 When Did You Quit Smoking? 1-5yearssincel astcidelfinoette [email or web address] Information not available 09/27/2024 What Was The Date Of Your Most Recent Tobacco Screening? 09/27/2024 [email or web address] Information not available 09/27/2024 Do You Or Have You Ever Used Any Nicotine-free Cigarettes, Vape, Or Chewing Tobacco? No [email or web address] Information not available 09/27/2024 Do You Or Have You Ever Used Smokeless Tobacco? Former Smokeless Tobacco User [email or web address] Information not available 09/27/2024 Do You Use Any Illicit Or Recreational Drugs? No [email or web address] Information not available 03/04/2023 Has Tobacco Cessation Counseling Been Provided? No Information not available 03/07/2023 Do You Or Have You Ever Used Any Other Forms Of Tobacco Or Nicotine? Yes Information not available 09/27/2024 How Many Years Have You Used Smokeless Tobacco? 2 [email or web address] Information not available 09/27/2024 Sex: Unknown Functional Status Question Answer Note LastModified by Organizat ion Details LastModified Time Do you have difficulty walking or climbing stairs? No [email or web address] Information not available 03/07/2023 Do you have transportation difficulties? No [email or web address] Information not available 03/07/2023 Are you able to walk? YESWOREST [email or web address] Information not available 03/07/2023 Do you have difficulty doing errands alone? No [email or web address] Information not available 03/07/2023 Are you able to care for yourself? Yes [email or web address] Information not available 03/07/2023 Do you have difficulty dressing or bathing? No [email or web address] Information not available 03/07/2023 Mental Status Question Answer Note LastModified by Organization D etails LastModified Time Do you have difficulty concentrating, remembering or making decisions? No Information no t available 03/07/2023 Family History Relationship Description Onset Age of this Age Resolved Age Notes LastModified by Organization Details LastModified Time Father Primary malignant neoplasm of pharynx [email or web address] Not available 2024 09:48:04 Sister Malignant neoplasm of appendix [email or web address] Not available 2024 09:48:27 Brother Heart disease [email or web address] Not available 2024 09:48:36 Notes:Brother: Heart Disease Father: Cancer Sister: Cancer Throat Cancer- Father Medical History No medical history recorded. Immunizations Vaccine Type Date Status Note Provider Nam e and Address Organization Details Recorded Time Influenza, high-dose, quadrivalent, PF 1 completed Not Available [facility] 06/03/2023 10:25:15 Influenza, high-dose, quadrivalent, PF 2 completed Not Available [facility] 06/03/2023 10:25:16 COVID-19, mRNA, LNP-S, PF, 30 mcg/0.3 mL dose 1 completed Not Available [facility] 06/03/2023 10:25:16 COVID-19, mRNA, LNP-S, PF, 30 mcg/0.3 mL dose 1 completed Not Available [facility] 06/03/2023 10:25:16 COVID-19, mRNA, LNP-S, PF, 30 mcg/0.3 mL dose 1 completed Not Available [facility] 06/03/2023 10:25:16 COVID-19, mRNA, LNP-S, bivalent, PF, 30 mcg/0.3 mL dose 2 completed Not Available [facility] 06/03/2023 10:25:16 pneumococcal polysaccharide PPV23 9 completed Not Available [facility] 06/03/2023 10:25:16 Pneumococcal conjugate PCV 13 8 completed Not Available [facility] 06/03/2023 10:25:16 Influenza, high-dose, trivalent, PF 8 completed Not Available [facility] 06/03/2023 10:25:16 Influenza, high-dose, trivalent, PF 9 completed Not Available [facility] 06/03/2023 10:25:16 Influenza, split virus, quadrivalent, PF 8 completed Not Available [facility] 06/03/2023 10:25:16 Influenza, split virus, quadrivalent, PF 3 completed Aurora Arreaga DO [address] [place] [address], [phone], [facility] 05/12/2023 09:46:48 Pneumococcal conjugate PCV20, polysaccharide SBO560 conjugate, adjuvant, PF 3 completed Aurora Arreaga DO [address] [place] [address], [phone], [facility] 05/12/2023 09:46:48 Influenza, split virus, trivalent, PF 4 completed Aurora Arreaga DO [address] [place] [address], [phone], [facility] 04/09/2024 17:46:06 Past Encounters Encounter ID Performer Location Encounter Start Date Encounter Closed Date Diagnosis/Indication Diagnosis SNOMED-CT Code Diagnosis ICD10 Code Diagnosis Note [id number] Fredi Rivas DO [facility] ([facility]) [address] [place] [phone] 5 10/14/2022 09:00:06 10/14/2022 10:52:02 Dysuria 41515576 R30.0 Right flank pain 1293951 09 R10.9 [id number] Aurora Arreaga DO [facility] ([facility]) [address] [place] [phone] 5 10/17/2022 10:47:34 10/25/2022 16:43:48 Right flank pain 943541102 R10.9 UA and cx r/o UTI, kidney infection. signs and symptoms c/w rib pain. pt to f/u with chiropract or. recommend no popping or cracking due to CV surgery. Rib pain 680255909 R07.8 1 right lower. rest, nsaids, chiropract or. .f/u if not improving [id number] Aurora Arreaga DO [facility] ([facility]) [address] [place] [id number] 5 12/18/2022 08:29:02 12/18/2022 13:16:15 Hypothyroidism 94422405 E03.9 TSH of 6, will increase levothyroi d. from 75mcg daily to 100. repeat labs in 3 [facility] with appt after. Essential hypertension 37592916 I10 stable. 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 monitor weight and SOB Chronic ki dney disease stage 4 638222611 N18.4 function worsening: Cr. 2.7 with GFR of 24. pt has appt next mt with Johnathon Marie. pt to stop allopurino l if he is taking it. [id number] Aurora Arreaga DO [facility] ([facility]) [address] [place] [id number] 5 01/28/2023 09:09:50 01/28/2023 12:48:23 Chronic kidney disease stage 4 726905846 N18.4 remians poor/stage 4. : Cr. 2.5 with GFR of 24. pt had appt Johnatohn Marie. I reviewed her note from 2 wks ago. will get labs he had done yesterday. plan on repeat labs in 1 mt. will follow alogn Essential hypertension 81360614 I10 stable. continue coreg Hypothyroidism 72889034 E03.9 will plan on repeat thyorid labs at next appt. Ischemic c ongestive cardiomyopathy 715705754 I25.5 continue lasix 40mg bid and spironolac tone daily. monitor weight and SOB. will keep an eye on potassium with labs in 1 in Hand wart 843523687 B07. 8 After detailed discussion on diagnosis and treatment options, pt expressed verbal desire to proceed today with procedure and expressed verbal understand ing of options, risks, procedure, and expectatio ns.cryothe rapy done today.Pt tolerated the procedure well. Aftercare instructio ns with expectatio ns and precuasion s were discussed. [id number] Aurora Arreaga DO [facility] ([facility]) [address] [place] [address] 5 03/04/2023 08:01:42 03/04/2023 10:36:59 Chronic kidney disease stage 4 392121358 N18.4 remians poor/stage 4. : Cr. holding steady at. 2.5 with GFR of 26 which is slighly improved. continue with Dr. Stinson Nephro. f/u with me in 6 wks with labs. Essential hypertension 22328262 I10 stable. continue coreg Ischemic c ongestive cardiomyopathy 818172494 I25.5 continue lasix 20mg bid and spironolac tone daily. monitor weight and SOB. will keep an eye on potassium with labs in 1 mt.f/u with me in 6 wks with labs. [id number] KENAN HERNANDEZ PA-C [facility] ([facility]) [address] [place] [address] 5 03/07/2023 09:13:53 03/07/2023 10:06:07 Chronic kidney disease stage 4 512477720 N18.4 Ischemic c ongestive cardiomyopathy 472688202 I25.5 EF 30% Dr. Quiroga Hypothyroidism 36012035 E03.9 Heart block 852338162 I4 5.9 Coronary arteriosclerosis 91085750 I25.10 [place] in 1995 Adult heal th examination 724584094 Z00.00 Due for Tdap and shingles, and yrly flu when available. [id number] Aurora Arreaga DO [facility] ([facility]) [address] [place] [address] 5 04/15/2023 08:13:26 04/15/2023 18:04:16 Chronic kidney disease stage 4 449749604 N18.4 remians poor/stage 4. : Cr. holding steady at. 2.5 with GFR of 26 which is slighly improved. continue with Dr. Stinson Nephro. f/u with me in 6 wks with labs. Essential hypertension 90978207 I10 stable. continue coreg Chest pain 71516482 R07. 9 stable. Ischemic c ongestive cardiomyopathy 031920834 I25.5 continue lasix 20mg bid and spironolac tone daily. monitor weight and SOB. will keep an eye on potassium with labs in 1 mt.f/u with me in 6 wks with labs. Myocardial infarction 22 971994 I21.9 [id number] Aurora Arreaga DO [facility] ([facility]) [address] [place] [address] [id number] 5 05/08/2023 11:32:05 05/29/2023 04:14:31 Active or passive immunization 384853583 Z23 [id number] CARMENZA CLEMENTS [facility] ([facility]) [address] [place] [address] [id number] 5 05/29/2023 08:02:40 05/30/2023 16:30:47 Essential hypertension 52993804 I10 stable. continue coreg Hypothyroidism 27367801 E03.9 will plan on repeat thyorid labs at next appt. [id number] Aurora Arreaga DO [facility] ([facility]) [address] [place] [phone] 5 06/10/2023 08:24:18 06/10/2023 10:59:44 Essential hypertension 27653924 I10 stable. continue coreg Chronic ki dney disease stage 4 586897228 N18.4 remains poor/stage 4. : Cr. holding steady at. 2.5 with GFR of 26 which is slightly improved. continue with Dr. Stinson Nephro.- recent Nephro visit, stable, f/u 4 months with them. Hypothyroidism 24967940 E03.9 will plan on repeat thyorid labs at next appt. Ischemic c ongestive cardiomyopathy 105843032 I25.5 continue lasix 20mg bid and spironolac tone daily. monitor weight and SOB. will keep an eye on potassium with labs in 1 mt.f/u with me in 6 wks with labs. [id number] Aurora Arreaga DO [facility] ([facility]) [address] [place] [id number] 5 09/10/2023 08:08:41 09/10/2023 09:00:53 Chronic kidney disease stage 4 093783603 N18.4 N25.81 09/10/23- Cr. decreased from 2.6 to 2.4 with GFR up from 25 to 28.5. GFR improved from 26 to 28.weight is holding steady. HE is to continue with Dr. Stinson Nephro.- recent Nephro visit, stable, f/u 4 months with them. remains poor/stage 4. : Cr. holding steady at. 2.5 with GFR of 26 which is slightly improved. Essential hypertension 35720248 I10 stable. continue coreg Ischemic c ongestive cardiomyopathy 896762859 I25.5 I42.0 continue lasix 20mg bid and spironolac tone daily. monitor weight and SOB. will keep an eye on potassium with labs in 1 mt.f/u with me in 6 wks with labs. Continue with Dr. Quiroga. Myocardial infarction 22 847541 I21.9 hx of. continue with cardiology . continue atorvastat in, carvedilol , prn nitro. counseled Chest pain 52364338 R07. 9 I20.9 stable. intermitte nt. continue prn nitro Hypothyroidism 71806511 E03.9 Currently stable, continue levothyrox ine at current dose. will repeat labs Coronary atherosclerosis 765946349 I25.119 continue care with cardiology Congestive heart failure 78487920 I50.9 E26.[address] Quiroga, cardiology . Continue lasix 20mg bid and spironolac tone daily. monitor weight and SOB.cardio logy Hypertensi ve heart disease with congestive heart failure 7475446 I11.[address] Quiroga, cardiology . Continue lasix 20mg bid and spironolac tone daily. monitor weight and SOB.cardio logy Bilateral atherosclerosis of arteries of lower limbs 8401837014 1777307 I70.203 continue care with cardiology . continue plavix, statin, bp control as above. Nicotine dependence 5629 4008 F17.200 Z72.0 counseled on smoking cessation. Chronic ob structive pulmonary disease 61045543 J44.9 mild, chronic, continue albuterol [id number] CARMENZA CLEMENTS [facility] ([facility]) [address] [place] [address] [id number] 5 12/29/2023 08:04:06 12/29/2023 08:20:46 Chronic kidney disease stage 4 500758887 N18.4 N25.81 09/10/23- Cr. decreased from 2.6 to 2.4 with GFR up from 25 to 28.5. GFR improved from 26 to 28.weight is holding steady. HE is to continue with Johnathon Marie.- recent Nephro visit, stable, f/u 4 months with them. remains poor/stage 4. : Cr. holding steady at. 2.5 with GFR of 26 which is slightly improved. Hypothyroidism 76377869 E03.9 Currently stable, continue levothyrox ine at current dose. will repeat labs [id number] Aurora Arreaga DO [facility] ([facility]) [address] [place] [address] [id number] 5 01/06/2024 15:53:41 01/06/2024 16:58:03 Chronic kidney disease stage 4 461589033 N18.4 N25.81 stable. labs relatively unchaged. no change in meds. keep f/u with nephrology .09/10/23- Cr. decreased from 2.6 to 2.4 with GFR up from 25 to 28.5. GFR improved from 26 to 28.weight is holding steady. HE is to continue with Johnathon Marie.- recent Nephro visit, stable, f/u 4 months with them. remains poor/stage 4. : Cr. holding steady at. 2.5 with GFR of 26 which is slightly improved. Chronic ob structive pulmonary disease 50138430 J44.9 mild, chronic, continue albuterol Congestive heart failure 50446436 I50.9 E26.[address] Quiroga, cardiology . Continue lasix 20mg bid and spironolac tone daily. monitor weight and SOB.cardio logy Hypertensi ve heart disease with congestive heart failure 0725836 I11.[address] Quiroga, cardiology . Continue lasix 20mg bid and spironolac tone daily. monitor weight and SOB.cardio logy Right side sciatica 3202 129580 27111 M54.31 rest. tylenol. counseled and illustrate d stretches and exercise for home. Return to office with no improvemen t or any problems. Go to ER with severe worsening or severe problems. [id number] Aurora Arreaga DO [facility] ([facility]) [address] [place] [address] [id number] 5 01/29/2024 10:53:53 01/29/2024 12:39:42 Dehydration 21800187 E86.0 Symptoms most consistent with acute dehydratio n. We will hold his furosemide this afternoon and both doses tomorrow. Start back on 20 mg once daily starting the day after tomorrow. Patient is to monitor his weight every day and monitor leg swelling. Follow-up with me in 2 to 3 weeks. Sooner with problems.R ecommend about 2 L of fluids daily. [id number] Aurora DO [facility]) [address] [place] [address] [phone] 5 02/17/2024 10:53:28 02/17/2024 12:51:54 Dehydration 95233726 E86.0 Resolved after decreasing furosemide . We will continue the lower dose of furosemide . 20 mg every morning and then a second 20 mg pill every other day. Patient is to monitor weight and swelling very closely every day. Continue care with Dr. Rojas, cardiology .. Follow-up with me in 2 to 3 weeks. Sooner with problems.R ecommend about 2 L of fluids daily. Congestive heart failure 79344558 I50.9 E26.[address] Quiroga, cardiology . Continue lasix 20mg every morning and a second dose every other dayand spironolac tone daily. monitor weight and SOB.cardio logy [id number] Aurora Arreaga DO [facility] ([facility]) [address] [place] [address] [id number] 5 04/07/2024 09:24:12 04/07/2024 17:11:49 Chronic kidney disease stage 4 562364540 N18.4 N25.81 stable. labs relatively unchaged. no change in meds. keep f/u with nephrology .04/07/24: lab today, continue following with Nephrology .09/10/23- Cr. decreased from 2.6 to 2.4 with GFR up from 25 to 28.5. GFR improved from 26 to 28.weight is holding steady. HE is to continue with Johnathon Marie.- recent Nephro visit, stable, f/u 4 months with them. remains poor/stage 4. : Cr. holding steady at. 2.5 with GFR of 26 which is slightly improved. Chronic ob structive pulmonary disease 90583718 J44.9 mild, chronic, continue albuterol Congestive heart failure 89026761 I50.9 E26.[address] Quiroga, cardiology . Continue lasix 20mg bid and spironolac tone daily. 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 Quiroga, cardiology . Continue lasix 20mg bid and spironolac tone daily. monitor weight and SOB.cardio logy Right side sciatica 3202 876425 41421 M54.31 rest. tylenol. counseled and illustrate d stretches and exercise for home. Return to office with no improvemen t or any problems. Go to ER with severe worsening or severe problems. Essential hypertension 25570185 I10 stable. continue coreg Administra tion of influenza vaccine 05721942 Z23 Update Fluvax today. [id number] Aurora Arreaga DO [facility] ([facility]) [address] [place] [address] [id number] 5 07/12/2024 10:10:48 07/12/2024 17:18:00 Chronic kidney disease stage 4 190232286 N18.4 N25.81 stable. labs relatively unchaged. no [...] slightly improved. Chronic ob structive pulmonary disease 62073083 J44.9 mild, chronic, continue albuterol Congestive heart failure 14587298 I50.9 E26.[address] Quiroga, cardiology . Continue lasix 20mg bid and spironolac tone daily. monitor weight and SOB.cardio logy Hypertensi ve heart disease with congestive heart failure 3910307 I11.[address] Quiroga, cardiology . Continue lasix 20mg bid and spironolac tone daily. monitor weight and SOB.cardio logy Right side sciatica 3202 366441 50164 M54.31 rest. tylenol. counseled and illustrate d stretches and exercise for home. Return to office with no improvemen t or any problems. Go to ER with severe worsening or severe problems. Essential hypertension 72752098 I10 stable. continue coreg [id number] CARMENZA CLEMENTS [facility] ([facility]) [address] [place] [address] [id number] 5 07/16/2024 09:20:11 07/17/2024 22:42:28 Chronic kidney disease stage 4 567356668 N18.4 N25.81 stable. labs relatively unchaged. no change in meds. keep f/u with nephrology .04/07/24: lab today, continue following with Nephrology .09/10/23- Cr. decreased from 2.6 to 2.4 with GFR up from 25 to 28.5. GFR improved from 26 to 28.weight is holding steady. HE is to continue with Dr. Stinson, Nephro.- recent Nephro visit, stable, f/u 4 months with them. remains poor/stage 4. : Cr. holding steady at. 2.5 with GFR of 26 which is slightly improved. Essential hypertension 11475137 I10 stable. continue coreg Hypothyroidism 13383595 E03.9 Currently stable, continue levothyrox ine at current dose. will repeat labs [id number] Aurora Arreaga DO [facility] ([facility]) [address] [place] [address] [id number] 5 08/24/2024 11:22:41 08/24/2024 15:55:19 Cough 11063431 R05.9 Covid/ Flu negative today. Counseled abx and steroid for Bronchitis . Chronic ki dney disease stage 4 864861303 N18.4 N25.81 stable. labs relatively unchaged. no [...] slightly improved. Chronic ob structive pulmonary disease 08724116 J44.9 mild, chronic, continue albuterol Congestive heart failure 67104041 I50.9 E26.[address] Jara, cardiology . Continue lasix 20mg bid and spironolac tone daily. monitor weight and SOB.cardio logy Coronary atherosclerosis 832766376 I25.119 continue care with cardiology Essential hypertension 77545520 I10 stable. continue coreg Hypertensi ve heart disease with congestive heart failure 6293224 I11.[address] Jara, cardiology . Continue lasix 20mg bid and spironolac tone daily. monitor weight and SOB.cardio logy Hypothyroidism 47779591 E03.9 Currently stable, continue levothyrox ine at current dose. Ischemic c ongestive cardiomyopathy 622114382 I25.5 I42.0 I42.9 continue lasix 20mg bid and spironolac tone daily. Continue with Dr. Jara. Nicotine dependence 5629 4008 F17.200 Z72.0 I counseled patient on smoking risks, hazards, complicati ons, and associated illnesses. We discussed smoking cessation options. The patient will work on cutting back but is not ready to quit. We spent 4 minutes discussing this. All questions were addressed. Chest pain 82770183 R07. 9 I20.9 stable. intermitte nt. continue prn nitro [id number] Aurora Arreaga DO [facility] ([facility]) [address] [place] [address] [id number] 5 09/07/2024 11:48:04 09/22/2024 14:31:14 Pneumonia 075573601 J18.9 Improving. finish abx. cotinue breathing execises. monitor for return of smptoms or CHF flair. [id number] CARMENZA CLEMENTS [facility] ([facility]) [address] [place] [address], [place] [address] 09/08/2024 13:56:15 09/09/2024 13:46:31 Essential hypertension [id number] I10 stable. continue coreg [id number] Aurora Arreaga DO [employer] [facility] ([facility]) [address] [place] [address] 09/27/2024 09:34:22 09/27/2024 13:36:51 Essential hypertension 77908907 I10 stable. continue coreg Chronic ki dney disease stage 4 [id number] N18.4 N25.81 stable. labs relatively unchaged. no change in meds. keep f/u with nephrology .04/07/24: lab today, continue following with Nephrology .09/10/23- Cr. decreased from 2.6 to 2.4 with GFR up from 25 to 28.5. GFR improved from 26 to 28.weight is holding steady. HE is to continue with Dr. Stinson, Nephro.- recent Nephro visit, stable, f/u 4 months with them. remains poor/stage 4. : Cr. holding steady at. 2.5 with GFR of 26 which is slightly improved. Chronic ob structive pulmonary disease 42390128 J44.9 stable, mild, chronic, continue albuterol Congestive heart failure 17437776 I50.[address]26[address] Quiroga, cardiology . Continue lasix 20mg bid and spironolac tone daily. monitor weight and SOB.cardio logy Hypertensi ve heart disease with congestive heart failure 1414618 I11.[address] Quiroga, cardiology . Continue lasix 20mg bid and spironolac tone daily. monitor weight and SOB.cardio logy Health Concerns Section Related Observation LastModified by Organization Detai ls LastModified Time None Recorded Concern Status LastModified by Organization Details LastModified Time None Recorded Advance Directives Directive None Recorded Payers Encounter Date Sequence Insurance Name Policy Number Policy Matta Covered Member ID Matta Member ID Guarantor Name 07/16/2024 1 [place] - [place]) [id number] Juarez Delgado [id number] Juarez Delgado 08/24/2024 1 [place] - [place]) [id number] Juarez Delgado [id number] Juarez Delgado 09/07/2024 1 [place] - [place]PO) [id number] Juarez Delgado [id number] Juarez Delgado 09/08/2024 1 [place] - [place]PO) [id number] Juarez Delgado [id number] 81 Juarez Delgado 09/27/2024 1 [place] - [place]PO) [id number] Juarez Delgado [id number] Juarez Delgado Notes Date Note Type Note Provider Name and Address Organization Details Recorded Time 08/24/2024 text/html Pt presents for acute illness, cough/congestion He reports his cough and chest congestion started 2 days ago.Cough is dry mostly, very seldom does he cough anything upHe has nasal congestionHe was wheezing this am, used his inhaler, couldn't tell it made much of a difference.Denies any other sx He had questions re his carvedilol, Heart care had decreased the dosage and only gave him a 2 weeks supply and he has tried to call them again re this last weekOur office has called and left voice message today re this, he is needing med refilled He is also to start med Entresto but has not got med yet Aurora Arreaga, DO [address] [place] [address], [phone], [facility], Jerry 08/24/2024 14:21:21 09/07/2024 text/html Pt presents for hospital f/u was admitted on 08/26/24 and d/c'd home on 08/27/24 Patient was in need of oxygen and admitted to the hospital. He had leukocytosis lactic acidosis consistent with sepsis. BNP elevated but in the setting of heart failure and sepsis not really interpretable.Patien t was RSV positive but also had right [...] does have some nasal congestion treated with [place] nasal spray and lung congestion treated with Decadron plus guaifenesin. Patient has albuterol inhaler at home,Prescriptions:N ewsodium bicarbonate 650 mg Qcfkyv095 mg PO BID Qty: 60 0RFDeep Sea Nasal 0.65 % Aerosol,Spray1 spray nasal PRN PRN (Reason: Dryness) Qty: 1 0RFguaifenesin 1,200 mg tablet extended release 12hr1,200 mg PO BID PRN (Reason: congestion) Qty: 20 0RFazithromycin 250 mg kzglbu030 mg PO DAILY Qty: 4 0RFcefdinir 300 mg hoiyidc181 mg PO BID 6 Days Qty: 12 0RFdexamethasone 4 mg tablet4 mg PO DAILY Qty: 4 0R Pt states that he is feeling better after his hospitalization, with no concerns.He is nearly finished with abx. Coughing, wheezing, RIZVI improving. He has lab ordered, prefers it be done here. Aurora Arreaga, DO [address] [place], [address], [facility], Jerry 09/22/2024 10:38:51 09/27/2024 text/html Pt presents for 3 mth recheck chronic illness CKD, CHF, ischemic cardiomyopathy Labs done on 09/08/24 TSH 2.23, glucose 103, BUN 37, Cr 2.4, WBC's 11.5cholesterol 180, trigs 184, Hdl 61, Ldl 82.2 States that he is feeling good has SOB on exertion but is normal for him . SOB stable. no worsening Fatigue or new CP.His weight is up alittle, but admits to eating more. no leg edema or orthopnea. Aurora Arreaga, DO [address] [place] [address], [phone], [facility]/27/[facility] 10:11:41
--- OUTSIDE RECORDS SUMMARY | 2024-09-30 04:21 | XMS_ITS | Encounter Summary ---
Author Organization [facility] Address [address] [place] [address] Care Team Providers Care Brake Reliner Name Role Phone Unavailable Primary Care Provider Unavailabl e Encounter Details Date Type Department Care Team (Latest Contact Info) Description 07/17/2001 Outpatient Historical [facility] Occupational Medicine-[facility] [place] [address] [place] [phone] Jamil Lynn MD NO ADDRESS ON FILE SPRAIN SACROILIAC NOS (Primary Dx) Social History Tobacco Use Types Packs/Day Years Used Date Smoking Tobacco: Never Assessed Sex and Gender Information Value Date Recorded Sex Assigned at Not on file Legal Sex Male 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
--- OUTSIDE RECORDS SUMMARY | 2024-09-30 04:21 | XMS_ITS | Encounter Summary ---
Author Organization [facility] Address [address] [place] [address] Care Team Providers Care Die Drawing Checker Name Role Phone Unavailable Primary Care Provider Unavailabl e Encounter Details Date Type Department Care Team (Late st Contact Info) Description 08/17/2006 Outpatient Historical [facility] [address] [place] [address] Trell Hanna MD [address] [address] Social History Tobacco Use Types Packs/Day Years Used Date Smoking Tobacco: Never Assessed Sex and Gender Information Value Date Recorded Sex Assigned at Not on file 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
--- OUTSIDE RECORDS SUMMARY | 2024-09-30 04:21 | XMS_ITS | Encounter Summary ---
Author Organization [facility] Address [address] [place] [address] Care Team Providers Care Child Attendant Name Role Phone Unavailable Primary Care Provider Unavailabl e Encounter Details Date Type Department Care Team (Latest Contact Info) Description 11/11/2006 Outpatient Historical [facility] General and Trauma Surgery-[address] [place] [address] Marlon Burks, Jatinder Meeks MD [address] [place] [address] [address] [place] [address] Late Effect of Rolon of Other Specified Sites (Primary Dx); Accident Caused by Other Hot Substance or Object Social History Tobacco Use Types Packs/Day Years Used Date Smoking Tobacco: Never Assessed Sex and Gender Information Value Date Recorded Sex Assigned at Not on file 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
--- OUTSIDE RECORDS SUMMARY | 2024-09-30 04:21 | XMS_ITS | Continuity of Care Document ---
Author Organization [facility] Jerry Marley, [facility] ([facility]) Address [address] [place] [address] Care Team Providers Care Wire Twister Name Role Phone AURORA CUNNINGHAM Primary Care Provider Unavailabl e Assessment Encounter Date Assessment Date Assessment LastModified by Organization Details LastModified Time 09/27/2024 09/27/2024 I reviewed recent records from nephrology, and added to chart. We discussed with the patient. [email or web address] Not available 09/27/2024 10:10:44 Plan of Treatment Reminders Order Date Submit Date Provider Last Modified By Organization Details Last Modified Time Details Appointments RECHECK 10 2024 09:00A M Aurora Cunningham, DO Not available Not available Not available Lab None recorded. Referral None recorded. Procedures None recorded. Surgeries None recorded. Imaging None recorded. Medication Orders carvedilo l 3.125 mg tablet 2024 025 [email or web address] 7 [facility], [address], [place], [address], 09/27/2024 10:11:09 Patient TargetsNo targets recorded. Patient InstructionsNo instructions recorded. Reason for Referral None Reported. Problems Name Problem SNOMED Code Status Onset Date Resolution Date Notes Provider Name and Address Organization Details Recorded Time Heart block 812245469 Active 2022 B[facility]ccracken [facility] 12:06:53 Myocardial infarction 80142210 Active 2022 B[facility] mccracken [facility] 12:07:20 Hypothyroid ism 70839171 Active 2022 Maia Ortiz null, [facility] 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 4 16:11:29 Chronic kidney disease stage 4 617420013 Active 2022 Maia Ortiz null, [facility] 4 16:11:29 Essential hypertensio n 11558197 Active 2022 Maia mccracken, [facility] 4 16:11:29 Chest pain 54927794 Active 2022 Maia Ortiz null, [facility] 4 16:11:29 Coronary atheroscler osis 403687031 Active 2023 Maia Ortiz null, [facility] 4 16:11:29 Congestive heart failure 26727608 Active 2023 Maia Ortiz null, [facility] 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 4 16:11:29 Hypertensiv e heart disease with congestive heart failure 9587649 Active 2023 Maia Ortiz null, [facility] 4 16:11:29 Nicotine dependence 54274262 Active 2023 Maia Ortiz null, [facility] 4 16:11:29 Chronic obstructive pulmonary disease 11695260 Active 2023 Maia Flynne null, [facility] 4 16:11:29 Right side sciatica 4098512501831 01 Active 2023 Aurora Cunningham DO [address] [place] [address], [address] [place] [address] 5, [facility] 4 17:41:58 Dehydration 80473018 Active 2023 Aurora Cunningham DO [address] [place] [address], [address] [place] [address] 5, [facility] 4 11:51:24 Hyperlipide toñito 76986505 Active 2015 Aurora Cunningham [address], [address] [place] [address] 5, [facility] 4 17:31:19 Pneumonia 617946026 Active 2024 Aurora Cunningham [address], [address] [place] [address] 5, [facility] 5 10:38:41 Notes:Some problems listed i n Documents: #[id number], #[id number] could not be added to this patient's chart. Please review these documents and add these problems to the patient's chart manually as needed. Problem Notes None recorded. Procedures Surgical History Date Name Laterality Status Provider Name and Address Organization Details Recorded Time 01/29/20 23 jr kayla warts completed Aurora Cunningham DO [address] [place] [address], [phone], [facility] 01/28/2023 09:54:06 implantation of internal cardiac defibrillator completed Miller Orozco [facility] 09/07/2024 12:31:53 Imaging Results None recorded. Procedure [...] e two times daily 03/04 completed DM/sd; 27162; Recorded 09/09/19 2:45PM by Arleth Blancas (Authori zed through Aurora Cunningham DO), Annotati on/Adden dum; Refill Quantity : 180; Tablet; Not Available Not Available Not Available carvedilo l two times daily 03/04 completed 13500; Recorded 07/31/19 12:15PM by Brayan Butler (Authori zed through Aurora Cunningham DO), Office Visit; Not [...] Updated DateTime 5 182.88 cm 27.5 kg/m2 79045.9 5 g 99 % 99 % 88 /min 18 /min 118 mm[Hg] 56 mm[Hg] Maia Ortiz [facility] 5 09:47:32 Social History Question Answer Notes LastModified by Organizat ion Details LastModified Time Tobacco Smoking Status Former Smoker Maia Diana [facility] 09/27/2024 09:41:18 What Is Your Level Of Alcohol Consumption? Occasional [email or web address] Information not available 03/04/2023 Are You Blind Or Do You Have Difficulty Seeing? No [email or web address] Information not available 03/07/2023 What Is Your Level Of Caffeine Consumption? Moderate [email or web address] Information not available 09/27/2024 Are You Currently Employed? No [email or web address] Information not available 03/07/2023 Are You Deaf Or Do You Have Serious Difficulty Hearing? Yes [email or web address] Information not available 03/07/2023 Do You Or Have You Ever Used E-cigarettes Or Vape? Never Used Electronic Cigarettes [email or web address] Information not available 09/27/2024 When Did You Quit Smoking? 1-5yearssincel [email or web address] Information not available 09/27/2024 What Was The Date Of Your Most Recent Tobacco Screening? 09/27/2024 Information not available 09/27/2024 Do You Or Have You Ever Used Any Nicotine-free Cigarettes, Vape, Or Chewing Tobacco? No Information not available 09/27/2024 Do You Or Have You Ever Used Smokeless Tobacco? Former Smokeless Tobacco User [email or web address] Information not available 09/27/2024 Do You Use Any Illicit Or Recreational Drugs? No [email or web address] Information not available 03/04/2023 Has Tobacco Cessation Counseling Been Provided? No Information not available 03/07/2023 Do You Or Have You Ever Used Any Other Forms Of Tobacco Or Nicotine? Yes [email or web address] Information not available 09/27/2024 How Many Years Have You Used Smokeless Tobacco? 2 [email or web address] Information not available 09/27/2024 Sex: Unknown Functional Status Question Answer Note LastModified by Organizat ion Details LastModified Time Do you have difficulty walking or climbing stairs? No [email or web address] Information not available 03/07/2023 Do you have transportation difficulties? No [email or web address] Information not available 03/07/2023 Are you able to walk? YESWOREST [email or web address] Information not available 03/07/2023 Do you have difficulty doing errands alone? No [email or web address] Information not available 03/07/2023 Are you able to care for yourself? Yes Information not available 03/07/2023 Do you have difficulty dressing or bathing? No [email or web address] Information not available 03/07/2023 Mental Status Question Answer Note LastModified by Organization D etails LastModified Time Do you have difficulty concentrating, remembering or making decisions? No Information no t available 03/07/2023 Family History Relationship Description Onset Age of this Age Resolved Age Notes LastModified by Organization Details LastModified Time Father Primary malignant neoplasm of pharynx [email or web address] Not available 2024 09:48:04 Sister Malignant neoplasm of appendix [email or web address] Not available 2024 09:48:27 Brother Heart disease [email or web address] Not available 2024 09:48:36 Notes:Brother: Heart Disease Father: Cancer Sister: Cancer Throat Cancer- Father Medical History No medical history recorded. Immunizations Vaccine Type Date Status Note Provider Nam e and Address Organization Details Recorded Time Influenza, high-dose, quadrivalent, PF 1 completed Not Available [facility] 06/03/2023 10:25:15 Influenza, high-dose, quadrivalent, PF 2 completed Not Available [facility] 06/03/2023 10:25:16 COVID-19, mRNA, LNP-S, PF, 30 mcg/0.3 mL dose 1 completed Not Available [facility] 06/03/2023 10:25:16 COVID-19, mRNA, LNP-S, PF, 30 mcg/0.3 mL dose 1 completed Not Available [facility] 06/03/2023 10:25:16 COVID-19, mRNA, LNP-S, PF, 30 mcg/0.3 mL dose 1 completed Not Available [facility] 06/03/2023 10:25:16 COVID-19, mRNA, LNP-S, bivalent, PF, 30 mcg/0.3 mL dose 2 completed [facility] Available [facility] 06/03/2023 10:25:16 pneumococcal polysaccharide PPV23 9 completed Not Available [facility] 06/03/2023 10:25:16 Pneumococcal conjugate PCV 13 8 completed Not Available [facility] 06/03/2023 10:25:16 Influenza, high-dose, trivalent, PF 8 completed Not Available [facility] 06/03/2023 10:25:16 Influenza, high-dose, trivalent, PF 9 completed Not Available [facility] 06/03/2023 10:25:16 Influenza, split virus, quadrivalent, PF 8 completed Not Available [facility] 06/03/2023 10:25:16 Influenza, split virus, quadrivalent, PF 3 completed Aurora Cunningham DO [address] [place] [address], [phone], [facility] 05/12/2023 09:46:48 Pneumococcal conjugate PCV20, polysaccharide CJX034 conjugate, adjuvant, PF 3 completed Aurora Cunningham DO [address] [place] [address], [phone], [facility] 05/12/2023 09:46:48 Influenza, split virus, trivalent, PF 4 completed Aurora Cunningham DO [address] [place] [address], [phone], [facility] 04/09/2024 17:46:06 Past Encounters Encounter ID Performer Location Encounter Start Date Encounter Closed Date Diagnosis/Indication Diagnosis SNOMED-CT Code Diagnosis ICD10 Code Diagnosis Note [id number] Aurora Cunningham DO [facility] ([facility]) [address] [place] [address] 09/07/2024 11:48:04 09/22/2024 14:31:14 Pneumonia 639604656 J18.9 Improving. finish abx. cotinue breathing execises. monitor for return of smptoms or CHF flair. [id number] CARMENZA CLEMENTS [facility] ([facility]) [address] [place] [address] 09/08/2024 13:56:15 09/09/2024 13:46:31 Essential hypertension 61875186 I10 stable. continue coreg [id number] Aurora Cunningham DO [facility] ([facility]) [address] [place] [address] 09/27/2024 09:34:22 09/27/2024 13:36:51 Essential hypertension 68542300 I10 stable. continue coreg Chronic ki dney disease stage 4 876625358 N18.4 N25.81 stable. labs relatively unchaged. no [...] slightly improved. Chronic ob structive pulmonary disease 90951066 J44.9 stable, mild, chronic, continue albuterol Congestive heart failure 27322930 I50.9 [address]26[address] Quiroga, cardiology . Continue lasix 20mg bid and spironolac tone daily. monitor weight and SOB.cardio logy Hypertensi ve heart disease with congestive heart failure 4691217 I11.[address] Quiroga, cardiology . Continue lasix 20mg bid and spironolac tone daily. monitor weight and SOB.cardio logy Health Concerns Section Related Observation LastModified by Organization Detai ls LastModified Time None Recorded Concern Status LastModified by Organization Details LastModified Time None Recorded Payers Encounter Date Sequence Insurance Name Policy Number Policy Matta Covered Member ID Matta Member ID Guarantor Name 09/27/2024 1 [place]ANTAGE - PPO) [id number] Juarez Delgado [id number] Juarez Delgado Notes Date Note Type Note Provider Name and Address Organization Details Recorded Time 09/27/2024 text/html Pt presents for 3 mth [...] more. no leg edema or orthopnea. Aurora Cunningham, DO [address] [place] [address], [phone], [facility] 09/27/2024 10:11:41
--- OUTSIDE RECORDS SUMMARY | 2024-09-30 04:21 | XMS_ITS | Encounter Summary ---
Author Organization [facility] Address [address] [place] [address] Care Team Providers Care Carcass Splitter Name Role Phone Unavailable Primary Care Provider Unavailabl e Encounter Details Date Type Department Care Team (Late st Contact Info) Description 08/12/2006 Outpatient Historical [facility] Wound Care [address] 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
--- OUTSIDE RECORDS SUMMARY | 2024-09-30 04:21 | XMS_ITS | Encounter Summary ---
Author Organization [facility] Address [address] [place] [address] Care Team Providers Care Etymology Professor Name Role Phone Unavailable Primary Care Provider Unavailabl e Encounter Details Date Type Department Care Team (Latest Contact Info) Description 07/31/2001 Outpatient Historical [facility] Occupational Medicine-[facility] [place] [address] [place] [address] Jamil Lynn MD NO ADDRESS ON FILE SPRAIN SACROILIAC NOS (Primary Dx) Social History Tobacco Use Types Packs/Day Years Used Date Smoking Tobacco: Never Assessed Sex and Gender Information Value Date Recorded Sex Assigned at Not on file 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
--- OUTSIDE RECORDS SUMMARY | 2024-09-30 04:21 | XMS_ITS | Clinical Summary ---
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
[2024-09-30 04:28] LABS: Reflex Lactate Order REFLEX LACTIC ORDERD
--- NOTE | 2024-09-30 05:24 | ECG_ITS ---
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 Measurements Intervals [place] Rate: 63 P: 235 WI: 157 QRS: -68 QRSD: 200 T: 105 QT: 485 QTc: 497 Interpretive Statements ELECTRONIC VENTRICULAR PACEMAKER Compared to ECG 09/30/2024 02:17:40 No significant changes Electronically Signed On 10-02-2024 07:49:17 CDT by Jhonathan Jara M.D. [email or web address]
[2024-09-30] MEDS: levothyroxine 112 mcg Tablet PO (05:35)
[2024-09-30] MEDS: heparin 5,000 unit/mL INJ 1 mL 5000 UNIT SUBCUT ×2 (05:35→17:05)
[2024-09-30] MEDS: aspirin 81 mg EC Tablet PO (05:35)
[2024-09-30] MEDS: clopidogrel 75 mg Tablet PO (05:35)
[2024-09-30 06:12] LABS: Lactic Acid level (Lactate) 2.3 mmol/L (0.5-2.2)
[2024-09-30 08:02] LABS: Troponin 5 6HR 71.25 ng/L (0-15); Troponin 5 6HR Delta 1.25 ng/L (0-12)
--- NOTE | 2024-09-30 09:01 | ECG_ITS ---
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 Measurements Intervals [place] Rate: 65 P: 125 ND: 203 QRS: -75 QRSD: 202 T: 106 QT: 466 QTc: 486 Interpretive Statements ELECTRONIC ATRIAL PACEMAKER ELECTRONIC VENTRICULAR PACEMAKER Compared to ECG 09/30/2024 05:24:33 No significant changes Electronically Signed On 10-02-2024 07:49:04 CDT by Jhonathan Jara M.D. [email or web address]
[2024-09-30] MEDS: FUROsemide 10 mg/mL SDV 4mL 40 MG IVP (09:18)
[2024-09-30] MEDS: magnesium oxide 400 mg tablet PO ×2 (09:18→17:05)
[2024-09-30] MEDS: carvedilol 3.125 mg Tablet PO (09:18)
[2024-09-30] MEDS: atorvastatin 40 mg Tablet PO (09:18)
--- NOTE | 2024-09-30 16:01 | PM.MISC ---
Miscellaneous Note Purpose of Documentation: weaned to room air this amorning. LE edema improving. last cr at 1.9, better over previous numbers, has CKD for which he follows with nephrology. Will recheck cr and urine output overnight, anticipate discharge over next 24 hrs if continues to improve
[2024-10-01 03:34] VITALS: BP 100/54; PULSE 59; RESP 18; TEMP 36.4; O2SAT 95
[2024-10-01] MEDS: aspirin 81 mg EC Tablet PO (05:27)
[2024-10-01] MEDS: heparin 5,000 unit/mL INJ 1 mL 5000 UNIT SUBCUT (05:27)
[2024-10-01] MEDS: clopidogrel 75 mg Tablet PO (05:27)
[2024-10-01] MEDS: levothyroxine 112 mcg Tablet PO (05:27)
[2024-10-01 05:52] LABS: Basophils % 0.3 %; Eosinophils % 0.2 %; Hematocrit 42.5 % (37-53); Lymphocytes # 1.5 10^3/uL (0.8-4.8); Lymphocytes % 11.7 %; Mean Corpuscular HGB Conc 33.4 g/dL (30-55); Mean Corpuscular Hemoglobin 30.9 pg (27-33); Mean Corpuscular Volume 92.4 fl (82-101); Mean Platelet Volume 11.5 fL (7.4-10.4); Monocytes % 7.6 %; Neutrophils # 10.13 10^3/uL (1.8-7.7); Neutrophils % 79.8 %; Nucleated Red Blood Cells % 0 %; Platelet Count 205 10^3/cmm (157-399); Red Cell Distribution Width 14.4 % (12.1-15.1); White Blood Count 12.68 10^3/uL (3.29-11.43)
[2024-10-01 06:08] LABS: Anion Gap 18.1 (5-19); Blood Urea Nitrogen 38 mg/dL (8-23); Calcium 9.3 mg/dL (8.5-10.5); Carbon Dioxide 20 mmol/L (22-29); Chloride 102 mmol/L (98-107); Creatinine Clr Calc Pharmacy 31.8217; Glucose 97 mg/dL (65-115); Magnesium 2.6 mg/dL (1.7-2.3); Osmolality Calculated 291 mOsm/kg (285-295); Potassium 4.1 mmol/L (3.5-5.1); Sodium 136 mmol/L (136-145)
[2024-10-01 08:00] VITALS: BP 112/63; PULSE 63; RESP 17; TEMP 36.4; O2SAT 98
[2024-10-01 08:59] VITALS: PULSE 78; RESP 16; O2SAT 94
--- NOTE | 2024-10-01 09:13 | PC.SOCIAL ---
IMM Update Pg. 2 of IMM updated; copy provided at bedside.
[2024-10-01] MEDS: carvedilol 3.125 mg Tablet PO (09:21)
[2024-10-01] MEDS: atorvastatin 40 mg Tablet PO (09:22)
[2024-10-01] MEDS: magnesium oxide 400 mg tablet PO (09:22)
[2024-10-01] MEDS: FUROsemide 10 mg/mL SDV 4mL 40 MG IVP (09:22)
[2024-10-01 11:38] VITALS: BP 107/62; PULSE 57; RESP 17; TEMP 36.3; O2SAT 97
--- NOTE | 2024-10-01 14:08 | P.DS_ITS ---
Discharge Providers Date of Admission: 09/30/24 03:38 Date of Discharge: October 01, 2024 Attending Provider at Admission: Francisco Oropeza MD Attending Provider at Discharge: Lucrecia Cowart MD Primary Care Provider: Gregorio Cunningham DO Diagnoses at Discharge Discharge Diagnosis (1) Systolic CHF: Status: Acute (2) Aortic stenosis: Status: Chronic Qualifiers: Cardiac valve disease etiology: nonrheumatic Qualified Code(s): I35.0 - Nonrheumatic aortic (valve) stenosis Permanent problem details: Echo 10/01 with mild aortic stenosis, [place] 1.6 cm2, mean gradient 11.6 mmHg, peak velocity 2.4 m/sec (3) Hypothyroidism: Status: Chronic Qualifiers: Hypothyroidism type: unspecified Qualified Code(s): E03.9 - Hypothyroidism, unspecified (4) Chronic kidney disease: Status: Chronic Qualifiers: Chronic kidney disease stage: unspecified stage Qualified Code(s): N18.9 - Chronic kidney disease, unspecified (5) Acute hypoxic respiratory failure: Status: Acute (6) COPD (chronic obstructive pulmonary disease): Status: Acute Qualifiers: COPD type: unspecified COPD Qualified Code(s): J44.9 - Chronic obstructive pulmonary disease, unspecified (7) Ex-smoker: Status: Acute (8) Ischemic cardiomyopathy: Status: Acute (9) HTN (hypertension): Status: Chronic Qualifiers: Hypertension type: essential hypertension Qualified Code(s): I10 - Essential (primary) hypertension (10) Acute exacerbation of CHF (congestive heart failure): Status: Acute Qualifiers: Heart failure type: unspecified Qualified Code(s): I50.9 - Heart failure, unspecified Reason for Visit Reason for Visit: sob Hospital Course Hospital Course Juarez Delgado is a 78 year old male with history of ischemic cardiomyopathy, EF 25% status post AICD, who presented to the hospital with worsening orthopnea PND shortness of breath. Does not use any oxygen at home, however was requiring 5 L/min supplementation upon arrival.. He was noted to have an elevated BNP. Chest x-ray showed bilateral pulmonary infiltrates consistent with pulmonary edema. He received treatment with IV Lasix 40 mg every 24 hours. At home patient was taking Lasix 20 mg p.o. daily. Patient diuresed well with IV Lasix. He was able to be weaned down to room air with diuresis. He was noted to have elevated troponins with baseline at 70 trending down to 61 and then 71 without significant delta. Review of prior troponin numbers showed that patient's baseline troponin has ranged between 56-64 chronically. EKG had shown a paced rhythm. He had a fairly recent stress test in June 2024 which had shown fixed perfusion defects in the apical apical anterior inferior and apical lateral dover consistent with prior infarcts. Patient is waiting to start Entresto after discussion with Dr. Griffin on an upcoming appointment on October 05. Overall patient responded well to IV diuresis. He feels much improved. Was able to be weaned down to room air on the day of discharge. He was instructed to increase his Lasix to 40 mg p.o. daily over the next few days and to follow- up with cardiology on October 05. He is discharged home in improved condition Physical Exam Narrative: General: No acute distress, AO x3 HEENT: PERRLA, pupils bilaterally equal and reactive, pallors not present Chest: Normal vesicular breath sounds, no added sounds, equal good air entry bilaterally CVS: S1-S2 regular, no murmurs, no tachycardia, no gallops, no rubs Abdomen: Soft, nontender, no organomegaly, bowel sounds present Neuro: No focal deficits, no facial deformity, AO x3, power 5/5 in all limbs Extremities: Healthy surgical dressing present on the right hip, mild tenderness, soft no erythema. Discharge Data Studies Completed and Pending Completed Studies During Hospitalization Category Date Time Status XR chest 1V portable [id number] Stat Exams 09/30/24 02:24 Completed Radiology Impressions Chest X-Ray 09/30/24 02:24 IMPRESSION: Decreased bibasilar infiltrate/edema. Laboratory Results WBC 12.68 10^3/uL (3.29-11.43) H 10/01/24 04:29 RBC 4.60 10^6/uL (3.85-5.65) 10/01/24 04:29 Hgb 14.20 g/dL (11.27-16.99) 10/01/24 04:29 Hct 42.5 % (37-53) 10/01/24 04:29 MCV 92.4 fl (82-101) 10/01/24 04:29 MCH 30.9 pg (27-33) 10/01/24 04:29 MCHC 33.4 g/dL (30-55) 10/01/24 04:29 RDW 14.4 % (12.1-15.1) 10/01/24 04:29 Plt Count 205 10^3/cmm (157-399) 10/01/24 04:29 MPV 11.5 fL (7.4-10.4) H 10/01/24 04:29 Neut % (Auto) 79.8 % 10/01/24 04:29 Lymph % (Auto) 11.7 % 10/01/24 04:29 [place] % (Auto) 7.6 % 10/01/24 04:29 Eos % (Auto) 0.2 % 10/01/24 04:29 Baso % (Auto) 0.3 % 10/01/24 04:29 Neut # (Auto) 10.13 10^3/uL (1.8-7.7) H 10/01/24 04:29 Lymph # (Auto) 1.5 10^3/uL (0.8-4.8) 10/01/24 04:29 [place] # (Auto) 1.0 10^3/uL (0.2-0.9) H 10/01/24 04:29 Eos # (Auto) 0.0 10^3/uL (0.0-0.8) 10/01/24 04:29 Baso # (Auto) 0.0 10^3/uL (0.0-0.1) 10/01/24 04:29 Nucleated RBC % (auto) 0 % 10/01/24 04: Nucleated RBCs # 0.0 /100WBC 10/01/24 04:29 Sodium 136 mmol/L (136-145) 10/01/24 04:29 Potassium 4.1 mmol/L (3.5-5.1) 10/01/24 04:29 Chloride 102 mmol/L (98-107) 10/01/24 04:29 Carbon Dioxide 20 mmol/L (22-29) L 10/01/24 04:29 Anion Gap 18.1 (5-19) 10/01/24 04:29 BUN 38 mg/dL (8-23) H 10/01/24 04:29 Creatinine 2.3 mg/dL (0.7-1.2) H 10/01/24 04:29 GFR Calculation Not Reportable 10/01/24 04:29 Glucose 97 mg/dL (65-115) 10/01/24 04:29 Calculated Osmolality 291 mOsm/kg (285-295) 10/01/24 04:29 Lactic Acid 2.5 mmol/L (0.5-2.2) H 09/30/24 02:39 Lactic Acid (Sepsis) 2.3 mmol/L (0.5-2.2) H 09/30/24 05:15 Calcium 9.3 mg/dL (8.5-10.5) 10/01/24 04:29 Magnesium 2.6 mg/dL (1.7-2.3) H 10/01/24 04:29 Troponin T Baseline 70 ng/L (0-15) H 09/30/24 01:30 Troponin T 120 Minute 61.93 ng/L (0-15) H 09/30/24 03:20 Delta Troponin T -8.07 ABS# (0-10) L 09/30/24 03:20 Troponin T Hi Sens 6Hr 71.25 ng/L (0-15) H 09/30/24 07:37 Troponin T Hi Sens 6Hr Delta 1.25 ng/L (0-12) 09/30/24 07:37 C-Reactive Protein 3.0 mg/L (0.0-4.9) 10/01/24 04:29 NT-Pro-B Natriuret Pep 4915 pg/mL (0-450) H 09/30/24 01:30 Procalcitonin 0.06 ng/mL (0-0.5) 09/30/24 01:30 Influenza A (PCR) Negative (Negative) 09/30/24 02:10 Influenza Type B (PCR) Negative (Negative) 09/30/24 02:10 RSV (PCR) Negative (Negative) 09/30/24 02:10 SARS-CoV-2 (PCR) Negative (Negative) 09/30/24 02:10 Vitals Last Vital Signs Temp 97.4 F L 10/01/24 11:38 Pulse 57 L 10/01/24 11:38 Resp 17 10/01/24 11:38 BP 107/62 10/01/24 11:38 Pulse Ox 97 10/01/24 11:38 O2 Del Method Room Air 10/01/24 11:38 O2 Flow Rate 2 09/30/24 09:04 Discharge Plan Discharge Patient Disposition: Home Condition: Stable Prescriptions: Continued cholecalciferol (vitamin D3) 50 mcg (2,000 unit) tablet 5,000 unit PO DAILY ferrous gluconate 324 mg (37.5 mg iron) tablet 324 mg PO DAILY levothyroxine 112 mcg capsule 112 mcg PO QAM atorvastatin 40 mg tablet 40 mg PO QAM spironolactone 25 mg tablet 25 mg PO DAILY clopidogrel [Plavix] 75 mg tablet 75 mg PO QAM Qty: 90 3RF carvedilol 3.125 mg tablet 3.125 mg PO BID Qty: 60 2RF aspirin 81 mg Tablet,Delayed Release (Dr/Ec) 81 mg PO QAM 30 Days Qty: 30 0RF nitroglycerin [Nitrostat] 0.4 mg tablet, sublingual 0.4 mg sublingual Q5M PRN (Reason: chest pain) 3 Days Qty: 30 3RF Rx Instructions: do not exceed 3 doses per episode magnesium 200 mg Tablet 400 mg PO DAILY Qty: 60 0RF albuterol sulfate 90 mcg/actuation HFA aerosol inhaler 2 inh inhalation Q8H PRN (Reason: shortness of breath or wheezing) Qty: 8.5 0RF [place] Nasal 0.65 % Aerosol,[place] 1 spray nasal PRN PRN (Reason: Dryness) Qty: 1 0RF sodium bicarbonate 650 mg tablet 650 mg PO DAILY Changed furosemide 20 mg tablet 40 mg PO DAILY 30 Days Qty: 30 0RF Discharge Orders: Discharge Order (Routine); Ordered 10/01/24 Ordered By: Lucrecia Cowart Referrals: Francisco Griffin MD [Physician] - 10/18/24 4:00 pm Gregorio Cunningham DO [Primary Care Provider] - 10/07/24 11:00 am Discharge Diet: Cardiac Discharge Activity: Increase activity as tolerated Patient Instructions: COPD (Chronic Obstructive Pulmonary Disease) (DC), RSV (Respiratory Syncytial Virus) Infection (DC), COPD Stoplight, Opioid Safety, Pain Management Discharge Attestations Time Spent in Discharge Care*: greater than 30 min Status at Discharge: Cognitive status at discharge: cognitively intact , Behavioral status at discharge: cooperative , Quality Metrics Clinical Quality Measures [ No reported AMI, CVA or VTE this stay] Coding Level of Care Code Acute Code for Chg Fwd Diagnoses Systolic CHF I50.20 Nonrheumatic aortic valve stenosis I35.0 Cardiac valve disease etiology: nonrheumatic Hypothyroidism, unspecified type E03.9 Hypothyroidism type: unspecified Chronic kidney disease N18.9 Chronic kidney disease stage: unspecified stage Acute hypoxic respiratory failure J96.01 Chronic obstructive pulmonary disease, unspecified COPD type J44.9 COPD type: unspecified COPD Ex-smoker Z87.891 Ischemic cardiomyopathy I25.5 Essential hypertension I10 Hypertension type: essential hypertension Acute exacerbation of CHF (congestive heart failure) I50.9 Heart failure type: unspecified
== END 2024-10-01 13:35 | disposition home or self-care (01) | DRG 291 ==
LOC: ER 03:52 → MEDSURG 04:17
PROVIDERS: Admitting Provider Internal Medicine; Emergency Provider Emergency Medicine; PCP Electrodiagnostic Medicine; Visit Provider Student in an Organized Health Care Education/Training Program
DX: I13.0 Hypertensive heart and chronic kidney disease with heart failure and stage 1 through stage 4 chronic kidney disease, or unspecified chronic kidney disease (principal); I50.23 Acute on chronic systolic (congestive) heart failure; J96.01 Acute respiratory failure with hypoxia; N18.9 Chronic kidney disease, unspecified; I35.0 Nonrheumatic aortic (valve) stenosis; E03.9 Hypothyroidism, unspecified; J44.9 Chronic obstructive pulmonary disease, unspecified; I25.5 Ischemic cardiomyopathy; I25.10 Atherosclerotic heart disease of native coronary artery without angina pectoris; E78.5 Hyperlipidemia, unspecified; Z87.891 Personal history of nicotine dependence; Z79.82 Long term (current) use of aspirin; Z79.02 Long term (current) use of antithrombotics/antiplatelets; Z95.0 Presence of cardiac pacemaker
CPT/HCPCS: 36415; 71045; 80048; 83605; 83735; 83880; 84145; 84484; 85025; 86140; 87637; 93005; 94640; 96365; 96372; 96375; 99285; J1644; J1940; J1956; J2919; J9999

== ENCOUNTER → 2024-10-05 12:31 | Outpatient (BNVA) | payer MEDICARE, SELFPAY | PROVIDERS: PCP Electrodiagnostic Medicine; Visit Provider Nurse Practitioner Family | DX: Z09 Encounter for follow-up examination after completed treatment for conditions other than malignant neoplasm (principal); I25.5 Ischemic cardiomyopathy | CPT/HCPCS: 99214 ==

== ENCOUNTER → 2024-10-20 12:18 | Outpatient (BNVA) | payer MEDICARE, SELFPAY | PROVIDERS: PCP Electrodiagnostic Medicine; Visit Provider Internal Medicine Cardiovascular Disease | DX: I25.10 Atherosclerotic heart disease of native coronary artery without angina pectoris (principal); I13.0 Hypertensive heart and chronic kidney disease with heart failure and stage 1 through stage 4 chronic kidney disease, or unspecified chronic kidney disease; I50.43 Acute on chronic combined systolic (congestive) and diastolic (congestive) heart failure; I25.5 Ischemic cardiomyopathy | CPT/HCPCS: 99214 ==

== ENCOUNTER → 2024-11-24 11:23 | Outpatient (BNVA) | payer MEDICARE, SELFPAY | PROVIDERS: PCP Electrodiagnostic Medicine; Visit Provider Internal Medicine Cardiovascular Disease | DX: Z45.018 Encounter for adjustment and management of other part of cardiac pacemaker (principal) | CPT/HCPCS: 93296 ==

== ENCOUNTER → 2025-04-29 09:34 | Outpatient (BNVA) | payer MEDICARE, SELFPAY | PROVIDERS: PCP Electrodiagnostic Medicine; Visit Provider Internal Medicine Cardiovascular Disease | DX: I42.9 Cardiomyopathy, unspecified (principal); I25.10 Atherosclerotic heart disease of native coronary artery without angina pectoris; E78.5 Hyperlipidemia, unspecified; I13.0 Hypertensive heart and chronic kidney disease with heart failure and stage 1 through stage 4 chronic kidney disease, or unspecified chronic kidney disease; I50.20 Unspecified systolic (congestive) heart failure; N18.9 Chronic kidney disease, unspecified; Z95.810 Presence of automatic (implantable) cardiac defibrillator; Z87.891 Personal history of nicotine dependence | CPT/HCPCS: 99214 ==